=== PATIENT | female | born 1995 | race Hispanic/Latino ===

== ENCOUNTER 2018-10-31 13:48 | Emergency (ER) | payer OTHER ==
--- NOTE | 2018-10-31 16:04 | RAD REPORT ---
EXAM DESCRIPTION: Jett Gonzales (2 Views)10/31/2018 3:57 pm CLINICAL HISTORY: Cough COMPARISON: None FINDINGS: The lungs appear clear of acute infiltrate. The heart is normal size IMPRESSION: No acute abnormalities displayed
--- NOTE | 2018-10-31 16:14 | ER ---
Nurse's Notes [facility] Name: Angel Leonardo Age: 23 yrs Sex: Female : 1995 Arrival Date: 10/31/2018 Time: 13:52 Bed 24 Private MD: None, None Diagnosis: Cough Presentation: 10/31 14:05 Presenting complaint: Patient states: Pain with cough x 3 weeks. Pain is worse at night hb when supine. Denies fever. Transition of care: patient was not received from another setting of care. Onset of symptoms is unknown. Risk Assessment: Do you want to hurt yourself or someone else? Patient reports no desire to harm self or others. Care prior to arrival: None. 14:05 Method Of Arrival: Ambulatory hb 14:05 Acuity: AURELIO 4 hb 16:23 Initial Sepsis Screen: Does the patient meet any 2 criteria? Yes Does the patient have ls4 a suspected source of infection? No. Patient's initial sepsis screen is negative. Triage Assessment: 15:10 General: Appears in no apparent distress. Behavior is calm, cooperative. Pain: ls4 Complains of pain in chest Pain currently is 6 out of 10 on a pain scale. Neuro: No deficits noted. Cardiovascular: No deficits noted. Respiratory: No deficits noted. GI: No deficits noted. : No deficits noted. 15:10 Musculoskeletal: No deficits noted. 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 - Social history:: Smoking status: Patient/guardian denies using tobacco. - Ebola Screening: : No symptoms or risks identified at this time. Screenin:33 Abuse screen: Denies threats or abuse. Denies injuries from another. Nutritional ls4 screening: No deficits noted. Tuberculosis screening: No symptoms or risk factors identified. Fall Risk None identified. Vital Signs: 14:06 BP 131 / 79; Pulse 93; Resp 18; Temp 97.4; Pulse Ox 99% on R/A; Pain 6/10; hb 15:10 BP 128 / 74; Pulse 78; Resp 16; Temp 98.4(O); Pulse Ox 99% on R/A; Pain 4/10; ls4 ED Course: 13:52 Patient arrived in ED. sb2 13:52 None, None is Private Physician. sb2 14:06 Triage completed. hb 14:06 Arm band placed on right wrist. hb 14:10 Patient has correct armband on for positive identification. Bed in low position. Side ls4 rails up X 1. Warm blanket given. 15:11 Lisa Albert FNP-C is [facility]. kb 15:11 Lion Sarmiento MD is Attending Physician. kb 15:27 Cece Saleh, RN is Primary Nurse. ls4 15:55 Chest Pa And Lat (2 Views) XRAY In Process Unspecified. EDMS 16:08 EKG done, by gyroscope technician. reviewed by Lisa HOUSE. sm3 16:23 No provider procedures requiring assistance completed. Patient did not have IV access ls4 during this emergency room visit. Administered Medications: No medications were administered Point of Care Testing: Urine : 15:28 hCG Reading: Negative; ls4 Outcome: 16:13 Discharge ordered by . kb 16:24 Discharged to home ambulatory, with family. ls4 16:24 Condition: good 16:24 Discharge instructions given to patient, family, Instructed on discharge instructions, follow up and referral plans. safety practices, Demonstrated understanding of instructions, follow-up care, medications. 16:32 Patient left the ED. ls4 Signatures: Dispatcher [employer] EDMA Lisa Albert FNP-C FNP-Ckb Baxter, Heather, RN RN Elsy Mora sb2 Syl Sanchez 3 Cece Saleh, RN RN ls4
--- NOTE | 2018-10-31 16:14 | EDPHYS ---
Physician Documentation [facility] Name: Angel Leonardo Age: 23 yrs Sex: Female : 1995 Arrival Date: 10/31/2018 Time: 13:52 Bed 24 Private MD: None, None ED Physician Lion Sarmiento HPI: 10/31 15:27 This 23 yrs old Female presents to ER via Ambulatory with complaints of kb Painful Cough. 15:27 The patient or guardian reports cough, that is intermittent, described as moderate, kb with no sputum, difficulty breathing. Onset: The symptoms/episode began/occurred 3 week(s) ago. Severity of symptoms: At their worst the symptoms were mild, moderate, in the emergency department the symptoms are unchanged. Modifying factors: The symptoms are alleviated by nothing, the symptoms are aggravated by nothing. Associated signs and symptoms: Pertinent positives: chest pain, Pertinent negatives: diarrhea, ear ache, fever, nausea, rhinorrhea, sore throat, vomiting. The patient has not experienced similar symptoms in the past. The patient has not recently seen a physician. Pt reports chest pain, shortness of breath and cough every night for the past 3 weeks. Denies fever. States she coughs up phlem in the mornings. . 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 - Social history:: Smoking status: Patient/guardian denies using tobacco. - Ebola Screening: : No symptoms or risks identified at this time. ROS: 15:24 Constitutional: Negative for fever, chills, and weight loss, ENT: Negative for injury, kb pain, and discharge, Neck: Negative for injury, pain, and swelling, Abdomen/GI: Negative for abdominal pain, nausea, vomiting, diarrhea, and constipation, Back: Negative for injury and pain, MS/Extremity: Negative for injury and deformity, Skin: Negative for injury, rash, and discoloration, Neuro: Negative for headache, weakness, numbness, tingling, and seizure. 15:24 Cardiovascular: Positive for chest pain, Negative for edema, orthopnea, palpitations, paroxysmal nocturnal dyspnea. 15:24 Respiratory: Positive for cough, with no reported sputum, shortness of breath, Negative for dyspnea on exertion, hemoptysis, orthopnea, pleurisy, sputum production, wheezing. Exam: 15:27 Constitutional: This is a well developed, well nourished patient who is awake, alert, kb and in no acute distress. Head/Face: Normocephalic, atraumatic. ENT: Nares patent. No nasal discharge, no septal abnormalities noted. Tympanic membranes are normal and external auditory canals are clear. Oropharynx with no redness, swelling, or masses, exudates, or evidence of obstruction, uvula midline. Mucous membranes moist. Neck: Trachea midline, no thyromegaly or masses palpated, and no cervical lymphadenopathy. Supple, full range of motion without nuchal rigidity, or vertebral point tenderness. No Meningismus. Chest/axilla: Normal chest wall appearance and motion. Nontender with no deformity. No lesions are appreciated. Cardiovascular: Regular rate and rhythm with a normal S1 and S2. No gallops, murmurs, or rubs. Normal PMI, no JVD. No pulse deficits. Respiratory: Lungs have equal breath sounds bilaterally, clear to auscultation and percussion. No rales, rhonchi or wheezes noted. No increased work of breathing, no retractions or nasal flaring. Abdomen/GI: Soft, non-tender, with normal bowel sounds. No distension or tympany. No guarding or rebound. No evidence of tenderness throughout. Skin: Warm, dry with normal turgor. Normal color with no rashes, no lesions, and no evidence of cellulitis. MS/ Extremity: Pulses equal, no cyanosis. Neurovascular intact. Full, normal range of motion. Neuro: Awake and alert, GCS 15, oriented to person, place, time, and situation. Cranial nerves II-XII grossly intact. Motor strength 5/5 in all extremities. Sensory grossly intact. Cerebellar exam normal. Normal gait. Vital Signs: 14:06 BP 131 / 79; Pulse 93; Resp 18; Temp 97.4; Pulse Ox 99% on R/A; Pain 6/10; hb 15:10 BP 128 / 74; Pulse 78; Resp 16; Temp 98.4(O); Pulse Ox 99% on R/A; Pain 4/10; ls4 MDM: 15:14 Patient medically screened. kb 15:23 Data reviewed: vital signs, nurses notes. Data interpreted: Pulse oximetry: on room air kb is 99 %. Interpretation: normal. 16:10 Counseling: I had a detailed discussion with the patient and/or guardian regarding: the kb historical points, exam findings, and any diagnostic results supporting the discharge/admit diagnosis, radiology results, the need for outpatient follow up, a family practitioner, to return to the emergency department if symptoms worsen or persist or if there are any questions or concerns that arise at home. 10/31 15:20 Order name: Chest Pa And Lat (2 Views) XRAY; Complete Time: 16:10 kb 10/31 15:20 Order name: EKG; Complete Time: 15:21 kb 10/31 15:20 Order name: EKG - Nurse/Tech; Complete Time: 16:21 kb Administered Medications: No medications were administered Point of Care Testing: Urine : 15:28 hCG Reading: Negative; ls4 Disposition: 17:56 Co-signature as Attending Physician, Lion Sarmiento MD. rn Disposition: 10/31/18 16:13 Discharged to Home. Impression: Cough. - Condition is Stable. - Discharge Instructions: Cough, Adult, [id number]. - Prescriptions for Tessalon Perles 100 mg Oral Capsule - take 1 capsule by ORAL route every 8 hours As needed; 15 capsule. Albuterol Sulfate 90 mcg/actuation - inhale 1-2 puff by INHALATION route every 4-6 hours; 1 Inhaler. - Work release form, Medication Reconciliation Form, Thank You Letter, Antibiotic Education, Prescription Opioid Use form. - Follow up: Emergency Department; When: As needed; Reason: Worsening of condition. Follow up: Private Physician; When: 2 - 3 days; Reason: Recheck today's complaints, Continuance of care, Re-evaluation by your physician. Signatures: Dispatcher [employer] Lisa Delgado, ROLL FILLER-C ROLL FILLER-Ckb Lion Sarmiento MD MD rn Baxter, Heather, RN RN hb Stewart, Lisa, RN RN ls4 Corrections: (The following items were deleted from the chart) 16:32 16:13 10/31/2018 16:13 Discharged to Home. Impression: Cough. Condition is Stable. ls4 Discharge Instructions: Cough, Adult, [id number]. Prescriptions for Tessalon Perles 100 mg Oral Capsule - take 1 capsule by ORAL route every 8 hours As needed; 15 capsule, Albuterol Sulfate 90 mcg/actuation - inhale 1-2 puff by INHALATION route every 4-6 hours; 1 Inhaler. and Forms are Medication Reconciliation Form, Thank You Letter, Antibiotic Education, Prescription Opioid Use. Follow up: Emergency Department; When: As needed; Reason: Worsening of condition. Follow up: Private Physician; When: 2 - 3 days; Reason: Recheck today's complaints, Continuance of care, Re-evaluation by your physician. kb
--- NOTE | 2018-10-31 23:12 | EKG ---
Test Date: 2018-10-31 Test Time: 15:59:45 Meat Packager: SHANNA MEASUREMENT RESULTS: Intervals: Rate: 66 [place]: 154 QRSD: 84 QT: 370 QTc: 387 [place]: P: 59 [place]: 154 QRS: 84 T: 59 INTERPRETIVE STATEMENTS: Normal sinus rhythm Possible Left atrial enlargement Borderline ECG No previous ECG available for comparison Electronically Signed On 10-31-18 23:12:02 MANAGER STRATEGY & ACCOUNT by Leonel Loyd
== END 2018-10-31 16:32 | disposition home or self-care (01) ==
LOC: ER 13:48
DX: R05 Cough (principal)
CPT/HCPCS: 71046; 93005; 99283

== ENCOUNTER 2019-03-12 07:40 | Emergency (ER) | payer OTHER, SELFPAY ==
[2019-03-12 08:34] LABS: Absolute Lymphocytes (CBC) 1.9 K/uL (0.7-4.9); Absolute Monocytes 0.5 K/uL (0.1-1.3); Absolute Neutrophil 3.9 K/uL (1.8-8.0); Basophils % 0.9 % (0-1.3); Eosinophils % 7.3 % (0-4.4); Hematocrit 32.1 % (36.0-45.0); Lymphocytes % 28.1 % (15.3-44.8); MPV 9.3 fL (7.6-11.3); Monocytes % 7.1 % (3.3-12.3); RBC Red Blood Cell Count 4.34 M/uL (3.86-4.86)
[2019-03-12] MEDS ORDERED: NA CHLORIDE 0.9% 1,000 ML ONE (08:36)
[2019-03-12 08:53] LABS: ALT/SGPT 19 U/L (12-78); AST/SGOT 10 U/L (15-37); Albumin 3.3 g/dL (3.4-5.0); Alkaline Phosphatase 77 U/L (45-117); BUN Blood Urea Nitrogen 11 mg/dL (7-18); Bicarbonate 26 mmol/L (21-32); Bilirubin Direct < 0.1 mg/dL (0-0.2); Bilirubin Total 0.2 mg/dL (0.2-1.0); Glucose Level 77 mg/dL (74-106); Lipase 98 U/L (73-393); Potassium 3.8 mmol/L (3.5-5.1); Protein, Total 6.6 g/dL (6.4-8.2); Sodium Level 141 mmol/L (136-145)
[2019-03-12 09:02] LABS: HCG, Quantitative < 1 mIU/mL (1-3)
--- NOTE | 2019-03-12 09:02 | RAD REPORT ---
EXAM DESCRIPTION: US - Abdomen Exam Limited - 03/12/2019 8:39 am CLINICAL HISTORY: Abdominal pain COMPARISON: None. FINDINGS: Multiple small sub centimeter mobile gallstones are present layering along the dependent p ortion of the gallbladder. There is no wall thickening or pericholecystic fluid. No common duct stone or biliary tree dilatation identified. IMPRESSION: Numerous sub centimeter mobile gallstones are present. No wall thickening or pericholecystic fluid. No duct stone or biliary tree dilatation.
--- NOTE | 2019-03-12 09:36 | EDPHYS ---
Physician Documentation [facility] Name: Angel Leonardo Age: 23 yrs Sex: Female : 1995 Arrival Date: 03/12/2019 Time: 07:43 Bed 13 Private MD: ED Physician Sergio Samuel HPI: 03/12 08:16 This 23 yrs old Female presents to ER via Ambulatory with complaints of rich Abdominal Cramping. 08:16 The patient presents to the emergency department with abdominal pain, of the epigastric rich area, right upper quadrant and left upper quadrant. 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 - Social history:: Smoking status: Patient/guardian denies using tobacco. - Ebola Screening: : No symptoms or risks identified at this time. ROS: 08:17 Constitutional: Negative for fever, chills, and weight loss, Eyes: Negative for injury, rich pain, redness, and discharge, ENT: Negative for injury, pain, and discharge, Neck: Negative for injury, pain, and swelling, Cardiovascular: Negative for chest pain, palpitations, and edema, Respiratory: Negative for shortness of breath, cough, wheezing, and pleuritic chest pain, Back: Negative for injury and pain, : Negative for injury, bleeding, discharge, and swelling, MS/Extremity: Negative for injury and deformity, Skin: Negative for injury, rash, and discoloration, Neuro: Negative for headache, weakness, numbness, tingling, and seizure, Psych: Negative for depression, anxiety, suicide ideation, homicidal ideation, and hallucinations, Allergy/Immunology: Negative for hives, rash, and allergies, Endocrine: Negative for neck swelling, polydipsia, polyuria, polyphagia, and marked weight changes, Hematologic/Lymphatic: Negative for swollen nodes, abnormal bleeding, and unusual bruising. 08:17 Abdomen/GI: Positive for abdominal pain, of the epigastric area, right upper quadrant and left upper quadrant. Exam: 08:17 Constitutional: This is a well developed, well nourished patient who is awake, alert, rich and in no acute distress. Head/Face: Normocephalic, atraumatic. Eyes: Pupils equal round and reactive to light, extra-ocular motions intact. Lids and lashes normal. Conjunctiva and sclera are non-icteric and not injected. Cornea within normal limits. Periorbital areas with no swelling, redness, or edema. ENT: Nares patent. No nasal discharge, no septal abnormalities noted. Tympanic membranes are normal and external auditory canals are clear. Oropharynx with no redness, swelling, or masses, exudates, or evidence of obstruction, uvula midline. Mucous membranes moist. Neck: Trachea midline, no thyromegaly or masses palpated, and no cervical lymphadenopathy. Supple, full range of motion without nuchal rigidity, or vertebral point tenderness. No Meningismus. Chest/axilla: Normal chest wall appearance and motion. Nontender with no deformity. No lesions are appreciated. Cardiovascular: Regular rate and rhythm with a normal S1 and S2. No gallops, murmurs, or rubs. Normal PMI, no JVD. No pulse deficits. Respiratory: Lungs have equal breath sounds bilaterally, clear to auscultation and percussion. No rales, rhonchi or wheezes noted. No increased work of breathing, no retractions or nasal flaring. Back: No spinal tenderness. No costovertebral tenderness. Full range of motion. Skin: Warm, dry with normal turgor. Normal color with no rashes, no lesions, and no evidence of cellulitis. MS/ Extremity: Pulses equal, no cyanosis. Neurovascular intact. Full, normal range of motion. Neuro: Awake and alert, GCS 15, oriented to person, place, time, and situation. Cranial nerves II-XII grossly intact. Motor strength 5/5 in all extremities. Sensory grossly intact. Cerebellar exam normal. Normal gait. Psych: Awake, alert, with orientation to person, place and time. Behavior, mood, and affect are within normal limits. 08:17 Abdomen/GI: Inspection: abdomen appears normal, Bowel sounds: normal, Palpation: abdomen is soft and non-tender, Liver: no appreciated palpable abnormalities, Hernia: not appreciated. Vital Signs: 07:47 BP 113 / 87; Pulse 79; Resp 16; Temp 97.4(TE); Pulse Ox 100% on R/A; Weight 53.52 kg; hb Height 5 ft. 5 in. (165.10 cm); Pain 6/10; 09:59 BP 122 / 78; Pulse 70; Resp 16; Pulse Ox 100% on R/A; ae4 07:47 Body Mass Index 19.64 (53.52 kg, 165.10 cm) hb MDM: 07:43 Patient medically screened. [facility] 08:17 Data reviewed: vital signs, nurses notes, lab test result(s), radiologic studies, [facility] ultrasound. 03/12 08:16 Order name: Basic Metabolic Panel; Complete Time: 09:19 [facility] 03/12 08:16 Order name: CBC with Diff; Complete Time: 09:19 [facility] 03/12 08:16 Order name: Creatinine for Radiology; Complete Time: 09:19 [facility] 03/12 08:16 Order name: Hepatic Function; Complete Time: 09:19 [facility] 03/12 08:16 Order name: Lipase; Complete Time: 09:19 [facility] 03/12 08:16 Order name: HCG-Quantitative; Complete Time: 09:19 [facility] 03/12 08:16 Order name: IV Saline Lock; Complete Time: 08:28 [facility] 03/12 08:16 Order name: US Abdomen Limited; Complete Time: 09:19 [facility] 03/12 09:20 Order name: Urine Culture [facility] 03/12 09:25 Order name: Urine Dipstick--Ancillary (enter results) 03/12 09:25 Order name: Urine --Ancillary (enter results) 03/12 08:16 Order name: Labs collected and sent; Complete Time: 08:29 [facility] 03/12 08:16 Order name: Urine Dipstick-Ancillary (obtain specimen); Complete Time: 09:13 [facility] 03/12 08:16 Order name: Urine Test (obtain specimen); Complete Time: 09:13 [facility] Administered Medications: 08:28 Drug: NS 0.9% 1000 ml Route: IV; Rate: 1 bolus; Site: right antecubital; hb 09:30 Follow up: IV Status: Completed infusion ae4 09:48 Not Given (Ordering, and administering protocol): Rocephin - (cefTRIAXone) 1 grams IVPB ae4 once over 30 mins; (mix in 50 mL NS) 09:50 Drug: Rocephin 1 grams Route: IV; Rate: calculated rate; Site: right antecubital; ae4 09:59 Follow up: IV Status: Completed infusion ae4 Disposition: 03/12/19 09:35 Discharged to Home. Impression: Cholelithiasis, Urinary tract infection, site not specified. - Condition is Stable. - Discharge Instructions: Urinary Tract Infection, Adult, Cholelithiasis, Cholelithiasis, [id number], Urinary Tract Infection, Adult, [id number]. - Prescriptions for Keflex 500 mg Oral Capsule - take 1 capsule by ORAL route every 6 hours for 7 days; 28 capsule. - Medication Reconciliation Form, Thank You Letter, Antibiotic Education, Prescription Opioid Use form. - Family Work Release (03/12/19 10:01). ae4 - Follow up: Private Physician; When: 2 - 3 days; Reason: Recheck today's complaints, Continuance of care, Re-evaluation by your physician. Follow up: Ronn Zamudio MD; When: 2 - 3 days; Reason: Recheck today's complaints, Continuance of care, Re-evaluation by your physician. - Problem is new. - Symptoms have improved. Signatures: Dispatcher [employer] EDID Sergio Samuel MD MD cha Baxter, Heather, CHINO RN Suhail Pierre RN RN ae4 Corrections: (The following items were deleted from the chart) 10:00 09:35 03/12/2019 09:35 Discharged to Home. Impression: Cholelithiasis; Urinary tract ae4 infection, site not specified. Condition is Stable. Forms are Medication Reconciliation Form, Thank You Letter, Antibiotic Education, Prescription Opioid Use. Follow up: Private Physician; When: 2 - 3 days; Reason: Recheck today's complaints, Continuance of care, Re-evaluation by your physician. Follow up: Ronn Zamudio; When: 2 - 3 days; Reason: Recheck today's complaints, Continuance of care, Re-evaluation by your physician. Problem is new. Symptoms have improved. rich
--- NOTE | 2019-03-12 09:36 | ER ---
Nurse's Notes [facility] Name: Angel Leonardo Age: 23 yrs Sex: Female : 1995 Arrival Date: 03/12/2019 Time: 07:43 Bed 13 Private MD: Diagnosis: Cholelithiasis;Urinary tract infection, site not specified Presentation: 03/12 07:48 Presenting complaint: Upper abdominal cramping x 2 days. Pt stated "I started my period hb 17 days late last week and it was very light and only lasted a couple days. The last time this happened I was but my hCG levels were too low to show up in a urine test.". Transition of care: patient was not received from another setting of care. Onset of symptoms was March 11, 2019. Risk Assessment: Do you want to hurt yourself or someone else? Patient reports no desire to harm self or others. Initial Sepsis Screen: Does the patient meet any 2 criteria? No. Patient's initial sepsis screen is negative. Does the patient have a suspected source of infection? No. Patient's initial sepsis screen is negative. Care prior to arrival: None. 07:48 Method Of Arrival: Ambulatory hb 07:48 Acuity: AURELIO 3 hb Triage Assessment: 07:51 General: Appears in no apparent distress. Behavior is calm, cooperative. Pain: Pain hb currently is 6 out of 10 on a pain scale. EENT: No signs and/or symptoms were reported regarding the EENT system. Neuro: Level of Consciousness is awake, alert, obeys commands, Oriented to person, place, time, situation. Cardiovascular: Reports Capillary refill < 3 seconds Patient's skin is warm and dry. Respiratory: Airway is patent Respiratory effort is even, unlabored, Respiratory pattern is regular, symmetrical. GI: Abdomen is non-distended, Reports upper abdominal pain. : No signs and/or symptoms were reported regarding the genitourinary system. Derm: Skin is intact, is healthy with good turgor. Musculoskeletal: No signs and/or symptoms reported regarding the musculoskeletal system. 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 - Social history:: Smoking status: Patient/guardian denies using tobacco. - Ebola Screening: : No symptoms or risks identified at this time. Screenin:52 Abuse screen: Denies threats or abuse. Denies injuries from another. Nutritional hb screening: No deficits noted. Tuberculosis screening: No symptoms or risk factors identified. Fall Risk None identified. Assessment: 07:52 General: see triage assessment. hb 08:55 Reassessment: Received bedside report from CHINO Vieira, patient is lying in bed with IV ae4 fluids running. Patient states she has to urinate at this time, urine sample collected. and child remain at bedside. Vital Signs: 07:47 BP 113 / 87; Pulse 79; Resp 16; Temp 97.4(TE); Pulse Ox 100% on R/A; Weight 53.52 kg; hb Height 5 ft. 5 in. (165.10 cm); Pain 6/10; 09:59 BP 122 / 78; Pulse 70; Resp 16; Pulse Ox 100% on R/A; ae4 07:47 Body Mass Index 19.64 (53.52 kg, 165.10 cm) hb ED Course: 07:43 Patient arrived in ED. as 07:43 Sergio Samuel MD is Attending Physician. rich 07:47 Isha Parikh, CHINO is Primary Nurse. hb 07:47 Arm band placed on. hb 07:50 Triage completed. hb 07:52 Patient has correct armband on for positive identification. Bed in low position. Call hb light in reach. Side rails up X 1. 08:28 Inserted saline lock: 20 gauge in right antecubital area, using aseptic technique. hb Blood collected. 08:39 US Abdomen Limited In Process Unspecified. EDMS 08:46 Ultrasound completed. Patient tolerated well. Patient moved back from ultrasound. aa4 09:33 Ronn Zamudio MD is Referral Physician. rich Administered Medications: 08:28 Drug: NS 0.9% 1000 ml Route: IV; Rate: 1 bolus; Site: right antecubital; hb 09:30 Follow up: IV Status: Completed infusion ae4 09:48 Not Given (Ordering, and administering protocol): Rocephin - (cefTRIAXone) 1 grams IVPB ae4 once over 30 mins; (mix in 50 mL NS) 09:50 Drug: Rocephin 1 grams Route: IV; Rate: calculated rate; Site: right antecubital; ae4 09:59 Follow up: IV Status: Completed infusion ae4 Outcome: 09:35 Discharge ordered by MD. villanueva 10:00 Patient left the ED. ae4 Signatures: Dispatcher [employer] EDMS Sergio Samuel MD MD cha Martinez, Amelia as Frazier, Amanda aa4 Isha Parikh RN RN Suhail Pierre RN RN ae4 Corrections: (The following items were deleted from the chart) 07:54 07:48 Presenting complaint: Upper abdominal cramping x 2 days. Pt stated "I started my hb period 17 days late last week and it was very light, last time this happened I was but my hCG levels were too low to show up in a urine test." hb
[2019-03-12] MEDS ORDERED: CEFTRIAXONE/SWI 1gm 1 GM/10 ML SYR ONE (10:07)
[2019-03-12 10:09] LABS: Urine Blood 1+ (NEG); Urine Glucose NEGATIVE (NEG); Urine Protein NEGATIVE (NEG)
== END 2019-03-12 10:00 | disposition home or self-care (01) ==
LOC: ER 07:40
DX: K80.20 Calculus of gallbladder without cholecystitis without obstruction (principal); N39.0 Urinary tract infection, site not specified
CPT/HCPCS: 36415; 76705; 80048; 80076; 81003; 81025; 83690; 84702; 85025; 87086; 87088; 96361; 96374; 99284; J0696; J7030

== ENCOUNTER 2019-05-18 19:23 | Emergency (ER) | payer SELFPAY ==
[2019-05-18 19:58] LABS: Urine Blood NEGATIVE (NEG); Urine Glucose NEGATIVE (NEG); Urine Protein NEGATIVE (NEG); Urine Specific Gravity 1.015 (1.005-1.030)
[2019-05-18 20:04] LABS: Hematocrit 33.2 % (36.0-45.0); Lymphocytes % 35.3 % (15.3-44.8); MPV 9.1 fL (7.6-11.3); RBC Red Blood Cell Count 4.12 M/uL (3.86-4.86)
[2019-05-18 20:06] LABS: Urine Amorphous Sediment 2+ /HPF (NONE SEEN); Urine Bacteria <20 /HPF (<20); Urine Culture Reflex Order NOT NEEDED; Urine RBC <5 /HPF (NONE SEEN)
[2019-05-18 20:22] LABS: BUN Blood Urea Nitrogen 13 mg/dL (7-18); Bicarbonate 28 mmol/L (21-32); Glucose Level 80 mg/dL (74-106); Lipase 131 U/L (73-393); Potassium 3.5 mmol/L (3.5-5.1); Sodium Level 146 mmol/L (136-145)
[2019-05-18 20:32] LABS: Blood Morphology Comment NOTED (NOT SEEN); Platelet Estimate ADEQ; Urine White Blood Cell Casts OK
[2019-05-18 20:33] LABS: Poikilocytosis 1+
[2019-05-18 20:48] LABS: HCG, Quantitative < 1 mIU/mL (1-3)
--- NOTE | 2019-05-18 21:47 | ER ---
Nurse's Notes [facility] Name: Angel Leonardo Age: 23 yrs Sex: Female : 1995 Arrival Date: 05/18/2019 Time: 19:27 Bed 19 Private MD: Diagnosis: Lower abdominal pain, unspecified Presentation: 05/18 19:29 Presenting complaint: Patient states: Lower abdominal cramping. Positive aj test. Transition of care: patient was not received from another setting of care. Onset of symptoms was May 18, 2019. Risk Assessment: Do you want to hurt yourself or someone else? Patient reports no desire to harm self or others. Initial Sepsis Screen: Does the patient meet any 2 criteria? No. Patient's initial sepsis screen is negative. Does the patient have a suspected source of infection? No. Patient's initial sepsis screen is negative. 19:29 Method Of Arrival: Ambulatory aj 19:29 Acuity: AURELIO 3 aj 19:50 Care prior to arrival: None. cc3 Triage Assessment: 19:30 General: Appears in no apparent distress. comfortable, Behavior is calm, cooperative, aj appropriate for age. Pain: Denies pain. Neuro: Level of Consciousness is awake, alert, obeys commands, Oriented to person, place, time, situation, Appropriate for age. Respiratory: Airway is patent Respiratory effort is even, unlabored, Respiratory pattern is regular, symmetrical. GI: Reports cramping. Derm: Skin is intact, is healthy with good turgor, Skin is pink, warm \T\ dry. normal. 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 - Social history:: Smoking status: Patient/guardian denies using tobacco. - Ebola Screening: : Patient negative for fever greater than or equal to 101.5 degrees Fahrenheit, and additional compatible Ebola Virus Disease symptoms Patient denies exposure to infectious person Patient denies travel to an Ebola-affected area in the 21 days before illness onset No symptoms or risks identified at this time. Screenin:50 Abuse screen: Denies threats or abuse. Denies injuries from another. Nutritional cc3 screening: No deficits noted. Tuberculosis screening: No symptoms or risk factors identified. Fall Risk Ambulatory Aid- None/Bed Rest/Nurse Assist (0 pts). Gait- Normal/Bed Rest/Wheelchair (0 pts) Mental Status- Oriented to own ability (0 pts). Assessment: 19:32 General: Appears in no apparent distress. comfortable, Behavior is calm, cooperative, cc3 appropriate for age. Pain: Complains of pain in lower abdomen Pain currently is 3 out of 10 on a pain scale. Neuro: Level of Consciousness is awake, alert, obeys commands, Oriented to person, place, time, situation, Appropriate for age. Cardiovascular: Denies chest pain, Capillary refill < 3 seconds Patient's skin is warm and dry. Respiratory: Airway is patent Respiratory effort is even, unlabored, Respiratory pattern is regular, symmetrical. GI: Bowel sounds present X 4 quads. Abd is soft and non tender X 4 quads. : No signs and/or symptoms were reported regarding the genitourinary system. EENT: No signs and/or symptoms were reported regarding the EENT system. Derm: Skin is intact, is healthy with good turgor, Skin is pink, warm \T\ dry. normal. Musculoskeletal: Circulation, motion, and sensation intact. Range of motion: intact in all extremities. 20:10 Reassessment: Patient appears in no apparent distress at this time. Patient and/or cc3 family updated on plan of care and expected duration. Pain level reassessed. Patient is alert, oriented x 3, equal unlabored respirations, skin warm/dry/pink. 21:14 Reassessment: Patient appears in no apparent distress at this time. Patient and/or cc3 family updated on plan of care and expected duration. Pain level reassessed. Patient is alert, oriented x 3, equal unlabored respirations, skin warm/dry/pink. 21:39 Reassessment: Ultrasound done by obstetrics technician bedside, awaiting result. cc3 22:05 Reassessment: Patient appears in no apparent distress at this time. Patient and/or cc3 family updated on plan of care and expected duration. Pain level reassessed. Patient is alert, oriented x 3, equal unlabored respirations, skin warm/dry/pink. PA Page discharged the patient home with prescription given. IV cannula removed and patient left ER vitally stable and ambulatory with her friend. No valuables left in the patient's room. Patient denies pain at this time. Patient states feeling better. Patient states symptoms have improved. Vital Signs: 19:30 BP 138 / 82; Pulse 78; Resp 16; Temp 98.4; Pulse Ox 99% on R/A; Weight 68.04 kg; Height aj 5 ft. 7 in. (170.18 cm); 20:45 BP 119 / 78; Pulse 81; Resp 17 S; Pulse Ox 100% on R/A; cc3 21:13 BP 111 / 72; Pulse 76; Resp 16 S; Pulse Ox 100% on R/A; cc3 22:00 BP 112 / 77; Pulse 75; Resp 16 S; Pulse Ox 100% on R/A; cc3 19:30 Body Mass Index 23.49 (68.04 kg, 170.18 cm) ED Course: 19:27 Patient arrived in ED. es 19:29 Triage completed. aj 19:30 Arm band placed on left wrist. Patient placed in an exam room. aj 19:31 Sergio Tran PA is PHCP. cp 19:31 Sergio Samuel MD is Attending Physician. cp 19:32 Suzie Javier is Primary Nurse. cc3 19:40 Urine collected: clean catch specimen, clear, travis colored. Patient maintains SpO2 jp3 saturation greater than 95% on room air. 19:49 Bed in low position. Call light in reach. Side rails up X 1. Verbal reassurance given. jp3 Pulse ox on. NIBP on. 19:54 Urine Microscopic Only Sent. jp3 19:54 Urine Dipstick--Ancillary (enter results) Sent. jp3 19:54 Urine --Ancillary (enter results) Sent. jp3 19:55 Inserted saline lock: 20 gauge in right antecubital area, using aseptic technique. cc3 Blood collected. 22:05 No provider procedures requiring assistance completed. IV discontinued, intact, cc3 bleeding controlled, No redness/swelling at site. Pressure dressing applied. 22:20 US Transvaginal Study (Probe) In Process Unspecified. EDMS Administered Medications: No medications were administered Outcome: 21:46 Discharge ordered by . cp 22:05 Patient left the ED. cc3 22:05 Discharged to home ambulatory, with friend. cc3 22:05 Condition: stable 22:05 Discharge instructions given to patient, Instructed on discharge instructions, follow up and referral plans. medication usage, Demonstrated understanding of instructions, follow-up care, medications, Prescriptions given X 1. Signatures: Dispatcher [employer] China Escamilla, Lilo Lr RN, Corey, PA PA cp Pisarski, Jacob jp3 Suzie Javier cc3
--- NOTE | 2019-05-18 21:47 | EDPHYS ---
Physician Documentation [facility] Name: Angel Leonardo Age: 23 yrs Sex: Female : 1995 Arrival Date: 05/18/2019 Time: 19:27 Bed 19 Private MD: ED Physician Sergio Saumel HPI: 05/18 19:55 This 23 yrs old Female presents to ER via Ambulatory with complaints of cp Abdominal Pain. 19:55 The patient presents with abdominal pain in the lower abdomen. cp 19:55 Onset: The symptoms/episode began/occurred today. The symptoms do not radiate. cp Associated signs and symptoms: Pertinent negatives: blood in stools, constipation, diarrhea, dysuria, fever, vaginal discharge, vaginal bleeding. The symptoms are described as waxing/waning. Severity of pain: in the emergency department the pain is a 3 / 10. Patient reports taking test times 2 with 1 test positive and 1 test negative. 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 - Social history:: Smoking status: Patient/guardian denies using tobacco. - Ebola Screening: : Patient negative for fever greater than or equal to 101.5 degrees Fahrenheit, and additional compatible Ebola Virus Disease symptoms Patient denies exposure to infectious person Patient denies travel to an Ebola-affected area in the 21 days before illness onset No symptoms or risks identified at this time. ROS: 20:00 Constitutional: Negative for body aches, chills, fever, poor PO intake. cp 20:00 Eyes: Negative for injury, pain, redness, and discharge. cp 20:00 ENT: Negative for drainage from ear(s), ear pain, sore throat, difficulty swallowing, difficulty handling secretions. 20:00 Respiratory: Negative for cough, shortness of breath, wheezing. 20:00 Abdomen/GI: Positive for abdominal pain, of the right lower quadrant and left lower quadrant, Negative for vomiting, diarrhea, constipation, anorexia, black/tarry stool, rectal bleeding. 20:00 Back: Negative for radiated pain. 20:00 : Negative for urinary symptoms, vaginal bleeding, vaginal discharge. 20:00 Skin: Negative for rash. 20:00 All other systems are negative. Exam: 20:10 Constitutional: The patient appears in no acute distress, alert, awake, non-toxic, well cp developed, well nourished. 20:10 Head/Face: Normocephalic, atraumatic. cp 20:10 Eyes: Periorbital structures: appear normal, Conjunctiva: normal, no exudate, no injection, Lids and lashes: appear normal, bilaterally. 20:10 ENT: External ear(s): are unremarkable, Nose: is normal, Mouth: Lips: moist, Oral mucosa: pink and intact, moist, Posterior pharynx: is normal, airway is patent, no erythema, no exudate. 20:10 Chest/axilla: Inspection: normal, Palpation: is normal, no crepitus, no tenderness. 20:10 Cardiovascular: Rate: normal, Rhythm: regular. 20:10 Respiratory: the patient does not display signs of respiratory distress, Respirations: normal, no use of accessory muscles, no retractions, no splinting, no tachypnea, labored breathing, is not present, Breath sounds: are clear throughout, no decreased breath sounds, no stridor, no wheezing. 20:10 Abdomen/GI: Inspection: abdomen appears normal, Bowel sounds: active, all quadrants, Palpation: soft, in all quadrants, mild abdominal tenderness, in the right lower quadrant and left lower quadrant, rebound tenderness, is not appreciated, voluntary guarding, is not appreciated, involuntary guarding, is not appreciated. 20:10 Back: pain, is absent, ROM is normal. 21:46 : Pelvic Exam: The exam is refused by the patient/guardian. The risks and cp consequences are understood by the patient. Vital Signs: 19:30 BP 138 / 82; Pulse 78; Resp 16; Temp 98.4; Pulse Ox 99% on R/A; Weight 68.04 kg; Height aj 5 ft. 7 in. (170.18 cm); 20:45 BP 119 / 78; Pulse 81; Resp 17 S; Pulse Ox 100% on R/A; cc3 21:13 BP 111 / 72; Pulse 76; Resp 16 S; Pulse Ox 100% on R/A; cc3 22:00 BP 112 / 77; Pulse 75; Resp 16 S; Pulse Ox 100% on R/A; cc3 19:30 Body Mass Index 23.49 (68.04 kg, 170.18 cm) aj MDM: 19:32 Patient medically screened. cp 20:00 Differential diagnosis: Ectopic , Ovarian Torsion, Pelvic Inflammatory cp Disease, Pyelonephritis, Ureterolithiasis, urinary tract infection. 21:45 Data reviewed: vital signs, nurses notes, lab test result(s), radiologic studies, cp ultrasound. 21:45 Counseling: I had a detailed discussion with the patient and/or guardian regarding: the cp historical points, exam findings, and any diagnostic results supporting the discharge/admit diagnosis, lab results, radiology results, to return to the emergency department if symptoms worsen or persist or if there are any questions or concerns that arise at home. Special discussion: Based on the patient's Hx, exam, and Dx evaluation, there is no indication for emergent surgery or inpatient Tx. It is understood by the patient/guardian that if the Sx's persist or worsen they need to return immediately for re-evaluation. 05/18 19:49 Order name: Quantitative Hcg; Complete Time: 20:59 cp 05/18 19:49 Order name: Basic Metabolic Panel; Complete Time: 20:59 cp 05/18 21:36 Interpretation: Normal except: NA 146; CL 111. cp 05/18 19:49 Order name: CBC with Diff; Complete Time: 20:59 cp 05/18 21:36 Interpretation: Normal except: HGB 10.9; HCT 33.2; MCV 80.7; MCH 26.4; RDW 20.8; cp EOSINOPHIL % 6.1. 05/18 19:49 Order name: Lipase; Complete Time: 20:59 cp 05/18 19:49 Order name: Urine Microscopic Only; Complete Time: 20:33 cp 05/18 19:50 Order name: Urine Dipstick--Ancillary (enter results); Complete Time: 20:33 ag4 05/18 21:36 Interpretation: Normal except: UPH 8.0; UESTR TRACE. cp 05/18 19:49 Order name: Urine Test (obtain specimen); Complete Time: 19:50 cp 05/18 19:49 Order name: IV Saline Lock; Complete Time: 19:54 cp 05/18 19:49 Order name: Labs collected and sent; Complete Time: 19:54 cp 05/18 19:49 Order name: NPO; Complete Time: 19:50 cp 05/18 19:49 Order name: Urine Dipstick-Ancillary (obtain specimen); Complete Time: 19:50 cp 05/18 19:50 Order name: Urine --Ancillary (enter results); Complete Time: 20:33 ag4 05/18 20:05 Order name: CBC Smear Scan; Complete Time: 20:59 EDMS 05/18 20:34 Order name: Transvaginal Study (Probe) cp Administered Medications: No medications were administered Disposition: 05/18/19 21:46 Discharged to Home. Impression: Lower abdominal pain, unspecified. - Condition is Stable. - Discharge Instructions: Abdominal Pain, Adult. - Prescriptions for Ibuprofen 800 mg Oral Tablet - take 1 tablet by ORAL route every 8 hours As needed take with food; 30 tablet. - Medication Reconciliation Form, Thank You Letter, Antibiotic Education, Prescription Opioid Use form. - Follow up: Private Physician; When: 1 - 2 days; Reason: Worsening of condition. - Problem is new. - Symptoms have improved. Addendum: 05/20/2019 09:21 Co-signature as Attending Physician, Sergio Samuel MD I agree with the assessment and c ko plan of care. Signatures: Dispatcher [employer] China Escamilla RN RN aj Anderson, Corey, MD MD cha Page, Corey PA PA cp Suzie Javier cc3 Corrections: (The following items were deleted from the chart) 05/18 22:05 21:46 05/18/2019 21:46 Discharged to Home. Impression: Lower abdominal pain, cc3 unspecified. Condition is Stable. Forms are Medication Reconciliation Form, Thank You Letter, Antibiotic Education, Prescription Opioid Use. Follow up: Private Physician; When: 1 - 2 days; Reason: Worsening of condition. Problem is new. Symptoms have improved. cp 05/19 21:00 05/17 19:55 This 23 yrs old Female presents to ER via Ambulatory with cp complaints of Abdominal Pain. cp
--- NOTE | 2019-05-19 12:41 | RAD REPORT ---
EXAM DESCRIPTION: US - Transvaginal Study Probe - 05/18/2019 10:20 pm CLINICAL HISTORY: Abdominal pain, pelvic pain Preliminary findings provided the time of the study. COMPARISON: None. TECHNIQUE: Endovaginal sonography was performed. FINDINGS: Nabothian cysts are present. Uterus is normal size with no myometrial mass identifiable. E ndometrium is 11 mm in thickness. Echogenicity is homogeneous. No endometrial mass or polyp. Small na bothian cysts are present. Both ovaries are identifiable. Doppler evaluation shows normal blood flow within the stroma. Patient has multiple small cysts and follicles. None show suspicious characteristics. No solid ovarian or adn exal abnormality. Physiologic quantity of free fluid is identified. IMPRESSION: Endovaginal pelvic ultrasound, as detailed above, showing no significant or suspicious f inding.
== END 2019-05-18 22:05 | disposition home or self-care (01) ==
LOC: ER 19:23
DX: R10.30 Lower abdominal pain, unspecified (principal)
CPT/HCPCS: 36415; 76830; 80048; 81003; 81015; 81025; 83690; 84702; 85025; 99284

== ENCOUNTER 2019-05-25 22:45 | Emergency (ER) | payer SELFPAY ==
[2019-05-25] MEDS ORDERED: LIDOCAINE 1% MPF 5 ML VIAL ONE (23:24)
--- NOTE | 2019-05-25 23:46 | EDPHYS ---
Physician Documentation [facility] Name: Angel Leonardo Age: 23 yrs Sex: Female : 1995 Arrival Date: 05/25/2019 Time: 22:46 Bed 19 Private MD: ED Physician Arnol Xiao HPI: 05/25 23:10 This 23 yrs old Female presents to ER via Ambulatory with complaints of pm1 Laceration To Arm. 23:10 The patient has a laceration related to: handling garbage, occurred at work. The pm1 laceration(s) is(are) located on the right arm. Onset: The symptoms/episode began/occurred just prior to arrival. Associated signs and symptoms: The patient has no apparent associated signs or symptoms. The patient has not experienced similar symptoms in the past. The patient has not recently seen a physician. Patient was taking out the garbage and cut her arm on unknown object. 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 - Social history:: Smoking status: Patient/guardian denies using tobacco. - Ebola Screening: : No symptoms or risks identified at this time. ROS: 23:10 Constitutional: Negative for fever, chills, and weight loss, Neck: Negative for injury, pm1 pain, and swelling, Cardiovascular: Negative for chest pain, palpitations, and edema, Respiratory: Negative for shortness of breath, cough, wheezing, and pleuritic chest pain, Abdomen/GI: Negative for abdominal pain, nausea, vomiting, diarrhea, and constipation, Back: Negative for injury and pain, MS/Extremity: Negative for injury and deformity. 23:10 Neuro: Negative for headache, weakness, numbness, tingling, and seizure. 23:10 Skin: Positive for laceration(s), of the right arm. Exam: 23:10 Constitutional: This is a well developed, well nourished patient who is awake, alert, pm1 and in no acute distress. Head/Face: Normocephalic, atraumatic. Neck: Trachea midline, no thyromegaly or masses palpated, and no cervical lymphadenopathy. Supple, full range of motion without nuchal rigidity, or vertebral point tenderness. No Meningismus. Chest/axilla: Normal chest wall appearance and motion. Nontender with no deformity. No lesions are appreciated. Cardiovascular: Regular rate and rhythm with a normal S1 and S2. No gallops, murmurs, or rubs. Normal PMI, no JVD. No pulse deficits. Respiratory: Lungs have equal breath sounds bilaterally, clear to auscultation and percussion. No rales, rhonchi or wheezes noted. No increased work of breathing, no retractions or nasal flaring. Abdomen/GI: Soft, non-tender, with normal bowel sounds. No distension or tympany. No guarding or rebound. No evidence of tenderness throughout. Back: No spinal tenderness. No costovertebral tenderness. Full range of motion. 23:10 MS/ Extremity: Pulses equal, no cyanosis. Neurovascular intact. Full, normal range of motion. 23:10 Skin: Appearance: normal except for affected area, injury, laceration(s), the wound is approximately 3 cm(s), of the dorsal aspect of right forearm. 23:10 Neuro: Orientation: is normal, Motor: is normal, moves all fours. Vital Signs: 22:57 BP 116 / 77; Pulse 80; Resp 16; Temp 97.2; Pulse Ox 99% on R/A; Weight 65.77 kg; Height aa1 5 ft. 7 in. (170.18 cm); Pain 7/10; 23:45 BP 103 / 73; Pulse 83; Resp 16; Pulse Ox 100% on R/A; tr5 22:57 Body Mass Index 22.71 (65.77 kg, 170.18 cm) aa1 Laceration: 23:42 Wound Repair of 3cm ( 1.2in ) subcutaneous laceration to dorsal aspect of right pm1 forearm. Linear shaped.. Distal neuro/vascular/tendon intact. Anesthesia: Local anesthetic administered with 3 mls of 1% lidocaine. Wound prep: Extensive cleansing with betadine by md, Wound irrigation with saline by md, Wound explored extensively, Copious irrigation. Skin closed with 5 4-0 Prolene using simple sutures and sterile technique. Dressed with 4x4's. Patient tolerated well. MDM: 23:10 Patient medically screened. pm1 23:42 Data reviewed: vital signs. Data interpreted: Pulse oximetry: on room air is 99 %. pm1 Interpretation: normal. Counseling: I had a detailed discussion with the patient and/or guardian regarding: the historical points, exam findings, and any diagnostic results supporting the discharge/admit diagnosis, the need for outpatient follow up, suture removal in 10-14 days, to return to the emergency department if symptoms worsen or persist or if there are any questions or concerns that arise at home. 05/25 23:42 Order name: Prolene, Sutures pm1 05/25 23:42 Order name: Dressing - Wound pm1 05/25 23:42 Order name: Gloves, Sterile pm1 05/25 23:42 Order name: Setup Suture Tray pm1 Administered Medications: 23:39 Drug: Lidocaine (1 %) 5 ml Volume: 5 ml; Route: Infiltration; tr5 23:59 Follow up: Response: No adverse reaction tr5 23:58 Drug: Tetanus-Diphtheria Toxoid Adult 0.5 ml {[employer] Exp: tr5 07/04/2020. Lot #: [id number]. } Route: IM; Site: right ventrogluteal; 05/26 00:10 Follow up: Response: No adverse reaction tr5 Disposition: 02:35 Co-signature as Attending Physician, Arnol Xiao MD. Disposition: 05/25/19 23:44 Discharged to Home. Impression: Laceration without foreign body of right forearm. - Condition is Stable. - Discharge Instructions: Laceration Care, Adult. - Prescriptions for Keflex 500 mg Oral Capsule - take 1 capsule by ORAL route every 6 hours for 10 days; 40 capsule. Bactrim DS 800- 160 mg Oral Tablet - take 1 tablet by ORAL route every 12 hours for 10 days; 20 tablet. - Work release form, Medication Reconciliation Form, Thank You Letter, Antibiotic Education, Prescription Opioid Use form. - Follow up: Emergency Department; When: As needed; Reason: Worsening of condition. Follow up: Private Physician; When: 10 - 14 days; Reason: Recheck today's complaints, Continuance of care, Staple/Suture removal, Re-evaluation by your physician. - Problem is new. - Symptoms have improved. Signatures: Ivory Vaughn RN RN aa1 Anand Singleton, [employer] pm1 Arnol Xiao MD MD gs Casey Lincoln RN RN tr5 Corrections: (The following items were deleted from the chart) 00:17 05/25 23:44 05/25/2019 23:44 Discharged to Home. Impression: Laceration without foreign tr5 body of right forearm. Condition is Stable. Forms are Medication Reconciliation Form, Thank You Letter, Antibiotic Education, Prescription Opioid Use. Follow up: Emergency Department; When: As needed; Reason: Worsening of condition. Follow up: Private Physician; When: 10 - 14 days; Reason: Recheck today's complaints, Continuance of care, Staple/Suture removal, Re-evaluation by your physician. Problem is new. Symptoms have improved. pm1
--- NOTE | 2019-05-25 23:46 | ER ---
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 Laceration noted to R forearm with bleeding controlled. Transition of care: patient was not received from another setting of care. Complicating Factors: There are no complicating factors for this patient. Onset of symptoms was May 25, 2019. Risk Assessment: Do you want to hurt yourself or someone else? Patient reports no desire to harm self or others. Initial Sepsis Screen: Does the patient meet any 2 criteria? No. Patient's initial sepsis screen is negative. Does the patient have a suspected source of infection? Yes: Skin breakdown/wound. Care prior to arrival: None. 22:54 Method Of Arrival: Ambulatory aa 22:54 Acuity: AURELIO 4 aa1 Triage Assessment: 22:57 General: Appears in no apparent distress. comfortable, Behavior is calm, cooperative, aa1 appropriate for age. 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 - Social history:: Smoking status: Patient/guardian denies using tobacco. - Ebola Screening: : No symptoms or risks identified at this time. Screenin:08 Abuse screen: Denies threats or abuse. Nutritional screening: No deficits noted. tr5 Tuberculosis screening: No symptoms or risk factors identified. Fall Risk None identified. Assessment: 23:06 General: Appears uncomfortable, Behavior is calm, cooperative, appropriate for age. tr5 Pain: Complains of pain in right arm Pain does not radiate. Quality of pain is described as aching. Neuro: Level of Consciousness is awake, alert, Oriented to person, place, time, Power Plant Manager are equal bilaterally Moves all extremities. Gait is steady. Cardiovascular: Heart tones present Bruits absent Capillary refill < 3 seconds Pulses are all present. Edema is absent. Respiratory: Airway is patent Trachea midline Respiratory effort is even, unlabored, Respiratory pattern is regular, symmetrical, Breath sounds are clear bilaterally. GI: No signs and/or symptoms were reported involving the gastrointestinal system. : No signs and/or symptoms were reported regarding the genitourinary system. EENT: No signs and/or symptoms were reported regarding the EENT system. Derm: Skin Laceration to R upper arm. Skin is dry. Musculoskeletal: Capillary refill < 3 seconds, Range of motion: intact in all extremities. Injury Description: Laceration sustained to right arm is clean, not bleeding, was sustained 1-2 hours ago. is bleeding a small amount. 05/26 00:00 Reassessment: Patient and/or family updated on plan of care and expected duration. Pain tr5 level reassessed. Patient is alert, oriented x 3, equal unlabored respirations, skin warm/dry/pink. Patient states symptoms have improved. Vital Signs: 08 22:57 BP 116 / 77; Pulse 80; Resp 16; Temp 97.2; Pulse Ox 99% on R/A; Weight 65.77 kg; Height aa1 5 ft. 7 in. (170.18 cm); Pain 7/10; 23:45 BP 103 / 73; Pulse 83; Resp 16; Pulse Ox 100% on R/A; tr5 22:57 Body Mass Index 22.71 (65.77 kg, 170.18 cm) aa1 ED Course: 22:46 Patient arrived in ED. ds1 22:48 Casey Lincoln, [place] is Primary Nurse. tr5 22:56 Triage completed. aa1 22:57 Arm band placed on right wrist. aa1 23:00 Anand Singleton NP is PHCP. pm1 23:00 Arnol Xiao MD is Attending Physician. pm1 23:08 Patient has correct armband on for positive identification. Bed in low position. Call tr5 light in reach. Side rails up X 1. Pulse ox on. NIBP on. Door closed. Noise minimized. Administered Medications: 23:39 Drug: Lidocaine (1 %) 5 ml Volume: 5 ml; Route: Infiltration; tr5 23:59 Follow up: Response: No adverse reaction tr5 23:58 Drug: Tetanus-Diphtheria Toxoid Adult 0.5 ml {Custom Shoe Designer And Maker: [facility]. Exp: tr5 07/04/2020. Lot #: [id number]. } Route: IM; Site: right ventrogluteal; 05/26 00:10 Follow up: Response: No adverse reaction tr5 Outcome: 05/25 23:44 Discharge ordered by MD. pm1 05/26 00:17 Patient left the ED. tr5 Signatures: Ivory Vaughn RN RN james1 Mellissa Rankin1 Anand Singleton NP MECHANICAL PRODUCT ENGINEER pm1 Casey Lincoln RN RN tr5
[2019-05-25] MEDS ORDERED: TETANUS & DIPHTHERIA TOX,ADULT 0.5 ML VIAL ONE (23:57)
== END 2019-05-26 00:17 | disposition home or self-care (01) ==
LOC: ER 22:45
PROC: 0JQG0ZZ Repair Right Lower Arm Subcutaneous Tissue and Fascia, Open Approach (ICD-10-PCS; principal; 2019-05-26)
DX: S51.811A Laceration without foreign body of right forearm, initial encounter (principal); W26.8XXA Contact with other sharp object(s), not elsewhere classified, initial encounter; Y93.89 Activity, other specified; Y92.89 Other specified places as the place of occurrence of the external cause; Y99.8 Other external cause status; Z23 Encounter for immunization
CPT/HCPCS: 90471; 90714; 99283

== ENCOUNTER 2019-07-07 00:49 | Emergency (ER) | payer SELFPAY ==
--- NOTE | 2019-07-07 01:56 | EDPHYS ---
Physician Documentation [facility] Name: Angel Leonardo Age: 23 yrs Sex: Female : 1995 Arrival Date: 07/07/2019 Time: 00:52 Bed 28 Private MD: ED Physician Henry Rubalcava HPI: 07/07 01:40 This 23 yrs old Female presents to ER via Ambulatory with complaints of Left pm1 Toe Pain. 01:40 The patient presents with Left great toe nail yellowing and abnormal growth. Patient pm1 presenting to the ER with a request to remove her great toe nail. Patient's right great toe nail does not hurt but would like the have it removed it possible too. Context: the patient can fully bear weight, the patient is able to ambulate, without difficulty. Onset: The symptoms/episode began/occurred Many years ago. Modifying factors: The symptoms are alleviated by nothing, the symptoms are aggravated by nothing. Associated signs and symptoms: The patient has no apparent associated signs or symptoms. Severity of symptoms: in the emergency department the symptoms are actually worse. The patient has not recently seen a physician. 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 - Social history:: Smoking status: Patient/guardian denies using tobacco, Patient uses alcohol, occasionally. Patient/guardian denies using street drugs. - Ebola Screening: : Patient negative for fever greater than or equal to 101.5 degrees Fahrenheit, and additional compatible Ebola Virus Disease symptoms Patient denies exposure to infectious person Patient denies travel to an Ebola-affected area in the 21 days before illness onset. ROS: 01:40 MS/extremity: Positive for pain, of the left first toe, Negative for decreased range of pm1 motion, deformity. 01:40 Constitutional: Negative for fever, chills, and weight loss, Cardiovascular: Negative for chest pain, palpitations, and edema, Respiratory: Negative for shortness of breath, cough, wheezing, and pleuritic chest pain, Skin: Negative for injury, rash, and discoloration, Neuro: Negative for headache, weakness, numbness, tingling, and seizure. 01:40 All other systems are negative. Exam: 01:40 Constitutional: This is a well developed, well nourished patient who is awake, alert, pm1 and in no acute distress. Head/Face: Normocephalic, atraumatic. Chest/axilla: Normal chest wall appearance and motion. Nontender with no deformity. No lesions are appreciated. Cardiovascular: Regular rate and rhythm with a normal S1 and S2. No gallops, murmurs, or rubs. Normal PMI, no JVD. No pulse deficits. Respiratory: Lungs have equal breath sounds bilaterally, clear to auscultation and percussion. No rales, rhonchi or wheezes noted. No increased work of breathing, no retractions or nasal flaring. Back: No spinal tenderness. No costovertebral tenderness. Full range of motion. MS/ Extremity: Pulses equal, no cyanosis. Neurovascular intact. Full, normal range of motion. 01:40 Skin: Appearance: normal except for affected area, onychomycosis present to bilateral great toes. 01:40 Neuro: Orientation: is normal, Motor: is normal, moves all fours, Gait: is steady, at a normal pace, without difficulty. Vital Signs: 01:20 BP 113 / 84; Pulse 76; Resp 18; Temp 97.8(O); Pulse Ox 99% on R/A; Weight 68.04 kg (R); fc Height 5 ft. 7 in. (170.18 cm) (R); Pain 9/10; 01:20 Body Mass Index 23.49 (68.04 kg, 170.18 cm) fc MDM: 01:52 Patient medically screened. pm1 01:52 Data reviewed: vital signs. Data interpreted: Pulse oximetry: on room air is 99 %. pm1 Interpretation: normal. Counseling: I had a detailed discussion with the patient and/or guardian regarding: the historical points, exam findings, and any diagnostic results supporting the discharge/admit diagnosis, the need for outpatient follow up, for definitive care, a transport driver. Administered Medications: No medications were administered Disposition: 08:59 Co-signature as Attending Physician, Henry Rubalcava MD I agree with the assessment and wa plan of care. Disposition: 07/07/19 01:55 Discharged to Home. Impression: Tinea unguium. - Condition is Stable. - Discharge Instructions: Fungal Nail Infection. - Medication Reconciliation Form, Thank You Letter, Antibiotic Education, Prescription Opioid Use form. - Follow up: Emergency Department; When: As needed; Reason: Worsening of condition. Follow up: Private Physician; When: 2 - 3 days; Reason: Recheck today's complaints, Continuance of care, Re-evaluation by your physician. - Problem is new. - Symptoms are unchanged. Signatures: Katerina Coombs RN RN Anand Monson NP OBEDIENCE TRAINER pm1 David Johnson Henry Rubalcava MD MD wa Corrections: (The following items were deleted from the chart) 02:10 01:55 07/07/2019 01:55 Discharged to Home. Impression: Tinea unguium. Condition is wh Stable. Forms are Medication Reconciliation Form, Thank You Letter, Antibiotic Education, Prescription Opioid Use. Follow up: Emergency Department; When: As needed; Reason: Worsening of condition. Follow up: Private Physician; When: 2 - 3 days; Reason: Recheck today's complaints, Continuance of care, Re-evaluation by your physician. Problem is new. Symptoms are unchanged. pm1
--- NOTE | 2019-07-07 01:56 | ER ---
Nurse's Notes [facility] Name: Angel Leonardo Age: 23 yrs Sex: Female : 1995 Arrival Date: 07/07/2019 Time: 00:52 Bed 28 Private MD: Diagnosis: Tinea unguium Presentation: 07/07 01:20 Presenting complaint: Patient states: that she is having severe pain to left great toe. fc Toe nail is coming off and has fungus. Transition of care: patient was not received from another setting of care. Onset of symptoms was July 06, 2019. Risk Assessment: Do you want to hurt yourself or someone else? Patient reports no desire to harm self or others. Initial Sepsis Screen: Does the patient meet any 2 criteria? No. Patient's initial sepsis screen is negative. Does the patient have a suspected source of infection? No. Patient's initial sepsis screen is negative. Care prior to arrival: None. 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 - Social history:: Smoking status: Patient/guardian denies using tobacco, Patient uses alcohol, occasionally. Patient/guardian denies using street drugs. - Ebola Screening: : Patient negative for fever greater than or equal to 101.5 degrees Fahrenheit, and additional compatible Ebola Virus Disease symptoms Patient denies exposure to infectious person Patient denies travel to an Ebola-affected area in the 21 days before illness onset. Screenin:35 Abuse screen: Denies threats or abuse. Nutritional screening: No deficits noted. fc Tuberculosis screening: No symptoms or risk factors identified. Fall Risk None identified. Assessment: 01:43 General: Appears in no apparent distress. Behavior is calm, cooperative, appropriate wh for age. Pain: Complains of pain in left great toe Pain does not radiate. Pain currently is 5 out of 10 on a pain scale. Quality of pain is described as aching. Neuro: Level of Consciousness is awake, alert, obeys commands. Cardiovascular: Capillary refill < 3 seconds. Respiratory: Airway is patent Respiratory effort is even, unlabored, Respiratory pattern is regular, symmetrical. GI: Abdomen is flat, non-distended. : No signs and/or symptoms were reported regarding the genitourinary system. EENT: No signs and/or symptoms were reported regarding the EENT system. Derm: Skin is intact, is healthy with good turgor, Skin is pink, warm \T\ dry. normal. Musculoskeletal: Circulation, motion, and sensation intact. Vital Signs: 01:20 BP 113 / 84; Pulse 76; Resp 18; Temp 97.8(O); Pulse Ox 99% on R/A; Weight 68.04 kg (R); Height 5 ft. 7 in. (170.18 cm) (R); Pain 9/10; 01:20 Body Mass Index 23.49 (68.04 kg, 170.18 cm) ED Course: 00:52 Patient arrived in ED. ds1 01:20 Arm band placed on Patient placed in an exam room, on a stretcher. 01:34 Triage completed. 01:35 Patient has correct armband on for positive identification. Bed in low position. Call fc light in reach. Pulse ox on. NIBP on. 01:35 No provider procedures requiring assistance completed. 01:39 Anand Singleton NP is PHCP. pm1 01:39 Henry Rubalcava MD is Attending Physician. pm1 01:43 David Johnson is Primary Nurse. 02:10 Patient did not have IV access during this emergency room visit. Administered Medications: No medications were administered Outcome: 01:55 Discharge ordered by . pm1 02:09 Discharged to home ambulatory. 02:09 Condition: good 02:09 Discharge instructions given to patient, Instructed on discharge instructions, follow up and referral plans. POC Fungal Nail Infection Demonstrated understanding of instructions, follow-up care, POC 02:10 Patient left the ED. Signatures: Katerina Coombs RN RN Mellissa Rankin ds1 Anand Singleton NP REGULATORY AND COMPLIANCE TECHNICIAN pm1 David Johnson
[2019-07-07 02:51] VITALS: BP 113/84; TEMP 97.8; O2SAT 99
== END 2019-07-07 02:10 | disposition home or self-care (01) ==
LOC: ER 00:49
DX: B35.1 Tinea unguium (principal)
CPT/HCPCS: 99283

== ENCOUNTER 2019-09-03 15:17 | Emergency (ER) | payer SELFPAY ==
--- OUTSIDE RECORDS SUMMARY | 2019-09-03 15:20 | XMS REPORT ---
:1995 [facility] Address [address] [place] [address] [place] [id number] Care Team Providers Name Role Phone Unavailable Unavailable Unavailable Problems This patient has no known problems. Allergies, Adverse Reactions, Alerts This patient has no known allergies or adverse reactions. Medications This patient has no known medications.
[2019-09-03] MEDS ORDERED: KETOROLAC 30 MG/ML INJ ONE (16:56)
[2019-09-03] MEDS ORDERED: NA CHLORIDE 0.9% 1,000 ML ONE (16:56)
[2019-09-03 17:12] LABS: Absolute Lymphocytes (CBC) 1.9 K/uL (0.7-4.9); Hematocrit 34.4 % (36.0-45.0); Lymphocytes % 24.5 % (15.3-44.8); MPV 9.3 fL (7.6-11.3); RBC Red Blood Cell Count 4.08 M/uL (3.86-4.86)
[2019-09-03 17:30] LABS: ALT/SGPT 18 U/L (12-78); AST/SGOT 10 U/L (15-37); Albumin 3.7 g/dL (3.4-5.0); Alkaline Phosphatase 61 U/L (45-117); BUN Blood Urea Nitrogen 8 mg/dL (7-18); Bicarbonate 25 mmol/L (21-32); Bilirubin Total 0.3 mg/dL (0.2-1.0); Glucose Level 90 mg/dL (74-106); Potassium 3.8 mmol/L (3.5-5.1); Sodium Level 138 mmol/L (136-145)
[2019-09-03 18:13] LABS: Urine Blood NEGATIVE (NEG); Urine Glucose NEGATIVE (NEG); Urine Protein NEGATIVE (NEG); Urine Specific Gravity 1.025 (1.005-1.030)
--- NOTE | 2019-09-03 18:56 | ER ---
Nurse's Notes [facility] Name: Angel Leonardo Age: 24 yrs Sex: Female : 1995 Arrival Date: 09/03/2019 Time: 15:20 Bed 30 Private MD: Diagnosis: Abdominal pain in ;1st trimester pregancy;Urinary tract infection, site not specified Presentation: 09/03 15:24 Presenting complaint: Diarrhea x 4 days, lower abdominal pain and nausea x 2 days. hb Denies fever. Transition of care: patient was not received from another setting of care. Onset of symptoms was August 30, 2019. Risk Assessment: Do you want to hurt yourself or someone else? Patient reports no desire to harm self or others. Initial Sepsis Screen: Does the patient meet any 2 criteria? No. Patient's initial sepsis screen is negative. Does the patient have a suspected source of infection? No. Patient's initial sepsis screen is negative. Care prior to arrival: None. 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 - Social history:: Smoking status: Patient/guardian denies using tobacco. - Ebola Screening: : No symptoms or risks identified at this time. Screenin:16 Abuse screen: Denies threats or abuse. Nutritional screening: No deficits noted. tw2 Tuberculosis screening: No symptoms or risk factors identified. Fall Risk None identified. Assessment: 16:20 General: Appears in no apparent distress. Behavior is calm, cooperative, appropriate tw2 for age. Pain: Complains of pain in abdomen. Neuro: Level of Consciousness is awake, alert, obeys commands, Oriented to person, place, time, situation. Cardiovascular: Heart tones S1 S2 Patient's skin is warm and dry. Respiratory: Airway is patent Respiratory effort is even, unlabored, Respiratory pattern is regular, symmetrical, Breath sounds are clear bilaterally. GI: Abdomen is flat, Bowel sounds present X 4 quads. Abd is soft and non tender X 4 quads. Reports lower abdominal pain, upper abdominal pain, diarrhea, nausea. : No signs and/or symptoms were reported regarding the genitourinary system. EENT: No signs and/or symptoms were reported regarding the EENT system. Derm: No signs and/or symptoms reported regarding the dermatologic system. Musculoskeletal: Range of motion: intact in all extremities. 17:14 Reassessment: Patient appears in no apparent distress at this time. No changes from tw2 previously documented assessment. Patient and/or family updated on plan of care and expected duration. Pain level reassessed. Patient is alert, oriented x 3, equal unlabored respirations, skin warm/dry/pink. 18:38 Reassessment: Patient appears in no apparent distress at this time. No changes from tw2 previously documented assessment. Patient and/or family updated on plan of care and expected duration. Pain level reassessed. Patient is alert, oriented x 3, equal unlabored respirations, skin warm/dry/pink. 19:12 Reassessment: No changes from previously documented assessment. Patient and/or family lc1 updated on plan of care and expected duration. Pain level reassessed. Patient is alert, oriented x 3, equal unlabored respirations, skin warm/dry/pink. Patient denies pain at this time. 20:00 Reassessment: No changes from previously documented assessment. Patient and/or family lc1 updated on plan of care and expected duration. Pain level reassessed. Patient is alert, oriented x 3, equal unlabored respirations, skin warm/dry/pink. Patient denies pain at this time. Patient states feeling better. Vital Signs: 15:26 BP 119 / 71; Pulse 93; Resp 16; Temp 98(TE); Pulse Ox 99% on R/A; Weight 68.04 kg; hb Height 5 ft. 7 in. (170.18 cm); Pain 5/10; 17:13 BP 106 / 72; Pulse 78; Resp 17; Pulse Ox 100% on R/A; tw2 18:38 BP 100 / 56; Pulse 83; Resp 17; Pulse Ox 100% on R/A; tw2 19:41 BP 111 / 70; Pulse 76; Resp 18; Pulse Ox 100% on R/A; Pain 0/10; lc1 20:20 BP 114 / 71; Pulse 81; Resp 18; Pulse Ox 100% on R/A; Pain 0/10; lc1 15:26 Body Mass Index 23.49 (68.04 kg, 170.18 cm) hb ED Course: 15:20 Patient arrived in ED. mr 15:26 Triage completed. hb 15:26 Arm band placed on. hb 16:16 Sherita Lambert, RN is Primary Nurse. tw2 16:17 Bed in low position. Call light in reach. tw2 16:19 Amadeo Foreman MD is Attending Physician. ps1 17:00 Inserted saline lock: 22 gauge in right antecubital area, using aseptic technique. tw2 Blood collected. 17:44 Radiology exam delayed due to test not completed at this time. is 18:20 Transvaginal OB US In Process Unspecified. EDMS 18:54 Urine Microscopic Only Sent. tw2 18:55 Maurice Erickson MD is Referral Physician. ps1 19:12 Report received from Sherita, patient resting in bed, friend at bedside. Warm blanket lc1 given. 19:23 Rowan Gallagher FNP-C is PHCP. snw 20:21 No provider procedures requiring assistance completed. IV discontinued, intact, lc1 bleeding controlled, Pressure dressing applied. Administered Medications: 17:00 Drug: NS 0.9% 1000 ml Route: IV; Rate: 1 bolus; Site: right antecubital; tw2 19:14 Follow up: Response: No adverse reaction; IV Status: Completed infusion lc1 17:00 Drug: TORadol - Ketorolac 15 mg Route: IVP; Site: right antecubital; tw2 19:14 Follow up: Response: Pain is decreased; RASS: Alert and Calm (0) lc1 Outcome: 18:56 Discharge ordered by . ps1 20:21 Discharged to home ambulatory. lc1 20:21 Condition: improved 20:21 Discharge instructions given to patient, Instructed on discharge instructions, follow up and referral plans. medication usage, Demonstrated understanding of instructions, follow-up care, medications, Prescriptions given X 2. 20:22 Patient left the ED. lc1 Signatures: Dispatcher [employer] EDMS Rowan Gallagher FNP-C [facility]-[place] Nguyễn Lisa lc1 Isha Parikh RN RN Sherita Lambert RN RN tw2 Foreman, Amadeo, MD MD ps1 Villagran, Diana is
--- NOTE | 2019-09-03 18:57 | EDPHYS ---
Physician Documentation [facility] Name: Angel Leonardo Age: 24 yrs Sex: Female : 1995 Arrival Date: 09/03/2019 Time: 15:20 Bed 30 Private MD: ED Physician Amadeo Foreman HPI: 09/03 18:49 This 24 yrs old Female presents to ER via Ambulatory with complaints of ps1 Abdominal Pain. 18:49 with non-specific lower abdominal pain. Has no idea last menstrual cycle 2/2 ps1 abnormal periods. States that she has had intermittent nausea. Non-localizing pain. Sexually active with no protection. No fever, no VB. . 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 - Social history:: Smoking status: Patient/guardian denies using tobacco. - Ebola Screening: : No symptoms or risks identified at this time. ROS: 18:49 Constitutional: Negative for fever, chills, and weight loss, Eyes: Negative for injury, ps1 pain, redness, and discharge, Cardiovascular: Negative for chest pain, palpitations, and edema, Respiratory: Negative for shortness of breath, cough, wheezing, and pleuritic chest pain, : Negative for injury, bleeding, discharge, and swelling, MS/Extremity: Negative for injury and deformity, Skin: Negative for injury, rash, and discoloration, Neuro: Negative for headache, weakness, numbness, tingling, and seizure. 18:49 Abdomen/GI: Positive for abdominal pain, nausea. Exam: 18:49 Constitutional: This is a well developed, well nourished patient who is awake, alert, ps1 and in no acute distress. Head/Face: Normocephalic, atraumatic. Eyes: Pupils equal round and reactive to light, extra-ocular motions intact. Lids and lashes normal. Conjunctiva and sclera are non-icteric and not injected. Cardiovascular: Regular rate and rhythm. No gallops, murmurs, or rubs. Normal PMI, no JVD. No pulse deficits. Respiratory: Lungs have equal breath sounds bilaterally, clear to auscultation and percussion. No rales, rhonchi or wheezes noted. No increased work of breathing, no retractions or nasal flaring. Skin: Warm, dry with normal turgor. Normal color with no rashes, no lesions, and no evidence of cellulitis. MS/ Extremity: Pulses equal, no cyanosis. Neurovascular intact. Full, normal range of motion. 18:49 Abdomen/GI: Inspection: abdomen appears normal, Bowel sounds: normal, Palpation: abdomen is soft and non-tender, mild abdominal tenderness, in the right lower quadrant and left lower quadrant. Vital Signs: 15:26 BP 119 / 71; Pulse 93; Resp 16; Temp 98(TE); Pulse Ox 99% on R/A; Weight 68.04 kg; hb Height 5 ft. 7 in. (170.18 cm); Pain 5/10; 17:13 BP 106 / 72; Pulse 78; Resp 17; Pulse Ox 100% on R/A; tw2 18:38 BP 100 / 56; Pulse 83; Resp 17; Pulse Ox 100% on R/A; tw2 19:41 BP 111 / 70; Pulse 76; Resp 18; Pulse Ox 100% on R/A; Pain 0/10; lc1 20:20 BP 114 / 71; Pulse 81; Resp 18; Pulse Ox 100% on R/A; Pain 0/10; lc1 15:26 Body Mass Index 23.49 (68.04 kg, 170.18 cm) hb MDM: 17:02 Patient medically screened. ps1 18:49 Differential diagnosis: ectopic , normal IUP, UTI. Data reviewed: vital signs, ps1 nurses notes, lab test result(s), radiologic studies, ultrasound. Counseling: I had a detailed discussion with the patient and/or guardian regarding: the historical points, exam findings, and any diagnostic results supporting the discharge/admit diagnosis, lab results, radiology results, the need for outpatient follow up, an OB/Gyne specialist, to return to the emergency department if symptoms worsen or persist or if there are any questions or concerns that arise at home. ED course: TVUS with IUP 7w6d. FHT 165. Final report per rads. . ED course: Pt to follow up with Dr. Erickson. 09/03 16:49 Order name: CBC with Diff; Complete Time: 17:16 ps1 09/03 16:49 Order name: CMP; Complete Time: 17:45 ps1 09/03 17:15 Order name: Urine Dipstick--Ancillary (enter results); Complete Time: 18:23 bd 09/03 17:15 Order name: Urine --Ancillary (enter results); Complete Time: 18:23 bd 09/03 17:16 Order name: Beta hcg; Complete Time: 18:47 [facility] 09/03 17:16 Order name: Abo/rh Typing; Complete Time: 18:23 [facility] 09/03 16:49 Order name: Urine Dipstick-Ancillary (obtain specimen); Complete Time: 17:07 [facility] 09/03 16:49 Order name: Urine Test (obtain specimen); Complete Time: 17:07 [facility] 09/03 17:16 Order name: Transvaginal OB US; Complete Time: 19:23 [facility] 09/03 18:24 Order name: Urine Microscopic Only; Complete Time: 19:57 [facility] 09/03 18:26 Order name: ABO/RH no charge; Complete Time: 18:35 [facility] 09/03 19:56 Order name: Urine Culture [facility] 09/03 16:54 Order name: IV Start; Complete Time: 17:07 tw2 Administered Medications: 17:00 Drug: NS 0.9% 1000 ml Route: IV; Rate: 1 bolus; Site: right antecubital; tw2 19:14 Follow up: Response: No adverse reaction; IV Status: Completed infusion 1 17:00 Drug: TORadol - Ketorolac 15 mg Route: IVP; Site: right antecubital; tw2 19:14 Follow up: Response: Pain is decreased; RASS: Alert and Calm (0) lc1 Disposition: 09/03/19 18:56 Discharged to Home. Impression: Abdominal pain in , 1st trimester pregancy, Urinary tract infection, site not specified. - Condition is Stable. - Discharge Instructions: and Urinary Tract Infection, Abdominal Pain During , First Trimester of . - Prescriptions for Vitamin 27- 0.8 mg Oral Tablet - take 1 tablet by ORAL route once daily; 60 tablet. Macrobid 100 mg Oral Capsule - take 1 capsule by ORAL route every 12 hours for 10 days; 20 capsule. - Work release form, Medication Reconciliation Form, Thank You Letter, Antibiotic Education, Prescription Opioid Use form. - Follow up: Maurice Erickson MD; When: 48 Hours; Reason: Further diagnostic work-up, Recheck today's complaints, Continuance of care, Re-evaluation by your physician. - Problem is new. - Symptoms are unchanged. Signatures: Dispatcher [employer] EDMS Rowan Gallagher, LEGAL ASSOCIATE-C LEGAL ASSOCIATE-Csnw Cece Rodriguez lc1 Isha Parikh, RN RN Sherita Lambert RN RN tw2 Amadeo Foreman MD MD ps1 Corrections: (The following items were deleted from the chart) 19:57 18:56 09/03/2019 18:56 Discharged to Home. Impression: Abdominal pain in ; 1st snw trimester pregancy. Condition is Stable. Forms are Work release form, Medication Reconciliation Form, Thank You Letter, Antibiotic Education, Prescription Opioid Use. Follow up: Maurice Erickson; When: 48 Hours; Reason: Further diagnostic work-up, Recheck today's complaints, Continuance of care, Re-evaluation by your physician. Problem is new. Symptoms are unchanged. ps1 20:22 19:57 09/03/2019 18:56 Discharged to Home. Impression: Abdominal pain in ; 1st lc1 trimester pregancy; Urinary tract infection, site not specified. Condition is Stable. Discharge Instructions: Abdominal Pain During , First Trimester of . Forms are Work release form, Medication Reconciliation Form, Thank You Letter, Antibiotic Education, Prescription Opioid Use. Follow up: Maurice Erickson; When: 48 Hours; Reason: Further diagnostic work-up, Recheck today's complaints, Continuance of care, Re-evaluation by your physician. Problem is new. Symptoms are unchanged. snw
--- NOTE | 2019-09-03 19:16 | RAD REPORT ---
EXAM DESCRIPTION: US - Transvaginal OB - 09/03/2019 6:20 pm CLINICAL HISTORY: , abdominal and pelvic pain COMPARISON: None. FINDINGS: Single normal shaped gestational sac is identified. Yolk sac and pole are seen. No i ntrauterine mass or hematoma seen. heart rate is 165 BPM. Cerulean-rump length corresponds to a 7 week 6 day age. Calculated PAUL is 04/15/2020. Small amount of free fluid is present in the cul de sac. Neither ovary was identifiable, obscured by bowel, with no adnexal mass seen. IMPRESSION: Single 7 week 6 day IUP with an PAUL of 04/15/2020. heart rate is 165 BPM with no intrauterine hematoma, mass or suspicious finding. Neither ovary was identifiable but no adnexal seen.
[2019-09-03 19:55] LABS: Urine Bacteria 20-50 /HPF (<20); Urine Culture Reflex Order REFLEXED; Urine Mucus 3+ /HPF (NONE SEEN); Urine RBC <5 /HPF (NONE SEEN)
[2019-09-03 20:38] VITALS: TEMP 98
[2019-09-03 20:39] VITALS: O2SAT 100
[2019-09-03 20:43] VITALS: BP 114/71
== END 2019-09-03 20:22 | disposition home or self-care (01) ==
LOC: ER 15:17
DX: O23.41 Unspecified infection of urinary tract in pregnancy, first trimester (principal); Z3A.01 Less than 8 weeks gestation of pregnancy
CPT/HCPCS: 36415; 76817; 80053; 81003; 81015; 81025; 84702; 85025; 86900; 86901; 87086; 87088; 96361; 96374; 99284; J7030

== ENCOUNTER 2021-07-20 06:19 | Emergency (ER) | payer OTHER ==
--- NOTE | 2021-07-20 07:09 | RAD REPORT ---
EXAM DESCRIPTION: RAD - Chest Single View - 07/20/2021 6:49 am CLINICAL HISTORY: Cough;Congestion COMPARISON: Chest Pa And Lat (2 Views) dated 10/31/2018 FINDINGS: Lines: None. Lungs: No evidence of edema or pneumonia. Pleural: No significant pleural effusions or pneumothorax. Cardiac: The heart size is within normal limits. Bones: No acute fractures. Other: IMPRESSION: No acute cardiopulmonary disease.
--- NOTE | 2021-07-20 07:54 | ER ---
Nurse's Notes [facility] Name: Angel Leonardo Age: 26 yrs Sex: Female : 1995 Arrival Date: 07/20/2021 Time: 06:24 Bed 12 Private MD: Diagnosis: Acute upper respiratory infection, unspecified Presentation: 07/20 06:32 Chief complaint: Patient states: Woke up with a heaviness in her chest this AM. Has wg been coughing and sneezing a lot since yesterday. Family member has a URI. Denies fever. Took Dayquil 0530 this AM. Coronavirus screen: Vaccine status: Patient reports receiving the 2nd dose of the covid vaccine. Date July 13, 2021 [employer]. Coronavirus screen: Client presents with at least one sign or symptom that may indicate coronavirus-19. Ebola Screen: Patient negative for fever greater than or equal to 101.5 degrees Fahrenheit, and additional compatible Ebola Virus Disease symptoms Patient denies exposure to infectious person. Patient denies travel to an Ebola-affected area in the 21 days before illness onset. Initial Sepsis Screen: Does the patient meet any 2 criteria? No. Patient's initial sepsis screen is negative. Does the patient have a suspected source of infection? No. Patient's initial sepsis screen is negative. Risk Assessment: Do you want to hurt yourself or someone else? Patient reports no desire to harm self or others. Onset of symptoms was July 19, 2021. 06:32 Method Of Arrival: Ambulatory 06:32 Acuity: AURELIO 3 Triage Assessment: 06:35 General: Appears uncomfortable, well groomed, Behavior is calm, cooperative, wg appropriate for age. Pain: Complains of pain in chest Pain does not radiate. Respiratory: Reports shortness of breath cough that is Onset: The symptoms/episode began/occurred yesterday, the patient has mild shortness of breath. 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 - Social history:: Smoking status: Patient denies any tobacco usage or history of. Screenin:27 Abuse screen: Denies threats or abuse. Nutritional screening: No deficits noted. oh Tuberculosis screening: No symptoms or risk factors identified. Fall Risk None identified. Assessment: 07:27 Respiratory: Reports shortness of breath cough that is yellow sputum. oh 07:28 Respiratory: Airway is patent Respiratory effort is even. oh 07:31 Cardiovascular: Rhythm is sinus rhythm with sinus arrythmia. oh 07:31 Reassessment: receive pt from previous shift, pt awaiting xray results. oh Vital Signs: 06:32 BP 121 / 85; Pulse 86; Resp 18; Temp 96.4; Pulse Ox 99% on R/A; Weight 72.57 kg; Height wg 5 ft. 7 in. (170.18 cm); Pain 5/10; 07:33 BP 121 / 78; Pulse 75; Resp 17; Temp 98.6(O); Pulse Ox 100% on R/A; oh 06:32 Body Mass Index 25.06 (72.57 kg, 170.18 cm) ED Course: 06:24 Patient arrived in ED. 06:34 Lisa Albert FNP-C is PHCP. kb 06:34 Sergio Samuel MD is Attending Physician. kb 06:35 Triage completed. wg 06:35 Arm band placed on right wrist. wg 06:49 Chest Single View XRAY In Process Unspecified. EDMS 07:01 Ivy Vasquez, [place] is Primary Nurse. oh 07:29 Bed in low position. Call light in reach. oh 07:32 Pulse ox on. NIBP on. oh 07:39 Attending Physician role handed off by Sergio Samuel MD rn 07:39 Lion Sarmiento MD is Attending Physician. rn 07:57 No provider procedures requiring assistance completed. oh 07:58 Patient did not have IV access during this emergency room visit. oh Administered Medications: No medications were administered Outcome: 07:53 Discharge ordered by . kb 07:58 Discharged to home ambulatory. oh 07:58 Condition: stable 07:58 Discharge instructions given to patient. 08:00 Patient left the ED. oh Signatures: Dispatcher [employer] EDMS Lisa Albert FNP-C FNP-Lion Novak MD MD rn Marsh, Wendy Ramon Sloan RN Christina, [place], RN RN oh Corrections: (The following items were deleted from the chart) 07:30 06:35 PMHx: None; wg oh 07:31 07:27 Respiratory: Reports shortness of breath cough that is oh oh 07:36 07:31 Cardiovascular: Rhythm is oh oh 07:59 07:33 BP 121 / 78; Pulse 75bpm; Resp 17bpm; Pulse Ox 100% RA; oh oh
--- NOTE | 2021-07-20 07:54 | EDPHYS ---
Physician Documentation [facility] Name: Angel Leonardo Age: 26 yrs Sex: Female : 1995 Arrival Date: 07/20/2021 Time: 06:24 Bed 12 Private MD: ED Physician Lion aSrmiento HPI: 07/20 06:52 This 26 yrs old Female presents to ER via Ambulatory with complaints of kb Breathing Difficulty. 06:52 The patient or guardian reports cough, that is intermittent, described as moderate, kb difficulty breathing. Onset: The symptoms/episode began/occurred yesterday. Severity of symptoms: At their worst the symptoms were mild, in the emergency department the symptoms are unchanged. Modifying factors: The symptoms are alleviated by nothing, the symptoms are aggravated by nothing. Associated signs and symptoms: Pertinent positives: chest pain. The patient has not experienced similar symptoms in the past. The patient has not recently seen a physician. Pt reports her was recently diagnosed with a URI. States she started sneezing and coughing a lot yesterday, this morning woke up with chest heaviness and shortness of breath. 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 - Social history:: Smoking status: Patient denies any tobacco usage or history of. ROS: 06:52 Constitutional: Negative for fever, chills, and weight loss. kb 06:52 ENT: Positive for "sneezing a lot". 06:52 Cardiovascular: Positive for heaviness. 06:52 Respiratory: Positive for cough, shortness of breath, Negative for dyspnea on exertion, hemoptysis, orthopnea, pleurisy, sputum production, wheezing. 06:52 All other systems are negative. Exam: 06:52 Constitutional: This is a well developed, well nourished patient who is awake, alert, kb and in no acute distress. Head/Face: Normocephalic, atraumatic. ENT: Moist Mucous membranes Cardiovascular: Regular rate and rhythm with a normal S1 and S2. No gallops, murmurs, or rubs. No pulse deficits. Respiratory: Respirations even and unlabored. No increased work of breathing, no retractions or nasal flaring. Abdomen/GI: Soft, non-tender. No distention Skin: Warm, dry with normal turgor. Normal color. MS/ Extremity: Pulses equal, no cyanosis. Neurovascular intact. Full, normal range of motion. Neuro: Awake and alert, GCS 15, oriented to person, place, time, and situation. Moves all extremities. Normal gait. Psych: Awake, alert, with orientation to person, place and time. Behavior, mood, and affect are within normal limits. 06:53 ECG was reviewed by the Attending Physician. kb Vital Signs: 06:32 BP 121 / 85; Pulse 86; Resp 18; Temp 96.4; Pulse Ox 99% on R/A; Weight 72.57 kg; Height wg 5 ft. 7 in. (170.18 cm); Pain 5/10; 07:33 BP 121 / 78; Pulse 75; Resp 17; Temp 98.6(O); Pulse Ox 100% on R/A; oh 06:32 Body Mass Index 25.06 (72.57 kg, 170.18 cm) MDM: 06:34 Patient medically screened. kb 06:51 Data reviewed: vital signs, nurses notes. Data interpreted: Pulse oximetry: on room air kb is 99 %. Interpretation: normal. 07:52 Counseling: I had a detailed discussion with the patient and/or guardian regarding: the kb historical points, exam findings, and any diagnostic results supporting the discharge/admit diagnosis, lab results, radiology results, the need for outpatient follow up, a family practitioner, to return to the emergency department if symptoms worsen or persist or if there are any questions or concerns that arise at home. 07/20 06:35 Order name: Flu; Complete Time: 07:30 kb 07/20 06:35 Order name: Chest Single View XRAY; Complete Time: 07:10 kb 07/20 06:35 Order name: EKG; Complete Time: 06:36 kb 07/20 06:35 Order name: EKG - Nurse/Tech; Complete Time: 06:56 kb 07/20 07:46 Order name: SARS-COV-2 RT PCR; Complete Time: 07:52 EDMS EC:53 Rate is 76 beats/min. Rhythm is regular. QRS [place] is Normal. [place] interval is normal at kb 136 msec. QRS interval is normal at 86 msec. QT interval is normal at 360 msec. Administered Medications: No medications were administered Disposition: 08:17 Co-signature as Attending Physician, Lion Sarmiento MD. rn Disposition Summary: 07/20/21 07:53 Discharge Ordered Location: Home kb Condition: Stable kb Diagnosis - Acute upper respiratory infection, unspecified kb Followup: kb - With: Emergency Department - When: As needed - Reason: Worsening of condition Followup: kb - With: Private Physician - When: 2 - 3 days - Reason: Recheck today's complaints, Continuance of care, Re-evaluation by your physician Discharge Instructions: - Discharge Summary Sheet kb - Upper Respiratory Infection, Adult, [id number] kb - Viral Respiratory Infection, [id number] kb Forms: - Medication Reconciliation Form kb - Thank You Letter kb - Antibiotic Education kb - Prescription Opioid Use kb Signatures: Dispatcher [employer] EDMS Lisa Albert, DESKTOP MANAGER-C DESKTOP MANAGER-[place] Lion Sarmiento MD MD rn Ramon Sloan, RN Ivy Mcpherson RN RN oh Corrections: (The following items were deleted from the chart) 06:52 06:36 CORONAVIRUS+LAB.BRZ ordered. EDKS EDMS 07:30 06:35 PMHx: None; ej oh
[2021-07-20 08:07] VITALS: BP 121/78; TEMP 98.6; O2SAT 100
--- NOTE | 2021-07-20 18:07 | EKG ---
Test Date: 2021-07-20 Test Time: 06:50:17 Armor Senior Sergeant: XAVIER MEASUREMENT RESULTS: Intervals: Rate: 0 [place]: QRSD: 0 QT: 0 QTc: 0 [place]: P: [place]: QRS: 0 T: 0 INTERPRETIVE STATEMENTS: No QRS complexes found, no ECG analysis possible Compared to ECG 10/31/2018 15:59:45 Sinus rhythm no longer present Electronically Signed On 07-20-21 18:05:33 CDT by Gilmer Diaz
--- NOTE | 2021-07-21 16:47 | EKG ---
Test Date: 2021-07-20 Test Time: 06:47:29 Transition Mgr: XAVIER MEASUREMENT RESULTS: Intervals: Rate: 76 NE: 136 QRSD: 86 QT: 360 QTc: 405 [place]: P: 47 NE: 136 QRS: 79 T: 45 INTERPRETIVE STATEMENTS: Normal sinus rhythm with sinus arrhythmia Normal ECG Compared to ECG 10/31/2018 15:59:45 No significant changes Electronically Signed On 07-21-21 16:43:09 CDT by Gilmer Diaz
== END 2021-07-20 08:00 | disposition home or self-care (01) ==
LOC: ER 06:19
DX: J06.9 Acute upper respiratory infection, unspecified (principal); Z20.822 Contact with and (suspected) exposure to COVID-19
CPT/HCPCS: 93005 ×2; 87804 ×2; 71045; 99284; U0003

== ENCOUNTER 2021-12-08 04:16 | Emergency (ER) | payer OTHER ==
--- OUTSIDE RECORDS SUMMARY | 2021-12-08 04:18 | XMS REPORT | Continuity of Care Document ---
:1995 Author Organization [facility] t Address [address] [place] [address] Care Team Providers Name Role Phone Rayshawn ARSHAD C Primary Care Physician Nancy SWAIN, N Attending Clinician Carrillo CRUZ Attending Clinician Unavailable Payers Payer Name Policy Type Policy Number Effective Date Expiration Date S ource Advance Directives Directive Decision Effective Termination Comments Source Date Date Healthcare Agents on N/A Univ ersity FileNameRelationshipHealthcare of [place] Agent Medical RelationshipCommunicationDavid Branch NunezOtherHealth Care [phone] (Mobile) Meena CardenasOtherFirst Alternate [facility] [phone] (Mobile) Problems Condition Condition Condition Status Onset Resolution Last Treating Co mments Source Name Details Category Date Date Treatment Clinician Date Need for Need for Disease Active 2019-0 Unive rs HPV HPV 8-03 ity of vaccine vaccine 00:00: [place] 00 Medical Branch History of History of Disease Active 2018-10 Overview : Univers lupus lupus 2-20 Formattin ity of 00:00: g of this [place] 00 note Medical might be Branch different from the original. Reports dx in 2016, but did not follow up Allergies, Adverse Reactions, Alerts Allergy Allergy Status Severity Reaction(s) Onset Inactive Treating Comm ents Source Name Type Date Date Clinician NO KNOWN Drug Active Univers ALLERGIE Class ity of S [facility] Social History Social Habit Start Date Stop Date Quantity Comments Source Exposure to Not sure University SARS-CoV-2 [place] [facility] (event) Branch History SDOH University o f Alcohol Frequency [facility] edical Branch History SDOH University o f Alcohol Std [place] [facility] Drinks Branch History SDOH University o f Alcohol Binge [place] [facility] Branch Alcohol intake 2021-10-05 2021-10-05 Current drinker of Un iversity of 00:00:00 00:00:00 alcohol (finding) [facility] edical Branch Alcohol Comment 2017-02-22 2017-02-22 occasionally Univers ity of 00:00:00 00:00:00 [facility] Tobacco use and 2017-02-22 2017-02-22 Never used Universit y of exposure 00:00:00 00:00:00 [facility] Sex Ass[birth year] Universit y of 00:00:00 00:00:00 [facility] Smoking Status Start Date Stop Date Source Never smoker [facility] Medications Ordered Filled Start Stop Current Ordering Indication Dosage Frequency Signature Comments Components Source Medication Medication Date Date Medication? Clinician (SIG) Name Name estradioL 2 2020-10- Yes [id number] 2mg Take 1 Univers mg tablet 12-06 tablet by ity of 00:00: 05:59 mouth [place] 00 :00 daily for Medical 21 days. Branch estradioL 2 2020-10- Yes [id number] 2mg Take 1 Univers mg tablet 12-06 tablet by ity of 00:00: 05:59 mouth [place] 00 :00 daily for Medical 21 days. Branch estradioL 2 2020-10- Yes [id number] 2mg Take 1 Univers mg tablet 12-06 tablet by ity of 00:00: 05:59 mouth [place] 00 :00 daily for Medical 21 days. Branch medroxyPROG 2021- No [id number] 150mg Univers ESTERone 07-13 ity of (DEPO-PROVE 19:45: 19:44 [place] RA) 00 :00 Medical injection Branch 150 mg medroxyPROG 2021- No [id number] 150mg 150 mg, Univers ESTERone 07-13 Intramuscu ity of (DEPO-PROVE 19:45: 19:44 lar, [place] RA) 00 :00 [id number], Medical injection 4 doses, Branch 150 mg First dose on Mon07/13/21 at 1445, Last dose on Mon03/22/22 at 1445, Routine medroxyPROG 2020-0 2021- No [id number] 150mg Univers ESTERone 07-13 ity of (DEPO-PROVE 19:45: 19:44 [place] RA) 00 :00 Medical injection Branch 150 mg medroxyPROG 2020-0 2- No [id number] 150mg 150 mg, Univers ESTERone 07-13 Intramuscu ity of (DEPO-PROVE 19:45: 19:44 [facility], [place] RA) 00 :00 [id number], Medical injection 4 doses, Branch 150 mg First dose on Mon07/13/21 at 1445, Last dose on Mon03/22/22 at 1445, Routine medroxyPROG 2020-0 2- No [id number] 150mg Univers ESTERone 07-13 ity of (DEPO-PROVE 19:45: 19:[address] [facility]) 00 :00 Medical injection Branch 150 mg Immunizations Ordered Immunization Filled Immunization Date Status Commen ts Source Name Name [facility] 2021-10-05 Completed University of 00:00:00 [facility] HPV9 2021-10-05 Completed University of 00:00:00 [facility] HPV9 2021-10-05 Completed University of 00:00:00 [facility] Influenza Virus 2020-08-26 Completed Universit y of Vaccine Quad .5 mL IM 00:00:00 [facility] as Medical 6+ MO Branch Influenza Virus 2020-08-26 Completed Universit y of Vaccine Quad .5 mL IM 00:00:00 Daniel as Medical 6+ MO Branch Influenza Virus 2020-08-26 Completed Universit y of Vaccine Quad .5 mL IM 00:00:00 Daniel as Medical 6+ MO Branch HPV9 2020-05-18 Completed University of 00:00:00 [facility] HPV9 2020-05-18 Completed University of 00:00:00 [facility] HPV9 2020-05-18 Completed University of 00:00:00 [facility] HPV9 2020-04-06 Completed University of 00:00:00 [facility] MMR 2020-04-06 Completed University of 00:00: [place] [facility] HPV9 2020-04-06 Completed University of 00:00:00 [place] [facility] MMR 2020-04-06 Completed University of 00:00:00 [place] [facility] HPV9 2020-04-06 Completed University of 00:00:00 [place] [facility] MMR 2020-04-06 Completed University of 00:00:[address] [facility] Branch TDAP 2020-01-31 Completed University of 00:00: [place] [facility] TDAP 2020-01-31 Completed University of 00:00:00 [place] [facility] TDAP 2020-01-31 Completed University of 00:00:00 [facility] Influenza Virus 2019-10-04 Completed Universit y of Vaccine Quad .5 mL IM 00:00:00 [facility] as Medical 6+ MO Branch Influenza Virus 2019-10-04 Completed Universit y of Vaccine Quad .5 mL IM 00:00:00 [facility] as Medical 6+ MO Branch Influenza Virus 2019-10-04 Completed Universit y of Vaccine Quad .5 mL IM 00:00:00 [facility] as Medical 6+ MO Branch Meningococcal 2010-05-25 Completed University of Polysaccharide 00:00:00 [place] [facility]i teena (groups A, C, Y and Branc h W-135) conjugate vaccine (MCV4P) Meningococcal 2010-05-25 Completed University of Polysaccharide 00:00:00 [place] Medi teena (groups A, C, Y and Branc h W-135) conjugate vaccine (MCV4P) Meningococcal 2010-05-25 Completed University of Polysaccharide 00:00:00 [place] Medi teena (groups A, C, Y and Branc h W-135) conjugate vaccine (MCV4P) Vital Signs Vital Name Observation Time Observation Value Comments Source Systolic blood 2021-10-05 20:28:00 125 mm[Hg] Univer sity of pressure [facility] Diastolic blood 2021-10-05 20:28:00 84 mm[Hg] Unive rsity of pressure [facility] Heart rate 2021-10-05 20:28:00 90 /[facility] Body temperature 2021-10-05 20:28:00 36.28 [facility] 2021-10-05 20:28:00 16 /min [facility] Body height 2021-10-05 20:28:00 170.2 cm [facility] Body weight 2021-10-05 20:28:00 73.143 kg [facility] BMI 2021-10-05 20:28:00 25.26 kg/m2 [facility] Procedures Procedure Date / Time Performed Performing [facility]ician [facility] 9 (HPV 9V) 2021-10-05 20:40:47 Nya Cruz [facility] Encounters Start End Encounter Admission Attending Care Care Encounter Source Date/Time Date/Time Type Type Clinicians Facility Department ID 2021-10-23 2021-10-23 Refill Nancy [facility] [id number] Univers 00:00:00 00:00:00 Nya Vizcaino STERILIZATION SPECIALIST [id number] it y of REGIONAL [id number] Daniel as MATERNAL [id number] [facility] & [address] 2021-10-05 2021-10-05 Office Nancy VAAYESHA [id number] [facility] 14:30:00 14:49:24 Visit Nya Vizcaino STERILIZATION SPECIALIST [id number] it y of REGIONAL [id number] Daniel as MATERNAL [id number] [facility] & [address] 2021-10-05 2021-10-05 Outpatient R NANCY VAAYESHA [facility] [id number] Univers 14:30:00 14:49:24 YNA tello [place] [facility] Results This patient has no known results.
[2021-12-08 05:22] LABS: SARS-COV-2 RT PCR NEGATIVE (NEGATIVE)
--- NOTE | 2021-12-08 06:18 | EDPHYS ---
Physician Documentation [facility] Name: Angel Leonardo Age: 26 yrs Sex: Female : 1995 Arrival Date: 12/08/2021 Time: 04:20 Bed 14 Private MD: ED Physician Elliott Mart HPI: 12/08 05:05 This 26 yrs old Female presents to ER via Ambulatory with complaints of Cough, mh7 Congestion. 05:05 The patient or guardian reports cough, that is intermittent, described as mild, with mh7 productive sputum, that is white, Nasal congestion, runny nose, sore throat. Onset: The symptoms/episode began/occurred 2 day(s) ago. Severity of symptoms: At their worst the symptoms were moderate, yesterday, in the emergency department the symptoms have improved, moderately. Modifying factors: The symptoms are alleviated by nothing, the symptoms are aggravated by nothing. Associated signs and symptoms: Pertinent positives: rhinorrhea, sore throat, Pertinent negatives: chest pain, diarrhea, ear ache, fever, nausea, vomiting. 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 - Social history:: Smoking status: Patient denies any tobacco usage or history of. ROS: 05:05 Constitutional: Negative for fever, chills, and weight loss, Eyes: Negative for injury, mh7 pain, redness, and discharge, Neck: Negative for injury, pain, and swelling, Cardiovascular: Negative for chest pain, palpitations, and edema, Abdomen/GI: Negative for abdominal pain, nausea, vomiting, diarrhea, and constipation, Back: Negative for injury and pain, : Negative for injury, bleeding, discharge, and swelling, MS/Extremity: Negative for injury and deformity, Skin: Negative for injury, rash, and discoloration, Neuro: Negative for headache, weakness, numbness, tingling, and seizure, Psych: Negative for depression, anxiety, suicide ideation, homicidal ideation, and hallucinations, Allergy/Immunology: Negative for hives, rash, and allergies, Endocrine: Negative for neck swelling, polydipsia, polyuria, polyphagia, and marked weight changes, Hematologic/Lymphatic: Negative for swollen nodes, abnormal bleeding, and unusual bruising. Exam: 05:05 Constitutional: This is a well developed, well nourished patient who is awake, alert, mh7 and in no acute distress. Head/Face: Normocephalic, atraumatic. Eyes: Pupils equal round and reactive to light, extra-ocular motions intact. Lids and lashes normal. Conjunctiva and sclera are non-icteric and not injected. Cornea within normal limits. Periorbital areas with no swelling, redness, or edema. ENT: Nares patent. No nasal discharge, no septal abnormalities noted. Tympanic membranes are normal and external auditory canals are clear. Oropharynx with no redness, swelling, or masses, exudates, or evidence of obstruction, uvula midline. Mucous membranes moist. Neck: Trachea midline, no thyromegaly or masses palpated, and no cervical lymphadenopathy. Supple, full range of motion without nuchal rigidity, or vertebral point tenderness. No Meningismus. Chest/axilla: Normal chest wall appearance and motion. Nontender with no deformity. No lesions are appreciated. Cardiovascular: Regular rate and rhythm with a normal S1 and S2. No gallops, murmurs, or rubs. Normal PMI, no JVD. No pulse deficits. Respiratory: Lungs have equal breath sounds bilaterally, clear to auscultation and percussion. No rales, rhonchi or wheezes noted. No increased work of breathing, no retractions or nasal flaring. Abdomen/GI: Soft, non-tender, with normal bowel sounds. No distension or tympany. No guarding or rebound. No evidence of tenderness throughout. Back: No spinal tenderness. No costovertebral tenderness. Full range of motion. Skin: Warm, dry with normal turgor. Normal color with no rashes, no lesions, and no evidence of cellulitis. MS/ Extremity: Pulses equal, no cyanosis. Neurovascular intact. Full, normal range of motion. Neuro: Awake and alert, GCS 15, oriented to person, place, time, and situation. Cranial nerves II-XII grossly intact. Motor strength 5/5 in all extremities. Sensory grossly intact. Cerebellar exam normal. Normal gait. Psych: Awake, alert, with orientation to person, place and time. Behavior, mood, and affect are within normal limits. Vital Signs: 04:34 BP 115 / 76; Pulse 77; Resp 18; Temp 98.2; Pulse Ox 100% ; Weight 72.57 kg; Height 5 al4 ft. 7 in. (170.18 cm); Pain 5/10; 05:11 BP 110 / 69 RA Supine (auto/lg); Pulse 75 MON; Resp 18 S; Pulse Ox 100% on R/A; tk1 05:11 Pain 5/10; tk1 06:00 BP 105 / 69 RA Supine (auto/reg); Pulse 69 MON; Resp 18 S; Temp 98(O); Pulse Ox 100% ; tk1 04:34 Body Mass Index 25.06 (72.57 kg, 170.18 cm) al4 MDM: 06:15 Differential Diagnosis: Bronchitis Influenza Upper Respiratory Infection Pharyngitis mh7 Allergic Rhinitis Viral Syndrome Pneumonia. Data reviewed: vital signs, nurses notes, old medical records, lab test result(s), Flu: negative Covid negative, strep negative. Data interpreted: Pulse oximetry: on room air is 100 %. Interpretation: normal. Counseling: I had a detailed discussion with the patient and/or guardian regarding: the historical points, exam findings, and any diagnostic results supporting the discharge/admit diagnosis, lab results, radiology results, the need for outpatient follow up, to return to the emergency department if symptoms worsen or persist or if there are any questions or concerns that arise at home. Response to treatment: the patient's symptoms have markedly improved after treatment. 06:17 Patient medically screened. [facility] 12/08 04:29 Order name: Strep; Complete Time: 06:10 mw2 12/08 04:29 Order name: COVID-19/FLU A+B (Document "Date of Onset" if Symptomatic); Complete Time: mw2 06:10 12/08 04:56 Order name: Chest Pa And Lat (2 Views) XRAY tk1 12/08 05:22 Order name: Throat Culture EDMS Administered Medications: No medications were administered Disposition Summary: 12/08/21 06:17 Discharge Ordered Location: Home [facility] Problem: new [facility] Symptoms: have improved [facility] Condition: Stable [facility] Diagnosis - Viral syndrome [facility] Followup: [facility] - With: Private Physician - When: 1 - 2 days - Reason: Worsening of condition, Recheck today's complaints, Continuance of care, Re-evaluation by your physician Discharge Instructions: - Discharge Summary Sheet [facility] - Viral Respiratory Infection, [id number] [facility] Forms: - Medication Reconciliation Form [facility] - Thank You Letter [facility] - Antibiotic Education [facility] - Prescription Opioid Use [facility] Prescriptions: - albuterol sulfate 90 mcg/actuation Inhalation HFA aerosol inhaler - inhale 1 puff by INHALATION route every 6 hours As needed; 1 Inhaler; Refills: [facility] 0, Product Selection Permitted - Tessalon Perles 100 mg Oral Capsule - take 1 capsule by ORAL route every 8 hours As needed; 15 capsule; Refills: 0, mh7 Product Selection Permitted Signatures: Dispatcher [employer] Elliott Jarquin MD MD [facility] Bk Polanco
--- NOTE | 2021-12-08 06:18 | ER ---
Nurse's Notes [facility] Name: Angel Leonardo Age: 26 yrs Sex: Female : 1995 Arrival Date: 12/08/2021 Time: 04:20 Bed 14 Private MD: Diagnosis: Viral syndrome Presentation: 12/08 04:34 Chief complaint: Patient states: nasal and chest congestion that started one day ago. al4 Coronavirus screen: Vaccine status: Patient reports receiving the 2nd dose of the covid vaccine. [employer]. Ebola Screen: No symptoms or risks identified at this time. Initial Sepsis Screen: Does the patient meet any 2 criteria? No. Patient's initial sepsis screen is negative. Does the patient have a suspected source of infection? No. Patient's initial sepsis screen is negative. Risk Assessment: Do you want to hurt yourself or someone else? Patient reports no desire to harm self or others. Onset of symptoms was December 07, 2021. 04:34 Method Of Arrival: Ambulatory al4 04:34 Acuity: AURELIO 4 al4 Triage Assessment: 04:36 General: Appears in no apparent distress. comfortable, Behavior is calm, cooperative, al4 appropriate for age. Neuro: Level of Consciousness is awake, alert, obeys commands, Oriented to person, place, time, situation. Cardiovascular: Capillary refill < 3 seconds Patient's skin is warm and dry. Respiratory: Airway is patent Respiratory effort is unlabored, Respiratory pattern is regular. Musculoskeletal: Range of motion: intact in all extremities. 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 - Social history:: Smoking status: Patient denies any tobacco usage or history of. Screenin:11 Abuse screen: Denies threats or abuse. Denies injuries from another. Nutritional tk1 screening: No deficits noted. Tuberculosis screening: No symptoms or risk factors identified. Fall Risk None identified. Assessment: 05:08 General: Appears in no apparent distress. well groomed, well developed, well nourished, tk1 Behavior is calm, cooperative, appropriate for age. 05:08 Pain:. Pain: Complains of pain in throat Pain does not radiate. Pain currently is 5 out tk1 of 10 on a pain scale. Quality of pain is described as burning, Pain began 1 day ago. Is intermittent. Neuro: Level of Consciousness is awake, alert, obeys commands, Oriented to person, place, time, situation, Appropriate for age Collection Analyst are equal bilaterally Moves all extremities. Gait is steady, Speech is normal, Facial symmetry appears normal, Pupils are PERRLA. Cardiovascular: Capillary refill < 3 seconds is brisk in bilateral fingers Clubbing of nail beds is absent. Respiratory: Reports cough that is non-productive, persistent Airway is patent Trachea midline Respiratory effort is even, unlabored, Breath sounds are clear bilaterally. the patient has moderate shortness of breath. GI: No deficits noted. No signs and/or symptoms were reported involving the gastrointestinal system. : No deficits noted. No signs and/or symptoms were reported regarding the genitourinary system. EENT: Throat is reddened Reports nasal congestion since 12/05/21 nasal discharge that is yellow. Derm: No deficits noted. No signs and/or symptoms reported regarding the dermatologic system. Musculoskeletal: No deficits noted. No signs and/or symptoms reported regarding the musculoskeletal system. 06:00 Reassessment: No changes from previously documented assessment. Patient and/or family tk1 updated on plan of care and expected duration. Pain level reassessed. Patient is alert, oriented x 3, equal unlabored respirations, skin warm/dry/pink. Pain: Complains of pain in throat Pain does not radiate. Pain currently is 3 out of 10 on a pain scale. 06:00 Reassessment: D/C per MD order. Discharge/Prescription instructions given to patient. tk1 Verbalized understanding. Vital Signs: 04:34 BP 115 / 76; Pulse 77; Resp 18; Temp 98.2; Pulse Ox 100% ; Weight 72.57 kg; Height 5 al4 ft. 7 in. (170.18 cm); Pain 5/10; 05:11 BP 110 / 69 RA Supine (auto/lg); Pulse 75 MON; Resp 18 S; Pulse Ox 100% on R/A; tk1 05:11 Pain 5/10; tk1 06:00 BP 105 / 69 RA Supine (auto/reg); Pulse 69 MON; Resp 18 S; Temp 98(O); Pulse Ox 100% ; tk1 04:34 Body Mass Index 25.06 (72.57 kg, 170.18 cm) al4 ED Course: 04:20 Patient arrived in ED. ja2 04:32 COVID-19/FLU A+B (Document "Date of Onset" if Symptomatic) Sent. al4 04:32 Strep Sent. al4 04:36 Triage completed. al4 04:36 Elliott Mart MD is Attending Physician. mh7 04:36 Arm band placed on. al4 04:53 Mita Mendoza is Primary Nurse. tk1 05:11 No provider procedures requiring assistance completed. Patient did not have IV access tk1 during this emergency room visit. 05:11 Patient has correct armband on for positive identification. Bed in low position. Call tk1 light in reach. Side rails up X2. Warm blanket given. 05:14 Chest Pa And Lat (2 Views) XRAY In Process Unspecified. EDMS 05:36 Throat Culture Sent. tk1 Administered Medications: No medications were administered Outcome: 06:00 Discharged to home ambulatory. tk1 06:00 Condition: stable 06:00 Discharge instructions given to patient, Instructed on discharge instructions, follow up and referral plans. medication usage, Demonstrated understanding of instructions, follow-up care, medications, Prescriptions given X 3. 06:17 Discharge ordered by . 7 06:28 Patient left the ED. tk1 Signatures: Dispatcher [employer] Elliott Jarquin MD MD 7 Brenda Nayak Alexis al Mita Mendoza tk1
[2021-12-08 06:36] VITALS: O2SAT 100
[2021-12-08 06:39] VITALS: BP 105/69; TEMP 98
--- NOTE | 2021-12-08 07:13 | RAD REPORT ---
EXAM DESCRIPTION: RAD - Chest Pa And Lat (2 Views) - 12/08/2021 5:14 am CLINICAL HISTORY: COUGH COMPARISON: Portable 07/20/2021 TECHNIQUE: Frontal and lateral views of the chest were obtained. FINDINGS: The lungs are clear. Heart size is normal and central vasculature is within normal limit s. No pleural effusion or pneumothorax seen. No acute bony finding noted. No aortic abnormality. No significant change from comparison. IMPRESSION: No acute cardiopulmonary process.
== END 2021-12-08 06:28 | disposition home or self-care (01) ==
LOC: ER 04:16
DX: B34.9 Viral infection, unspecified (principal); Z20.822 Contact with and (suspected) exposure to COVID-19
CPT/HCPCS: 87070; 87081; 0240U; 71046; 99283

== ENCOUNTER 2022-05-30 09:36 | Emergency (ER) | payer OTHER ==
--- OUTSIDE RECORDS SUMMARY | 2022-05-30 09:39 | XMS REPORT | Continuity of Care Document ---
:1995 Author Organization [facility] t Address [address] [place] [address] Care Team Providers Name Role Phone Elyse Alfonso Primary Care Physician [phone] Elyse Alfonso Attending Clinician [phone] Payers Payer Name Policy Type Policy Number Effective Date Expiration Date S ource Problems Condition Condition Condition Status Onset Resolution Last Treating Co mments Source Name Details Category Date Date Treatment Clinician Date Need for Need for Disease Active Unive rs HPV HPV 8-03 ity of vaccine vaccine 00:00: [place] 00 Medical Branch History of History of Disease Active 2018-10 Overview : Univers lupus lupus 2-20 Formattin ity of 00:00: g of this [place] 00 note Medical might be Branch different from the original. Reports dx in 2016, but did not follow up Allergies, Adverse Reactions, Alerts This patient has no known allergies or adverse reactions. Social History Social Habit Start Date Stop Date Quantity Comments Source History SDOH University o f Alcohol Frequency [place] [facility] History SDOH University o f Alcohol Std [place] [facility] Drinks [facility] History SDMO University o f Alcohol Binge [place] [facility] Exposure to 2022-02-12 2022-02-22 Not sure University of SARS-CoV-2 00:00:00 15:04:00 [place] [facility] (event) Branch Alcohol intake 2021-10-05 2021-10-05 Current drinker of Un iversity of 00:00:00 00:00:00 alcohol (finding) [facility] edical [place] Alcohol Comment 2017-02-22 2017-02-22 occasionally Univers ity of 00:00:00 00:00:00 [facility] Tobacco use and 2017-02-22 2017-02-22 Never used Universit y of exposure 00:00:00 00:00:00 [facility] Sex Ass[birth year] Universit y of 00:00:00 00:00:00 [facility] Smoking Status Start Date Stop Date Source Never smoker [facility] Medications Ordered Filled Start Stop Current Ordering Indication Dosage Frequency Signature Comments Components Source Medication Medication Date Date Medication? Clinician (SIG) Name Name fluconazole 2021- No [id number] 150mg Take 1 Univers (DIFLUCAN) 02-22 tablet by ity of 150 mg 00:00[place] 04:59 [place]00 now for 1 Medical dose. Branch medroxyPROG 2021- No [id number] 150mg Univers ESTERone 07-13 ity of (DEPO-PROVE 19:45: 19:44 [facility]) 00 :00 Medical injection Branch 150 mg Immunizations Ordered Immunization Filled Immunization Date Status Commen ts Source Name Name HPV9 2021-10-05 Completed University of 00:00:00 [facility] Influenza Virus 2020-08-26 Completed Universit y of Vaccine Quad .5 mL IM 00:00:00 [facility] as Medical 6+ [place] Branch HPV9 2020-05-18 Completed University of 00:00:00 [facility] HPV9 2020-04-06 Completed University of 00:00:00 [facility] MMR 2020-04-06 Completed University of 00:00:00 [facility] TDAP 2020-01-31 Completed University of 00:00:00 [facility] Influenza Virus 2019-10-04 Completed Universit y of Vaccine Quad .5 mL IM 00:00:00 [place] [facility] Medical 6+ [place] Branch Meningococcal 2010-05-25 Completed University of Polysaccharide 00:00:00 [facility] teena (groups A, C, Y and Branc h W-135) conjugate vaccine (MCV4P) Vital Signs Vital Name Observation Time Observation Value Comments Source Systolic blood 2022-02-22 20:03:00 113 mm[Hg] Univer sity of pressure [facility] Diastolic blood 2022-02-22 20:03:00 64 mm[Hg] Unive rsity of pressure [facility] Heart rate 2022-02-22 20:03:00 74 /min [facility] Body temperature 2022-02-22 20:03:00 36.78 Janneth [facility] Respiratory rate 2022-02-22 20:03:00 20 /min [facility] Body height 2022-02-22 20:03:00 170.2 cm [facility] Body weight 2022-02-22 20:03:00 79.198 kg [facility] BMI 2022-02-22 20:03:00 27.35 kg/m2 [facility] Procedures Procedure Date / Time Performed Performing Clinician Sourc e GC & CHLAMYDIA 2022-02-22 20:57:00 Elyse Tabares [facility] AMPLIFIED ASSAY [facility] GALV ONLY - VAGINAL 2022-02-22 20:57:00 Elyse Tabares [facility] [place] PATHOGENS BY [facility] ACID TESTING HIV 1/2 AG-AB WITH 2022-02-22 20:57:[address] [facility] REFLEX [facility] GALV ONLY - SYPHILIS 2022-02-22 20:57:00 [facility] [place] IGG/IGM [facility] POCT URINALYSIS W/O 2022-02-22 00:00:00 Elyse Tabraes [facility] [place] SPECIFIC GRAVITY [facility] Encounters Start End Encounter Admission Attending Care Care Encounter Source Date/Time Date/Time Type Type Clinicians Facility Department ID 2022-02-22 2022-02-22 Office ROGELIO Tabares [id number] [facility] 14:45:00 15:58:43 Visit Elyse Blake GEOLOGICAL E LOGGER [id number] ity [facility] [id number] Daniel as MATERNAL [id number] [facility] ical & CHILD [address] [place] [address] Results Test Description Test Time Test Comments Results Result Comments Source GALV ONLY - SYPHILIS IGG/IGM 2022-02-23 14:53:09 Test Item Value Reference Range Interpretation Comme nts Syphilis IgG/IgM (test code = Non-reactive Non-reactive 27450-0) MINE (test code = MINE) Non-reactive - No serologic evidence of T. pallidum infection. Cannot exclude incubating or early syphilis. Submit a second specimen in 2-4 weeks if syphilis is clinically suspected. Equivocal - Further testing to follow. Reactive - Further testing to follow. Lab Interpretation (test code = Normal 04023-5) [facility] [id number] 05:57:16 Test Item Value Reference Range Interpretation Comments HIV Negative Negative Semi-quantitative (test code = 74645-6) MINE (test code = Non-reactive for HIV-1 MINE) antigen and HIV-1/HIV-2 antibodies. ?No laboratory evidence of HIV infection. ?Repeat in 2-4 weeks if acute HIV infection is suspected. [facility] SPECIFIC [id number] 20:10:00 Test Item Value Reference Range Interpretation Comments POCT PH U (test code = 3254) 5 mg/dl 5-8 POCT U LEUK EST (test code = trace Negative - Negative 3263) POCT U NIT (test code = 3262) negative Negative - Negative POCT U PROT (test code = 3259) 2+ Negative - Negative POCT U GLU (test code = 3256) normal Negative - Negative POCT U KETONE (test code = 3258) small Negative - Negative POCT U BLD (test code = 3257) large Negative - Negative [facility]
[2022-05-30 10:04] LABS: Urine Blood 3+ (Negative); Urine Glucose Negative (Negative); Urine Protein 2+ (Negative); Urine Specific Gravity 1.025 (1.005-1.030); Urine pH 6.5 (5.0-7.0)
[2022-05-30 10:31] LABS: Urine Specific Gravity/Preg 1.025 (1.005-1.030)
[2022-05-30 10:43] LABS: Hematocrit 29.6 % (36.0-45.0); MCV 72.5 fL (80-100); MPV 8.9 fL (7.6-11.3); RBC Red Blood Cell Count 4.08 M/uL (3.86-4.86)
--- NOTE | 2022-05-30 11:22 | ER ---
Nurse's Notes [facility] Name: Angel Leonardo Age: 26 yrs Sex: Female : 1995 Arrival Date: 05/30/2022 Time: 09:39 Bed 14 Private MD: Diagnosis: Abnormal uterine and vaginal bleeding, unspecified;Anemia, unspecified Presentation: 05/30 09:52 Chief complaint: Patient states: LMP 05/11/22, started bleeding heavily on 05/28/22, jl7 changing large pad hourly. Coronavirus screen: At this time, the client does not indicate any symptoms associated with coronavirus-19. Ebola Screen: No symptoms or risks identified at this time. Initial Sepsis Screen: Does the patient meet any 2 criteria? No. Patient's initial sepsis screen is negative. Does the patient have a suspected source of infection? No. Patient's initial sepsis screen is negative. Risk Assessment: Do you want to hurt yourself or someone else? Patient reports no desire to harm self or others. Onset of symptoms was May 28, 2022. 09:52 Method Of Arrival: Ambulatory 7 09:52 Acuity: AURELIO 3 jl7 Triage Assessment: 09:53 General: Appears in no apparent distress. uncomfortable, Behavior is calm, cooperative, jl7 appropriate for age. Pain: Complains of pain in right lower quadrant and left lower quadrant Pain currently is 7 out of 10 on a pain scale. : Reports vaginal bleeding that is heavy flow. [employer]FT [employer]: 09:53 LMP 05/11/2022 jl7 09:53 LMP 05/28/2022 jl7 10:15 2, Full Term 2, Premature 0, 0, Living 2, LMP 05/11/2022 ms3 Historical: - Allergies: 09:53 No Known Allergies; jl7 - Home Meds: 09:53 None [Active]; jl7 - PMHx: 09:53 Lupus; jl7 - PSHx: 09:53 None; jl7 - Immunization history:: Client reports receiving the 2nd dose of the Covid vaccine. - Social history:: Smoking status: Patient denies any tobacco usage or history of. Screenin:05 Abuse screen: Denies threats or abuse. Denies injuries from another. Nutritional jg9 screening: No deficits noted. Tuberculosis screening: No symptoms or risk factors identified. Fall Risk None identified. Assessment: 10:05 : Urine is blood tinged. jg9 11:00 Reassessment: No changes from previously documented assessment. Patient and/or family jg9 updated on plan of care and expected duration. Pain level reassessed. Patient is alert, oriented x 3, equal unlabored respirations, skin warm/dry/pink. Vital Signs: 09:52 BP 126 / 80; Pulse 74; Resp 17; Temp 97.5; Pulse Ox 100% ; Weight 77.11 kg; Height 5 jl7 ft. 7 in. (170.18 cm); Pain 7/10; 10:05 BP 107 / 73; Pulse 66; Resp 12 S; Pulse Ox 100% on R/A; Pain 6/10; jg9 10:30 BP 112 / 70; Pulse 74; Resp 14 S; Pulse Ox 100% on R/A; Pain 6/10; jg9 11:15 BP 118 / 80; Pulse 77; Resp 12 S; Pulse Ox 99% on R/A; Pain 6/10; jg9 09:52 Body Mass Index 26.63 (77.11 kg, 170.18 cm) jl7 ED Course: 09:39 Patient arrived in ED. mr 09:50 Venus Peters, [place] is Primary Nurse. jg9 09:50 Humberto Villagran DO is Attending Physician. ms3 09:53 Triage completed. jl7 09:53 Arm band placed on right wrist. jl7 10:05 Patient has correct armband on for positive identification. Bed in low position. Call jg9 light in reach. Side rails up X 1. 10:30 Inserted saline lock: 22 gauge in right antecubital area, using aseptic technique. jg9 Blood collected. 11:21 Maurice Erickson MD is Referral Physician. ms3 11:36 No provider procedures requiring assistance completed. jg9 11:36 IV discontinued. jg9 Administered Medications: No medications were administered Medication: 11:37 VIS not applicable for this client. jg9 Point of Care Testing: Urine : 10:04 hCG Reading: Negative; Control Reading: Positive; jg9 Outcome: 11:22 Discharge ordered by . ms3 11:36 Discharged to home ambulatory. jg9 11:36 Condition: stable 11:36 Discharge instructions given to patient, Instructed on discharge instructions, follow up and referral plans. Demonstrated understanding of instructions, follow-up care. 11:38 Patient left the ED. jg9 Signatures: Siobhan Nguyễn Jahala, RN RN jl7 Humberto Villagran DO DO ms3 Venus Peters RN RN jg9
--- NOTE | 2022-05-30 11:22 | EDPHYS ---
Physician Documentation [facility] Name: Angel Leonardo Age: 26 yrs Sex: Female : 1995 Arrival Date: 05/30/2022 Time: 09:39 Bed 14 Private MD: ED Physician Humberto Villagran HPI: 05/30 10:15 This 26 yrs old Female presents to ER via Ambulatory with complaints of ms3 Vaginal Bleeding. 10:15 The patient presents with vaginal bleeding that is heavy, reports using 5 pads or ms3 tampons per day. Onset: The symptoms/episode began/occurred 2 day(s) ago. Modifying factors: The symptoms are alleviated by nothing, the symptoms are aggravated by nothing. Associated signs and symptoms: Pertinent positives: cramping, Pertinent negatives: dysuria. Severity of symptoms: At their worst the symptoms were moderate, a " 7" out of "10", in the emergency department the symptoms are unchanged, a " 7" out of "10". The patient is sexually active, does not use protection during intercourse. 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 - Social history:: Smoking status: Patient denies any tobacco usage or history of. ROS: 10:15 Positive for vaginal bleeding. ms3 10:15 Constitutional: Negative for fever, and chills. Neck: Negative for injury, pain, and swelling, Cardiovascular: Negative for chest pain, and palpitations. Respiratory: Negative for shortness of breath, cough, wheezing, and pleuritic chest pain, Abdomen/GI: Negative for abdominal pain, nausea, vomiting, diarrhea, and constipation, MS/Extremity: Negative for injury and deformity. 10:15 All other systems are negative. Exam: 10:15 Constitutional: This is a well developed, well nourished patient who is awake, alert, ms3 and in no acute distress. Head/Face: Normocephalic, atraumatic. Neck: Trachea midline, no cervical lymphadenopathy. Supple, full range of motion without nuchal rigidity, or vertebral point tenderness. No Meningismus. Chest/axilla: Normal chest wall appearance and motion. Nontender with no deformity. Cardiovascular: Regular rate and rhythm with a normal S1 and S2. No gallops, murmurs, or rubs. Normal PMI, no JVD. No pulse deficits. Respiratory: Lungs have equal breath sounds bilaterally, clear to auscultation and percussion. No rales, rhonchi or wheezes noted. No increased work of breathing, no retractions or nasal flaring. 10:15 Back: No spinal tenderness. No costovertebral tenderness. Full range of motion. Skin: Warm, dry with normal turgor. Normal color with no rashes, no lesions, and no evidence of cellulitis. MS/ Extremity: Pulses equal, no cyanosis. Neurovascular intact. Full, normal range of motion. Psych: Awake, alert, with orientation to person, place and time. Behavior, mood, and affect are within normal limits. 10:15 Abdomen/GI: Inspection: abdomen appears normal, Bowel sounds: normal, Palpation: mild abdominal tenderness, in the suprapubic area. Vital Signs: 09:52 BP 126 / 80; Pulse 74; Resp 17; Temp 97.5; Pulse Ox 100% ; Weight 77.11 kg; Height 5 jl7 ft. 7 in. (170.18 cm); Pain 7/10; 10:05 BP 107 / 73; Pulse 66; Resp 12 S; Pulse Ox 100% on R/A; Pain 6/10; jg9 10:30 BP 112 / 70; Pulse 74; Resp 14 S; Pulse Ox 100% on R/A; Pain 6/10; jg9 11:15 BP 118 / 80; Pulse 77; Resp 12 S; Pulse Ox 99% on R/A; Pain 6/10; jg9 09:52 Body Mass Index 26.63 (77.11 kg, 170.18 cm) jl7 MDM: 10:12 Patient medically screened. ms3 10:15 Differential diagnosis: dysmenorrhea, ectopic , menometrorrhagia, threatened ms3 Ab, complete Ab, ruptured ectopic . 18:53 Data reviewed: vital signs, nurses notes, lab test result(s), and as a result, I will ms3 discharge patient. Counseling: I had a detailed discussion with the patient and/or guardian regarding: the historical points, exam findings, and any diagnostic results supporting the discharge/admit diagnosis, lab results, the need for outpatient follow up, to return to the emergency department if symptoms worsen or persist or if there are any questions or concerns that arise at home. Special discussion: I discussed with the patient/guardian in detail that at this point there is no indication for admission to the hospital. It is understood, however, that if the symptoms persist or worsen the patient needs to return immediately for re-evaluation. 05/30 10:05 Order name: Urine Dipstick-Ancillary; Complete Time: 10:15 EDMS 05/30 10:05 Order name: Urine --Ancillary (enter results); Complete Time: 11:07 bd 05/30 10:13 Order name: CBC w/o diff; Complete Time: 11:07 ms3 Administered Medications: No medications were administered Point of Care Testing: Urine : 10:04 hCG Reading: Negative; Control Reading: Positive; jg9 Disposition Summary: 05/30/22 11:22 Discharge Ordered Location: Home ms3 Condition: Stable ms3 Diagnosis - Abnormal uterine and vaginal bleeding, unspecified ms3 - Anemia, unspecified ms3 Followup: ms3 - With: Maurice Erickson MD - When: 2 - 3 days - Reason: Recheck today's complaints Discharge Instructions: - Discharge Summary Sheet ms3 - Anemia ms3 - Dysfunctional Uterine Bleeding ms3 Forms: - Medication Reconciliation Form ms3 - Thank You Letter ms3 - Antibiotic Education ms3 - Prescription Opioid Use ms3 Signatures: Dispatcher [employer] Enma Plata RN RN jl7 Humberto Villagran DO DO ms3 Corrections: (The following items were deleted from the chart) 18:54 18:53 Special discussion: Based on the history and exam findings, there is no ms3 indication for further emergent testing or inpatient evaluation. ms3
[2022-05-30 12:39] VITALS: TEMP 97.5
[2022-05-30 13:09] VITALS: BP 118/80; O2SAT 99
== END 2022-05-30 11:38 | disposition home or self-care (01) ==
LOC: ER 09:36
DX: N93.9 Abnormal uterine and vaginal bleeding, unspecified (principal); D64.9 Anemia, unspecified
CPT/HCPCS: 36415; 81003; 81025; 85027; 99283

== ENCOUNTER 2023-03-23 12:23 | Emergency (ER) | payer OTHER ==
--- OUTSIDE RECORDS SUMMARY | 2023-03-23 12:28 | XMS REPORT | Continuity of Care Document ---
:1995 Author Organization [facility] t Address [address] [place] [address] Care Team Providers Name Role Phone ELYSE TABARES Primary Care Physician Unavailable ANGELITA ALLEN Attending Clinician Unavailable ELYSE TABARES Attending Clinician Unavailable ZULAY MONTELONGO Attending Clinician Unavailable Zulay Montelongo CNM Attending Clinician Doctor Unassigned, [place] Attending Clinician Unavailable Elyse Alfonso Attending Clinician [phone] Provider, Jordan Temp Attending Clinician Unavailable NYA REYNA Attending Clinician Unavailable NYA REYNA Attending Clinician Unavailable Nya Moreland Attending Clinician NYA CRUZ Attending Clinician Unavailable Carlene, [facility] Nurse Attending Clinician Unavailable Benjamin Marcos DO Attending Clinician Jovana Bob Attending Clinician JOVANA HUGO Attending Clinician Unavailable Adriana Sanabria MD Attending Clinician [phone] Ultrasound, Ang-m Attending Clinician Unavailable Dank Benito MD Attending Clinician Venus Mack Attending Clinician Lab, Ang-Rmchp Attending Clinician Unavailable Daniele PEMBERTON, Adriana Harrison Admitting Clinician [phone] Payers Payer Name Policy Type Policy Number Effective Date Expiration Date Jake RANDLE [id number] 2019 HEALTH 00:00:00 Problems Condition Condition Condition Status Onset Resolution Last Treating Co mments Source Name Details Category Date Date Treatment Clinician Date Nausea and Nausea and Disease Active U nivers vomiting vomiting 5-16 ity of during during 00:00: [place] 00 [facility] Well woman Well woman Disease Active 2021-10 U nivers exam exam 2-27 ity of 00:00: [address] Iron Iron Disease Active 2021-10 Univers deficiency deficiency 1-10 it y of anemia anemia 00:00: [address] Oral Oral Disease Active 2021-10 Univers contracept contracept 1-10 it y of saadia pill saadia pill 00:00: [place] surveillan surveillan 00 Me dical ce ce Branch Need for Need for Disease Active Unive rs HPV HPV 8-03 ity of vaccine vaccine 00:00: [address] Branch Cramping Cramping Disease Active Unive rs affecting affecting 3-03 [place]y [place] ante[place] antepartum 00 Me dical Branch History of History of Disease Active 2018-10 Overview : Univers systemic systemic 2-20 Formattin ity of lupus lupus 00:00: g of this [place] erythemato erythemato 00 note Me dical sharmaine (SLE) sharmaine (SLE) might be Br anch different from the original. Reports dx in 2016, but did not follow up History of History of Disease Active 2018-10 Overview : Univers lupus lupus 2-20 Formattin ity of 00:00: g of this [place] 00 note Medical might be Branch different from the original. Reports dx in 2016, but did not follow up Allergies, Adverse Reactions, Alerts Allergy Allergy Status Severity Reaction(s) Onset Inactive Treating Comm ents Source Name Type Date Date Clinician NO KNOWN Drug Active Univers ALLERGIE Class ity of S [facility] Social History Social Habit Start Date Stop Date Quantity Comments Source ASSERTION 2023-02-05 University of 00:00:00 [place] [facility] History of Cigarette Smoker Universi ty of tobacco use [place] [facility] History [facility] University o f Alcohol Frequency [place] [facility] History SDOH University o f Alcohol Std [place] Medical Drinks Branch History [facility] University o f Alcohol Binge [place] [facility] al Branch Exposure to 2023-02-18 2023-02-28 Not sure University of SARS-CoV-2 00:00:00 14:24:00 [facility] (event) Branch Tobacco Comment 2023-02-28 2023-02-28 Stopped for Universi ty of 00:00:00 00:00:00 . Not an [facility] everyday smoker, Branch only social. Alcohol intake 2023-02-28 2023-02-28 Ex-drinker University of 00:00:00 00:00:00 (finding) [facility] Tobacco use and 2023-02-28 2023-02-28 Smokeless tobacco Un iversity of exposure 00:00:00 00:00:00 non-user [facility] Alcohol Comment 2017-02-22 2017-02-22 occasionally Univers ity of 00:00:00 00:00:00 [facility] Sex Assigned At [birth year] Universit y of 00:00:00 00:00:00 [facility] Smoking Status Start Date Stop Date Source Ex-smoker 2023-02-28 00:00:00 2023-02-28 00:00:00 Universi ty of [facility] Never smoked tobacco [facility] Medications Ordered Filled Start Stop Current Ordering Indication Dosage Frequency Signature Comments Components Source Medication Medication Date Date Medication? Clinician (SIG) Name Name raheem 2021-10 Yes [id number] 1{tbl} Take 1 Univers ne-e.estrad 0-05 tablet by ity of ioL-iron 00:00: mouth in [place] ( the Medical .03/14, morning. Branch 28,) 1.5 mg-30 mcg (21)/75 mg (7) per tablet norethindro 2021-10 Yes [id number] 1{tbl} Take 1 Univers ne-e.estrad 0-05 tablet by ity of ioL-iron 00:00: mouth in [place] ( the Medical .03/14, morning. Branch 28,) 1.5 mg-30 mcg (21)/75 mg (7) per tablet norethindro 2021-10 Yes [id number] 1{tbl} Take 1 Univers ne-e.estrad 0-05 tablet by ity of ioL-iron 00:00: mouth in [place] ( the Medical , morning. Branch 28,) 1.5 mg-30 mcg (21)/75 mg (7) per tablet norethindro 2021-10 Yes [id number] 1{tbl} Take 1 Univers ne-e.estrad 0-05 tablet by ity of ioL-iron 00:00: mouth in [place] ( the Medical , morning. Branch 28,) 1.5 mg-30 mcg (21)/75 mg (7) per tablet norethindro 2021-10 Yes [id number] 1{tbl} Take 1 Univers ne-e.estrad 0-05 tablet by ity of ioL-iron 00:00: mouth in [place] ( the Medical , morning. Branch 28,) 1.5 mg-30 mcg (21)/75 mg (7) per tablet norethindro 2021-10 Yes [id number] 1{tbl} Take 1 Univers ne-e.estrad 0-05 tablet by ity of ioL-iron 00:00: mouth in [place] ( the Medical , morning. Branch 28,) 1.5 mg-30 mcg (21)/75 mg (7) per tablet norethindro 2021-10 Yes [id number] 1{tbl} Take 1 Univers ne-e.estrad 0-05 tablet by ity of ioL-iron 00:00: mouth in [place] ( the Medical , morning. Branch 28,) 1.5 mg-30 mcg (21)/75 mg (7) per tablet norethindro 2021- [id number] 1{tbl} Take 1 Univers ne-e.estrad 0-05 05-16 tablet by it y of ioL-iron 00:00: 00:00 mouth in [facility] ( 00 : the Medical , morning. Branch 28,) 1.5 mg-30 mcg (21)/75 mg (7) per tablet metroNIDAZO 2021- No [id number] 500mg Take 1 Univers LE 500 mg 5-11 10-05 tablet by ity of tablet 00:00: 00:00 mouth 2 [place] 00 :00 (two) Medical times Branch daily. metroNIDAZO 2021- No [id number] 500mg Take 1 Univers LE 500 mg 5-11 10-05 tablet by ity of tablet 00:00: 00:00 mouth 2 [place] 00 :00 (two) Medical times Branch daily. fluconazole 2021- No [id number] 150mg Take 1 Univers (DIFLUCAN) 5-10 05-11 tablet by ity of 150 mg 00:00: 04:59 [place] tablet [place] :00 now for 1 Medical dose. Branch medroxyPROG 2021- No [id number] 150mg Univers ESTERone 07-13 08-30 ity of (DEPO-PROVE 19:45: 19:44 [facility]) 00 :00 Medical injection Branch 150 mg Immunizations Ordered Immunization Filled Immunization Date Status Commen ts Source Name Name Influenza Virus 2022-07-20 Completed Universit y of Vaccine [facility], 00:00:00 [place] Me dical Preserv and ABX Free Bran ch 6 MO-64 YRS Influenza Virus 2022-07-20 Completed Universit y of Vaccine [facility], 00:00:00 [place] Me dical Preserv and ABX Free Bran ch 6 MO-64 YRS Influenza Virus 2022-07-20 Completed Universit y of Vaccine [place] [facility], 00:00:00 [place] Me dical Preserv and ABX Free Bran ch 6 MO-64 YRS Influenza Virus 2022-07-20 Completed Universit y of Vaccine [place] [facility], 00:00:00 [place] Me dical Preserv and ABX Free Bran ch 6 MO-64 YRS Influenza Virus 2022-07-20 Completed Universit y of Vaccine [facility], 00:00:00 [place] Me dical Preserv and ABX Free Bran ch 6 MO-64 YRS Influenza Virus 2022-07-20 Completed Universit y of Vaccine [facility], 00:00:00 [place] Me dical Preserv and ABX Free Bran ch 6 MO-64 YRS Influenza Virus 2022-07-20 Completed Universit y of Vaccine [place] [facility], 00:00:00 [place] Me dical Preserv and ABX Free Bran ch 6 MO-64 YRS Influenza Virus 2022-07-20 Completed Universit y of Vaccine [facility], 00:00:00 [facility] dical Preserv and ABX Free Bran ch 6 MO-64 YRS HPV9 2021-10-05 Completed University of 00:00:00 [facility] HPV9 2021-10-05 Completed University of 00:00:00 [facility] HPV9 2021-10-05 Completed University of 00:00:00 [facility] HPV9 2021-10-05 Completed University of 00:00:00 [facility] HPV9 2021-10-05 Completed University of 00:00:00 [facility] HPV9 2021-10-05 Completed University of 00:00:00 [facility] HPV9 2021-10-05 Completed University of 00:00:00 [facility] HPV9 2021-10-05 Completed University of 00:00:00 [facility] HPV9 2021-10-05 Completed University of 00:00:00 [facility] SARS-COV-2 COVID-19 2021-07-31 Completed Unive rsity of PFIZER VACCINE 00:00:00 [facility] SARS-COV-2 COVID-19 2021-07-10 Completed Unive rsity of PFIZER VACCINE 00:00:00 [facility] Influenza Virus 2020-08-26 Completed Universit y of [...] Branch HPV9 2020-05-18 Completed University of 00:00:00 [facility] HPV9 2020-05-18 Completed University of 00:00:00 [facility] HPV9 2020-05-18 Completed University of 00:00:00 [facility] HPV9 2020-05-18 Completed University of 00:00:00 [facility] HPV9 2020-05-18 Completed University of 00:00:00 [facility] HPV9 2020-05-18 Completed University of 00:00:00 [facility] HPV9 2020-05-18 Completed University of 00:00:00 [facility] HPV9 2020-05-18 Completed University of 00:00:00 [facility] HPV9 2020-05-18 Completed University of 00:00:00 [facility] HPV9 2020-04-06 Completed University of 00:00:00 [facility] MMR 2020-04-06 Completed University of 00:00:00 [facility] HPV9 2020-04-06 Completed University of 00:00:00 [facility] MMR 2020-04-06 Completed University of 00:00:00 [facility] HPV9 2020-04-06 Completed University of 00:00:00 [facility] MMR 2020-04-06 Completed University of 00:00:00 [facility] HPV9 2020-04-06 Completed University of 00:00:00 [facility] MMR 2020-04-06 Completed University of 00:00:00 [facility] HPV9 2020-04-06 Completed University of 00:00:00 [facility] MMR 2020-04-06 Completed University of 00:00:00 [facility] HPV9 2020-04-06 Completed University of 00:00:00 [facility] MMR 2020-04-06 Completed University of 00:00:00 [facility] HPV9 2020-04-06 Completed University of 00:00:00 [facility] MMR 2020-04-06 Completed University of 00:00:00 [facility] HPV9 2020-04-06 Completed University of 00:00:00 [facility] MMR 2020-04-06 Completed University of 00:00:00 [facility] HPV9 2020-04-06 Completed University of 00:00:00 [facility] MMR 2020-04-06 Completed University of 00:00: [facility] TDAP 2020-01-31 Completed University of 00:00: [facility] TDAP 2020-01-31 Completed University of 00:00:00 [facility] TDAP 2020-01-31 Completed University of 00:00:00 [facility] TDAP 2020-01-31 Completed University of 00:00: [facility] TDAP 2020-01-31 Completed University of 00:00:00 [facility] TDAP 2020-01-31 Completed University of 00:00:00 [facility] TDAP 2020-01-31 Completed University of 00:00:00 [facility] TDAP 2020-01-31 Completed University of 00:00:00 [facility] TDAP 2020-01-31 Completed University of 00:00:00 [facility] Influenza Virus 2019-10-04 Completed Universit y of [...] Meningococcal 2010-05-25 Completed University of Polysaccharide 00:00:00 [facility] teena (groups A, C, Y and Branc h W-135) conjugate vaccine (MCV4P) Meningococcal 2010-05-25 Completed University of Polysaccharide 00:00:00 [place] [facility] [place] (groups A, C, Y and Branc h W-135) conjugate vaccine (MCV4P) Meningococcal 2010-05-25 Completed University of Polysaccharide 00:00:00 [place] [facility] [place]ena (groups A, C, Y and Branc h W-135) conjugate vaccine (MCV4P) Meningococcal 2010-05-25 Completed University of Polysaccharide 00:00:00 [place] [facility] [place]ena (groups A, C, Y and Branc h W-135) conjugate vaccine (MCV4P) Meningococcal 2010-05-25 Completed University of Polysaccharide 00:00:00 [place] [facility]ena (groups A, C, Y and Branc h W-135) conjugate vaccine (MCV4P) Meningococcal 2010-05-25 Completed University of Polysaccharide 00:00:00 [place] [facility] [place]ena (groups A, C, Y and Branc h W-135) conjugate vaccine (MCV4P) Meningococcal 2010-05-25 Completed University of Polysaccharide 00:00:00 [place] [facility] [place]ena (groups A, C, Y and Branc h W-135) conjugate vaccine (MCV4P) Meningococcal 2010-05-25 Completed University of Polysaccharide 00:00:00 [place] [facility] [place]ena (groups A, C, Y and Branc h W-135) conjugate vaccine (MCV4P) Meningococcal 2010-05-25 Completed University of Polysaccharide 00:00:00 [place] [facility] [place]ena (groups A, C, Y and Branc h W-135) conjugate vaccine (MCV4P) Vital Signs Vital Name Observation Time Observation Value Comments Source Systolic blood 2023-02-28 19:25:00 118 mm[Hg] Univer sity of pressure [facility] Diastolic blood 2023-02-28 19:25:00 80 mm[Hg] Unive [facility] Heart rate 2023-02-28 19:24:00 87 /min [facility] Body temperature 2023-02-28 19:24:00 36.33 Janneth [facility] Respiratory rate 2023-02-28 19:24:00 18 /min [facility] Body height 2023-02-28 19:24:00 170.2 cm [facility] Body weight 2023-02-28 19:24:00 69.003 kg Universi ty [facility] [place] [facility] BMI 2023-02-28 19:24:00 23.83 kg/m2 Universi ty [facility] [place] [facility] Systolic blood 2022-10-11 19:54:00 120 mm[Hg] Univer sity of pressure [place] [facility] Diastolic blood 2022-10-11 19:54:00 83 mm[Hg] Unive rsity of pressure [place] [facility] Heart rate 2022-10-11 19:54:00 79 /min Universi ty [facility] [place] [facility] Body temperature 2022-10-11 19:54:00 36.5 Janneth Univ ersity of [place] [facility] Respiratory rate 2022-10-11 19:54:00 18 /min Univ ersity of [place] [facility] Body height 2022-10-11 19:54:00 170.2 cm Universi ty [facility] [place] [facility] Body weight 2022-10-11 19:54:00 68.663 kg Universi ty [facility] [place] [facility] BMI 2022-10-11 19:54:00 23.71 kg/m2 [facility]i ty [facility] [place] [facility] Systolic blood 2022-08-25 15:40:00 125 mm[Hg] Univer sity of pressure [place] [facility] Diastolic blood 2022-08-25 15:40:00 79 mm[Hg] Unive rsity of pressure [place] [facility] Heart rate 2022-08-25 15:40:00 75 /min Universi ty [facility] [place] [facility] Body temperature 2022-08-25 15:40:00 36.61 Janneth Univ ersity of [place] [facility] Respiratory rate 2022-08-25 15:40:00 20 /min Univ ersity of [place] [facility] Body height 2022-08-25 15:40:00 170.2 cm [facility]i ty [facility] [place] [facility] Body weight 2022-08-25 15:40:00 72.122 kg [facility]i ty [facility] [place] [facility] BMI 2022-08-25 15:40:00 24.90 kg/m2 [facility]i ty [facility] [place] [facility] Systolic blood 2022-07-20 18:28:00 109 mm[Hg] Univer sity of pressure [place] [facility] Diastolic blood 2022-07-20 18:28:00 77 mm[Hg] Unive rsity of pressure [place] [facility] Heart rate 2022-07-20 18:28:00 80 /min Universi ty [facility] [place] [facility] Body temperature 2022-07-20 18:28:00 36.56 Janneth [facility] 2022-07-20 18:28:00 18 /min [facility] Body weight 2022-07-20 18:28:00 74.798 kg Universi [facility] BMI 2022-07-20 18:28:00 25.83 kg/m2 Universi ty [facility] Systolic blood 2022-02-22 20:03:00 113 mm[Hg] Univer sity of pressure [facility] Diastolic blood 2022-02-22 20:03:00 64 mm[Hg] Unive rsity of pressure [facility] Heart rate 2022-02-22 20:03:00 74 /min [facility] Body temperature 2022-02-22 20:03:00 36.78 Janneth [facility] Respiratory rate 2022-02-22 20:03:00 20 /min [facility] Body height 2022-02-22 20:03:00 170.2 cm [facility] Body weight 2022-02-22 20:03:00 79.198 [facility] BMI 2022-02-22 20:03:00 27.35 kg/m2 [facility] Procedures Procedure Date / Time Performed Performing Clinician Sourc e POCT URINALYSIS W/O 2023-02-28 19:23:00 Zulay Montelongo [facility] SPECIFIC GRAVITY [facility] POCT TEST 2023-02-28 19:22:00 Zulay Montelongo [facility] CONSENT/REFUSAL FOR 2023-02-28 18:31:38 [facility]igned, [facility] Name [facility] Branch TREATMENT POCT TEST 2022-10-11 20:02:00 Elyse Tabares [facility] FLU VACC (), 2022-07-20 18:53:48 Nya Reyna [facility] 6 MO-64 YRS, .5ML, IM, Medical B ranch QUAD (FLUCELVAX) POCT TEST 2022-07-20 18:42:00 [facility] CHLAMYDIA 2022-02-22 20:57:00 Elyse Tabares [facility] AMPLIFIED ASSAY [facility] GALV ONLY - VAGINAL 2022-02-22 20:57:00 Elyse Tabares Uni versity of [place] PATHOGENS BY [facility] Medical [facility] ACID TESTING HIV 1/2 AG-AB WITH 2022-02-22 20:57:00 Elyse Tabares [facility] REFLEX [facility] GALV ONLY - SYPHILIS 2022-02-22 20:57:00 [facility]IGM [facility] POCT URINALYSIS W/O 2022-02-22 00:00:00 Elyse Tabares Uni versity of [place] SPECIFIC GRAVITY [facility] Encounters Start End Encounter Admission Attending Care Care Encounter Source Date/Time Date/Time Type Type Clinicians Facility Department ID 2021-08-13 Outpatient [facility] [id number] Univers 01:59:49 [facility] 2023-04-24 2023-04-24 Outpatient P [facility] [id number] Univers 11:15:00 [facility]:15[facility] 2023-[facility]-30 2023-03-30 Outpatient R ALEJANDRO [facility] [id number] Univers 13:15:00 13:15:00 ANGELITA [facility] 2023-03-28 2023-03-28 Outpatient R RAYSHAWN [facility] [id number] Univers 14:15:00 14:15:00 ELYSE itagatha o f [facility] 2023-02-28 2023-02-28 [facility] [id number] Univers 14:15:00 15:12:30 ZULAY [facility] 2023-02-28 2023-02-28 Initial Jayda [facility] [id number] Univers 14:15:00 15:12:30 Zulay A MECHANICAL TECHNICIAN [id number] ity of Visit REGIONAL [id number] Daniel as MATERNAL [id number] [facility] ical & CHILD [address] [place] [address] 2023-02-28 2023-02-28 Orders Doctor BERYL [id number] Univers 00:00:00 00:00:00 Only Unassigned, LEATHA [id number] ity of [place] [facility] [id number] Daniel as [id number] [address] 2022-10-11 2022-10-11 Outpatient R RAYSHAWN [facility] [id number] Univers 13:30:00 14:37:39 ELYSE tello o f [facility] 2022-10-11 2022-10-11 Office Rayshawn [facility] [id number] [facility] 13:30:00 14:37:39 Visit Elyse Blake MECHANICAL TECHNICIAN [id number] ity [place] [id number] Daniel as MATERNAL [id number] [facility] & CHILD [address] [place] [address] 2022-08-25 2022-08-25 Outpatient R JAYDA [facility] [id number] Univers 09:45:00 10:41:13 ZULAY tello [facility] 2022-08-25 2022-08-25 Office Provider, Jordan [facility] [id number] Univers 09:45:00 10:41:13 Visit Zulay Montelongo MECHANICAL TECHNICIAN [id number] [place] [id number] Daniel as MATERNAL [id number] [facility] & CHILD [address] [place] [address] 2022-07-20 2022-07-20 Outpatient R NYA REYNA [facility] [id number] Univers 13:15:00 14:04:15 NYA REYNA [facility] 2022-07-20 2022-07-20 Office Provider, Jordan [facility] [id number] Univers 13:15:00 14:04:15 Visit Nya Reyna MECHANICAL TECHNICIAN [id number] ity of [facility] [id number] Daniel as MATERNAL [id number] [facility] & CHILD [address] [place] [address] 2022-07-11 2022-07-11 Outpatient R RAYSHAWN [facility] [id number] Univers 08:15:00 08:15:00 ELYSE tello o gildardo [facility] 2022-06-27 2022-06-27 Outpatient R RAYSHAWN, [facility] [id number] Univers 13:45:00 13:45:00 ELYSE tello o [facility] 2022-05-31 2022-05-31 Outpatient R RAYSHAWN, [facility] [id number] Univers 10:45:00 10:45:00 ELYSE tello o [facility] 2022-02-23 2022-02-23 Telephone [facility] [id number] Univers 00:00:00 00:00:00 Elyse Blake MECHANICAL TECHNICIAN [id number] ity of [facility] [id number] Daniel as MATERNAL [id number] [facility] & CHILD [address] [place] [address] 2022-02-22 2022-02-22 [facility] [id number] Univers 14:45:00 15:58:43 ELYSE bradagatha o [facility] 2022-02-22 2022-02-22 Office [facility] [id number] Univers 14:45:00 15:58:43 Visit Elyse Blake MECHANICAL TECHNICIAN [id number] ity of [facility] [id number] Daniel as MATERNAL [id number] [facility] & CHILD [address] [place] [address] 2022-02-22 2022-02-22 Orders Doctor CORDOBA [id number] Univers 00:00:00 00:00:00 Only Unassigned, LEATHA [id number] ity of [place] [facility] [id number] Daniel as [id number] [address] 2022-02-22 2022-02-22 Letter [facility] [id number] Univers 00:00:00 00:00:00 (Out) Elyse Blake MECHANICAL TECHNICIAN [id number] ity of [facility] [id number] Daniel as MATERNAL [id number] Med ical & CHILD [address] [facility] 2021-12-28 2021-12-28 Outpatient R [facility] [id number] Univers 15:00:00 15:00:00 ity of [facility] 2021-12-28 2021-12-28 Outpatient [facility] [id number] Univers 15:00:00 15:00:00 ELYSE tello o f [facility] 2021-10-23 2021-10-23 [facility] [id number] Univers 00:00:00 00:00:00 Nya Vizcaino MECHANICAL TECHNICIAN [id number] it y of [facility] [id number] Daniel as MATERNAL [id number] Med ical & CHILD [address] [place] [address] 2021-10-05 2021-10-05 Office [facility] 1.2.319.350 [id number] Univers 14:30:00 14:49:24 Visit Nya Vizcaino MECHANICAL TECHNICIAN 350.1.13.10 it y of [facility] 4.2.7.2.686 Daniel as MATERNAL [id number] Med ical & CHILD [address] [place] [address] 2021-10-05 2021-10-05 Outpatient tSevenson [facility] [id number] Univers 14:30:00 14:49:24 NYA tello [facility] 2021-10-05 2021-10-05 Outpatient R [facility] [id number] Univers 14:30:00 14:30:00 NYA tello [facility] 2021-07-13 2021-07-13 Office [facility] 1.2.065.328 [id number] Univers 14:11:12 15:00:50 Visit Elyse Blake MECHANICAL TECHNICIAN 350.1.13.10 ity of [facility] 4.2.7.2.686 Daniel as MATERNAL [id number] Med ical & CHILD [address] [place] [address] 2021-07-13 2021-07-13 Outpatient R RAYSHAWN [facility] [id number] Univers 14:15:00 14:15:00 ELYSE ity o f [facility] 2021-04-22 2021-04-22 Outpatient R [facility] [id number] Univers 15:30:00 15:30:00 ity [facility] 2021-04-20 2021-04-20 Nurse Visit, Jordan Nurse [facility] 1.2 .840.114 [id number] Univers 16:09:50 16:25:01 Visit Elyse Tabares MECHANICAL TECHNICIAN 350.1.13. 10 ity [facility] 4.2.7.2.686 Daniel as MATERNAL [id number] [facility] & CHILD [address] [place] [address] 2021-04-20 2021-04-20 Outpatient R [facility] [id number] Univers 16:00:00 16:00:00 ity [facility] 2021-02-23 2021-02-23 Office Rayshawn [facility] 1.2.022.766 [id number] Univers 14:03:58 15:26:49 Visit Elyse Blake MECHANICAL TECHNICIAN 350.1.13.10 ity [facility] 4.2.7.2.686 Daniel as MATERNAL [id number] [facility] & CHILD [address] [place] [address] 2021-02-23 2021-02-23 Outpatient R RAYSHAWN [facility] [id number] Univers 14:15:00 14:15:00 ELYSE tello o f [facility] 2021-02-23 2021-02-23 Telephone Rayshawn [facility] 1.2.840.114 [id number] Univers 00:00:00 00:00:00 Elyse Blake MECHANICAL TECHNICIAN 350.1.13.10 ity [facility] 4.2.7.2.686 Daniel as MATERNAL [id number] [facility] [address] [place] [address] 2021-01-27 2021-01-27 Nurse Visit, Jordan Nurse [facility] 1.2 .840.114 [id number] Univers 15:33:41 15:48:41 Visit Elyse Tabares MECHANICAL TECHNICIAN 350.1.13. 10 ity of [facility] 4.2.7.2.686 Daniel as MATERNAL [id number] [facility] [address] [place] [address] 2021-01-27 2021-01-27 Outpatient R [facility] [id number] Univers 15:30:00 15:30:00 ity of [facility] 2021-01-05 2021-01-05 Patient Hemant [facility] 1.2.840.114 [id number] Univers 00:00:00 00:00:00 Outreach Benjamin PRIMARY 350.1.13.10 i ty of [facility] 4.2.7.2.686 Sanjiv FORTUNE [id number] [address] 2020-11-04 2020-11-04 Nurse Visit, Jordan Nurse [facility] 1.2 .840.114 [id number] Univers 14:06:55 14:39:49 Visit Elyse Tabares MECHANICAL TECHNICIAN 350.1.13. 10 ity of [facility] 4.2.7.2.686 Daniel as MATERNAL [id number] [facility] & [address] 2020-11-04 2020-11-04 Outpatient R RAYSHAWN [facility] [id number] Univers 14:00:00 14:00:00 ELYSE tello o f [facility] 2020-10-21 2020-10-21 Outpatient R [facility] [id number] Univers 15:00:00 15:00:00 ity of [facility] 2020-10-13 2020-10-13 Outpatient R [facility] [id number] Univers 13:30:00 13:30:00 ity [facility] 2020-10-07 2020-10-07 Nurse Visit, Jordan Nurse [facility] 1.2 .840.114 [id number] Univers 14:55:00 15:17:32 Visit Elyse Tabares MECHANICAL TECHNICIAN 350.1.13. 10 ity of [facility] 4.2.7.2.686 Daniel as MATERNAL [id number] [facility] [address] [place] [address] 2020-10-07 2020-10-07 Outpatient R AKINSIPE, [facility] [id number] Univers 15:00:00 15:00:00 ELYSE tello o f [facility] 2020-10-07 2020-10-07 Orders Doctor BERYL 1.2.840.114 [id number] Univers 00:00:00 00:00:00 Only Unassigned, LEATHA 350.1.13.10 ity of [place] [facility] 4.2.7.2.686 Daniel as [id number] [address] 2020-09-29 2020-09-29 Office Akinsipe, [facility] 1.2.756.366 [id number] Univers 13:39:32 14:03:49 Visit Elyse Blake MECHANICAL TECHNICIAN 350.1.13.10 ity of [place] [id number] Daniel as MATERNAL [id number] [facility] [address] [place] [address] 2020-09-29 2020-09-29 Outpatient R AKINSIPE, [facility] [id number] Univers 13:30:00 13:30:00 ELYSE salinasy o f [facility] 2020-09-22 2020-09-22 Outpatient R AKINSIPE, [facility] [id number] Univers 15:15:00 15:15:00 ELYSE salinasy o f [facility] 2020-09-16 2020-09-16 Outpatient R AKINSIPE, [facility] [id number] Univers 14:45:00 14:45:00 ELYSE ity o f [facility] 2020-09-15 2020-09-15 Outpatient R AKINSIPE, [facility] [id number] Univers 10:30:00 10:30:00 ELYSE ity o [facility] 2020-08-26 2020-08-26 Office Akinsipe, [facility] 1.2.773.111 [id number] Univers 15:17:52 16:11:07 Visit Elyse Blake MECHANICAL TECHNICIAN 350.1.13.[address]686 Daniel as MATERNAL [id number] [facility] [address] [place] [address] 2020-08-26 2020-08-26 Outpatient R AKINSIPE, [facility] [id number] Univers 15:00:00 15:00:00 ELYSE tello o gildardo [facility] 2020-08-18 2020-08-18 Outpatient R [facility] [id number] Univers 15:15:00 15:15:00 ELYSE tello o gildardo [facility] 2020-05-18 2020-05-18 Office Anjumaheshminor Elyse Blake [facility] 1.2.8 40.114 [id number] Univers 15:19:27 16:23:06 Visit Jovana Hugo R MECHANICAL TECHNICIAN 350.1.13.10 ity of [facility] 4.2.7.2.686 Daniel as MATERNAL [id number] [facility] & [address] 2020-05-18 2020-05-18 Outpatient Stevenson [facility] [id number] Univers 15:15:00 15:15:00 JOVANA ewing [facility] 2020-04-27 2020-04-27 [facility]ine [facility] 1.2.840.114 [id number] Univers 09:14:53 09:45:07 Jovana R MECHANICAL TECHNICIAN 350.1.13.10 ity of Visit [facility] 4.2.7.2.686 Daniel as MATERNAL [id number] [facility] & [address] 2020-04-27 2020-04-27 Outpatient Stevenson HUGO [facility] [id number] Univers 09:30:00 09:30:00 BROOKEA omer ewing [facility] 2020-04-04 2020-04-06 [facility] BERYL Sanabria 1.2.840.114 [id number] Univers 20:05:00 19:30:00 Encounter Adriana ZHANG 350.1.13.10 ity of [facility] 4.2.7.2.686 [place] [id number] [address] 2020-04-06 2020-04-06 Abstract [facility] 1.2.840.114 [id number] Univers 00:00:00 00:00:00 Elyse Blake MECHANICAL TECHNICIAN 350.1.13.10 ity of [facility] 4.2.7.2.686 Daniel as MATERNAL [id number] [facility] [address] [place] [address] 2020-04-01 2020-04-01 Routine Oanh [facility] 1.2.840.114 [id number] Univers 15:28:59 15:57:53 Neymarbridget R MECHANICAL TECHNICIAN 350.1.13.10 ity of Visit [facility] 4.2.7.2.686 Daniel as MATERNAL [id number] [facility] [address] [place] [address] 2020-04-01 2020-04-01 Outpatient R OANH [facility] [id number] Univers 15:45:00 15:45:00 ROSNDA ity o f [facility] 2020-03-31 2020-03-31 Special Education Educational Assistant Ultrasound, Ana [facility] 1.2 .840.114 [id number] Univers 08:29:04 08:53:06 Visit Dank Benito MECHANICAL TECHNICIAN 350.1.13.10 ity of [facility] 4.2.7.2.686 Daniel as MATERNAL [id number] [facility] [address] [facility] 2020-03-31 2020-03-31 Outpatient P [facility] [id number] Univers 08:30:00 08:30:00 ity of [facility] 2020-03-26 2020-03-26 Routine Provider, Jordan [facility] 1 .2.840.114 [id number] Univers 14:56:31 15:35:28 Venus Marcum MECHANICAL TECHNICIAN 350.1.13.1 0 ity of Visit [facility] 4.2.7.2.686 Daniel as MATERNAL [id number] [facility] [address] [place] [address] 2020-03-26 2020-03-26 Outpatient R [facility] [id number] Univers 15:00:00 15:00:00 ity of [facility] 2020-03-20 2020-03-20 Telephone Rayshawn [facility] 1.2.840.114 [id number] Univers 00:00:00 00:00:00 Elyse Blake MECHANICAL TECHNICIAN 350.1.13.10 ity of [facility] 4.2.7.2.686 Daniel as MATERNAL [id number] [facility] [address] [place] [address] 2020-03-18 2020-03-18 Routine Provider, Ang-Rmchp Temp [facility] 1 .2.840.114 [id number] Univers 12:45:09 13:20:10 Venus Marcum MECHANICAL TECHNICIAN 350.1.13.1 0 ity of Visit REGIONAL 4.2.7.2.686 Daniel as MATERNAL [id number] [facility] & CHILD [address] [place] [address] 2020-03-18 2020-03-18 Outpatient R [facility] [id number] Univers 12:45:00 12:45:00 ity of [facility] 2020-03-13 2020-03-13 Telephone AnjuBanner 1.2.840.114 [id number] Univers 00:00:00 00:00:00 Elyse C MECHANICAL TECHNICIAN 350.1.13.10 ity of [facility] 4.2.7.2.686 Daniel as MATERNAL [id number] [facility] & CHILD [address] [place] [address] 2020-03-12 2020-03-12 Telephone [facility] 1.2.840.114 [id number] Univers 00:00:00 00:00:00 Elyse C MECHANICAL TECHNICIAN 350.1.13.10 ity of [facility] 4.2.7.2.686 Daniel as MATERNAL [id number] [address] 2020-03-11 2020-03-11 Routine [facility], [facility] 1.2.680.468 [id number] Univers 10:14:34 10:29:34 Elyse C MECHANICAL TECHNICIAN 350.1.13.10 ity of Visit REGIONAL 4.2.7.2.686 Daniel as MATERNAL [id number] [facility] & CHILD [address] [place] [address] 2020-03-11 2020-03-11 Outpatient R [facility] [id number] Univers 10:15:00 10:15:00 ELYSE ity o f [facility] 2020-02-26 2020-02-26 Telemedici [facility] 1.2.840.114 [id number] Univers 11:44:51 13:42:56 ne Visit Elyse C MECHANICAL TECHNICIAN 350.1.13.10 ity of [facility] 4.2.7.2.686 Daniel as MATERNAL [id number] [facility] & CHILD [address] [place] [address] 2020-02-26 2020-02-26 Outpatient R RAYSHAWN, [facility] [id number] Univers 12:45:00 12:45:00 ELYSE flannery [facility] 2020-02-20 2020-02-20 Nurse [facility] 1.2 .840.114 [id number] Univers 10:22:58 10:33:44 Visit Elyse Tabares MECHANICAL TECHNICIAN 350.1.13. 10 ity of [facility] 4.2.7.2.686 Daniel as MATERNAL [id number] [facility] & CHILD [address] [place] [address] 2020-02-20 2020-02-20 Outpatient R RAYSHAWN, [facility] [id number] Univers 10:00:00 10:00:00 ELYSE flannery [facility] 2020-02-20 2020-02-20 Orders Doctor BERYL 1.2.840.114 [id number] Univers 00:00:00 00:00:00 Only Unassigned, LEATHA 350.1.13.10 ity of [place] [facility] 4.2.7.2.686 Daniel as [id number] [address] 2020-02-19 2020-02-19 Tele[facility] 1.2.840.114 [id number] Univers 00:00:00 00:00:00 Elyse Blake MECHANICAL TECHNICIAN 350.1.13.10 ity of [facility] 4.2.7.2.686 Daniel as MATERNAL [id number] [facility] & CHILD [address] [place] [address] 2020-02-10 2020-02-10 Outpatient R AKINMARIZA, [facility] [id number] Univers 10:45:00 10:45:00 ELYSE ewing [facility] 2020-02-10 2020-02-10 Outpatient R AKINMARIZA, [facility] [id number] Univers 10:30:00 10:30:00 ELYSE flannery [facility] 2020-01-31 2020-01-[address] [facility] 1.2.659.140 [id number] Univers 14:06:08 14:54:35 Elyse C MECHANICAL TECHNICIAN 350.1.13.10 ity of Visit [facility]IONAL 4.2.7.2.686 Daniel as MATERNAL [id number] [facility] [address] [place] [address] 2020-01-31 2020-01-31 Outpatient [facility] [id number] Univers 14:00:00 14:00:00 ELYSE ity o f [facility] 2020-01-28 2020-01-28 [facility] [id number] Univers 15:00:00 15:00:00 ELYSE ity o f [facility] 2020-01-15 2020-01-[address] [facility] 1.2.840.114 [id number] Univers 00:00:00 00:00:00 Elyse C MECHANICAL TECHNICIAN 350.1.13.10 ity of [facility] 4.2.7.2.686 Daniel as MATERNAL [id number] [facility] [address] [place] [address] 2020-01-15 2020-01-[address] [facility] 1.2.840.114 [id number] Univers 00:00:00 00:00:00 Elyse C MECHANICAL TECHNICIAN 350.1.13.10 ity of [facility] 4.2.7.2.686 Daniel as MATERNAL [id number] [facility] & [address] 2020-01-14 2020-01-[address] [facility] 1.2.461.707 [id number] Univers 14:05:01 15:15:00 Elyse C MECHANICAL TECHNICIAN 350.1.13.10 ity of Visit REGIONAL 4.2.7.2.686 Daniel as MATERNAL [id number] [facility] & [address] 2020-01-14 2020-01-14 Out[facility] [id number] Univers 14:00:00 14:00:00 ELYSE ity o f [facility] 2019-12-31 2019-12-[address] [facility] 1.2.840.114 [id number] Univers 00:00:00 00:00:00 Elyse C MECHANICAL TECHNICIAN 350.1.13.10 ity of [facility] 4.2.7.2.686 Daniel as MATERNAL [id number] [facility] [address] [place] [address] 2019-12-30 2019-12-30 Outpatient R [facility] [id number] Univers 12:45:00 12:45:00 ELYSE ity o f [facility] 2019-12-17 2019-12-17 Routine Akinpe, [facility] 1.2.381.850 [id number] Univers 09:50:07 10:51:34 Elyse C MECHANICAL TECHNICIAN 350.1.13.10 ity of Visit REGIONAL 4.2.7.2.686 Daniel as MATERNAL [id number] [address] 2019-12-17 2019-12-17 Outpatient R [facility] [id number] Univers 09:30:00 09:30:00 ELYSE omer alma delia ewing [facility] 2019-12-06 2019-12-06 Abstract [facility], [facility] 1.2.840.114 [id number] Univers 00:00:00 00:00:00 Elyse C MECHANICAL TECHNICIAN 350.1.13.10 ity of [facility] 4.2.7.2.686 Daniel as MATERNAL [id number] [facility] & CHILD [address] [place] [address] 2019-12-05 2019-12-05 Special Education Educational Assistant [facility]tras[facility] 1.2 .840.114 [id number] Univers 12:57:02 13:27:02 Visit Dank Benito MECHANICAL TECHNICIAN 350.1.13.10 ity of [facility] 4.2.7.2.686 Daniel as MATERNAL [id number] [facility] [address] [facility] 2019-11-29 2019-11-29 Routine Akinsipe, [facility] 1.2.236.915 [id number] Univers 13:30:34 14:00:19 Elyse C MECHANICAL TECHNICIAN 350.1.13.10 ity of Visit REGIONAL 4.2.7.2.686 Daniel as MATERNAL [id number] Med ical & CHILD [address] [place] [address] 2019-11-01 2019-11-13 Routine Anjupe, [facility] 1.2.422.588 [id number] Univers 12:46:05 14:07:26 Elyse C MECHANICAL TECHNICIAN 350.1.13.10 ity of Visit [facility]IONAL 4.2.7.2.686 Daniel as MATERNAL [id number] [facility] [address] [place] [address] 2019-11-13 2019-11-13 Special Education Educational Assistant Lab, [facility] 1.2.840. 114 [id number] Univers 13:52:18 14:07:18 Visit Akinsiminor Elyse C MECHANICAL TECHNICIAN 350.1.13. 10 ity of [facility] 4.2.7.2.686 Daniel as MATERNAL [id number] [facility] [address] [place] [address] 2019-11-13 2019-11-13 Telephone [facility] 1.2.840.114 [id number] Univers 00:00:00 00:00:00 Elyse C MECHANICAL TECHNICIAN 350.1.13.10 ity of [facility] 4.2.7.2.686 Daniel as MATERNAL [id number] [facility] & CHILD [address] [place] [address] 2019-11-12 2019-11-12 Abstract [facility] 1.2.840.114 [id number] Univers 00:00:00 00:00:00 Elyse C MECHANICAL TECHNICIAN 350.1.13.10 ity of [facility] 4.2.7.2.686 Daniel as MATERNAL [id number] [facility] [address] [place] [address] 2019-11-12 2019-11-12 Telephone [facility]ju[facility] 1.2.840.114 [id number] Univers 00:00:00 00:00:00 Elyse C MECHANICAL TECHNICIAN 350.1.13.10 ity of [facility] 4.2.7.2.686 Daniel as MATERNAL [id number] [facility] [address] [place] [address] Results Test Description Test Time Test Comments Results Result Comments Source POCT TEST 2023-02-28 19:23:00 Test Item Value Reference Range Interpretation Comme nts POCT PREG (test code = 1605) Positive On board controls acceptable with C Line (test code = 3574) Yes POCT PREG LOT # (test code = 3575) POCT PREG TEST DATE (test code = 3576) [facility] URINALYSIS W/O SPECIFIC [id number] 19:23:00 Test Item Value Reference Range Interpretation Comments POCT PH U (test code = 3254) 6 mg/dl 5-8 POCT U LEUK EST (test code = 1+ Negative - Negative 3263) POCT U NIT (test code = 3262) Neg Negative - Negative POCT U PROT (test code = 3259) Trace Negative - Negative POCT U GLU (test code = 3256) Neg Negative - Negative POCT U KETONE (test code = 3258) None Negative - Negative POCT U BLD (test code = 3257) Trace Negative - Negative [facility] [id number] 20:02:00 Test Item Value Reference Range Interpretation Comments POCT PREG (test code = 1605) Negative On board controls acceptable with C Yes Line (test code = 3574) POCT PREG LOT # (test code = 3575) POCT PREG TEST DATE (test code = 3576) [facility] [id number] 20:02:00 Test Item Value Reference Range Interpretation Comments POCT PREG (test code = 1605) Negative On board controls acceptable with C Yes Line (test code = 3574) POCT PREG LOT # (test code = 3575) POCT PREG TEST DATE (test code = 3576) [facility] [id number] 18:42:00 Test Item Value Reference Range Interpretation Comments POCT PREG (test code = 1605) Negative On board controls acceptable with C Yes Line (test code = 3574) POCT PREG LOT # (test code = 3575) POCT PREG TEST DATE (test code = 3576) [facility] [id number] 18:42:00 Test Item Value Reference Range Interpretation Comments POCT PREG (test code = 1605) Negative On board controls acceptable with C Yes Line (test code = 3574) POCT PREG LOT # (test code = 3575) POCT PREG TEST DATE (test code = 3576) [id number] 14:53:09 Test Item Value Reference Range Interpretation Comments Syphilis IgG/IgM (test Non-reactive Non-reactive code = 72179-2) MINE (test code = MINE) Non-reactive - No serologic evidence of T. pallidum infection. Cannot exclude incubating or early syphilis. Submit a second specimen in 2-4 weeks if syphilis is clinically suspected. Equivocal - Further testing to follow. Reactive - Further testing to follow. Lab Interpretation (test Normal code = 92452-6) [facility]-AB WITH [id number] 05:57:16 Test Item Value Reference Range Interpretation Comments HIV Negative Negative Semi-quantitative (test code = 80607-8) MINE (test code = Non-reactive for HIV-1 MINE) antigen and HIV-1/HIV-2 antibodies. ?No laboratory evidence of HIV infection. ?Repeat in 2-4 weeks if acute HIV infection is suspected. [facility]/O SPECIFIC [id number] 20:10:00 Test Item Value Reference Range Interpretation [...] code = 3257) large Negative - Negative [facility]
[2023-03-23] MEDS ORDERED: ONDANSETRON 4 MG (ODT) TAB ONE (13:47)
[2023-03-23 15:12] LABS: Specific Gravity > 1.030 (1.005-1.030); Urine Bacteria 20-50 /HPF (<20); Urine Bilirubin NEGATIVE (Negative); Urine Blood Negative (Negative); Urine Clarity Extremely Turbid (Clear); Urine Color Yellow (Yellow); Urine Glucose NEGATIVE (Negative); Urine Mucus 4+ /HPF (None Seen); Urine Protein 1+ (Negative); Urine RBC <5 /HPF (None Seen); Urine Urobilinogen Normal (Normal)
--- NOTE | 2023-03-23 15:21 | ER ---
Nurse's Notes [facility] Name: Angel Leonardo Age: 27 yrs Sex: Female : 1995 Arrival Date: 03/23/2023 Time: 12:23 Bed IW1 Private MD: Diagnosis: Vomiting;UTI/ Urinary tract infection, site not specified;Diarrhea, unspecified Presentation: 03/23 12:46 Chief complaint: Patient states: N/V/D since Monday night. Approximately 8 weeks ll1 , G 3, P2. + YEAGER, fatigue, and weakness. Coronavirus screen: Vaccine status: Patient reports receiving the 2nd dose of the covid vaccine. Client denies travel out of the [place] in the last 14 days. At this time, the client does not indicate any symptoms associated with coronavirus-19. Ebola Screen: Patient denies travel to an Ebola-affected area in the 21 days before illness onset. Initial Sepsis Screen: Does the patient meet any 2 criteria? No. Patient's initial sepsis screen is negative. Does the patient have a suspected source of infection? Yes: Acute abdominal pain. Risk Assessment: Do you want to hurt yourself or someone else? Patient reports no desire to harm self or others. Onset of symptoms was March 21, 2023. 12:46 Method Of Arrival: Ambulatory ll1 12:46 Acuity: AURELIO 3 ll1 Triage Assessment: 12:46 General: Appears uncomfortable, ill, Behavior is calm, cooperative, appropriate for ll1 age. Pain: Complains of pain in head Quality of pain is described as aching. Neuro: Reports headache weakness. GI: Reports cramping, diarrhea, nausea, vomiting. 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 - Social history:: Smoking status: Patient denies any tobacco usage or history of. Screenin:41 [facility] ED Fall Risk Assessment (Adult) Score/Fall Risk Level 0 - 2 = Low Risk ll1 Oriented to surroundings, Maintained a safe environment, Educated pt \T\ family on fall prevention, incl call for assistance when getting out of bed, Hourly rounding (assess needs \T\ fall precautionary measures) done. Abuse screen: Denies threats or abuse. Nutritional screening: No deficits noted. Tuberculosis screening: No symptoms or risk factors identified. Assessment: 13:50 Reassessment: No changes from previously documented assessment. Patient and/or family ll1 updated on plan of care and expected duration. Pain level reassessed. Patient is alert, oriented x 3, equal unlabored respirations, skin warm/dry/pink. 14:38 Reassessment: No changes from previously documented assessment. Patient and/or family ll1 updated on plan of care and expected duration. Pain level reassessed. Patient is alert, oriented x 3, equal unlabored respirations, skin warm/dry/pink. 14:51 Reassessment: No changes from previously documented assessment. Given water to obtain ll1 UA. 15:38 GI: Abdomen is non-distended. bp Vital Signs: 12:46 BP 122 / 86; Pulse 96; Resp 16; Temp 98.8(O); Pulse Ox 100% ; Height 5 ft. 7 in. ; Pain ll1 7/10; 12:46 Pain Scale: Adult ll1 ED Course: 12:26 Patient arrived in ED. rg4 12:34 [facility] 12:34 Leo Mullins MD is Attending Physician. [facility] 12:46 Arm band placed on. ll1 12:48 Triage completed. ll1 13:46 Influenza Screen (a \T\ B) Sent. ll1 13:46 SARS-COV-2 RT PCR Sent. ll1 14:22 SARS-COV-2 RT PCR Sent. ll1 14:22 Influenza Screen (a \T\ B) Sent. ll1 14:41 Patient has correct armband on for positive identification. Bed in low position. Call ll1 light in reach. Cardiac monitoring not applicable on this patient. 14:41 No provider procedures requiring assistance completed. Patient did not have IV access ll1 during this emergency room visit. 15:03 Urinalysis w/ reflexes Sent. ll1 Administered Medications: 13:46 Drug: Ondansetron PO 4 mg Route: PO; ll1 14:38 Follow up: Response: No adverse reaction; Nausea is decreased; RASS: Alert and Calm (0) ll1 Medication: 14:41 VIS not applicable for this client. ll1 Outcome: 15:21 Discharge ordered by MD. ford 15:38 Discharged to home ambulatory. bp 15:38 Condition: stable 15:38 Discharge instructions given to patient, Instructed on discharge instructions, follow up and referral plans. medication usage, Demonstrated understanding of instructions, follow-up care, medications, Prescriptions given X 2. 15:39 Patient left the ED. bp Signatures: Eh Flores PA PA jmm Garcia, Rubi rg4 Ruben Holloway, RN RN Priyanka Augustine RN RN ll1
--- NOTE | 2023-03-23 15:21 | EDPHYS ---
Physician Documentation [facility] Name: Angel Leonardo Age: 27 yrs Sex: Female : 1995 Arrival Date: 03/23/2023 Time: 12:23 Bed IW1 Private MD: ED Physician Leo Mullins HPI: 03/23 12:53 This 27 yrs old Female presents to ER via Ambulatory with complaints of jmm Vomiting/Diarrhea. 12:53 The patient presents to the emergency department with nausea, vomiting, diarrhea. jmm Onset: The symptoms/episode began/occurred gradually, 3 day(s) ago. Possible causes: sick contacts, Boyfriend. This is a 27-year-old female currently 8 weeks that presents emerged part with complaints of both nausea and vomiting. Denies vaginal bleeding.. 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 - Social history:: Smoking status: Patient denies any tobacco usage or history of. ROS: 12:53 Cardiovascular: Negative for chest pain, palpitations, and edema, Respiratory: Negative jmm for shortness of breath, cough, wheezing, and pleuritic chest pain. 12:53 Constitutional: Positive for body aches. 12:53 Abdomen/GI: Positive for nausea and vomiting, diarrhea. 12:53 All other systems are negative. Exam: 12:53 Constitutional: This is a well developed, well nourished patient who is awake, alert, jmm and in no acute distress. Head/Face: atraumatic. Eyes: EOMI, no conjunctival erythema appreciated ENT: Moist Mucus Membranes Neck: Trachea midline, Supple Chest/axilla: Normal chest wall appearance and motion. Cardiovascular: Regular rate and rhythm. No edema appreciated Respiratory: Normal respirations, no respiratory distress appreciated Abdomen/GI: Non distended Back: Normal ROM Skin: General appearance color normal 12:53 Musculoskeletal/extremity: ROM: intact in all extremities. 12:53 Skin: Appearance: Color: normal in color. 12:53 Neuro: Motor: is normal. 12:53 Psych: Behavior/mood is pleasant, cooperative. Vital Signs: 12:46 BP 122 / 86; Pulse 96; Resp 16; Temp 98.8(O); Pulse Ox 100% ; Height 5 ft. 7 in. ; Pain ll1 7/10; 12:46 Pain Scale: Adult ll1 MDM: 12:53 Patient medically screened. [facility] 16:21 Differential diagnosis: Gastroenteritis, viral syndrome, cholecystitis, appendicitis. [facility] Data reviewed: vital signs, nurses notes, lab test result(s). I considered the following discharge prescriptions or medication management in the emergency department Medications were administered in the Emergency Department. See MAR. Counseling: I had a detailed discussion with the patient and/or guardian regarding: the historical points, exam findings, and any diagnostic results supporting the discharge/admit diagnosis, lab results, the need for outpatient follow up, to return to the emergency department if symptoms worsen or persist or if there are any questions or concerns that arise at home. ED course: Patient states feeling much better after administration of medication. Patient vies follow-up PCP and otherwise given strict return precautions. Patient understood and agrees plan of care.. 03/23 12:54 Order name: SARS-COV-2 RT PCR; Complete Time: 14:43 [facility] 03/23 12:54 Order name: Influenza Screen (a \T\ B); Complete Time: 14:48 [facility] 03/23 12:54 Order name: Urinalysis w/ reflexes; Complete Time: 15:15 [facility] 03/23 15:16 Order name: Urine Culture EDMS Administered Medications: 13:46 Drug: Ondansetron PO 4 mg Route: PO; ll1 14:38 Follow up: Response: No adverse reaction; Nausea is decreased; RASS: Alert and Calm (0) ll1 Disposition Summary: 03/23/23 15:21 Discharge Ordered Location: Home [facility] Condition: Stable [facility] Diagnosis - Vomiting m - UTI/ Urinary tract infection, site not specified jmm - Diarrhea, unspecified [facility] Followup: [facility] - With: Private Physician - When: 1 - 2 days - Reason: Recheck today's complaints, Continuance of care, Re-evaluation by your physician Discharge Instructions: - Discharge Summary Sheet [facility] - Food Choices to Help Relieve Diarrhea, Adult jm - and Urinary Tract Infection [facility] Forms: - Medication Reconciliation Form [facility] - Thank You Letter jmm - Antibiotic Education jmm - Prescription Opioid Use [facility] Prescriptions: - ondansetron 4 mg Oral Tablet,disintegrating - take 1 tablet by ORAL route every 4-6 hours As needed; 30 tablet; Refills: 0, [facility] Product Selection Permitted - Cephalexin 500 mg Oral Capsule - take 1 capsule by ORAL route every 8 hours for 10 days; 30 capsule; Refills: 0, [facility] Product Selection Permitted Signatures: Dispatcher [employer] Eh Almazan PA PA jmm Lewis, Lynsay, RN RN ll1
[2023-03-23 16:27] VITALS: BP 122/86; TEMP 98.8; O2SAT 100
== END 2023-03-23 15:39 | disposition home or self-care (01) ==
LOC: ER 12:23
DX: O23.41 Unspecified infection of urinary tract in pregnancy, first trimester (principal); N39.0 Urinary tract infection, site not specified; O99.611 Diseases of the digestive system complicating pregnancy, first trimester; R11.10 Vomiting, unspecified; R19.7 Diarrhea, unspecified; Z3A.08 8 weeks gestation of pregnancy; Z20.822 Contact with and (suspected) exposure to COVID-19
CPT/HCPCS: 87088; 81001; 87086; 87635; 87804 ×2; 99283; Q0162

== ENCOUNTER → 2023-11-12 | Emergency (ER) | payer OTHER ==
--- OUTSIDE RECORDS SUMMARY | 2023-11-12 15:39 | XMS REPORT | Continuity of Care Document ---
Author Name Unknown Address [address] [facility] [place] [address] [facility] thconnect Address [address] [facility] [address] [place] [address] Care Team Providers Care Pull Through Hooker Name Role Phone Pcp, Patient Does Not Have A Primary Care Physic negrito JAMAICA BATISTA Attending Clinician Unavailable Jamaica Batista MD Attending Clinician [phone] Zoya Marcos MD Attending Clinician [phone] Bam Severino DO Attending Clinician [phone] Hortencia Turpin MD Attending Clinician [phone] BERYL FAGAN Attending Clinician Unavailable Zulay Todd CNM Attending Clinician ZULAY TODD Attending Clinician Unavaila ble LARA TABARES Attending Clinician Unavail able Lara Alfonso Attending Clinician + Doctor Unassigned, Raven Attending Clinician U navailANGELITA Gilbert Attending Clinician Unavailable Jordan Peace-Np/High Attending Clinician Unav ailable Angelita Ramos Attending Clinician Jordan Ann Temp Attending Clinician Alisha robbie Georges WEATHER OBSERVERFrancie Attending Clinician THAO MCNEIL Attending Clinician Unamelvina ailignacio Ultrasound, [facility] Attending Clinician UnavailThao Hope MD Attending Clinician + Madyson Lynn Attending Clinician [phone] Lab, [facility] Attending Clinician Unavailable 1, [facility] Attending Clinician Unavailab Margie Magana Attending Clinician Unavailabl e Dallin, Ang-charyan Attending Clinician Unavailable MARGIE MARISCAL Attending Clinician Unavailable Margie Mariscal MD Attending Clinician [phone] JOVAN REYNA Attending Clinician Unavailabl JOVAN Costa Attending Clinician Unavailabl yamilex SWAIN, Jovan Vizcaino Attending Clinician [phone] JOVAN CRUZ Attending Clinician Unavailabl e Carlene, [facility] Nurse Attending Clinician Unava Benjamin Andrade DO Attending Clinician [phone] Jovana Bob Attending Clinician + [phone] JOVANA HUGO Attending Clinician Unavailab Adriana Diaz MD Attending Clinician + Dank Benito MD Attending Clinician [phone] Venus Mack Attending Clinician + [phone] JAMAICA BATISTA Admitting Clinician Unavailable Jamaica Batista MD Admitting Clinician [phone] Adriana Sanabria MD Admitting Clinician + Payers Payer Name Policy Type Policy Number Effective Date Expirati on Date Source [facility] [id number] 2019 00:00:00 Problems Condition Name Condition Details Condition Category Status Onset Date Resolution Date Last Treatment Date Treating Clinician Comments Source 39 weeks gestation of 39 weeks gestation of Disease Active 10-22 00:00: 00 [facility] Tubal ligation status Tubal ligation status Disease Active 2022-10-14 00:00: 00 [facility] Heartburn during in third trimester Heartburn during in third trimester Disease Active 2022-10 1-14 00:00: 00 [facility] History of asthma History of asthma Disease Active 0 7-21 00:00: 00 [facility] Nausea and vomiting during Nausea and vomiting during Disease Active 0 5-16 00:00: 00 [facility] Well woman exam Well woman exam Disease Active 2021-10 2-27 00:00: 00 [facility] Iron deficiency anemia Iron deficiency anemia Disease Active 2021-10 1-10 00:00: 00 [facility] Oral contracept saadia pill surveillan ce Oral contracept saadia pill surveillan ce Disease Active 2021-10 1- 00:00: 00 [facility] Declines flu vaccine Declines flu vaccine Disease Active 2019-0 8-03 00:00: 00 [facility] Need for HPV vaccine Need for HPV vaccine Disease Active 0 8-03 00:00: 00 [facility] Anemia, Anemia, Disease Active 0 6-21 00:00: 00 [facility] (normal spontaneou s vaginal delivery) (normal spontaneou s vaginal delivery) Disease Active 2020-0 6-21 00:00: 00 [facility] Single live Single live Disease Active 20200 6-21 00:00: 00 [facility] Anemia of mother in , antepartum Anemia of mother in , antepartum Disease Active 2020-0 4-01 00:00: 00 [facility] Cramping affecting , antepartum Cramping affecting , antepartum Disease Active 2020-0 3-03 00:00: 00 [facility] Pain of round ligament during Pain of round ligament during Disease Active 2020-0 3-03 00:00: 00 [facility] Rubella non-immune status, antepartum Rubella non-immune status, antepartum Disease Active 2018-10 2-23 00:00: 00 Overview: Formattin g of this note might be different from the original. Address pp [facility] History of systemic lupus erythemato sharmaine (SLE) History of systemic lupus erythemato sharmaine (SLE) Disease Active 2018-10 00:00: 00 Overview: Formattin g of this note might be different from the original. Reports dx in 2016, but did not follow up [facility] History of lupus History of lupus Disease Active 2018-10 00:00: 00 Overview: Formattin g of this note might be different from the original. Reports dx in 2016, but did not follow up [facility] History of depression History of depression Disease Active 02-22 00:00: 00 [facility] Allergies, Adverse Reactions, Alerts Allergy Name Allergy Type Status Severity Reaction(s) Onset Date Inactive Date Treating Clinician Comments Source NO KNOWN ALLERGIE S Drug Class Active [facility] Social History Social Habit Start Date Stop Date Quantity Comments Source ASSERTION 2023-02-05 00:00:00 [facility] History of tobacco use Cigarette Smoker [facility] Gender identity [facility] Sexual orientation U [facility] History SDOH Alcohol Frequency [facility] History SDOH Alcohol Std Drinks [facility] History SDOH Alcohol Binge [facility] Alcohol intake 2023-10-24 00:00:00 2023-10-24 00:00:00 Ex-drinker (finding) [facility] Exposure to SARS-CoV-2 (event) 2023-02-18 00:00:00 2023-02-28 14:24:00 Not sure [facility] Tobacco Comment 2023-02-28 00:00:00 2023-02-28 00:00:00 Stopped for . Not an everyday smoker, only social. [facility] History of Social function 2023-02-28 00:00:00 2023-02-28 00:00:00 [facility] Tobacco use and exposure 2023-02-28 00:00:00 2023-02-28 00:00:00 Smokeless tobacco non-user [facility] Alcohol Comment 2017-02-22 00:00:00 2017-02-22 00:00:00 occasionally [facility] Sex Assigned At 1995 00:00:00 1995 00:00:00 [facility] Smoking Status Start Date Stop Date Source Ex-smoker 2023-02-28 00:00:00 2023-02-28 00:00:00 U [facility] Never smoked tobacco [facility] Medications Ordered Medication Name Filled Medication Name Start Date Stop Date Current Medication? Ordering Clinician Indication Dosage Frequency Signature (SIG) Comments Components Source vitamin w/FA tablet 10-25 00:00: 00 Yes [id number] 1{tbl} Take 1 tablet by mouth in the morning. [facility] docusate 100 mg capsule 10-25 00:00: 00 Yes [id number] 200mg Take 2 capsules by mouth once daily as needed for Constipati on. [facility] ferrous sulfate 325 mg (65 mg iron) tablet 10-25 00:00: 00 Yes [id number] 325mg Take 1 tablet by mouth in the morning and 1 tablet in the evening. [facility] ibuprofen 600 mg tablet 10-25 00:00: 00 Yes [id number] 600mg Take 1 tablet by mouth every 6 (six) hours as needed (Pain). Take with food or milk. [facility] sodium citrate-cit lita acid (BICITRA) 500-334 mg/5 mL solution 30 mL 10-23 14:45: 00 10-23 14:01 :00 No 30mL 30 mL, Oral, ONCE, 1 dose, On Mon10/23/23 at 0845, Routine [facility] ketorolac (TORADOL) injection 15 mg 10-23 14:44: 32 10-28 05:59 :00 Yes 15mg 15 mg, Slow IV Push, Q6HPRN, 4 doses, Starting on Mon10/23/23 at 0844, Until Mon10/27/23 at 2359, Routine, Pain (scale 1-3) [facility] ketorolac (TORADOL) injection 15 mg 10-23 14:44: 32 10-28 05:59 :00 Yes 15mg 15 mg, Slow IV Push, Q6HPRN, 4 doses, Starting on Mon10/23/23 at 0844, Until Mon10/27/23 at 2359, Routine, Pain (scale 1-3) [facility] naloxone (NARCAN) injection 0.2 mg 10-23 14:43: 29 Yes .2mg 0.2 mg, Intramuscu lar, Q3HPRN, Starting on Mon10/23/23 at 0843, Until Discontinu ed, Routine, Itching [facility] diphenhydrA MINE (BENADRYL) tablet 25 mg 10-23 14:43: 29 Yes 25mg 25 mg, Oral, Q4HPRN, Starting on Mon10/23/23 at 0843, Until Discontinu ed, Routine, Itching [facility] naloxone (NARCAN) injection 0.2 mg 10-23 14:43: 29 Yes .2mg 0.2 mg, Intramuscu lar, Q3HPRN, Starting on Mon10/23/23 at 0843, Until Discontinu ed, Routine, Itching [facility] diphenhydrA MINE (BENADRYL) tablet 25 mg 10-23 14:43: 29 Yes 25mg 25 mg, Oral, Q4HPRN, Starting on Mon10/23/23 at 0843, Until Discontinu ed, Routine, Itching [facility] naloxone (NARCAN) injection 0.4 mg 10-23 14:43: 29 10-25 14:42 :29 Yes .4mg 0.4 mg, Slow IV Push, PRN - SEE INSTRUCTIO NS, Starting on Mon10/23/23 at 0843, Until Mon10/25/23 at 0842, Routine, Sedation/R espiratory Depression , Analgesia recovery [facility] HYDROcodone -acetaminop hen (NORCO 5) 5-325 mg tablet 2 tablet 10-23 14:06: 16 Yes 2{tbl} 2 tablet, Oral, Q6HPRN, Starting on Mon10/23/23 at 0806, Until Discontinu ed, Routine, Pain (scale 7-10) [facility] HYDROcodone -acetaminop hen (NORCO 5) 5-325 mg tablet 2 tablet 10-23 14:06: 16 Yes 2{tbl} 2 tablet, Oral, Q6HPRN, Starting on Mon10/23/23 at 0806, Until Discontinu ed, Routine, Pain (scale 7-10) [facility] HYDROcodone -acetaminop hen (NORCO 5) 5-325 mg tablet 1 tablet 10-23 14:06: 12 Yes 1{tbl} 1 tablet, Oral, Q6HPRN, Starting on Mon10/23/23 at 0806, Until Discontinu ed, Routine, Pain (scale 4-6) [facility] HYDROcodone -acetaminop hen (NORCO 5) 5-325 mg tablet 1 tablet 10-23 14:06: 12 Yes 1{tbl} 1 tablet, Oral, Q6HPRN, Starting on Mon10/23/23 at 0806, Until Discontinu ed, Routine, Pain (scale 4-6) [facility] rho(D) immune globulin (RHOGAM) syringe 300 mcg 10-23 11:33: 18 Yes 300ug 300 mcg, Intramuscu lar, ONCE, For 1 dose, Conditiona l, Routine [facility] rho(D) immune globulin (RHOGAM) syringe 300 mcg 10-23 11:33: 18 Yes 300ug 300 mcg, Intramuscu lar, ONCE, For 1 dose, Conditiona l, Routine [facility] ibuprofen (IBU) tablet 600 mg 10-23 11:33: 15 Yes 600mg 600 mg, Oral, Q6HPRN, Starting on Mon10/23/23 at 0533, Until Discontinu ed, Routine, Pain (scale 4-6) [facility] acetaminoph en (TYLENOL) tablet 650 mg 10-23 11:33: 15 Yes 650mg 650 mg, Oral, Q6HPRN, Starting on Mon10/23/23 at 0533, Until Discontinu ed, Routine, Pain (scale 1-3) [facility] diphenhydrA MINE (BENADRYL) tablet 25 mg 10-23 11:33: 15 Yes 25mg 25 mg, Oral, Q6HPRN, Starting on Mon10/23/23 at 0533, Until Discontinu ed, Routine, Sleep, Itching [facility] ondansetron (ZOFRAN (PF)) injection 4 mg 10-23 11:33: 15 Yes 4mg 4 mg, Slow IV Push, Q8HPRN, Starting on Mon10/23/23 at 0533, Until Discontinu ed, Routine, Nausea and Vomiting (N/V) [facility] simethicone (GAS RELIEF (SIMETHICON E)) chewable tablet 160 mg 10-23 11:33: 15 Yes 160mg 160 mg, Oral, PC+HSPRN, Starting on Mon10/23/23 at 0533, Until Discontinu ed, Routine, Gas [facility] docusate (COLACE) capsule 200 mg 10-23 11:33: 15 Yes 200mg 200 mg, Oral, QDAILYPRN, Starting on Mon10/23/23 at 0533, Until Discontinu ed, Routine, Constipati on [facility] magnesium hydroxide (MILK OF MAGNESIA) 400 mg/5 mL suspension 30 mL 10-23 11:33: 15 Yes 30mL 30 mL, Oral, QDAILYPRN, Starting on Mon10/23/23 at 0533, Until Discontinu ed, Routine, Constipati on [facility] benzocaine- menthol (DERMOPLAST ) 20-0.5 % topical spray 10-23 11:33: 15 Yes Topical, PRN, Starting on Mon10/23/23 at 0533, Until Discontinu ed, Routine, Perineum discomfort [facility] ibuprofen (IBU) tablet 600 mg 10-23 11:33: 15 Yes 600mg 600 mg, Oral, Q6HPRN, Starting on Mon10/23/23 at 0533, Until Discontinu ed, Routine, Pain (scale 4-6) [facility] acetaminoph en (TYLENOL) tablet 650 mg 10-23 11:33: 15 Yes 650mg 650 mg, Oral, Q6HPRN, Starting on Mon10/23/23 at 0533, Until Discontinu ed, Routine, Pain (scale 1-3) [facility] diphenhydrA MINE (BENADRYL) tablet 25 mg 10-23 11:33: 15 Yes 25mg 25 mg, Oral, Q6HPRN, Starting on Mon10/23/23 at 0533, Until Discontinu ed, Routine, Sleep, Itching [facility] ondansetron (ZOFRAN (PF)) injection 4 mg 10-23 11:33: 15 Yes 4mg 4 mg, Slow IV Push, Q8HPRN, Starting on Mon10/23/23 at 05, Until Discontinu ed, Routine, Nausea and Vomiting (N/V) [facility] simethicone (GAS RELIEF (SIMETHICON E)) chewable tablet 160 mg 10-23 11:33: 15 Yes 160mg 160 mg, Oral, PC+HSPRN, Starting on Mon10/23/23 at 0533, Until Discontinu ed, Routine, Gas [facility] docusate (COLACE) capsule 200 mg 10-23 11:33: 15 Yes 200mg 200 mg, Oral, QDAILYPRN, Starting on Mon10/23/23 at 0533, Until Discontinu ed, Routine, Constipati on [facility] magnesium hydroxide (MILK OF MAGNESIA) 400 mg/5 mL suspension 30 mL 10-23 11:33: 15 Yes 30mL 30 mL, Oral, QDAILYPRN, Starting on Mon10/23/23 at 0533, Until Discontinu ed, Routine, Constipati on [facility] benzocaine- menthol (DERMOPLAST ) 20-0.5 % topical spray 10-23 11:33: 15 Yes Topical, PRN, Starting on Mon10/23/23 at 0533, Until Discontinu ed, Routine, Perineum discomfort [facility] lactated ringers IV infusion 1,000 mL 10-23 08:00: 00 10-23 09:50 :37 No 1000mL at 125 mL/hr, 1,000 mL, IV Infusion, ONCE, 1 dose, On Mon10/23/23 at 0200, VIVEK [facility] ondansetron (ZOFRAN (PF)) injection 4 mg 10-23 03:30: 00 10-23 02:51 :00 No 4mg 4 mg, Slow IV Push, ONCE, On Mon10/22/23 at 2130, For 1 dose
Do ses of ondansetro n 16 mg and above need to be administer ed via IV piggyback. For Dose >=24mg ECG monitoring is advisable.
[facility] ropivacaine 0.2 % (NAROPIN (PF)) epidural infusion 10-23 02:01: 00 10-23 09:10 :54 No Epidural, CONTINUOUS PRN, Starting on Mon10/22/23 at 2000, Until Mon10/23/23 at 309, Routine, Intra-op [facility] lidocaine-e pinephrine (XYLOCAINE W/EPINEPHRI NE) 1.5 %-1:200,000 injection 10-23 02:00: 00 10-23 09:10 :54 No Epidural, ONCE INTRA PROCEDURE, Starting on Mon10/22/23 at 1999, Until Mon10/23/23 at 309, Routine, Intra-op [facility] lidocaine 1% (XYLOCAINE) 100 mg/10 mL (1 %) injection 10-23 01:58: 00 10-23 09:10 :54 No Infiltrati on, ONCE INTRA PROCEDURE, Starting on Mon10/22/23 at 1958, Until Mon10/23/23 at 031, Routine, Intra-op [facility] morpHINE (2 mg/mL) injection 4 mg 10-23 01:00: 00 10-23 00:15 :00 No 4mg 4 mg, Slow IV Push, ONCE, 1 dose, On Mon10/22/23 at 1900, Routine [facility] HYDROcodone -acetaminop hen 5-325 mg tablet 10-23 00:00: 00 10-31 05:59 :00 Yes [id number] 1{tbl} Take 1 tablet by mouth every 6 (six) hours as needed for Pain (scale 7-10) for up to 7 days. Indication s: acute pain [facility] HYDROcodone -acetaminop hen 5-325 mg tablet 10-23 00:00: 00 10-31 05:59 :00 Yes [id number] 1{tbl} Take 1 tablet by mouth every 6 (six) hours as needed for Pain (scale 7-10) for up to 7 days. Indication s: acute pain [facility] oxytocin (PITOCIN) 30 units in NS 500 mL IV infusion 10-22 19:37: 03 10-24 01:13 :41 No 2mU/min at 2-40 mL/hr, IV Infusion, TITRATE, Starting on Mon10/22/23 at 1337, Until Mon10/23/23 at 1913, VIVEK [facility] lactated ringers IV infusion 500 mL 10-22 19:36: 28 10-24 01:13 :41 No 500mL at 999 mL/hr, 500 mL, IV Infusion, PRN - SEE INSTRUCTIO NS, Starting on Mon10/22/23 at 1336, Until Mon10/23/23 at 1913, Routine [facility] D5W-LR IV infusion 1,000 mL 10-22 19:36: 28 10-24 01:13 :41 No 1000mL at 1-125 mL/hr, IV Infusion, TITRATE, Starting on Mon10/22/23 at 1336, Until Mon10/23/23 at 1913, Routine [facility] sodium citrate-cit lita acid (BICITRA) 500-334 mg/5 mL solution 30 mL 10-22 19:36: 28 10-23 01:58 :00 No 30mL 30 mL, Oral, PRE-PROCED URE ONCE, 1 dose, Starting on Mon10/22/23 at 1336, Until Discontinu ed, Routine, Surgery/Pr ocedure [facility] albuterol 90 mcg/actuati on inhaler 2022-10 00:00: 00 Yes [id number] 2{puff} Inhale 2 Puffs every 6 (six) hours as needed for Wheezing, Shortness of Breath or Chest tightness. [facility] albuterol 90 mcg/actuati on inhaler 2022-10 00:00: 00 Yes [id number] 2{puff} Inhale 2 Puffs every 6 (six) hours as needed for Wheezing, Shortness of Breath or Chest tightness. [facility] albuterol 90 mcg/actuati on inhaler 2022-10 00:00: 00 Yes [id number] 2{puff} Inhale 2 Puffs every 6 (six) hours as needed for Wheezing, Shortness of Breath or Chest tightness. [facility] albuterol 90 mcg/actuati on inhaler 2022-10 00:00: 00 Yes [id number] 2{puff} Inhale 2 Puffs every 6 (six) hours as needed for Wheezing, Shortness of Breath or Chest tightness. [facility] albuterol 90 mcg/actuati on inhaler 2022-10 00:00: 00 Yes [id number] 2{puff} Inhale 2 Puffs every 6 (six) hours as needed for Wheezing, Shortness of Breath or Chest tightness. [facility] albuterol 90 mcg/actuati on inhaler 2022-10 00:00: 00 Yes [id number] 2{puff} Inhale 2 Puffs every 6 (six) hours as needed for Wheezing, Shortness of Breath or Chest tightness. [facility] albuterol 90 mcg/actuati on inhaler 2022-10 00:00: 00 Yes [id number] 2{puff} Inhale 2 Puffs every 6 (six) hours as needed for Wheezing, Shortness of Breath or Chest tightness. [facility] albuterol 90 mcg/actuati on inhaler 2022-10 00:00: 00 Yes [id number] 2{puff} Inhale 2 Puffs every 6 (six) hours as needed for Wheezing, Shortness of Breath or Chest tightness. [facility] albuterol 90 mcg/actuati on inhaler 2022-10 2 00:00: 00 Yes [id number] 2{puff} Inhale 2 Puffs every 6 (six) hours as needed for Wheezing, Shortness of Breath or Chest tightness. [facility] albuterol 90 mcg/actuati on inhaler 2022-10 2 00:00: 00 Yes [id number] 2{puff} Inhale 2 Puffs every 6 (six) hours as needed for Wheezing, Shortness of Breath or Chest tightness. [facility] famotidine (PEPCID) 20 mg tablet 2022-10 00:00: 00 Yes [id number] 20mg Take 1 tablet by mouth in the morning and 1 tablet in the evening. [facility] famotidine (PEPCID) 20 mg tablet 2022-10 00:00: 00 Yes [id number] 20mg Take 1 tablet by mouth in the morning and 1 tablet in the evening. [facility] famotidine (PEPCID) 20 mg tablet 2022-10 00:00: 00 Yes [id number] 20mg Take 1 tablet by mouth in the morning and 1 tablet in the evening. [facility] famotidine (PEPCID) 20 mg tablet 2022-10 00:00: 00 Yes [id number] 20mg Take 1 tablet by mouth in the morning and 1 tablet in the evening. [facility] famotidine (PEPCID) 20 mg tablet 2022-10 00:00: 00 Yes [id number] 20mg Take 1 tablet by mouth in the morning and 1 tablet in the evening. [facility] famotidine (PEPCID) 20 mg tablet 2022-10 00:00: 00 Yes [id number] 20mg Take 1 tablet by mouth in the morning and 1 tablet in the evening. [facility] famotidine (PEPCID) 20 mg tablet 2022-10 00:00: 00 Yes [id number] 20mg Take 1 tablet by mouth in the morning and 1 tablet in the evening. [facility] famotidine (PEPCID) 20 mg tablet 2022-10 00:00: 00 Yes [id number] 20mg Take 1 tablet by mouth in the morning and 1 tablet in the evening. [facility] famotidine (PEPCID) 20 mg tablet 2022-10 0 00:00: 00 Yes [id number] 20mg Take 1 tablet by mouth in the morning and 1 tablet in the evening. [facility] famotidine (PEPCID) 20 mg tablet 2022-10 0 00:00: 00 Yes [id number] 20mg Take 1 tablet by mouth in the morning and 1 tablet in the evening. [facility] famotidine (PEPCID) 20 mg tablet 2022-10 0 00:00: 00 Yes [id number] 20mg Take 1 tablet by mouth in the morning and 1 tablet in the evening. [facility] famotidine (PEPCID) 20 mg tablet 2022-10 0 00:00: 00 Yes [id number] 20mg Take 1 tablet by mouth in the morning and 1 tablet in the evening. [facility] famotidine (PEPCID) 20 mg tablet 2022-10 00:00: 00 Yes [id number] 20mg Take 1 tablet by mouth in the morning and 1 tablet in the evening. [facility] famotidine (PEPCID) 20 mg tablet 2022-10 00:00: 00 Yes [id number] 20mg Take 1 tablet by mouth in the morning and 1 tablet in the evening. [facility] famotidine (PEPCID) 20 mg tablet 2022-10 0 00:00: 00 Yes [id number] 20mg Take 1 tablet by mouth in the morning and 1 tablet in the evening. [facility] Iron Fum & P-FA-Vit B & C No.9 (INTEGRA PLUS) 125 mg iron- 1 mg Cap 2022-10 0 00:00: 00 Yes [id number] 1{capsu le} Take 1 capsule by mouth in the morning. [facility] Iron Fum & P-FA-Vit B & C No.9 (INTEGRA PLUS) 125 mg iron- 1 mg Cap 2022-10 0 00:00: 00 Yes [id number] 1{capsu le} Take 1 capsule by mouth in the morning. [facility] Iron Fum & P-FA-Vit B & C No.9 (INTEGRA PLUS) 125 mg iron- 1 mg Cap 2023-1 0-13 00:00: 00 Yes [id number] 1{capsu le} Take 1 capsule by mouth in the morning. [facility] Iron Fum & P-FA-Vit B & C No.9 (INTEGRA PLUS) 125 mg iron- 1 mg Cap 2023-1 0-13 00:00: 00 Yes [id number] 1{capsu le} Take 1 capsule by mouth in the morning. [facility] Iron Fum & P-FA-Vit B & C No.9 (INTEGRA PLUS) 125 mg iron- 1 mg Cap 2023-1 0-13 00:00: 00 Yes [id number] 1{capsu le} Take 1 capsule by mouth in the morning. [facility] Iron Fum & P-FA-Vit B & C No.9 (INTEGRA PLUS) 125 mg iron- 1 mg Cap 2023-1 0-13 00:00: 00 Yes [id number] 1{capsu le} Take 1 capsule by mouth in the morning. [facility] Iron Fum & P-FA-Vit B & C No.9 (INTEGRA PLUS) 125 mg iron- 1 mg Cap 3-1 0-13 00:00: 00 Yes [id number] 1{capsu le} Take 1 capsule by mouth in the morning. [facility] Iron Fum & P-FA-Vit B & C No.9 (INTEGRA PLUS) 125 mg iron- 1 mg Cap 2023-1 0-13 00:00: 00 Yes [id number] 1{capsu le} Take 1 capsule by mouth in the morning. [facility] Iron Fum & P-FA-Vit B & C No.9 (INTEGRA PLUS) 125 mg iron- 1 mg Cap 2023-1 0-13 00:00: 00 Yes [id number] 1{capsu le} Take 1 capsule by mouth in the morning. [facility] Iron Fum & P-FA-Vit B & C No.9 (INTEGRA PLUS) 125 mg iron- 1 mg Cap 2023-1 0-13 00:00: 00 Yes [id number] 1{capsu le} Take 1 capsule by mouth in the morning. [facility] Iron Fum & P-FA-Vit B & C No.9 (INTEGRA PLUS) 125 mg iron- 1 mg Cap 2022-1 0-13 00:00: 00 Yes [id number] 1{capsu le} Take 1 capsule by mouth in the morning. [facility] Iron Fum & P-FA-Vit B & C No.9 (INTEGRA PLUS) 125 mg iron- 1 mg Cap 2022-1 0-13 00:00: 00 Yes [id number] 1{capsu le} Take 1 capsule by mouth in the morning. [facility] Iron Fum & P-FA-Vit B & C No.9 (INTEGRA PLUS) 125 mg iron- 1 mg Cap 2022-1 0-13 00:00: 00 Yes [id number] 1{capsu le} Take 1 capsule by mouth in the morning. [facility] Iron Fum & P-FA-Vit B & C No.9 (INTEGRA PLUS) 125 mg iron- 1 mg Cap 2022-1 0-13 00:00: 00 Yes [id number] 1{capsu le} Take 1 capsule by mouth in the morning. [facility] Iron Fum & P-FA-Vit B & C No.9 (INTEGRA PLUS) 125 mg iron- 1 mg Cap 2022-1 0-13 00:00: 00 Yes [id number] 1{capsu le} Take 1 capsule by mouth in the morning. [facility] Iron Fum & P-FA-Vit B & C No.9 (INTEGRA PLUS) 125 mg iron- 1 mg Cap 2022-1 0-13 00:00: 00 10-25 00:00 :00 No [id number] 1{capsu le} Take 1 capsule by mouth in the morning. [facility] PNV 67-iron ps-folate no.1-dha (VITAFOL ULTRA) 29 mg iron- 1 mg-200 mg Cap 2022-0 8-03 00:00: 00 11-15 05:59 :00 No [id number] 1{tbl} Take 1 tablet by mouth in the morning for 180 days. [facility] PNV 67-iron ps-folate no.1-dha (VITAFOL ULTRA) 29 mg iron- 1 mg-200 mg Cap 2022-0 8-03 00:00: 00 11-15 05:59 :00 No [id number] 1{tbl} Take 1 tablet by mouth in the morning for 180 days. [facility] PNV 67-iron ps-folate no.1-dha (VITAFOL ULTRA) 29 mg iron- 1 mg-200 mg Cap 2022-0 8-03 00:00: 00 11-15 05:59 :00 No [id number] 1{tbl} Take 1 tablet by mouth in the morning for 180 days. [facility] 67-iron ps-folate no.1-dha (VITAFOL ULTRA) 29 mg iron- 1 mg-200 mg Cap 2022-0 8-03 00:00: 00 11-15 05:59 :00 No [id number] 1{tbl} Take 1 tablet by mouth in the morning for 180 days. [facility] 67-iron ps-folate no.1-dha (VITAFOL ULTRA) 29 mg iron- 1 mg-200 mg Cap 2022-0 8-03 00:00: 00 11-15 05:59 :00 No [id number] 1{tbl} Take 1 tablet by mouth in the morning for 180 days. [facility] 67-iron ps-folate no.1-dha (VITAFOL ULTRA) 29 mg iron- 1 mg-200 mg Cap 2022-0 8-03 00:00: 00 11-15 05:59 :00 No [id number] 1{tbl} Take 1 tablet by mouth in the morning for 180 days. [facility] 67-iron ps-folate no.1-dha (VITAFOL ULTRA) 29 mg iron- 1 mg-200 mg Cap 3-0 8-03 00:00: 00 11-15 05:59 :00 No [id number] 1{tbl} Take 1 tablet by mouth in the morning for 180 days. [facility] 67-iron ps-folate no.1-dha (VITAFOL ULTRA) 29 mg iron- 1 mg-200 mg Cap 3-0 8-03 00:00: 00 11-15 05:59 :00 No [id number] 1{tbl} Take 1 tablet by mouth in the morning for 180 days. [facility] 67-iron ps-folate no.1-dha (VITAFOL ULTRA) 29 mg iron- 1 mg-200 mg Cap 2022-0 8-03 00:00: 00 11-15 05:59 :00 No [id number] 1{tbl} Take 1 tablet by mouth in the morning for 180 days. [facility] 67-iron ps-folate no.1-dha (VITAFOL ULTRA) 29 mg iron- 1 mg-200 mg Cap 2022-0 8-03 00:00: 00 11-15 05:59 :00 No [id number] 1{tbl} Take 1 tablet by mouth in the morning for 180 days. [facility] 67-iron ps-folate no.1-dha (VITAFOL ULTRA) 29 mg iron- 1 mg-200 mg Cap 2022-0 8-03 00:00: 00 11-15 05:59 :00 No [id number] 1{tbl} Take 1 tablet by mouth in the morning for 180 days. [facility] 67-iron ps-folate no.1-dha (VITAFOL ULTRA) 29 mg iron- 1 mg-200 mg Cap 2022-0 8-03 00:00: 00 11-15 05:59 :00 No [id number] 1{tbl} Take 1 tablet by mouth in the morning for 180 days. [facility] 67-iron ps-folate no.1-dha (VITAFOL ULTRA) 29 mg iron- 1 mg-200 mg Cap 3-0 8-03 00:00: 00 11-15 05:59 :00 No [id number] 1{tbl} Take 1 tablet by mouth in the morning for 180 days. [facility] 67-iron ps-folate no.1-dha (VITAFOL ULTRA) 29 mg iron- 1 mg-200 mg Cap 3-0 8-03 00:00: 00 11-15 05:59 :00 No [id number] 1{tbl} Take 1 tablet by mouth in the morning for 180 days. [facility] 67-iron ps-folate no.1-dha (VITAFOL ULTRA) 29 mg iron- 1 mg-200 mg Cap 3-0 8-03 00:00: 00 11-15 05:59 :00 No [id number] 1{tbl} Take 1 tablet by mouth in the morning for 180 days. [facility] 67-iron ps-folate no.1-dha (VITAFOL ULTRA) 29 mg iron- 1 mg-200 mg Cap 3-0 8-03 00:00: 00 11-15 05:59 :00 No [id number] 1{tbl} Take 1 tablet by mouth in the morning for 180 days. [facility] 67-iron ps-folate no.1-dha (VITAFOL ULTRA) 29 mg iron- 1 mg-200 mg Cap 3-0 8-03 00:00: 00 11-15 05:59 :00 No [id number] 1{tbl} Take 1 tablet by mouth in the morning for 180 days. [facility] 67-iron ps-folate no.1-dha (VITAFOL ULTRA) 29 mg iron- 1 mg-200 mg Cap 3-0 8-03 00:00: 00 11-15 05:59 :00 No [id number] 1{tbl} Take 1 tablet by mouth in the morning for 180 days. [facility] 67-iron ps-folate no.1-dha (VITAFOL ULTRA) 29 mg iron- 1 mg-200 mg Cap 3-0 8-03 00:00: 00 11-15 05:59 :00 No [id number] 1{tbl} Take 1 tablet by mouth in the morning for 180 days. [facility] 67-iron ps-folate no.1-dha (VITAFOL ULTRA) 29 mg iron- 1 mg-200 mg Cap 2023-0 8-03 00:00: 00 11-15 05:59 :00 No [id number] 1{tbl} Take 1 tablet by mouth in the morning for 180 days. [facility] 67-iron ps-folate no.1-dha (VITAFOL ULTRA) 29 mg iron- 1 mg-200 mg Cap 3-0 8-03 00:00: 00 11-15 05:59 :00 No [id number] 1{tbl} Take 1 tablet by mouth in the morning for 180 days. [facility] 67-iron ps-folate no.1-dha (VITAFOL ULTRA) 29 mg iron- 1 mg-200 mg Cap 2022-0 8-03 00:00: 00 11-15 05:59 :00 No [id number] 1{tbl} Take 1 tablet by mouth in the morning for [facility] days. [facility]-folate no.1-dha (VITAFOL ULTRA) 29 mg iron- 1 mg-200 mg Cap 2022-0 8-03 00:00: 00 11-15 05:59 :00 No [id number] 1{tbl} Take 1 tablet by mouth in the morning for 180 days. [facility] 67-iron ps-folate no.1-dha (VITAFOL ULTRA) 29 mg iron- 1 mg-200 mg Cap 2022-0 8-03 00:00: 00 11-15 05:59 :00 No [id number] 1{tbl} Take 1 tablet by mouth in the morning for 180 days. [facility] 67-iron ps-folate no.1-dha (VITAFOL ULTRA) 29 mg iron- 1 mg-200 mg Cap 3-0 8-03 00:00: 00 11-15 05:59 :00 No [id number] 1{tbl} Take 1 tablet by mouth in the morning for 180 days. [facility] 67-iron ps-folate no.1-dha (VITAFOL ULTRA) 29 mg iron- 1 mg-200 mg Cap 2022-0 8-03 00:00: 00 11-15 05:59 :00 No [id number] 1{tbl} Take 1 tablet by mouth in the morning for 180 days. [facility] 67-iron ps-folate no.1-dha (VITAFOL ULTRA) 29 mg iron- 1 mg-200 mg Cap 2023-0 8-03 00:00: 00 10-25 00:00 :00 No [id number] 1{tbl} Take 1 tablet by mouth in the morning for 180 days. [facility] 67-iron ps-folate no.1-dha (VITAFOL ULTRA) 29 mg iron- 1 mg-200 mg Cap 3-0 6-15 00:00: 00 04-30 04:59 :00 No [id number] 1{tbl} Take 1 tablet by mouth in the morning for 30 days. [facility] 67-iron ps-folate no.1-dha (VITAFOL ULTRA) 29 mg iron- 1 mg-200 mg Cap 2022-0 6-15 00:00: 00 04-30 04:59 :00 No [id number] 1{tbl} Take 1 tablet by mouth in the morning for 30 days. [facility] 67-iron ps-folate no.1-dha (VITAFOL ULTRA) 29 mg iron- 1 mg-200 mg Cap 3-0 6-15 00:00: 00 04-30 04:59 :00 No [id number] 1{tbl} Take 1 tablet by mouth in the morning for 30 days. [facility] 67-iron ps-folate no.1-dha (VITAFOL ULTRA) 29 mg iron- 1 mg-200 mg Cap 3-0 6-15 00:00: 00 04-30 04:59 :00 No [id number] 1{tbl} Take 1 tablet by mouth in the morning for 30 days. [facility] 67-iron ps-folate no.1-dha (VITAFOL ULTRA) 29 mg iron- 1 mg-200 mg Cap 3-0 6-15 00:00: 00 04-30 04:59 :00 No [id number] 1{tbl} Take 1 tablet by mouth in the morning for 30 days. [facility] 67-iron ps-folate no.1-dha (VITAFOL ULTRA) 29 mg iron- 1 mg-200 mg Cap 2022-0 6-15 00:00: 00 04-30 04:59 :00 No [id number] 1{tbl} Take 1 tablet by mouth in the morning for 30 days. [facility] 67-iron ps-folate no.1-dha (VITAFOL ULTRA) 29 mg iron- 1 mg-200 mg Cap 0 6-15 00:00: 00 04-30 04:59 :00 No [id number] 1{tbl} Take 1 tablet by mouth in the morning for 30 days. [facility] 67-iron ps-folate no.1-dha (VITAFOL ULTRA) 29 mg iron- 1 mg-200 mg Cap 0 03-30 00:00: 00 04-30 04:59 :00 No [id number] 1{tbl} Take 1 tablet by mouth in the morning for 30 days. [facility] 67-iron ps-folate no.1-dha (VITAFOL ULTRA) 29 mg iron- 1 mg-200 mg Cap -15 00:00: 00 04-30 04:59 :00 No [id number] 1{tbl} Take 1 tablet by mouth in the morning for 30 days. [facility] 67-iron ps-folate no.1-dha (VITAFOL ULTRA) 29 mg iron- 1 mg-200 mg Cap 2022-0 -15 00:00: 00 04-30 04:59 :00 No [id number] 1{tbl} Take 1 tablet by mouth in the morning for 30 days. [facility] raheem rabagoestrad ioL-iron (,) 1.5 mg-30 mcg (21)/75 mg (7) per tablet 2021-10 0-05 00:00: 00 Yes [id number] 1{tbl} Take 1 tablet by mouth in the morning. [facility] karlandro ne-e.estrad ioL-iron (JUNEL FE 1.03/14, 28,) 1.5 mg-30 mcg (21)/75 mg (7) per tablet 2021-10 0-05 00:00: 00 Yes [id number] 1{tbl} Take 1 tablet by mouth in the morning. [facility] ioL-iron (JUNEL FE 1.03/14, 28,) 1.5 mg-30 mcg (21)/75 mg (7) per tablet 2021-10 0-05 00:00: 00 Yes [id number] 1{tbl} Take 1 tablet by mouth in the morning. [facility] ioL-iron (JUNEL FE .03/14, ,) 1.5 mg-30 mcg (21)/75 mg (7) per tablet 2021-10 0-05 00:00: 00 Yes [id number] 1{tbl} Take 1 tablet by mouth in the morning. [facility] ioL-iron (MARCHL FE .03/14, 28,) 1.5 mg-30 mcg (21)/75 mg (7) per tablet 2021-10 0-05 00:00: 00 Yes [id number] 1{tbl} Take 1 tablet by mouth in the morning. [facility] ioL-iron (MARCHL FE .03/14, ,) 1.5 mg-30 mcg (21)/75 mg (7) per tablet 2021-10 0-05 00:00: 00 Yes [id number] 1{tbl} Take 1 tablet by mouth in the morning. [facility] norethindro ne-e.estrad ioL-iron (JUNEL FE .03/14, ,) 1.5 mg-30 mcg (21)/75 mg (7) per tablet 2021-10 0-05 00:00: 00 Yes [id number] 1{tbl} Take 1 tablet by mouth in the morning. [facility] ioL-iron (JUNEL FE 1.5/30, 28,) 1.5 mg-30 mcg (21)/75 mg (7) per tablet 2021-10 0 00:00: 00 02-28 00:00 :00 No [id number] 1{tbl} Take 1 tablet by mouth in the morning. [facility] metroNIDAZO LE 500 mg tablet 02-23 00:00: 00 07-20 00:00 :00 No [id number] 500mg Take 1 tablet by mouth 2 (two) times daily. [facility] metroNIDAZO LE 500 mg tablet 02-23 00:00: 00 07-20 00:00 :00 No [id number] 500mg Take 1 tablet by mouth 2 (two) times daily. [facility] fluconazole (DIFLUCAN) 150 mg tablet 02-22 00:00: 00 02-23 04:59 :00 No [id number] 150mg Take 1 tablet by mouth once now for 1 dose. [facility] medroxyPROG ESTERone (DEPO-PROVE RA) injection 150 mg 07-13 19:45: 00 06-14 19:44 :00 No [id number] 150mg [facility] Immunizations Ordered Immunization Name Filled Immunization Name Date Status Comments Source Influenza Virus Vaccine Quad IM, Preserv and ABX Free 6 MO-64 YRS 2022-07-20 00:00:00 Completed [facility] Influenza Virus Vaccine Quad IM, Preserv and ABX Free 6 MO-64 YRS 2022-07-20 00:00:00 Completed [facility] Influenza Virus Vaccine Quad IM, Preserv and ABX Free 6 MO-64 YRS 2022-07-20 00:00:00 Completed [facility] Influenza Virus Vaccine Quad IM, Preserv and ABX Free 6 MO-64 YRS 2022-07-20 00:00:00 Completed [facility] Influenza Virus Vaccine Quad IM, Preserv and ABX Free 6 MO-64 YRS 2022-07-20 00:00:00 Completed [facility] Influenza Virus Vaccine Quad IM, Preserv and ABX Free 6 MO-64 YRS 2022-07-20 00:00:00 Completed [facility] Influenza Virus Vaccine Quad IM, Preserv and ABX Free 6 MO-64 YRS 2022-07-20 00:00:00 Completed [facility] Influenza Virus Vaccine Quad IM, Preserv and ABX Free 6 MO-64 YRS 2022-07-20 00:00:00 Completed [facility] Influenza Virus Vaccine Quad IM, Preserv and ABX Free 6 MO-64 YRS 2022-07-20 00:00:00 Completed [facility] Influenza Virus Vaccine Quad IM, Preserv and ABX Free 6 MO-64 YRS 2022-07-20 00:00:00 Completed [facility] Influenza Virus Vaccine Quad IM, Preserv and ABX Free 6 MO-64 YRS 2022-07-20 00:00:00 Completed [facility] Influenza Virus Vaccine Quad IM, Preserv and ABX Free 6 MO-64 YRS 2022-07-20 00:00:00 Completed [facility] Influenza Virus Vaccine Quad IM, Preserv and ABX Free 6 MO-64 YRS 2022-07-20 00:00:00 Completed [facility] Influenza Virus Vaccine Quad IM, Preserv and ABX Free 6 MO-64 YRS 2022-07-20 00:00:00 Completed [facility] Influenza Virus Vaccine Quad IM, Preserv and ABX Free MO-64 2022-07-20 00:00:00 Completed [facility] Influenza Virus Vaccine Quad IM, Preserv and ABX Free 6 MO-64 YRS 2022-07-20 00:00:00 Completed [facility] Influenza Virus Vaccine Quad IM, Preserv and ABX Free 6 MO-64 2022-07-20 00:00:00 Completed [facility] Influenza Virus Vaccine Quad IM, Preserv and ABX Free 6 MO-64 YRS 2022-07-20 00:00:00 Completed [facility] Influenza Virus Vaccine Quad IM, Preserv and ABX Free 6 MO-64 2022-07-20 00:00:00 Completed [facility] Influenza Virus Vaccine Quad IM, Preserv and ABX Free 6 MO-64 2022-07-20 00:00:00 Completed [facility] Influenza Virus Vaccine Quad IM, Preserv and ABX Free 6 MO-64 YRS 2022-07-20 00:00:00 Completed [facility] Influenza Virus Vaccine Quad IM, Preserv and ABX Free 6 MO-64 YRS (FLUCELVAX) 2022-07-20 00:00:00 Completed [facility] Influenza Virus Vaccine Quad IM, Preserv and ABX Free 6 MO-64 YRS (FLUCELVAX) 2022-07-20 00:00:00 Completed [facility] Influenza Virus Vaccine Quad IM, Preserv and ABX Free 6 MO-64 YRS (FLUCELVAX) 2022-07-20 00:00:00 Completed [facility] Influenza Virus Vaccine Quad IM, Preserv and ABX Free 6 MO-64 YRS (FLUCELVAX) 2022-07-20 00:00:00 Completed [facility] Influenza Virus Vaccine Quad IM, Preserv and ABX Free 6 MO-64 YRS (FLUCELVAX) 2022-07-20 00:00:00 Completed [facility] HPV9 2021-10-05 00:00:00 Completed [facility] HPV9 2021-10-05 00:00:00 Completed [facility] HPV9 2021-10-05 00:00:00 Completed [facility] HPV9 2021-10-05 00:00:00 Completed [facility] HPV9 2021-10-05 00:00:00 Completed [facility] HPV9 2021-10-05 00:00:00 Completed [facility] HPV9 2021-10-05 00:00:00 Completed [facility] HPV9 2021-10-05 00:00:00 Completed [facility] HPV9 2021-10-05 00:00:00 Completed [facility] HPV9 2021-10-05 00:00:00 Completed [facility] HPV9 2021-10-05 00:00:00 Completed [facility] HPV9 2021-10-05 00:00:00 Completed [facility] HPV9 2021-10-05 00:00:00 Completed [facility] HPV9 2021-10-05 00:00:00 Completed [facility] HPV9 2021-10-05 00:00:00 Completed [facility] HPV9 2021-10-05 00:00:00 Completed [facility] HPV9 2021-10-05 00:00:00 Completed [facility] HPV9 2021-10-05 00:00:00 Completed [facility] HPV9 2021-10-05 00:00:00 Completed [facility] HPV9 2021-10-05 00:00:00 Completed [facility] HPV9 2021-10-05 00:00:00 Completed [facility] HPV9 2021-10-05 00:00:00 Completed [facility] HPV9 2021-10-05 00:00:00 Completed [facility] HPV9 2021-10-05 00:00:00 Completed [facility] HPV9 2021-10-05 00:00:00 Completed [facility] HPV9 2021-10-05 00:00:00 Completed [facility] HPV9 2021-10-05 00:00:00 Completed [facility] SARS-COV-2 COVID-19 PFIZER VACCINE 2021-07-31 00:00:00 Completed [facility] SARS-COV-2 COVID-19 PFIZER VACCINE 2021-07-31 00:00:00 Completed [facility] SARS-COV-2 COVID-19 PFIZER VACCINE 2021-07-31 00:00:00 Completed [facility] SARS-COV-2 COVID-19 PFIZER VACCINE 2021-07-31 00:00:00 Completed [facility] SARS-COV-2 COVID-19 PFIZER VACCINE 2021-07-31 00:00:00 Completed [facility] SARS-COV-2 COVID-19 PFIZER VACCINE 2021-07-31 00:00:00 Completed [facility] SARS-COV-2 COVID-19 PFIZER VACCINE 2021-07-31 00:00:00 Completed [facility] SARS-COV-2 COVID-19 PFIZER VACCINE 2021-07-31 00:00:00 Completed [facility] SARS-COV-2 COVID-19 PFIZER VACCINE 2021-07-31 00:00:00 Completed [facility] SARS-COV-2 COVID-19 PFIZER VACCINE 2021-07-31 00:00:00 Completed [facility] SARS-COV-2 COVID-19 PFIZER VACCINE 2021-07-31 00:00:00 Completed [facility] SARS-COV-2 COVID-19 PFIZER VACCINE 2021-07-31 00:00:00 Completed [facility] SARS-COV-2 COVID-19 PFIZER VACCINE 2021-07-31 00:00:00 Completed [facility] SARS-COV-2 COVID-19 PFIZER VACCINE 2021-07-31 00:00:00 Completed [facility] SARS-COV-2 COVID-19 PFIZER VACCINE 2021-07-31 00:00:00 Completed [facility] SARS-COV-2 COVID-19 PFIZER VACCINE 2021-07-31 00:00:00 Completed [facility] SARS-COV-2 COVID-19 PFIZER VACCINE 2021-07-31 00:00:00 Completed [facility] SARS-COV-2 COVID-19 PFIZER VACCINE 2021-07-31 00:00:00 Completed [facility] SARS-COV-2 COVID-19 PFIZER VACCINE 2021-07-31 00:00:00 Completed [facility] SARS-COV-2 COVID-19 PFIZER VACCINE 2021-07-10 00:00:00 Completed [facility] SARS-COV-2 COVID-19 PFIZER VACCINE 2021-07-10 00:00:00 Completed [facility] SARS-COV-2 COVID-19 PFIZER VACCINE 2021-07-10 00:00:00 Completed [facility] SARS-COV-2 COVID-19 PFIZER VACCINE 2021-07-10 00:00:00 Completed [facility] SARS-COV-2 COVID-19 PFIZER VACCINE 2021-07-10 00:00:00 Completed [facility] SARS-COV-2 COVID-19 PFIZER VACCINE 2021-07-10 00:00:00 Completed [facility] SARS-COV-2 COVID-19 PFIZER VACCINE 2021-07-10 00:00:00 Completed [facility] SARS-COV-2 COVID-19 PFIZER VACCINE 2021-07-10 00:00:00 Completed [facility] SARS-COV-2 COVID-19 PFIZER VACCINE 2021-07-10 00:00:00 Completed [facility] SARS-COV-2 COVID-19 PFIZER VACCINE 2021-07-10 00:00:00 Completed [facility] SARS-COV-2 COVID-19 PFIZER VACCINE 2021-07-10 00:00:00 Completed [facility] SARS-COV-2 COVID-19 PFIZER VACCINE 2021-07-10 00:00:00 Completed [facility] SARS-COV-2 COVID-19 PFIZER VACCINE 2021-07-10 00:00:00 Completed [facility] SARS-COV-2 COVID-19 PFIZER VACCINE 2021-07-10 00:00:00 Completed [facility] SARS-COV-2 COVID-19 PFIZER VACCINE 2021-07-10 00:00:00 Completed [facility] SARS-COV-2 COVID-19 PFIZER VACCINE 2021-07-10 00:00:00 Completed [facility] SARS-COV-2 COVID-19 PFIZER VACCINE 2021-07-10 00:00:00 Completed [facility] SARS-COV-2 COVID-19 PFIZER VACCINE 2021-07-10 00:00:00 Completed [facility] SARS-COV-2 COVID-19 PFIZER VACCINE 2021-07-10 00:00:00 Completed [facility] Influenza Virus Vaccine Quad .5 mL IM 6+ MO 2020-08-26 00:00:00 Completed [facility] Influenza Virus Vaccine Quad .5 mL IM 6+ MO 2020-08-26 00:00:00 Completed [facility] Influenza Virus Vaccine Quad .5 mL IM 6+ MO 2020-08-26 00:00:00 Completed [facility] Influenza Virus Vaccine Quad .5 mL IM 6+ MO 2020-08-26 00:00:00 Completed [facility] Influenza Virus Vaccine Quad .5 mL IM 6+ MO 2020-08-26 00:00:00 Completed [facility] Influenza Virus Vaccine Quad .5 mL IM 6+ MO 2020-08-26 00:00:00 Completed [facility] Influenza Virus Vaccine Quad .5 mL IM 6+ MO 2020-08-26 00:00:00 Completed [facility] Influenza Virus Vaccine Quad .5 mL IM 6+ MO 2020-08-26 00:00:00 Completed [facility] Influenza Virus Vaccine Quad .5 mL IM 6+ MO 2020-08-26 00:00:00 Completed [facility] Influenza Virus Vaccine Quad .5 mL IM 6+ MO 2020-08-26 00:00:00 Completed [facility] Influenza Virus Vaccine Quad .5 mL IM 6+ MO 2020-08-26 00:00:00 Completed [facility] Influenza Virus Vaccine Quad .5 mL IM 6+ MO 2020-08-26 00:00:00 Completed [facility] Influenza Virus Vaccine Quad .5 mL IM 6+ MO 2020-08-26 00:00:00 Completed [facility] Influenza Virus Vaccine Quad .5 mL IM 6+ MO 2020-08-26 00:00:00 Completed [facility] Influenza Virus Vaccine Quad .5 mL IM 6+ MO 2020-08-26 00:00:00 Completed [facility] Influenza Virus Vaccine Quad .5 mL IM 6+ MO 2020-08-26 00:00:00 Completed [facility] Influenza Virus Vaccine Quad .5 mL IM 6+ MO 2020-08-26 00:00:00 Completed [facility] Influenza Virus Vaccine Quad .5 mL IM 6+ MO 2020-08-26 00:00:00 Completed [facility] Influenza Virus Vaccine Quad .5 mL IM 6+ MO 2020-08-26 00:00:00 Completed [facility] Influenza Virus Vaccine Quad .5 mL IM 6+ MO 2020-08-26 00:00:00 Completed [facility] Influenza Virus Vaccine Quad .5 mL IM 6+ MO 2020-08-26 00:00:00 Completed [facility] Influenza Virus Vaccine Quad .5 mL IM 6+ MO 2020-08-26 00:00:00 Completed [facility] Influenza Virus Vaccine Quad .5 mL IM 6+ MO (FLUZONE/FLULAVAL/FL UARIX) 2020-08-26 00:00:00 Completed [facility] Influenza Virus Vaccine Quad .5 mL IM 6+ MO (FLUZONE/FLULAVAL/FL UARIX) 2020-08-26 00:00:00 Completed [facility] Influenza Virus Vaccine Quad .5 mL IM 6+ MO (FLUZONE/FLULAVAL/FL UARIX) 2020-08-26 00:00:00 Completed [facility] Influenza Virus Vaccine Quad .5 mL IM 6+ MO (FLUZONE/FLULAVAL/FL UARIX) 2020-08-26 00:00:00 Completed [facility] Influenza Virus Vaccine Quad .5 mL IM 6+ MO (FLUZONE/FLULAVAL/FL UARIX) 2020-08-26 00:00:00 Completed [facility] HPV9 2020-05-18 00:00:00 Completed [facility] HPV9 2020-05-18 00:00:00 Completed [facility] HPV9 2020-05-18 00:00:00 Completed [facility] HPV9 2020-05-18 00:00:00 Completed [facility] HPV9 2020-05-18 00:00:00 Completed [facility] HPV9 2020-05-18 00:00:00 Completed [facility] HPV9 2020-05-18 00:00:00 Completed [facility] HPV9 2020-05-18 00:00:00 Completed [facility] HPV9 2020-05-18 00:00:00 Completed [facility] HPV9 2020-05-18 00:00:00 Completed [facility] HPV9 2020-05-18 00:00:00 Completed [facility] HPV9 2020-05-18 00:00:00 Completed [facility] HPV9 2020-05-18 00:00:00 Completed [facility] HPV9 2020-05-18 00:00:00 Completed [facility] HPV9 2020-05-18 00:00:00 Completed [facility] HPV9 2020-05-18 00:00:00 Completed [facility] HPV9 2020-05-18 00:00:00 Completed [facility] HPV9 2020-05-18 00:00:00 Completed [facility] HPV9 2020-05-18 00:00:00 Completed [facility] HPV9 2020-05-18 00:00:00 Completed [facility] HPV9 2020-05-18 00:00:00 Completed [facility] HPV9 2020-05-18 00:00:00 Completed [facility] HPV9 2020-05-18 00:00:00 Completed [facility] HPV9 2020-05-18 00:00:00 Completed [facility] HPV9 2020-05-18 00:00:00 Completed [facility] HPV9 2020-05-18 00:00:00 Completed [facility] HPV9 2020-05-18 00:00:00 Completed [facility] HPV9 2020-04-06 00:00:00 Completed [facility] MMR 2020-04-06 00:00:00 Completed [facility] HPV9 2020-04-06 00:00:00 Completed [facility] MMR 2020-04-06 00:00:00 Completed [facility] HPV9 2020-04-06 00:00:00 Completed [facility] MMR 2020-04-06 00:00:00 Completed [facility] HPV9 2020-04-06 00:00:00 Completed [facility] MMR 2020-04-06 00:00:00 Completed [facility] HPV9 2020-04-06 00:00:00 Completed [facility] MMR 2020-04-06 00:00:00 Completed [facility] HPV9 2020-04-06 00:00:00 Completed [facility] MMR 2020-04-06 00:00:00 Completed [facility] HPV9 2020-04-06 00:00:00 Completed [facility] MMR 2020-04-06 00:00:00 Completed [facility] HPV9 2020-04-06 00:00:00 Completed [facility] MMR 2020-04-06 00:00:00 Completed [facility] HPV9 2020-04-06 00:00:00 Completed [facility] MMR 2020-04-06 00:00:00 Completed [facility] HPV9 2020-04-06 00:00:00 Completed [facility] MMR 2020-04-06 00:00:00 Completed [facility] HPV9 2020-04-06 00:00:00 Completed [facility] MMR 2020-04-06 00:00:00 Completed [facility] HPV9 2020-04-06 00:00:00 Completed [facility] MMR 2020-04-06 00:00:00 Completed [facility] HPV9 2020-04-06 00:00:00 Completed [facility] MMR 2020-04-06 00:00:00 Completed [facility] HPV9 2020-04-06 00:00:00 Completed [facility] MMR 2020-04-06 00:00:00 Completed [facility] HPV9 2020-04-06 00:00:00 Completed [facility] MMR 2020-04-06 00:00:00 Completed [facility] HPV9 2020-04-06 00:00:00 Completed [facility] MMR 2020-04-06 00:00:00 Completed [facility] HPV9 2020-04-06 00:00:00 Completed [facility] MMR 2020-04-06 00:00:00 Completed [facility] HPV9 2020-04-06 00:00:00 Completed [facility] MMR 2020-04-06 00:00:00 Completed [facility] HPV9 2020-04-06 00:00:00 Completed [facility] MMR 2020-04-06 00:00:00 Completed [facility] HPV9 2020-04-06 00:00:00 Completed [facility] MMR 2020-04-06 00:00:00 Completed [facility] HPV9 2020-04-06 00:00:00 Completed [facility] MMR 2020-04-06 00:00:00 Completed [facility] HPV9 2020-04-06 00:00:00 Completed [facility] MMR 2020-04-06 00:00:00 Completed [facility] HPV9 2020-04-06 00:00:00 Completed [facility] MMR 2020-04-06 00:00:00 Completed [facility] HPV9 2020-04-06 00:00:00 Completed [facility] MMR 2020-04-06 00:00:00 Completed [facility] HPV9 2020-04-06 00:00:00 Completed [facility] MMR 2020-04-06 00:00:00 Completed [facility] HPV9 2020-04-06 00:00:00 Completed [facility] MMR 2020-04-06 00:00:00 Completed [facility] HPV9 2020-04-06 00:00:00 Completed [facility] MMR 2020-04-06 00:00:00 Completed [facility] TDAP 2020-01-31 00:00:00 Completed [facility] TDAP 2020-01-31 00:00:00 Completed [facility] TDAP 2020-01-31 00:00:00 Completed [facility] TDAP 2020-01-31 00:00:00 Completed [facility] TDAP 2020-01-31 00:00:00 Completed [facility] TDAP 2020-01-31 00:00:00 Completed [facility] TDAP 2020-01-31 00:00:00 Completed [facility] TDAP 2020-01-31 00:00:00 Completed [facility] TDAP 2020-01-31 00:00:00 Completed [facility] TDAP 2020-01-31 00:00:00 Completed [facility] TDAP 2020-01-31 00:00:00 Completed [facility] TDAP 2020-01-31 00:00:00 Completed [facility] TDAP 2020-01-31 00:00:00 Completed [facility] TDAP 2020-01-31 00:00:00 Completed [facility] TDAP 2020-01-31 00:00:00 Completed [facility] TDAP 2020-01-31 00:00:00 Completed [facility] TDAP 2020-01-31 00:00:00 Completed [facility] TDAP 2020-01-31 00:00:00 Completed [facility] TDAP 2020-01-31 00:00:00 Completed [facility] TDAP 2020-01-31 00:00:00 Completed [facility] TDAP 2020-01-31 00:00:00 Completed [facility] TDAP 2020-01-31 00:00:00 Completed [facility] TDAP 2020-01-31 00:00:00 Completed [facility] TDAP 2020-01-31 00:00:00 Completed [facility] TDAP 2020-01-31 00:00:00 Completed [facility] TDAP 2020-01-31 00:00:00 Completed [facility] TDAP 2020-01-31 00:00:00 Completed [facility] Influenza Virus Vaccine Quad .5 mL IM 6+ MO 2019-10-04 00:00:00 Completed [facility] Influenza Virus Vaccine Quad .5 mL IM 6+ MO 2019-10-04 00:00:00 Completed [facility] Influenza Virus Vaccine Quad .5 mL IM 6+ MO 2019-10-04 00:00:00 Completed [facility] Influenza Virus Vaccine Quad .5 mL IM 6+ MO 2019-10-04 00:00:00 Completed [facility] Influenza Virus Vaccine Quad .5 mL IM 6+ MO 2019-10-04 00:00:00 Completed [facility] Influenza Virus Vaccine Quad .5 mL IM 6+ MO 2019-10-04 00:00:00 Completed [facility] Influenza Virus Vaccine Quad .5 mL IM 6+ MO 2019-10-04 00:00:00 Completed [facility] Influenza Virus Vaccine Quad .5 mL IM 6+ MO 2019-10-04 00:00:00 Completed [facility] Influenza Virus Vaccine Quad .5 mL IM 6+ MO 2019-10-04 00:00:00 Completed [facility] Influenza Virus Vaccine Quad .5 mL IM 6+ MO 2019-10-04 00:00:00 Completed [facility] Influenza Virus Vaccine Quad .5 mL IM 6+ MO 2019-10-04 00:00:00 Completed [facility] Influenza Virus Vaccine Quad .5 mL IM 6+ MO 2019-10-04 00:00:00 Completed [facility] Influenza Virus Vaccine Quad .5 mL IM 6+ MO 2019-10-04 00:00:00 Completed [facility] Influenza Virus Vaccine Quad .5 mL IM 6+ MO 2019-10-04 00:00:00 Completed [facility] Influenza Virus Vaccine Quad .5 mL IM 6+ MO 2019-10-04 00:00:00 Completed [facility] Influenza Virus Vaccine Quad .5 mL IM 6+ MO 2019-10-04 00:00:00 Completed [facility] Influenza Virus Vaccine Quad .5 mL IM 6+ MO 2019-10-04 00:00:00 Completed [facility] Influenza Virus Vaccine Quad .5 mL IM 6+ MO 2019-10-04 00:00:00 Completed [facility] Influenza Virus Vaccine Quad .5 mL IM 6+ MO 2019-10-04 00:00:00 Completed [facility] Influenza Virus Vaccine Quad .5 mL IM 6+ MO 2019-10-04 00:00:00 Completed [facility] Influenza Virus Vaccine Quad .5 mL IM 6+ MO 2019-10-04 00:00:00 Completed [facility] Influenza Virus Vaccine Quad .5 mL IM 6+ MO 2019-10-04 00:00:00 Completed [facility] Influenza Virus Vaccine Quad .5 mL IM 6+ MO (FLUZONE/FLULAVAL/FL UARIX) 2019-10-04 00:00:00 Completed [facility] Influenza Virus Vaccine Quad .5 mL IM 6+ MO (FLUZONE/FLULAVAL/FL UARIX) 2019-10-04 00:00:00 Completed [facility] Influenza Virus Vaccine Quad .5 mL IM 6+ MO (FLUZONE/FLULAVAL/FL UARIX) 2019-10-04 00:00:00 Completed [facility] Influenza Virus Vaccine Quad .5 mL IM 6+ MO (FLUZONE/FLULAVAL/FL UARIX) 2019-10-04 00:00:00 Completed [facility] Influenza Virus Vaccine Quad .5 mL IM 6+ MO (FLUZONE/FLULAVAL/FL UARIX) 2019-10-04 00:00:00 Completed [facility] Meningococcal Polysaccharide (groups A, C, Y and W-135) conjugate vaccine (MCV4P) 2010-05-25 00:00:00 Completed [facility] Meningococcal Polysaccharide (groups A, C, Y and W-135) conjugate vaccine (MCV4P) 2010-05-25 00:00:00 Completed [facility] Meningococcal Polysaccharide (groups A, C, Y and W-135) conjugate vaccine (MCV4P) 2010-05-25 00:00:00 Completed [facility] Meningococcal Polysaccharide (groups A, C, Y and W-135) conjugate vaccine (MCV4P) 2010-05-25 00:00:00 Completed [facility] Meningococcal Polysaccharide (groups A, C, Y and W-135) conjugate vaccine (MCV4P) 2010-05-25 00:00:00 Completed [facility] Meningococcal Polysaccharide (groups A, C, Y and W-135) conjugate vaccine (MCV4P) 2010-05-25 00:00:00 Completed [facility] Meningococcal Polysaccharide (groups A, C, Y and W-135) conjugate vaccine (MCV4P) 2010-05-25 00:00:00 Completed [facility] Meningococcal Polysaccharide (groups A, C, Y and W-135) conjugate vaccine (MCV4P) 2010-05-25 00:00:00 Completed [facility] Meningococcal Polysaccharide (groups A, C, Y and W-135) conjugate vaccine (MCV4P) 2010-05-25 00:00:00 Completed [facility] Meningococcal Polysaccharide (groups A, C, Y and W-135) conjugate vaccine (MCV4P) 2010-05-25 00:00:00 Completed [facility] Meningococcal Polysaccharide (groups A, C, Y and W-135) conjugate vaccine (MCV4P) 2010-05-25 00:00:00 Completed [facility] Meningococcal Polysaccharide (groups A, C, Y and W-135) conjugate vaccine (MCV4P) 2010-05-25 00:00:00 Completed [facility] Meningococcal Polysaccharide (groups A, C, Y and W-135) conjugate vaccine (MCV4P) 2010-05-25 00:00:00 Completed [facility] Meningococcal Polysaccharide (groups A, C, Y and W-135) conjugate vaccine (MCV4P) 2010-05-25 00:00:00 Completed [facility] Meningococcal Polysaccharide (groups A, C, Y and W-135) conjugate vaccine (MCV4P) 2010-05-25 00:00:00 Completed [facility] Meningococcal Polysaccharide (groups A, C, Y and W-135) conjugate vaccine (MCV4P) 2010-05-25 00:00:00 Completed [facility] Meningococcal Polysaccharide (groups A, C, Y and W-135) conjugate vaccine (MCV4P) 2010-05-25 00:00:00 Completed [facility] Meningococcal Polysaccharide (groups A, C, Y and W-135) conjugate vaccine (MCV4P) 2010-05-25 00:00:00 Completed [facility] Meningococcal Polysaccharide (groups A, C, Y and W-135) conjugate vaccine (MCV4P) 2010-05-25 00:00:00 Completed [facility] Meningococcal Polysaccharide (groups A, C, Y and W-135) conjugate vaccine (MCV4P) 2010-05-25 00:00:00 Completed [facility] Meningococcal Polysaccharide (groups A, C, Y and W-135) conjugate vaccine (MCV4P) 2010-05-25 00:00:00 Completed [facility] Meningococcal Polysaccharide (groups A, C, Y and W-135) conjugate vaccine (MCV4P) 2010-05-25 00:00:00 Completed [facility] Meningococcal Polysaccharide (groups A, C, Y and W-135) conjugate vaccine (MCV4P) 2010-05-25 00:00:00 Completed [facility] Meningococcal Polysaccharide (groups A, C, Y and W-135) conjugate vaccine (MCV4P) 2010-05-25 00:00:00 Completed [facility] Meningococcal Polysaccharide (groups A, C, Y and W-135) conjugate vaccine (MCV4P) 2010-05-25 00:00:00 Completed [facility] Meningococcal Polysaccharide (groups A, C, Y and W-135) conjugate vaccine (MCV4P) 2010-05-25 00:00:00 Completed [facility] Meningococcal Polysaccharide (groups A, C, Y and W-135) conjugate vaccine (MCV4P) 2010-05-25 00:00:00 Completed [facility] Influenza Virus Vaccine Quad .5 mL IM 6+ MO (FLUZONE/FLULAVAL/FL UARIX) Unknown Completed [facility] TDAP Unknown Completed [facility] HPV9 Unknown Completed [facility] MMR Unknown Completed [facility] HPV9 Unknown Completed [facility] Influenza Virus Vaccine Quad .5 mL IM 6+ MO (FLUZONE/FLULAVAL/FL UARIX) Unknown Completed [facility] Meningococcal Polysaccharide (groups A, C, Y and W-135) conjugate vaccine (MCV4P) Unknown Completed [facility] HPV9 Unknown Completed [facility] Influenza Virus Vaccine Quad IM, Preserv and ABX Free 6 MO-64 YRS (FLUCELVAX) Unknown Completed [facility] SARS-COV-2 COVID-19 PFIZER VACCINE Unknown Completed [facility] SARS-COV-2 COVID-19 PFIZER VACCINE Unknown Completed [facility] Influenza Virus Vaccine Quad .5 mL IM 6+ MO (FLUZONE/FLULAVAL/FL UARIX) Unknown Completed [facility] TDAP Unknown Completed [facility] HPV9 Unknown Completed [facility] MMR Unknown Completed [facility] HPV9 Unknown Completed [facility] Influenza Virus Vaccine Quad .5 mL IM 6+ MO (FLUZONE/FLULAVAL/FL UARIX) Unknown Completed [facility] Meningococcal Polysaccharide (groups A, C, Y and W-135) conjugate vaccine (MCV4P) Unknown Completed [facility] HPV9 Unknown Completed [facility] Influenza Virus Vaccine Quad IM, Preserv and ABX Free 6 MO-64 YRS (FLUCELVAX) Unknown Completed [facility] SARS-COV-2 COVID-19 PFIZER VACCINE Unknown Completed [facility] SARS-COV-2 COVID-19 PFIZER VACCINE Unknown Completed [facility] Influenza Virus Vaccine Quad .5 mL IM 6+ MO (FLUZONE/FLULAVAL/FL UARIX) Unknown Completed [facility] TDAP Unknown Completed [facility] HPV9 Unknown Completed [facility] MMR Unknown Completed [facility] HPV9 Unknown Completed [facility] Influenza Virus Vaccine Quad .5 mL IM 6+ MO (FLUZONE/FLULAVAL/FL UARIX) Unknown Completed [facility] Meningococcal Polysaccharide (groups A, C, Y and W-135) conjugate vaccine (MCV4P) Unknown Completed [facility] HPV9 Unknown Completed [facility] Influenza Virus Vaccine Quad IM, Preserv and ABX Free 6 MO-64 YRS (FLUCELVAX) Unknown Completed [facility] SARS-COV-2 COVID-19 PFIZER VACCINE Unknown Completed [facility] SARS-COV-2 COVID-19 PFIZER VACCINE Unknown Completed [facility] Influenza Virus Vaccine Quad .5 mL IM 6+ MO (FLUZONE/FLULAVAL/FL UARIX) Unknown Completed [facility] TDAP Unknown Completed [facility] HPV9 Unknown Completed [facility] MMR Unknown Completed [facility] HPV9 Unknown Completed [facility] Influenza Virus Vaccine Quad .5 mL IM 6+ MO (FLUZONE/FLULAVAL/FL UARIX) Unknown Completed [facility] Meningococcal Polysaccharide (groups A, C, Y and W-135) conjugate vaccine (MCV4P) Unknown Completed [facility] HPV9 Unknown Completed [facility] Influenza Virus Vaccine Quad IM, Preserv and ABX Free 6 MO-64 YRS (FLUCELVAX) Unknown Completed [facility] SARS-COV-2 COVID-19 PFIZER VACCINE Unknown Completed [facility] SARS-COV-2 COVID-19 PFIZER VACCINE Unknown Completed [facility] Influenza Virus Vaccine Quad IM, Preserv and ABX Free 6 MO-64 YRS (FLUCELVAX) Unknown Completed [facility] Influenza Virus Vaccine Quad .5 mL IM 6+ MO (FLUZONE/FLULAVAL/FL UARIX) Unknown Completed [facility] TDAP Unknown Completed [facility] HPV9 Unknown Completed [facility] MMR Unknown Completed [facility] HPV9 Unknown Completed [facility] Influenza Virus Vaccine Quad .5 mL IM 6+ MO (FLUZONE/FLULAVAL/FL UARIX) Unknown Completed [facility] Meningococcal Polysaccharide (groups A, C, Y and W-135) conjugate vaccine (MCV4P) Unknown Completed [facility] HPV9 Unknown Completed [facility] Influenza Virus Vaccine Quad IM, Preserv and ABX Free 6 MO-64 YRS (FLUCELVAX) Unknown Completed [facility] SARS-COV-2 COVID-19 PFIZER VACCINE Unknown Completed [facility] SARS-COV-2 COVID-19 PFIZER VACCINE Unknown Completed [facility] Influenza Virus Vaccine Quad IM, Preserv and ABX Free 6 MO-64 YRS (FLUCELVAX) Unknown Completed [facility] Influenza Virus Vaccine Quad .5 mL IM 6+ MO (FLUZONE/FLULAVAL/FL UARIX) Unknown Completed [facility] TDAP Unknown Completed [facility] HPV9 Unknown Completed [facility] MMR Unknown Completed [facility] HPV9 Unknown Completed [facility] Influenza Virus Vaccine Quad .5 mL IM 6+ MO (FLUZONE/FLULAVAL/FL UARIX) Unknown Completed [facility] Meningococcal Polysaccharide (groups A, C, Y and W-135) conjugate vaccine (MCV4P) Unknown Completed [facility] HPV9 Unknown Completed [facility] Influenza Virus Vaccine Quad IM, Preserv and ABX Free 6 MO-64 YRS (FLUCELVAX) Unknown Completed [facility] SARS-COV-2 COVID-19 PFIZER VACCINE Unknown Completed [facility] SARS-COV-2 COVID-19 PFIZER VACCINE Unknown Completed [facility] Influenza Virus Vaccine Quad IM, Preserv and ABX Free 6 MO-64 YRS (FLUCELVAX) Unknown Completed [facility] Influenza Virus Vaccine Quad .5 mL IM 6+ MO (FLUZONE/FLULAVAL/FL UARIX) Unknown Completed [facility] TDAP Unknown Completed [facility] HPV9 Unknown Completed [facility] MMR Unknown Completed [facility] HPV9 Unknown Completed [facility] Influenza Virus Vaccine Quad .5 mL IM 6+ MO (FLUZONE/FLULAVAL/FL UARIX) Unknown Completed [facility] Meningococcal Polysaccharide (groups A, C, Y and W-135) conjugate vaccine (MCV4P) Unknown Completed [facility] HPV9 Unknown Completed [facility] Influenza Virus Vaccine Quad IM, Preserv and ABX Free 6 MO-64 YRS (FLUCELVAX) Unknown Completed [facility] SARS-COV-2 COVID-19 PFIZER VACCINE Unknown Completed [facility] SARS-COV-2 COVID-19 PFIZER VACCINE Unknown Completed [facility] Influenza Virus Vaccine Quad IM, Preserv and ABX Free 6 MO-64 YRS (FLUCELVAX) Unknown Completed [facility] Influenza Virus Vaccine Quad .5 mL IM 6+ MO (FLUZONE/FLULAVAL/FL UARIX) Unknown Completed [facility] TDAP Unknown Completed [facility] HPV9 Unknown Completed [facility] MMR Unknown Completed [facility] HPV9 Unknown Completed [facility] Influenza Virus Vaccine Quad .5 mL IM 6+ MO (FLUZONE/FLULAVAL/FL UARIX) Unknown Completed [facility] Meningococcal Polysaccharide (groups A, C, Y and W-135) conjugate vaccine (MCV4P) Unknown Completed [facility] HPV9 Unknown Completed [facility] Influenza Virus Vaccine Quad IM, Preserv and ABX Free 6 MO-64 YRS (FLUCELVAX) Unknown Completed [facility] SARS-COV-2 COVID-19 PFIZER VACCINE Unknown Completed [facility] SARS-COV-2 COVID-19 PFIZER VACCINE Unknown Completed [facility] Influenza Virus Vaccine Quad IM, Preserv and ABX Free 6 MO-64 YRS (FLUCELVAX) Unknown Completed [facility] TDAP Unknown Completed [facility] Influenza Virus Vaccine Quad .5 mL IM 6+ MO (FLUZONE/FLULAVAL/FL UARIX) Unknown Completed [facility] TDAP Unknown Completed [facility] HPV9 Unknown Completed [facility] MMR Unknown Completed [facility] HPV9 Unknown Completed [facility] Influenza Virus Vaccine Quad .5 mL IM 6+ MO (FLUZONE/FLULAVAL/FL UARIX) Unknown Completed [facility] Meningococcal Polysaccharide (groups A, C, Y and W-135) conjugate vaccine (MCV4P) Unknown Completed [facility] HPV9 Unknown Completed [facility] Influenza Virus Vaccine Quad IM, Preserv and ABX Free 6 MO-64 YRS (FLUCELVAX) Unknown Completed [facility] SARS-COV-2 COVID-19 PFIZER VACCINE Unknown Completed [facility] SARS-COV-2 COVID-19 PFIZER VACCINE Unknown Completed [facility] Influenza Virus Vaccine Quad IM, Preserv and ABX Free 6 MO-64 YRS (FLUCELVAX) Unknown Completed [facility] TDAP Unknown Completed [facility] Influenza Virus Vaccine Quad .5 mL IM 6+ MO (FLUZONE/FLULAVAL/FL UARIX) Unknown Completed [facility] TDAP Unknown Completed [facility] HPV9 Unknown Completed [facility] MMR Unknown Completed [facility] HPV9 Unknown Completed [facility] Influenza Virus Vaccine Quad .5 mL IM 6+ MO (FLUZONE/FLULAVAL/FL UARIX) Unknown Completed [facility] Meningococcal Polysaccharide (groups A, C, Y and W-135) conjugate vaccine (MCV4P) Unknown Completed [facility] HPV9 Unknown Completed [facility] Influenza Virus Vaccine Quad IM, Preserv and ABX Free 6 MO-64 YRS (FLUCELVAX) Unknown Completed [facility] SARS-COV-2 COVID-19 PFIZER VACCINE Unknown Completed [facility] SARS-COV-2 COVID-19 PFIZER VACCINE Unknown Completed [facility] Influenza Virus Vaccine Quad IM, Preserv and ABX Free 6 MO-64 YRS (FLUCELVAX) Unknown Completed [facility] TDAP Unknown Completed [facility] Influenza Virus Vaccine Quad .5 mL IM 6+ MO (FLUZONE/FLULAVAL/FL UARIX) Unknown Completed [facility] TDAP Unknown Completed [facility] HPV9 Unknown Completed [facility] MMR Unknown Completed [facility] HPV9 Unknown Completed [facility] Influenza Virus Vaccine Quad .5 mL IM 6+ MO (FLUZONE/FLULAVAL/FL UARIX) Unknown Completed [facility] Meningococcal Polysaccharide (groups A, C, Y and W-135) conjugate vaccine (MCV4P) Unknown Completed [facility] HPV9 Unknown Completed [facility] Influenza Virus Vaccine Quad IM, Preserv and ABX Free 6 MO-64 YRS (FLUCELVAX) Unknown Completed [facility] SARS-COV-2 COVID-19 PFIZER VACCINE Unknown Completed [facility] SARS-COV-2 COVID-19 PFIZER VACCINE Unknown Completed [facility] Influenza Virus Vaccine Quad IM, Preserv and ABX Free 6 MO-64 YRS (FLUCELVAX) Unknown Completed [facility] TDAP Unknown Completed [facility] Influenza Virus Vaccine Quad .5 mL IM 6+ MO (FLUZONE/FLULAVAL/FL UARIX) Unknown Completed [facility] TDAP Unknown Completed [facility] HPV9 Unknown Completed [facility] MMR Unknown Completed [facility] HPV9 Unknown Completed [facility] Influenza Virus Vaccine Quad .5 mL IM 6+ MO (FLUZONE/FLULAVAL/FL UARIX) Unknown Completed [facility] Meningococcal Polysaccharide (groups A, C, Y and W-135) conjugate vaccine (MCV4P) Unknown Completed [facility] HPV9 Unknown Completed [facility] Influenza Virus Vaccine Quad IM, Preserv and ABX Free 6 MO-64 YRS (FLUCELVAX) Unknown Completed [facility] SARS-COV-2 COVID-19 PFIZER VACCINE Unknown Completed [facility] SARS-COV-2 COVID-19 PFIZER VACCINE Unknown Completed [facility] Influenza Virus Vaccine Quad IM, Preserv and ABX Free 6 MO-64 YRS (FLUCELVAX) Unknown Completed [facility] TDAP Unknown Completed [facility] Influenza Virus Vaccine Quad .5 mL IM 6+ MO (FLUZONE/FLULAVAL/FL UARIX) Unknown Completed [facility] TDAP Unknown Completed [facility] HPV9 Unknown Completed [facility] MMR Unknown Completed [facility] HPV9 Unknown Completed [facility] Influenza Virus Vaccine Quad .5 mL IM 6+ MO (FLUZONE/FLULAVAL/FL UARIX) Unknown Completed [facility] Meningococcal Polysaccharide (groups A, C, Y and W-135) conjugate vaccine (MCV4P) Unknown Completed [facility] HPV9 Unknown Completed [facility] Influenza Virus Vaccine Quad IM, Preserv and ABX Free 6 MO-64 YRS (FLUCELVAX) Unknown Completed [facility] SARS-COV-2 COVID-19 PFIZER VACCINE Unknown Completed [facility] SARS-COV-2 COVID-19 PFIZER VACCINE Unknown Completed [facility] Influenza Virus Vaccine Quad IM, Preserv and ABX Free 6 MO-64 YRS (FLUCELVAX) Unknown Completed [facility] TDAP Unknown Completed [facility] Influenza Virus Vaccine Quad .5 mL IM 6+ MO (FLUZONE/FLULAVAL/FL UARIX) Unknown Completed [facility] TDAP Unknown Completed [facility] HPV9 Unknown Completed [facility] MMR Unknown Completed [facility] HPV9 Unknown Completed [facility] Influenza Virus Vaccine Quad .5 mL IM 6+ MO (FLUZONE/FLULAVAL/FL UARIX) Unknown Completed [facility] Meningococcal Polysaccharide (groups A, C, Y and W-135) conjugate vaccine (MCV4P) Unknown Completed [facility] HPV9 Unknown Completed [facility] Influenza Virus Vaccine Quad IM, Preserv and ABX Free 6 MO-64 YRS (FLUCELVAX) Unknown Completed [facility] SARS-COV-2 COVID-19 PFIZER VACCINE Unknown Completed [facility] SARS-COV-2 COVID-19 PFIZER VACCINE Unknown Completed [facility] Influenza Virus Vaccine Quad IM, Preserv and ABX Free 6 MO-64 YRS (FLUCELVAX) Unknown Completed [facility] TDAP Unknown Completed [facility] Influenza Virus Vaccine Quad .5 mL IM 6+ MO (FLUZONE/FLULAVAL/FL UARIX) Unknown Completed [facility] TDAP Unknown Completed [facility] HPV9 Unknown Completed [facility] MMR Unknown Completed [facility] HPV9 Unknown Completed [facility] Influenza Virus Vaccine Quad .5 mL IM 6+ MO (FLUZONE/FLULAVAL/FL UARIX) Unknown Completed [facility] Meningococcal Polysaccharide (groups A, C, Y and W-135) conjugate vaccine (MCV4P) Unknown Completed [facility] HPV9 Unknown Completed [facility] Influenza Virus Vaccine Quad IM, Preserv and ABX Free 6 MO-64 YRS (FLUCELVAX) Unknown Completed [facility] SARS-COV-2 COVID-19 PFIZER VACCINE Unknown Completed [facility] SARS-COV-2 COVID-19 PFIZER VACCINE Unknown Completed [facility] Influenza Virus Vaccine Quad IM, Preserv and ABX Free 6 MO-64 YRS (FLUCELVAX) Unknown Completed [facility] TDAP Unknown Completed [facility] Influenza Virus Vaccine Quad .5 mL IM 6+ MO (FLUZONE/FLULAVAL/FL UARIX) Unknown Completed [facility] TDAP Unknown Completed [facility] HPV9 Unknown Completed [facility] MMR Unknown Completed [facility] HPV9 Unknown Completed [facility] Influenza Virus Vaccine Quad .5 mL IM 6+ MO (FLUZONE/FLULAVAL/FL UARIX) Unknown Completed [facility] Meningococcal Polysaccharide (groups A, C, Y and W-135) conjugate vaccine (MCV4P) Unknown Completed [facility] HPV9 Unknown Completed [facility] Influenza Virus Vaccine Quad IM, Preserv and ABX Free 6 MO-64 YRS (FLUCELVAX) Unknown Completed [facility] SARS-COV-2 COVID-19 PFIZER VACCINE Unknown Completed [facility] SARS-COV-2 COVID-19 PFIZER VACCINE Unknown Completed [facility] Influenza Virus Vaccine Quad IM, Preserv and ABX Free 6 MO-64 YRS (FLUCELVAX) Unknown Completed [facility] TDAP Unknown Completed [facility] Influenza Virus Vaccine Quad .5 mL IM 6+ MO (FLUZONE/FLULAVAL/FL UARIX) Unknown Completed [facility] TDAP Unknown Completed [facility] HPV9 Unknown Completed [facility] MMR Unknown Completed [facility] HPV9 Unknown Completed [facility] Influenza Virus Vaccine Quad .5 mL IM 6+ MO (FLUZONE/FLULAVAL/FL UARIX) Unknown Completed [facility] Meningococcal Polysaccharide (groups A, C, Y and W-135) conjugate vaccine (MCV4P) Unknown Completed [facility] HPV9 Unknown Completed [facility] Influenza Virus Vaccine Quad IM, Preserv and ABX Free 6 MO-64 YRS (FLUCELVAX) Unknown Completed [facility] SARS-COV-2 COVID-19 PFIZER VACCINE Unknown Completed [facility] SARS-COV-2 COVID-19 PFIZER VACCINE Unknown Completed [facility] Influenza Virus Vaccine Quad IM, Preserv and ABX Free 6 MO-64 YRS (FLUCELVAX) Unknown Completed [facility] TDAP Unknown Completed [facility] Influenza Virus Vaccine Quad .5 mL IM 6+ MO (FLUZONE/FLULAVAL/FL UARIX) Unknown Completed [facility] TDAP Unknown Completed [facility] HPV9 Unknown Completed [facility] MMR Unknown Completed [facility] HPV9 Unknown Completed [facility] Influenza Virus Vaccine Quad .5 mL IM 6+ MO (FLUZONE/FLULAVAL/FL UARIX) Unknown Completed [facility] Meningococcal Polysaccharide (groups A, C, Y and W-135) conjugate vaccine (MCV4P) Unknown Completed [facility] HPV9 Unknown Completed [facility] Influenza Virus Vaccine Quad IM, Preserv and ABX Free 6 MO-64 YRS (FLUCELVAX) Unknown Completed [facility] SARS-COV-2 COVID-19 PFIZER VACCINE Unknown Completed [facility] SARS-COV-2 COVID-19 PFIZER VACCINE Unknown Completed [facility] Influenza Virus Vaccine Quad IM, Preserv and ABX Free 6 MO-64 YRS (FLUCELVAX) Unknown Completed [facility] TDAP Unknown Completed [facility] Influenza Virus Vaccine Quad .5 mL IM 6+ MO (FLUZONE/FLULAVAL/FL UARIX) Unknown Completed [facility] TDAP Unknown Completed [facility] HPV9 Unknown Completed [facility] MMR Unknown Completed [facility] HPV9 Unknown Completed [facility] Influenza Virus Vaccine Quad .5 mL IM 6+ MO (FLUZONE/FLULAVAL/FL UARIX) Unknown Completed [facility] Meningococcal Polysaccharide (groups A, C, Y and W-135) conjugate vaccine (MCV4P) Unknown Completed [facility] HPV9 Unknown Completed [facility] Influenza Virus Vaccine Quad IM, Preserv and ABX Free 6 MO-64 YRS (FLUCELVAX) Unknown Completed [facility] SARS-COV-2 COVID-19 PFIZER VACCINE Unknown Completed [facility] SARS-COV-2 COVID-19 PFIZER VACCINE Unknown Completed [facility] Influenza Virus Vaccine Quad IM, Preserv and ABX Free 6 MO-64 YRS (FLUCELVAX) Unknown Completed [facility] TDAP Unknown Completed [facility] Influenza Virus Vaccine Quad .5 mL IM 6+ MO (FLUZONE/FLULAVAL/FL UARIX) Unknown Completed [facility] TDAP Unknown Completed [facility] HPV9 Unknown Completed [facility] MMR Unknown Completed [facility] HPV9 Unknown Completed [facility] Influenza Virus Vaccine Quad .5 mL IM 6+ MO (FLUZONE/FLULAVAL/FL UARIX) Unknown Completed [facility] Meningococcal Polysaccharide (groups A, C, Y and W-135) conjugate vaccine (MCV4P) Unknown Completed [facility] HPV9 Unknown Completed [facility] Influenza Virus Vaccine Quad IM, Preserv and ABX Free 6 MO-64 YRS (FLUCELVAX) Unknown Completed [facility] SARS-COV-2 COVID-19 PFIZER VACCINE Unknown Completed [facility] SARS-COV-2 COVID-19 PFIZER VACCINE Unknown Completed [facility] Influenza Virus Vaccine Quad IM, Preserv and ABX Free 6 MO-64 YRS (FLUCELVAX) Unknown Completed [facility] TDAP Unknown Completed [facility] Influenza Virus Vaccine Quad .5 mL IM 6+ MO (FLUZONE/FLULAVAL/FL UARIX) Unknown Completed [facility] TDAP Unknown Completed [facility] HPV9 Unknown Completed [facility] MMR Unknown Completed [facility] HPV9 Unknown Completed [facility] Influenza Virus Vaccine Quad .5 mL IM 6+ MO (FLUZONE/FLULAVAL/FL UARIX) Unknown Completed [facility] Meningococcal Polysaccharide (groups A, C, Y and W-135) conjugate vaccine (MCV4P) Unknown Completed [facility] HPV9 Unknown Completed [facility] Influenza Virus Vaccine Quad IM, Preserv and ABX Free 6 MO-64 YRS (FLUCELVAX) Unknown Completed [facility] SARS-COV-2 COVID-19 PFIZER VACCINE Unknown Completed [facility] SARS-COV-2 COVID-19 PFIZER VACCINE Unknown Completed [facility] Influenza Virus Vaccine Quad IM, Preserv and ABX Free 6 MO-64 YRS (FLUCELVAX) Unknown Completed [facility] TDAP Unknown Completed [facility] Influenza Virus Vaccine Quad .5 mL IM 6+ MO (FLUZONE/FLULAVAL/FL UARIX) Unknown Completed [facility] TDAP Unknown Completed [facility] HPV9 Unknown Completed [facility] MMR Unknown [facility]pleted [facility] HPV9 Unknown Completed [facility] Influenza Virus Vaccine Quad .5 mL IM 6+ MO (FLUZONE/FLULAVAL/FL UARIX) Unknown Completed [facility] Meningococcal Polysaccharide (groups A, C, Y and W-135) conjugate vaccine (MCV4P) Unknown Completed [facility] HPV9 Unknown Completed [facility] Influenza Virus Vaccine Quad IM, Preserv and ABX Free 6 MO-64 YRS (FLUCELVAX) Unknown Completed [facility] SARS-COV-2 COVID-19 PFIZER VACCINE Unknown Completed [facility] SARS-COV-2 COVID-19 PFIZER VACCINE Unknown Completed [facility] Influenza Virus Vaccine Quad IM, Preserv and ABX Free 6 MO-64 YRS (FLUCELVAX) Unknown Completed [facility] TDAP Unknown Completed [facility] Vital Signs Vital Name Observation Time Observation Value Comments S ource Systolic blood pressure 2023-10-25 13:50:00 100 mm[Hg] [facility] Diastolic blood pressure 2023-10-25 13:50:00 71 mm[Hg] [facility] Heart rate 2023-10-25 13:50:00 67 /min [facility] Body temperature 2023-10-25 13:50:00 36.61 Janneth [facility] Respiratory rate 2023-10-25 13:50:00 18 /min [facility] Oxygen saturation in Arterial blood by Pulse oximetry 2023-10-25 13:50:00 97 /min [facility] Body height 2023-10-22 19:08:00 170.2 cm [facility] Body weight 2023-10-22 19:08:00 79.924 kg [facility] BMI 2023-10-22 19:08:00 27.60 kg/m2 [facility] Systolic blood pressure 2023-10-23 15:15:00 107 mm[Hg] [facility] Diastolic blood pressure 2023-10-23 15:15:00 69 mm[Hg] [facility] Heart rate 2023-10-23 15:15:00 57 /min [facility] Respiratory rate 2023-10-23 15:15:00 19 /min [facility] Oxygen saturation in Arterial blood by Pulse oximetry 2023-10-23 15:15:00 97 /min [facility] Body temperature 2023-10-23 15:00:00 36.5 Janneth [facility] Body height 2023-10-22 19:08:00 170.2 cm [facility] Body weight 2023-10-22 19:08:00 79.924 kg [facility] BMI 2023-10-22 19:08:00 27.60 kg/m2 [facility] Systolic blood pressure 2023-10-19 18:53:00 120 mm[Hg] [facility] Diastolic blood pressure 2023-10-19 18:53:00 70 mm[Hg] [facility] Heart rate 2023-10-19 18:53:00 88 /min [facility] 2023-10-19 18:53:00 35.83 Janneth [facility] Respiratory rate 2023-10-19 18:53:00 18 /min [facility] Body height 2023-10-19 18:53:00 170.2 cm [facility] Body weight 2023-10-19 18:53:00 79.946 kg [facility] BMI 2023-10-19 18:53:00 27.60 kg/m2 [facility] Systolic blood pressure 2023-10-12 21:29:00 131 mm[Hg] [facility] Diastolic blood pressure 2023-10-12 21:29:00 68 mm[Hg] [facility] Heart rate 2023-10-12 21:29:00 100 /min [facility] Body temperature 2023-10-12 21:29:00 36.11 Janneth [facility] Respiratory rate 2023-10-12 21:29:00 18 /min [facility] Body height 2023-10-12 21:29:00 170.2 cm [facility] Body weight 2023-10-12 21:29:00 79.436 kg [facility] BMI 2023-10-12 21:29:00 27.43 kg/m2 [facility] Systolic blood pressure 2023-10-03 17:08:00 139 mm[Hg] [facility] Diastolic blood pressure 2023-10-03 17:08:00 64 mm[Hg] [facility] Heart rate 2023-10-03 17:08:00 84 /min [facility] Body temperature 2023-10-03 17:08:00 36.11 Janneth [facility] Respiratory rate 2023-10-03 17:08:00 18 /min [facility] Body height 2023-10-03 17:08:00 170.2 cm [facility] Body weight 2023-10-03 17:08:00 77.735 kg [facility] BMI 2023-10-03 17:08:00 26.84 kg/m2 [facility] Systolic blood pressure 2023-09-28 17:19:00 102 mm[Hg] [facility] Diastolic blood pressure 2023-09-28 17:19:00 65 mm[Hg] [facility] Heart rate 2023-09-28 17:19:00 85 /min [facility] Body temperature 2023-09-28 17:19:00 36.39 Janneth [facility] Respiratory rate 2023-09-28 17:19:00 18 /min [facility] Body weight 2023-09-28 17:19:00 78.654 kg [facility] BMI 2023-09-28 17:19:00 27.16 kg/m2 [facility] Systolic blood pressure 2023-09-15 14:55:00 127 mm[Hg] [facility] Diastolic blood pressure 2023-09-15 14:55:00 74 mm[Hg] [facility] Heart rate 2023-09-15 14:55:00 89 /min [facility] Body temperature 2023-09-15 14:55:00 36.33 Janneth [facility] Respiratory rate 2023-09-15 14:55:00 18 /min [facility] Body height 2023-09-15 14:55:00 170.2 cm [facility] Body weight 2023-09-15 14:55:00 78.382 kg [facility] BMI 2023-09-15 14:55:00 27.06 kg/m2 [facility] Systolic blood pressure 2023-08-29 22:17:00 128 mm[Hg] [facility] Diastolic blood pressure 2023-08-29 22:17:00 76 mm[Hg] [facility] Heart rate 2023-08-29 22:17:00 88 /min [facility] Body temperature 2023-08-29 22:17:00 36.28 Janneth [facility] Respiratory rate 2023-08-29 22:17:00 18 /min [facility] Body height 2023-08-29 22:17:00 170.2 cm [facility] Body weight 2023-08-29 22:17:00 78.586 kg [facility] BMI 2023-08-29 22:17:00 27.13 kg/m2 [facility] Systolic blood pressure 2023-08-15 21:14:00 122 mm[Hg] [facility] Diastolic blood pressure 2023-08-15 21:14:00 66 mm[Hg] [facility] Heart rate 2023-08-15 21:14:00 93 /min [facility] Body temperature 2023-08-15 21:14:00 36.22 Janneth [facility] Respiratory rate 2023-08-15 21:14:00 18 /min [facility] Body height 2023-08-15 21:14:00 170.2 cm [facility] Body weight 2023-08-15 21:14:00 77.31 kg [facility] BMI 2023-08-15 21:14:00 26.69 kg/m2 [facility] Systolic blood pressure 2023-07-27 14:50:00 112 mm[Hg] [facility] Diastolic blood pressure 2023-07-27 14:50:00 68 mm[Hg] [facility] Heart rate 2023-07-27 14:50:00 92 /min [facility] Body temperature 2023-07-27 14:50:00 36.72 Janneth [facility] Respiratory rate 2023-07-27 14:50:00 18 /min [facility] Body height 2023-07-27 14:50:00 170.2 cm [facility] Body weight 2023-07-27 14:50:00 75.751 kg [facility] BMI 2023-07-27 14:50:00 26.16 kg/m2 [facility] Systolic blood pressure 2023-07-13 13:15:00 104 mm[Hg] [facility] Diastolic blood pressure 2023-07-13 13:15:00 69 mm[Hg] [facility] Heart rate 2023-07-13 13:15:00 80 /min [facility] Body temperature 2023-07-13 13:15:00 36.67 Janneth [facility] Respiratory rate 2023-07-13 13:15:00 18 /min [facility] Body height 2023-07-13 13:15:00 170.2 cm [facility] Body weight 2023-07-13 13:15:00 74.532 kg [facility] BMI 2023-07-13 13:15:00 25.73 kg/m2 [facility] Systolic blood pressure 2023-06-26 15:03:00 118 mm[Hg] [facility] Diastolic blood pressure 2023-06-26 15:03:00 71 mm[Hg] [facility] Heart rate 2023-06-26 15:03:00 92 /min [facility] Body temperature 2023-06-26 15:03:00 36.17 Janneth [facility] Respiratory rate 2023-06-26 15:03:00 18 /min [facility] Body height 2023-06-26 15:03:00 170.2 cm [facility] Body weight 2023-06-26 15:03:00 72.802 kg [facility] BMI 2023-06-26 15:03:00 25.14 kg/m2 [facility] Systolic blood pressure 2023-06-15 17:55:00 101 mm[Hg] [facility] Diastolic blood pressure 2023-06-15 17:55:00 64 mm[Hg] [facility] Heart rate 2023-06-15 17:55:00 98 /min [facility] Body temperature 2023-06-15 17:55:00 36.06 Janneth [facility] Respiratory rate 2023-06-15 17:55:00 18 /min [facility] Body height 2023-06-15 17:55:00 170.2 cm [facility] Body weight 2023-06-15 17:55:00 72.848 kg [facility] BMI 2023-06-15 17:55:00 25.15 kg/m2 [facility] Systolic blood pressure 2023-05-18 18:21:00 112 mm[Hg] [facility] Diastolic blood pressure 2023-05-18 18:21:00 67 mm[Hg] [facility] Heart rate 2023-05-18 18:21:00 89 /min [facility] Body temperature 2023-05-18 18:21:00 36.5 Janneth [facility] Respiratory rate 2023-05-18 18:21:00 17 /min [facility] Body height 2023-05-18 18:21:00 170.2 cm [facility] Body weight 2023-05-18 18:21:00 69.536 kg [facility] BMI 2023-05-18 18:21:00 24.01 kg/m2 [facility] Systolic blood pressure 2023-05-05 13:38:00 113 mm[Hg] [facility] Diastolic blood pressure 2023-05-05 13:38:00 73 mm[Hg] [facility] Heart rate 2023-05-05 13:38:00 90 /min [facility] Body temperature 2023-05-05 13:38:00 36.33 Janneth [facility] Respiratory rate 2023-05-05 13:38:00 18 /min [facility] Body height 2023-05-05 13:38:00 170.2 cm [facility] Body weight 2023-05-05 13:38:00 68.72 kg [facility] BMI 2023-05-05 13:38:00 23.73 kg/m2 [facility] Systolic blood pressure 2023-03-30 20:08:00 116 mm[Hg] [facility] Diastolic blood pressure 2023-03-30 20:08:00 80 mm[Hg] [facility] Heart rate 2023-03-30 20:08:00 93 /min [facility] Body temperature 2023-03-30 20:08:00 36.28 Janneth [facility] Respiratory rate 2023-03-30 20:08:00 18 /min [facility] Body height 2023-03-30 20:08:00 170.2 cm [facility] Body weight 2023-03-30 20:08:00 67.302 kg [facility] BMI 2023-03-30 20:08:00 23.24 kg/m2 [facility] Systolic blood pressure 2023-02-28 19:25:00 118 mm[Hg] [facility] Diastolic blood pressure 2023-02-28 19:25:00 80 mm[Hg] [facility] Heart rate 2023-02-28 19:24:00 87 /min [facility] Body temperature 2023-02-28 19:24:00 36.33 Janneth [facility] Respiratory rate 2023-02-28 19:24:00 18 /min [facility] Body height 2023-02-28 19:24:00 170.2 cm [facility] Body weight 2023-02-28 19:24:00 69.003 kg [facility] BMI 2023-02-28 19:24:00 23.83 kg/m2 [facility] Systolic blood pressure 2022-10-11 19:54:00 120 mm[Hg] [facility] Diastolic blood pressure 2022-10-11 19:54:00 83 mm[Hg] [facility] Heart rate 2022-10-11 19:54:00 79 /min [facility] Body temperature 2022-10-11 19:54:00 36.5 Janneth [facility] Respiratory rate 2022-10-11 19:54:00 18 /min [facility] Body height 2022-10-11 19:54:00 170.2 cm [facility] Body weight 2022-10-11 19:54:00 68.663 kg [facility] BMI 2022-10-11 19:54:00 23.71 kg/m2 [facility] Systolic blood pressure 2022-08-25 15:40:00 125 mm[Hg] [facility] Diastolic blood pressure 2022-08-25 15:40:00 79 mm[Hg] [facility] Heart rate 2022-08-25 15:40:00 75 /min [facility] Body temperature 2022-08-25 15:40:00 36.61 Janneth [facility] Respiratory rate 2022-08-25 15:40:00 20 /min [facility] Body height 2022-08-25 15:40:00 170.2 cm [facility] Body weight 2022-08-25 15:40:00 72.122 kg [facility] BMI 2022-08-25 15:40:00 24.90 kg/m2 [facility] Systolic blood pressure 2022-07-20 18:28:00 109 mm[Hg] [facility] Diastolic blood pressure 2022-07-20 18:28:00 77 mm[Hg] [facility] Heart rate 2022-07-20 18:28:00 80 /min [facility] Body temperature 2022-07-20 18:28:00 36.56 Janneth [facility] Respiratory rate 2022-07-20 18:28:00 18 /min [facility] Body weight 2022-07-20 18:28:00 74.798 kg [facility] BMI 2022-07-20 18:28:00 25.83 kg/m2 [facility] Systolic blood pressure 2022-02-22 20:03:00 113 mm[Hg] [facility] Diastolic blood pressure 2022-02-22 20:03:00 64 mm[Hg] [facility] Heart rate 2022-02-22 20:03:00 74 /min [facility] Body temperature 2022-02-22 20:03:00 36.78 Janneth [facility] Respiratory rate 2022-02-22 20:03:00 20 /min [facility] Body height 2022-02-22 20:03:00 170.2 cm [facility] Body weight 2022-02-22 20:03:00 79.198 kg [facility] BMI 2022-02-22 20:03:00 27.35 kg/m2 [facility] Procedures Procedure Date / Time Performed Performing Clinician Source CBC WITH DIFF 2023-10-24 07:47:00 [facility] WITH DIFF 2023-10-24 07:47:00 [facility] TUBAL LIGATION 2023-10-23 13:50:00 [facility] 2023-10-23 13:50:00 Zoya Marcos Un [facility] VENOUS CORD GAS 2023-10-23 07:57:00 El-Eishy, Alfarooq Y [facility] VENOUS CORD GAS 2023-10-23 07:57:00 El-Eishy, Alfarooq Y [facility] CENTRAL NEURAXIAL BLOCK 2023-10-23 02:01:00 Bam Severino [facility] CBC WITH DIFF 2023-10-22 19:52:00 El-Eishy, Alfarooq Y [facility] HEPATITIS B SURFACE ANTIGEN 2023-10-22 19:52:00 El-Eishy, Alfarooq Y [facility] HB ABO GROUPING 2023-10-22 19:52:00 El-Eishy, Alfarooq Y [facility] RHO (D) IMMUNE GLOBULIN 2023-10-22 19:52:00 Yamilex Duke [facility] HIV 1/2 AG-AB WITH REFLEX 2023-10-22 19:52:00 El-Eishy , Alfarooq Y [facility] SYPHILIS IGG/IGM 2023-10-22 19:52:00 El-Eishy, Alfaroo q Y [facility] CBC WITH DIFF 2023-10-22 19:52:00 El-Eishy, Alfarooq Y [facility] HEPATITIS B SURFACE ANTIGEN 2023-10-22 19:52:00 El-Eishy, Alfarooq Y [facility] HB ABO GROUPING 2023-10-22 19:52:00 El-Eishy, Alfarooq Y [facility] RHO (D) IMMUNE GLOBULIN 2023-10-22 19:52:00 Yamilex [facility] HIV 1/2 AG-AB WITH REFLEX 2023-10-22 19:52:00 Watson Castanon [facility] SYPHILIS IGG/IGM 2023-10-22 19:52:00 Maribell Castanon Y [facility] POCT URINALYSIS 2023-10-12 21:35:00 Zulay Todd [facility] GC & CHLAMYDIA AMPLIFIED ASSAY 2023-10-03 17:38:00 Zulay Todd [facility] POCT URINALYSIS 2023-10-03 17:37:00 Zulay Todd [facility] CBC WITH DIFF 2023-10-03 17:31:00 Zulay Todd [facility] POCT URINALYSIS 2023-09-28 17:19:00 Zulay Todd [facility] POCT URINALYSIS 2023-09-15 14:58:00 Zulay Todd [facility] POCT URINALYSIS 2023-08-29 22:37:00 Zulay Todd [facility] HIV 1/2 AG-AB WITH REFLEX 2023-08-29 22:10:00 Zulay Nava [facility] POCT URINALYSIS 2023-08-15 21:18:00 Zulay Todd [facility] TDAP VACCINE, >11 YRS, IM 2023-08-15 21:15:47 Zulay Nava [facility] POCT URINALYSIS 2023-07-27 16:00:00 Zulay Todd [facility] STERILIZATION CONSENT FORM 2023-07-27 05:01:00 Doctor Unassigned, Raven [facility] POCT URINALYSIS 2023-07-13 13:30:00 Zulay Todd [facility] FLU VACC (), 6 MO-64 YRS, .5ML, IM, QUAD (FLUCELVAX) 2023-07-13 13:24:56 Angelita Wheeler [facility] POCT URINALYSIS 2023-07-13 13:18:00 Zulay Todd [facility] POCT URINALYSIS 2023-06-26 16:11:00 Zulay Todd [facility] POCT URINALYSIS 2023-06-15 18:32:00 Zulay Todd [facility] POCT MOLECULAR FLU 2023-06-15 18:28:00 Angelita Wheeler [facility] COVID-19 (MOLECULAR TESTING NUCLEIC ACID AMPLIFICATION) 2023-06-15 18:24:00 Angelita Wheeler [facility] LAB ONLY COVID INTERPRETATION 2023-06-15 18:24:00 Angelita Wheeler [facility] POCT MOLECULAR STREP 2023-06-15 18:23:00 Bryanna Wheeler [facility] SECOND AND THIRD TRIMESTER ULTRASOUND 2023-06-13 15:00:00 Zulay Todd [facility] SECOND AND THIRD TRIMESTER ULTRASOUND 2023-06-13 14:55:00 Zulay Todd [facility] POCT URINALYSIS 2023-05-18 00:00:00 Zulay Todd [facility] POCT URINALYSIS 2023-05-05 13:43:00 Zulay Todd [facility] MISCELLANEOUS SENDOUT TEST 2023-04-14 05:01:00 Doctor Unassigned, Raven [facility] POCT URINALYSIS 2023-03-30 20:11:00 Zulay Todd [facility] POCT URINALYSIS 2023-03-30 20:09:00 Zulay Todd [facility] POCT URINALYSIS W/O SPECIFIC GRAVITY 2023-02-28 19:23:00 Zulay Todd [facility] POCT TEST 2023-02-28 19:22:00 Altagracia Todd [facility] CONSENT/REFUSAL FOR DIAGNOSIS AND TREATMENT 2023-02-28 18:31:38 Doctor Unassigned, Raven [facility] POCT TEST 2022-10-11 20:02:00 Mati Tabares [facility] FLU VACC ([id number]), 6 MO-64 YRS, .5ML, IM, QUAD (FLUCELVAX) 2022-07-20 18:53:48 Jovan Reyna [facility] POCT TEST 2022-07-20 18:42:00 Jovan Reyna [facility] GC & CHLAMYDIA AMPLIFIED ASSAY 2022-02-22 20:57:00 Lara Tabares [facility] GALV ONLY - VAGINAL PATHOGENS BY NUCLEIC ACID TESTING 2022-02-22 20:57:00 Lara Tabares [facility] HIV 1/2 AG-AB WITH REFLEX 2022-02-22 20:57:00 Lara Tabares [facility] GALV ONLY - SYPHILIS IGG/IGM 2022-02-22 20:57:00 Lara Tabares [facility] POCT URINALYSIS W/O SPECIFIC GRAVITY 2022-02-22 00:00:00 Lara Tabares [facility] Encounters Start Date/Time End Date/Time Encounter Type Admission Type Attending Clinicians Care Facility Care Department Encounter ID Source 2021-08-13 01:59:49 Outpatient [facility] [id number] [facility] 2023-10-22 12:36:00 2023-10-25 13:33:00 Inpatient [place] [facility]UST DANIEL [id number] [facility] 2023-10-22 12:36:00 2023-10-25 13:33:00 Hospital [facility] 1.2.840.114 350.1.13.10 4.2.7.2.686 [id number] [facility] 2023-10-23 08:00:00 2023-10-23 09:26:00 Surgery Zoya Marcos [facility] 1.2.840.114 350.1.13.10 4.2.7.2.686 [id number] [facility] 2023-10-22 19:58:00 2023-10-23 03:08:00 Anesthesia Event Maycol Bametta Turpin, Hortencia [facility] 1.2840.114 350.1.13.10 4.2.7.2.686 [id number] [facility] 2023-10-19 13:00:00 2023-10-19 13:13:08 Routine Visit Zulay Todd [employer] [facility] 1.2.114 350.1.13.10 4.2.7.2.686 [id number] [facility] 2023-10-19 13:00:00 2023-10-19 13:13:08 Outpatient R ZULAY TODD [facility] [id number] [facility] 2023-10-12 15:45:00 2023-10-12 16:01:50 Outpatient R ZULAY TODD [facility] [id number] [facility] 2023-10-12 15:45:00 2023-10-12 16:01:50 Routine [facility] [employer] [employer] 1.840.114 350.1.13.10 4.2.7.2.686 [id number] [facility] 2023-10-05 00:00:00 2023-10-05 00:00:00 Telephone Zulay Todd [employer] [facility] 1.2840.114 350.1.13.10 4.2.7.2.686 [id number] [facility] 2023-10-03 10:45:00 2023-10-03 11:32:01 Outpatient R LARA TABARES [facility] [id number] [facility] 2023-10-03 10:45:00 2023-10-03 11:32:01 Routine Visit Lara Tabares [employer] [facility] 1.2.840.114 350.1.13.10 4.2.7.2.686 [id number] [facility] 2023-09-28 11:00:00 2023-09-28 12:02:40 Outpatient R ZULAY TODD [facility] [id number] [facility] 2023-09-28 11:00:00 2023-09-28 12:02:40 Routine Visit Zulay Todd [employer] [facility] 1.2.840.114 350.1.13.10 4.2.7.2.686 [id number] [facility] 2023-09-22 00:00:00 2023-09-22 00:00:00 Refill Lara Tabares [employer] [facility] 1.2.840.114 350.1.13.10 4.2.7.2.686 [id number] [facility] 2023-09-15 09:00:00 2023-09-15 09:29:23 Outpatient R LARA TABARES [facility] [id number] [facility] 2023-09-15 09:00:00 2023-09-15 09:29:23 Routine Visit Lara Tabares [employer] [facility] 1.2840.114 350.1.13.10 4.2.7.2.686 [id number] [facility] 2023-08-29 16:00:00 2023-08-29 16:36:17 Outpatient R ZULAY TODD [facility] [id number] [facility] 2023-08-29 16:00:00 2023-08-29 16:36:17 Routine Visit Zulay Todd [employer] [facility] [facility] 1.2.840.114 350.1.13.10 4.2.7.2.686 [id number] [facility] 2023-08-15 16:00:00 2023-08-15 16:39:11 Outpatient R ZULAY TODD [facility] [id number] [facility] 2023-08-15 16:00:00 2023-08-15 16:39:11 Routine Visit Zulay Todd [employer] [facility] 1.2.840.114 350.1.13.10 4.2.7.2.686 [id number] [facility] 2023-08-15 00:00:00 2023-08-15 00:00:00 Letter (Out) [facility]ulay Todd [facility] [employer] [facility]ILD [facility] 1.2.840.114 350.1.13.10 4.2.7.2.686 [id number] [facility] 2023-08-10 11:00:00 2023-08-10 11:00:00 Outpatient R ZULAY TODD [facility] [id number] [facility] 2023-07-28 00:00:00 2023-07-28 00:00:00 Case Management Zulay Todd [facility] [employer] [facility]ILD [facility] 1.2.840.114 350.1.13.10 4.2.7.2.686 [id number] [facility] 2023-07-27 09:45:00 2023-07-27 10:32:57 Outpatient R ZULAY TODD [facility] [id number] [facility] 2023-07-27 09:45:00 2023-07-27 10:32:57 Routine Visit Zulay Todd [employer] [facility] 1..840.114 350.1.13.10 4.2.7.2.686 [id number] [facility] 2023-07-27 00:00:00 2023-07-27 00:00:00 Orders Only Doctor Unassigned, Raven [facility] 1.84.114 350.1.13.10 4.2.7.2.686 [id number] [facility] 2023-07-13 08:15:00 2023-07-13 09:04:44 Outpatient ANGELITA STEELE [facility] [id number] [facility] 2023-07-13 08:15:00 2023-07-13 09:04:44 Routine Visit Risk, Jordan-N p/High Angelita Wheeler [employer] [facility]ILD [facility] 1..840.114 350.1.13.10 4.2.7.2.686 [id number] [facility] 2023-07-13 08:00:00 2023-07-13 08:00:00 Outpatient R [facility] [id number] [facility] [facility] 2023-06-26 09:30:00 2023-06-26 11:11:05 Outpatient R LARA TABARES [facility] [id number] [facility] 2023-06-26 09:30:00 2023-06-26 11:11:05 Routine Visit Provider, Lara Alaniz [employer] [facility] & CHILD [facility] 1..840.114 350.1.13.10 4.2.7.2.686 [id number] 107 [id number] [facility] 2023-06-26 00:00:00 2023-06-26 00:00:00 Letter (Out) Francie Georges [employer] [facility] & CHILD [facility] 1.2.840.114 350.1.13.10 4.2.7.2.686 [id number] 107 [id number] [facility] 2023-06-15 13:00:00 2023-06-15 13:30:17 Outpatient ANGELITA STEELE [facility] [id number] [facility] 2023-06-15 13:00:00 2023-06-15 13:30:17 Routine Visit Risk, Ang-Rmchp-N p/High Angelita Wheeler [employer] [facility] CHILD [facility] 1.2.840.114 350.1.13.10 4.2.7.2.686 [id number] 107 [id number] [facility] 2023-06-15 13:00:00 2023-06-15 13:00:00 Outpatient ANGELITA STEELE [facility] [id number] [facility] 2023-06-15 00:00:00 2023-06-15 00:00:00 Telephone [facility] CHILD [facility] 1.2.840.114 350.1.13.10 4.2.7.2.686 [id number] 107 [id number] [facility] 2023-06-14 00:00:00 2023-06-14 00:00:00 Case Management Zulay Todd [employer] [facility] 1.2.840.114 350.1.13.10 4.2.7.2.686 [id number] 107 [id number] [facility] 2023-06-13 09:00:00 2023-06-13 09:50:13 Outpatient P THAO GANT [facility] [id number] [facility] 2023-06-13 09:00:00 2023-06-13 09:50:13 Wet Pan Operator Visit Ultrasound, Ana Young mesfin Best [employer] [facility] 1.2.840.114 350.1.13.10 4.2.7.2.686 [id number] [facility] 2023-05-23 00:00:00 2023-05-23 00:00:00 Patient Secure Madyson Gama [employer] [facility] 1.2.840.114 350.1.13.10 4.2.7.2.686 [id number] [facility] 2023-05-18 13:00:00 2023-05-18 13:59:53 Outpatient ANGELITA STEELE [facility] [id number] [facility] 2023-05-18 13:00:00 2023-05-18 13:59:53 Routine Visit Risk, Bal-Rmchp-N p/High Angelita Wheeler [employer] [facility] 1.2.840.114 350.1.13.10 4.2.7.2.686 [id number] 107 [id number] [facility] 2023-05-05 11:00:00 2023-05-05 11:00:00 Routine Visit Zulay Todd [employer] [facility]ILD [facility] 1.2.840.114 350.1.13.10 4.2.7.2.686 [id number] 107 [id number] [facility] 2023-05-05 11:00:00 2023-05-05 08:58:51 Outpatient ZULAY PENA [facility] [id number] [facility] 2023-05-05 08:30:00 2023-05-05 08:30:00 Outpatient R LARA TABARES [facility] [id number] [facility] 2023-04-27 14:00:00 2023-04-27 14:00:00 Outpatient R [facility] [id number] [facility] 2023-04-24 13:00:00 2023-04-24 13:00:00 Wet Pan Operator Visit [facility] Thao toure [employer] [facility] & CHILD [facility] 1.0.114 350.1.13.10 4.2.7.2.686 [id number] [facility] 2023-04-24 11:15:00 2023-04-24 12:00:00 Wet Pan Operator Visit 1, [facility] Thao Gant [employer] [facility] CHILD [facility] 1..114 350.1.13.10 4.2.7.2.686 [id number] [facility] 2023-04-24 13:00:00 2023-04-24 11:53:53 Outpatient R THAO GANT [facility] [id number] [facility] 2023-04-24 00:00:00 2023-04-24 00:00:00 Case Management Zulay Todd [employer] [facility] CHILD [facility] ..114 350.1.13.10 4.2.7.2.686 [id number] 107 [id number] [facility] 2023-04-21 00:00:00 2023-04-21 00:00:00 Telephone Margie Robins [facility] ..114 350.1.13.10 4.2.7.2.686 [id number] [facility] 2023-04-21 00:00:00 2023-04-21 00:00:00 Patient Secure Msg Doctor Unassigned, Raven [employer] [facility] CHILD [facility] 1.0.114 350.1.13.10 4.2.7.2.686 [id number] 107 [id number] [facility] 2023-04-14 10:30:00 2023-04-14 11:20:33 Wet Pan Operator Visit Lab, PierreRmchp Lara Tabares [employer] [facility] CHILD [facility] 1.2840.114 350.1.13.10 4.2.7.2.686 [id number] 107 [id number] [facility] 2023-04-14 09:45:00 2023-04-14 10:29:41 Outpatient R MARGIE MARISCAL [facility] [id number] [facility] 2023-04-14 09:45:00 2023-04-14 10:29:41 Telemedici ne Visit Margie Robins Swetha [employer] [facility] CHILD [facility] 1.840.114 350.1.13.10 4.2.7.2.686 [id number] 107 [id number] [facility] 2023-04-14 00:00:00 2023-04-14 00:00:00 Orders Only Doctor Unassigned, Raven [facility] 1.84.114 350.1.13.10 4.2.7.2.686 [id number] [facility] 2023-04-13 08:30:00 2023-04-13 08:30:00 Outpatient R [facility] [id number] [facility] 2023-04-10 00:00:00 2023-04-10 00:00:00 Telephone Margie Robins [employer] [facility] 1..114 350.1.13.10 4.2.7.2.686 [id number] 107 [id number] [facility] 2023-04-10 00:00:00 2023-04-10 00:00:00 Patient Secure Msg Doctor Unassigned, Raven [employer] [facility] CHILD [facility] 1.0.114 350.1.13.10 4.2.7.2.686 [id number] 107 [id number] [facility] 2023-03-30 14:30:00 2023-03-30 15:36:58 Outpatient R ANGELITA WHEELER [facility] [id number] [facility] 2023-03-30 14:30:00 2023-03-30 15:36:58 Routine Visit Risk, Ang-Rmchp-N p/High Angelita Wheeler [employer] [facility] CHILD [facility] 1.114 350.1.13.10 4.2.7.2.686 [id number] 107 [id number] [facility] 2023-03-30 13:15:00 2023-03-30 13:15:00 Outpatient R ANGELITA WHEELER [facility] [id number] [facility] 2023-03-28 14:15:00 2023-03-28 14:15:00 Outpatient R LARA TABARES [facility] [id number] [facility] 2023-02-28 14:15:00 2023-02-28 15:12:30 Outpatient R ZULAY TODD [facility] [id number] [facility] 2023-02-28 14:15:00 2023-02-28 15:12:30 Initial Visit Zulay Todd [employer] [facility] CHILD [facility] 1..114 350.1.13.10 4.2.7.2.686 [id number] 107 [id number] [facility] 2023-02-28 00:00:00 2023-02-28 00:00:00 Orders Only Doctor Unassigned, Raven [facility] 1.0.114 350.1.13.10 4.2.7.2.686 [id number] [facility] 2022-10-11 13:30:00 2022-10-11 14:37:39 Outpatient R LARA TABARES [facility] [id number] [facility] 2022-10-11 13:30:00 2022-10-11 14:37:39 Office Visit Lara Tabares [employer] [facility]ILD [facility] 1..840.114 350.1.13.10 4.2.7.2.686 [id number] 107 [id number] [facility] 2022-08-25 09:45:00 2022-08-25 10:41:13 Outpatient R ZULAY TODD [facility] [id number] [facility] 2022-08-25 09:45:00 2022-08-25 10:41:13 Office Visit Provider, Zulay Crow [employer] [facility] CHILD [facility] 1..840.114 350.1.13.10 4.2.7.2.686 [id number] 107 [id number] [facility] 2022-07-20 13:15:00 2022-07-20 14:04:15 Outpatient R JOVAN REYNA EMILY [facility] [id number] [facility] 2022-07-20 13:15:00 2022-07-20 14:04:15 Office Visit Provider, Jovan Ladd [employer] [facility] CHILD [facility] 1..840.114 350.1.13.10 4.2.7.2.686 [id number] 107 [id number] [facility] 2022-07-11 08:15:00 2022-07-11 08:15:00 Outpatient R LARA TABARES [facility] [id number] [facility] 2022-06-27 13:45:00 2022-06-27 13:45:00 Outpatient R LARA TABARES [facility] [id number] [facility] 2022-05-31 10:45:00 2022-05-31 10:45:00 Outpatient R LARA TABARES [facility] [id number] [facility] 2022-02-23 00:00:00 2022-02-23 00:00:00 Telephone Lara Tabares [employer] [facility] CHILD [facility] 1.2.840.114 350.1.13.10 4.2.7.2.686 [id number] 107 [id number] [facility] 2022-02-22 14:45:00 2022-02-22 15:58:43 Outpatient R LARA TABARES [facility] [id number] [facility] 2022-02-22 14:45:00 2022-02-22 15:58:43 Office Visit Lara Tabares [employer] [facility] 1.2840.114 350.1.13.10 4.2.7.2.686 [id number] 107 [id number] [facility] 2022-02-22 00:00:00 2022-02-22 00:00:00 Orders Only Doctor Unassigned, Raven [facility] 1.2840.114 350.1.13.10 4.2.7.2.686 [id number] [facility] 2022-02-22 00:00:00 2022-02-22 00:00:00 Letter (Out) Lara Tabares [employer] [facility] 1.2840.114 350.1.13.10 4.2.7.2.686 [id number] 107 [id number] [facility] 2021-12-28 15:00:00 2021-12-28 15:00:00 Outpatient R [facility] [id number] [facility] 2021-12-28 15:00:00 2021-12-28 15:00:00 Outpatient R LARA TABARES [facility] [id number] [facility] 2021-10-23 00:00:00 2021-10-23 00:00:00 Refjulia Annette Cruzily Carrillo [employer] [facility] CHILD [facility] 1.2.840.114 350.1.13.10 4.2.7.2.686 [id number] 107 [id number] [facility] 2021-10-05 14:30:00 2021-10-05 14:49:24 Office Visit Jovan Cruz [employer] [facility] CHILD [facility] 1.2.840.114 350.1.13.10 4.2.7.2.686 [id number] 107 [id number] [facility] 2021-10-05 14:30:00 2021-10-05 14:49:24 Outpatient R JOVAN CRUZ [facility] [id number] [facility] 2021-10-05 14:30:00 2021-10-05 14:30:00 Outpatient R JOVAN CRUZ [facility] [id number] [facility] 2021-07-13 14:11:12 2021-07-13 15:00:50 Office Visit Lara Tabares [facility] 1.2.840.114 350.1.13.10 4.2.7.2.686 [id number] 107 [id number] [facility] 2021-07-13 14:15:00 2021-07-13 14:15:00 Outpatient R LARA TABARES [facility] [id number] [facility] 2021-04-22 15:30:00 2021-04-22 15:30:00 Outpatient R [facility] [id number] [facility] 2021-04-20 16:09:50 2021-04-20 16:25:01 Nurse Visit Visit, Bal-Rmchp Nurse Lara Tabares [employer] [facility] 1.840.114 350.1.13.10 4.2.7.2.686 [id number] 107 [id number] [facility] 2021-04-20 16:00:00 2021-04-20 16:00:00 Outpatient R [facility] [id number] [facility] 2021-02-23 14:03:58 2021-02-23 15:26:49 Office Visit Lara Tabares [employer] [facility] 1.840.114 350.1.13.10 4.2.7.2.686 [id number] 107 [id number] [facility] 2021-02-23 14:15:00 2021-02-23 14:15:00 Outpatient R LARA TABARES [facility] [id number] [facility] 2021-02-23 00:00:00 2021-02-23 00:00:00 Telephone Lara Tabares [employer] [facility] 1.840.114 350.1.13.10 4.2.7.2.686 [id number] 107 [id number] [facility] 2021-01-27 15:33:41 2021-01-27 15:48:41 Nurse Visit Visit, Ang-Rmchp Nurse Lara Tabares [employer] [facility] 1.840.114 350.1.13.10 4.2.7.2.686 [id number] 107 [id number] [facility] 2021-01-27 15:30:00 2021-01-27 15:30:00 Outpatient R [facility] [id number] [facility] 2021-01-05 00:00:00 2021-01-05 00:00:00 Patient Outreach Benjamin Marcos [facility] 1..840.114 350.1.13.10 4.2.7.2.686 [id number] [facility] 2020-11-04 14:06:55 2020-11-04 14:39:49 Nurse Visit Visit, Lara Shultz [employer] [facility] 1..114 350.1.13.10 4.2.7.2.686 [id number] 107 [id number] [facility] 2020-11-04 14:00:00 2020-11-04 14:00:00 Outpatient R LARA TABARES [facility] [id number] [facility] 2020-10-21 15:00:00 2020-10-21 15:00:00 Outpatient R [facility] [id number] [facility] 2020-10-13 13:30:00 2020-10-13 13:30:00 Outpatient R [facility] [id number] [facility] 2020-10-07 14:55:00 2020-10-07 15:17:32 Nurse Visit Visit, Lara Shultz [employer] [facility] CHILD [facility] 1.840.114 350.1.13.10 4.2.7.2.686 [id number] 107 [id number] [facility] 2020-10-07 15:00:00 2020-10-07 15:00:00 Outpatient R LARA TABARES [facility] [id number] [facility] 2020-10-07 00:00:00 2020-10-07 00:00:00 Orders Only Doctor Unassigned, Raven [facility] 1..114 350.1.13.10 4.2.7.2.686 [id number] [facility] 2020-09-29 13:39:32 2020-09-29 14:03:49 Office Visit Lara Tabares [employer] [facility] 1..840.114 350.1.13.10 4.2.7.2.686 [id number] 107 [id number] [facility] 2020-09-29 13:30:00 2020-09-29 13:30:00 Outpatient R ANJUMIRIANMINORLARA [facility] [id number] [facility] 2020-09-22 15:15:00 2020-09-22 15:15:00 Outpatient R SABRINA LARA [facility] [id number] [facility] 2020-09-16 14:45:00 2020-09-16 14:45:00 Outpatient R SABRINA LARA [facility] [id number] [facility] 2020-09-15 10:30:00 2020-09-15 10:30:00 Outpatient R SABRINA LARA [facility] [id number] [facility] 2020-08-26 15:17:52 2020-08-26 16:11:07 Office Visit Lara Tabares [employer] [facility] 1.840.114 350.1.13.10 4.2.7.2.686 [id number] 107 [id number] [facility] 2020-08-26 15:00:00 2020-08-26 15:00:00 Outpatient R LARA TABARES [facility] [id number] [facility] 2020-08-18 15:15:00 2020-08-18 15:15:00 Outpatient R LARA TABARES [facility] [id number] [facility] 2020-05-18 15:19:27 2020-05-18 16:23:06 Office Visit Lara Tabares Roshunda R [employer] [facility] 1..840.114 350.1.13.10 4.2.7.2.686 [id number] 107 [id number] [facility] 2020-05-18 15:15:00 2020-05-18 15:15:00 Outpatient JOVANA SMITH [facility] [id number] [facility] 2020-04-27 09:14:53 2020-04-27 09:45:07 Routine Visit Jovana Hugo [employer] [facility] 1.2.840.114 350.1.13.10 4.2.7.2.686 [id number] 107 [id number] [facility] 2020-04-27 09:30:00 2020-04-27 09:30:00 Outpatient JOVANA SMITH [facility] [id number] [facility] 2020-04-04 20:05:00 2020-04-06 19:30:00 Hospital Encounter Adriana Sanabria [facility] 1.2.840.114 350.1.13.10 4.2.7.2.686 [id number] [facility] 2020-04-06 00:00:00 2020-04-06 00:00:00 Abstract Lara Tabares [employer] [facility] 1.2.840.114 350.1.13.10 4.2.7.2.686 [id number] 107 [id number] [facility] 2020-04-01 15:28:59 2020-04-01 15:57:53 Routine Visit Jovana Hugo [employer] [facility] 1.2.840.114 350.1.13.10 4.2.7.2.686 [id number] 107 [id number] [facility] 2020-04-01 15:45:00 2020-04-01 15:45:00 Outpatient JOVANA SMITH [facility] [id number] [facility] 2020-03-31 08:29:04 2020-03-31 08:53:06 Wet Pan Operator Visit Ultrasound, Dank Mejia [employer] [facility] CH[facility] 1.2840.114 350.1.13.10 4.2.7.2.686 [id number] [facility] 2020-03-31 08:30:00 2020-03-31 08:30:00 Outpatient P [facility] [id number] [facility] 2020-03-26 14:56:31 2020-03-26 15:35:28 Routine Visit Provider, Venus Turcios [employer] [facility] 1.2840.114 350.1.13.10 4.2.7.2.686 [id number] 107 [id number] [facility] 2020-03-26 15:00:00 2020-03-26 15:00:00 Outpatient R [facility] [id number] [facility] 2020-03-20 00:00:00 2020-03-20 00:00:00 Telephone Lara Tabares [employer] [facility] 1.840.114 350.1.13.10 4.2.7.2.686 [id number] 107 [id number] [facility] 2020-03-18 12:45:09 2020-03-18 13:20:10 Routine Visit Provider, Venus Turcios [employer] [facility] 1.2840.114 350.1.13.10 4.2.7.2.686 [id number] 107 [id number] [facility] 2020-03-18 12:45:00 2020-03-18 12:45:00 Outpatient R [facility] [id number] [facility] 2020-03-13 00:00:00 2020-03-13 00:00:00 Telephone Lara Tabares [employer] [facility] 1.2840.114 350.1.13.10 4.2.7.2.686 [id number] 107 [id number] [facility] 2020-03-12 00:00:00 2020-03-12 00:00:00 Telephone WillieminorLara Lou [employer] [facility] 1.2.84.114 350.1.13.10 4.2.7.2.686 [id number] 107 [id number] [facility] 2020-03-11 10:14:34 2020-03-11 10:29:34 Routine Visit Lara Tabares [employer] [facility] 1.84.114 350.1.13.10 4.2.7.2.686 [id number] 107 [id number] [facility] 2020-03-11 10:15:00 2020-03-11 10:15:00 Outpatient R LARA TABARES [facility] [id number] [facility] 2020-02-26 11:44:51 2020-02-26 13:42:56 Telemedici ne Visit Lara Tabares [employer] [facility] 1..840.114 350.1.13.10 4.2.7.2.686 [id number] 107 [id number] [facility] 2020-02-26 12:45:00 2020-02-26 12:45:00 Outpatient R LARA TABARES [facility] [id number] [facility] 2020-02-20 10:22:58 2020-02-20 10:33:44 Nurse Visit Visit, Ang-Rmchp Nurse Lara Tabares [employer] [facility] 1.2.840.114 350.1.13.10 4.2.7.2.686 [id number] 107 [id number] [facility] 2020-02-20 10:00:00 2020-02-20 10:00:00 Outpatient R LARA TABARES [facility] [id number] [facility] 2020-02-20 00:00:00 2020-02-20 00:00:00 Orders Only Doctor Unassigned, Raven [facility] 1.114 350.1.13.10 4.2.7.2.686 [id number] [facility] 2020-02-19 00:00:00 2020-02-19 00:00:00 Telephone Lara Tabares [employer] [facility] 1.114 350.1.13.10 4.2.7.2.686 [id number] 107 [id number] [facility] 2020-02-10 10:45:00 2020-02-10 10:45:00 Outpatient R LARA TABARES [facility] [id number] [facility] 2020-02-10 10:30:00 2020-02-10 10:30:00 Outpatient R LARA TABARES [facility] [id number] [facility] 2020-01-31 14:06:08 2020-01-31 14:54:35 Routine Visit Lara Tabares [facility]AA[employer] [employer] [facility] 1.114 350.1.13.10 4.2.7.2.686 [id number] 107 [id number] [facility] 2020-01-31 14:00:00 2020-01-31 14:00:00 Outpatient R LARA TABARES [facility] [id number] [facility] 2020-01-28 15:00:00 2020-01-28 15:00:00 Outpatient R LARA TABARES [facility] [id number] [facility] 2020-01-15 00:00:00 2020-01-15 00:00:00 Telephone Lara Tabares [employer] [facility] 1.114 350.1.13.10 4.2.7.2.686 [id number] 107 [id number] [facility] 2020-01-15 00:00:00 2020-01-15 00:00:00 Telephone Lara Tabares [employer] [facility] & [facility] 1.2.840.114 350.1.13.10 4.2.7.2.686 [id number] 107 [id number] [facility] 2020-01-14 14:05:01 2020-01-14 15:15:00 Routine Visit Lara Tabares VAAYESHA [employer] [facility] & CHILD [facility] 1.2.840.114 350.1.13.10 4.2.7.2.686 [id number] 107 [id number] [facility] 2020-01-14 14:00:00 2020-01-14 14:00:00 Outpatient R WILLIEMINORLARA [facility] [id number] [facility] 2019-12-31 00:00:00 2019-12-31 00:00:00 Abstract Lara Tabares [employer] [facility] & [facility] 1.2.840.114 350.1.13.10 4.2.7.2.686 [id number] 107 [id number] [facility] 2019-12-30 12:45:00 2019-12-30 12:45:00 Outpatient R WILLIEAJIT JACKOLA [facility] [id number] [facility] 2019-12-17 09:50:07 2019-12-17 10:51:34 Routine Visit Lara Tabares [employer] [facility] & [facility]ILD [facility] 1.2.840.114 350.1.13.10 4.2.7.2.686 [id number] 107 [id number] [facility] 2019-12-17 09:30:00 2019-12-17 09:30:00 Outpatient R WILLIEMINORLARA [facility] [id number] [facility] 2019-12-06 00:00:00 2019-12-06 00:00:00 Abstract Lara Tabares [employer] [facility] & [facility] 1.2.840.114 350.1.13.10 4.2.7.2.686 [id number] 107 [id number] [facility] 2019-12-05 12:57:02 2019-12-05 13:27:02 Wet Pan Operator Visit Ultrasound, Dank Mejia [employer] [facility] 1.2.840.114 350.1.13.10 4.2.7.2.686 [id number] [facility] 2019-11-29 13:30:34 2019-11-29 14:00:19 Routine Visit Lara Tabares [employer] [facility] & [facility]ILD [facility] 1.2.840.114 350.1.13.10 4.2.7.2.686 [id number] 107 [id number] [facility] 2019-11-01 12:46:05 2019-11-13 14:07:26 Routine Visit Lara Tabares [employer] [facility] 1.2.840.114 350.1.13.10 4.2.7.2.686 [id number] 107 [id number] [facility] 2019-11-13 13:52:18 2019-11-13 14:07:18 Wet Pan Operator Visit Lab, PierreRmchp Lara Tabares [employer] [facility] 1.2.840.114 350.1.13.10 4.2.7.2.686 [id number] 107 [id number] [facility] 2019-11-13 00:00:00 2019-11-13 00:00:00 Telephone Lara Tabaers [employer] [facility] 1.2.840.114 350.1.13.10 4.2.7.2.686 [id number] 107 [id number] [facility] 2019-11-12 00:00:00 2019-11-12 00:00:00 Abstract Lara Tabares [employer] [facility] 1.2.840.114 350.1.13.10 4.2.7.2.686 [id number] 107 [id number] [facility] 2019-11-12 00:00:00 2019-11-12 00:00:00 Telephone Lara Tabares [employer] [facility] 1.2.840.114 350.1.13.10 4.2.7.2.686 [id number] 107 [id number] [facility] Results Test Description Test Time Test Comments Results Result Co mments Source [facility] SY[facility]IL[facility] IGG/[id number] 16:43:09* Test Item Value Reference Range Interpretation Comme nts Syphilis IgG/IgM (test code = 34022-2) Non-reactive Non-reactive MINE (test code = MINE) Non-reactive - No serologic evidence of T. pallidum infection. Cannot exclude incubating or early syphilis. Submit a second specimen in 2-4 weeks if syphilis is clinically suspected. Equivocal - Further testing to follow. Reactive - Further testing to follow. Lab Interpretation (test code = 89417-5) Normal [facility] (D) IMMUNE [id number] 11:37:48* Test Item Value Reference Range Interpretation Comme nts RHIG CANDIDATE? (test code = 5188) No- see comment Patient is not a candidate for RhIg- Patient is Rh Positive.Performed at [facility] Blood [address] Free: [phone] No. [id number] [facility] (D) IMMUNE [id number] 11:37:48* Test Item Value Reference Range Interpretation Comme nts RHIG CANDIDATE? (test code = 5188) No- see comment Patient is not a candidate for RhIg- Patient is Rh Positive.Performed at [facility] Blood [address] [place] [address] Free: [phone] No. [id number] [facility] Cord [id number] 08:09:06* Test Item Value Reference Range Interpretation Comme nts BASE EXCESS, CORD (test code = 7506317695) -2.3 mEq/L QUES AC PH, CORD (BEAKER) (test code = 1659929614) 7.32 7.18-7.38 PC02, CORD (test code = 2105322628) 48 See_Comment [Automated messa ge] The system which generated this result transmitted reference range: 32 - 66 mmHg. The reference range was not used to interpret this result as normal/abnormal. PO2, CORD (test code = 8701575804) 16 See_Comment [Automated messa ge] The system which generated this result transmitted reference range: 10 - 30 mmHg. The reference range was not used to interpret this result as normal/abnormal. BICARBONATE, CORD (test code = 0723680220) 24 See_Comment [Automated messa ge] The system which generated this result transmitted reference range: 17 - 27 mEq/L. The reference range was not used to interpret this result as normal/abnormal. [facility] Cord [id number] 08:09:06* Test Item Value Reference Range Interpretation Comme nts BASE EXCESS, CORD (test code = 6289683173) -2.3 mEq/L QUES AC PH, CORD (BEAKER) (test code = 6045223262) 7.32 7.18-7.38 PC02, CORD (test code = 6144729584) 48 See_Comment [Automated messa ge] The system which generated this result transmitted reference range: 32 - 66 mmHg. The reference range was not used to interpret this result as normal/abnormal. PO2, CORD (test code = 4759199908) 16 See_Comment [Automated messa ge] The system which generated this result transmitted reference range: 10 - 30 mmHg. The reference range was not used to interpret this result as normal/abnormal. BICARBONATE, CORD (test code = 4636613579) 24 See_Comment [Automated messa ge] The system which generated this result transmitted reference range: 17 - 27 mEq/L. The reference range was not used to interpret this result as normal/abnormal. [facility] Cord [id number] 08:08:35* Test Item Value Reference Range Interpretation Comme nts VENOUS BASE EXCESS, CORD (test code = 6102525708) 0.3 mEq/L VENOUS PH, CORD (test code = 4262285827) 7.43 7.25-7.45 VENOUS PC02, CORD (test code = 2207401698) 38 See_Comment [Automated messa ge] The system which generated this result transmitted reference range: 27 - 49 mmHg. The reference range was not used to interpret this result as normal/abnormal. VENOUS PO2, CORD (test code = 6181461222) 32 See_Comment [Automated me ssage] The system which generated this result transmitted reference range: 17 - 41 mmHg. The reference range was not used to interpret this result as normal/abnormal. VENOUS BICARBONATE, CORD (test code = 2378246868) 24 See_Comment QUES [Automated message] The system which generated this result transmitted reference range: 12 - 29 mEq/L. The reference range was not used to interpret this result as normal/abnormal. [facility] Cord [id number] 08:08:35* Test Item Value Reference Range Interpretation Comme nts VENOUS BASE EXCESS, CORD (test code = 7949003082) 0.3 mEq/L VENOUS PH, CORD (test code = 0705437966) 7.43 7.25-7.45 VENOUS PC02, CORD (test code = 5494083128) 38 See_Comment [Automated messa ge] The system which generated this result transmitted reference range: 27 - 49 mmHg. The reference range was not used to interpret this result as normal/abnormal. VENOUS PO2, CORD (test code = 8286725246) 32 See_Comment [Automated me ssage] The system which generated this result transmitted reference range: 17 - 41 mmHg. The reference range was not used to interpret this result as normal/abnormal. VENOUS BICARBONATE, CORD (test code = 2323799387) 24 See_Comment QUES [Automated message] The system which generated this result transmitted reference range: 12 - 29 mEq/L. The reference range was not used to interpret this result as normal/abnormal. [id number]00[facility]am Severino DO ? ? 10/22/2023 ?8:02 PM Central Neuraxial Block Date/Time: 10/22/2023 8:01 PM Performed by: Bam Severino, DOAuthorized by: Hortencia Turpin MD ?Patient Location: OBReason for Block: OB request, Patient request and Labor analgesiaStaff: ?Anesthesiologist: Hortencia Turpin MD ?Resident/DATA PROCESSING MANAGER: Zacarias Christie MD ?Performed by: resident/CRNAPreanesthetic Checklist: patient identified, IV checked, risks and benefits explained, monitors and equipment checked, timeout performed, pre-op evaluation, site marked and anesthesia consentProcedure: ?Type of Neuraxial: Epidural ?Epidural Description: 1st at [facility] ? Sterility Prep cap, drape, gloves, mask and hand hygiene ? ?Sedation Level no sedation ?Patient Position: sitting ?Prep: Betadine and patient draped ? ?Monitoring: heart rate, continuous pulse ox, heart rate / toco and NIBP ?Location: lumbar (1-5) ?Lumbar: L4-L5 ?Approach: midline ? ?Technique: catheter and MICHELLE saline ?Guidance with: landmark technique}Epidural/Spinal [place] and/or Catheter: ?Epidural/Spinal Kit: BBun ?Needle Type: Tuohy ?Needle Gauge: 17 G ?Needle Length: 3.5 in (8.89 cm) ?Needle Insertion Depth: 5 ?Catheter Type: multiport ? ?Catheter Size: 19 G ? ?Catheterat Skin Depth: 10 ?Number of Attempts: 1 ?Test Dose: lidocaine 1.5% with epinephrine 1-to-200,000 and negative ? ?Dose: 5 cc ? ?Catheter Securement Method: surgical tape, Tegaderm and liquid medical adhesiveAssessment: ?Procedure Assessment: patient tolerated procedure well with no complicationsNotes: ? [facility] WITH [id number] 21:51:35* Test Item Value Reference Range Interpretation Comme nts HIV Semi-quantitative (test code = 79955-2) 0.07 Negative MINE (test code = MINE) Non-reactive for HIV-1 antigen and HIV-1/HIV-2 antibodies. ?No laboratory evidence of HIV infection. ?Repeat in 2-4 weeks if acute HIV infection is suspected. [facility] 1/2 AG-AB WITH [id number] 21:51:35* Test Item Value Reference Range Interpretation Comme nts HIV Semi-quantitative (test code = 94673-5) 0.07 Negative MINE (test code = MINE) Non-reactive for HIV-1 antigen and HIV-1/HIV-2 antibodies. ?No laboratory evidence of HIV infection. ?Repeat in 2-4 weeks if acute HIV infection is suspected. [facility] B Surface [id number] 21:41:51 * Test Item Value Reference Range Interpretation Comme nts HBsAg Semi-Quantitative (vivien t code = 5195-3) 0.10 Negative [facility] B Surface [id number] 21:41:51 * Test Item Value Reference Range Interpretation Comme nts HBsAg Semi-Quantitative (vivien t code = 5195-3) 0.10 Negative [facility] [id number] 20:13:56* Test Item Value Reference Range Interpretation Comme nts WBC (test code = 6690-2) 8.89 See_Comment [Automated deeplocala ge] The system which generated this result transmitted reference range: 4.30 - 11.10 10*3/?L. The reference range was not used to interpret this result as normal/abnormal. RBC (test code = 789-8) 4.63 See_Comment [Automated deeplocala ge] The system which generated this result transmitted reference range: 3.93 - 5.25 10*6/?L. The reference range was not used to interpret this result as normal/abnormal. HGB (test code = 718-7) 9.4 g/dL 11.6-15.0 L HCT (test code = 4544-3) 33.2 % 35.7-45.2 L MCV (test code = 787-2) 71.7 fL 80.6-95.5 L MCH (test code = 785-6) 20.3 pg 25.9-32.8 L MCHC (test code = 786-4) 28.3 g/dL 31.6-35.1 L RDW-SD (test code = 20220-0) 65.0 fL 39.0-49.9 H RDW-CV (test code = 788-0) 28.1 % 12.0-15.5 H PLT (test code = 777-3) 321 See_Comment [Automated deeplocala ge] The system which generated this result transmitted reference range: 166 - 358 10*3/?L. The reference range was not used to interpret this result as normal/abnormal. MPV (test code = 31388-0) 11.3 fL 9.5-12.9 IPF % (test code = 2658976070) 7.3 % 1.3-7.7 Platelet count measured by fluorescence method. NRBC/100 WBC (test code = 6257540834) 0.2 See_Comment [Automated [employer] ssage] The system which generated this result transmitted reference range: 0.0 - 10.0 /100 WBCs. The reference range was not used to interpret this result as normal/abnormal. NRBC x10^3 (test code = 1871551110) 0.02 See_Comment [Automated deeplocala ge] The system which generated this result transmitted reference range: 10*3/?L. The reference range was not used to interpret this result as normal/abnormal. GRAN MAT (NEUT) % (test code = 770-8) 67.5 % IMM GRAN % (test code = 6242757973) 1.20 % LYMPH % (test code = 736-9) 22.8 % MONO % (test code = 5905-5) 5.1 % EOS % (test code = 713-8) 2.6 % BASO % (test code = 706-2) 0.8 % GRAN MAT x10^3(ANC) (test code = 1937809983) 6.00 10*3/uL 1.88-7.09 IMM GRAN x10^3 (test code = 7044645023) 0.11 10*3/uL 0.00-0.06 H LYMPH x10^3 (test code = 731-0) 2.03 10*3/uL 1.32-3.29 MONO x10^3 (test code = 742-7) 0.45 10*3/uL 0.33-0.92 EOS x10^3 (test code = 711-2) 0.23 10*3/uL 0.03-0.39 BASO x10^3 (test code = 704-7) 0.07 10*3/uL 0.01-0.07 Lab Interpretation (test code = 12622-9) Abnormal [facility] with Tvlvspveadyg5811-75-27 20:13:56* Test Item Value Reference Range Interpretation Comme nts WBC (test code = 6690-2) 8.89 See_Comment [Automated deeplocala ge] The system which generated this result transmitted reference range: 4.30 - 11.10 10*3/?L. The reference range was not used to interpret this result as normal/abnormal. RBC (test code = 789-8) 4.63 See_Comment [Automated deeplocala ge] The system which generated this result transmitted reference range: 3.93 - 5.25 10*6/?L. The reference range was not used to interpret this result as normal/abnormal. HGB (test code = 718-7) 9.4 g/dL 11.6-15.0 L HCT (test code = 4544-3) 33.2 % 35.7-45.2 L MCV (test code = 787-2) 71.7 fL 80.6-95.5 L MCH (test code = 785-6) 20.3 pg 25.9-32.8 L MCHC (test code = 786-4) 28.3 g/dL 31.6-35.1 L RDW-SD (test code = 60584-0) 65.0 fL 39.0-49.9 H RDW-CV (test code = 788-0) 28.1 % 12.0-15.5 H PLT (test code = 777-3) 321 See_Comment [Automated deeplocala ge] The system which generated this result transmitted reference range: 166 - 358 10*3/?L. The reference range was not used to interpret this result as normal/abnormal. MPV (test code = 04612-6) 11.3 fL 9.5-12.9 IPF % (test code = 7750605034) 7.3 % 1.3-7.7 Platelet count measured by fluorescence method. NRBC/100 WBC (test code = 9652451698) 0.2 See_Comment [Automated [employer] ssage] The system which generated this result transmitted reference range: 0.0 - 10.0 /100 WBCs. The reference range was not used to interpret this result as normal/abnormal. NRBC x10^3 (test code = 5811072532) 0.02 See_Comment [Automated messa ge] The system which generated this result transmitted reference range: 10*3/?L. The reference range was not used to interpret this result as normal/abnormal. GRAN MAT (NEUT) % (test code = 770-8) 67.5 % IMM GRAN % (test code = 1754382786) 1.20 % LYMPH % (test code = 736-9) 22.8 % MONO % (test code = 5905-5) 5.1 % EOS % (test code = 713-8) 2.6 % BASO % (test code = 706-2) 0.8 % GRAN MAT x10^3(ANC) (test code = 2682487440) 6.00 10*3/uL 1.88-7.09 IMM GRAN x10^3 (test code = 0275941423) 0.11 10*3/uL 0.00-0.06 H LYMPH x10^3 (test code = 731-0) 2.03 10*3/uL 1.32-3.29 MONO x10^3 (test code = 742-7) 0.45 10*3/uL 0.33-0.92 EOS x10^3 (test code = 711-2) 0.23 10*3/uL 0.03-0.39 BASO x10^3 (test code = 704-7) 0.07 10*3/uL 0.01-0.07 Lab Interpretation (test code = 65254-4) [facility]normal [facility] - ONCE [id number] 19:58:00 * Test Item Value Reference Range Interpretation Comme nts ABO & RH (test code = 20) O POSITIVE IAT (test code = 1185) Negative [facility] ON[facility] [id number] 19:58:00 * Test Item Value Reference Range Interpretation Comme nts ABO & RH (test code = 20) O POSITIVE IAT (test code = 1185) Negative [facility] SPECIFIC [id number] 21:35:00* Test Item Value Reference Range Interpretation Comme nts POCT U SP GRAV (test code = 3255) . 1.005-1.025 POCT PH U (test code = 3254) 6 mg/dl 5-8 POCT U LEUK EST (test code = 3263) 1+ Negative - Negative POCT U NIT (test code = 3262) Neg Negative - Negati ve POCT U PROT (test code = 3259) Trace Negative - Negat saadia POCT U GLU (test code = 3256) Nml Negative - Negati ve POCT U KETONE (test code = 3258) None Negative - Neg ative POCT U UROBILI (test code = 3260) . 0.2-1 POCT U BILI (test code = 3261) . Negative - Negat saadia POCT U BLD (test code = 3257) Trace Negative - Negati ve POCT U COLOR (test code = 3266) . POCT U APPEAR (test code = 3267) . [facility] URINALYSIS W SPECIFIC [id number] 17:37:00* Test Item Value Reference Range Interpretation Comme nts POCT U SP GRAV (test code = 3255) . 1.005-1.025 POCT PH U (test code = 3254) . 5-8 POCT U LEUK EST (test code = 3263) . Negative - N egative POCT U NIT (test code = 3262) . Negative - Negati ve POCT U PROT (test code = 3259) Trace Negative - Negat saadia POCT U GLU (test code = 3256) Nml Negative - Negati ve POCT U KETONE (test code = 3258) . Negative - Neg ative POCT U UROBILI (test code = 3260) . 0.2-1 POCT U BILI (test code = 3261) . Negative - Negat saadia POCT U BLD (test code = 3257) . Negative - Negati ve POCT U COLOR (test code = 3266) POCT U APPEAR (test code = 3267) [facility] URINALYSIS W SPECIFIC [id number] 17:19:00* Test Item Value Reference Range Interpretation Comme nts POCT U SP GRAV (test code = 3255) * 1.005-1.025 POCT PH U (test code = 3254) 7 mg/dl 5-8 POCT U LEUK EST (test code = 3263) trace Negative - Negative POCT U NIT (test code = 3262) negative Negative - Negati ve POCT U PROT (test code = 3259) trace Negative - Negat saadia POCT U GLU (test code = 3256) negative Negative - Negati ve POCT U KETONE (test code = 3258) negative Negative - Neg ative POCT U UROBILI (test code = 3260) * 0.2-1 POCT U BILI (test code = 3261) * Negative - Negat saadia POCT U BLD (test code = 3257) negative Negative - Negati ve POCT U COLOR (test code = 3266) * POCT U APPEAR (test code = 3267) * [facility] URINALYSIS W SPECIFIC [id number] 14:58:00* Test Item Value Reference Range Interpretation Comme nts POCT U SP GRAV (test code = 3255) . 1.005-1.025 POCT PH U (test code = 3254) . 5-8 POCT U LEUK EST (test code = 3263) . Negative - N egative POCT U NIT (test code = 3262) . Negative - Negati ve POCT U PROT (test code = 3259) TRACE Negative - Negat saadia POCT U GLU (test code = 3256) NEG Negative - Negati ve POCT U KETONE (test code = 3258) . Negative - Neg ative POCT U UROBILI (test code = 3260) . 0.2-1 POCT U BILI (test code = 3261) . Negative - Negat saadia POCT U BLD (test code = 3257) . Negative - Negati ve POCT U COLOR (test code = 3266) . POCT U APPEAR (test code = 3267) . [facility] WITH [id number] 08:47:47* Test Item Value Reference Range Interpretation Comme nts HIV Semi-quantitative (test code = 44047-0) 0.11 Negative MINE (test code = MINE) Non-reactive for HIV-1 antigen and HIV-1/HIV-2 antibodies. ?No laboratory evidence of HIV infection. ?Repeat in 2-4 weeks if acute HIV infection is suspected. [facility] URINALYSIS W SPECIFIC [id number] 22:37:00* Test Item Value Reference Range Interpretation Comme nts POCT U SP GRAV (test code = 3255) . 1.005-1.025 POCT PH U (test code = 3254) 6 mg/dl 5-8 POCT U LEUK EST (test code = 3263) Neg Negative - Negative POCT U NIT (test code = 3262) Neg Negative - Negati ve POCT U PROT (test code = 3259) Trace Negative - Negat saadia POCT U GLU (test code = 3256) Nml Negative - Negati ve POCT U KETONE (test code = 3258) None Negative - Neg ative POCT U UROBILI (test code = 3260) . 0.2-1 POCT U BILI (test code = 3261) . Negative - Negat saadia POCT U BLD (test code = 3257) Trace Negative - Negati ve POCT U COLOR (test code = 3266) . POCT U APPEAR (test code = 3267) . [facility] URINALYSIS W SPECIFIC [id number] 22:37:00* Test Item Value Reference Range Interpretation Comme nts POCT U SP GRAV (test code = 3255) . 1.005-1.025 POCT PH U (test code = 3254) 6 mg/dl 5-8 POCT U LEUK EST (test code = 3263) Neg Negative - Negative POCT U NIT (test code = 3262) Neg Negative - Negati ve POCT U PROT (test code = 3259) Trace Negative - Negat saadia POCT U GLU (test code = 3256) Nml Negative - Negati ve POCT U KETONE (test code = 3258) None Negative - Neg ative POCT U UROBILI (test code = 3260) . 0.2-1 POCT U BILI (test code = 3261) . Negative - Negat saadia POCT U BLD (test code = 3257) Trace Negative - Negati ve POCT U COLOR (test code = 3266) . POCT U APPEAR (test code = 3267) . [facility] URINALYSIS W SPECIFIC [id number] 22:37:00* Test Item Value Reference Range Interpretation Comme nts POCT U SP GRAV (test code = 3255) . 1.005-1.025 POCT PH U (test code = 3254) 6 mg/dl 5-8 POCT U LEUK EST (test code = 3263) Neg Negative - Negative POCT U NIT (test code = 3262) Neg Negative - Negati ve POCT U PROT (test code = 3259) Trace Negative - Negat saadia POCT U GLU (test code = 3256) Nml Negative - Negati ve POCT U KETONE (test code = 3258) None Negative - Neg ative POCT U UROBILI (test code = 3260) . 0.2-1 POCT U BILI (test code = 3261) . Negative - Negat saadia POCT U BLD (test code = 3257) Trace Negative - Negati ve POCT U COLOR (test code = 3266) . POCT U APPEAR (test code = 3267) . [facility] URINALYSIS W SPECIFIC [id number] 21:18:00* Test Item Value Reference Range Interpretation Comme nts POCT U SP GRAV (test code = 3255) . 1.005-1.025 POCT PH U (test code = 3254) 6 mg/dl 5-8 POCT U LEUK EST (test code = 3263) 1+ Negative - Negative POCT U NIT (test code = 3262) Neg Negative - Negati ve POCT U PROT (test code = 3259) Trace Negative - Negat saadia POCT U GLU (test code = 3256) Nml Negative - Negati ve POCT U KETONE (test code = 3258) None Negative - Neg ative POCT U UROBILI (test code = 3260) . 0.2-1 POCT U BILI (test code = 3261) . Negative - Negat saadia POCT U BLD (test code = 3257) Trace Negative - Negati ve POCT U COLOR (test code = 3266) POCT U APPEAR (test code = 3267) [facility] URINALYSIS W SPECIFIC [id number] 16:00:00* Test Item Value Reference Range Interpretation Comme nts POCT U SP GRAV (test code = 3255) . 1.005-1.025 POCT PH U (test code = 3254) 5 mg/dl 5-8 POCT U LEUK EST (test code = 3263) 1+ Negative - Negative POCT U NIT (test code = 3262) Neg Negative - Negati ve POCT U PROT (test code = 3259) 1+ Negative - Negat saadia POCT U GLU (test code = 3256) Trace Negative - Negati ve POCT U KETONE (test code = 3258) None Negative - Neg ative POCT U UROBILI (test code = 3260) . 0.2-1 POCT U BILI (test code = 3261) . Negative - Negat saadia POCT U BLD (test code = 3257) Trace Negative - Negati ve POCT U COLOR (test code = 3266) POCT U APPEAR (test code = 3267) [facility] URINALYSIS W SPECIFIC [id number] 13:31:00* Test Item Value Reference Range Interpretation Comme nts POCT U SP GRAV (test code = 3255) . 1.005-1.025 POCT PH U (test code = 3254) . 5-8 POCT U LEUK EST (test code = 3263) . Negative - N egative POCT U NIT (test code = 3262) . Negative - Negati ve POCT U PROT (test code = 3259) . Negative - Negat saadia POCT U GLU (test code = 3256) . Negative - Negati ve POCT U KETONE (test code = 3258) . Negative - Neg ative POCT U UROBILI (test code = 3260) . 0.2-1 POCT U BILI (test code = 3261) . Negative - Negat saadia POCT U BLD (test code = 3257) . Negative - Negati ve POCT U COLOR (test code = 3266) . POCT U APPEAR (test code = 3267) [facility] URINALYSIS W SPECIFIC [id number] 13:18:00* Test Item Value Reference Range Interpretation Comme nts POCT U SP GRAV (test code = 3255) . 1.005-1.025 POCT PH U (test code = 3254) 6 mg/dl 5-8 POCT U LEUK EST (test code = 3263) Neg Negative - Negative POCT U NIT (test code = 3262) Neg Negative - Negati ve POCT U PROT (test code = 3259) 1+ Negative - Negat saadia POCT U GLU (test code = 3256) Neg Negative - Negati ve POCT U KETONE (test code = 3258) None Negative - Neg ative POCT U UROBILI (test code = 3260) . 0.2-1 POCT U BILI (test code = 3261) . Negative - Negat saadia POCT U BLD (test code = 3257) Trace Negative - Negati ve POCT U COLOR (test code = 3266) POCT U APPEAR (test code = 3267) [facility] URINALYSIS W SPECIFIC [id number] 16:11:00* Test Item Value Reference Range Interpretation Comme nts POCT U SP GRAV (test code = 3255) . 1.005-1.025 POCT PH U (test code = 3254) . 5-8 POCT U LEUK EST (test code = 3263) . Negative - N egative POCT U NIT (test code = 3262) . Negative - Negati ve POCT U PROT (test code = 3259) Trace Negative - Negat saadia POCT U GLU (test code = 3256) Neg Negative - Negati ve POCT U KETONE (test code = 3258) . Negative - Neg ative POCT U UROBILI (test code = 3260) . 0.2-1 POCT U BILI (test code = 3261) . Negative - Negat saadia POCT U BLD (test code = 3257) . Negative - Negati ve POCT U COLOR (test code = 3266) POCT U APPEAR (test code = 3267) [facility] MOLECULAR [id number] 21:11:16* Test Item Value Reference Range Interpretation Comme nts POCT Molecular Strep (test c ode = 77064-7) Negative Negative Lab Interpretation (test cod e = 72630-7) Normal [facility] MOLECULAR [id number] 18:40:03* Test Item Value Reference Range Interpretation Comme nts POCT Molecular FluA (test co de = 96496-5) Negative Negative POCT Molecular FluB (test co de = 98987-6) Negative Negative Lab Interpretation (test cod e = 23235-2) Normal [facility] URINALYSIS W SPECIFIC [id number] 18:32:00* Test Item Value Reference Range Interpretation Comme nts POCT U SP GRAV (test code = 3255) * 1.005-1.025 POCT PH U (test code = 3254) 7 mg/dl 5-8 POCT U LEUK EST (test code = 3263) 1+ Negative - Negative POCT U NIT (test code = 3262) negative Negative - Negati ve POCT U PROT (test code = 3259) Trace Negative - Negat saadia POCT U GLU (test code = 3256) negative Negative - Negati ve POCT U KETONE (test code = 3258) negative Negative - Neg ative POCT U UROBILI (test code = 3260) * 0.2-1 POCT U BILI (test code = 3261) * Negative - Negat saadia POCT U BLD (test code = 3257) negative Negative - Negati ve POCT U COLOR (test code = 3266) yellow POCT U APPEAR (test code = 3267) clear [facility] URINALYSIS W SPECIFIC [id number] 18:24:00* Test Item Value Reference Range Interpretation Comme nts POCT U SP GRAV (test code = 3255) . 1.005-1.025 POCT PH U (test code = 3254) 5 mg/dl 5-8 POCT U LEUK EST (test code = 3263) negative Negative - Negative POCT U NIT (test code = 3262) negative Negative - Negati ve POCT U PROT (test code = 3259) trace Negative - Negat saadia POCT U GLU (test code = 3256) negative Negative - Negati ve POCT U KETONE (test code = 3258) negative Negative - Neg ative POCT U UROBILI (test code = 3260) . 0.2-1 POCT U BILI (test code = 3261) . Negative - Negat saadia POCT U BLD (test code = 3257) negative Negative - Negati ve POCT U COLOR (test code = 3266) . POCT U APPEAR (test code = 3267) . [facility] URINALYSIS W SPECIFIC [id number] 13:44:00* Test Item Value Reference Range Interpretation Comme nts POCT U SP GRAV (test code = 3255) . 1.005-1.025 POCT PH U (test code = 3254) 5 mg/dl 5-8 POCT U LEUK EST (test code = 3263) 2+ Negative - Negative POCT U NIT (test code = 3262) Neg Negative - Negati ve POCT U PROT (test code = 3259) Trace Negative - Negat saadia POCT U GLU (test code = 3256) Neg Negative - Negati ve POCT U KETONE (test code = 3258) None Negative - Neg ative POCT U UROBILI (test code = 3260) . 0.2-1 POCT U BILI (test code = 3261) . Negative - Negat saadia POCT U BLD (test code = 3257) Trace Negative - Negati ve POCT U COLOR (test code = 3266) POCT U APPEAR (test code = 3267) [facility] URINALYSIS W SPECIFIC [id number] 20:11:00* Test Item Value Reference Range Interpretation Comme nts POCT U SP GRAV (test code = 3255) . 1.005-1.025 POCT PH U (test code = 3254) 5 mg/dl 5-8 POCT U LEUK EST (test code = 3263) 1+ Negative - Negative POCT U NIT (test code = 3262) Neg Negative - Negati ve POCT U PROT (test code = 3259) Trace Negative - Negat saadia POCT U GLU (test code = 3256) Neg Negative - Negati ve POCT U KETONE (test code = 3258) None Negative - Neg ative POCT U UROBILI (test code = 3260) . 0.2-1 POCT U BILI (test code = 3261) . Negative - Negat saadia POCT U BLD (test code = 3257) Trace Negative - Negati ve POCT U COLOR (test code = 3266) . POCT U APPEAR (test code = 3267) . [facility] URINALYSIS W SPECIFIC [id number] 20:09:00* Test Item Value Reference Range Interpretation Comme nts POCT U SP GRAV (test code = 3255) . 1.005-1.025 POCT PH U (test code = 3254) . 5-8 POCT U LEUK EST (test code = 3263) . Negative - N egative POCT U NIT (test code = 3262) . Negative - Negati ve POCT U PROT (test code = 3259) . Negative - Negat saadia POCT U GLU (test code = 3256) . Negative - Negati ve POCT U KETONE (test code = 3258) . Negative - Neg ative POCT U UROBILI (test code = 3260) . 0.2-1 POCT U BILI (test code = 3261) . Negative - Negat saadia POCT U BLD (test code = 3257) . Negative - Negati ve POCT U COLOR (test code = 3266) POCT U APPEAR (test code = 3267) [facility] [id number] 19:23:00* Test Item Value Reference Range Interpretation Comme nts POCT PREG (test code = 1605) Positive On board controls acceptable with C Line (test code = 3574) Yes POCT PREG LOT # (test code = 3575) POCT PREG TEST DATE ( test code = 3576) [facility] URINALYSIS W/O SPECIFIC [id number] 19:23:00* Test Item Value Reference Range Interpretation Comme nts POCT PH U (test code = 3254) 6 mg/dl 5-8 POCT U LEUK EST (test code = 3263) 1+ Negative - Negative POCT U NIT (test code = 3262) Neg Negative - Negati ve POCT U PROT (test code = 3259) Trace Negative - Negat saadia POCT U GLU (test code = 3256) Neg Negative - Negati ve POCT U KETONE (test code = 3258) None Negative - Neg ative POCT U BLD (test code = 3257) Trace Negative - Negati ve [facility] [id number] 20:02:00* Test Item Value Reference Range Interpretation Comme nts POCT PREG (test code = 1605) Negative On board controls acceptable with C Line (test code = 3574) Yes POCT PREG LOT # (test code = 3575) POCT PREG TEST DATE ( test code = 3576) [facility] [id number] 20:02:00* Test Item Value Reference Range Interpretation Comme nts POCT PREG (test code = 1605) Negative On board controls acceptable with C Line (test code = 3574) Yes POCT PREG LOT # (test code = 3575) POCT PREG TEST DATE ( test code = 3576) [facility] [id number] 18:42:00* Test Item Value Reference Range Interpretation Comme nts POCT PREG (test code = 1605) Negative On board controls acceptable with C Line (test code = 3574) Yes POCT PREG LOT # (test code = 3575) POCT PREG TEST DATE ( test code = 3576) [facility] [id number] 18:42:00* Test Item Value Reference Range Interpretation Comme nts POCT PREG (test code = 1605) Negative On board controls acceptable with C Line (test code = 3574) Yes POCT PREG LOT # (test code = 3575) POCT PREG TEST DATE ( test code = 3576) [facility] ONLY - SYPHILIS IGG/[id number] 14:53:09* Test Item Value Reference Range Interpretation Comme nts Syphilis IgG/IgM (test code = 30736-8) Non-reactive Non-reactive MINE (test code = MINE) Non-reactive - No serologic evidence of T. pallidum infection. Cannot exclude incubating or early syphilis. Submit a second specimen in 2-4 weeks if syphilis is clinically suspected. Equivocal - Further testing to follow. Reactive - Further testing to follow. Lab Interpretation (test code = 01909-7) [facility] [id number] 05:57:16* Test Item Value Reference Range Interpretation Comme nts HIV Semi-quantitative (test code = 83400-0) Negative Negative MINE (test code = MINE) Non-reactive for HIV-1 antigen and HIV-1/HIV-2 antibodies. ?No laboratory evidence of HIV infection. ?Repeat in 2-4 weeks if acute HIV infection is suspected. [facility] URINALYSIS W/O SPECIFIC [id number] 20:10:00* Test Item Value Reference Range Interpretation Comme nts POCT PH U (test code = 3254) 5 mg/dl 5-8 POCT U LEUK EST (test code = 3263) trace Negative - Negative POCT U NIT (test code = 3262) negative Negative - Negati ve POCT U PROT (test code = 3259) 2+ Negative - Negat saadia POCT U GLU (test code = 3256) normal Negative - Negati ve POCT U KETONE (test code = 3258) small Negative - Neg ative POCT U BLD (test code = 3257) large Negative - Negati ve [facility] History and Physical Notes Date/Time Note Provider Source 2023-10-22 12:38:58 ZRrfna79q8+HPNSlEfWc eKyMu3Q56dUTpacjoscSPk /Fnt4WabadJ1MI61jlhwmX9841-89-28C38:38:58F ormatting of this note is different from the original.TRIAGE/L&D HISTORY & PHYSICALIDENTIFYING DATAAngel Leonardo is 28 year old, /White, 39w0d, female with PAUL 10/29/2023, by Last Menstrual Period.: 1995MRN: [id number] Care Physician: PATIENT DOES NOT HAVE A PCPCHIEF COMPLAINTIOLHISTORY OF PRESENT ILLNESSAngel Leonardo is a 28 year old at 39w0d who presents for IOL.Patient denies vaginal bleeding, denies leakage of fluid, denies contractions.Patient denies headache, denies nausea/vomiting, denies RUQ pain, denies visual abnormalities.Endorses normal movement.PAST OBSTETRIC HISTORYOB HistoryGravida Para Term AB Living3 2 2 2SAB IAB Ectopic Multiple Live Births0 2# Outcome Date GA Lbr Michele/2nd Weight Sex Delivery Anes PTL Lv3 Current2 Term 04/05/20 39w1d 2750 g F NORMAL SPONT EPI N LIV1 Term 09/28/17 39w0d 2920 g F NORMAL SPONT LIVPAST MEDICAL HISTORYProblem list:Patient Active Problem ListDiagnosis Date Noted39 weeks gestation of 10/22/2023Tubal ligation status 3Declines flu vaccine 05/18/2020Anemia of mother in , antepartum 01/15/2020Rubella non-immune status, antepartum 10/07/2019History of systemic lupus erythematosus (SLE) 10/04/2019Operations: No past surgical history on file.Past Medical History:Diagnosis DateAnemia of mother in , antepartum 01/15/2020unknown if resolved.Asthmaongoing since age 8. has rescue inhalerAutoimmune disorder 12/2015LupusBreakthrough bleeding on depo provera 1Chlamydia 2017treated per pt reportDepression, unspecified depression type 02/22/2017resolvedPapanicolaou smear of cervix with low grade squamous intraepithelial lesion (LGSIL) 02/27/2017STD (sexually transmitted disease)CURRENT HEALTH STATUSMedications:No current facility-administered medications for this encounter.Allergies and drug reactions: Patient has no known allergies.HOME MEDICATIONSMedications Prior to AdmissionMedication Sig Dispense Refill Last Dosealbuterol 90 mcg/actuation inhaler Inhale 2 Puffs every 6 (six) hours as needed for Wheezing, Shortness of Breath or Chest tightness. 8.5 g 0famotidine (PEPCID) 20 mg tablet Take 1 tablet by mouth in the morning and 1 tablet in the evening. 60 tablet 6Iron Fum & P-FA-Vit B & C No.9 (INTEGRA PLUS) 125 mg iron- 1 mg Cap Take 1 capsule by mouth in the morning. 30 capsule 6PNV 67-iron ps-folate no.1-dha (VITAFOL ULTRA) 29 mg iron- 1 mg-200 mg Cap Take 1 tablet by mouth in the morning for 180 days. 30 capsule 8SOCIAL HISTORYTobacco History:Social HistoryTobacco UseSmoking Status FormerTypes: CigarettesSmokeless Tobacco NeverTobacco CommentsStopped for . Not an everyday smoker, only social.Drug History:Social HistorySubstance and Sexual ActivityDrug Use Not CurrentlyComment: occasionalAlcohol History:Social HistorySubstance and Sexual ActivityAlcohol Use Not CurrentlyComment: occasionallyFAMILY HISTORYFamily HistoryProblem Relation Age of OnsetAutoimmune other MotherlupusNo Significant Medical Problems FatherAutoimmune other SisterlupusNo Significant Medical Problems BrotherAutoimmune other Maternal AuntlupusNo Significant Medical Problems Maternal UncleNo Significant Medical Problems Paternal AuntNo Significant Medical Problems Paternal UncleNo Significant Medical Problems Maternal GrandmotherDiabetes Paternal GrandmotherNo Significant Medical Problems Paternal GrandfatherREVIEW OF SYSTEMSGeneral: negativeSkin: negativeHEENT: negativeNeck: negativeHEME: negativeResp: negativeCardio: negativeGI: negativeGU: negativeEndo: negativeNeuro: negativeBack: negativeMSS: negativePsych: negativeVITAL SIGNSBP: (119)/(77)Temp: --Temp source: --Pulse: [82]Resp: [18]SpO2: [100 %]Height: [170.2 cm (5' 7")]Weight: [79.9 kg (176 lb 3.2 oz)]BMI (calculated): [27.6]PHYSICAL EXAMINATIONSGeneral: patient alert and in no acute distressHEENT: symmetric, negative for massesLungs: unlabored breathingCardiology: peripheral pulses intact and regularAbdomen: soft, non-tender, non-distended, no liver, spleen or abnormal masses palpated and GravidExtremities: no clubbing, cyanosis, or edemaNeuro: patient moving all extremities, no facial droopGU: REVIEW OF LABORATORY, PATHOLOGY, AND RADIOLOGY DATALab results:Type & ScreenLab ResultsComponent Value Date/TimeIABORH O POSITIVE 02/28/2023 03:10 PMIAT Negative 02/28/2023 03:10 PMSerologiesLab ResultsComponent Value Date/TimeVZVIGG Positive 02/28/2023 03:10 PMHIVMULTIPLEX Non-reactive 02/22/2017 03:16 PMRUBG Negative 02/28/2023 03:10 PMSYPIGG Non-reactive 08/29/2023 04:10 PMSYPIGG Non-reactive 01/31/2020 02:22 PMHBSAG Negative 02/28/2023 03:10 PMHBSAG 0.07 02/28/2023 03:10 PMChlamydiaLab ResultsComponent Value Date/TimeVCAA Negative 10/03/2023 11:38 AMGroup B StrepLab ResultsComponent Value Date/TimeCGB Negative 10/03/2023 11:38 AMGTTLab ResultsComponent Value Date/BvsmKDRJ4WD 104 (L) 07/27/2023 10:50 AMCBCLab ResultsComponent Value Date/TimeHGB 7.8 (L) 10/03/2023 11:31 AMHCT 28.4 (L) 10/03/2023 11:31 AMPLT 325 10/03/2023 11:31 AMActive Hospital ProblemsDiagnosis Date Noted39 weeks gestation of 4Tubal ligation status 3Anemia of mother in , antepartum 01/15/2020Rubella non-immune status, antepartum 10/07/2019Address ppHistory of systemic lupus erythematosus (SLE) 10/04/2019Reports dx in 2016, but did not follow upResolved Hospital ProblemsDiagnosis Date Noted Date Ddwvrlhw85 weeks gestation of 04/04/2020 4Present on Admission:History of systemic lupus erythematosus (SLE)Rubella non-immune status, antepartumAnemia of mother in , antepartumTubal ligation status(Resolved) 39 weeks gestation of qarrxxpxq93 weeks gestation of pregnancyPlacenta Accreta ScreeningPrior ? : NoPrior Uterine Surgery?: NoPlacenta low lying/previa in current ? : NoScreening outcome:A positive screening outcome indicates a history of prior delivery or prior uterine surgery, AND the presence of either a placenta low lying/previa or ultrasound suspicion of PASD in the current .Negative screening.ASSESSMENT AND PLANAdoalexandria Jorden is a 28 year old at 39w0d by d/u (13) who presents for IOL.IOL- Patient reports no LOF/VB/CTX. Normal FM.- SVE: 11/09/Floating- Contractions (number / 10 minute): 2Plan- Admit for IOL; cervical ripening with FB.SLE?- Diagnosed in 2016 based on positive MANPREET- Negative dsDNA, c3 comp, c4 comp- MFM consult placed, but not seen this - Reports no current rashes or joint pains, no flares this pregnancyPlan:- Continue to monitorDPS- Counseled regarding permanent sterilization and wishes to proceed.- BTL consents signed 07/27/23Hx asthma- Last rescue inhaler used last week. Uses it once every 2 weeks.- Denies any prior hospitalization or intubation.Antepartum course reviewed- 1 h 104, sero negative, Rnot immune, VZVimmune, HPV not immune, O positive/IAT negative, GBS negative, Pap NILM 10/11/22- H/H, plt: 7.8 / 28.4, 325 on 10/03/23- PP control plan: desires BTL- Pollock RMCHPFetus- Presentation on admission: cephalic- anterior placenta- EFW: 3134 g, 25%tile- FHT reactive and reassuring- Normal anatomy scan- NT negative, NIPT low risk, MSAFP wnlD/w Dr. Promise Castanon MD ssociated attestation - Jamaica Batista MD - 10/22/2023 3:29 PM CST I was the faculty on L&D on 10/22/[address] and I [address] with Dr. Castanon' assessment and plan.Jamaica Batista MD34117-2History and physical [id number], Faranak1.2.840.268570.1.13.104.2.7.2.21825 8LkhlwzVabivliJL5807-49-32Y56:29:09History and physical noteTXT1.2.840.964965.1.13.104.2.7.2.90259 9|[id number] for patient gagc08019-4Tvnkltx and physical noteLNNARRATIVEFormatted C-CDA narrative textUTMBUTMB - [address] Lc[id number] TCEHRSUQDSERPFFW7679-21-93X68:29:091.2.840 .594516.1.72.3.15|1.2.840.845176.1.13.104. 2.7.2.727879_[id number] [facility] Procedure Notes Date/Time Note Provider Source 2023-10-22 20:01:40 92KFp/CwIQcbEnmIK4x2 5AaxxhUAfMDdjv 7qnFuqJTGpz5qv1iX17A+KlGybZcl43932 -10-22T20:01:40Associated Order(s): Central Neuraxial Block Central Neuraxial BlockDate/Time: 10/22/2023 8:01 PMPerformed by: Bam Severino DOAuthorized by: Hortencia Turpin MDPatient Location: OBReason for Block: OB request, Patient request and Labor analgesiaStaff:Anesthesiologist: Hortencia Turpin, JANELesident/DATA PROCESSING MANAGER: Zacarias Christie, MDPerformed by: resident/CRNAPreanesthetic Checklist: patient identified, IV checked, risks and benefits explained, monitors and equipment checked, timeout performed, pre-op evaluation, site marked and anesthesia consentProcedure:Type of Neuraxial: EpiduralEpidural Description: 1st attemptSterility Prep cap, drape, gloves, mask and hand hygieneSedation Level no sedationPatient Position: sittingPrep: Betadine and patient drapedMonitoring: heart rate, continuous pulse ox, heart rate / toco and NIBPLocation: lumbar (1-5)Lumbar: L4-J9Csgysghp: midlineTechnique: catheter and MICHELLE salineGuidance with: landmark technique}Epidural/Spinal [place] and/or Catheter:Epidural/Spinal Kit: BBraunNeedle Type: TuohyNeedle Gauge: 17 GNeedle Length: 3.5 in (8.89 cm)Needle Insertion Depth: 5Catheter Type: multiportCatheter Size: 19 GCatheter at Skin Depth: 10Number of Attempts: 1Test Dose: lidocaine 1.5% with epinephrine 1-to-200,000 and negativeDose: 5 ccCatheter Securement Method: surgical tape, Tegaderm and liquid medical adhesiveAssessment:Procedure Assessment: patient tolerated procedure well with no complicationsNotes:Perpendicular entry 99390-9Ykhdgobvcnpptv procedure fufpSW7651-74-34Q46:02:05Anesthesi ology procedure noteTXT1.2.840.704732.1.13.104.2.7 .2.518530|[id number] for patient qscn80807-2Zrrlmdqo operation noteLNNARRATIVEFormatted C-CDA narrative mlrqYF-LIUXTPVVYMJMFHBW-GMLTZQDDRY [address] Hr[id number] 34XDLMQAZAVTQBXYUKHBJCEG3370-85-81 T20:02:051.2.840.267518.1.72.3.15| 1.2.840.300023.1.13.104.2.7.2.7278 79_[id number] AN-ANESTHESIOLOGY [facility] Notes Date/Time Note Provider Source 2023-10-25 10:14:50 MHXsjDIr+gA1gimU/Rq9OGqb6GJ8C2QmCcubmB XYREakKAPk373RDzlmMZDahIqr1772-48-48C9 0:14:50 Discharge instructions given to patient verbally and written. Patient was given date/time/location of PP follow up visit, a list of medication to stop/start taking and the pharmacy to pick them up at. Patient was educated on when to contact the physician, s/s of infection, s/s of pre-e and when to come to the hospital, s/s of depression and when to call the physician. Patient verbalized understanding. All questions answered. Patients IV was removed. Patient will be going home with family. 59743-7Orekf WmimBG8097-09-96A73:15:04Nurse NoteTXT1.2.840.187660.1.13.104.2.7.2.7 45155|[id number] for patient dcud70952-8GfwsKPSUYUDSJVJBibghunuk C-CDA narrative [id number] M Gossett RNUT[address] [id number] EIHGNWWONUVWPEKSIYXI5177-95-85D65:15:0 41.2.840.282488.1.72.3.15|1.2.840.1143 50.1.13.104.2.7.2.727879_[id number] Irene Dykes RN [facility] 2023-10-25 08:02:49 DNyarifjKU6BtIMY0BDqHlJH/Hj+JPzwKXqva5 OLGBI9LPyHxVd3iHw7DwanB83T8769-52-25D4 8:02:49 Problem: Falls, Risk ofGoal: Absence of fallsOutcome: Progressing as expectedProblem: Discharge Planning - PostpartumGoal: Adequate for dischargeOutcome: Progressing as expectedGoal: Mood stableOutcome: Progressing as expectedProblem: Infection RiskGoal: Absence of infectionOutcome: Progressing as expectedProblem: Discharge Planning - PostpartumGoal: Adequate for dischargeOutcome: Progressing as expectedGoal: Mood stableOutcome: Progressing as expectedProblem: Breast-feeding - IneffectiveGoal: Effective breast-feedingOutcome: Progressing as expected 70579-8Ichl of care wulwXP9133-61-41Q70:02:52Plan of care noteTXT1.2.840.441705.1.13.104.2.7.2.7 83878|[id number] for patient eeop31207-6JltiUKIWRWKPBOVZitkihuxd C-CDA narrative text[address] [id number] LMHIWYEICGGEYXVTXUYQ0353-81-46B86:02:5 21.2.840.825250.1.72.3.15|1.2.840.1143 50.1.13.104.2.7.2.727879_[id number] [facility] 2023-10-25 05:15:36 wHsFsbRa5B/Eha2LzHibZHS138+pyksvvuleE0 sOOXc+l8GHl6NmeDI+oeECQVNU4419-74-97I7 5:15:36 Problem: Falls, Risk ofGoal: Absence of fallsOutcome: Progressing as expectedProblem: Discharge Planning - PostpartumGoal: Adequate for dischargeOutcome: Progressing as expectedGoal: Mood stableOutcome: Progressing as expectedProblem: Infection RiskGoal: Absence of infectionOutcome: Progressing as expectedProblem: Discharge Planning - PostpartumGoal: Adequate for dischargeOutcome: Progressing as expectedGoal: Mood stableOutcome: Progressing as expectedProblem: Breast-feeding - IneffectiveGoal: Effective breast-feedingOutcome: Progressing as expected 44268-4Hucz of care lzeqAC2010-72-02H39:15:39Plan of care noteTXT1.2.840.801674.1.13.104.2.7.2.7 58345|[id number] for patient gkor84541-4UlfaHCKEVHJLVSYBacsfwypd C-CDA narrative [id number] Orellana RN[id number] QKHVCYNNBOEOPJILZWAG4598-42-01H75:15:3 91.2.840.978644.1.72.3.15|1.2.840.1143 50.1.13.104.2.7.2.727879_[id number] Nupur Baig RN [facility] 2023-10-24 15:46:13 X+19WTtuKw9rjHtFyUsI+oRntyX6Z3HkiCQjul ojtjtjUYaeqh/OzNIecj5mGdbU3484-18-59E2 5:46:13 Problem: Discharge Planning - PostpartumGoal: Adequate for dischargeOutcome: Progressing as expectedGoal: Mood stableOutcome: Progressing as expectedProblem: Discharge Planning - PostpartumGoal: Adequate for dischargeOutcome: Progressing as expectedGoal: Mood stableOutcome: Progressing as expected 74581-7Drgn of care rhzyKH4978-63-55Z80:46:17Plan of care noteTXT1.2.840.036613.1.13.104.2.7.2.7 94721|[id number] for patient ebql09211-4DjyhRKMWIVUJTVFTuiugwefa C-CDA narrative [id number] Kidd RN[id number] JFZEBONUZGFTXGOHBZGN9278-54-46D78:46:1 71.2.840.269231.1.72.3.15|1.2.840.1143 50.1.13.104.2.7.2.727879_[id number] Kyle White RN [facility] 2023-10-24 06:15:21 /tG04ikVjZFC5KqQJE45QahcGvrf8b5j395seJ XUelEjveemmARazTXh/I6llyIS3900-46-41P3 6:15:21 Problem: Falls, Risk ofGoal: Absence of fallsOutcome: Progressing as expectedProblem: Discharge Planning - PostpartumGoal: Adequate for dischargeOutcome: Progressing as expectedGoal: Mood stableOutcome: Progressing as expectedProblem: Infection RiskGoal: Absence of infectionOutcome: Progressing as expectedProblem: Discharge Planning - PostpartumGoal: Adequate for dischargeOutcome: Progressing as expectedGoal: Mood stableOutcome: Progressing as expectedProblem: Breast-feeding - IneffectiveGoal: Effective breast-feedingOutcome: Progressing as expected 03540-4Wldb of care xhcwZV0495-74-65S98:15:26Plan of care noteTXT1.2.840.945240.1.13.104.2.7.2.7 30448|[id number] for patient bfck29552-3GkjnWPETZJUKOSXYvoojndnc C-CDA narrative textUT[address] GscuS[id number] BPIXWIIBUEFOWFQMHNIT9963-67-96P26:15:2 61.2.840.697418.1.72.3.15|1.2.840.1143 50.1.13.104.2.7.2.727879_[id number] [facility] 2023-10-23 16:52:00 QnggBS/SzD1sfSyWtcFKXs9nY6V56cXTcXaRzA mVI4P9sCvndJrwEw/r/rjr7vU59523-55-81J6 6:52:00 Images from the original note were not included.This note was copied from a baby's chart. Assessment (most recent) Assessment - 10/23/23 1652General InformationVisit InitialNumber of voids last 24 hours- 2Number of stools last 24 hours- Infant 4Mom's age (years) 28 yearsGestational age 39 weeksGravida 3Parity 3Living Children 3Feeding plan BreastBreastfeed previously Yes Breastfed her 6 year old for 8 months and her 3 year old for 1 month. States her 3 year old struggled to latch and that caused her to have a low supply. plans 1 yearPlanned maternity leave Stay at home momFinancial Class MedicaidDelivery method ;BTLBirth Control BTLRisk factors AnemiaMental health history DepressionInfant Oral AssessmentDate of 10/23/23Time of 0147Infant location Mother Baby UnitBreast AssessmentBreast Assessment Deferred Mother having pain from her BTLLiterature ResourcesResources guideEducation 6 months exclusive , up to and beyond 1 year with complimentary foods;Infant hunger cues;On-demand feeds at least 8 or more over 24 hours;Diaper counts/color;Benefits of breastmilk;Benefits of skin to skin contact;Encouraged rooming-in;Waking techniques;Signs of an effective latch;Infant stomach size;Calming techniques;2nd day/growth spurt cluster feeds;Position changes;Breaking seal;LactogenesisHandouts given EnglishLactation Optics Technical Officer ObservationBreastfeeding Reported;Mom states infant latches well with no painFollow up Mom will call staffRecommended Feeding PlanRecommended feeding plan On-demand , 8-12 times in 24 hours not to exceed 6 hours between feeds;Frequent uaab-bm-rlvu time with parentsOTHER$ SERVICES Marlene Cyr MSN, RNC-MNN, IBCLC 44996-2Qtxwvuqtgh UvasCZ4616-73-05J94:12:47Obstetrics NoteTXT1.2.840.559135.1.13.104.2.7.2.7 99199|[id number] for patient nqed39154-6WppxAGIRHGQSRLIJtuqtvuxk C-CDA narrative [id number] Cyr RN[address] StreetGadwMofbtdrbbVwwwwdumyZWEJ8900525421UY GGPAHBVOAGPUVVXSSFMR9943-24-43A82:12:4 71.2.840.842429.1.72.3.15|1.2.840.1143 50.1.13.104.2.7.2.727879_[id number] Annika Cyr RN [facility] 2023-10-23 16:16:01 KHmcYrxhEJ7kE0SYdDu/U5FD14+nmIVwF9lJs5 wvlep0fBf2ipc7z+e8QaBBOI4k9588-63-55S8 6:16:01 Problem: Falls, Risk ofGoal: Absence of fallsOutcome: Progressing as expectedProblem: Discharge Planning - PostpartumGoal: Adequate for dischargeOutcome: Progressing as expectedGoal: Mood stableOutcome: Progressing as expectedProblem: Infection RiskGoal: Absence of infectionOutcome: Progressing as expected 51003-0Jkkp of care rajaVW6536-32-41Z19:16:03Plan of care noteTXT1.2.840.429457.1.13.104.2.7.2.7 26598|[id number] for patient vbvh63804-4QbymDRZHFAAICIQPkrdrxnvl C-CDA narrative [id number] [place] RNUT46 Doyle StreetZvubVpiliuavsExhzckqczNGHJ2339351725GI RBLBORPKQVYLLIMTHBUP0156-92-11D80:16:0 31.2.840.397562.1.72.3.15|1.2.840.1143 50.1.13.104.2.7.2.727879_[id number] Jovan Dang RN [facility] 2023-10-23 08:00:00 bvKt68aXc3GYz53n2Di9dHa2LHwlXj/Hf/DwsG rz9hOxHxf9KqU0SpQ7bxncaPQv1418-59-30K6 8:00:00 BILATERAL TUBAL LIGATION PROCEDURE NOTEDate: 4Preoperative Diagnosis: MPDPSPostoperative Diagnosis: MPDPSProcedure: Modified [place] bilateral tubal ligationSurgeon: MICAELA Alarcon Faculty: Zoya Marcos MDAnesthesia: Spinal AnesthesiaSpecimens: Right and left tubal segmentsFindings: Normal appearing bilateral fallopian tubesNarrative: After arrival to the operating room, she was placed in supine position after administration of spinal anesthesia. Two Allis clamps were used to grasp the skin and a transverse infraumbilical incision was made through the skin with a #10 scalpel. The incision extended sharply with scapel with assistance of Allis clamps through the subcutaneous tissue to level of fascia. The fascia was grasped with Allis clamps and entered into with #10 scalpel. The incision through the fascia was extended with scalpel. The peritoneum was entered bluntly digits. The patient was airplaned to the left by anesthesiologist. The skin incision was retracted with Appendicle retractor and a sponge stick was used to sweep the omentum and/to bowel out of field. The right fallopian tube was visualized directly. The fallopian tube was grasped with Ej forceps and followed out To distal end until the fimbria was visualized. A Dushore forcep was replaced at midportion of fallopian tube. The fallopian tube was ligated and resected with Modified Buxton technique - Dushore clamp was placed on fallopian tube and placed on gentle traction to create a loop. Two 0-plan gut sutures were used to ligate this loop and metzenbaum scissor was used to perforate the mesosalpinx bluntly. Each ligated portion of the tube was then transected individually. The transected ends of fallopian tube were examined to ensure the presence of fallopian lumen and good hemeostasis. The fallopian tube was replaced into abdomen. The patient was airplaned to right by anesthesiologist. The left fallopian tube was visualized directly. The fallopian tube was grasped with Ej forceps and followed out to distal end until the fimbria was visualized. A Ej forcep was placed at midportion of fallopian tube. The fallopian tube was ligated with 0-plain gut sutures times two with Modified Naty technique - Ej clamp was placed on fallopian tube and placed on gentle traction to create a loop. Two 0-plan gut sutures were used to ligate this loop and metzenbaum scissor was used to perforate the mesosalpinx bluntly. Each ligated portion of the tube was then transected individually. After ensuring good hemeostasis of the transected ends and the presence of fallopian lumen, the fallopian tube was replaced in the abdomen. The fascia was re-approximated with running 0-vicryl sutures with CT-1 needle. The skin was re-approximated with running subcutaneous 2-0 vicryl sutures with PS-1 needle. Steri strips dressing was placed.Condition of Patient after Surgery: GoodEstimated Blood Loss: 5 ccUrine Output: Not measuredComplications: NoneLuke MD MitaObstetrics and Gynecology, PGY39:06 AM ssociated attestation - Zoya Marcos MD - 10/24/2023 8:48 AM CST I was supervising [facility] faculty present for this procedure. I was present for all valdes portions of the procedure. I have attached an additional note if there were special circumstances during this procedure.81186-4Jcrfmwq Surgical operation [id number], Shannon M1.2.840.341142.1.13.104.2.7.2.772763W plcvIgzoiobYPT4650-99-00W43:48:08[facility] Surgical operation noteTXT1.2.840.007685.1.13.104.2.7.2.7 09818|[id number] for patient gogv51008-2WsezGKWIZPBKSHINexdwxdac C-CDA narrative text[id number] CTAEEFIWGEFIERQYAFMF7045-91-10Q80:48:0 81.2.840.465669.1.72.3.15|1.2.840.1143 50.1.13.104.2.7.2.727879_[id number] [facility] 2023-10-23 07:48:24 ANizcey53gQ8fvw07XxDMb4IBNxEmXuSKp5YSb nKrjV0LAjKqqO8qrV5o9Hg9kW56211-71-97Z8 7:48:24 Problem: Intrapartum process (including labor pain)Goal: Absence of or reduction of complications of laborOutcome: ResolvedGoal: Able to cope with painOutcome: ResolvedGoal: Adequate to move to next level of careOutcome: ResolvedGoal: Reduction in pain sensationOutcome: Resolved 47229-8Xjfu of care njzqZF3872-81-23S89:48:26Plan of care noteTXT1.2.840.157171.1.13.104.2.7.2.7 96217|[id number] for patient fwqh56167-2NnscBVVERDSYEAKYsoutuwge C-CDA narrative text[address] OmfmTncstuiitOlcwfkfdsGOGX7710317212HJ KHTVVDWDZNVQNPWTWJUP9253-67-48U79:48:2 61.2.840.451556.1.72.3.15|1.2.840.1143 50.1.13.104.2.7.2.727879_[id number] [facility] 2023-10-23 06:41:10 F35tsLqKK/riMwkK3nB26dbrP0gk6IxNkVZw1h j/ySKspamR5DFcC8ELSd4fRnHp1192-48-53L9 6:41:10 Patient: Angel LeonardoProramy SummaryDate: 10/22/23 Room / Location:Anesthesia Start: 1957 Anesthesia Stop: 10/23/23 0308Procedure: CENTRAL NEURAXIAL BLOCK Diagnosis:Scheduled Providers: Responsible Provider: Hortencia Turpin MDAnesthesia Type: Epidural ASA Status: 2Anesthesia Type: EpiduralThere were no known notable events for this encounter.Anesthesia Post EvaluationPatient location during evaluation: bedsidePatient participation: complete - patient participatedLevel of consciousness: awake and alertPain management: satisfactory to patientAirway patency: patentCardiovascular status: acceptable and blood pressure returned to baselineRespiratory status: acceptableHydration status: acceptable 72982-8Bkqnmseaiuwpeb Postoperative evaluation and management vxgiDF4253-68-07J83:41:19Anesthesiolog y Postoperative evaluation and management noteTXT1.2.840.813110.1.13.104.2.7.2.7 04715|[id number] for patient rqsy23997-7Wszxcojy operation noteLNNARRATIVEFormatted C-CDA narrative textAN-ANESTHESIOLOGY ANESTHESIOLOGISTAN-ANESTHESIOLOGY ANESTHESIOLOGIST[address] Ra[id number] ZMOFWHXDWMLBKIMMRNMM2338-80-83G79:41:1 91.2.840.082255.1.72.3.15|1.2.840.1143 50.1.13.104.2.7.2.727879_[id number] AN-ANESTHESIOLOGY ANESTHESIOLOGIST [facility] 2023-10-23 01:59:47 ufKDNL58hL718F6g+v0C48UTBX0lVWb45WxJlD A2ATAxCgcBFy0JvdFWdLWKi4Xy8564-20-89N6 1:59:47 DELIVERY BY SPONTANEOUS VAGINAL DELIVERYDelivery Date: 10/23/2023 Delivery Time: 1:47 AMDelivery SummaryThe patient was admitted to the Labor & Delivery unit for sIOL at 39 weeks.Delivery Physician: Jo Milligan MDTeaching Assist: Miesha Hall MDOB Faculty: LYNNE PEMBERTON, [employer] [employer] Hospitalpartum Anesthesia/Analgesia: EpiduralMode of Delivery: Delivery of castellon fetus with cephalic presentationFetusSpontaneous vaginal delivery of head with cephalic position, occipital anterior. As the head crowned and distended the perineum, no episiotomy was performed. A blue towel was used to protect the perineum as the head crowned and delivered. The other hand was used to exert pressure on the occiput to control the delivery of the head. The perineum was pushed with a towel-draped hand as the head and mouth was delivered over the perineum. The head was allowed to rotate externally to achieve natural body posture. Examination of neck revealed nuchal cord, which was Umbilical cord not reducted - body delivered through umbilical cord. The shoulder was delivered by gentle downward traction applied to head and downward traction for the delivery of anterior shoulder. This was followed by upward traction with delivery of posterior shoulder and body. After the delivery of infant, bulb suction was performed from ororpharynx and nostril with removal of clear amniotic fluid.A normal, male was delivered.The umbilical cord was double clamped, cut and the infant was handed off the field to the circulating nursePlacentaPlacenta was delivered spontaneously while the abdominal hand lifted the uterus cephalad and other hand keeping the umbilical cord slightly taut.LacerationLaceration Repair: No laceration repair needed.Fourth StageFourth stage of labor was managed by uterine massage with abdominal hand and infusion 30 units of pitocin mixed with intravenous fluid.EBL: 200 ccComplications: NoneWeight: 2870 g1 Minute 5 Minute 10 MinuteApgar Totals: 8 9Chrelenoa Sukhdeep Milligan MDObstetrics and Gynecology PGY-1 ssociated attestation - Jamaica Batista MD - 10/23/2023 9:10 AM CST I was present for delivery of a viable infant. No immediate complications noted. Mom and baby stable to RR.Jamaica Batista MD57057-2Labor and delivery summary xrdoWZ3467741Xdjdhd, Faranak1.2.840.359561.1.13.104.2.7.2.8 21228HfqizmSgwrakmQW2556-51-78L74:10:1 0Labor and delivery summary noteTXT1.2.840.695571.1.13.104.2.7.2.7 93209|[id number] for patient qkdv26136-6GcnxERKMEJPJHFBKzfmjctdg C-CDA narrative textOG-OBSTETRICS & GYNECOLOGYOG-OBSTETRICS & GYNECOLOGY[address] UvljRaypsrfjqQzjgesxfsIUUZ3709800594BO IPQJEOSAYRXMHXXULXJO3858-81-03K25:10:1 840.876832.1.72.3.15|1.840.1143 50.1.13.104.2.7.2.727879_[id number] OG-OBSTETRICS & GYNECOLOGY [facility] 2023-10-22 20:57:27 873wZ+MKeHt/EAJjNVTgg1BRqJrQF2esOsyF22 fJd0ySI8YAnMxEuYS4N3NAQ5tp3721-72-93B8 0:57:27 Problem: Intrapartum process (including labor pain)Goal: Absence of or reduction of complications of laborOutcome: Progressing as expectedGoal: Able to cope with painOutcome: Progressing as expectedGoal: Adequate to move to next level of careOutcome: Progressing as expectedGoal: Reduction in pain sensationOutcome: Progressing as expectedProblem: Falls, Risk ofGoal: Absence of fallsOutcome: Progressing as expected 86000-8Kiwk of care kkjvNC5099-45-39L92:57:30Plan of care noteTXT1.2.840.625878.1.13.104.2.7.2.7 25389|[id number] for patient diso36902-5JoptRPHLEBIWBQRTxqqreygz C-CDA narrative text[address] TegvNvzczjekeMatyqdeecZOGR0301946221CX FNTMNLAXAMFPJMGCXVHA8334-54-49W69:57:3 10.17.840.446492.1.72.3.15|1.2.840.1143 50.1.13.104.2.7.2.727879_[id number] [facility] 2023-10-22 20:45:38 vqcCLdcA2OPX6YZTIb4XbuohNxdhKAgj7P5PFs H0jl6DzS7xYmE3otDAfWD51B6u4421-97-14Q0 0:45:38 Intrapartum Progress Note10/22/2023 8:45 PMSubjective: Patient has no complaintsObjective:Vitals last 24 hours:Temp: [36.5 ?C (97.7 ?F)-36.9 ?C (98.5 ?F)] 36.9 ?C (98.5 ?F)Pulse: [68-93] 88Resp: [17-18] 17BP: (98-126)/(59-83) 115/68Intake/Output :No intake/output data recorded.No intake/output data recorded. AssessmentActive movement: YesMode: EFMUterine Activity:Mode: TocoContractions (number / 10 minute): 5Contraction duration (seconds): 50-70Resting tone: Soft;PalpationMembrane StatusMembrane status: ArtificialRupture date: 10/22/23Rupture time: mniotic fluid color: ClearCervical Exam5 / 50 % / -3Assessment/Plan:Angel Leonardo is a 28 year old at 34v3pWZ Assessment: IOL, MPDPS, asthmaOB Plan: s/p FB, Pit@1500Additional Comments/Detail: AROM moderate clear fluid. Pt comfortable with epidural.Ripening Agent: Bales bulbIntrapartum Plan: [place] [address]-4Nrfixpkz cyzbRC7701-08-18H84:45:42Progress noteTXT1.2.840.791032.1.13.104.2.7.2.7 46591|[id number] for patient ljgh64040-1UbquOTHMHVDINUMOhwnnphox C-CDA narrative textOG-OBSTETRICS & GYNECOLOGYOG-OBSTETRICS & GYNECOLOGY[address] FdipCitsvoenwEjfbnviorVZTY0848739556FK XSPAIREIQHFTBNNUBDHX8701-00-19Q20:45:4 21.2.840.226513.1.72.3.15|1.2.840.1143 50.1.13.104.2.7.2.727879_[id number] OG-OBSTETRICS & GYNECOLOGY [place] 476844-01-07 20:02:13 /K36yH6rjsoJUBlyHuGBMDVITJm7EZnG3TdHb0 GyN0J6i783NSEJ0gH8l0umUnyt5156-53-39F1 0:02:13 Name/ MRN / Age / Gender:Angel Leonardo, [id number] year old femaleBMI:Estimated body mass index is 27.6 kg/m? as calculated from the following:Height as of this encounter: 1.702 m (5' 7").Weight as of this encounter: 79.9 kg (176 lb 3.2 oz).Allergies:Patient has no known allergies.Last Vitals:BP Readings from Last 1 Encounters:10/22/23 111/64Pulse Readings from Last 1 Encounters:10/22/23 73SpO2 Readings from Last 1 Encounters:10/22/23 100%Date of Surgery: 10/22/2023Surgeon: * No surgeons listed *Procedure: CENTRAL NEURAXIAL BLOCKOR Location: [facility]HES[facility] OUT OF OR - OR LOCATIONAnesthesia Preop Eval (physical exam)Anesthesia Preop: Qjab-na-DojyIUV Status VerifiedClear Liquids: > 2 HoursSolid Food/Non-Clear Liquids: > 8 HoursPONV Risk Factors: femaleAnesthesia HistoryAnesthesia History NegativePrevious Anesthetics/AirwaysCardiovascularNegat saadia Cardiac ROSMETS: 5-6(-) Chest pain with 1-2 flights of stairs(-) HypertensionPulmonary(-) COPD(+) Asthma and inhaler/nebulizer useNeuro/MusculoskeletalNegative Neuro/Musculosketal ROS(-) CVA(-) SeizuresGI/HepaticNegative GI/Hepatic ROSHematologyNegative Hematology ROSComments: CBCWBC (10*3/?L)Date Value10/22/2023 8.89 RBC (10*6/?L)Date Value10/22/2023 4.63 PLT (10*3/?L)Date Value10/22/2023 321 HGB (g/dL)Date Value10/22/2023 9.4 (L) HCT (%)Date Value10/22/2023 33.2 (L) RenalNegative Renal ROSComments: BMPNA (mmol/L)Date Value04/04/2020 135 K (mmol/L)Date Value04/04/2020 4.4 CALCIUM (mg/dL)Date Value04/04/2020 9.6 CL (mmol/L)Date Value04/04/2020 108 BUN (mg/dL)Date Value04/04/2020 7 CREATININE (mg/dL)Date Value04/04/2020 0.48 (L) GLUCOSE (mg/dL)Date Value04/04/2020 75 CO2 TOTAL (mmol/L)Date Value04/04/2020 21 (L) SkinNegative Skin ROS(+) Current IV accessEndo/OtherComments: Lupus(-) Diabetes MellitusOtherOB/GYNComments: IOL- Patient reports no LOF/VB/CTX. Normal FM.- SVE: - Contractions (number / 10 minute): 2Plan- Admit for IOL; cervical ripening with FB.SLE?- Diagnosed in 2015 based on positive MANPREET- Negative dsDNA, c3 comp, c4 comp- MFM consult placed, but not seen this - Reports no current rashes or joint pains, no flares this pregnancyPlan:- Continue to monitorDPS- Counseled regarding permanent sterilization and wishes to proceed.- BTL consents signed 07/27/23Hx asthma- Last rescue inhaler used last week. Uses it once every 2 weeks.- Denies any prior hospitalization or intubation.Antepartum course reviewed- 1 h 104, sero negative, Rnot immune, VZVimmune, HPV not immune, O positive/IAT negative, GBS negative, Pap NILM 10/11/22- H/H, plt: 7.8 / 28.4, 325 on 10/03/23- PP control plan: desires BTL- Pollock RMCHPFetus- Presentation on admission: cephalic- anterior placenta- EFW: 3134 g, 25%tile- FHT reactive and reassuring- Normal anatomy scan- NT negative, NIPT low risk, MSAFP wnlPediatricNeonatalPreoperative Medication InstructionsContinue taking all prescribed medications except:EMANI inhibitors, ARBs, diuretics, all oral diabetes medicationsAnticoagulant Therapy: Defer to surgeonsInsulin: Take 1/2 dose the night prior to surgery. Hold on DOS.Phentermine: Alert [facility] anesthesiologistSGLT2 Inhibitors: "gliflozins" to be held for 3 days prior to elective surgeriesGLP1 Agonosit: stop 7 days prior to surgeryMAC Cases: Continue taking EMANI inhibitors and ARBsASA ClassificationASA: 2ASA Comments: Lupus, no kidney diseaseCurrent Medications:No outpatient medications have been marked as taking for the 10/22/23 encounter (Hospital Encounter).Previous Surgeries: No past surgical history on file.Anesthesia Physical ExamGeneralno apparent distress and alert and oriented x 3Neuro/PsychneurologicalDentalno notable dental hxAbdominalGI exam normal(+) gravidAirwayMallampati score:ITM distance:> 5 cmNeck ROM: fullMouth opening:normal(+) Normal faciesExtremityNormal extremityPulmonarypulmonary exam normal OtherCardiovascularcardiovascular exam normalAnesthesia PlanASA Status: 2Plan discussed during pre-op evaluation: General, Epidural, Spinal and CSEAnesthetic plan on DOS: EpiduralAnesthesia plan discussed with: patient or representativePost-Operative Analgesia: routine analgesia & antiemeticsRecovery Plan: LDRAdditional comments: 75435-6Tzjokrlthjvrjq Preoperative evaluation and management ooqeQU1621-98-20J69:47:00Anesthesiolog y Preoperative evaluation and management noteTXT1.2.840.932095.1.13.104.2.7.2.7 83499|[id number] for patient yzmi21219-0Heizebch operation noteLNNARRATIVEFormatted C-CDA narrative text52 [id number] YAQXDHDFABOFHFWYCGLW1682-85-00F91:47:0 01.2.840.800609.1.72.3.15|1.2.840.1143 50.1.13.104.2.7.2.727879_[id number] [facility] 2023-10-22 18:51:28 l/3aMwqaTo3hG2mXKOkntdzmJhewmQjcfdy0XM L/0oYQqJ7n0jl1FM9/h0hPhu7L0420-86-55G3 8:51:28 Problem: Intrapartum process (including labor pain)Goal: Absence of or reduction of complications of laborOutcome: Progressing as expectedGoal: Able to cope with painOutcome: Progressing as expectedGoal: Adequate to move to next level of careOutcome: Progressing as expectedGoal: Reduction in pain sensationOutcome: Progressing as expected 50595-0Ndsw of care zjqgQY1944-46-80P58:51:32Plan of care noteTXT1.2.840.222960.1.13.104.2.7.2.7 49061|[id number] for patient rdxq55139-9ItflGVMKBKWCAPUHozbtbsks C-CDA narrative fyyi881964755Kptlodh Bland RNUT66 [address] [id number] RIJCJVJTJDAXCPSPAJFK4622-66-16N16:51:3 21.2.840.545990.1.72.3.15|1.2.840.1143 50.1.13.104.2.7.2.727879_[id number] Lissette Davis RN [facility] 2023-10-05 09:18:46 ndKQIUFhgxbWmGkXLELETVcMH1+jnG95PA2FPa B1GvzEAM8kIrXUOv1fnIUTHYmz1800-31-39H2 9:18:46 Patient informed of results and importance of taking the iron supplement. Patient stated she will fiber picker medication from pharmacy and start taking it at bedtime. 12267-9Mszlxwmhq encounter QhcjGF8668-39-15D19:20:53Telephone encounter NoteTXT1.2.840.636947.1.13.104.2.7.2.7 27558|[id number] for patient leyn28661-7JawxVRWPTJBNAHIRdbnbgzru C-CDA narrative kely[address] StreetPgcxHseaechimTljduxdexDVLS8242488142YW IAEBAYALAXUVRAEUOKVP2557-13-79G39:20:5 31.2.840.877150.1.72.3.15|1.2.840.1143 50.1.13.104.2.7.2.727879_[id number] [facility] 2023-10-05 09:15:20 Iv31FeVN5bGWgZRA5QGg1OWhWWKbtsHM1dki8z ZQC6RTOrOqI3fwFE1Fo+j/aaTJ5798-11-98H9 9:15:20 Pt returning call, please call back [phone] (home) 29784-2Aehajskxr encounter LonfMS1466-50-22F30:15:49Telephone encounter NoteTXT1.2.840.008098.1.13.104.2.7.2.7 82530|[id number] for patient zkyl42134-2TubrYBFIKXWDOKBQoclijmvs C-CDA narrative pfqa5756414HQ [id number] XCCPCIHDDVXHIYAMUYVA5856-93-91E76:15:4 91.2.840.914607.1.72.3.15|1.2.840.1143 50.1.13.104.2.7.2.727879_[id number] JJ [facility] 2023-10-05 08:28:22 H3VlB4ULWp2/4hvfY7ROXR1V/FV5Q/obpGOtoY HALXCxxcLkBhU4qyrrkz2Y3DVb1926-12-95G0 8:28:22 Attempted to call patient, no answer, [place]. 41292-1Lchyiohqa encounter CueqVD3685-24-76U14:28:52Telephone encounter NoteTXT1.2.840.156717.1.13.104.2.7.2.7 17175|[id number] for patient jlhk79765-1JueuJDJGKUTJVYWRrrutmshl C-CDA narrative [id number] GOXZVCSOXQRBOWHLSEWB1192-12-98B06:28:5 21.2.840.083379.1.72.3.15|1.2.840.1143 50.1.13.104.2.7.2.727879_[id number] [facility] 2023-10-05 07:27:01 zr9l6BEeNt/In8VWtRDw3LQc10quHM1vgg0irC gfJPYFe76I6g1IEeia0Kwxjinr6184-02-81S0 7:27:01 Please call patient and let her know iron level is very low. She has not been taking iron supplement due to side effects but stress importance of taking. She can take them at night before she goes to bed. She has high risk of needing blood transfusion after delivery due to already low hgb level. I can try to get her iron infusion but she will need to go to [place] 3 days in row for any effect. 78636-9Zhbtzypij encounter GzicNJ3800-28-42H60:30:32Telephone encounter NoteTXT1.2.840.024735.1.13.104.2.7.2.7 44354|[id number] for patient ubos82246-4LlvgKBAPBKKXXOLPpztczwzs C-CDA [id number] ZDFSHQXKDJEUEWHBNLQH8174-82-22P14:30:3 21.2.840.204057.1.72.3.15|1.2.840.1143 50.1.13.104.2.7.2.727879_[id number] [facility] 2023-06-15 10:02:39 h4kQI1hL9XAzIEFqBY/K3leUPuymL52oEuSqqM k5/mr+vhXK/G4IrJ4AwkkSZ1740723-78-92M6 0:02:39 Advised patient she can still be seen in clinic and can be tested for symptoms, verbalized understanding. 03584-4Pluazcgtj encounter SuddXM1525-12-93B49:03:21Telephone encounter NoteTXT1.2.840.271348.1.13.104.2.7.2.7 13373|[id number] for patient krbg45805-7XeteFMQAEAQUCD[id number] XEOZPGXDIAVGLPYDYJZA6020-48-33C09:03:2 11.2.840.636081.1.72.3.15|1.2.840.1143 50.1.13.104.2.7.2.727879_[id number] [facility] 2023-06-15 09:48:15 f/YgSUAmd69yY4yyUjK2LMTAMNAGqDF8d0SA8C 2PE4xsF8G8pz1dn3rxJjSNtWKf5619-81-44V2 9:48:15 This patient called to reschedule her appt with High Risk due to having symptoms of:Cough, sore throat and stuffy nose.Please call patient to let her know what over the counter medications she can have while . 24780-9Nifrwqegb encounter YxhlYZ5201-98-80Y69:50:17Telephone encounter NoteTXT1.2.840.904168.1.13.104.2.7.2.7 48480|[id number] for patient bqcp73784-0LhqoFL334465777Hgztt L Smith[address] KunoBeojpypaoQqxbxslfrERRW5212100840QJ KQQXQCVROEIYMZKYUMMB5460-31-86E74:50:1 71.2.840.414777.1.72.3.15|1.2.840.1143 50.1.13.104.2.7.2.727879_[id number] Xiomara Georges [facility]
--- NOTE | 2023-11-12 16:37 | ER ---
Nurse's Notes [facility] Name: Angel Leonardo Age: 28 yrs Sex: Female : 1995 Arrival Date: 11/12/2023 Time: 15:31 Bed 17 Private MD: Diagnosis: Unspecified acute conjunctivitis, bilateral Presentation: 11/12 15:54 Chief complaint: Bilateral eye pain, redness, and itching after sleeping in eye makeup hb 3 nights ago. Coronavirus screen: At this time, the client does not indicate any symptoms associated with coronavirus-19. Ebola Screen: No symptoms or risks identified at this time. Initial Sepsis Screen: Does the patient meet any 2 criteria? No. Patient's initial sepsis screen is negative. Does the patient have a suspected source of infection? No. Patient's initial sepsis screen is negative. Risk Assessment: Do you want to hurt yourself or someone else? Patient reports no desire to harm self or others. Onset of symptoms was November 10, 2023. 15:54 Method Of Arrival: Ambulatory hb 15:54 Acuity: AURELIO 4 hb Historical: - Allergies: 15:56 No Known Allergies; hb - PMHx: 15:56 Lupus; hb Assessment: 17:02 General: Appears in no apparent distress. Behavior is calm, cooperative. Pain: Denies mb9 pain. Neuro: Level of Consciousness is awake, alert, obeys commands. Cardiovascular: Patient's skin is warm and dry. Respiratory: Airway is patent. GI: No signs and/or symptoms were reported involving the gastrointestinal system. : No signs and/or symptoms were reported regarding the genitourinary system. EENT: Sclera/Cornea are reddened in outer aspect of conjuctiva of right eye, inner aspect of conjuctiva of right eye, outer aspect of conjuctiva of left eye and inner aspect of conjunctiva of left eye. Derm: Skin is pink, warm \T\ dry. Musculoskeletal: Range of motion: intact in all extremities. Vital Signs: 15:54 BP 122 / 76; Pulse 75; Resp 16; Temp 98.5(O); Pulse Ox 100% on R/A; Weight 71.21 kg; hb Height 5 ft. 7 in. ; Pain 4/10; 15:54 Body Mass Index 24.59 (71.21 kg, 170.18 cm) hb 15:54 Pain Scale: Adult hb ED Course: 15:34 Patient arrived in ED. mr 15:51 Jay Shukla MD is Attending Physician. rt 15:56 Triage completed. hb 15:57 Arm band placed on. hb 16:04 Jo Red is Primary Nurse. cp4 17:03 No provider procedures requiring assistance completed. Patient did not have IV access mb9 during this emergency room visit. Administered Medications: No medications were administered Outcome: 16:36 Discharge ordered by MD. rt 17:03 Discharged to home ambulatory, mb9 17:03 Condition: stable 17:03 Discharge instructions given to patient, Instructed on discharge instructions, follow up and referral plans. Demonstrated understanding of instructions, follow-up care, medications, Prescriptions given X 1, 17:03 Patient left the ED. mb9 Signatures: Siobhan Nguyễn, Reg Reg ParikhIsha, RN RN Siobhan Lunsford, RN RN mb9 Jay Shukla MD MD rt Jo Red cp4
--- NOTE | 2023-11-12 16:37 | EDPHYS ---
Physician Documentation [facility] Name: Angel Leonardo Age: 28 yrs Sex: Female : 1995 Arrival Date: 11/12/2023 Time: 15:31 Bed 17 Private MD: ED Physician Jay Shukla HPI: 11/12 17:48 This 28 yrs old Female presents to ER via Ambulatory with complaints of Eye rt Problem. 17:48 Patient presents to the ED with bilateral eye redness. This occurred about 3 days ago, rt when she slept with make-up on. Initially started on the right eye, had discharge associated with that, that does seem to be modestly improving, the left eye now is somewhat involved. Denies foreign body sensation, discrete injury. Denies other acute complaints, symptoms are mild in severity, no other aggravating elevating factors.. Historical: - Allergies: 15:56 No Known Allergies; hb - PMHx: 15:56 Lupus; hb ROS: 17:48 Constitutional: Negative for fever, chills, and weight loss, Cardiovascular: Negative rt for chest pain, palpitations, and edema, Respiratory: Negative for shortness of breath, cough, wheezing, and pleuritic chest pain, Skin: Negative for injury, rash, and discoloration, Neuro: Negative for headache, weakness, numbness, tingling, and seizure, Psych: Negative for depression, anxiety, suicide ideation, homicidal ideation, and hallucinations, 17:48 Eyes: Positive for discharge, redness, Negative for blurry vision, Exam: 17:48 Constitutional: This is a well developed, well nourished patient who is awake, alert, rt and in no acute distress. Head/Face: Normocephalic, atraumatic. Chest/axilla: Normal chest wall appearance and motion. Nontender with no deformity. No lesions are appreciated. Cardiovascular: Regular rate and rhythm with a normal S1 and S2. No gallops, murmurs, or rubs. Normal PMI, no JVD. No pulse deficits. Respiratory: Lungs have equal breath sounds bilaterally, clear to auscultation and percussion. No rales, rhonchi or wheezes noted. No increased work of breathing, no retractions or nasal flaring. Abdomen/GI: Soft, non-tender, with normal bowel sounds. No distension or tympany. No guarding or rebound. No evidence of tenderness throughout. Skin: Warm, dry with normal turgor. Normal color with no rashes, no lesions, and no evidence of cellulitis. MS/ Extremity: Pulses equal, no cyanosis. Neurovascular intact. Full, normal range of motion. Neuro: Awake and alert, GCS 15, oriented to person, place, time, and situation. Cranial nerves II-XII grossly intact. Motor strength 5/5 in all extremities. Sensory grossly intact. Cerebellar exam normal. Normal gait. Psych: Awake, alert, with orientation to person, place and time. Behavior, mood, and affect are within normal limits. 17:48 Eyes: Conjunctival injection bilaterally, mild discharge noted, extraocular muscles are intact, pupils likely round reactive to light. Vital Signs: 15:54 BP 122 / 76; Pulse 75; Resp 16; Temp 98.5(O); Pulse Ox 100% on R/A; Weight 71.21 kg; hb Height 5 ft. 7 in. ; Pain 4/10; 15:54 Body Mass Index 24.59 (71.21 kg, 170.18 cm) hb 15:54 Pain Scale: Adult hb MDM: 16:31 Patient medically screened. rt 17:48 Differential diagnosis: Viral conjunctivitis, bacterial conjunctivitis, chemical rt conjunctivitis. Data reviewed: vital signs, nurses notes. Test considered but Not performed: Other Details Denies discrete trauma, obvious conjunctivitis on examination, fluorescein stain not indicated.. Counseling: I had a detailed discussion with the patient and/or guardian regarding the historical points, exam findings, and any diagnostic results supporting the discharge/admit diagnosis, the need for outpatient follow up, to return to the emergency department if symptoms worsen or persist or if there are any questions or concerns that arise at home. Administered Medications: No medications were administered Disposition Summary: 11/12/23 16:36 Discharge Ordered Notes: Location: Home rt Problem: new rt Symptoms: are unchanged rt Condition: Stable rt Diagnosis - Unspecified acute conjunctivitis, bilateral rt Followup: rt - With: Private Physician - When: 2 - 3 days - Reason: Discharge Instructions: - Discharge Summary Sheet rt - Bacterial Conjunctivitis, Adult rt Forms: - Work release form eb - Medication Reconciliation Form rt - Thank You Letter rt - Antibiotic Education rt - Prescription Opioid Use rt - Patient Portal Instructions rt - Leadership Thank You Letter rt Prescriptions: - Erythromycin 5 mg/gram (0.5 %) Ophthalmic ointment - apply 1 ribbon OPHTHALMIC route every 8 hours; 1 Each; Refills: 0, Product rt Selection Permitted Signatures: Isha Parikh, RN RN Jay Montes De Oca MD MD rt
[2023-11-12 18:51] VITALS: BP 122/76; TEMP 98.5; O2SAT 100
== END ==
LOC: ER 15:31
DX: H10.33 Unspecified acute conjunctivitis, bilateral (principal)

== ENCOUNTER → 2023-12-27 | Emergency (ER) | payer OTHER ==
[~2023-12-27] MED LIST: AZITHROMYCIN 250 MG TAB ONE; GUAIFENESIN/DM 5 ML UCUP ONE; IBUPROFEN 400 MG TAB ONE; ONDANSETRON 4 MG (ODT) TAB ONE
--- OUTSIDE RECORDS SUMMARY | 2023-12-27 05:03 | XMS REPORT | Continuity of Care Document ---
Author Name Unknown Address [address] [facility] [address] [place] [address] [facility] thconnect Address [address] [facility] [address] [place] [address] Care Team Providers Care Clipper And Turner Name Role Phone Pcp, Patient Does Not Have A Primary Care Physic negrito LARA TABARES Attending Clinician Unavail able Lara Alfonso Attending Clinician + JAMAICA BATISTA Attending Clinician Unavailable Jamaica Batista MD Attending Clinician [phone] Zoya Marcos MD Attending Clinician [phone] Bam Severino DO Attending Clinician [phone] Hortencia Turpin MD Attending Clinician [phone] BERYL FAGAN Attending Clinician Unavailable ZULAY TODD Attending Clinician UnavailZulay Welch CNM Attending Clinician [phone] Doctor Unassigned, [place] Attending Clinician U navailANGELITA Gilbert Attending Clinician Unavailable Jordan Peace-Np/High Attending Clinician Unav ailable Angelita Ramos Attending Clinician [phone] ProviderJordan Temp Attending Clinician Alisha Francie Yan NP Attending Clinician [phone] THAO MCNEIL Attending Clinician Unamelvina ailignacio Ultrasound, [facility] Attending Clinician UnavailThao Hope MD Attending Clinician + Madyson Lynn Attending Clinician [phone] Lab, [facility] Attending Clinician Unavailable 1, [facility] Attending Clinician Unavailab Margie Magana Attending Clinician Unavailabl e Dallin, [facility] Attending Clinician Unavailable MARGIE MARISCAL Attending Clinician Unavailable Margie Mariscal MD Attending Clinician [phone] JOVAN REYNA Attending Clinician Unavailabl JOVAN Costa Attending Clinician Unavailabl yamilex SWAIN, Jovan Vizcaino Attending Clinician [phone] JOVAN CRUZ Attending Clinician Unavailabl e Carlene, [facility] Nurse Attending Clinician Unava Benjamin Andrade DO Attending Clinician [phone] oJvana Bob Attending Clinician + [phone] JOVANA HUGO Attending Clinician Unavailab Adriana Diaz MD Attending Clinician + Dank Benito MD Attending Clinician [phone] Venus Mack Attending Clinician + [phone] JAMAICA BATISTA Admitting Clinician Unavailable Jamaica Batista MD Admitting Clinician [phone] Adriana Sanabria MD Admitting Clinician + Payers Payer Name Policy Type Policy Number Effective Date Expirati on Date Source [facility] [id number] 2019 00:00:00 Problems Condition Name Condition Details Condition Category Status Onset Date Resolution Date Last Treatment Date Treating Clinician Comments Source Well woman exam Well woman exam Disease Active 12-18 00:00: 00 [facility] Over weight Over weight Disease Active 12-18 00:00: 00 [facility] 39 weeks gestation of 39 weeks gestation of Disease Active 0 1-07 00:00: 00 [facility] History of tubal ligation History of tubal ligation Disease Active 2022-10 2-14 00:00: 00 [facility] Heartburn during in third trimester Heartburn during in third trimester Disease Active 2022-10 1-14 00:00: 00 [facility] History of asthma History of asthma Disease Active 0 7-21 00:00: 00 [facility] Nausea and vomiting during Nausea and vomiting during Disease Active 0 5-16 00:00: 00 [facility] Well woman exam Well woman exam Disease Active 2021-10 2-27 00:00: 00 [facility] Iron deficiency anemia Iron deficiency anemia Disease Active 2021-10 1-10 00:00: 00 [facility] Oral contracept saadia pill surveillan ce Oral contracept saadia pill surveillan ce Disease Active 2021-10 1-10 00:00: 00 [facility] Declines flu vaccine Declines flu vaccine Disease Active 2020-0 8-03 00:00: 00 [facility] Need for HPV vaccine Need for HPV vaccine Disease Active 2020-0 8-03 00:00: 00 [facility] Anemia, Anemia, Disease Active 2020-0 6-21 00:00: 00 [facility] (normal spontaneou s vaginal delivery) (normal spontaneou s vaginal delivery) Disease Active 2020-0 6-21 00:00: 00 [facility] Single live Single live Disease Active 2020-0 6-21 00:00: 00 [facility] Anemia of mother in , antepartum Anemia of mother in , antepartum Disease Active 2020-0 4-01 00:00: 00 [facility] Cramping affecting , antepartum Cramping affecting , antepartum Disease Active 2020-0 3-03 00:00: 00 [facility] Pain of round ligament during Pain of round ligament during Disease Active 2020-0 3-03 00:00: 00 [facility] Rubella non-immune status, antepartum Rubella non-immune status, antepartum Disease Active 2018-10 00:00: 00 Overview: Formattin g of this note might be different from the original. Address pp [facility] History of systemic lupus erythemato sharmaine (SLE) History of systemic lupus erythemato sharmaine (SLE) Disease Active 2018-10 00:00: 00 Overview: Formattin g of this note might be different from the original. Reports dx in 2016, but did not follow up [facility] History of lupus History of lupus Disease Active 2018-10 00:00: 00 Overview: Formattin g of this note might be different from the original. Reports dx in 2015, but did not follow up [facility] History of depression History of depression Disease Active 02-22 00:00: 00 [facility] Allergies, Adverse Reactions, Alerts Allergy Name Allergy Type Status Severity Reaction(s) Onset Date Inactive Date Treating Clinician Comments Source NO KNOWN ALLERGIE S Drug Class Active [facility] Social History Social Habit Start Date Stop Date Quantity Comments Source ASSERTION 2023-02-05 00:00:00 [facility] History of tobacco use Cigarette Smoker [facility] Gender identity [facility] Sexual orientation [facility] History SDOH Alcohol Frequency [facility] History SDOH Alcohol Std Drinks [facility] History SDOH Alcohol Binge [facility] History of Social function 2023-12-19 00:00:00 2023-12-19 00:00:00 [facility] Alcohol intake 2023-12-19 00:00:00 2023-12-19 00:00:00 Ex-drinker (finding) [facility] Exposure to SARS-CoV-2 (event) 2023-02-18 00:00:00 2023-02-28 14:24:00 Not sure [facility] Tobacco Comment 2023-02-28 00:00:00 2023-02-28 00:00:00 Stopped for . Not an everyday smoker, only social. [facility] Tobacco use and exposure 2023-02-28 00:00:00 2023-02-28 00:00:00 Smokeless tobacco non-user [facility] Alcohol Comment 2017-02-22 00:00:00 2017-02-22 00:00:00 occasionally [facility] Sex Assigned At 1995 00:00:00 1995 00:00:00 [facility] Smoking Status Start Date Stop Date Source Ex-smoker 2023-02-28 00:00:00 [facility]23[facility] Medications Ordered Medication Name Filled Medication Name Start Date Stop Date Current Medication? Ordering Clinician Indication Dosage Frequency Signature (SIG) Comments Components Source levonorgest rel-ethinyl estradiol (SRONYX) 0.1-20 mg-mcg per tablet 12-18 00:00: 00 Yes [id number] 1{tbl} Take 1 tablet by mouth in the morning. [facility] levonorgest rel-ethinyl estradiol (SRONYX) 0.1-20 mg-mcg per tablet 12-18 00:00: 00 Yes [id number] 1{tbl} Take 1 tablet by mouth in the morning. [facility] levonorgest rel-ethinyl estradiol (SRONYX) 0.1-20 mg-mcg per tablet 12-18 00:00: 00 Yes [id number] 1{tbl} Take 1 tablet by mouth in the morning. [facility] vitamin w/FA tablet 10-25 00:00: 00 Yes [id number] 1{tbl} Take 1 tablet by mouth in the morning. [facility] docusate 100 mg capsule 10-25 00:00: 00 Yes [id number] 200mg Take 2 capsules by mouth once daily as needed for Constipati on. [facility] ferrous sulfate 325 mg (65 mg iron) tablet 10-25 00:00: 00 Yes [id number] 325mg Take 1 tablet by mouth in the morning and 1 tablet in the evening. [facility] ibuprofen 600 mg tablet 10-25 00:00: 00 Yes [id number] 600mg Take 1 tablet by mouth every 6 (six) hours as needed (Pain). Take with food or milk. [facility] vitamin w/FA tablet 2023-0 10-25 00:00: 00 Yes [id number] 1{tbl} Take 1 tablet by mouth in the morning. [facility] docusate 100 mg capsule 0 10-25 00:00: 00 Yes [id number] 200mg Take 2 capsules by mouth once daily as needed for Constipati on. [facility] ferrous sulfate 325 mg (65 mg iron) tablet 0 10-25 00:00: 00 Yes [id number] 325mg Take 1 tablet by mouth in the morning and 1 tablet in the evening. [facility] ibuprofen 600 mg tablet 10-25 00:00: 00 Yes [id number] 600mg Take 1 tablet by mouth every 6 (six) hours as needed (Pain). Take with food or milk. [facility] vitamin w/FA tablet 10-25 00:00: 00 Yes [id number] 1{tbl} Take 1 tablet by mouth in the morning. [facility] docusate 100 mg capsule 10-25 00:00: 00 Yes [id number] 200mg Take 2 capsules by mouth once daily as needed for Constipati on. [facility] ferrous sulfate 325 mg (65 mg iron) tablet 0 10-25 00:00: 00 Yes [id number] 325mg Take 1 tablet by mouth in the morning and 1 tablet in the evening. [facility] ibuprofen 600 mg tablet 2023-0 10-25 00:00: 00 Yes [id number] 600mg Take 1 tablet by mouth every 6 (six) hours as needed (Pain). Take with food or milk. [facility] ferrous sulfate 325 mg (65 mg iron) tablet 2023-0 10-25 00:00: 00 Yes [id number] 325mg Take 1 tablet by mouth in the morning and 1 tablet in the evening. [facility] ibuprofen 600 mg tablet 2023-0 10-25 00:00: 00 Yes [id number] 600mg Take 1 tablet by mouth every 6 (six) hours as needed (Pain). Take with food or milk. [facility] ferrous sulfate 325 mg (65 mg iron) tablet 10-25 00:00: 00 Yes [id number] 325mg Take 1 tablet by mouth in the morning and 1 tablet in the evening. [facility] ibuprofen 600 mg tablet 10-25 00:00: 00 Yes [id number] 600mg Take 1 tablet by mouth every 6 (six) hours as needed (Pain). Take with food or milk. [facility] ferrous sulfate 325 mg (65 mg iron) tablet 10-25 00:00: 00 Yes [id number] 325mg Take 1 tablet by mouth in the morning and 1 tablet in the evening. [facility] ibuprofen 600 mg tablet 10-25 00:00: 00 Yes [id number] 600mg Take 1 tablet by mouth every 6 (six) hours as needed (Pain). Take with food or milk. [facility] vitamin w/FA tablet 10-25 00:00: 00 12-18 00:00 :00 No [id number] 1{tbl} Take 1 tablet by mouth in the morning. [facility] docusate 100 mg capsule 10-25 00:00: 00 12-18 00:00 :00 No [id number] 200mg Take 2 capsules by mouth once daily as needed for Constipati on. [facility] vitamin w/FA tablet 10-25 00:00: 00 12-18 00:00 :00 No [id number] 1{tbl} Take 1 tablet by mouth in the morning. [facility] docusate 100 mg capsule 2023-10-25 00:00: 00 12-18 00:00 :00 No [id number] 200mg Take 2 capsules by mouth once daily as needed for Constipati on. [facility] vitamin w/FA tablet 2023-0 10 00:00: 00 12-18 00:00 :00 No [id number] 1{tbl} Take 1 tablet by mouth in the morning. [facility] docusate 100 mg capsule 10-25 00:00: 00 12-18 00:00 :00 No [id number] 200mg Take 2 capsules by mouth once daily as needed for Constipati on. [facility] sodium citrate-cit lita acid (BICITRA) 500-334 mg/5 mL solution 30 mL 10-23 14:45: 00 10-23 14:01 :00 No 30mL 30 mL, Oral, ONCE, 1 dose, On Mon10/23/23 at 0845, Routine [facility] ketorolac (TORADOL) injection 15 mg 10-23 14:44: 32 10-28 05:59 :00 Yes 15mg 15 mg, Slow IV Push, Q6HPRN, 4 doses, Starting on Mon10/23/23 at 0844, Until Mon10/27/23 at 2359, Routine, Pain (scale 1-3) [facility] ketorolac (TORADOL) injection 15 mg 10-23 14:44: 32 10-28 05:59 :00 Yes 15mg 15 mg, Slow IV Push, Q6HPRN, 4 doses, Starting on Mon10/23/23 at 0844, Until Mon10/27/23 at 2359, Routine, Pain (scale 1-3) [facility] naloxone (NARCAN) injection 0.2 mg 10-23 14:43: 29 Yes .2mg 0.2 mg, Intramuscu lar, Q3HPRN, Starting on Mon10/23/23 at 0843, Until Discontinu ed, Routine, Itching [facility] diphenhydrA MINE (BENADRYL) tablet 25 mg 10-23 14:43: 29 Yes 25mg 25 mg, Oral, Q4HPRN, Starting on Mon10/23/23 at 0843, Until Discontinu ed, Routine, Itching [facility] naloxone (NARCAN) injection 0.2 mg 10-23 14:43: 29 Yes .2mg 0.2 mg, Intramuscu lar, Q3HPRN, Starting on Mon10/23/23 at 0843, Until Discontinu ed, Routine, Itching [facility] diphenhydrA MINE (BENADRYL) tablet 25 mg 10-23 14:43: 29 Yes 25mg 25 mg, Oral, Q4HPRN, Starting on Mon10/23/23 at 0843, Until Discontinu ed, Routine, Itching [facility] naloxone (NARCAN) injection 0.4 mg 10-23 14:43: 29 10-25 14:42 :29 Yes .4mg 0.4 mg, Slow IV Push, PRN - SEE INSTRUCTIO NS, Starting on Mon10/23/23 at 0843, Until Mon10/25/23 at 0842, Routine, Sedation/R espiratory Depression , Analgesia recovery [facility] HYDROcodone -acetaminop hen (NORCO 5) 5-325 mg tablet 2 tablet 10-23 14:06: 16 Yes 2{tbl} 2 tablet, Oral, Q6HPRN, Starting on Mon10/23/23 at 0806, Until Discontinu ed, Routine, Pain (scale 7-10) [facility] HYDROcodone -acetaminop hen (NORCO 5) 5-325 mg tablet 2 tablet 10-23 14:06: 16 Yes 2{tbl} 2 tablet, Oral, Q6HPRN, Starting on Mon10/23/23 at 0806, Until Discontinu ed, Routine, Pain (scale 7-10) [facility] HYDROcodone -acetaminop hen (NORCO 5) 5-325 mg tablet 1 tablet 10-23 14:06: 12 Yes 1{tbl} 1 tablet, Oral, Q6HPRN, Starting on Mon10/23/23 at 0806, Until Discontinu ed, Routine, Pain (scale 4-6) [facility] HYDROcodone -acetaminop hen (NORCO 5) 5-325 mg tablet 1 tablet 10-23 14:06: 12 Yes 1{tbl} 1 tablet, Oral, Q6HPRN, Starting on Mon10/23/23 at 0806, Until Discontinu ed, Routine, Pain (scale 4-6) [facility] rho(D) immune globulin (RHOGAM) syringe 300 mcg 10-23 11:33: 18 Yes 300ug 300 mcg, Intramuscu lar, ONCE, For 1 dose, Conditiona l, Routine [facility] rho(D) immune globulin (RHOGAM) syringe 300 mcg 10-23 11:33: 18 Yes 300ug 300 mcg, Intramuscu lar, ONCE, For 1 dose, Conditiona l, Routine [facility] ibuprofen (IBU) tablet 600 mg 10-23 11:33: 15 Yes 600mg 600 mg, Oral, Q6HPRN, Starting on Mon10/23/23 at 0533, Until Discontinu ed, Routine, Pain (scale 4-6) [facility] acetaminoph en (TYLENOL) tablet 650 mg 10-23 11:33: 15 Yes 650mg 650 mg, Oral, Q6HPRN, Starting on Mon10/23/23 at 0533, Until Discontinu ed, Routine, Pain (scale 1-3) [facility] diphenhydrA MINE (BENADRYL) tablet 25 mg 10-23 11:33: 15 Yes 25mg 25 mg, Oral, Q6HPRN, Starting on Mon10/23/23 at 0533, Until Discontinu ed, Routine, Sleep, Itching [facility] ondansetron (ZOFRAN (PF)) injection 4 mg 10-23 11:33: 15 Yes 4mg 4 mg, Slow IV Push, Q8HPRN, Starting on Mon10/23/23 at 0533, Until Discontinu ed, Routine, Nausea and Vomiting (N/V) [facility] simethicone (GAS RELIEF (SIMETHICON E)) chewable tablet 160 mg 10-23 11:33: 15 Yes 160mg 160 mg, Oral, PC+HSPRN, Starting on Mon10/23/23 at 0533, Until Discontinu ed, Routine, Gas [facility] docusate (COLACE) capsule 200 mg 10-23 11:33: 15 Yes 200mg 200 mg, Oral, QDAILYPRN, Starting on Mon10/23/23 at 0533, Until Discontinu ed, Routine, Constipati on [facility] magnesium hydroxide (MILK OF MAGNESIA) 400 mg/5 mL suspension 30 mL 10-23 11:33: 15 Yes 30mL 30 mL, Oral, QDAILYPRN, Starting on Mon10/23/23 at 0533, Until Discontinu ed, Routine, Constipati on [facility] benzocaine- menthol (DERMOPLAST ) 20-0.5 % topical spray 10-23 11:33: 15 Yes Topical, PRN, Starting on Mon10/23/23 at 0533, Until Discontinu ed, Routine, Perineum discomfort [facility] ibuprofen (IBU) tablet 600 mg 10-23 11:33: 15 Yes 600mg 600 mg, Oral, Q6HPRN, Starting on Mon10/23/23 at 0533, Until Discontinu ed, Routine, Pain (scale 4-6) [facility] acetaminoph en (TYLENOL) tablet 650 mg 10-23 11:33: 15 Yes 650mg 650 mg, Oral, Q6HPRN, Starting on Mon10/23/23 at 0533, Until Discontinu ed, Routine, Pain (scale 1-3) [facility] diphenhydrA MINE (BENADRYL) tablet 25 mg 10-23 11:33: 15 Yes 25mg 25 mg, Oral, Q6HPRN, Starting on Mon10/23/23 at 0533, Until Discontinu ed, Routine, Sleep, Itching [facility] ondansetron (ZOFRAN (PF)) injection 4 mg 10-23 11:33: 15 Yes 4mg 4 mg, Slow IV Push, Q8HPRN, Starting on Mon10/23/23 at 0533, Until Discontinu ed, Routine, Nausea and Vomiting (N/V) [facility] simethicone (GAS RELIEF (SIMETHICON E)) chewable tablet 160 mg 10-23 11:33: 15 Yes 160mg 160 mg, Oral, PC+HSPRN, Starting on Mon10/23/23 at 0533, Until Discontinu ed, Routine, Gas [facility] docusate (COLACE) capsule 200 mg 10-23 11:33: 15 Yes 200mg 200 mg, Oral, QDAILYPRN, Starting on Mon10/23/23 at 0533, Until Discontinu ed, Routine, Constipati on [facility] magnesium hydroxide (MILK OF MAGNESIA) 400 mg/5 mL suspension 30 mL 10-23 11:33: 15 Yes 30mL 30 mL, Oral, QDAILYPRN, Starting on Mon10/23/23 at 0533, Until Discontinu ed, Routine, Constipati on [facility] benzocaine- menthol (DERMOPLAST ) 20-0.5 % topical spray 10-23 11:33: 15 Yes Topical, PRN, Starting on Mon10/23/23 at 0533, Until Discontinu ed, Routine, Perineum discomfort [facility] lactated ringers IV infusion 1,000 mL 10-23 08:00: 00 10-23 09:50 :37 No 1000mL at 125 mL/hr, 1,000 mL, IV Infusion, ONCE, 1 dose, On Mon10/23/23 at 0200, VIVEK [facility] ondansetron (ZOFRAN (PF)) injection 4 mg 10-23 03:30: 00 10-23 02:51 :00 No 4mg 4 mg, Slow IV Push, ONCE, On Mon10/22/23 at 2130, For 1 dose
Do ses of ondansetro n 16 mg and above need to be administer ed via IV piggyback. For Dose >=24mg ECG monitoring is advisable.
[facility] ropivacaine 0.2 % (NAROPIN (PF)) epidural infusion 10-23 02:01: 00 10-23 09:10 :54 No Epidural, CONTINUOUS PRN, Starting on Mon10/22/23 at 2001, Until Mon10/23/23 at 0310, Routine, Intra-op [facility] lidocaine-e pinephrine (XYLOCAINE W/EPINEPHRI NE) 1.5 %-1:200,000 injection 10-23 02:00: 00 10-23 09:10 :54 No Epidural, ONCE INTRA PROCEDURE, Starting on Mon10/22/23 at 2000, Until Mon10/23/23 at 0310, Routine, Intra-op [facility] lidocaine 1% (XYLOCAINE) 100 mg/10 mL (1 %) injection 10-23 01:58: 00 10-23 09:10 :54 No Infiltrati on, ONCE INTRA PROCEDURE, Starting on Mon10/22/23 at 1958, Until Mon10/23/23 at 031, Routine, Intra-op [facility] morpHINE (2 mg/mL) injection 4 mg 10-23 01:00: 00 10-23 00:15 :00 No 4mg 4 mg, Slow IV Push, ONCE, 1 dose, On Mon10/22/23 at 1900, Routine [facility] HYDROcodone -acetaminop hen 5-325 mg tablet 10-23 00:00: 00 10-31 05:59 :00 Yes [id number] 1{tbl} Take 1 tablet by mouth every 6 (six) hours as needed for Pain (scale 7-10) for up to 7 days. Indication s: acute pain [facility] HYDROcodone -acetaminop hen 5-325 mg tablet 10-23 00:00: 00 10-31 05:59 :00 Yes [id number] 1{tbl} Take 1 tablet by mouth every 6 (six) hours as needed for Pain (scale 7-10) for up to 7 days. Indication s: acute pain [facility] oxytocin (PITOCIN) 30 units in NS 500 mL IV infusion 10-22 19:37: 03 10-24 01:13 :41 No 2mU/min at 2-40 mL/hr, IV Infusion, TITRATE, Starting on Mon10/22/23 at 1337, Until Mon10/23/23 at 1913, IVVEK [facility] lactated ringers IV infusion 500 mL 10-22 19:36: 28 10-24 01:13 :41 No 500mL at 999 mL/hr, 500 mL, IV Infusion, PRN - SEE INSTRUCTIO NS, Starting on 10/22/23 at 1336, Until 10/23/23 at 1913, Routine [facility] [id number]-LR IV infusion 1,000 mL 10-22 19:36: 28 10-24 01:13 :41 No 1000mL at 1-125 mL/hr, IV Infusion, TITRATE, Starting on 10/22/23 at 1336, Until 10/23/23 at 1913, Routine [facility] sodium citrate-cit lita acid (BICITRA) 500-334 mg/5 mL solution 30 mL 10-22 19:36: 28 10-23 01:58 :00 No 30mL 30 mL, Oral, PRE-PROCED URE ONCE, 1 dose, Starting on Mon10/22/23 at 1336, Until Discontinu ed, Routine, Surgery/Pr ocedure [facility] albuterol 90 mcg/actuati on inhaler 2022-10 00:00: 00 Yes [id number] 2{puff} Inhale 2 Puffs every 6 (six) hours as needed for Wheezing, Shortness of Breath or Chest tightness. [facility] albuterol 90 mcg/actuati on inhaler 2022-10 00:00: 00 Yes [id number] 2{puff} Inhale 2 Puffs every 6 (six) hours as needed for Wheezing, Shortness of Breath or Chest tightness. [facility] albuterol 90 mcg/actuati on inhaler 2022-10 00:00: 00 Yes [id number] 2{puff} Inhale 2 Puffs every 6 (six) hours as needed for Wheezing, Shortness of Breath or Chest tightness. [facility] albuterol 90 mcg/actuati on inhaler 2022-10 00:00: 00 Yes [id number] 2{puff} Inhale 2 Puffs every 6 (six) hours as needed for Wheezing, Shortness of Breath or Chest tightness. [facility] albuterol 90 mcg/actuati on inhaler 2022-10 00:00: 00 Yes [id number] 2{puff} Inhale 2 Puffs every 6 (six) hours as needed for Wheezing, Shortness of Breath or Chest tightness. [facility] albuterol 90 mcg/actuati on inhaler 2022-10 00:00: 00 Yes [id number] 2{puff} Inhale 2 Puffs every 6 (six) hours as needed for Wheezing, Shortness of Breath or Chest tightness. [facility] albuterol 90 mcg/actuati on inhaler 2022-10 00:00: 00 Yes [id number] 2{puff} Inhale 2 Puffs every 6 (six) hours as needed for Wheezing, Shortness of Breath or Chest tightness. [facility] albuterol 90 mcg/actuati on inhaler 2022-10 00:00: 00 Yes [id number] 2{puff} Inhale 2 Puffs every 6 (six) hours as needed for Wheezing, Shortness of Breath or Chest tightness. [facility] albuterol 90 mcg/actuati on inhaler 2022-10 00:00: 00 Yes [id number] 2{puff} Inhale 2 Puffs every 6 (six) hours as needed for Wheezing, Shortness of Breath or Chest tightness. [facility] albuterol 90 mcg/actuati on inhaler 2022-10 00:00: 00 Yes [id number] 2{puff} Inhale 2 Puffs every 6 (six) hours as needed for Wheezing, Shortness of Breath or Chest tightness. [facility] albuterol 90 mcg/actuati on inhaler 2022-10 00:00: 00 Yes [id number] 2{puff} Inhale 2 Puffs every 6 (six) hours as needed for Wheezing, Shortness of Breath or Chest tightness. [facility] albuterol 90 mcg/actuati on inhaler 2022-10 00:00: 00 Yes [id number] 2{puff} Inhale 2 Puffs every 6 (six) hours as needed for Wheezing, Shortness of Breath or Chest tightness. [facility] albuterol 90 mcg/actuati on inhaler 2022-10 00:00: 00 Yes [id number] 2{puff} Inhale 2 Puffs every 6 (six) hours as needed for Wheezing, Shortness of Breath or Chest tightness. [facility] albuterol 90 mcg/actuati on inhaler 2022-10 00:00: 00 Yes [id number] 2{puff} Inhale 2 Puffs every 6 (six) hours as needed for Wheezing, Shortness of Breath or Chest tightness. [facility] albuterol 90 mcg/actuati on inhaler 2022-10 00:00: 00 Yes [id number] 2{puff} Inhale 2 Puffs every 6 (six) hours as needed for Wheezing, Shortness of Breath or Chest tightness. [facility] famotidine (PEPCID) 20 mg tablet 2022-10 00:00: 00 Yes [id number] 20mg Take 1 tablet by mouth in the morning and 1 tablet in the evening. [facility] famotidine (PEPCID) 20 mg tablet 2022-10 00:00: 00 Yes [id number] 20mg Take 1 tablet by mouth in the morning and 1 tablet in the evening. [facility] famotidine (PEPCID) 20 mg tablet 2022-10 00:00: 00 Yes [id number] 20mg Take 1 tablet by mouth in the morning and 1 tablet in the evening. [facility] famotidine (PEPCID) 20 mg tablet 2022-10 0 00:00: 00 Yes [id number] 20mg Take 1 tablet by mouth in the morning and 1 tablet in the evening. [facility] famotidine (PEPCID) 20 mg tablet 2022-10 0 00:00: 00 Yes [id number] 20mg Take 1 tablet by mouth in the morning and 1 tablet in the evening. [facility] famotidine (PEPCID) 20 mg tablet 2022-10 0 00:00: 00 Yes [id number] 20mg Take 1 tablet by mouth in the morning and 1 tablet in the evening. [facility] famotidine (PEPCID) 20 mg tablet 2022-10 00:00: 00 Yes [id number] 20mg Take 1 tablet by mouth in the morning and 1 tablet in the evening. [facility] famotidine (PEPCID) 20 mg tablet 2022-10 0 00:00: 00 Yes [id number] 20mg Take 1 tablet by mouth in the morning and 1 tablet in the evening. [facility] famotidine (PEPCID) 20 mg tablet 2022-10 00:00: 00 Yes [id number] 20mg Take 1 tablet by mouth in the morning and 1 tablet in the evening. [facility] famotidine (PEPCID) 20 mg tablet 2022-10 00:00: 00 Yes [id number] 20mg Take 1 tablet by mouth in the morning and 1 tablet in the evening. [facility] famotidine (PEPCID) 20 mg tablet 2022-10 00:00: 00 Yes [id number] 20mg Take 1 tablet by mouth in the morning and 1 tablet in the evening. [facility] famotidine (PEPCID) 20 mg tablet 2022-10 00:00: 00 Yes [id number] 20mg Take 1 tablet by mouth in the morning and 1 tablet in the evening. [facility] famotidine (PEPCID) 20 mg tablet 2022-10 00:00: 00 Yes [id number] 20mg Take 1 tablet by mouth in the morning and 1 tablet in the evening. [facility] famotidine (PEPCID) 20 mg tablet 2022-10 00:00: 00 Yes [id number] 20mg Take 1 tablet by mouth in the morning and 1 tablet in the evening. [facility] famotidine (PEPCID) 20 mg tablet 2022-10 00:00: 00 Yes [id number] 20mg Take 1 tablet by mouth in the morning and 1 tablet in the evening. [facility] famotidine (PEPCID) 20 mg tablet 2022-10 0 00:00: 00 Yes [id number] 20mg Take 1 tablet by mouth in the morning and 1 tablet in the evening. [facility] famotidine (PEPCID) 20 mg tablet 2022-10 0 00:00: 00 Yes [id number] 20mg Take 1 tablet by mouth in the morning and 1 tablet in the evening. [facility] famotidine (PEPCID) 20 mg tablet 2022-10 0 00:00: 00 12-18 00:00 :00 No [id number] 20mg Take 1 tablet by mouth in the morning and 1 tablet in the evening. [facility] famotidine (PEPCID) 20 mg tablet 2022-10 00:00: 00 12-18 00:00 :00 No [id number] 20mg Take 1 tablet by mouth in the morning and 1 tablet in the evening. [facility] famotidine (PEPCID) 20 mg tablet 2022-10 0 00:00: 00 12-18 00:00 :00 No [id number] 20mg Take 1 tablet by mouth in the morning and 1 tablet in the evening. [facility] Iron Fum & P-FA-Vit B & C No.9 (INTEGRA PLUS) 125 mg iron- 1 mg Cap 2022-10 0 00:00: 00 Yes [id number] 1{capsu le} Take 1 capsule by mouth in the morning. [facility] Iron Fum & P-FA-Vit B & C No.9 (INTEGRA PLUS) 125 mg iron- 1 mg Cap 2022-10 0- 00:00: 00 Yes [id number] 1{capsu le} Take 1 capsule by mouth in the morning. [facility] Iron Fum & P-FA-Vit B & C No.9 (INTEGRA PLUS) 125 mg iron- 1 mg Cap 2022-10 0-13 00:00: 00 Yes [id number] 1{capsu le} Take 1 capsule by mouth in the morning. [facility] Iron Fum & P-FA-Vit B & C No.9 (INTEGRA PLUS) 125 mg iron- 1 mg Cap 2023-1 0-13 00:00: 00 Yes [id number] 1{capsu le} Take 1 capsule by mouth in the morning. [facility] Iron Fum & P-FA-Vit B & C No.9 (INTEGRA PLUS) 125 mg iron- 1 mg Cap 2023-1 0-13 00:00: 00 Yes [id number] 1{capsu le} Take 1 capsule by mouth in the morning. [facility] Iron Fum & P-FA-Vit B & C No.9 (INTEGRA PLUS) 125 mg iron- 1 mg Cap 2023-1 0-13 00:00: 00 Yes [id number] 1{capsu le} Take 1 capsule by mouth in the morning. [facility] Iron Fum & P-FA-Vit B & C No.9 (INTEGRA PLUS) 125 mg iron- 1 mg Cap 3-1 0-13 00:00: 00 Yes [id number] 1{capsu le} Take 1 capsule by mouth in the morning. [facility] Iron Fum & P-FA-Vit B & C No.9 (INTEGRA PLUS) 125 mg iron- 1 mg Cap 3-1 0-13 00:00: 00 Yes [id number] 1{capsu le} Take 1 capsule by mouth in the morning. [facility] Iron Fum & P-FA-Vit B & C No.9 (INTEGRA PLUS) 125 mg iron- 1 mg Cap 2023-1 0-13 00:00: 00 Yes [id number] 1{capsu le} Take 1 capsule by mouth in the morning. [facility] Iron Fum & P-FA-Vit B & C No.9 (INTEGRA PLUS) 125 mg iron- 1 mg Cap 2023-1 0-13 00:00: 00 Yes [id number] 1{capsu le} Take 1 capsule by mouth in the morning. [facility] Iron Fum & P-FA-Vit B & C No.9 (INTEGRA PLUS) 125 mg iron- 1 mg Cap 2023-1 0-13 00:00: 00 Yes [id number] 1{capsu le} Take 1 capsule by mouth in the morning. [facility] Iron Fum & P-FA-Vit B & C No.9 (INTEGRA PLUS) 125 mg iron- 1 mg Cap 3-1 0-13 00:00: 00 Yes [id number] 1{capsu le} Take 1 capsule by mouth in the morning. [facility] Iron Fum & P-FA-Vit B & C No.9 (INTEGRA PLUS) 125 mg iron- 1 mg Cap 3-1 0-13 00:00: 00 Yes [id number] 1{capsu le} Take 1 capsule by mouth in the morning. [facility] Iron Fum & P-FA-Vit B & C No.9 (INTEGRA PLUS) 125 mg iron- 1 mg Cap 3-1 0-13 00:00: 00 Yes [id number] 1{capsu le} Take 1 capsule by mouth in the morning. [facility] Iron Fum & P-FA-Vit B & C No.9 (INTEGRA PLUS) 125 mg iron- 1 mg Cap 3-1 0-13 00:00: 00 Yes [id number] 1{capsu le} Take 1 capsule by mouth in the morning. [facility] Iron Fum & P-FA-Vit B & C No.9 (INTEGRA PLUS) 125 mg iron- 1 mg Cap 2022-1 0-13 00:00: 00 10-25 00:00 :00 No [id number] 1{capsu le} Take 1 capsule by mouth in the morning. [facility] PNV 67-iron ps-folate no.1-dha (VITAFOL ULTRA) 29 mg iron- 1 mg-200 mg Cap 2022-0 8-03 00:00: 00 11-15 05:59 :00 No [id number] 1{tbl} Take 1 tablet by mouth in the morning for 180 days. [facility] PNV 67-iron ps-folate no.1-dha (VITAFOL ULTRA) 29 mg iron- 1 mg-200 mg Cap 3-0 8-03 00:00: 00 11-15 05:59 :00 No [id number] 1{tbl} Take 1 tablet by mouth in the morning for 180 days. [facility] PNV 67-iron ps-folate no.1-dha (VITAFOL ULTRA) 29 mg iron- 1 mg-200 mg Cap 3-0 8-03 00:00: 00 11-15 05:59 :00 No [id number] 1{tbl} Take 1 tablet by mouth in the morning for 180 days. [facility] 67-iron ps-folate no.1-dha (VITAFOL ULTRA) 29 mg iron- 1 mg-200 mg Cap 3-0 8-03 00:00: 00 11-15 05:59 :00 No [id number] 1{tbl} Take 1 tablet by mouth in the morning for 180 days. [facility] 67-iron ps-folate no.1-dha (VITAFOL ULTRA) 29 mg iron- 1 mg-200 mg Cap 3-0 8-03 00:00: 00 11-15 05:59 :00 No [id number] 1{tbl} Take 1 tablet by mouth in the morning for 180 days. [facility] 67-iron ps-folate no.1-dha (VITAFOL ULTRA) 29 mg iron- 1 mg-200 mg Cap 3-0 8-03 00:00: 00 11-15 05:59 :00 No [id number] 1{tbl} Take 1 tablet by mouth in the morning for 180 days. [facility] 67-iron ps-folate no.1-dha (VITAFOL ULTRA) 29 mg iron- 1 mg-200 mg Cap 3-0 8-03 00:00: 00 11-15 05:59 :00 No [id number] 1{tbl} Take 1 tablet by mouth in the morning for 180 days. [facility] 67-iron ps-folate no.1-dha (VITAFOL ULTRA) 29 mg iron- 1 mg-200 mg Cap 3-0 8-03 00:00: 00 11-15 05:59 :00 No [id number] 1{tbl} Take 1 tablet by mouth in the morning for 180 days. [facility] 67-iron ps-folate no.1-dha (VITAFOL ULTRA) 29 mg iron- 1 mg-200 mg Cap 3-0 8-03 00:00: 00 11-15 05:59 :00 No [id number] 1{tbl} Take 1 tablet by mouth in the morning for 180 days. [facility] PNV 67-iron ps-folate no.1-dha (VITAFOL ULTRA) 29 mg iron- 1 mg-200 mg Cap 3-0 8-03 00:00: 00 11-15 05:59 :00 No [id number] 1{tbl} Take 1 tablet by mouth in the morning for 180 days. [facility] PNV 67-iron ps-folate no.1-dha (VITAFOL ULTRA) 29 mg iron- 1 mg-200 mg Cap 2022-0 8-03 00:00: 00 11-15 05:59 :00 No [id number] 1{tbl} Take [facility] tablet [facility]VITAFOL ULTRA) 29 mg iron- 1 mg-200 mg Cap 2022-0 8-03 00:00: 00 11-15 05:59 :00 No [id number] 1{tbl} Take 1 tablet by mouth in the morning for 180 days. [facility] PNV 67-iron ps-folate no.1-dha (VITAFOL ULTRA) 29 mg iron- 1 mg-200 mg Cap 2022-0 8-03 00:00: 00 11-15 05:59 :00 No [id number] 1{tbl} Take 1 tablet by mouth in the morning for 180 days. [facility] PNV 67-iron ps-folate no.1-dha (VITAFOL ULTRA) 29 mg iron- 1 mg-200 mg Cap 3-0 8-03 00:00: 00 11-15 05:59 :00 No [id number] 1{tbl} Take 1 tablet by mouth in the morning for 180 days. [facility] PNV 67-iron ps-folate no.1-dha (VITAFOL ULTRA) 29 mg iron- 1 mg-200 mg Cap 3-0 8-03 00:00: 00 11-15 05:59 :00 No [id number] 1{tbl} Take 1 tablet by mouth in the morning for 180 days. [facility] PNV 67-iron ps-folate no.1-dha (VITAFOL ULTRA) 29 mg iron- 1 mg-200 mg Cap 3-0 8-03 00:00: 00 11-15 05:59 :00 No [id number] 1{tbl} Take 1 tablet by mouth in the morning for 180 days. [facility] PNV 67-iron ps-folate no.1-dha (VITAFOL ULTRA) 29 mg iron- 1 mg-200 mg Cap 2022-0 8-03 00:00: 00 11-15 05:59 :00 No [id number] 1{tbl} Take 1 tablet by mouth in the morning for 180 days. [facility] PNV 67-iron ps-folate no.1-dha (VITAFOL ULTRA) 29 mg iron- 1 mg-200 mg Cap 2022-0 8-03 00:00: 00 11-15 05:59 :00 No [id number] 1{tbl} Take 1 tablet by mouth in the morning for 180 days. [facility] PNV 67-iron ps-folate no.1-dha (VITAFOL ULTRA) 29 mg iron- 1 mg-200 mg Cap 3-0 8-03 00:00: 00 11-15 05:59 :00 No [id number] 1{tbl} Take 1 tablet by mouth in the morning for 180 days. [facility] PNV 67-iron ps-folate no.1-dha (VITAFOL ULTRA) 29 mg iron- 1 mg-200 mg Cap 3-0 8-03 00:00: 00 11-15 05:59 :00 No [id number] 1{tbl} Take 1 tablet by mouth in the morning for 180 days. [facility] PNV 67-iron ps-folate no.1-dha (VITAFOL ULTRA) 29 mg iron- 1 mg-200 mg Cap 3-0 8-03 00:00: 00 11-15 05:59 :00 No [id number] 1{tbl} Take 1 tablet by mouth in the morning for 180 days. [facility] PNV 67-iron ps-folate no.1-dha (VITAFOL ULTRA) 29 mg iron- 1 mg-200 mg Cap 3-0 8-03 00:00: 00 11-15 05:59 :00 No [id number] 1{tbl} Take 1 tablet by mouth in the morning for 180 days. [facility] PNV 67-iron ps-folate no.1-dha (VITAFOL ULTRA) 29 mg iron- 1 mg-200 mg Cap 3-0 8-03 00:00: 00 11-15 05:59 :00 No [id number] 1{tbl} Take 1 tablet by mouth in the morning for 180 days. [facility] PNV 67-iron ps-folate no.1-dha (VITAFOL ULTRA) 29 mg iron- 1 mg-200 mg Cap 2022-0 8-03 00:00: 00 11-15 05:59 :00 No [id number] 1{tbl} Take 1 tablet by mouth in the morning for 180 days. [facility] PNV 67-iron ps-folate no.1-dha (VITAFOL ULTRA) 29 mg iron- 1 mg-200 mg Cap 3-0 8-03 00:00: 00 11-15 05:59 :00 No [id number] 1{tbl} Take 1 tablet by mouth in the morning for 180 days. [facility] PNV 67-iron ps-folate no.1-dha (VITAFOL ULTRA) 29 mg iron- 1 mg-200 mg Cap 3-0 8-03 00:00: 00 11-15 05:59 :00 No [id number] 1{tbl} Take 1 tablet by mouth in the morning for 180 days. [facility] PNV 67-iron ps-folate no.1-dha (VITAFOL ULTRA) 29 mg iron- 1 mg-200 mg Cap 3-0 8-03 00:00: 00 10-25 00:00 :00 No [id number] 1{tbl} Take 1 tablet by mouth in the morning for 180 days. [facility] 67-iron ps-folate no.1-dha (VITAFOL ULTRA) 29 mg iron- 1 mg-200 mg Cap 3-0 6-15 00:00: 00 04-30 04:59 :00 No [id number] 1{tbl} Take 1 tablet by mouth in the morning for 30 days. [facility] P[facility] 67-iron ps-folate no.1-dha (VITAFOL ULTRA) 29 mg iron- 1 mg-200 mg Cap 3-0 6-15 00:00: 00 04-30 04:59 :00 No [id number] 1{tbl} Take 1 tablet by mouth in the morning for 30 days. [facility] 67-iron ps-folate no.1-dha (VITAFOL ULTRA) 29 mg iron- 1 mg-200 mg Cap 3-0 6-15 00:00: 00 04-30 04:59 :00 No [id number] 1{tbl} Take 1 tablet by mouth [facility]VITAFOL ULTRA) 29 mg iron- 1 mg-200 mg Cap 2022-0 6-15 00:00: 00 04-30 04:59 :00 No [id number] 1{tbl} Take 1 tablet by mouth in the morning for [facility] days[facility]-d[facility] (VITAFOL ULTRA) 29 mg iron- 1 mg-200 mg Cap 3-0 6-15 00:00: 00 04-30 04:59 :00 No [id number] 1{tbl} Take 1 tablet by mouth in the morning for 30 days. [facility] PNV 67-iron ps-folate no.1-dha (VITAFOL ULTRA) 29 mg iron- 1 mg-200 mg Cap 3-0 6-15 00:00: 00 04-30 04:59 :00 No [id number] 1{tbl} Take 1 tablet by mouth in the morning for 30 days. [facility] PNV 67-iron ps-folate no.1-dha (VITAFOL ULTRA) 29 mg iron- 1 mg-200 mg Cap 2022-0 6-15 00:00: 00 04-30 04:59 :00 No [id number] 1{tbl} Take 1 tablet by mouth in the morning for 30 days. [facility] PNV 67-iron ps-folate no.1-dha (VITAFOL ULTRA) 29 mg iron- 1 mg-200 mg Cap 2022-0 6-15 00:00: 00 04-30 04:59 :00 No [id number] 1{tbl} Take 1 tablet by mouth in the morning for 30 days. [facility] PNV 67-iron ps-folate no.1-dha (VITAFOL ULTRA) 29 mg iron- 1 mg-200 mg Cap 2022-0 6-15 00:00: 00 04-30 04:59 :00 No [id number] 1{tbl} Take 1 tablet by mouth in the morning for 30 days. [facility] PNV 67-iron ps-folate no.1-dha (VITAFOL ULTRA) 29 mg iron- 1 mg-200 mg Cap 2022-0 6-15 00:00: 00 04-30 04:59 :00 No [id number] 1{tbl} Take 1 tablet by mouth in the morning for 30 days. [facility] ( FE ,) 1.5 mg-30 mcg (21)/75 mg (7) per tablet 2021-10 005 00:00: 00 Yes [id number] 1{tbl} Take 1 tablet by mouth in the morning. [facility]th[facility] ne-e.estrad ioL-iron (MARCHL FE .,) 1.5 mg-30 mcg (21)/75 mg (7) per tablet 2021-10 0-05 00:00: 00 Yes [id number] 1{tbl} Take 1 tablet by mouth in the morning. [facility] norethindro ne-e.estrad ioL-iron (MARCHL FE .,) 1.5 mg-30 mcg (21)/75 mg (7) per tablet 2021-10 0-05 00:00: 00 Yes [id number] 1{tbl} Take 1 tablet by mouth in the morning. [facility] ne-e.estrad ioL-iron (MARCHL FE .03/14, 28,) 1.5 mg-30 mcg (21)/75 mg (7) per tablet 2021-10 005 00:00: 00 Yes [id number] 1{tbl} Take 1 tablet by mouth in the morning. [facility] (MARCHL FE .03/14, ,) 1.5 mg-30 mcg (21)/75 mg (7) per tablet 2021-10 005 00:00: 00 Yes [id number] 1{tbl} Take 1 tablet by mouth in the morning. [facility] ioL-iron (MARCHL FE .03/14, ,) 1.5 mg-30 mcg (21)/75 mg (7) per tablet 2021-10 005 00:00: 00 Yes [id number] 1{tbl} Take 1 tablet by mouth in the morning. [facility] ioL-iron (MARCHL FE .03/14, 28,) 1.5 mg-30 mcg (21)/75 mg (7) per tablet 2021-10 005 00:00: 00 Yes [id number] 1{tbl} Take 1 tablet by mouth in the morning. [facility] ne-e.estrad ioL-iron (MARCHL FE .03/14, 28,) 1.5 mg-30 mcg (21)/75 mg (7) per tablet 2021-10 005 00:00: 00 02-28 00:00 :00 No [id number] 1{tbl} Take 1 tablet by mouth in the morning. [facility] metroNIDAZO LE 500 mg tablet - 00:00: 00 07-20 00:00 :00 No [id number] 500mg Take 1 tablet by mouth 2 (two) times daily. [facility] metroNIDAZO LE 500 mg tablet 02-23 00:00: 00 07-20 00:00 :00 No [id number] 500mg Take 1 tablet by mouth 2 (two) times daily. [facility] fluconazole (DIFLUCAN) 150 mg tablet 02-22 00:00: 00 02-23 04:59 :00 No [id number] 150mg Take 1 tablet by mouth once now for 1 dose. [facility] medroxyPROG ESTERone (DEPO-PROVE RA) injection 150 mg 07-13 19:45: 00 06-14 19:44 :00 No [id number] 150mg [facility] Immunizations Ordered Immunization Name Filled Immunization Name Date Status Comments Source Influenza Virus Vaccine Quad IM, Preserv and ABX Free 6 MO-64 YRS 2022-07-20 00:00:00 Completed [facility] Influenza Virus Vaccine Quad IM, Preserv and ABX Free 6 MO-64 YRS 2022-07-20 00:00:00 Completed [facility] Influenza Virus Vaccine Quad IM, Preserv and ABX Free 6 MO-64 YRS 2022-07-20 00:00:00 Completed [facility] Influenza Virus Vaccine Quad IM, Preserv and ABX Free 6 MO-64 YRS 2022-07-20 00:00:00 Completed [facility] Influenza Virus Vaccine Quad IM, Preserv and ABX Free 6 MO-64 YRS 2022-07-20 00:00:00 Completed [facility] Influenza Virus Vaccine Quad IM, Preserv and ABX Free 6 MO-64 YRS 2022-07-20 00:00:00 Completed [facility] Influenza Virus Vaccine Quad IM, Preserv and ABX Free 6 MO-64 YRS 2022-07-20 00:00:00 Completed [facility] Influenza Virus Vaccine Quad IM, Preserv and ABX Free 6 MO-64 YRS 2022-07-20 00:00:00 Completed [facility] Influenza Virus Vaccine Quad IM, Preserv and ABX Free 6 MO-64 YRS 2022-07-20 00:00:00 Completed [facility] Influenza Virus Vaccine Quad IM, Preserv and ABX Free 6 MO-64 YRS 2022-07-20 00:00:00 Completed [facility] Influenza Virus Vaccine Quad IM, Preserv and ABX Free 6 MO-64 YRS 2022-07-20 00:00:00 Completed [facility] Influenza Virus Vaccine Quad IM, Preserv and ABX Free 6 MO-64 YRS 2022-07-20 00:00:00 Completed [facility] Influenza Virus Vaccine Quad IM, Preserv and ABX Free 6 MO-64 YRS 2022-07-20 00:00:00 Completed [facility] Influenza Virus Vaccine Quad IM, Preserv and ABX Free 6 MO-64 YRS 2022-07-20 00:00:00 Completed [facility] Influenza Virus Vaccine Quad IM, Preserv and ABX Free 6 MO-64 YRS 2022-07-20 00:00:00 Completed [facility] Influenza Virus Vaccine Quad IM, Preserv and ABX Free 6 MO-64 YRS 2022-07-20 00:00:00 Completed [facility] Influenza Virus Vaccine Quad IM, Preserv and ABX Free 6 MO-64 YRS 2022-07-20 00:00:00 Completed [facility] Influenza Virus Vaccine Quad IM, Preserv and ABX Free 6 MO-64 YRS 2022-07-20 00:00:00 Completed [facility] Influenza Virus Vaccine Quad IM, Preserv and ABX Free 6 MO-64 YRS 2022-07-20 00:00:00 Completed [facility] Influenza Virus Vaccine Quad IM, Preserv and ABX Free 6 MO-64 YRS 2022-07-20 00:00:00 Completed [facility] Influenza Virus Vaccine Quad IM, Preserv and ABX Free 6 MO-64 YRS 2022-07-20 00:00:00 Completed [facility] Influenza Virus Vaccine Quad IM, Preserv and ABX Free 6 MO-64 YRS (FLUCELVAX) 2022-07-20 00:00:00 Completed [facility] Influenza Virus Vaccine Quad IM, Preserv and ABX Free 6 MO-64 YRS (FLUCELVAX) 2022-07-20 00:00:00 Completed [facility] Influenza Virus Vaccine Quad IM, Preserv and ABX Free 6 MO-64 YRS (FLUCELVAX) 2022-07-20 00:00:00 Completed [facility] Influenza Virus Vaccine Quad IM, Preserv and ABX Free 6 MO-64 YRS (FLUCELVAX) 2022-07-20 00:00:00 Completed [facility] Influenza Virus Vaccine Quad IM, Preserv and ABX Free 6 MO-64 YRS (FLUCELVAX) 2022-07-20 00:00:00 Completed [facility] HPV9 2021-10-05 00:00:00 Completed [facility] HPV9 2021-10-05 00:00:00 Completed [facility] HPV9 2021-10-05 00:00:00 Completed [facility] HPV9 2021-10-05 00:00:00 Completed [facility] HPV9 2021-10-05 00:00:00 Completed [facility] HPV9 2021-10-05 00:00:00 Completed [facility] HPV9 2021-10-05 00:00:00 Completed [facility] HPV9 2021-10-05 00:00:00 Completed [facility] HPV9 2021-10-05 00:00:00 Completed [facility] HPV9 2021-10-05 00:00:00 Completed [facility] HPV9 2021-10-05 00:00:00 Completed [facility] HPV9 2021-10-05 00:00:00 Completed [facility] HPV9 2021-10-05 00:00:00 Completed [facility] HPV9 2021-10-05 00:00:00 Completed [facility] HPV9 2021-10-05 00:00:00 Completed [facility] HPV9 2021-10-05 00:00:00 Completed [facility] HPV9 2021-10-05 00:00:00 Completed [facility] HPV9 2021-10-05 00:00:00 Completed [facility] HPV9 2021-10-05 00:00:00 Completed [facility] HPV9 2021-10-05 00:00:00 Completed [facility] HPV9 2021-10-05 00:00:00 Completed [facility] HPV9 2021-10-05 00:00:00 Completed [facility] HPV9 2021-10-05 00:00:00 Completed [facility] HPV9 2021-10-05 00:00:00 Completed [facility] HPV9 2021-10-05 00:00:00 Completed [facility] HPV9 2021-10-05 00:00:00 Completed [facility] HPV9 2021-10-05 00:00:00 Completed [facility] SARS-COV-2 COVID-19 PFIZER VACCINE 2021-07-31 00:00:00 Completed [facility] SARS-COV-2 COVID-19 PFIZER VACCINE 2021-07-31 00:00:00 Completed [facility] SARS-COV-2 COVID-19 PFIZER VACCINE 2021-07-31 00:00:00 Completed [facility] SARS-COV-2 COVID-19 PFIZER VACCINE 2021-07-31 00:00:00 Completed [facility] SARS-COV-2 COVID-19 PFIZER VACCINE 2021-07-31 00:00:00 Completed [facility] SARS-COV-2 COVID-19 PFIZER VACCINE 2021-07-31 00:00:00 Completed [facility] SARS-COV-2 COVID-19 PFIZER VACCINE 2021-07-31 00:00:00 Completed [facility] SARS-COV-2 COVID-19 PFIZER VACCINE 2021-07-31 00:00:00 Completed [facility] SARS-COV-2 COVID-19 PFIZER VACCINE 2021-07-31 00:00:00 Completed [facility] SARS-COV-2 COVID-19 PFIZER VACCINE 2021-07-31 00:00:00 Completed [facility] SARS-COV-2 COVID-19 PFIZER VACCINE 2021-07-31 00:00:00 Completed [facility] SARS-COV-2 COVID-19 PFIZER VACCINE 2021-07-31 00:00:00 Completed [facility] SARS-COV-2 COVID-19 PFIZER VACCINE 2021-07-31 00:00:00 Completed [facility] SARS-COV-2 COVID-19 PFIZER VACCINE 2021-07-31 00:00:00 Completed [facility] SARS-COV-2 COVID-19 PFIZER VACCINE 2021-07-31 00:00:00 Completed [facility] SARS-COV-2 COVID-19 PFIZER VACCINE 2021-07-31 00:00:00 Completed [facility] SARS-COV-2 COVID-19 PFIZER VACCINE 2021-07-31 00:00:00 Completed [facility] SARS-COV-2 COVID-19 PFIZER VACCINE 2021-07-31 00:00:00 Completed [facility] SARS-COV-2 COVID-19 PFIZER VACCINE 2021-07-31 00:00:00 Completed [facility] SARS-COV-2 COVID-19 PFIZER VACCINE 2021-07-10 00:00:00 Completed [facility] SARS-COV-2 COVID-19 PFIZER VACCINE 2021-07-10 00:00:00 Completed [facility] SARS-COV-2 COVID-19 PFIZER VACCINE 2021-07-10 00:00:00 Completed [facility] SARS-COV-2 COVID-19 PFIZER VACCINE 2021-07-10 00:00:00 Completed [facility] SARS-COV-2 COVID-19 PFIZER VACCINE 2021-07-10 00:00:00 Completed [facility] SARS-COV-2 COVID-19 PFIZER VACCINE 2021-07-10 00:00:00 Completed [facility] SARS-COV-2 COVID-19 PFIZER VACCINE 2021-07-10 00:00:00 Completed [facility] SARS-COV-2 COVID-19 PFIZER VACCINE 2021-07-10 00:00:00 Completed [facility] SARS-COV-2 COVID-19 PFIZER VACCINE 2021-07-10 00:00:00 Completed [facility] SARS-COV-2 COVID-19 PFIZER VACCINE 2021-07-10 00:00:00 Completed [facility] SARS-COV-2 COVID-19 PFIZER VACCINE 2021-07-10 00:00:00 Completed [facility] SARS-COV-2 COVID-19 PFIZER VACCINE 2021-07-10 00:00:00 Completed [facility] SARS-COV-2 COVID-19 PFIZER VACCINE 2021-07-10 00:00:00 Completed [facility] SARS-COV-2 COVID-19 PFIZER VACCINE 2021-07-10 00:00:00 Completed [facility] SARS-COV-2 COVID-19 PFIZER VACCINE 2021-07-10 00:00:00 Completed [facility] SARS-COV-2 COVID-19 PFIZER VACCINE 2021-07-10 00:00:00 Completed [facility] SARS-COV-2 COVID-19 PFIZER VACCINE 2021-07-10 00:00:00 Completed [facility] SARS-COV-2 COVID-19 PFIZER VACCINE 2021-07-10 00:00:00 Completed [facility] SARS-COV-2 COVID-19 PFIZER VACCINE 2021-07-10 00:00:00 Completed [facility] Influenza Virus Vaccine Quad .5 mL IM 6+ MO 2020-08-26 00:00:00 Completed [facility] Influenza Virus Vaccine Quad .5 mL IM 6+ MO 2020-08-26 00:00:00 Completed [facility] Influenza Virus Vaccine Quad .5 mL IM 6+ MO 2020-08-26 00:00:00 Completed [facility] Influenza Virus Vaccine Quad .5 mL IM 6+ MO 2020-08-26 00:00:00 Completed [facility] Influenza Virus Vaccine Quad .5 mL IM 6+ MO 2020-08-26 00:00:00 Completed [facility] Influenza Virus Vaccine Quad .5 mL IM 6+ MO 2020-08-26 00:00:00 Completed [facility] Influenza Virus Vaccine Quad .5 mL IM 6+ MO 2020-08-26 00:00:00 Completed [facility] Influenza Virus Vaccine Quad .5 mL IM 6+ MO 2020-08-26 00:00:00 Completed [facility] Influenza Virus Vaccine Quad .5 mL IM 6+ MO 2020-08-26 00:00:00 Completed [facility] Influenza Virus Vaccine Quad .5 mL IM 6+ MO 2020-08-26 00:00:00 Completed [facility] Influenza Virus Vaccine Quad .5 mL IM 6+ MO 2020-08-26 00:00:00 Completed [facility] Influenza Virus Vaccine Quad .5 mL IM 6+ MO 2020-08-26 00:00:00 Completed [facility] Influenza Virus Vaccine Quad .5 mL IM 6+ MO 2020-08-26 00:00:00 Completed [facility] Influenza Virus Vaccine Quad .5 mL IM 6+ MO 2020-08-26 00:00:00 Completed [facility] Influenza Virus Vaccine Quad .5 mL IM 6+ MO 2020-08-26 00:00:00 Completed [facility] Influenza Virus Vaccine Quad .5 mL IM 6+ MO 2020-08-26 00:00:00 Completed [facility] Influenza Virus Vaccine Quad .5 mL IM 6+ MO 2020-08-26 00:00:00 Completed [facility] Influenza Virus Vaccine Quad .5 mL IM 6+ MO 2020-08-26 00:00:00 Completed [facility] Influenza Virus Vaccine Quad .5 mL IM 6+ MO 2020-08-26 00:00:00 Completed [facility] Influenza Virus Vaccine Quad .5 mL IM 6+ MO 2020-08-26 00:00:00 Completed [facility] Influenza Virus Vaccine Quad .5 mL IM 6+ MO 2020-08-26 00:00:00 Completed [facility] Influenza Virus Vaccine Quad .5 mL IM 6+ MO 2020-08-26 00:00:00 Completed [facility] Influenza Virus Vaccine Quad .5 mL IM 6+ MO (FLUZONE/FLULAVAL/FL UARIX) 2020-08-26 00:00:00 Completed [facility] Influenza Virus Vaccine Quad .5 mL IM 6+ MO (FLUZONE/FLULAVAL/FL UARIX) 2020-08-26 00:00:00 Completed [facility] Influenza Virus Vaccine Quad .5 mL IM 6+ MO (FLUZONE/FLULAVAL/FL UARIX) 2020-08-26 00:00:00 Completed [facility] Influenza Virus Vaccine Quad .5 mL IM 6+ MO (FLUZONE/FLULAVAL/FL UARIX) 2020-08-26 00:00:00 Completed [facility] Influenza Virus Vaccine Quad .5 mL IM 6+ MO (FLUZONE/FLULAVAL/FL UARIX) 2020-08-26 00:00:00 Completed [facility] HPV9 2020-05-18 00:00:00 Completed [facility] HPV9 2020-05-18 00:00:00 Completed [facility] HPV9 2020-05-18 00:00:00 Completed [facility] HPV9 2020-05-18 00:00:00 Completed [facility] HPV9 2020-05-18 00:00:00 Completed [facility] HPV9 2020-05-18 00:00:00 Completed [facility] HPV9 2020-05-18 00:00:00 Completed [facility] HPV9 2020-05-18 00:00:00 Completed [facility] HPV9 2020-05-18 00:00:00 Completed [facility] HPV9 2020-05-18 00:00:00 Completed [facility] HPV9 2020-05-18 00:00:00 Completed [facility] HPV9 2020-05-18 00:00:00 Completed [facility] HPV9 2020-05-18 00:00:00 Completed [facility] HPV9 2020-05-18 00:00:00 Completed [facility] HPV9 2020-05-18 00:00:00 Completed [facility] HPV9 2020-05-18 00:00:00 Completed [facility] HPV9 2020-05-18 00:00:00 Completed [facility] HPV9 2020-05-18 00:00:00 Completed [facility] HPV9 2020-05-18 00:00:00 Completed [facility] HPV9 2020-05-18 00:00:00 Completed [facility] HPV9 2020-05-18 00:00:00 Completed [facility] HPV9 2020-05-18 00:00:00 Completed [facility] HPV9 2020-05-18 00:00:00 Completed [facility] HPV9 2020-05-18 00:00:00 Completed [facility] HPV9 2020-05-18 00:00:00 Completed [facility] HPV9 2020-05-18 00:00:00 Completed [facility] HPV9 2020-05-18 00:00:00 Completed [facility] HPV9 2020-04-06 00:00:00 Completed [facility] MMR 2020-04-06 00:00:00 Completed [facility] HPV9 2020-04-06 00:00:00 Completed [facility] MMR 2020-04-06 00:00:00 Completed [facility] HPV9 2020-04-06 00:00:00 Completed [facility] MMR 2020-04-06 00:00:00 Completed [facility] HPV9 2020-04-06 00:00:00 Completed [facility] MMR 2020-04-06 00:00:00 Completed [facility] HPV9 2020-04-06 00:00:00 Completed [facility] MMR 2020-04-06 00:00:00 Completed [facility] HPV9 2020-04-06 00:00:00 Completed [facility] MMR 2020-04-06 00:00:00 Completed [facility] HPV9 2020-04-06 00:00:00 Completed [facility] MMR 2020-04-06 00:00:00 Completed [facility] HPV9 2020-04-06 00:00:00 Completed [facility] MMR 2020-04-06 00:00:00 Completed [facility] HPV9 2020-04-06 00:00:00 Completed [facility] MMR 2020-04-06 00:00:00 Completed [facility] HPV9 2020-04-06 00:00:00 Completed [facility] MMR 2020-04-06 00:00:00 Completed [facility] HPV9 2020-04-06 00:00:00 Completed [facility] MMR 2020-04-06 00:00:00 Completed [facility] HPV9 2020-04-06 00:00:00 Completed [facility] MMR 2020-04-06 00:00:00 Completed [facility] HPV9 2020-04-06 00:00:00 Completed [facility] MMR 2020-04-06 00:00:00 Completed [facility] HPV9 2020-04-06 00:00:00 Completed [facility] MMR 2020-04-06 00:00:00 Completed [facility] HPV9 2020-04-06 00:00:00 Completed [facility] MMR 2020-04-06 00:00:00 Completed [facility] HPV9 2020-04-06 00:00:00 Completed [facility] MMR 2020-04-06 00:00:00 Completed [facility] HPV9 2020-04-06 00:00:00 Completed [facility] MMR 2020-04-06 00:00:00 Completed [facility] HPV9 2020-04-06 00:00:00 Completed [facility] MMR 2020-04-06 00:00:00 Completed [facility] HPV9 2020-04-06 00:00:00 Completed [facility] MMR 2020-04-06 00:00:00 Completed [facility] HPV9 2020-04-06 00:00:00 Completed [facility] MMR 2020-04-06 00:00:00 Completed [facility] HPV9 2020-04-06 00:00:00 Completed [facility] MMR 2020-04-06 00:00:00 Completed [facility] HPV9 2020-04-06 00:00:00 Completed [facility] MMR 2020-04-06 00:00:00 Completed [facility] HPV9 2020-04-06 00:00:00 Completed [facility] MMR 2020-04-06 00:00:00 Completed [facility] HPV9 2020-04-06 00:00:00 Completed [facility] MMR 2020-04-06 00:00:00 Completed [facility] HPV9 2020-04-06 00:00:00 Completed [facility] MMR 2020-04-06 00:00:00 Completed [facility] HPV9 2020-04-06 00:00:00 Completed [facility] MMR 2020-04-06 00:00:00 Completed [facility] HPV9 2020-04-06 00:00:00 Completed [facility] MMR 2020-04-06 00:00:00 Completed [facility] TDAP 2020-01-31 00:00:00 Completed [facility] TDAP 2020-01-31 00:00:00 Completed [facility] TDAP 2020-01-31 00:00:00 Completed [facility] TDAP 2020-01-31 00:00:00 Completed [facility] TDAP 2020-01-31 00:00:00 Completed [facility] TDAP 2020-01-31 00:00:00 Completed [facility] TDAP 2020-01-31 00:00:00 Completed [facility] TDAP 2020-01-31 00:00:00 Completed [facility] TDAP 2020-01-31 00:00:00 Completed [facility] TDAP 2020-01-31 00:00:00 Completed [facility] TDAP 2020-01-31 00:00:00 Completed [facility] TDAP 2020-01-31 00:00:00 Completed [facility] TDAP 2020-01-31 00:00:00 Completed [facility] TDAP 2020-01-31 00:00:00 Completed [facility] TDAP 2020-01-31 00:00:00 Completed [facility] TDAP 2020-01-31 00:00:00 Completed [facility] TDAP 2020-01-31 00:00:00 Completed [facility] TDAP 2020-01-31 00:00:00 Completed [facility] TDAP 2020-01-31 00:00:00 Completed [facility] TDAP 2020-01-31 00:00:00 Completed [facility] TDAP 2020-01-31 00:00:00 Completed [facility] TDAP 2020-01-31 00:00:00 Completed [facility] TDAP 2020-01-31 00:00:00 Completed [facility] TDAP 2020-01-31 00:00:00 Completed [facility] TDAP 2020-01-31 00:00:00 Completed [facility] TDAP 2020-01-31 00:00:00 Completed [facility] TDAP 2020-01-31 00:00:00 Completed [facility] Influenza Virus Vaccine Quad .5 mL IM 6+ MO 2019-10-04 00:00:00 Completed [facility] Influenza Virus Vaccine Quad .5 mL IM 6+ MO 2019-10-04 00:00:00 Completed [facility] Influenza Virus Vaccine Quad .5 mL IM 6+ MO 2019-10-04 00:00:00 Completed [facility] Influenza Virus Vaccine Quad .5 mL IM 6+ MO 2019-10-04 00:00:00 Completed [facility] Influenza Virus Vaccine Quad .5 mL IM 6+ MO 2019-10-04 00:00:00 Completed [facility] Influenza Virus Vaccine Quad .5 mL IM 6+ MO 2019-10-04 00:00:00 Completed [facility] Influenza Virus Vaccine Quad .5 mL IM 6+ MO 2019-10-04 00:00:00 Completed [facility] Influenza Virus Vaccine Quad .5 mL IM 6+ MO 2019-10-04 00:00:00 Completed [facility] Influenza Virus Vaccine Quad .5 mL IM 6+ MO 2019-10-04 00:00:00 Completed [facility] Influenza Virus Vaccine Quad .5 mL IM 6+ MO 2019-10-04 00:00:00 Completed [facility] Influenza Virus Vaccine Quad .5 mL IM 6+ MO 2019-10-04 00:00:00 Completed [facility] Influenza Virus Vaccine Quad .5 mL IM 6+ MO 2019-10-04 00:00:00 Completed [facility] Influenza Virus Vaccine Quad .5 mL IM 6+ MO 2019-10-04 00:00:00 Completed [facility] Influenza Virus Vaccine Quad .5 mL IM 6+ MO 2019-10-04 00:00:00 Completed [facility] Influenza Virus Vaccine Quad .5 mL IM 6+ MO 2019-10-04 00:00:00 Completed [facility] Influenza Virus Vaccine Quad .5 mL IM 6+ MO 2019-10-04 00:00:00 Completed [facility] Influenza Virus Vaccine Quad .5 mL IM 6+ MO 2019-10-04 00:00:00 Completed [facility] Influenza Virus Vaccine Quad .5 mL IM 6+ MO 2019-10-04 00:00:00 Completed [facility] Influenza Virus Vaccine Quad .5 mL IM 6+ MO 2019-10-04 00:00:00 Completed [facility] Influenza Virus Vaccine Quad .5 mL IM 6+ MO 2019-10-04 00:00:00 Completed [facility] Influenza Virus Vaccine Quad .5 mL IM 6+ MO 2019-10-04 00:00:00 Completed [facility] Influenza Virus Vaccine Quad .5 mL IM 6+ MO 2019-10-04 00:00:00 Completed [facility] Influenza Virus Vaccine Quad .5 mL IM 6+ MO (FLUZONE/FLULAVAL/FL UARIX) 2019-10-04 00:00:00 Completed [facility] Influenza Virus Vaccine Quad .5 mL IM 6+ MO (FLUZONE/FLULAVAL/FL UARIX) 2019-10-04 00:00:00 Completed [facility] Influenza Virus Vaccine Quad .5 mL IM 6+ MO (FLUZONE/FLULAVAL/FL UARIX) 2019-10-04 00:00:00 Completed [facility] Influenza Virus Vaccine Quad .5 mL IM 6+ MO (FLUZONE/FLULAVAL/FL UARIX) 2019-10-04 00:00:00 Completed [facility] Influenza Virus Vaccine Quad .5 mL IM 6+ MO (FLUZONE/FLULAVAL/FL UARIX) 2019-10-04 00:00:00 Completed [facility] Meningococcal Polysaccharide (groups A, C, Y and W-135) conjugate vaccine (MCV4P) 2010-05-25 00:00:00 Completed [facility] Meningococcal Polysaccharide (groups A, C, Y and W-135) conjugate vaccine (MCV4P) 2010-05-25 00:00:00 Completed [facility] Meningococcal Polysaccharide (groups A, C, Y and W-135) conjugate vaccine (MCV4P) 2010-05-25 00:00:00 Completed [facility] Meningococcal Polysaccharide (groups A, C, Y and W-135) conjugate vaccine (MCV4P) 2010-05-25 00:00:00 Completed [facility] Meningococcal Polysaccharide (groups A, C, Y and W-135) conjugate vaccine (MCV4P) 2010-05-25 00:00:00 Completed [facility] Meningococcal Polysaccharide (groups A, C, Y and W-135) conjugate vaccine (MCV4P) 2010-05-25 00:00:00 Completed [facility] Meningococcal Polysaccharide (groups A, C, Y and W-135) conjugate vaccine (MCV4P) 2010-05-25 00:00:00 Completed [facility] Meningococcal Polysaccharide (groups A, C, Y and W-135) conjugate vaccine (MCV4P) 2010-05-25 00:00:00 Completed [facility] Meningococcal Polysaccharide (groups A, C, Y and W-135) conjugate vaccine (MCV4P) 2010-05-25 00:00:00 Completed [facility] Meningococcal Polysaccharide (groups A, C, Y and W-135) conjugate vaccine (MCV4P) 2010-05-25 00:00:00 Completed [facility] Meningococcal Polysaccharide (groups A, C, Y and W-135) conjugate vaccine (MCV4P) 2010-05-25 00:00:00 Completed [facility] Meningococcal Polysaccharide (groups A, C, Y and W-135) conjugate vaccine (MCV4P) 2010-05-25 00:00:00 Completed [facility] Meningococcal Polysaccharide (groups A, C, Y and W-135) conjugate vaccine (MCV4P) 2010-05-25 00:00:00 Completed [facility] Meningococcal Polysaccharide (groups A, C, Y and W-135) conjugate vaccine (MCV4P) 2010-05-25 00:00:00 Completed [facility] Meningococcal Polysaccharide (groups A, C, Y and W-135) conjugate vaccine (MCV4P) 2010-05-25 00:00:00 Completed [facility] Meningococcal Polysaccharide (groups A, C, Y and W-135) conjugate vaccine (MCV4P) 2010-05-25 00:00:00 Completed [facility] Meningococcal Polysaccharide (groups A, C, Y and W-135) conjugate vaccine (MCV4P) 2010-05-25 00:00:00 Completed [facility] Meningococcal Polysaccharide (groups A, C, Y and W-135) conjugate vaccine (MCV4P) 2010-05-25 00:00:00 Completed [facility] Meningococcal Polysaccharide (groups A, C, Y and W-135) conjugate vaccine (MCV4P) 2010-05-25 00:00:00 Completed [facility] Meningococcal Polysaccharide (groups A, C, Y and W-135) conjugate vaccine (MCV4P) 2010-05-25 00:00:00 Completed [facility] Meningococcal Polysaccharide (groups A, C, Y and W-135) conjugate vaccine (MCV4P) 2010-05-25 00:00:00 Completed [facility] Meningococcal Polysaccharide (groups A, C, Y and W-135) conjugate vaccine (MCV4P) 2010-05-25 00:00:00 Completed [facility] Meningococcal Polysaccharide (groups A, C, Y and W-135) conjugate vaccine (MCV4P) 2010-05-25 00:00:00 Completed [facility] Meningococcal Polysaccharide (groups A, C, Y and W-135) conjugate vaccine (MCV4P) 2010-05-25 00:00:00 Completed [facility] Meningococcal Polysaccharide (groups A, C, Y and W-135) conjugate vaccine (MCV4P) 2010-05-25 00:00:00 Completed [facility] Meningococcal Polysaccharide (groups A, C, Y and W-135) conjugate vaccine (MCV4P) 2010-05-25 00:00:00 Completed [facility] Meningococcal Polysaccharide (groups A, C, Y and W-135) conjugate vaccine (MCV4P) 2010-05-25 00:00:00 Completed [facility] Influenza Virus Vaccine Quad .5 mL IM 6+ MO (FLUZONE/FLULAVAL/FL UARIX) Unknown Completed [facility] TDAP Unknown Completed [facility] HPV9 Unknown Completed [facility] MMR Unknown Completed [facility] HPV9 Unknown Completed [facility] Influenza Virus Vaccine Quad .5 mL IM 6+ MO (FLUZONE/FLULAVAL/FL UARIX) Unknown Completed [facility] Meningococcal Polysaccharide (groups A, C, Y and W-135) conjugate vaccine (MCV4P) Unknown Completed [facility] HPV9 Unknown Completed [facility] Influenza Virus Vaccine Quad IM, Preserv and ABX Free 6 MO-64 YRS (FLUCELVAX) Unknown Completed [facility] SARS-COV-2 COVID-19 PFIZER VACCINE Unknown Completed [facility] SARS-COV-2 COVID-19 PFIZER VACCINE Unknown Completed [facility] Influenza Virus Vaccine Quad .5 mL IM 6+ MO (FLUZONE/FLULAVAL/FL UARIX) Unknown Completed [facility] TDAP Unknown Completed [facility] HPV9 Unknown Completed [facility] MMR Unknown Completed [facility] HPV9 Unknown Completed [facility] Influenza Virus Vaccine Quad .5 mL IM 6+ MO (FLUZONE/FLULAVAL/FL UARIX) Unknown Completed [facility] Meningococcal Polysaccharide (groups A, C, Y and W-135) conjugate vaccine (MCV4P) Unknown Completed [facility] HPV9 Unknown Completed [facility] Influenza Virus Vaccine Quad IM, Preserv and ABX Free 6 MO-64 YRS (FLUCELVAX) Unknown Completed [facility] SARS-COV-2 COVID-19 PFIZER VACCINE Unknown Completed [facility] SARS-COV-2 COVID-19 PFIZER VACCINE Unknown Completed [facility] Influenza Virus Vaccine Quad .5 mL IM 6+ MO (FLUZONE/FLULAVAL/FL UARIX) Unknown Completed [facility] TDAP Unknown Completed [facility] HPV9 Unknown Completed [facility] MMR Unknown Completed [facility] HPV9 Unknown Completed [facility] Influenza Virus Vaccine Quad .5 mL IM 6+ MO (FLUZONE/FLULAVAL/FL UARIX) Unknown Completed [facility] Meningococcal Polysaccharide (groups A, C, Y and W-135) conjugate vaccine (MCV4P) Unknown Completed [facility] HPV9 Unknown Completed [facility] Influenza Virus Vaccine Quad IM, Preserv and ABX Free 6 MO-64 YRS (FLUCELVAX) Unknown Completed [facility] SARS-COV-2 COVID-19 PFIZER VACCINE Unknown Completed [facility] SARS-COV-2 COVID-19 PFIZER VACCINE Unknown Completed [facility] Influenza Virus Vaccine Quad .5 mL IM 6+ MO (FLUZONE/FLULAVAL/FL UARIX) Unknown Completed [facility] TDAP Unknown Completed [facility] HPV9 Unknown Completed [facility] MMR Unknown Completed [facility] HPV9 Unknown Completed [facility] Influenza Virus Vaccine Quad .5 mL IM 6+ MO (FLUZONE/FLULAVAL/FL UARIX) Unknown Completed [facility] Meningococcal Polysaccharide (groups A, C, Y and W-135) conjugate vaccine (MCV4P) Unknown Completed [facility] HPV9 Unknown Completed [facility] Influenza Virus Vaccine Quad IM, Preserv and ABX Free 6 MO-64 YRS (FLUCELVAX) Unknown Completed [facility] SARS-COV-2 COVID-19 PFIZER VACCINE Unknown Completed [facility] SARS-COV-2 COVID-19 PFIZER VACCINE Unknown Completed [facility] Influenza Virus Vaccine Quad IM, Preserv and ABX Free 6 MO-64 YRS (FLUCELVAX) Unknown Completed [facility] Influenza Virus Vaccine Quad .5 mL IM 6+ MO (FLUZONE/FLULAVAL/FL UARIX) Unknown Completed [facility] TDAP Unknown Completed [facility] HPV9 Unknown Completed [facility] MMR Unknown Completed [facility] HPV9 Unknown Completed [facility] Influenza Virus Vaccine Quad .5 mL IM 6+ MO (FLUZONE/FLULAVAL/FL UARIX) Unknown Completed [facility] Meningococcal Polysaccharide (groups A, C, Y and W-135) conjugate vaccine (MCV4P) Unknown Completed [facility] HPV9 Unknown Completed [facility] Influenza Virus Vaccine Quad IM, Preserv and ABX Free 6 MO-64 YRS (FLUCELVAX) Unknown Completed [facility] SARS-COV-2 COVID-19 PFIZER VACCINE Unknown Completed [facility] SARS-COV-2 COVID-19 PFIZER VACCINE Unknown Completed [facility] Influenza Virus Vaccine Quad IM, Preserv and ABX Free 6 MO-64 YRS (FLUCELVAX) Unknown Completed [facility] Influenza Virus Vaccine Quad .5 mL IM 6+ MO (FLUZONE/FLULAVAL/FL UARIX) Unknown Completed [facility] TDAP Unknown Completed [facility] HPV9 Unknown Completed [facility] MMR Unknown Completed [facility] HPV9 Unknown Completed [facility] Influenza Virus Vaccine Quad .5 mL IM 6+ MO (FLUZONE/FLULAVAL/FL UARIX) Unknown Completed [facility] Meningococcal Polysaccharide (groups A, C, Y and W-135) conjugate vaccine (MCV4P) Unknown Completed [facility] HPV9 Unknown Completed [facility] Influenza Virus Vaccine Quad IM, Preserv and ABX Free 6 MO-64 YRS (FLUCELVAX) Unknown Completed [facility] SARS-COV-2 COVID-19 PFIZER VACCINE Unknown Completed [facility] SARS-COV-2 COVID-19 PFIZER VACCINE Unknown Completed [facility] Influenza Virus Vaccine Quad IM, Preserv and ABX Free 6 MO-64 YRS (FLUCELVAX) Unknown Completed [facility] Influenza Virus Vaccine Quad .5 mL IM 6+ MO (FLUZONE/FLULAVAL/FL UARIX) Unknown Completed [facility] TDAP Unknown Completed [facility] HPV9 Unknown Completed [facility] MMR Unknown Completed [facility] HPV9 Unknown Completed [facility] Influenza Virus Vaccine Quad .5 mL IM 6+ MO (FLUZONE/FLULAVAL/FL UARIX) Unknown Completed [facility] Meningococcal Polysaccharide (groups A, C, Y and W-135) conjugate vaccine (MCV4P) Unknown Completed [facility] HPV9 Unknown Completed [facility] Influenza Virus Vaccine Quad IM, Preserv and ABX Free 6 MO-64 YRS (FLUCELVAX) Unknown Completed [facility] SARS-COV-2 COVID-19 PFIZER VACCINE Unknown Completed [facility] SARS-COV-2 COVID-19 PFIZER VACCINE Unknown Completed [facility] Influenza Virus Vaccine Quad IM, Preserv and ABX Free 6 MO-64 YRS (FLUCELVAX) Unknown Completed [facility] Influenza Virus Vaccine Quad .5 mL IM 6+ MO (FLUZONE/FLULAVAL/FL UARIX) Unknown Completed [facility] TDAP Unknown Completed [facility] HPV9 Unknown Completed [facility] MMR Unknown Completed [facility] HPV9 Unknown Completed [facility] Influenza Virus Vaccine Quad .5 mL IM 6+ MO (FLUZONE/FLULAVAL/FL UARIX) Unknown Completed [facility] Meningococcal Polysaccharide (groups A, C, Y and W-135) conjugate vaccine (MCV4P) Unknown Completed [facility] HPV9 Unknown Completed [facility] Influenza Virus Vaccine Quad IM, Preserv and ABX Free 6 MO-64 YRS (FLUCELVAX) Unknown Completed [facility] SARS-COV-2 COVID-19 PFIZER VACCINE Unknown Completed [facility] SARS-COV-2 COVID-19 PFIZER VACCINE Unknown Completed [facility] Influenza Virus Vaccine Quad IM, Preserv and ABX Free 6 MO-64 YRS (FLUCELVAX) Unknown Completed [facility] TDAP Unknown Completed [facility] Influenza Virus Vaccine Quad .5 mL IM 6+ MO (FLUZONE/FLULAVAL/FL UARIX) Unknown Completed [facility] TDAP Unknown Completed [facility] HPV9 Unknown Completed [facility] MMR Unknown Completed [facility] HPV9 Unknown Completed [facility] Influenza Virus Vaccine Quad .5 mL IM 6+ MO (FLUZONE/FLULAVAL/FL UARIX) Unknown Completed [facility] Meningococcal Polysaccharide (groups A, C, Y and W-135) conjugate vaccine (MCV4P) Unknown Completed [facility] HPV9 Unknown Completed [facility] Influenza Virus Vaccine Quad IM, Preserv and ABX Free 6 MO-64 YRS (FLUCELVAX) Unknown Completed [facility] SARS-COV-2 COVID-19 PFIZER VACCINE Unknown Completed [facility] SARS-COV-2 COVID-19 PFIZER VACCINE Unknown Completed [facility] Influenza Virus Vaccine Quad IM, Preserv and ABX Free 6 MO-64 YRS (FLUCELVAX) Unknown Completed [facility] TDAP Unknown Completed [facility] Influenza Virus Vaccine Quad .5 mL IM 6+ MO (FLUZONE/FLULAVAL/FL UARIX) Unknown Completed [facility] TDAP Unknown Completed [facility] HPV9 Unknown Completed [facility] MMR Unknown Completed [facility] HPV9 Unknown Completed [facility] Influenza Virus Vaccine Quad .5 mL IM 6+ MO (FLUZONE/FLULAVAL/FL UARIX) Unknown Completed [facility] Meningococcal Polysaccharide (groups A, C, Y and W-135) conjugate vaccine (MCV4P) Unknown Completed [facility] HPV9 Unknown Completed [facility] Influenza Virus Vaccine Quad IM, Preserv and ABX Free 6 MO-64 YRS (FLUCELVAX) Unknown Completed [facility] SARS-COV-2 COVID-19 PFIZER VACCINE Unknown Completed [facility] SARS-COV-2 COVID-19 PFIZER VACCINE Unknown Completed [facility] Influenza Virus Vaccine Quad IM, Preserv and ABX Free 6 MO-64 YRS (FLUCELVAX) Unknown Completed [facility] TDAP Unknown Completed [facility] Influenza Virus Vaccine Quad .5 mL IM 6+ MO (FLUZONE/FLULAVAL/FL UARIX) Unknown Completed [facility] TDAP Unknown Completed [facility] HPV9 Unknown Completed [facility] MMR Unknown Completed [facility] HPV9 Unknown Completed [facility] Influenza Virus Vaccine Quad .5 mL IM 6+ MO (FLUZONE/FLULAVAL/FL UARIX) Unknown Completed [facility] Meningococcal Polysaccharide (groups A, C, Y and W-135) conjugate vaccine (MCV4P) Unknown Completed [facility] HPV9 Unknown Completed [facility] Influenza Virus Vaccine Quad IM, Preserv and ABX Free 6 MO-64 YRS (FLUCELVAX) Unknown Completed [facility] SARS-COV-2 COVID-19 PFIZER VACCINE Unknown Completed [facility] SARS-COV-2 COVID-19 PFIZER VACCINE Unknown Completed [facility] Influenza Virus Vaccine Quad IM, Preserv and ABX Free 6 MO-64 YRS (FLUCELVAX) Unknown Completed [facility] TDAP Unknown Completed [facility] Influenza Virus Vaccine Quad .5 mL IM 6+ MO (FLUZONE/FLULAVAL/FL UARIX) Unknown Completed [facility] TDAP Unknown Completed [facility] HPV9 Unknown Completed [facility] MMR Unknown Completed [facility] HPV9 Unknown Completed [facility] Influenza Virus Vaccine Quad .5 mL IM 6+ MO (FLUZONE/FLULAVAL/FL UARIX) Unknown Completed [facility] Meningococcal Polysaccharide (groups A, C, Y and W-135) conjugate vaccine (MCV4P) Unknown Completed [facility] HPV9 Unknown Completed [facility] Influenza Virus Vaccine Quad IM, Preserv and ABX Free 6 MO-64 YRS (FLUCELVAX) Unknown Completed [facility] SARS-COV-2 COVID-19 PFIZER VACCINE Unknown Completed [facility] SARS-COV-2 COVID-19 PFIZER VACCINE Unknown Completed [facility] Influenza Virus Vaccine Quad IM, Preserv and ABX Free 6 MO-64 YRS (FLUCELVAX) Unknown Completed [facility] TDAP Unknown Completed [facility] Influenza Virus Vaccine Quad .5 mL IM 6+ MO (FLUZONE/FLULAVAL/FL UARIX) Unknown Completed [facility] TDAP Unknown Completed [facility] HPV9 Unknown Completed [facility] MMR Unknown Completed [facility] HPV9 Unknown Completed [facility] Influenza Virus Vaccine Quad .5 mL IM 6+ MO (FLUZONE/FLULAVAL/FL UARIX) Unknown Completed [facility] Meningococcal Polysaccharide (groups A, C, Y and W-135) conjugate vaccine (MCV4P) Unknown Completed [facility] HPV9 Unknown Completed [facility] Influenza Virus Vaccine Quad IM, Preserv and ABX Free 6 MO-64 YRS (FLUCELVAX) Unknown Completed [facility] SARS-COV-2 COVID-19 PFIZER VACCINE Unknown Completed [facility] SARS-COV-2 COVID-19 PFIZER VACCINE Unknown Completed [facility] Influenza Virus Vaccine Quad IM, Preserv and ABX Free 6 MO-64 YRS (FLUCELVAX) Unknown Completed [facility] TDAP Unknown Completed [facility] Influenza Virus Vaccine Quad .5 mL IM 6+ MO (FLUZONE/FLULAVAL/FL UARIX) Unknown Completed [facility] TDAP Unknown Completed [facility] HPV9 Unknown Completed [facility] MMR Unknown Completed [facility] HPV9 Unknown Completed [facility] Influenza Virus Vaccine Quad .5 mL IM 6+ MO (FLUZONE/FLULAVAL/FL UARIX) Unknown Completed [facility] Meningococcal Polysaccharide (groups A, C, Y and W-135) conjugate vaccine (MCV4P) Unknown Completed [facility] HPV9 Unknown Completed [facility] Influenza Virus Vaccine Quad IM, Preserv and ABX Free 6 MO-64 YRS (FLUCELVAX) Unknown Completed [facility] SARS-COV-2 COVID-19 PFIZER VACCINE Unknown Completed [facility] SARS-COV-2 COVID-19 PFIZER VACCINE Unknown Completed [facility] Influenza Virus Vaccine Quad IM, Preserv and ABX Free 6 MO-64 YRS (FLUCELVAX) Unknown Completed [facility] TDAP Unknown Completed [facility] Influenza Virus Vaccine Quad .5 mL IM 6+ MO (FLUZONE/FLULAVAL/FL UARIX) Unknown Completed [facility] TDAP Unknown Completed [facility] HPV9 Unknown Completed [facility] MMR Unknown Completed [facility] HPV9 Unknown Completed [facility] Influenza Virus Vaccine Quad .5 mL IM 6+ MO (FLUZONE/FLULAVAL/FL UARIX) Unknown Completed [facility] Meningococcal Polysaccharide (groups A, C, Y and W-135) conjugate vaccine (MCV4P) Unknown Completed [facility] HPV9 Unknown Completed [facility] Influenza Virus Vaccine Quad IM, Preserv and ABX Free 6 MO-64 YRS (FLUCELVAX) Unknown Completed [facility] SARS-COV-2 COVID-19 PFIZER VACCINE Unknown Completed [facility] SARS-COV-2 COVID-19 PFIZER VACCINE Unknown Completed [facility] Influenza Virus Vaccine Quad IM, Preserv and ABX Free 6 MO-64 YRS (FLUCELVAX) Unknown Completed [facility] TDAP Unknown Completed [facility] Influenza Virus Vaccine Quad .5 mL IM 6+ MO (FLUZONE/FLULAVAL/FL UARIX) Unknown Completed [facility] TDAP Unknown Completed [facility] HPV9 Unknown Completed [facility] MMR Unknown Completed [facility] HPV9 Unknown Completed [facility] Influenza Virus Vaccine Quad .5 mL IM 6+ MO (FLUZONE/FLULAVAL/FL UARIX) Unknown Completed [facility] Meningococcal Polysaccharide (groups A, C, Y and W-135) conjugate vaccine (MCV4P) Unknown Completed [facility] HPV9 Unknown Completed [facility] Influenza Virus Vaccine Quad IM, Preserv and ABX Free 6 MO-64 YRS (FLUCELVAX) Unknown Completed [facility] SARS-COV-2 COVID-19 PFIZER VACCINE Unknown Completed [facility] SARS-COV-2 COVID-19 PFIZER VACCINE Unknown Completed [facility] Influenza Virus Vaccine Quad IM, Preserv and ABX Free 6 MO-64 YRS (FLUCELVAX) Unknown Completed [facility] TDAP Unknown Completed [facility] Influenza Virus Vaccine Quad .5 mL IM 6+ MO (FLUZONE/FLULAVAL/FL UARIX) Unknown Completed [facility] TDAP Unknown Completed [facility] HPV9 Unknown Completed [facility] MMR Unknown Completed [facility] HPV9 Unknown Completed [facility] Influenza Virus Vaccine Quad .5 mL IM 6+ MO (FLUZONE/FLULAVAL/FL UARIX) Unknown Completed [facility] Meningococcal Polysaccharide (groups A, C, Y and W-135) conjugate vaccine (MCV4P) Unknown Completed [facility] HPV9 Unknown Completed [facility] Influenza Virus Vaccine Quad IM, Preserv and ABX Free 6 MO-64 YRS (FLUCELVAX) Unknown Completed [facility] SARS-COV-2 COVID-19 PFIZER VACCINE Unknown Completed [facility] SARS-COV-2 COVID-19 PFIZER VACCINE Unknown Completed [facility] Influenza Virus Vaccine Quad IM, Preserv and ABX Free 6 MO-64 YRS (FLUCELVAX) Unknown Completed [facility] TDAP Unknown Completed [facility] Influenza Virus Vaccine Quad .5 mL IM 6+ MO (FLUZONE/FLULAVAL/FL UARIX) Unknown Completed [facility] TDAP Unknown Completed [facility] HPV9 Unknown Completed [facility] MMR Unknown Completed [facility] HPV9 Unknown Completed [facility] Influenza Virus Vaccine Quad .5 mL IM 6+ MO (FLUZONE/FLULAVAL/FL UARIX) Unknown Completed [facility] Meningococcal Polysaccharide (groups A, C, Y and W-135) conjugate vaccine (MCV4P) Unknown Completed [facility] HPV9 Unknown Completed [facility] Influenza Virus Vaccine Quad IM, Preserv and ABX Free 6 MO-64 YRS (FLUCELVAX) Unknown Completed [facility] SARS-COV-2 COVID-19 PFIZER VACCINE Unknown Completed [facility] SARS-COV-2 COVID-19 PFIZER VACCINE Unknown Completed [facility] Influenza Virus Vaccine Quad IM, Preserv and ABX Free 6 MO-64 YRS (FLUCELVAX) Unknown Completed [facility] TDAP Unknown Completed [facility] Influenza Virus Vaccine Quad .5 mL IM 6+ MO (FLUZONE/FLULAVAL/FL UARIX) Unknown Completed [facility] TDAP Unknown Completed [facility] HPV9 Unknown Completed [facility] MMR Unknown Completed [facility] HPV9 Unknown Completed [facility] Influenza Virus Vaccine Quad .5 mL IM 6+ MO (FLUZONE/FLULAVAL/FL UARIX) Unknown Completed [facility] Meningococcal Polysaccharide (groups A, C, Y and W-135) conjugate vaccine (MCV4P) Unknown Completed [facility] HPV9 Unknown Completed [facility] Influenza Virus Vaccine Quad IM, Preserv and ABX Free 6 MO-64 YRS (FLUCELVAX) Unknown Completed [facility] SARS-COV-2 COVID-19 PFIZER VACCINE Unknown Completed [facility] SARS-COV-2 COVID-19 PFIZER VACCINE Unknown Completed [facility] Influenza Virus Vaccine Quad IM, Preserv and ABX Free 6 MO-64 YRS (FLUCELVAX) Unknown Completed [facility] TDAP Unknown Completed [facility] Influenza Virus Vaccine Quad .5 mL IM 6+ MO (FLUZONE/FLULAVAL/FL UARIX) Unknown Completed [facility] TDAP Unknown Completed [facility] HPV9 Unknown Completed [facility] MMR Unknown Completed [facility] HPV9 Unknown Completed [facility] Influenza Virus Vaccine Quad .5 mL IM 6+ MO (FLUZONE/FLULAVAL/FL UARIX) Unknown Completed [facility] Meningococcal Polysaccharide (groups A, C, Y and W-135) conjugate vaccine (MCV4P) Unknown Completed [facility] HPV9 Unknown Completed [facility] Influenza Virus Vaccine Quad IM, Preserv and ABX Free 6 MO-64 YRS (FLUCELVAX) Unknown Completed [facility] SARS-COV-2 COVID-19 PFIZER VACCINE Unknown Completed [facility] SARS-COV-2 COVID-19 PFIZER VACCINE Unknown Completed [facility] Influenza Virus Vaccine Quad IM, Preserv and ABX Free 6 MO-64 YRS (FLUCELVAX) Unknown Completed [facility] TDAP Unknown Completed [facility] Influenza Virus Vaccine Quad .5 mL IM 6+ MO (FLUZONE/FLULAVAL/FL UARIX) Unknown Completed [facility] TDAP Unknown Completed [facility] HPV9 Unknown Completed [facility] MMR Unknown Completed [facility] HPV9 Unknown Completed [facility] Influenza Virus Vaccine Quad .5 mL IM 6+ MO (FLUZONE/FLULAVAL/FL UARIX) Unknown Completed [facility] Meningococcal Polysaccharide (groups A, C, Y and W-135) conjugate vaccine (MCV4P) Unknown Completed [facility] HPV9 Unknown Completed [facility] Influenza Virus Vaccine Quad IM, Preserv and ABX Free 6 MO-64 YRS (FLUCELVAX) Unknown Completed [facility] SARS-COV-2 COVID-19 PFIZER VACCINE Unknown Completed [facility] SARS-COV-2 COVID-19 PFIZER VACCINE Unknown Completed [facility] Influenza Virus Vaccine Quad IM, Preserv and ABX Free 6 MO-64 YRS (FLUCELVAX) Unknown Completed [facility] TDAP Unknown Completed [facility] Influenza Virus Vaccine Quad .5 mL IM 6+ MO (FLUZONE/FLULAVAL/FL UARIX) Unknown Completed [facility] TDAP Unknown Completed [facility] HPV9 Unknown Completed [facility] MMR Unknown Completed [facility] HPV9 Unknown Completed [facility] Influenza Virus Vaccine Quad .5 mL IM 6+ MO (FLUZONE/FLULAVAL/FL UARIX) Unknown Completed [facility] Meningococcal Polysaccharide (groups A, C, Y and W-135) conjugate vaccine (MCV4P) Unknown Completed [facility] HPV9 Unknown Completed [facility] Influenza Virus Vaccine Quad IM, Preserv and ABX Free 6 MO-64 YRS (FLUCELVAX) Unknown Completed [facility] SARS-COV-2 COVID-19 PFIZER VACCINE Unknown Completed [facility] SARS-COV-2 COVID-19 PFIZER VACCINE Unknown Completed [facility] Influenza Virus Vaccine Quad IM, Preserv and ABX Free 6 MO-64 YRS (FLUCELVAX) Unknown Completed [facility] TDAP Unknown Completed [facility] Influenza Virus Vaccine Quad .5 mL IM 6+ MO (FLUZONE/FLULAVAL/FL UARIX) Unknown Completed [facility] TDAP Unknown Completed [facility] HPV9 Unknown Completed [facility] MMR Unknown Completed [facility] HPV9 Unknown Completed [facility] Influenza Virus Vaccine Quad .5 mL IM 6+ MO (FLUZONE/FLULAVAL/FL UARIX) Unknown Completed [facility] Meningococcal Polysaccharide (groups A, C, Y and W-135) conjugate vaccine (MCV4P) Unknown Completed [facility] HPV9 Unknown Completed [facility] Influenza Virus Vaccine Quad IM, Preserv and ABX Free 6 MO-64 YRS (FLUCELVAX) Unknown Completed [facility] SARS-COV-2 COVID-19 PFIZER VACCINE Unknown Completed [facility] SARS-COV-2 COVID-19 PFIZER VACCINE Unknown Completed [facility] Influenza Virus Vaccine Quad IM, Preserv and ABX Free 6 MO-64 YRS (FLUCELVAX) Unknown Completed [facility] TDAP Unknown Completed [facility] Influenza Virus Vaccine Quad .5 mL IM 6+ MO (FLUZONE/FLULAVAL/FL UARIX) Unknown Completed [facility] TDAP Unknown Completed [facility] HPV9 Unknown Completed [facility] MMR Unknown Completed [facility] HPV9 Unknown Completed [facility] Influenza Virus Vaccine Quad .5 mL IM 6+ MO (FLUZONE/FLULAVAL/FL UARIX) Unknown Completed [facility] Meningococcal Polysaccharide (groups A, C, Y and W-135) conjugate vaccine (MCV4P) Unknown Completed [facility] HPV9 Unknown Completed [facility] Influenza Virus Vaccine Quad IM, Preserv and ABX Free 6 MO-64 YRS (FLUCELVAX) Unknown Completed [facility] SARS-COV-2 COVID-19 PFIZER VACCINE Unknown Completed [facility] SARS-COV-2 COVID-19 PFIZER VACCINE Unknown Completed [facility] Influenza Virus Vaccine Quad IM, Preserv and ABX Free 6 MO-64 YRS (FLUCELVAX) Unknown Completed [facility] TDAP Unknown Completed [facility] Influenza Virus Vaccine Quad .5 mL IM 6+ MO (FLUZONE/FLULAVAL/FL UARIX) Unknown Completed [facility] TDAP Unknown Completed [facility] HPV9 Unknown Completed [facility] MMR Unknown Completed [facility] HPV9 Unknown Completed [facility] Influenza Virus Vaccine Quad .5 mL IM 6+ MO (FLUZONE/FLULAVAL/FL UARIX) Unknown Completed [facility] Meningococcal Polysaccharide (groups A, C, Y and W-135) conjugate vaccine (MCV4P) Unknown Completed [facility] HPV9 Unknown Completed [facility] Influenza Virus Vaccine Quad IM, Preserv and ABX Free 6 MO-64 YRS (FLUCELVAX) Unknown Completed [facility] SARS-COV-2 COVID-19 PFIZER VACCINE Unknown Completed [facility] SARS-COV-2 COVID-19 PFIZER VACCINE Unknown Completed [facility] Influenza Virus Vaccine Quad IM, Preserv and ABX Free 6 MO-64 YRS (FLUCELVAX) Unknown Completed [facility] TDAP Unknown Completed [facility] Influenza Virus Vaccine Quad .5 mL IM 6+ MO (FLUZONE/FLULAVAL/FL UARIX) Unknown Completed [facility] TDAP Unknown Completed [facility] HPV9 Unknown Completed [facility] MMR Unknown Completed [facility] HPV9 Unknown Completed [facility] Influenza Virus Vaccine Quad .5 mL IM 6+ MO (FLUZONE/FLULAVAL/FL UARIX) Unknown Completed [facility] Meningococcal Polysaccharide (groups A, C, Y and W-135) conjugate vaccine (MCV4P) Unknown Completed [facility] HPV9 Unknown Completed [facility] Influenza Virus Vaccine Quad IM, Preserv and ABX Free 6 MO-64 YRS (FLUCELVAX) Unknown Completed [facility] SARS-COV-2 COVID-19 PFIZER VACCINE Unknown Completed [facility] SARS-COV-2 COVID-19 PFIZER VACCINE Unknown Completed [facility] Influenza Virus Vaccine Quad IM, Preserv and ABX Free 6 MO-64 YRS (FLUCELVAX) Unknown Completed [facility] TDAP Unknown Completed [facility] Influenza Virus Vaccine Quad .5 mL IM 6+ MO (FLUZONE/FLULAVAL/FL UARIX) Unknown Completed [facility] TDAP Unknown Completed [facility] HPV9 Unknown Completed [facility] MMR Unknown Completed [facility] HPV9 Unknown Completed [facility] Influenza Virus Vaccine Quad .5 mL IM 6+ MO (FLUZONE/FLULAVAL/FL UARIX) Unknown Completed [facility] Meningococcal Polysaccharide (groups A, C, Y and W-135) conjugate vaccine (MCV4P) Unknown Completed [facility] HPV9 Unknown Completed [facility] Influenza Virus Vaccine Quad IM, Preserv and ABX Free 6 MO-64 YRS (FLUCELVAX) Unknown Completed [facility] SARS-COV-2 COVID-19 PFIZER VACCINE Unknown Completed [facility] SARS-COV-2 COVID-19 PFIZER VACCINE Unknown Completed [facility] Influenza Virus Vaccine Quad IM, Preserv and ABX Free 6 MO-64 YRS (FLUCELVAX) Unknown Completed [facility] TDAP Unknown Completed [facility] Vital Signs Vital Name Observation Time Observation Value Comments S ource Systolic blood pressure 2023-12-19 15:48:00 112 mm[Hg] [facility] Diastolic blood pressure 2023-12-19 15:48:00 65 mm[Hg] [facility] Heart rate 2023-12-19 15:48:00 87 /min [facility] Body temperature 2023-12-19 15:48:00 36.56 Janneth [facility] Respiratory rate 2023-12-19 15:48:00 17 /min [facility] Body height 2023-12-19 15:48:00 170.2 cm [facility] Body weight 2023-12-19 15:48:00 72.621 kg [facility] BMI 2023-12-19 15:48:00 25.08 kg/m2 [facility] Systolic blood pressure 2023-11-20 16:25:00 110 mm[Hg] [facility] Diastolic blood pressure 2023-11-20 16:25:00 71 mm[Hg] [facility] Heart rate 2023-11-20 16:25:00 65 /min [facility] Body temperature 2023-11-20 16:25:00 36.11 Janneth [facility] Respiratory rate 2023-11-20 16:25:00 19 /min [facility] Body height 2023-11-20 16:25:00 170.2 cm [facility] Body weight 2023-11-20 16:25:00 72.031 kg [facility] BMI 2023-11-20 16:25:00 24.87 kg/m2 [facility] Systolic blood pressure 2023-10-25 13:50:00 100 mm[Hg] [facility] Diastolic blood pressure 2023-10-25 13:50:00 71 mm[Hg] [facility] Heart rate 2023-10-25 13:50:00 67 /min [facility] Body temperature 2023-10-25 13:50:00 36.61 Janneth [facility] Respiratory rate 2023-10-25 13:50:00 18 /min [facility] Oxygen saturation in Arterial blood by Pulse oximetry 2023-10-25 13:50:00 97 /min [facility] Body height 2023-10-22 19:08:00 170.2 cm [facility] Body weight 2023-10-22 19:08:00 79.924 kg [facility] BMI 2023-10-22 19:08:00 27.60 kg/m2 [facility] Systolic blood pressure 2023-10-23 15:15:00 107 mm[Hg] [facility] Diastolic blood pressure 2023-10-23 15:15:00 69 mm[Hg] [facility] Heart rate 2023-10-23 15:15:00 57 /min [facility] Respiratory rate 2023-10-23 15:15:00 19 /min [facility] Oxygen saturation in Arterial blood by Pulse oximetry 2023-10-23 15:15:00 97 /min [facility] Body temperature 2023-10-23 15:00:00 36.5 Janneth [facility] Body height 2023-10-22 19:08:00 170.2 cm [facility] Body weight 2023-10-22 19:08:00 79.924 kg [facility] BMI 2023-10-22 19:08:00 27.60 kg/m2 [facility] Systolic blood pressure 2023-10-19 18:53:00 120 mm[Hg] [facility] Diastolic blood pressure 2023-10-19 18:53:00 70 mm[Hg] [facility] Heart rate 2023-10-19 18:53:00 88 /min [facility] Body temperature 2023-10-19 18:53:00 35.83 Janneth [facility] Respiratory rate 2023-10-19 18:53:00 18 /min [facility] Body height 2023-10-19 18:53:00 170.2 cm [facility] Body weight 2023-10-19 18:53:00 79.946 kg [facility] BMI 2023-10-19 18:53:00 27.60 kg/m2 [facility] Systolic blood pressure 2023-10-12 21:29:00 131 mm[Hg] [facility] Diastolic blood pressure 2023-10-12 21:29:00 68 mm[Hg] [facility] Heart rate 2023-10-12 21:29:00 100 /min [facility] Body temperature 2023-10-12 21:29:00 36.11 Janneth [facility] Respiratory rate 2023-10-12 21:29:00 18 /min [facility] Body height 2023-10-12 21:29:00 170.2 cm [facility] Body weight 2023-10-12 21:29:00 79.436 kg [facility] BMI 2023-10-12 21:29:00 27.43 kg/m2 [facility] Systolic blood pressure 2023-10-03 17:08:00 139 mm[Hg] [facility] Diastolic blood pressure 2023-10-03 17:08:00 64 mm[Hg] [facility] Heart rate 2023-10-03 17:08:00 84 /min [facility] Body temperature 2023-10-03 17:08:00 36.11 Janneth [facility] Respiratory rate 2023-10-03 17:08:00 18 /min [facility] Body height 2023-10-03 17:08:00 170.2 cm [facility] Body weight 2023-10-03 17:08:00 77.735 kg [facility] BMI 2023-10-03 17:08:00 26.84 kg/m2 [facility] Systolic blood pressure 2023-09-28 17:19:00 102 mm[Hg] [facility] Diastolic blood pressure 2023-09-28 17:19:00 65 mm[Hg] [facility] Heart rate 2023-09-28 17:19:00 85 /min [facility] Body temperature 2023-09-28 17:19:00 36.39 Janneth [facility] Respiratory rate 2023-09-28 17:19:00 18 /min [facility] Body weight 2023-09-28 17:19:00 78.654 kg [facility] BMI 2023-09-28 17:19:00 27.16 kg/m2 [facility] Systolic blood pressure 2023-09-15 14:55:00 127 mm[Hg] [facility] Diastolic blood pressure 2023-09-15 14:55:00 74 mm[Hg] [facility] Heart rate 2023-09-15 14:55:00 89 /min [facility] Body temperature 2023-09-15 14:55:00 36.33 Janneth [facility] Respiratory rate 2023-09-15 14:55:00 18 /min [facility] Body height 2023-09-15 14:55:00 170.2 cm [facility] Body weight 2023-09-15 14:55:00 78.382 kg [facility] BMI 2023-09-15 14:55:00 27.06 kg/m2 [facility] Systolic blood pressure 2023-08-29 22:17:00 128 mm[Hg] [facility] Diastolic blood pressure 2023-08-29 22:17:00 76 mm[Hg] [facility] Heart rate 2023-08-29 22:17:00 88 /min [facility] Body temperature 2023-08-29 22:17:00 36.28 Janneth [facility] Respiratory rate 2023-08-29 22:17:00 18 /min [facility] Body height 2023-08-29 22:17:00 170.2 cm [facility] Body weight 2023-08-29 22:17:00 78.586 kg [facility] BMI 2023-08-29 22:17:00 27.13 kg/m2 [facility] Systolic blood pressure 2023-08-15 21:14:00 122 mm[Hg] [facility] Diastolic blood pressure 2023-08-15 21:14:00 66 mm[Hg] [facility] Heart rate 2023-08-15 21:14:00 93 /min [facility] Body temperature 2023-08-15 21:14:00 36.22 Janneth [facility] Respiratory rate 2023-08-15 21:14:00 18 /min [facility] Body height 2023-08-15 21:14:00 170.2 cm [facility] Body weight 2023-08-15 21:14:00 77.31 kg [facility] BMI 2023-08-15 21:14:00 26.69 kg/m2 [facility] Systolic blood pressure 2023-07-27 14:50:00 112 mm[Hg] [facility] Diastolic blood pressure 2023-07-27 14:50:00 68 mm[Hg] [facility] Heart rate 2023-07-27 14:50:00 92 /min [facility] Body temperature 2023-07-27 14:50:00 36.72 Janneth [facility] Respiratory rate 2023-07-27 14:50:00 18 /min [facility] Body height 2023-07-27 14:50:00 170.2 cm [facility] Body weight 2023-07-27 14:50:00 75.751 kg [facility] BMI 2023-07-27 14:50:00 26.16 kg/m2 [facility] Systolic blood pressure 2023-07-13 13:15:00 104 mm[Hg] [place] [facility] Diastolic blood pressure 2023-07-13 13:15:00 69 mm[Hg] [facility] Heart rate 2023-07-13 13:15:00 80 /min [facility] Body temperature 2023-07-13 13:15:00 36.67 Janneth [facility] Respiratory rate 2023-07-13 13:15:00 18 /min [facility] Body height 2023-07-13 13:15:00 170.2 cm [facility] Body weight 2023-07-13 13:15:00 74.532 kg [facility] BMI 2023-07-13 13:15:00 25.73 kg/m2 [facility] Systolic blood pressure 2023-06-26 15:03:00 118 mm[Hg] [facility] Diastolic blood pressure 2023-06-26 15:03:00 71 mm[Hg] [facility] Heart rate 2023-06-26 15:03:00 92 /min [facility] Body temperature 2023-06-26 15:03:00 36.17 Janneth [facility] Respiratory rate 2023-06-26 15:03:00 18 /min [facility] Body height 2023-06-26 15:03:00 170.2 cm [facility] Body weight 2023-06-26 15:03:00 72.802 kg [facility] BMI 2023-06-26 15:03:00 25.14 kg/m2 [facility] Systolic blood pressure 2023-06-15 17:55:00 101 mm[Hg] [facility] Diastolic blood pressure 2023-06-15 17:55:00 64 mm[Hg] [facility] Heart rate 2023-06-15 17:55:00 98 /min [facility] Body temperature 2023-06-15 17:55:00 36.06 Janneth [facility] Respiratory rate 2023-06-15 17:55:00 18 /min [facility] Body height 2023-06-15 17:55:00 170.2 cm [facility] Body weight 2023-06-15 17:55:00 72.848 kg [facility] BMI 2023-06-15 17:55:00 25.15 kg/m2 [facility] Systolic blood pressure 2023-05-18 18:21:00 112 mm[Hg] [facility] Diastolic blood pressure 2023-05-18 18:21:00 67 mm[Hg] [facility] Heart rate 2023-05-18 18:21:00 89 /min Un[facility] Body temperature 2023-05-18 18:21:00 36.5 Janneth [facility] Respiratory rate 2023-05-18 18:21:00 17 /min [facility] Body height 2023-05-18 18:21:00 170.2 cm [facility] Body weight 2023-05-18 18:21:00 69.536 kg [facility] BMI 2023-05-18 18:21:00 24.01 kg/m2 [facility] Systolic blood pressure 2023-05-05 13:38:00 113 mm[Hg] [facility] Diastolic blood pressure 2023-05-05 13:38:00 73 mm[Hg] [facility] Heart rate 2023-05-05 13:38:00 90 /min Un[facility] Body temperature 2023-05-05 13:38:00 36.33 Janneth [facility] Respiratory rate 2023-05-05 13:38:00 18 /min [facility] Body height 2023-05-05 13:38:00 170.2 cm [facility] Body weight 2023-05-05 13:38:00 68.72 kg [facility] BMI 2023-05-05 13:38:00 23.73 kg/m2 [facility] Systolic blood pressure 2023-03-30 20:08:00 116 mm[Hg] [facility] Diastolic blood pressure 2023-03-30 20:08:00 80 mm[Hg] [facility] Heart rate 2023-03-30 20:08:00 93 /min Un[facility] Body temperature 2023-03-30 20:08:00 36.28 Janneth [facility] Respiratory rate 2023-03-30 20:08:00 18 /min [facility] Body height 2023-03-30 20:08:00 170.2 cm [facility] 2023-03-30 20:08:00 67.302 kg [facility] BMI 2023-03-30 20:08:00 23.24 kg/m2 [facility] Systolic blood pressure 2023-02-28 19:25:00 118 mm[Hg] [facility] Diastolic blood pressure 2023-02-28 19:25:00 80 mm[Hg] [facility] BMI 2023-02-28 19:24:00 23.83 kg/m2 [facility] Heart [facility] 2023-02-28 19:24:00 87 /min Un[facility] Body temperature 2023-02-28 19:24:00 36.33 Janneth [facility] Respiratory rate 2023-02-28 19:24:00 18 /min [facility] Body height 2023-02-28 19:24:00 170.2 cm [facility] Body weight 2023-02-28 19:24:00 69.003 kg [facility] Systolic blood pressure 2022-10-11 19:54:00 120 mm[Hg] [facility] Diastolic blood pressure 2022-10-11 19:54:00 83 mm[Hg] [facility] Heart rate 2022-10-11 19:54:00 79 /min Un[facility] Body temperature 2022-10-11 19:54:00 36.5 Janneth [facility] Respiratory rate 2022-10-11 19:54:00 18 /min [facility] Body height 2022-10-11 19:54:00 170.2 cm [facility] Body weight 2022-10-11 19:54:00 68.663 kg [facility] BMI 2022-10-11 19:54:00 23.71 kg/m2 [facility] Systolic blood pressure 2022-08-25 15:40:00 125 mm[Hg] [facility] Diastolic blood pressure 2022-08-25 15:40:00 79 mm[Hg] [facility] Heart rate 2022-08-25 15:40:00 75 /min Un[facility] Body temperature 2022-08-25 15:40:00 36.61 Janneth [facility] Respiratory rate 2022-08-25 15:40:00 20 /min [facility] Body height 2022-08-25 15:40:00 170.2 cm [facility] Body weight 2022-08-25 15:40:00 72.122 kg [facility] BMI 2022-08-25 15:40:00 24.90 kg/m2 [facility] Systolic blood pressure 2022-07-20 18:28:00 109 mm[Hg] [facility] Diastolic blood pressure 2022-07-20 18:28:00 77 mm[Hg] [facility] Heart rate 2022-07-20 18:28:00 80 /min Un[facility] Body temperature 2022-07-20 18:28:00 36.56 Janneth [facility] Respiratory rate 2022-07-20 18:28:00 18 /min [facility] Body weight 2022-07-20 18:28:00 74.798 kg [facility] BMI 2022-07-20 18:28:00 25.83 kg/m2 [facility] Systolic blood pressure 2022-02-22 20:03:00 113 mm[Hg] [facility] Diastolic blood pressure 2022-02-22 20:03:00 64 mm[Hg] [facility] Heart rate 2022-02-22 20:03:00 74 /min Un[facility] Body temperature 2022-02-22 20:03:00 36.78 Janneth [facility] Respiratory rate 2022-02-22 20:03:00 20 /min [facility] Body height 2022-02-22 20:03:00 170.2 cm [facility] Body weight 2022-02-22 20:03:00 79.198 kg [facility] BMI 2022-02-22 20:03:00 27.35 kg/m2 [facility] Procedures Procedure Date / Time Performed Performing Clinician Source CBC WITH DIFF 2023-10-24 07:47:00 Ashley Duke [facility] [place] [facility] CBC WITH DIFF 2023-10-24 07:47:00 Ashley Duke [facility] [place] [facility] TUBAL LIGATION 2023-10-23 13:50:00 [facility] 2023-10-23 13:50:00 Zoya Marcos Un [facility] VENOUS CORD GAS 2023-10-23 07:57:00 El-Eishy, Alfarooq Y [facility] VENOUS CORD GAS 2023-10-23 07:57:00 El-Eishy, Alfarooq Y [facility] CENTRAL NEURAXIAL BLOCK 2023-10-23 02:01:00 Bma Severino [facility] CBC WITH DIFF 2023-10-22 19:52:00 El-Eishy, Alfarooq Y [facility] HEPATITIS B SURFACE ANTIGEN 2023-10-22 19:52:00 El-Eishy, Alfarooq Y [facility] HB ABO GROUPING 2023-10-22 19:52:00 El-Eishy, Alfarooq Y [facility] RHO (D) IMMUNE GLOBULIN 2023-10-22 19:52:00 Yamilex [facility] HIV 1/2 AG-AB WITH REFLEX 2023-10-22 19:52:00 El-Eishy , Alfarooq Y [facility] SYPHILIS IGG/IGM 2023-10-22 19:52:00 El-Eishy, Alfaroo q Y [facility] CBC WITH DIFF 2023-10-22 19:52:00 El-Eishy, Alfarooq Y [facility] HEPATITIS B SURFACE ANTIGEN 2023-10-22 19:52:00 El-Eishy, Alfarooq Y [facility] HB ABO GROUPING 2023-10-22 19:52:00 El-Eishy, Alfarooq Y [facility] RHO (D) IMMUNE GLOBULIN 2023-10-22 19:52:00 Yamilex [facility] HIV 1/2 AG-AB WITH REFLEX 2023-10-22 19:52:00 Watson Castanon Y [facility] SYPHILIS IGG/IGM 2023-10-22 19:52:00 Maribell Castanon Y [facility] POCT URINALYSIS 2023-10-12 21:35:00 Zulay Todd [facility] GC & CHLAMYDIA AMPLIFIED ASSAY 2023-10-03 17:38:00 Zulay Todd [facility] POCT URINALYSIS 2023-10-03 17:37:00 Zulay Todd [facility] CBC WITH DIFF 2023-10-03 17:31:00 Zulay Todd [facility] POCT URINALYSIS 2023-09-28 17:19:00 Zulay Todd [facility] POCT URINALYSIS 2023-09-15 14:58:00 Zulay Todd [facility] POCT URINALYSIS 2023-08-29 22:37:00 Zulay Todd [facility] HIV 1/2 AG-AB WITH REFLEX 2023-08-29 22:10:00 Zulay Nava [facility] POCT URINALYSIS 2023-08-15 21:18:00 Zulay Todd [facility] TDAP VACCINE, >11 YRS, IM 2023-08-15 21:15:47 Zulay Nava [facility] POCT URINALYSIS 2023-07-27 16:00:00 Zulay Todd [facility] STERILIZATION CONSENT FORM 2023-07-27 05:01:00 Doctor Unassigned, [place] [facility] POCT URINALYSIS 2023-07-13 13:30:00 Zulay Todd [facility] FLU VACC ([id number]), 6 MO-64 YRS, .5ML, IM, QUAD (FLUCELVAX) 2023-07-13 13:24:56 Angelita Wheeler [facility] POCT URINALYSIS 2023-07-13 13:18:00 Zulay Todd [facility] POCT URINALYSIS 2023-06-26 16:11:00 Zulay Todd [facility] POCT URINALYSIS 2023-06-15 18:32:00 Zulay Todd [facility] POCT MOLECULAR FLU 2023-06-15 18:28:00 Angelita Wheeler [facility] COVID-19 (MOLECULAR TESTING NUCLEIC ACID AMPLIFICATION) 2023-06-15 18:24:00 Angelita Wheeler [facility] LAB ONLY COVID INTERPRETATION 2023-06-15 18:24:00 Angelita Wheeler [facility] POCT MOLECULAR STREP 2023-06-15 18:23:00 Bryanna Wheeler [facility] SECOND AND THIRD TRIMESTER ULTRASOUND 2023-06-13 15:00:00 Zulay Todd [facility] SECOND AND THIRD TRIMESTER ULTRASOUND 2023-06-13 14:55:00 Zulay Todd [facility] POCT URINALYSIS 2023-05-18 00:00:00 Zulay Todd [facility] POCT URINALYSIS 2023-05-05 13:43:00 Zulay Todd [facility] MISCELLANEOUS SENDOUT TEST 2023-04-14 05:01:00 Doctor Unassigned, [place] [facility] POCT URINALYSIS 2023-03-30 20:11:00 Zulay Todd [facility] POCT URINALYSIS 2023-03-30 20:09:00 Zulay Todd [facility] POCT URINALYSIS W/O SPECIFIC GRAVITY 2023-02-28 19:23:00 Zulay Todd [facility] POCT TEST 2023-02-28 19:22:00 Altagracia Todd [facility] CONSENT/REFUSAL FOR DIAGNOSIS AND TREATMENT 2023-02-28 18:31:38 Doctor Unassigned, [place] [facility] POCT TEST 2022-10-11 20:02:00 Mati Tabares [facility] FLU VACC ([id number]), 6 MO-64 YRS, .5ML, IM, QUAD (FLUCELVAX) 2022-07-20 18:53:48 Jovan Reyna [facility] POCT TEST 2022-07-20 18:42:00 Jovan Reyna [facility] GC & CHLAMYDIA AMPLIFIED ASSAY 2022-02-22 20:57:00 Lara Tabares [facility] GALV ONLY - VAGINAL PATHOGENS BY NUCLEIC ACID TESTING 2022-02-22 20:57:00 Lara Tabares [facility] HIV 1/2 AG-AB WITH REFLEX 2022-02-22 20:57:00 Lara Tabares [facility] GALV ONLY - SYPHILIS IGG/IGM 2022-02-22 20:57:00 Lara Tabares [facility] POCT URINALYSIS W/O SPECIFIC GRAVITY 2022-02-22 00:00:00 Lara Tabares [facility] Encounters Start Date/Time End Date/Time Encounter Type Admission Type Attending [facility] Care Facility Care Department Encounter ID Source 2021-08-13 01:59:[address] [facility] [id number] [facility] 2023-12-19 09:45:00 2023-12-19 10:42:11 Outpatient R LARA TABARES [facility] [id number] [facility] 2023-12-19 09:45:00 2023-12-19 10:42:11 Office Visit Lara Tabares [facility]INTEND[facility] OF GENERATION [facility] 1.2.840.114 350.1.13.10 4.2.7.2.686 [id number] 107 [id number] [facility] 2023-12-12 10:30:00 2023-12-12 10:30:00 Outpatient R LARA TABARES [facility] [id number] [facility] 2023-11-20 10:15:00 2023-11-20 11:36:41 Outpatient R WILLIEGUERO LARA [facility] [id number] [facility] 2023-11-20 10:15:00 2023-11-20 11:36:41 Routine Visit Rayshawn Lara Blake [facility] SUPERINTENDENT OF GENERATION [facility] 1.2.840.114 350.1.13.10 4.2.7.2.686 [id number] 107 [id number] [facility] 2023-10-22 12:36:00 2023-10-25 13:33:00 Inpatient P ETIENNE BATISTAANAK [facility] [id number] [facility] 2023-10-22 12:36:00 2023-10-25 13:33:00 Hospital Encounter [facility] 1.2.840.114 350.1.13.10 4.2.7.2.686 [id number] [facility] 2023-10-23 08:00:00 2023-10-23 09:26:00 Surgery Zoya Marcos [facility] 1.2.840.114 350.1.13.10 4.2.7.2.686 [id number] [facility] 2023-10-22 19:58:00 2023-10-23 03:08:00 Anesthesia Event Bam Severino Brita [facility] 1.2.840.114 350.1.13.10 4.2.7.2.686 [id number] [facility] 2023-10-19 13:00:00 2023-10-19 13:13:08 Outpatient R ZULAY TODD [facility] [id number] [facility] 2023-10-19 13:00:00 2023-10-19 13:13:08 Routine Visit Zulay Todd [facility] SUPER[facility]END[facility] OF [facility] 1.2.840.114 350.1.13.10 4.2.7.2.686 [id number] [facility] 2023-10-12 15:45:00 2023-10-12 16:01:50 Outpatient R ZULAY TODD [facility] [id number] [facility] 2023-10-12 15:45:00 2023-10-12 16:01:50 Routine Visit Zulay Todd [facility] SUPERINTENDENT OF GENERATION [facility] 1.840.114 350.1.13.10 4.2.7.2.686 [id number] 107 [id number] [facility] 2023-10-05 00:00:00 2023-10-05 00:00:00 Telephone Zulay Todd [facility] SUPERINTEND[facility] OF GENER[facility] 1.84.114 350.1.13.10 4.2.7.2.686 [id number] [facility] 2023-10-03 10:45:00 2023-10-03 11:32:01 Outpatient R LARA TABARES [facility] [id number] [facility] 2023-10-03 10:45:00 2023-10-03 11:32:01 Routine Visit Lara Tabares [facility] .840.114 350.1.13.10 4.2.7.2.686 [id number] [facility] 2023-09-28 11:00:00 2023-09-28 12:02:40 Outpatient R ZULAY TODD [facility] [id number] [facility] 2023-09-28 11:00:00 2023-09-28 12:02:40 [facility] 1.84.114 350.1.13.10 4.2.7.2.686 [id number] 107 [id number] [facility] 2023-09-22 00:00:00 2023-09-22 00:00:00 Refill Lara Tabares [facility] SUPERINTENDENT OF [facility] 1.2840.114 350.1.13.10 4.2.7.2.686 [id number] [facility] 2023-09-15 09:00:00 2023-09-15 09:29:23 Outpatient R LARA TABARES [facility] [id number] [facility] 2023-09-15 09:00:00 2023-09-15 09:29:23 Routine Visit Lara Tabares [facility] 1.840.114 350.1.13.10 4.2.7.2.686 [id number] [facility] 2023-08-29 16:00:00 2023-08-29 16:36:17 Outpatient R ZULAY TODD [facility] [id number] [facility] 2023-08-29 16:00:00 2023-08-29 16:36:17 Routine Visit Zulay Todd [facility] SUPERINTEND[facility] OF [facility] 1.840.114 350.1.13.10 4.2.7.2.686 [id number] [facility] 2023-08-15 16:00:00 2023-08-15 16:39:11 Outpatient R ZULAY TODD [facility] [id number] [facility] 2023-08-15 16:00:00 2023-08-15 16:39:11 Routine Visit Zulay Todd [facility] SUPERINTENDENT OF [facility] 1.2840.114 350.1.13.10 4.2.7.2.686 [id number] [facility] 2023-08-15 00:00:00 2023-08-15 00:00:00 Letter (Out) Zulay Todd [facility] SUPERINTEND[facility] OF [facility] 1.2840.114 350.1.13.10 4.2.7.2.686 [id number] [facility] 2023-08-10 11:00:00 2023-08-10 11:00:00 Outpatient R ZULAY TODD [facility] [id number] [facility] 2023-07-28 00:00:00 2023-07-28 00:00:00 Case Management Zulay Todd [facility] 1.840.114 350.1.13.10 4.2.7.2.686 [id number] [facility] 2023-07-27 09:45:00 2023-07-27 10:32:57 Outpatient R ZULAY TODD [facility] [id number] [facility] 2023-07-27 09:45:00 2023-07-27 10:32:57 Routine Visit Zulay Todd [facility] 1.84.114 350.1.13.10 4.2.7.2.686 [id number] [facility] 2023-07-27 00:00:00 2023-07-27 00:00:00 Orders Only Doctor Unassigned, [place] [facility] 1..114 350.1.13.10 4.2.7.2.686 [id number] [facility] 2023-07-13 08:15:00 2023-07-13 09:04:44 Outpatient R ANGELITA WHEELER [facility] [id number] [facility] 2023-07-13 08:15:00 2023-07-13 09:04:44 Routine Visit Risk, Ang-Rmchp-N p/High Angelita Wheeler [facility] SUPERINTENDENT OF [facility] 1.840.114 350.1.13.10 4.2.7.2.686 [id number] [facility] 2023-07-13 08:00:00 2023-07-13 08:00:[address] [facility] [id number] [facility] 2023-06-26 09:30:00 2023-06-26 11:11:05 Outpatient R LARA TABARES [facility] [id number] [facility] 2023-06-26 09:30:00 2023-06-26 11:11:05 Routine Visit Provider, PierreRmchLara Hansen [facility] SUPERINTENDENT OF [facility] 1.84.114 350.1.13.10 4.2.7.2.686 [id number] [facility] 2023-06-26 00:00:00 2023-06-26 00:00:00 Letter (Out) Francie Georges [facility] SUPERINTEND[facility] OF [facility] 1..84.114 350.1.13.10 4.2.7.2.686 [id number] [facility] 2023-06-15 13:00:00 2023-06-15 13:30:17 Outpatient R ANGELITA WHEELER [facility] [id number] [facility] 2023-06-15 13:00:00 2023-06-15 13:30:17 Routine Visit Risk, Ang-Rmchp-N p/High Angelita Wheeler [facility] SUPERINTENDENT OF [facility] 1..840.114 350.1.13.10 4.2.7.2.686 [id number] [facility] 2023-06-15 13:00:00 2023-06-15 13:00:00 Outpatient R ANGELITA WHEELER [facility] [id number] [facility] 2023-06-15 00:00:00 2023-06-15 00:00:00 [facility] 1..840.114 350.1.13.10 4.2.7.2.686 [id number] [facility] 2023-06-14 00:00:00 2023-06-14 00:00:00 Case Management [facility] 1..840.114 350.1.13.10 4.2.7.2.686 [id number] [facility] 2023-06-13 09:00:00 2023-06-13 09:50:13 Outpatient P THAO GANT [facility] [id number] [facility] 2023-06-13 09:00:00 2023-06-13 09:50:13 Tooler Visit Ultrasound, Bal-Thao Ferraro [facility] SUPERINTENDENT OF GENER[facility] 1..840.114 350.1.13.10 4.2.7.2.686 [id number] [facility] 2023-05-23 00:00:00 2023-05-23 00:00:00 Patient Secure g Madyson Arnold [facility] SUPERINTENDENT OF GENERATION [facility] ELIZABETH CIFUENTES 1..840.114 350.1.13.10 4.2.7.2.686 [id number] [facility] 2023-05-18 13:00:00 2023-05-18 13:59:53 Out[address]ITA STEELE [facility] [id number] [facility] 2023-05-18 13:00:00 2023-05-18 13:59:53 Routine Visit Risk, Ang-Rmchp-N p/High Angelita Wheeler [facility] SUPERINTENDENT OF [facility] 1.2840.114 350.1.13.10 4.2.7.2.686 [id number] [facility] 2023-05-05 11:00:00 2023-05-05 11:00:00 Routine Visit Zulay Todd [facility] SUPERINTENDENT OF [facility] 1.840.114 350.1.13.10 4.2.7.2.686 [id number] [facility] 2023-05-05 11:00:00 2023-05-05 08:58:51 Outpatient R ZULAY TODD [facility] [id number] [facility] 2023-05-05 08:30:00 2023-05-05 08:30:00 Outpatient R LARA TABARES [facility] [id number] [facility] 2023-04-27 14:00:00 2023-04-27 14:00:[address] [facility] [id number] [facility] 2023-04-24 13:00:00 2023-04-24 13:00:00 Tooler Visit Lab, Zee-Rmchp Thao Gant [facility] SUPERINTENDENT OF GENER[facility] 1.2840.114 350.1.13.10 4.2.7.2.686 [id number] [facility] 2023-04-24 11:15:00 2023-04-24 12:00:00 Tooler Visit 1, [facility] Thao Gant [facility] SUPERINTENDENT OF GENERATION [facility] 1.2840.114 350.1.13.10 4.2.7.2.686 [id number] [facility] 2023-04-24 13:00:00 2023-04-24 11:53:[address]ONA [facility] [id number] [facility] 2023-04-24 00:00:00 2023-04-24 00:00:00 Case Management Zulay Todd [facility] SUPERINTENDENT OF GENER[facility] 1.2.840.114 350.1.13.10 4.2.7.2.686 [id number] [facility] 2023-04-21 00:00:00 2023-04-21 00:00:00 Telephone Margie Robins [facility] 1..840.114 350.1.13.10 4.2.7.2.686 [id number] [facility] 2023-04-21 00:00:00 2023-04-21 00:00:00 Patient Secure Msg Doctor Unassigned, [place] [facility] SUPERINTENDENT OF GENERATION [facility] CHILD [facility] 1.2.840.114 350.1.13.10 4.2.7.2.686 [id number] [facility] 2023-04-14 10:30:00 2023-04-14 11:20:33 Tooler Visit [facility] SUPERINTENDENT OF GENERATION [facility] CH[facility] 1..840.114 350.1.13.10 4.2.7.2.686 [id number] [facility] 2023-04-14 09:45:00 2023-04-14 10:29:[address] WEISS [facility] [id number] [facility] 2023-04-14 09:45:00 2023-04-14 10:29:41 Telemedici ne Visit Margie Robins Swetha [facility] SUPERINTENDENT OF GENER[facility] 1.840.114 350.1.13.10 4.2.7.2.686 [id number] [facility] 2023-04-14 00:00:00 2023-04-14 00:00:00 Orders Only Doctor Unassigned, [place] [facility] 1.840.114 350.1.13.10 4.2.7.2.686 [id number] [facility] 2023-04-13 08:30:00 2023-04-13 08:30:[address] [facility] [id number] [facility] 2023-04-10 00:00:00 2023-04-10 00:00:00 [facility] CH[facility] 1.0.114 350.1.13.10 4.2.7.2.686 [id number] [facility] 2023-04-10 00:00:00 2023-04-10 00:00:00 Patient Secure Msg Doctor Unassigned, [place] [facility] SUPERINTENDENT OF GENERATION [facility] CH[facility] 1.0.114 350.1.13.10 4.2.7.2.686 [id number] [facility] 2023-03-30 14:30:00 2023-03-30 15:36:58 Outpatient R ANGELITA WHEELER [facility] [id number] [facility] 2023-03-30 14:30:00 2023-03-30 15:36:58 Routine Visit Risk, Ang-Rmchp-N p/High Angelita Wheeler [facility] SUPERINTENDENT OF [facility] 1.2840.114 350.1.13.10 4.2.7.2.686 [id number] [facility] 2023-03-30 13:15:00 2023-03-30 13:15:00 Outpatient R ALEJANDROCANDYANGELITA [facility] [id number] [facility] 2023-03-28 14:15:00 2023-03-28 14:15:00 Outpatient R LARA TABARES [facility] [id number] [facility] 2023-02-28 14:15:00 2023-02-28 15:12:30 Outpatient R ZULAY TODD [facility] [id number] [facility] 2023-02-28 14:15:00 2023-02-28 15:12:30 Initial Visit Zulay Todd [facility] SUPERINTENDENT OF [facility]ATION [facility] 1..840.114 350.1.13.10 4.2.7.2.686 [id number] [facility] 2023-02-28 00:00:00 2023-02-28 00:00:00 Orders Only Doctor Unassigned, [place] [facility] 1..840.114 350.1.13.10 4.2.7.2.686 [id number] [facility] 2022-10-11 13:30:00 2022-10-11 14:37:39 Outpatient R LARA TABARES [facility] [id number] [facility] 2022-10-11 13:30:00 2022-10-11 14:37:39 Office Visit Lara Tabares [facility] SUPERINTENDENT OF [facility] ..840.114 350.1.13.10 4.2.7.2.686 [id number] 107 [id number] [facility] 2022-08-25 09:45:00 2022-08-25 10:41:13 Outpatient R ZULAY TODD [facility] [id number] [facility] 2022-08-25 09:45:00 2022-08-25 10:41:13 Office Visit Provider, PierreRmchZulay Aviles [facility] SUPERINTENDENT OF GENERATION [facility]ILD [facility] 1.2.840.114 350.1.13.10 4.2.7.2.686 [id number] [facility] 2022-07-20 13:15:00 2022-07-20 14:04:15 Outpatient R JOVAN ERYNA EMILY [facility] [id number] [facility] 2022-07-20 13:15:00 2022-07-20 14:04:15 Office Visit Provider, Jovan Ladd [facility] SUPERINTENDENT OF [facility] ..840.114 350.1.13.10 4.2.7.2.686 [id number] 107 [id number] [facility] 2022-07-11 08:15:00 2022-07-11 08:15:00 Outpatient R LARA TABARES [facility] [id number] [facility] 2022-06-27 13:45:00 2022-06-27 13:45:00 Outpatient R LARA TABARES [facility] [id number] [facility] 2022-05-31 10:45:00 2022-05-31 10:45:00 Outpatient R LARA TABARES [facility] [id number] [facility] 2022-02-23 00:00:00 2022-02-23 00:00:00 Telephone Lara Tabares [facility] SUPERINTENDENT OF [facility] ..840.114 350.1.13.10 4.2.7.2.686 [id number] 107 [id number] [facility] 2022-02-22 14:45:00 2022-02-22 15:58:43 Outpatient R LARA TABARES [facility] [id number] [facility] 2022-02-22 14:45:00 2022-02-22 15:58:43 Office Visit Lara Tabares [facility] SUPERINTENDENT OF [facility] 1.0.114 350.1.13.10 4.2.7.2.686 [id number] [facility] 2022-02-22 00:00:00 2022-02-22 00:00:00 Orders Only Doctor Unassigned, [place] [facility] 1.20.114 350.1.13.10 4.2.7.2.686 [id number] [facility] 2022-02-22 00:00:00 2022-02-22 00:00:00 Letter (Out) Lara Tabares [facility] SUPERINTENDENT OF GENERATION [facility] CHILD [facility] 1..114 350.1.13.10 4.2.7.2.686 [id number] 107 [id number] [facility] 2021-12-28 15:00:00 2021-12-28 15:00:[address] [facility] [id number] [facility] 2021-12-28 15:00:00 2021-12-28 15:00:00 Outpatient R LARA TABARES [facility] [id number] [facility] 2021-10-23 00:00:00 2021-10-23 00:00:00 Jovan Oseguera [facility] SUPERINTENDENT OF [facility] 1..114 350.1.13.10 4.2.7.2.686 [id number] 107 [id number] [facility] 2021-10-05 14:30:00 2021-10-05 14:49:24 Office Visit Jovan Cruz [facility] SUPERINTENDENT OF [facility] 1.840.114 350.1.13.10 4.2.7.2.686 [id number] 107 [id number] [facility] 2021-10-05 14:30:00 2021-10-05 14:49:24 Outpatient R JOVAN CRUZ [facility] [id number] [facility] 2021-10-05 14:30:00 2021-10-05 14:30:00 Outpatient R JOVAN CRUZ [facility] [id number] [facility] 2021-07-13 14:11:12 2021-07-13 15:00:50 Office Visit Lara Tabares [facility] SUPERINTENDENT OF [facility] ..840.114 350.1.13.10 4.2.7.2.686 [id number] 107 [id number] [facility] 2021-07-13 14:15:00 2021-07-13 14:15:00 Outpatient R LARA TABARES [facility] [id number] [facility] 2021-04-22 15:30:00 2021-04-22 15:30:[address] [facility] [id number] [facility] 2021-04-20 16:09:50 2021-04-20 16:25:01 Nurse Visit Visit, Bal-Rmchp Nurse Lara Tabares [facility] ..840.114 350.1.13.10 4.2.7.2.686 [id number] 107 [id number] [facility] 2021-04-20 16:00:00 2021-04-20 16:00:[address] [facility] [id number] [facility] 2021-02-23 14:03:58 2021-02-23 15:26:49 Office Visit Lara Tabares [facility] ..840.114 350.1.13.10 4.2.7.2.686 [id number] 107 [id number] [facility] 2021-02-23 14:15:00 2021-02-23 14:15:00 Outpatient R LARA TABARES [facility] [id number] [facility] 2021-02-23 00:00:00 2021-02-23 00:00:00 Telephone Lara Tabares [facility] SUPERINTENDENT OF [facility] 1.2.840.114 350.1.13.10 4.2.7.2.686 [id number] 107 [id number] [facility] 2021-01-27 15:33:41 2021-01-27 15:48:41 Nurse Visit Visit, MichelleLara Reveles [facility] SUPERINTENDENT OF GENERATION [facility] 1.2.840.114 350.1.13.10 4.2.7.2.686 [id number] 107 [id number] [facility] 2021-01-27 15:30:00 2021-01-27 15:30:[address] [facility] [id number] [facility] 2021-01-05 00:00:00 2021-01-05 00:00:00 Patient Outreach Benjamin Marcos [facility] 1.2.840.114 350.1.13.10 4.2.7.2.686 [id number] [facility] 2020-11-04 14:06:55 2020-11-04 14:39:49 Nurse Visit Visit, Lara Shultz [facility] 1.2.840.114 350.1.13.10 4.2.7.2.686 [id number] 107 [id number] [facility] 2020-11-04 14:00:00 2020-11-04 14:00:00 Outpatient R LARA TABARES [facility] [id number] [facility] 2020-10-21 15:00:00 2020-10-21 15:00:[address] [facility] [id number] [facility] 2020-10-13 13:30:00 2020-10-13 13:30:[address] [facility] [id number] [facility] 2020-10-07 14:55:00 2020-10-07 15:17:32 Nurse Visit Visit, Ang-Rmchp Nurse Lara Tabares [facility] SUPERINTENDENT OF GENERATION [facility]ILD [facility] 1..840.114 350.1.13.10 4.2.7.2.686 [id number] 107 [id number] [facility] 2020-10-07 15:00:00 2020-10-07 15:00:00 Outpatient [address] SHAH [facility] [id number] [facility] 2020-10-07 00:00:00 2020-10-07 00:00:00 Orders Only Doctor Unassigned, [place] [facility] 1..840.114 350.1.13.10 4.2.7.2.686 [id number] [facility] 2020-09-29 13:39:32 2020-09-29 14:03:49 Office Visit Lara Tabares [facility] SUPERINTENDENT OF [facility] 1..840.114 350.1.13.10 4.2.7.2.686 [id number] 107 [id number] [facility] 2020-09-29 13:30:00 2020-09-29 13:30:00 Outpatient R LARA TABARES [facility] [id number] [facility] 2020-09-22 15:15:00 2020-09-22 15:15:00 Outpatient R LARA TABARES [facility] [id number] [facility] 2020-09-16 14:45:00 2020-09-16 14:45:00 Outpatient R LARA TABARES [facility] [id number] [facility] 2020-09-15 10:30:00 2020-09-15 10:30:00 Outpatient R LARA TAABRES [facility] [id number] [facility] 2020-08-26 15:17:52 2020-08-26 16:11:07 Office Visit Lara Tabares [facility] SUPERINTENDENT OF [facility] 1.2.840.114 350.1.13.10 4.2.7.2.686 [id number] 107 [id number] [facility] 2020-08-26 15:00:00 2020-08-26 15:00:00 Outpatient R LAAR TABARES [facility] [id number] [facility] 2020-08-18 15:15:00 2020-08-18 15:15:00 Outpatient R ANJULARA DAWKINS [facility] [id number] [facility] 2020-05-18 15:19:27 2020-05-18 16:23:06 Office Visit Lara Tabares Roshunda [facility] SUPERINTENDENT OF [facility] 1.2.840.114 350.1.13.10 4.2.7.2.686 [id number] 107 [id number] [facility] 2020-05-18 15:15:00 2020-05-18 15:15:00 Outpatient R JOVANA HUGO [facility] [id number] [facility] 2020-04-27 09:14:53 2020-04-27 09:45:07 Routine Visit Jovana Hugo [facility] SUPERINTENDENT OF [facility] 1.2.840.114 350.1.13.10 4.2.7.2.686 [id number] [facility] 2020-04-27 09:30:00 2020-04-27 09:30:00 Outpatient R JOVANA HUGO [facility] [id number] [facility] 2020-04-04 20:05:00 2020-04-06 19:30:00 Hospital En[facility] 1.2.84.114 350.1.13.10 4.2.7.2.686 [id number] [facility] 2020-04-06 00:00:00 2020-04-06 00:00:00 Abstract Lara Tabares [facility] SUPERINTENDENT OF GENERATION [facility] 1..114 350.1.13.10 4.2.7.2.686 [id number] 107 [id number] [facility] 2020-04-01 15:28:59 2020-04-01 15:57:53 Routine Visit Jovana Hugo [facility] SUPERINTENDENT OF [facility] 1.84.114 350.1.13.10 4.2.7.2.686 [id number] 107 [id number] [facility] 2020-04-01 15:45:00 2020-04-01 15:45:00 Outpatient R JOVANA HUGO [facility] [id number] [facility] 2020-03-31 08:29:04 2020-03-31 08:53:06 Tooler Visit Ultrasound, Dank Mejia [facility] SUPERINTENDENT OF [facility] 1..114 350.1.13.10 4.2.7.2.686 [id number] [facility] 2020-03-31 08:30:00 2020-03-31 08:30:[address] [facility] [id number] [facility] 2020-03-26 14:56:31 2020-03-26 15:35:28 Routine Visit Provider, Venus Turcios [facility] SUPERINTENDENT OF [facility] 1..114 350.1.13.10 4.2.7.2.686 [id number] 107 [id number] [facility] 2020-03-26 15:00:00 2020-03-26 15:00:[address] [facility] [id number] [facility] 2020-03-20 00:00:00 2020-03-20 00:00:00 Telephone Lara Tabares [facility] SUPERINTENDENT OF [facility] 1.2.840.114 350.1.13.10 4.2.7.2.686 [id number] 107 [id number] [facility] 2020-03-18 12:45:09 2020-03-18 13:20:10 Routine Visit Provider, Venus Turcios [facility] SUPERINTENDENT OF [facility] 1.2.840.114 350.1.13.10 4.2.7.2.686 [id number] 107 [id number] [facility] 2020-03-18 12:45:00 2020-03-18 12:45:[address] [facility] [id number] [facility] 2020-03-13 00:00:00 2020-03-13 00:00:00 Telephone Lara Tabares [facility] SUPERINTENDENT OF GENERATION [facility] CHILD [facility] 1.2.840.114 350.1.13.10 4.2.7.2.686 [id number] [facility] 2020-03-12 00:00:00 2020-03-12 00:00:00 Telephone Lara Tabares [facility] SUPERINTENDENT OF [facility] 1.2.840.114 350.1.13.10 4.2.7.2.686 [id number] [facility] 2020-03-11 10:14:34 2020-03-11 10:29:34 Routine Visit Lara Tabares [facility] SUPERINTENDENT OF [facility] 1.2.840.114 350.1.13.10 4.2.7.2.686 [id number] 107 [id number] [facility] 2020-03-11 10:15:00 2020-03-11 10:15:00 [id number] 2020-02-26 11:44:51 2020-02-26 13:42:56 Telemedici ne Visit Lara Tabares SUPERINTENDENT OF GENERATION [facility] 1.2.840.114 350.1.13.10 4.2.7.2.686 [id number] 107 [id number] [facility] 2020-02-26 12:45:00 2020-02-26 12:45:00 Outpatient R LARA TABARES [facility] [id number] [facility] 2020-02-20 10:22:58 2020-02-20 10:33:44 Nurse Visit Visit, Ang-Rmchp Nurse Lara Tabares [facility] SUPERINTENDENT OF GENERATION [facility] CHILD [facility] 1.2840.114 350.1.13.10 4.2.7.2.686 [id number] [facility] 2020-02-20 10:00:00 2020-02-20 10:00:00 Outpatient R LARA TABARES [facility] [id number] [facility] 2020-02-20 00:00:00 2020-02-20 00:00:00 Orders Only Doctor Unassigned, [place] [facility] 1.840.114 350.1.13.10 4.2.7.2.686 [id number] [facility] 2020-02-19 00:00:00 2020-02-19 00:00:00 Telephone Lara Tabares [facility] SUPERINTENDENT OF GENERATION [facility] CH[facility] 1.20.114 350.1.13.10 4.2.7.2.686 [id number] [facility] 2020-02-10 10:45:00 2020-02-10 10:45:00 Outpatient R LARA TABARES [facility] [id number] [facility] 2020-02-10 10:30:00 2020-02-10 10:30:00 Outpatient R ANJUMIRIANGUEROJUANALARA [facility] [id number] [facility] 2020-01-31 14:06:08 2020-01-31 14:54:35 Routine Visit Lara Tabares NCAYESHA SUPERINTENDENT OF [facility]ATION [facility] 1.2.840.114 350.1.13.10 4.2.7.2.686 [id number] [facility] 2020-01-31 14:00:00 2020-01-31 14:00:00 Outpatient R LARA TABARES [facility] [id number] [facility] 2020-01-28 15:00:00 2020-01-28 15:00:00 Outpatient R LARA TABARES [facility] [id number] [facility] 2020-01-15 00:00:00 2020-01-15 00:00:00 Telephone Monica Tabaresola Lou [facility] SUPERINTENDENT OF [facility] 1.2.840.114 350.1.13.10 4.2.7.2.686 [id number] [facility] 2020-01-15 00:00:00 2020-01-15 00:00:00 Telephone Lara Tabares NCAYESHA SUPERINTENDENT OF [facility] 1.2.840.114 350.1.13.10 4.2.7.2.686 [id number] 107 [id number] [facility] 2020-01-14 14:05:01 2020-01-14 15:15:00 Routine Visit Lara Tabares [facility] SUPERINTENDENT OF [facility] 1.2.840.114 350.1.13.10 4.2.7.2.686 [id number] [facility] 2020-01-14 14:00:00 2020-01-14 14:00:00 Outpatient R AKINSIPE, LARA [facility] [id number] [facility] 2019-12-31 00:00:00 2019-12-31 00:00:00 Abstract Lara Tabares [facility] SUPERINTENDENT OF [facility] 1.2.840.114 350.1.13.10 4.2.7.2.686 [id number] [facility] 2019-12-30 12:45:00 2019-12-30 12:45:00 Outpatient R LARA TABARES [facility] [id number] [facility] 2019-12-17 09:50:07 2019-12-17 10:51:34 Routine Visit Lara Tabares [facility] SUPERINTENDENT OF [facility] 1.2.840.114 350.1.13.10 4.2.7.2.686 [id number] 107 [id number] [facility] 2019-12-17 09:30:00 2019-12-17 09:30:00 Outpatient R LARA TABARES [facility] [id number] [facility] 2019-12-06 00:00:00 2019-12-06 00:00:00 Abstract Lara Tabares [facility] SUPERINTENDENT OF [facility] 1.2.840.114 350.1.13.10 4.2.7.2.686 [id number] 107 [id number] [facility] 2019-12-05 12:57:02 2019-12-05 13:27:02 Tooler Visit Ultrasound, Dank Mejia [facility] SUPERINTENDENT OF [facility] 1.2840.114 350.1.13.10 4.2.7.2.686 [id number] [facility] 2019-11-29 13:30:34 2019-11-29 14:00:19 Routine Visit AnjuLara dawkins [facility] SUPERINTENDENT OF [facility] 1.2.840.114 350.1.13.10 4.2.7.2.686 [id number] [facility] 2019-11-01 12:46:05 2019-11-13 14:07:26 Routine Visit Lara Tabares [facility] SUPERINTENDENT OF [facility] 1.2.840.114 350.1.13.10 4.2.7.2.686 [id number] [facility] 2019-11-13 13:52:18 2019-11-13 14:07:18 Tooler Visit Lab, Bal-Rmchp Lara Tabares [facility] SUPERINTENDENT OF [facility] 1.2.840.114 350.1.13.10 4.2.7.2.686 [id number] [facility] 2019-11-13 00:00:00 2019-11-13 00:00:00 Telephone Lara Tabares [facility] SUPERINTENDENT OF GENERATION [facility] 1.2.840.114 350.1.13.10 4.2.7.2.686 [id number] [facility] 2019-11-12 00:00:00 2019-11-12 00:00:00 Abstract Lara Tabares [facility] SUPERINTENDENT OF [facility] 1.2.840.114 350.1.13.10 4.2.7.2.686 [id number] 107 [id number] [facility] 2019-11-12 00:00:00 2019-11-12 00:00:00 Telephone Lara Tabares [facility] SUPERINTENDENT OF [facility] 1.2.840.114 350.1.13.10 4.2.7.2.686 [id number] 107 [id number] [facility] Results Test Description Test Time Test Comments Results Result Co [facility] [id number] 16:43:09* Test Item Value Reference Range Interpretation Comme nts Syphilis IgG/IgM (test code = 49526-7) Non-reactive Non-reactive MINE (test code = MINE) Non-reactive - No serologic evidence of T. pallidum infection. Cannot exclude incubating or early syphilis. Submit a second specimen in 2-4 weeks if syphilis is clinically suspected. Equivocal - Further testing to follow. Reactive - Further testing to follow. Lab Interpretation (test code = 15852-6) Normal [facility] (D) IMMUNE [id number] 11:37:48* Test Item Value Reference Range Interpretation Comme nts RHIG CANDIDATE? (test code = 5188) No- see comment Patient is not a candidate for RhIg- Patient is Rh Positive.Performed at [facility] Laboratory Services [facility] Blood [address] Free: [phone] No. [id number] [facility] () IMMUNE [id number] 11:37:48* Test Item Value Reference Range Interpretation Comme nts RHIG CANDIDATE? (test code = 5188) No- see comment Patient is not a candidate for RhIg- Patient is Rh Positive.Performed at [facility] Laboratory Services [facility] Blood [address] Free: [phone] No. [id number] [facility] [id number] 08:09:06* Test Item Value Reference Range Interpretation Comme nts BASE EXCESS, CORD (test code = 4273406998) -2.3 mEq/L QUES AC PH, CORD (BEAKER) (test code = 7097705199) 7.32 7.18-7.38 PC02, CORD (test code = 2311487571) 48 See_Comment [Automated messa ge] The system which generated this result transmitted reference range: 32 - 66 mmHg. The reference range was not used to interpret this result as normal/abnormal. PO2, CORD (test code = 7767230426) 16 See_Comment [Automated messa ge] The system which generated this result transmitted reference range: 10 - 30 mmHg. The reference range was not used to interpret this result as normal/abnormal. BICARBONATE, CORD (test code = 5585277016) 24 See_Comment [Automated messa ge] The system which generated this result transmitted reference range: 17 - 27 mEq/L. The reference range was not used to interpret this result as normal/abnormal. [facility] Cord [id number] 08:09:06* Test Item Value Reference Range Interpretation Comme nts BASE EXCESS, CORD (test code = 2023348534) -2.3 mEq/L QUES AC PH, CORD (BEAKER) (test code = 1583283543) 7.32 7.18-7.38 PC02, CORD (test code = 5817600205) 48 See_Comment [Automated messa ge] The system which generated this result transmitted reference range: 32 - 66 mmHg. The reference range was not used to interpret this result as normal/abnormal. PO2, CORD (test code = 0256871084) 16 See_Comment [Automated messa ge] The system which generated this result transmitted reference range: 10 - 30 mmHg. The reference range was not used to interpret this result as normal/abnormal. BICARBONATE, CORD (test code = 6532334817) 24 See_Comment [Automated messa ge] The system which generated this result transmitted reference range: 17 - 27 mEq/L. The reference range was not used to interpret this result as normal/abnormal. [facility] Cord [id number] 08:08:35* Test Item Value Reference Range Interpretation Comme nts VENOUS BASE EXCESS, CORD (test code = 5737733234) 0.3 mEq/L VENOUS PH, CORD (test code = 7181418013) 7.43 7.25-7.45 VENOUS PC02, CORD (test code = 1923068448) 38 See_Comment [Automated messa ge] The system which generated this result transmitted reference range: 27 - 49 mmHg. The reference range was not used to interpret this result as normal/abnormal. VENOUS PO2, CORD (test code = 4170148008) 32 See_Comment [Automated me ssage] The system which generated this result transmitted reference range: 17 - 41 mmHg. The reference range was not used to interpret this result as normal/abnormal. VENOUS BICARBONATE, CORD (test code = 8394600982) 24 See_Comment QUES [Automated message] The system which generated this result transmitted reference range: 12 - 29 mEq/L. The reference range was not used to interpret this result as normal/abnormal. [facility] [id number] 08:08:35* Test Item Value Reference Range Interpretation Comme nts VENOUS BASE EXCESS, CORD (test code = 8247222162) 0.3 mEq/L VENOUS PH, CORD (test code = 9007691344) 7.43 7.25-7.45 VENOUS PC02, CORD (test code = 9273235460) 38 See_Comment [Automated messa ge] The system which generated this result transmitted reference range: 27 - 49 mmHg. The reference range was not used to interpret this result as normal/abnormal. VENOUS PO2, CORD (test code = 3766764018) 32 See_Comment [Automated me ssage] The system which generated this result transmitted reference range: 17 - 41 mmHg. The reference range was not used to interpret this result as normal/abnormal. VENOUS BICARBONATE, CORD (test code = 9156525224) 24 See_Comment QUES [Automated message] The system which generated this result transmitted reference range: 12 - 29 mEq/L. The reference range was not used to interpret this result as normal/abnormal. [id number] 02:01:00Bam Severino, DO ? ? 10/22/2023 ?8:02 PM Central Neuraxial Block Date/Time: 10/22/2023 8:01 PM Performed by: Bam Severino, DOAuthorized by: Hortencia Turpin MD ?Patient Location: OBReason for Block: OB request, Patient request and Labor analgesiaStaff: ?Anesthesiologist: Hortencia Turpin MD ?Resident/SMOKE JUMPER SUPERVISOR: Zacarias Christie MD ?Performed by: resident/CRNAPreanesthetic Checklist: [...] and MICHELLE saline ?Guidance with: landmark technique}Epidural/Spinal [place] and/or Catheter: ?Epidural/Spinal Kit: GIOVANIraun ?Needle Type: Tuohy ?Needle Gauge: 17 G [...] procedure well with no complicationsNotes: ? [facility] WITH [id number] 21:51:35* Test Item Value Reference Range Interpretation Comme [facility] HIV Semi-quantitative (test code = 52721-7) 0.07 Negative MINE (test code = MINE) Non-reactive for HIV-1 antigen and HIV-1/HIV-2 antibodies. ?No laboratory evidence of HIV infection. ?Repeat in 2-4 weeks if acute HIV infection is suspected. [facility] 1/2 AG-AB WITH [id number] 21:51:35* Test Item Value Reference Range Interpretation Comme [facility] HIV Semi-quantitative (test code = 70523-6) 0.07 Negative MINE (test code = MINE) Non-reactive for HIV-1 antigen and HIV-1/HIV-2 antibodies. ?No laboratory evidence of HIV infection. ?Repeat in 2-4 weeks if acute HIV infection is suspected. [facility] B Surface Ogsnktl6112-22-54 21:41:51 * Test Item Value Reference Range Interpretation Comme [facility] HBsAg Semi-Quantitative (vivien t code = 5195-3) 0.[address] [facility] B Surface Jjpxroo9076-96-10 21:41:51 * Test Item Value Reference Range Interpretation Comme [facility] HBsAg Semi-Quantitative (vivien t code = 5195-3) 0.10 Negative [facility] with Rkoxrofutcnx4224-73-68 20:13:56* Test Item Value Reference Range Interpretation Comme nts WBC (test code = 6690-2) 8.89 See_Comment [Automated Wikirina ge] The system which generated this result transmitted reference range: 4.30 - 11.10 10*3/?L. The reference range was not used to interpret this result as normal/abnormal. RBC (test code = 789-8) 4.63 See_Comment [Automated Wikirina ge] The system which generated this result [...] g/dL 31.6-35.1 L RDW-SD (test code = 73180-3) 65.0 fL 39.0-49.9 H RDW-CV (test code = 788-0) 28.1 % 12.0-15.5 H PLT (test code = 777-3) 321 See_Comment [Automated Wikirina ge] The system which generated this result transmitted reference range: 166 - 358 10*3/?L. The reference range was not used to interpret this result as normal/abnormal. MPV (test code = 67516-2) 11.3 fL 9.5-12.9 IPF % (test code = 3165740316) 7.3 % 1.3-7.7 Platelet count measured by fluorescence method. NRBC/100 WBC (test code = 1648493744) 0.2 See_Comment [Automated Tenlegs ssage] The system which generated this result transmitted reference range: 0.0 - 10.0 /100 WBCs. The reference range was not used to interpret this result as normal/abnormal. NRBC x10^3 (test code = 3324263929) 0.02 See_Comment [Automated Wikirina ge] The system which generated this result transmitted reference range: 10*3/?L. The reference range was not used to interpret this result as normal/abnormal. GRAN MAT (NEUT) % (test code = 770-8) 67.5 % IMM GRAN % (test code = 3480919697) 1.20 % LYMPH % (test code = 736-9) 22.8 % MONO % (test code = 5905-5) 5.1 % EOS % (test code = 713-8) 2.6 % BASO % (test code = 706-2) 0.8 % GRAN MAT x10^3(ANC) (test code = 7598843169) 6.00 10*3/uL 1.88-7.09 IMM GRAN x10^3 (test code = 3467572579) 0.11 10*3/uL 0.00-0.06 H LYMPH x10^3 (test code = 731-0) 2.03 10*3/uL 1.32-3.29 MONO x10^3 (test code = 742-7) 0.45 10*3/uL 0.33-0.92 EOS x10^3 (test code = 711-2) 0.23 10*3/uL 0.03-0.39 BASO x10^3 (test code = 704-7) 0.07 10*3/uL 0.01-0.07 Lab Interpretation (test code = 03587-6) Abnormal [facility] with Tlgwlxpwbspf1708-56-39 20:13:56* Test Item Value Reference Range Interpretation Comme nts WBC (test code = 6690-2) 8.89 See_Comment [Automated messa ge] The system which generated this result transmitted reference range: 4.30 - 11.10 10*3/?L. The reference range was not used to interpret this result as normal/abnormal. RBC (test code = 789-8) 4.63 See_Comment [Automated messa ge] The system which [...] g/dL 31.6-35.1 L RDW-SD (test code = 58565-5) 65.0 fL 39.0-49.9 H RDW-CV (test code = 788-0) 28.1 % 12.0-15.5 H PLT (test code = 777-3) 321 See_Comment [Automated Wikirina ge] The system which generated this result transmitted reference range: 166 - 358 10*3/?L. The reference range was not used to interpret this result as normal/abnormal. MPV (test code = 21006-1) 11.3 fL 9.5-12.9 IPF % (test code = 0749031864) 7.3 % 1.3-7.7 Platelet count measured by fluorescence method. NRBC/100 WBC (test code = 6667642796) 0.2 See_Comment [Automated Tenlegs ssage] The system which generated this result transmitted reference range: 0.0 - 10.0 /100 WBCs. The reference range was not used to interpret this result as normal/abnormal. NRBC x10^3 (test code = 6568136989) 0.02 See_Comment [Automated Wikirina ge] The system which generated this result transmitted reference range: 10*3/?L. The reference range was not used to interpret this result as normal/abnormal. GRAN MAT (NEUT) % (test code = 770-8) 67.5 % IMM GRAN % (test code = 4421979434) 1.20 % LYMPH % (test code = 736-9) 22.8 % MONO % (test code = 5905-5) 5.1 % EOS % (test code = 713-8) 2.6 % BASO % (test code = 706-2) 0.8 % GRAN MAT x10^3(ANC) (test code = 9595880740) 6.00 10*3/uL 1.88-7.09 IMM GRAN x10^3 (test code = 9987312550) 0.11 10*3/uL 0.00-0.06 H LYMPH x10^3 (test code = 731-0) 2.03 10*3/uL 1.32-3.29 MONO x10^3 (test code = 742-7) 0.45 10*3/uL 0.33-0.92 EOS x10^3 (test code = 711-2) 0.23 10*3/uL 0.03-0.39 BASO x10^3 (test code = 704-7) 0.07 10*3/uL 0.01-0.07 Lab Interpretation (test code = 03803-4) [facility] TZDE0998-98-87 19:58:00 * Test Item Value Reference Range Interpretation Comme nts ABO & RH (test code = 20) O POSITIVE IAT (test code = 1185) Negative [facility] and Screen - ONCE RZUS0016-69-19 19:58:00 * Test Item Value Reference Range Interpretation Comme nts ABO & RH (test code = 20) O POSITIVE IAT (test code = 1185) Negative [facility] URINALYSIS W SPECIFIC WPDZFVH4916-15-60 21:35:00* Test Item Value Reference Range Interpretation [...] U APPEAR (test code = 3267) . [facility] URINALYSIS W SPECIFIC YZNTJQV2070-68-97 17:37:00* Test Item Value Reference Range Interpretation [...] POCT U APPEAR (test code = 3267) [facility] URINALYSIS W SPECIFIC RVDQALB1720-75-81 17:19:00* Test Item Value Reference Range Interpretation [...] U APPEAR (test code = 3267) * [facility] URINALYSIS W SPECIFIC ZPGNEYN7654-84-20 14:58:00* Test Item Value Reference Range Interpretation [...] U APPEAR (test code = 3267) . [facility] WITH YLUOLD4387-47-25 08:47:47* Test Item Value Reference Range Interpretation Comme nts HIV Semi-quantitative (test code = 37516-1) 0.11 Negative MINE (test code = MINE) Non-reactive for HIV-1 antigen and HIV-1/HIV-2 antibodies. ?No laboratory evidence of HIV infection. ?Repeat in 2-4 weeks if acute HIV infection is suspected. [facility] DUQEUQR5262-74-86 22:37:00* Test Item Value Reference Range Interpretation [...] U APPEAR (test code = 3267) . [facility] URINALYSIS W SPECIFIC VQDKRNW9283-28-02 22:37:00* Test Item Value Reference Range Interpretation [...] U APPEAR (test code = 3267) . [facility] URINALYSIS W SPECIFIC WKFIKUN9768-63-20 22:37:00* Test Item Value Reference Range Interpretation [...] U APPEAR (test code = 3267) . [facility] URINALYSIS W SPECIFIC QOYFUZP3871-52-51 21:18:00* Test Item Value Reference Range Interpretation [...] POCT U APPEAR (test code = 3267) [facility] URINALYSIS W SPECIFIC DKIAHEV9458-05-44 16:00:00* Test Item Value Reference Range Interpretation [...] POCT U APPEAR (test code = 3267) [facility] URINALYSIS W SPECIFIC EIIRJKZ3326-51-43 13:31:00* Test Item Value Reference Range Interpretation [...] POCT U APPEAR (test code = 3267) [facility] URINALYSIS W SPECIFIC ZWVHWND1679-30-73 13:18:00* Test Item Value Reference Range Interpretation [...] POCT U APPEAR (test code = 3267) [facility] URINALYSIS W SPECIFIC ALLYAKM0175-61-26 16:11:00* Test Item Value Reference Range Interpretation [...] POCT U APPEAR (test code = 3267) [facility] MOLECULAR CUEPU1035-76-41 21:11:16* Test Item Value Reference Range Interpretation Comme nts POCT Molecular Strep (test c ode = 97760-9) Negative Negative Lab Interpretation (test cod e = 75189-9) Normal [facility] MOLECULAR QCK1740-87-69 18:40:03* Test Item Value Reference Range Interpretation Comme nts POCT Molecular FluA (test co de = 20438-2) Negative Negative POCT Molecular FluB (test co de = 54691-4) Negative Negative Lab Interpretation (test cod e = 95846-9) Normal [facility] URINALYSIS W SPECIFIC JQWMSNK4171-57-67 18:32:00* Test Item Value Reference Range Interpretation [...] U APPEAR (test code = 3267) clear [facility] URINALYSIS W SPECIFIC VZXSSWU3743-28-79 18:24:00* Test Item Value Reference Range Interpretation [...] U APPEAR (test code = 3267) . [facility] URINALYSIS W SPECIFIC PZFYAAB6417-37-90 13:44:00* Test Item Value Reference Range Interpretation [...] POCT U APPEAR (test code = 3267) [facility] URINALYSIS W SPECIFIC UMRAPKW8088-03-37 20:11:00* Test Item Value Reference Range Interpretation [...] code = 3261) . Negative - Negat saaida POCT U BLD (test code = 3257) Trace Negative - Negati ve POCT U COLOR (test code = 3266) . POCT U APPEAR (test code = 3267) . [facility] URINALYSIS W SPECIFIC VZDIJGS7316-13-15 20:09:00* Test Item Value Reference Range Interpretation [...] POCT U APPEAR (test code = 3267) [facility] UCAU2472-23-53 19:23:00* Test Item Value Reference Range Interpretation Comme nts POCT PREG (test code = 1605) Positive On board controls acceptable with C Line (test code = 3574) Yes POCT PREG LOT # (test code = 3575) POCT PREG TEST DATE ( test code = 3576) [facility] URINALYSIS W/O SPECIFIC KZQDPOZ5841-37-89 19:23:00* Test Item Value Reference Range Interpretation [...] = 3257) Trace Negative - Negati ve [facility] DQUP9280-15-63 20:02:00* Test Item Value Reference Range Interpretation Comme nts POCT PREG (test code = 1605) Negative On board controls acceptable with C Line (test code = 3574) Yes POCT PREG LOT # (test code = 3575) POCT PREG TEST DATE ( test code = 3576) [facility] DMJY0930-17-09 20:02:00* Test Item Value Reference Range Interpretation Comme nts POCT PREG (test code = 1605) Negative On board controls acceptable with C Line (test code = 3574) Yes POCT PREG LOT # (test code = 3575) POCT PREG TEST DATE ( test code = 3576) [facility] VEMT5486-44-14 18:42:00* Test Item Value Reference Range Interpretation Comme nts POCT PREG (test code = 1605) Negative On board controls acceptable with C Line (test code = 3574) Yes POCT PREG LOT # (test code = 3575) POCT PREG TEST DATE ( test code = 3576) [facility] WMWV2391-56-90 18:42:00* Test Item Value Reference Range Interpretation Comme nts POCT PREG (test code = 1605) Negative On board controls acceptable with C Line (test code = 3574) Yes POCT PREG LOT # (test code = 3575) POCT PREG TEST DATE ( test code = 3576) [facility] IGG/RDM8437-14-06 14:53:09* Test Item Value Reference Range Interpretation Comme nts Syphilis IgG/IgM (test code = 62030-7) Non-reactive Non-reactive MINE (test code = MINE) Non-reactive - No serologic evidence of T. pallidum infection. Cannot exclude incubating or early syphilis. Submit a second specimen in 2-4 weeks if syphilis is clinically suspected. Equivocal - Further testing to follow. Reactive - Further testing to follow. Lab Interpretation (test code = 99772-9) Normal [facility] WITH NINOTQ9969-48-20 05:57:16* Test Item Value Reference Range Interpretation Comme nts HIV Semi-quantitative (test code = 43463-3) Negative Negative MINE (test code = MINE) Non-reactive for HIV-1 antigen and HIV-1/HIV-2 antibodies. ?No laboratory evidence of HIV infection. ?Repeat in 2-4 weeks if acute HIV infection is suspected. [facility] EBODRPU8933-87-15 20:10:00* Test Item Value Reference Range Interpretation [...] = 3257) large Negative - Negati ve [facility] History and Physical Notes Date/Time Note Provider Source 2023-10-22 12:38:58 YPpufo11x2+HPNSlEfWc tMgKz6W89fJJfieetsbYNr /Wzr1EafqvC2FC46etzscM5650-04-14O90:38:58F ormatting of this note is different from the original.TRIAGE/L&D HISTORY & PHYSICALIDENTIFYING DATAAngel Leonardo is 28 year old, /White, 39w0d, female with PAUL 10/29/2023, by Last Menstrual Period.: 1995MRN: [id number] Care Physician: PATIENT DOES NOT HAVE A [...] Date/TimeCGB Negative 10/03/2023 11:38 AMGTTLab ResultsComponent Value Date/GsanKNMA8ER 104 (L) 07/27/2023 10:50 AMCBCLab ResultsComponent Value Date/TimeHGB 7.8 (L) 10/03/2023 11:31 AMHCT 28.4 (L) 10/03/2023 11:31 AMPLT 325 10/03/2023 11:31 AMActive Hospital ProblemsDiagnosis Date Noted39 weeks gestation of 10/22/2023Tubal ligation status 3Anemia of mother in , antepartum 01/15/2020Rubella non-immune status, antepartum 10/07/2019Address ppHistory of systemic lupus erythematosus (SLE) 10/04/2019Reports dx in 2016, but did not follow upResolved Hospital ProblemsDiagnosis Date Noted Date Jztjtrrw74 weeks gestation of 04/04/2020 4Present on Admission:History of systemic lupus erythematosus (SLE)Rubella non-immune status, antepartumAnemia of mother in , antepartumTubal ligation status(Resolved) 39 weeks gestation of pdcundkxw54 weeks gestation of pregnancyPlacenta Accreta ScreeningPrior ? : NoPrior Uterine Surgery?: NoPlacenta low lying/previa in current ? : NoScreening outcome:A positive screening outcome indicates a history of prior delivery or prior uterine surgery, AND the presence of either a placenta low lying/previa or ultrasound suspicion of PASD in the current .Negative screening.ASSESSMENT AND PLANAdoalexandria Leonardo is a 28 year old at 39w0d by d/u (13) who presents for IOL.IOL- Patient reports no LOF/VB/CTX. Normal FM.- SVE: 11/09/- Contractions (number / 10 minute): 2Plan- Admit [...] on 10/03/23- PP control plan: [place] B[place] RMCHPFetus- Presentation on admission: cephalic- anterior placenta- EFW: 3134 g, 25%tile- FHT reactive and reassuring- Normal anatomy scan- NT negative, NIPT low risk, MSAFP wnlD/w Dr. Promise Castanon MD ssociated attestation - Jamaica Batista MD - 10/22/2023 3:29 PM CST I was the faculty on L&D on 10/22/[address] and I [address] with Dr. Castanon' assessment and plan.Jamaica Batista MD34117-2History and physical [id number], Faranak1.2.840.304866.1.13.104.2.7.2.69416 3NyovfzKeigwsjJS3720-68-83B18:29:09History and physical noteTXT1.2.840.529608.1.13.104.2.7.2.42662 9|[id number] for patient mkfd70624-7Zqwisvs and physical noteLNNARRATIVEFormatted C-CDA narrative textUT[address] Ih[id number] QTMVCMDODFBLQZZE5224-81-49U80:29:091.2.840 .175551.1.72.3.15|1.2.840.586687.1.13.104. 2.7.2.727879_[id number] [facility] Procedure Notes Date/Time Note Provider Source 2023-10-22 20:01:40 92KFp/MpFSyhAlqDG1t5 5AaxxhUAfMDdjv 8fnHscJMIsp5be7qL65F+EeSliCvh49292 -01-07T20:01:40Associated Order(s): Central Neuraxial Block Central Neuraxial BlockDate/Time: 10/22/2023 8:01 PMPerformed by: Bam Severino, DOAuthorized by: Hortencia Turpin MDPatient Location: OBReason for Block: OB request, Patient request and Labor analgesiaStaff:Anesthesiologist: Hortencia Turpin, MDResident/SMOKE JUMPER SUPERVISOR: Shahnaz, Keyin, MDPerformed by: resident/CRNAPreanesthetic Checklist: patient identified, IV checked, risks and benefits explained, monitors and equipment checked, timeout performed, pre-op evaluation, site marked and anesthesia consentProcedure:Type of Neuraxial: EpiduralEpidural Description: 1st attemptSterility Prep cap, drape, gloves, mask and hand hygieneSedation Level no sedationPatient Position: sittingPrep: Betadine and patient drapedMonitoring: heart rate, continuous pulse ox, heart rate / toco and NIBPLocation: lumbar (1-5)Lumbar: L4-N0Wbwevits: midlineTechnique: catheter and MICHELLE salineGuidance with: landmark technique}Epidural/Spinal [place] and/or Catheter:Epidural/Spinal Kit: BBraunNeedle Type: TuohyNeedle Gauge: 17 GNeedle Length: 3.5 in (8.89 cm)Needle Insertion Depth: 5Catheter Type: multiportCatheter Size: 19 GCatheter at Skin Depth: 10Number of Attempts: 1Test Dose: lidocaine 1.5% with epinephrine 1-to-200,000 and negativeDose: 5 ccCatheter Securement Method: surgical tape, Tegaderm and liquid medical adhesiveAssessment:Procedure Assessment: patient tolerated procedure well with no complicationsNotes:Perpendicular entry 00779-6Tbnqzkwfkelqii procedure cekmZN6836-77-97Q36:02:05Anesthesi ology procedure noteTXT1.2.840.759105.1.13.104.2.7 .2.524130|[id number] for patient fzbn61557-7Ecgjmeyb operation noteLNNARRATIVEFormatted C-CDA narrative oetqJC-NEEQLSVGHLTRNNOL-NMUTHJXGOG [address][id number] 45ACHJWNSGTTJXJZUPNRBUZH2703-78-41 T20:02:051.2.840.047229.1.72.3.15| 1.2.840.842076.1.13.104.2.7.2.7278 79_[id number] AN-ANESTHESIOLOGY [facility] Notes Date/Time Note Provider Source 2023-10-25 10:14:50 MHXsjDIr+uN4jakQ/Rt4ZMfe9IV5H4EpJuiwyB VFGGwfUDOs057EJncsNUGriSww0857-51-79P2 0:14:50 Discharge instructions given to patient verbally [...] Patient will be going home with family. 36907-1Omalz HlufBX7080-68-63L65:15:04Nurse NoteTXT1.2.840.201713.1.13.104.2.7.2.7 43457|[id number] for patient hpbk97266-2PkkaSTVULQXPWZXSiusjaiqy C-CDA narrative [id number] M Gossett RN[address] ZhsdUiwirktwdUjajsfqewMCMR1357484266FY PVBDPJJGJYLSWBRADOCG6069-60-43F55:15:0 41.2.840.388591.1.72.3.15|1.2.840.1143 50.1.13.104.2.7.2.727879_[id number] Irene Dykes RN [facility] 2023-10-25 08:02:49 GFroyazjSU3KkKUF3XPbDnYO/Hj+JPzwKXqva5 URXER3VCnKeJn7jJi9NlicT09Z0544-52-19V9 8:02:49 Problem: Falls, Risk ofGoal: Absence of fallsOutcome: Progressing as expectedProblem: Discharge Planning - PostpartumGoal: Adequate for dischargeOutcome: Progressing as expectedGoal: Mood stableOutcome: Progressing as expectedProblem: Infection RiskGoal: Absence of infectionOutcome: Progressing as expectedProblem: Discharge Planning - PostpartumGoal: Adequate for dischargeOutcome: Progressing as expectedGoal: Mood stableOutcome: Progressing as expectedProblem: Breast-feeding - IneffectiveGoal: Effective breast-feedingOutcome: Progressing as expected 38182-6Kdww of care xnfdKJ7613-33-54J65:02:52Plan of care noteTXT1.2.840.532152.1.13.104.2.7.2.7 31311|[id number] for patient gqcc08995-3QubpACAFOCGINFGWrlxfgfqq C-CDA narrative [id number] XZDHRMUQOSZUBBAKKJVS8610-53-27O78:02:5 21.2.840.187432.1.72.3.15|1.2.840.1143 50.1.13.104.2.7.2.727879_[id number] [facility] 2023-10-25 05:15:36 xEbTgmHc7S/Hfg0UaXzuQCD629+pyksvvuleE0 sOOXc+c2GUi8GugYT+cmWYQQYL8717-10-64G5 5:15:36 Problem: Falls, Risk ofGoal: Absence of fallsOutcome: Progressing as expectedProblem: Discharge Planning - PostpartumGoal: Adequate for dischargeOutcome: Progressing as expectedGoal: Mood stableOutcome: Progressing as expectedProblem: Infection RiskGoal: Absence of infectionOutcome: Progressing as expectedProblem: Discharge Planning - PostpartumGoal: Adequate for dischargeOutcome: Progressing as expectedGoal: Mood stableOutcome: Progressing as expectedProblem: Breast-feeding - IneffectiveGoal: Effective breast-feedingOutcome: Progressing as expected 51456-0Nqxq of care phdtSK9536-36-60U05:15:39Plan of care noteTXT1.2.840.836622.1.13.104.2.7.2.7 54626|0844431337KLUewrelqgc for patient imlh34847-7YkmxJCPBCXSOVSFNmaymiydr C-CDA narrative [id number] Orellana RN[address] [id number] LNQSFFRFOPTPRSHQXNMV9878-16-24P72:15:3 91.2.840.249179.1.72.3.15|1.2.840.1143 50.1.13.104.2.7.2.727879_[id number] Nupur Baig RN [facility] 2023-10-24 15:46:13 X+17QSboNq3niMaNhBnQ+yDddkH4P7FgkGGgkk ojtjtjUYaeqh/JhMJroq1kXylU7985-96-26S0 5:46:13 Problem: Discharge Planning - PostpartumGoal: Adequate for dischargeOutcome: Progressing as expectedGoal: Mood stableOutcome: Progressing as expectedProblem: Discharge Planning - PostpartumGoal: Adequate for dischargeOutcome: Progressing as expectedGoal: Mood stableOutcome: Progressing as expected 17562-7Giky of care ozhcSC2160-42-35H04:46:17Plan of care noteTXT1.2.840.517410.1.13.104.2.7.2.7 87004|9922250254XVCvflsmvmi for patient gxod61186-3QxjcVDUQXOBOYISNyqpezanp C-CDA narrative iosp381965812Dpvillkt Kidd RNUT[id number] TANBDOZWRHOYHCPRLYXA0265-09-31T92:46:1 71.2.840.822888.1.72.3.15|1.2.840.1143 50.1.13.104.2.7.2.727879_[id number] Kyle Christopher MAGANA [facility] 2023-10-24 06:15:21 /uP50dqObHAC4SzNBD95QyqnEynw1o5p728ydT XUelEjveemmARazTXh/H9diqLI2881-95-25J6 6:15:21 Problem: Falls, Risk ofGoal: Absence of fallsOutcome: Progressing as expectedProblem: Discharge Planning - PostpartumGoal: Adequate for dischargeOutcome: Progressing as expectedGoal: Mood stableOutcome: Progressing as expectedProblem: Infection RiskGoal: Absence of infectionOutcome: Progressing as expectedProblem: Discharge Planning - PostpartumGoal: Adequate for dischargeOutcome: Progressing as expectedGoal: Mood stableOutcome: Progressing as expectedProblem: Breast-feeding - IneffectiveGoal: Effective breast-feedingOutcome: Progressing as expected 35485-2Eyhs of care frtbRB3606-57-37U41:15:26Plan of care noteTXT1.2.840.225805.1.13.104.2.7.2.7 47033|2545980309FOPyjsvfyei for patient iwlv26488-0YghySCFRVUHNVHKKsqgmfzdb C-CDA narrative text[address] StreetTXTX7755577555US TNDSANQKKAQGAVPJZBQI9588-11-18B66:15:2 61.2.840.962857.1.72.3.15|1.2.840.1143 50.1.13.104.2.7.2.727879_[id number] [facility] 2023-10-23 16:52:00 QnggBS/XyK4gfVyHedRKJh2rL8S07aBMkVpTnI wJQ3C5cKahlYlbWr/r/fva3eP74516-77-51A2 6:52:00 Images from the original note were not included.This note was copied from a baby's chart. Assessment (most recent) Assessment - 10/23/23 1652General InformationVisit InitialNumber of voids last 24 hours- Infant 2Number of stools last 24 hours- Infant [...] to and beyond 1 year with complimentary foods; hunger cues;On-demand feeds at least 8 or more over 24 hours;Diaper counts/color;Benefits of breastmilk;Benefits of skin to skin contact;Encouraged rooming-in;Waking techniques;Signs of an effective latch;Infant stomach size;Calming techniques;2nd day/growth spurt cluster feeds;Position changes;Breaking seal;LactogenesisHandouts given EnglishLactation Insert Operator ObservationBreastfeeding Reported;Mom states latches well with no painFollow up Mom will call staffRecommended Feeding PlanRecommended feeding plan On-demand , 8-12 times in 24 hours not to exceed 6 hours between feeds;Frequent shbd-zi-melb time with parentsOTHER$ SERVICES Marlene Cyr, MSN, RNC-MNN, IBCLC 44481-9Arshqewkxd GmleUQ6698-32-75A59:12:47Obstetrics NoteTXT1.2.840.268644.1.13.104.2.7.2.7 59767|[id number] for patient ucmq91923-9YeklJYCSTNAXHFSGxfurrgvo C-CDA narrative ktyd799873610Trqjo D Sheffield RN[id number] RQYAOUSPGFAOMFBVDPRV9021-30-03E04:12:4 71.2.840.250897.1.72.3.15|1.2.840.1143 50.1.13.104.2.7.2.727879_[id number] Annika Cyr [facility] 2023-10-23 16:16:01 USyyIimxAZ7nE3SXwYu/U5FD14+mnQHeW1xHu0 elgyf3kEg0fih5g+t0EcEJSU5z3852-50-91J5 6:16:01 Problem: Falls, Risk ofGoal: Absence of fallsOutcome: Progressing as expectedProblem: Discharge Planning - PostpartumGoal: Adequate for dischargeOutcome: Progressing as expectedGoal: Mood stableOutcome: Progressing as expectedProblem: Infection RiskGoal: Absence of infectionOutcome: Progressing as expected 65883-2Bsqb of care shnfDP4204-33-94Q24:16:03Plan of care noteTXT1.2.840.263349.1.13.104.2.7.2.7 43140|[id number] for patient blny05780-5HlwjISYBUPXTAQOXhwpveljp C-CDA narrative [id number] Dang RN[id number] FCSYGZJHPFVJVCHKCGZJ2279-29-79I59:16:0 31.2.840.096749.1.72.3.15|1.2.840.1143 50.1.13.104.2.7.2.727879_[id number] Jovan Dang CHINO [facility] 2023-10-23 08:00:00 ohAu93mCg9CJv63m4Ej7dVo6KIntOa/Hf/DwsG ro0pJxTvr0XwE1GsX6oknbyJNc4031-82-20Y5 8:00:00 BILATERAL TUBAL LIGATION PROCEDURE NOTEDate: 4Preoperative Diagnosis: MPDPSPostoperative Diagnosis: MPDPSProcedure: Modified [place] bilateral tubal ligationSurgeon: MICAELA Alarcon Faculty: Zoya [...] fimbria was visualized. A Ej forcep was replaced at midportion of fallopian tube. The fallopian tube was ligated and resected with Modified [place] technique - [place] clamp was placed on fallopian tube and [...] 0-plain gut sutures times two with Modified [place] technique - Ej clamp was placed on [...] 10/24/2023 8:48 AM CST I was supervising [facility] faculty present for this procedure. I was present for all valdes portions of the procedure. I have attached an additional note if there were special circumstances during this procedure.[id number] Surgical operation [id number], Shannon [id number] aeeyLuscsxzKDI3088-49-07H93:48:08Surge ry Surgical operation noteTXT1.2.840.208959.1.13.104.2.7.2.7 38668|[id number] for patient rivr19108-7SvjpMKSNCTZNHSWIvkxjisum C-CDA narrative text[id number] WGQBPMJSQXWQLZONQYJQ5807-54-58N55:48:0 81.2.840.137004.1.72.3.15|1.2.840.1143 50.1.13.104.2.7.2.727879_[id number] [facility] 2023-10-23 07:48:24 GXeuvqh88oG1ojt16JxORo7NRUlJcOeATb7QOh zJipF6ZHzQrdO7hkT7f8Kj7sS24210-07-40G9 7:48:24 Problem: Intrapartum process (including labor pain)Goal: Absence of or reduction of complications of laborOutcome: ResolvedGoal: Able to cope with painOutcome: ResolvedGoal: Adequate to move to next level of careOutcome: ResolvedGoal: Reduction in pain sensationOutcome: Resolved 72505-0Zmpn of care vbakRQ1146-07-21F79:48:26Plan of care noteTXT1.2.840.298376.1.13.104.2.7.2.7 14393|[id number] for patient xfoe58143-0YfveRTOTKYKFCUKKjsfvgblt C-CDA narrative text[id number] YXOPYKCATEBNOXQYELII9570-21-02V65:48:2 61.2.840.920646.1.72.3.15|1.2.840.1143 50.1.13.104.2.7.2.727879_[id number] [facility] 2023-10-23 06:41:10 I04cdUqHS/pnCeaN8rY88jhbU5xv5HySgQNf6e j/oCTtulfV0VUeS8AJSy0nGhYy6114-94-70O0 6:41:10 Patient: Angel LeonardoProramy SummaryDate: 10/22/23 Room [...] returned to baselineRespiratory status: acceptableHydration status: acceptable 35549-8Oodkkzuirblpns Postoperative evaluation and management eglaWN5809-55-78Z07:41:19Anesthesiolog y Postoperative evaluation and management noteTXT1.2.840.230618.1.13.104.2.7.2.7 53165|[id number] for patient ubed60769-5Pdicbiuv operation noteLNNARRATIVEFormatted C-CDA narrative textAN-ANESTHESIOLOGY ANESTHESIOLOGISTAN-ANESTHESIOLOGY ANESTHESIOLOGISTUT82 Hale StreetSk[id number] BBVOCVZUMFOTUTJPMREP6247-84-48D47:41:1 91.2.840.338364.1.72.3.15|1.2.840.1143 50.1.13.104.2.7.2.727879_[id number] AN-ANESTHESIOLOGY ANESTHESIOLOGIST [facility] 2023-10-23 01:59:47 chPOYT76jW574W8b+j5F32TARZ6zMCw70KrQuW G0TPYvLeqXIm1YjeRLnNAMx1Qe4632-19-30V8 1:59:47 DELIVERY BY SPONTANEOUS VAGINAL DELIVERYDelivery Date: 10/23/2023 Delivery Time: 1:47 AMDelivery SummaryThe patient was admitted to the Labor & Delivery unit for sIOL at 39 weeks.Delivery Physician: Jo Milligan MDTeaching Assist: Miesha Hall MDOB Faculty: LYNNE PEMBERTON, ETIENNEValleywise Health Medical Centerpartum Anesthesia/Analgesia: EpiduralMode of Delivery: Delivery of castellon [...] Minute 5 Minute 10 MinuteApgar Totals: 8 9Christina Sukhdeep Milligan MDObstetrics and Gynecology PGY-1 ssociated attestation - Jamaica Batista MD - 10/23/2023 9:10 AM CST I was present for delivery of a viable . No immediate complications noted. Mom and baby stable to RR.Jamaica Batista MD57057-2Labor and delivery summary [id number], Faranak1.2.840.541937.1.13.104.2.7.2.8 59554TyatnpMdmcuosVD7817-61-14M65:10:1 0Labor and delivery summary noteTXT1.2.840.217997.1.13.104.2.7.2.7 85167|[id number] for patient raos06122-2NgtfTOOCZMTPOZNRjusypiob C-CDA narrative textOG-OBSTETRICS & GYNECOLOGYOG-OBSTETRICS & GYNECOLOGY[address] Zq[id number] IAOYJFQCKHEEQSDYBYJL7763-03-71K99:10:1 01.2.840.905165.1.72.3.15|1..840.1143 50.1.13.104.2.7.2.727879_[id number] -OBSTETRICS & GYNECOLOGY [facility] 2023-10-22 20:57:27 873wZ+MKeHt/YWHqAMWjd6ITpMpWB4zxZthY72 lFt9xQJ4EYvTzBpBO0E3BMH9rp4346-68-92G5 0:57:27 Problem: Intrapartum process (including labor pain)Goal: Absence of or reduction of complications of laborOutcome: Progressing as expectedGoal: Able to cope with painOutcome: Progressing as expectedGoal: Adequate to move to next level of careOutcome: Progressing as expectedGoal: Reduction in pain sensationOutcome: Progressing as expectedProblem: Falls, Risk ofGoal: Absence of fallsOutcome: Progressing as expected 79365-2Mpqy of care gyhpBD5906-97-65I09:57:30Plan of care noteTXT1.2.840.797931.1.13.104.2.7.2.7 79062|[id number] for patient ikew18155-1KewzTMURYMDWROVTznhuxjrf C-CDA narrative textUT[address] Tbui[id number] ESWBAHYFYTYMKNPQERCG5793-03-24H42:57:3 01..840.510532.1.72.3.15|1..840.1143 50.1.13.104.2.7.2.727879_[id number] [facility] 2023-10-22 20:45:38 rmnDAavV6BFF1DKXSx1AbvbhJkxsHTrt5J7XIl D7vf2LnW8pRmA7tnVTuOV78Q7b6167-63-92A1 0:45:38 Intrapartum Progress Note10/22/2023 8:45 PMSubjective: Patient [...] Leonardo is a 28 year old at 21h9cEV Assessment: IOL, MPDPS, asthmaOB Plan: s/p FB, Pit@1500Additional Comments/Detail: AROM moderate clear fluid. Pt comfortable with epidural.Ripening Agent: Bales bulbIntrapartum Plan: [place] [address]-6Goajqukw ldxvCM9257-19-18N69:45:42Progress noteTXT1.2.840.670333.1.13.104.2.7.2.7 84360|[id number] for patient sipo35666-7MgvqPDBRTBDKTQJNyroiuxrw C-CDA narrative textOG-OBSTETRICS & GYNECOLOGYOG-OBSTETRICS & GYNECOLOGY[address] Ja[id number] OQPPXYWEEHPBFMYXTLHE6240-10-63I47:45:4 21.2.840.715904.1.72.3.15|1.2.840.1143 50.1.13.104.2.7.2.727879_[id number] -OBSTETRICS & GYNECOLOGY [facility] 2023-10-22 20:02:13 /Q63lV3ukgoVJXenScUQEEDZTNr3STfN2YfQk1 YoS6K5x706GAKQ8lV9b2kaYqfu0699-60-26R8 0:02:13 Name/ MRN / Age / Gender:Angel Leonardo, [id number] year old femaleBMI:Estimated body mass index is [...] surgeons listed *Procedure: CENTRAL NEURAXIAL BLOCKOR Location: [facility] OUT [facility] OR - OR LOCATIONAnesthesia Preop Eval (physical exam)Anesthesia Preop: Ymbq-bc-TvzhLDW Status VerifiedClear Liquids: > 2 HoursSolid Food/Non-Clear [...] 325 on 10/03/23- PP control plan: desires [facility]- Presentation on admission: cephalic- anterior placenta- EFW: 3134 g, 25%tile- FHT reactive and reassuring- Normal anatomy scan- NT negative, NIPT low risk, MSAFP wnlPediatricNeonatalPreoperative Medication InstructionsContinue taking all prescribed medications except:EMANI inhibitors, ARBs, diuretics, all oral diabetes medicationsAnticoagulant Therapy: Defer to surgeonsInsulin: Take 1/2 dose the night prior to surgery. Hold on DOS.Phentermine: Alert [facility] anesthesiologistSGLT2 Inhibitors: "gliflozins" to be held [...] routine analgesia & antiemeticsRecovery Plan: LDRAdditional comments: 19043-0Tjiqwxawlszagr Preoperative evaluation and management dzilTC6308-31-69E97:47:00Anesthesiolog y Preoperative evaluation and management noteTXT1..840.386364.1.13.104.2.7.2.7 57144|[id number] for patient ttpc79719-4Rxbhxfwn operation noteLNNARRATIVEFormatted C-CDA narrative textUT82 Hale StreetLj[id number] QCOXUYIXXHESMBQXMAUN6664-71-40J55:47:0 01.840.626182.1.72.3.15|1.2.840.1143 50.1.13.104.2.7.2.727879_[id number] [facility] 2023-10-22 18:51:28 l/8tWjrhFe9mW1mYTScswbjfBsfnlEkcwmd4VU L/6hOJzE6r4xg7SF9/r8yEcb1D8740-60-02X4 8:51:28 Problem: Intrapartum process (including labor pain)Goal: Absence of or reduction of complications of laborOutcome: Progressing as expectedGoal: Able to cope with painOutcome: Progressing as expectedGoal: Adequate to move to next level of careOutcome: Progressing as expectedGoal: Reduction in pain sensationOutcome: Progressing as expected 79362-5Qouu of care ardsFI1153-53-86Q34:51:32Plan of care noteTXT1.2.840.232032.1.13.104.2.7.2.7 84534|[id number] for patient ldwi91953-2WmgpBTKFDEBQQTZOsqthafic C-CDA narrative [id number] Bland RN[id number] RXYQPGVTRGWNMAYHNMAP6476-18-38U92:51:3 21.2.840.419344.1.72.3.15|1.2.840.1143 50.1.13.104.2.7.2.727879_[id number] Lissette Davis RN [facility] 2023-10-05 09:18:46 ndKQIUFhgxbWmGkXLELETVcMH1+rfI20OX4DCu V5EzzMLL4wBbHSVw7nvWQEQMpf5354-35-52C7 9:18:46 Patient informed of results and importance of taking the iron supplement. 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 36949-1Jnhpcqquj encounter UdjmXN9584-12-18G41:20:53Telephone encounter NoteTXT1.2.840.644378.1.13.104.2.7.2.7 30510|[id number] for patient gbhm51661-9BofyNXZPMPMQCPMPjlumsszy C-CDA narrative textUTMB[id number] VZGNPLQREIEMHXDZGAVJ9182-40-07C96:20:5 31.2.840.677298.1.72.3.15|1.2.840.1143 50.1.13.104.2.7.2.727879_[id number] [facility] 2023-10-05 09:15:20 Ob20GiHI3kMNxENG5ITe7EFaOLLsuqCV2mwd8s LHJ4NARpZiB9jhLT8Or+j/pgMW4538-74-50A2 9:15:20 Pt returning call, please call back [phone] (home) 75544-7Qpflklgpy encounter StqsBC6070-62-06F54:15:49Telephone encounter NoteTXT1.2.840.274840.1.13.104.2.7.2.7 83266|[id number] for patient jdzh16750-4DyjtCQTIEBKESUZYvgrnfdqb C-CDA narrative ocfr4026239QV [id number] NZGCKYMEGAOQEZLEODLR7590-15-37P36:15:4 91.2.840.680218.1.72.3.15|1.2.840.1143 50.1.13.104.2.7.2.727879_[id number] BLAKE Rincon [facility] 2023-10-05 08:28:22 W4FvC5VCJg2/2tidP9FKJA2M/FV5Q/obpGOtoY RHGTAikqPfSlQ0svbmas3R8TSw0411-30-66X0 8:28:22 Attempted to call patient, no answer, [place]. 76712-5Cwyrhhgqz encounter FexfWR4196-69-90J59:28:52Telephone encounter NoteTXT1.2.840.671964.1.13.104.2.7.2.7 49317|[id number] for patient wsyz78232-5OnssEFMPTXDYPGYRqdilwnuo C-CDA narrative [id number] YXSNUVCATODYOZJCZOEF5240-00-82Y78:28:5 21.2.840.666865.1.72.3.15|1.2.840.1143 50.1.13.104.2.7.2.727879_[id number] [facility] 2023-10-05 07:27:01 xv4l6HEuMb/Mk7PKcRCv5MGu12mvTP2dmh4fzR pkMJNLj84N1c0XYvpl6Ltstnny3427-81-51J8 7:27:01 Please call patient and let her [...] but she will need to go to [place] 3 days in row for any effect. 72103-5Zenwstcdj encounter YlgsUX2023-89-97L95:30:32Telephone encounter NoteTXT1.2.840.242995.1.13.104.2.7.2.7 29586|[id number] for patient owig97213-4HlthCXDAFWPJOOJNygcktapn C-CDA narrative text[id number] INIVBDXDSBAKZVFQOYBR8566-96-94A95:30:3 21.2.840.800627.1.72.3.15|1.2.840.1143 50.1.13.104.2.7.2.727879_[id number] [facility] 2023-06-15 10:02:39 d7jKV8tS1CGlBBOlZP/X1dsIBwmqB69dDzTbrS k5/mr+vhXK/G1BpY7RzvaOF5521314-88-22P8 0:02:39 Advised patient she can still be seen in clinic and can be tested for symptoms, verbalized understanding. 82305-4Rmurdnydv encounter QgrkIG2906-04-70W55:03:21Telephone encounter NoteTXT1.2.840.209961.1.13.104.2.7.2.7 48120|[id number] for patient sufp73885-4NmrrQFEGZEEXJQ[address] FfcgNtvbjgdqwZkheuhdsmDAWV7135114858GT ZGMDPQYUIYOHQOHNWSVN4339-10-85O85:03:2 11.2.840.845060.1.72.3.15|1.2.840.1143 50.1.13.104.2.7.2.727879_[id number] [facility] 2023-06-15 09:48:15 f/FtKIWku73hZ9ieXkJ7JSKLMWQJkDE6d5BF0Z 6SY6ssJ8E1yd0tz4ueFbZOnDKp2990-38-13H0 9:48:15 This patient called to reschedule her appt with High Risk due to having symptoms of:Cough, sore throat and stuffy nose.Please call patient to let her know what over the counter medications she can have while . 11196-6Fwqisrdco encounter QrnlPJ0521-86-49Z96:50:17Telephone encounter NoteTXT1.2.840.087138.1.13.104.2.7.2.7 19817|[id number] for patient hvap53307-7QxtdTM368962082Rhokz L [id number] AFDHLXLQYBAZMZNNWZRH9471-05-26F26:50:1 71.2.840.464665.1.72.3.15|1.2.840.1143 50.1.13.104.2.7.2.727879_[id number] Xiomara Georges [facility]
--- NOTE | 2023-12-27 05:44 | EDPHYS ---
Physician Documentation [facility] Name: Angel Leonardo Age: 28 yrs Sex: Female : 1995 Arrival Date: 12/27/2023 Time: 04:55 Bed IW1 Private MD: ED Physician Richard Adams HPI: 12/26 05:38 This 28 yrs old Female presents to ER via Ambulatory with complaints of Cough. sp4 05:50 Patient presents with 1 week of cough associated with yellow sputum. 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 - Social history:: Smoking status: Reported history of juuling and/or vaping. Patient uses alcohol, occasionally. Patient/guardian denies using street drugs. - Family history:: not pertinent. ROS: 05:50 Constitutional: Negative for fever, chills, and weight loss, positive cough positive sp4 yellow sputum 05:50 All other systems are negative, Exam: 05:50 Constitutional: This is a well developed, well nourished patient who is awake, alert, sp4 and in no acute distress. Head/Face: Normocephalic, atraumatic. Eyes: Pupils equal round and reactive to light, extra-ocular motions intact. Lids and lashes normal. Conjunctiva and sclera are not injected. Cornea within normal limits. Periorbital areas with no swelling, redness, or edema. ENT: Nares patent. No nasal discharge, no septal abnormalities noted. Tympanic membranes are normal and external auditory canals are clear. Oropharynx with no redness, swelling, or masses, exudates, or evidence of obstruction, uvula midline. Mucous membranes moist. Neck: Trachea midline, no thyromegaly or masses palpated, and no cervical lymphadenopathy. Supple, full range of motion without nuchal rigidity, or vertebral point tenderness. Chest/axilla: Normal chest wall appearance and motion. Nontender with no deformity. No lesions are appreciated. Cardiovascular: Regular rate and rhythm with a normal S1 and S2. No gallops, murmurs, or rubs. Normal PMI, no JVD. No pulse deficits. Respiratory: Lungs have equal breath sounds bilaterally, clear to auscultation and percussion. No rales, rhonchi or wheezes noted. No increased work of breathing, no retractions or nasal flaring. Abdomen/GI: Soft, with normal bowel sounds. No distension or tympany. No guarding or rebound. No evidence of tenderness throughout. Back: No spinal tenderness. No costovertebral tenderness. Skin: Warm, dry with normal turgor. Normal color with no rashes, no lesions, and no evidence of cellulitis. MS/ Extremity: Pulses equal, no cyanosis. Neurovascular intact. Full, normal range of motion. Neuro: Awake and alert, GCS 15, oriented to person, place, time, and situation. Cranial nerves II-XII grossly intact. Motor strength 5/5 in all extremities. Sensory grossly intact. Psych: Awake, alert, with orientation to person, place and time. Behavior, mood, and affect are within normal limits Vital Signs: 05:17 BP 124 / 85; Pulse 72; Resp 16 S; Temp 97.1(TE); Pulse Ox 100% on R/A; Weight 72.57 kg lg3 (R); Height 5 ft. 7 in. (R); 05:50 BP 124 / 81; Pulse 74; Resp 16 S; Temp 97.2(TE); Pulse Ox 100% on R/A; lg3 05:17 Body Mass Index 25.06 (72.57 kg, 170.18 cm) lg3 Easton Coma Score: 05:50 Eye Response: spontaneous(4). Motor Response: obeys commands(6). Verbal Response: sp4 oriented(5). Total: 15. MDM: 05:44 Patient medically screened. sp4 05:50 Differential Diagnosis: Bronchitis Influenza Upper Respiratory Infection Sinusitis sp4 Pharyngitis Otitis Media. Data reviewed: vital signs, nurses notes. Consideration of Admission/Observation Escalation of care including admission/observation considered. ED course: Patient will be discharged home with p.o. Zithromax for the next 5 days also cough suppressant. Otherwise stable to go home. Administered Medications: 05:48 Drug: Ondansetron PO 4 mg PO once Route: PO; lg3 05:49 Follow up: Response: No adverse reaction lg3 05:49 Drug: AZITHromycin PO 500 mg PO once Route: PO; lg3 05:49 Follow up: Response: No adverse reaction lg3 05:49 Drug: Dextromethorphan-Guaifenesin PO Liquid 10 mg-100 mg/5 mL 10 ml PO once Route: PO; lg3 05:49 Follow up: Response: No adverse reaction lg3 05:49 Drug: Ibuprofen PO 800 mg PO once Route: PO; lg3 05:49 Follow up: Response: No adverse reaction lg3 Disposition Summary: 12/27/23 05:44 Discharge Ordered Notes: Location: Home sp4 Problem: new sp4 Symptoms: have improved sp4 Condition: Stable sp4 Diagnosis - Acute bronchitis, unspecified sp4 Followup: sp4 - With: Private Physician - When: 7 - 10 days - Reason: Recheck today's complaints Discharge Instructions: - Discharge Summary Sheet sp4 - Acute Bronchitis, Adult sp4 Forms: - Patient Portal Instructions sp4 Prescriptions: - dextromethorphan-guaifenesin 10-200 mg Oral capsule - take 2 capsule ORAL route every 6 hours PRN cough; 42 capsule; Refills: 0, sp4 Product Selection Permitted - Ibuprofen 800 mg Oral Tablet - take 1 tablet ORAL route every 8 hours As needed take with food; 30 tablet; sp4 Refills: 0, Product Selection Permitted - Zithromax Z-Oliverio 250 mg Oral Tablet - take 1 tablet ORAL route as directed for 5 days Day 1 - take two (2) tablets sp4 one time. Day 2, 3, 4 , 5 take one (1) tablet once daily.; 6 tablet; Refills: 0, Product Selection Permitted Signatures: Pamela Ayala RN RN lg3 Richard Adams MD MD sp4
--- NOTE | 2023-12-27 05:44 | ER ---
Nurse's Notes [facility] Name: Angel Leonardo Age: 28 yrs Sex: Female : 1995 Arrival Date: 12/27/2023 Time: 04:55 Bed IW1 Private MD: Diagnosis: Acute bronchitis, unspecified Presentation: 12/26 05:17 Chief complaint: Patient states: cough X1 week with thick phlegm, mainly in the lg3 morning. im taking Mucinex and Tylenol cold and flu with no relief. Coronavirus screen: Client denies travel out of the [place] in the last 14 days. Client presents with at least one sign or symptom that may indicate coronavirus-19. Standard/surgical mask placed on the client. Ebola Screen: No symptoms or risks identified at this time. Initial Sepsis Screen: Does the patient meet any 2 criteria? No. Patient's initial sepsis screen is negative. Does the patient have a suspected source of infection? No. Patient's initial sepsis screen is negative. Risk Assessment: Do you want to hurt yourself or someone else? Patient reports no desire to harm self or others. Onset of symptoms is unknown. 05:17 Method Of Arrival: Ambulatory lg3 05:17 Acuity: AURELIO 4 lg3 Triage Assessment: 05:19 General: Appears in no apparent distress. comfortable, Behavior is calm, cooperative. lg3 Pain: Denies pain. EENT: No deficits noted. Reports nasal congestion nasal discharge. Neuro: No deficits noted. Noriega Agitation-Sedation Scale (RASS): 0 - Alert and Calm Level of Consciousness is awake, alert, obeys commands, Oriented to person, place, time, situation. Cardiovascular: No deficits noted. Denies chest pain, shortness of breath, Capillary refill < 3 seconds Clubbing of nail beds is absent JVD is absent Patient's skin is warm and dry. Respiratory: Reports cough that is productive, persistent Airway is patent Respiratory effort is even, unlabored, Respiratory pattern is regular, symmetrical, Breath sounds are clear bilaterally. GI: No deficits noted. No signs and/or symptoms were reported involving the gastrointestinal system. Abdomen is round non-distended. : No deficits noted. No signs and/or symptoms were reported regarding the genitourinary system. Derm: No deficits noted. No signs and/or symptoms reported regarding the dermatologic system. Skin is intact, is healthy with good turgor, Skin is dry, Skin is normal, Skin temperature is warm. Musculoskeletal: No deficits noted. No signs and/or symptoms reported regarding the musculoskeletal system. Circulation, motion, and sensation intact. Range of motion: intact in all extremities. 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 - Social history:: Smoking status: Reported history of juuling and/or vaping. Patient uses alcohol, occasionally. Patient/guardian denies using street drugs. - Family history:: not pertinent. Screenin:22 [facility] ED Fall Risk Assessment (Adult) History of falling in the last 3 months, lg3 including since admission No falls in past 3 months (0 pts). Abuse screen: Denies threats or abuse. Denies injuries from another. Nutritional screening: No deficits noted. Tuberculosis screening: No symptoms or risk factors identified. Assessment: 05:22 General: see triage assessment. lg3 05:49 Reassessment: Patient appears in no apparent distress at this time. No changes from lg3 previously documented assessment. Patient and/or family updated on plan of care and expected duration. Pain level reassessed. Patient is alert, oriented x 3, equal unlabored respirations, skin warm/dry/pink. Vital Signs: 05:17 BP 124 / 85; Pulse 72; Resp 16 S; Temp 97.1(TE); Pulse Ox 100% on R/A; Weight 72.57 kg lg3 (R); Height 5 ft. 7 in. (R); 05:50 BP 124 / 81; Pulse 74; Resp 16 S; Temp 97.2(TE); Pulse Ox 100% on R/A; lg3 05:17 Body Mass Index 25.06 (72.57 kg, 170.18 cm) lg3 Magdalena Coma Score: 05:50 Eye Response: spontaneous(4). Motor Response: obeys commands(6). Verbal Response: sp4 oriented(5). Total: 15. ED Course: 04:57 Patient arrived in ED. jj6 05:19 Triage completed. lg3 05:19 Arm band placed on right wrist. lg3 05:22 Patient has correct armband on for positive identification. lg3 05:22 Patient maintains SpO2 saturation greater than 95% on room air. lg3 05:38 Richard Adams MD is Attending Physician. sp4 05:48 Pamela Ayala RN is Primary Nurse. lg3 05:49 No provider procedures requiring assistance completed. Patient did not have IV access lg3 during this emergency room visit. Administered Medications: 05:48 Drug: Ondansetron PO 4 mg PO once Route: PO; lg3 05:49 Follow up: Response: No adverse reaction lg3 05:49 Drug: AZITHromycin PO 500 mg PO once Route: PO; lg3 05:49 Follow up: Response: No adverse reaction lg3 05:49 Drug: Dextromethorphan-Guaifenesin PO Liquid 10 mg-100 mg/5 mL 10 ml PO once Route: PO; lg3 05:49 Follow up: Response: No adverse reaction lg3 05:49 Drug: Ibuprofen PO 800 mg PO once Route: PO; lg3 05:49 Follow up: Response: No adverse reaction lg3 Medication: 05:22 VIS not applicable for this client. lg3 Outcome: 05:44 Discharge ordered by . sp4 05:52 Discharged to home ambulatory, lg3 05:52 Condition: stable 05:52 Discharge instructions given to patient, Instructed on discharge instructions, follow up and referral plans. medication usage, Demonstrated understanding of instructions, follow-up care, medications, Prescriptions given X 3, 05:52 Patient left the ED. lg3 Signatures: Pamela Ayala RN RN marlin3 Venus Garcia jj6 Richard Adams MD MD sp4
[2023-12-27 06:05] VITALS: BP 124/81; TEMP 97.2; O2SAT 100
== END ==
LOC: ER 04:55
DX: J20.9 Acute bronchitis, unspecified (principal)
CPT/HCPCS: Q0162

== ENCOUNTER 2024-01-11 18:53 | Emergency (ER) | payer OTHER ==
--- OUTSIDE RECORDS SUMMARY | 2024-01-11 19:01 | XMS REPORT | Continuity of Care Document ---
Author Name Unknown Address [address] [place] [address] [facility] thconnect Address [address] [place] [address] Care Team Providers Care Strategic Manager Name Role Phone Pcp, Patient Does Not Have A Primary Care Physic negrito LARA TABARES Attending Clinician Unavail able Lara Alfonso Attending Clinician + JAMAICA BATISTA Attending Clinician Unavailable Jamaica Batista MD Attending Clinician [phone] Zoya Marcos MD Attending Clinician [phone] Bam Severino DO Attending Clinician [phone] Hortencia Turpin MD Attending Clinician [phone] BERYL FAGAN Attending Clinician Unavailable ZULAY TODD Attending Clinician UnavailZulay Welch CNM Attending Clinician [phone] Doctor Unassigned, Speed Attending Clinician U navailANGELITA Gilbert Attending Clinician Unavailable Jordan Peace-Np/High Attending Clinician Unav ailable Angelita Ramos Attending Clinician ProviderJordan Temp Attending Clinician Alisha Francie Yan NP Attending Clinician [phone] THAO MCNEIL Attending Clinician Unamelvina ailignacio Ultrasound, [facility] Attending Clinician UnavailThao Hope MD Attending Clinician + Madyson Lynn Attending Clinician [phone] Lab, [facility] Attending Clinician Unavailable 1, [facility] Attending Clinician Unavailab Margie Magana Attending Clinician Unavailabl e Dallin, [facility] Attending Clinician Unavailable MARGIE MARISCAL Attending Clinician Unavailable Margie Mariscal MD Attending Clinician [phone] JOVAN REYNA Attending Clinician Unavailabl JOVAN Costa Attending Clinician Unavailabl yamilex SWAIN, Jovan Vizcaino Attending Clinician [phone] JOVAN CRUZ Attending Clinician Unavailabl e Carlene, [facility] Nurse Attending Clinician Unava Benjamin Andrade DO Attending Clinician [phone] Jovana Bob Attending Clinician + [phone] JOVANA HUGO Attending Clinician Unavailab Adriana Diaz MD Attending Clinician + Dank Benito MD Attending Clinician [phone] Venus Mack Attending Clinician + [phone] JAMAICA BATISTA Admitting Clinician Unavailable Jamaica Batista MD Admitting Clinician [phone] Adriana Sanabria MD Admitting Clinician + Payers Payer Name Policy Type Policy Number Effective Date Expirati on Date Source [facility] [id number] 2019 00:00:00 Problems Condition Name Condition Details Condition Category Status Onset Date Resolution Date Last Treatment Date Treating Clinician Comments Source Well woman exam Well woman exam Disease Active 12-18 00:00: 00 [facility] Over weight Over weight Disease Active 12-18 00:00: 00 [facility] 39 weeks gestation of 39 weeks gestation of Disease Active 0 1-07 00:00: 00 [facility] History of tubal ligation History of tubal ligation Disease Active 2022-10 2-14 00:00: 00 [facility] Heartburn during in third trimester Heartburn during in third trimester Disease Active 2022-10 1-14 00:00: 00 [facility] History of asthma History of asthma Disease Active 0 7-21 00:00: 00 [facility] Nausea and vomiting during Nausea and vomiting during Disease Active 0 5-16 00:00: 00 [facility] Well woman exam Well woman exam Disease Active 2021-10 2-27 00:00: 00 [facility] Iron deficiency anemia Iron deficiency anemia Disease Active 2021-10 1-10 00:00: 00 [facility] Oral contracept saadia pill surveillan ce Oral contracept saadia pill surveillan ce Disease Active 2021-10 1-10 00:00: 00 [facility] Declines flu vaccine Declines flu vaccine Disease Active 2020-0 8-03 00:00: 00 [facility] Need for HPV vaccine Need for HPV vaccine Disease Active 2020-0 8-03 00:00: 00 [facility] Anemia, Anemia, Disease Active 2020-0 6-21 00:00: 00 [facility] (normal spontaneou s vaginal delivery) (normal spontaneou s vaginal delivery) Disease Active 2020-0 6-21 00:00: 00 [facility] Single live Single live Disease Active 2020-0 6-21 00:00: 00 [facility] Anemia of mother in , antepartum Anemia of mother in , antepartum Disease Active 2020-0 4-01 00:00: 00 [facility] Cramping affecting , antepartum Cramping affecting , antepartum Disease Active 2020-0 3-03 00:00: 00 [facility] Pain of round ligament during Pain of round ligament during Disease Active 2020-0 3-03 00:00: 00 [facility] Rubella non-immune status, antepartum Rubella non-immune status, antepartum Disease Active 2018-10 00:00: 00 Overview: Formattin g of this note might be different from the original. Address pp [facility] History of systemic lupus erythemato sharmaine (SLE) History of systemic lupus erythemato sharmaine (SLE) Disease Active 2018-10 00:00: 00 Overview: Formattin g of this note might be different from the original. Reports dx in 2016, but did not follow up [facility] History of lupus History of lupus Disease Active 2018-10 00:00: 00 Overview: Formattin g of this note might be different from the original. Reports dx in 2015, but did not follow up [facility] History of depression History of depression Disease Active 02-22 00:00: 00 [facility] Allergies, Adverse Reactions, Alerts Allergy Name Allergy Type Status Severity Reaction(s) Onset Date Inactive Date Treating Clinician Comments Source NO KNOWN ALLERGIE S Drug Class Active [facility] Social History Social Habit Start Date Stop Date Quantity Comments Source ASSERTION 2023-02-05 00:00:00 [facility] History of tobacco use Cigarette Smoker [facility] Gender identity [facility] Sexual orientation [facility] History SDOH Alcohol Frequency [facility] History SDOH Alcohol Std Drinks [facility] History SDOH Alcohol Binge [facility] History of Social function 2023-12-19 00:00:00 2023-12-19 00:00:00 [facility] Alcohol intake 2023-12-19 00:00:00 2023-12-19 00:00:00 Ex-drinker (finding) [facility] Exposure to SARS-CoV-2 (event) 2023-02-18 00:00:00 2023-02-28 14:24:00 Not sure [facility] Tobacco Comment 2023-02-28 00:00:00 2023-02-28 00:00:00 Stopped for . Not an everyday smoker, only social. [facility] Tobacco use and exposure 2023-02-28 00:00:00 2023-02-28 00:00:00 Smokeless tobacco non-user [facility] Alcohol Comment 2017-02-22 00:00:00 2017-02-22 00:00:00 occasionally [facility] Sex Assigned At 1995 00:00:00 1995 00:00:00 [facility] Smoking Status Start Date Stop Date Source Ex-smoker 2023-02-28 00:00:00 [facility]23[facility] Medications Ordered Medication Name Filled Medication Name Start Date Stop Date Current Medication? Ordering Clinician Indication Dosage Frequency Signature (SIG) Comments Components Source levonorgest rel-ethinyl estradiol (SRONYX) 0.1-20 mg-mcg per tablet 12-18 00:00: 00 Yes [id number] 1{tbl} Take 1 tablet by mouth in the morning. [facility] levonorgest rel-ethinyl estradiol (SRONYX) 0.1-20 mg-mcg per tablet 12-18 00:00: 00 Yes [id number] 1{tbl} Take 1 tablet by mouth in the morning. [facility] levonorgest rel-ethinyl estradiol (SRONYX) 0.1-20 mg-mcg per tablet 12-18 00:00: 00 Yes [id number] 1{tbl} Take 1 tablet by mouth in the morning. [facility] vitamin w/FA tablet 10-25 00:00: 00 Yes [id number] 1{tbl} Take 1 tablet by mouth in the morning. [facility] docusate 100 mg capsule 10-25 00:00: 00 Yes [id number] 200mg Take 2 capsules by mouth once daily as needed for Constipati on. [facility] ferrous sulfate 325 mg (65 mg iron) tablet 10-25 00:00: 00 Yes [id number] 325mg Take 1 tablet by mouth in the morning and 1 tablet in the evening. [facility] ibuprofen 600 mg tablet 10-25 00:00: 00 Yes [id number] 600mg Take 1 tablet by mouth every 6 (six) hours as needed (Pain). Take with food or milk. [facility] vitamin w/FA tablet 2023-0 10-25 00:00: 00 Yes [id number] 1{tbl} Take 1 tablet by mouth in the morning. [facility] docusate 100 mg capsule 0 10-25 00:00: 00 Yes [id number] 200mg Take 2 capsules by mouth once daily as needed for Constipati on. [facility] ferrous sulfate 325 mg (65 mg iron) tablet 0 10-25 00:00: 00 Yes [id number] 325mg Take 1 tablet by mouth in the morning and 1 tablet in the evening. [facility] ibuprofen 600 mg tablet 10-25 00:00: 00 Yes [id number] 600mg Take 1 tablet by mouth every 6 (six) hours as needed (Pain). Take with food or milk. [facility] vitamin w/FA tablet 10-25 00:00: 00 Yes [id number] 1{tbl} Take 1 tablet by mouth in the morning. [facility] docusate 100 mg capsule 10-25 00:00: 00 Yes [id number] 200mg Take 2 capsules by mouth once daily as needed for Constipati on. [facility] ferrous sulfate 325 mg (65 mg iron) tablet 0 10-25 00:00: 00 Yes [id number] 325mg Take 1 tablet by mouth in the morning and 1 tablet in the evening. [facility] ibuprofen 600 mg tablet 2023-0 10-25 00:00: 00 Yes [id number] 600mg Take 1 tablet by mouth every 6 (six) hours as needed (Pain). Take with food or milk. [facility] ferrous sulfate 325 mg (65 mg iron) tablet 2023-0 10-25 00:00: 00 Yes [id number] 325mg Take 1 tablet by mouth in the morning and 1 tablet in the evening. [facility] ibuprofen 600 mg tablet 2023-0 10-25 00:00: 00 Yes [id number] 600mg Take 1 tablet by mouth every 6 (six) hours as needed (Pain). Take with food or milk. [facility] ferrous sulfate 325 mg (65 mg iron) tablet 10-25 00:00: 00 Yes [id number] 325mg Take 1 tablet by mouth in the morning and 1 tablet in the evening. [facility] ibuprofen 600 mg tablet 10-25 00:00: 00 Yes [id number] 600mg Take 1 tablet by mouth every 6 (six) hours as needed (Pain). Take with food or milk. [facility] ferrous sulfate 325 mg (65 mg iron) tablet 10-25 00:00: 00 Yes [id number] 325mg Take 1 tablet by mouth in the morning and 1 tablet in the evening. [facility] ibuprofen 600 mg tablet 10-25 00:00: 00 Yes [id number] 600mg Take 1 tablet by mouth every 6 (six) hours as needed (Pain). Take with food or milk. [facility] vitamin w/FA tablet 10-25 00:00: 00 12-18 00:00 :00 No [id number] 1{tbl} Take 1 tablet by mouth in the morning. [facility] docusate 100 mg capsule 10-25 00:00: 00 12-18 00:00 :00 No [id number] 200mg Take 2 capsules by mouth once daily as needed for Constipati on. [facility] vitamin w/FA tablet 10-25 00:00: 00 12-18 00:00 :00 No [id number] 1{tbl} Take 1 tablet by mouth in the morning. [facility] docusate 100 mg capsule 2023-10-25 00:00: 00 12-18 00:00 :00 No [id number] 200mg Take 2 capsules by mouth once daily as needed for Constipati on. [facility] vitamin w/FA tablet 2023-0 10 00:00: 00 12-18 00:00 :00 No [id number] 1{tbl} Take 1 tablet by mouth in the morning. [facility] docusate 100 mg capsule 10-25 00:00: 00 12-18 00:00 :00 No [id number] 200mg Take 2 capsules by mouth once daily as needed for Constipati on. [facility] sodium citrate-cit lita acid (BICITRA) 500-334 mg/5 mL solution 30 mL 10-23 14:45: 00 10-23 14:01 :00 No 30mL 30 mL, Oral, ONCE, 1 dose, On Mon10/23/23 at 0845, Routine [facility] ketorolac (TORADOL) injection 15 mg 10-23 14:44: 32 10-28 05:59 :00 Yes 15mg 15 mg, Slow IV Push, Q6HPRN, 4 doses, Starting on Mon10/23/23 at 0844, Until Mon10/27/23 at 2359, Routine, Pain (scale 1-3) [facility] ketorolac (TORADOL) injection 15 mg 10-23 14:44: 32 10-28 05:59 :00 Yes 15mg 15 mg, Slow IV Push, Q6HPRN, 4 doses, Starting on Mon10/23/23 at 0844, Until Mon10/27/23 at 2359, Routine, Pain (scale 1-3) [facility] naloxone (NARCAN) injection 0.2 mg 10-23 14:43: 29 Yes .2mg 0.2 mg, Intramuscu lar, Q3HPRN, Starting on Mon10/23/23 at 0843, Until Discontinu ed, Routine, Itching [facility] diphenhydrA MINE (BENADRYL) tablet 25 mg 10-23 14:43: 29 Yes 25mg 25 mg, Oral, Q4HPRN, Starting on Mon10/23/23 at 0843, Until Discontinu ed, Routine, Itching [facility] naloxone (NARCAN) injection 0.2 mg 10-23 14:43: 29 Yes .2mg 0.2 mg, Intramuscu lar, Q3HPRN, Starting on Mon10/23/23 at 0843, Until Discontinu ed, Routine, Itching [facility] diphenhydrA MINE (BENADRYL) tablet 25 mg 10-23 14:43: 29 Yes 25mg 25 mg, Oral, Q4HPRN, Starting on Mon10/23/23 at 0843, Until Discontinu ed, Routine, Itching [facility] naloxone (NARCAN) injection 0.4 mg 10-23 14:43: 29 10-25 14:42 :29 Yes .4mg 0.4 mg, Slow IV Push, PRN - SEE INSTRUCTIO NS, Starting on Mon10/23/23 at 0843, Until Mon10/25/23 at 0842, Routine, Sedation/R espiratory Depression , Analgesia recovery [facility] HYDROcodone -acetaminop hen (NORCO 5) 5-325 mg tablet 2 tablet 10-23 14:06: 16 Yes 2{tbl} 2 tablet, Oral, Q6HPRN, Starting on Mon10/23/23 at 0806, Until Discontinu ed, Routine, Pain (scale 7-10) [facility] HYDROcodone -acetaminop hen (NORCO 5) 5-325 mg tablet 2 tablet 10-23 14:06: 16 Yes 2{tbl} 2 tablet, Oral, Q6HPRN, Starting on Mon10/23/23 at 0806, Until Discontinu ed, Routine, Pain (scale 7-10) [facility] HYDROcodone -acetaminop hen (NORCO 5) 5-325 mg tablet 1 tablet 10-23 14:06: 12 Yes 1{tbl} 1 tablet, Oral, Q6HPRN, Starting on Mon10/23/23 at 0806, Until Discontinu ed, Routine, Pain (scale 4-6) [facility] HYDROcodone -acetaminop hen (NORCO 5) 5-325 mg tablet 1 tablet 10-23 14:06: 12 Yes 1{tbl} 1 tablet, Oral, Q6HPRN, Starting on Mon10/23/23 at 0806, Until Discontinu ed, Routine, Pain (scale 4-6) [facility] rho(D) immune globulin (RHOGAM) syringe 300 mcg 10-23 11:33: 18 Yes 300ug 300 mcg, Intramuscu lar, ONCE, For 1 dose, Conditiona l, Routine [facility] rho(D) immune globulin (RHOGAM) syringe 300 mcg 10-23 11:33: 18 Yes 300ug 300 mcg, Intramuscu lar, ONCE, For 1 dose, Conditiona l, Routine [facility] ibuprofen (IBU) tablet 600 mg 10-23 11:33: 15 Yes 600mg 600 mg, Oral, Q6HPRN, Starting on Mon10/23/23 at 0533, Until Discontinu ed, Routine, Pain (scale 4-6) [facility] acetaminoph en (TYLENOL) tablet 650 mg 10-23 11:33: 15 Yes 650mg 650 mg, Oral, Q6HPRN, Starting on Mon10/23/23 at 0533, Until Discontinu ed, Routine, Pain (scale 1-3) [facility] diphenhydrA MINE (BENADRYL) tablet 25 mg 10-23 11:33: 15 Yes 25mg 25 mg, Oral, Q6HPRN, Starting on Mon10/23/23 at 0533, Until Discontinu ed, Routine, Sleep, Itching [facility] ondansetron (ZOFRAN (PF)) injection 4 mg 10-23 11:33: 15 Yes 4mg 4 mg, Slow IV Push, Q8HPRN, Starting on Mon10/23/23 at 0533, Until Discontinu ed, Routine, Nausea and Vomiting (N/V) [facility] simethicone (GAS RELIEF (SIMETHICON E)) chewable tablet 160 mg 10-23 11:33: 15 Yes 160mg 160 mg, Oral, PC+HSPRN, Starting on Mon10/23/23 at 0533, Until Discontinu ed, Routine, Gas [facility] docusate (COLACE) capsule 200 mg 10-23 11:33: 15 Yes 200mg 200 mg, Oral, QDAILYPRN, Starting on Mon10/23/23 at 0533, Until Discontinu ed, Routine, Constipati on [facility] magnesium hydroxide (MILK OF MAGNESIA) 400 mg/5 mL suspension 30 mL 10-23 11:33: 15 Yes 30mL 30 mL, Oral, QDAILYPRN, Starting on Mon10/23/23 at 0533, Until Discontinu ed, Routine, Constipati on [facility] benzocaine- menthol (DERMOPLAST ) 20-0.5 % topical spray 10-23 11:33: 15 Yes Topical, PRN, Starting on Mon10/23/23 at 0533, Until Discontinu ed, Routine, Perineum discomfort [facility] ibuprofen (IBU) tablet 600 mg 10-23 11:33: 15 Yes 600mg 600 mg, Oral, Q6HPRN, Starting on Mon10/23/23 at 0533, Until Discontinu ed, Routine, Pain (scale 4-6) [facility] acetaminoph en (TYLENOL) tablet 650 mg 10-23 11:33: 15 Yes 650mg 650 mg, Oral, Q6HPRN, Starting on Mon10/23/23 at 0533, Until Discontinu ed, Routine, Pain (scale 1-3) [facility] diphenhydrA MINE (BENADRYL) tablet 25 mg 10-23 11:33: 15 Yes 25mg 25 mg, Oral, Q6HPRN, Starting on Mon10/23/23 at 0533, Until Discontinu ed, Routine, Sleep, Itching [facility] ondansetron (ZOFRAN (PF)) injection 4 mg 10-23 11:33: 15 Yes 4mg 4 mg, Slow IV Push, Q8HPRN, Starting on Mon10/23/23 at 0533, Until Discontinu ed, Routine, Nausea and Vomiting (N/V) [facility] simethicone (GAS RELIEF (SIMETHICON E)) chewable tablet 160 mg 10-23 11:33: 15 Yes 160mg 160 mg, Oral, PC+HSPRN, Starting on Mon10/23/23 at 0533, Until Discontinu ed, Routine, Gas [facility] docusate (COLACE) capsule 200 mg 10-23 11:33: 15 Yes 200mg 200 mg, Oral, QDAILYPRN, Starting on Mon10/23/23 at 0533, Until Discontinu ed, Routine, Constipati on [facility] magnesium hydroxide (MILK OF MAGNESIA) 400 mg/5 mL suspension 30 mL 10-23 11:33: 15 Yes 30mL 30 mL, Oral, QDAILYPRN, Starting on Mon10/23/23 at 0533, Until Discontinu ed, Routine, Constipati on [facility] benzocaine- menthol (DERMOPLAST ) 20-0.5 % topical spray 10-23 11:33: 15 Yes Topical, PRN, Starting on Mon10/23/23 at 0533, Until Discontinu ed, Routine, Perineum discomfort [facility] lactated ringers IV infusion 1,000 mL 10-23 08:00: 00 10-23 09:50 :37 No 1000mL at 125 mL/hr, 1,000 mL, IV Infusion, ONCE, 1 dose, On Mon10/23/23 at 0200, VIVEK [facility] ondansetron (ZOFRAN (PF)) injection 4 mg 10-23 03:30: 00 10-23 02:51 :00 No 4mg 4 mg, Slow IV Push, ONCE, On Mon10/22/23 at 2130, For 1 dose
Do ses of ondansetro n 16 mg and above need to be administer ed via IV piggyback. For Dose >=24mg ECG monitoring is advisable.
[facility] ropivacaine 0.2 % (NAROPIN (PF)) epidural infusion 10-23 02:01: 00 10-23 09:10 :54 No Epidural, CONTINUOUS PRN, Starting on Mon10/22/23 at 2001, Until Mon10/23/23 at 0310, Routine, [facility]-op [facility] lidocaine-e pinephrine (XYLOCAINE W/EPINEPHRI NE) 1.5 %-1:200,000 injection 10-23 02:00: 00 10-23 09:10 :54 No Epidural, ONCE INTRA PROCEDURE, Starting on Mon10/22/23 at 2000, Until Mon10/23/23 at 0310, Routine, Intra-op [facility] lidocaine 1% (XYLOCAINE) 100 mg/10 mL (1 %) injection 10-23 01:58: 00 10-23 09:10 :54 No Infiltrati on, ONCE INTRA PROCEDURE, Starting on Mon10/22/23 at 1958, Until Mon10/23/23 at 031, Routine, Intra-op [facility] morpHINE (2 mg/mL) injection 4 mg 10-23 01:00: 00 10-23 00:15 :00 No 4mg 4 mg, Slow IV Push, ONCE, 1 dose, On Mon10/22/23 at 1900, Routine [facility] HYDROcodone -acetaminop hen 5-325 mg tablet 10-23 00:00: 00 10-31 05:59 :00 Yes [id number] 1{tbl} Take 1 tablet by mouth every 6 (six) hours as needed for Pain (scale 7-10) for up to 7 days. Indication s: acute pain [facility] HYDROcodone -acetaminop hen 5-325 mg tablet 10-23 00:00: 00 10-31 05:59 :00 Yes [id number] 1{tbl} Take 1 tablet by mouth every 6 (six) hours as needed for Pain (scale 7-10) for up to 7 days. Indication s: acute pain [facility] oxytocin (PITOCIN) 30 units in NS 500 mL IV infusion 10-22 19:37: 03 10-24 01:13 :41 No 2mU/min at 2-40 mL/hr, IV Infusion, TITRATE, Starting on Mon10/22/23 at 1337, Until Mon10/23/23 at 1913, VIVEK [facility] lactated ringers IV infusion 500 mL 10-22 19:36: 28 10-24 01:13 :41 No 500mL at 999 mL/hr, 500 mL, IV Infusion, PRN - SEE INSTRUCTIO NS, Starting on 10/22/23 at 1336, Until 10/23/23 at 1913, Routine [facility] [id number] IV infusion 1,000 mL 10-22 19:36: 28 10-24 01:13 :41 No 1000mL at 1-125 mL/hr, IV Infusion, TITRATE, Starting on 10/22/23 at 1336, Until 10/23/23 at 1913, Routine [facility] sodium citrate-cit lita acid (BICITRA) 500-334 mg/5 mL solution 30 mL 10-22 19:36: 28 10-23 01:58 :00 No 30mL 30 mL, Oral, PRE-PROCED URE ONCE, 1 dose, Starting on Mon10/22/23 at 1336, Until Discontinu ed, Routine, Surgery/Pr ocedure [facility] albuterol 90 mcg/actuati on inhaler 2022-10 00:00: 00 Yes [id number] 2{puff} Inhale 2 Puffs every 6 (six) hours as needed for Wheezing, Shortness of Breath or Chest tightness. [facility] albuterol 90 mcg/actuati on inhaler 2022-10 00:00: 00 Yes [id number] 2{puff} Inhale 2 Puffs every 6 (six) hours as needed for Wheezing, Shortness of Breath or Chest tightness. [facility] albuterol 90 mcg/actuati on inhaler 2022-10 00:00: 00 Yes [id number] 2{puff} Inhale 2 Puffs every 6 (six) hours as needed for Wheezing, Shortness of Breath or Chest tightness. [facility] albuterol 90 mcg/actuati on inhaler 2022-10 00:00: 00 Yes [id number] 2{puff} Inhale 2 Puffs every 6 (six) hours as needed for Wheezing, Shortness of Breath or Chest tightness. [facility] albuterol 90 mcg/actuati on inhaler 2022-10 00:00: 00 Yes [id number] 2{puff} Inhale 2 Puffs every 6 (six) hours as needed for Wheezing, Shortness of Breath or Chest tightness. [facility] albuterol 90 mcg/actuati on inhaler 2022-10 00:00: 00 Yes [id number] 2{puff} Inhale 2 Puffs every 6 (six) hours as needed for Wheezing, Shortness of Breath or Chest tightness. [facility] albuterol 90 mcg/actuati on inhaler 2022-10 00:00: 00 Yes [id number] 2{puff} Inhale 2 Puffs every 6 (six) hours as needed for Wheezing, Shortness of Breath or Chest tightness. [facility] albuterol 90 mcg/actuati on inhaler 2022-10 00:00: 00 Yes [id number] 2{puff} Inhale 2 Puffs every 6 (six) hours as needed for Wheezing, Shortness of Breath or Chest tightness. [facility] albuterol 90 mcg/actuati on inhaler 2022-10 00:00: 00 Yes [id number] 2{puff} Inhale 2 Puffs every 6 (six) hours as needed for Wheezing, Shortness of Breath or Chest tightness. [facility] albuterol 90 mcg/actuati on inhaler 2022-10 00:00: 00 Yes [id number] 2{puff} Inhale 2 Puffs every 6 (six) hours as needed for Wheezing, Shortness of Breath or Chest tightness. [facility] albuterol 90 mcg/actuati on inhaler 2022-10 00:00: 00 Yes [id number] 2{puff} Inhale 2 Puffs every 6 (six) hours as needed for Wheezing, Shortness of Breath or Chest tightness. [facility] albuterol 90 mcg/actuati on inhaler 2022-10 00:00: 00 Yes [id number] 2{puff} Inhale 2 Puffs every 6 (six) hours as needed for Wheezing, Shortness of Breath or Chest tightness. [facility] albuterol 90 mcg/actuati on inhaler 2022-10 00:00: 00 Yes [id number] 2{puff} Inhale 2 Puffs every 6 (six) hours as needed for Wheezing, Shortness of Breath or Chest tightness. [facility] albuterol 90 mcg/actuati on inhaler 2022-10 00:00: 00 Yes [id number] 2{puff} Inhale 2 Puffs every 6 (six) hours as needed for Wheezing, Shortness of Breath or Chest tightness. [facility] albuterol 90 mcg/actuati on inhaler 2022-10 00:00: 00 Yes [id number] 2{puff} Inhale 2 Puffs every 6 (six) hours as needed for Wheezing, Shortness of Breath or Chest tightness. [facility] famotidine (PEPCID) 20 mg tablet 2022-10 00:00: 00 Yes [id number] 20mg Take 1 tablet by mouth in the morning and 1 tablet in the evening. [facility] famotidine (PEPCID) 20 mg tablet 2022-10 00:00: 00 Yes [id number] 20mg Take 1 tablet by mouth in the morning and 1 tablet in the evening. [facility] famotidine (PEPCID) 20 mg tablet 2022-10 00:00: 00 Yes [id number] 20mg Take 1 tablet by mouth in the morning and 1 tablet in the evening. [facility] famotidine (PEPCID) 20 mg tablet 2022-10 0 00:00: 00 Yes [id number] 20mg Take 1 tablet by mouth in the morning and 1 tablet in the evening. [facility] famotidine (PEPCID) 20 mg tablet 2022-10 0 00:00: 00 Yes [id number] 20mg Take 1 tablet by mouth in the morning and 1 tablet in the evening. [facility] famotidine (PEPCID) 20 mg tablet 2022-10 0 00:00: 00 Yes [id number] 20mg Take 1 tablet by mouth in the morning and 1 tablet in the evening. [facility] famotidine (PEPCID) 20 mg tablet 2022-10 00:00: 00 Yes [id number] 20mg Take 1 tablet by mouth in the morning and 1 tablet in the evening. [facility] famotidine (PEPCID) 20 mg tablet 2022-10 0 00:00: 00 Yes [id number] 20mg Take 1 tablet by mouth in the morning and 1 tablet in the evening. [facility] famotidine (PEPCID) 20 mg tablet 2022-10 00:00: 00 Yes [id number] 20mg Take 1 tablet by mouth in the morning and 1 tablet in the evening. [facility] famotidine (PEPCID) 20 mg tablet 2022-10 00:00: 00 Yes [id number] 20mg Take 1 tablet by mouth in the morning and 1 tablet in the evening. [facility] famotidine (PEPCID) 20 mg tablet 2022-10 00:00: 00 Yes [id number] 20mg Take 1 tablet by mouth in the morning and 1 tablet in the evening. [facility] famotidine (PEPCID) 20 mg tablet 2022-10 00:00: 00 Yes [id number] 20mg Take 1 tablet by mouth in the morning and 1 tablet in the evening. [facility] famotidine (PEPCID) 20 mg tablet 2022-10 00:00: 00 Yes [id number] 20mg Take 1 tablet by mouth in the morning and 1 tablet in the evening. [facility] famotidine (PEPCID) 20 mg tablet 2022-10 00:00: 00 Yes [id number] 20mg Take 1 tablet by mouth in the morning and 1 tablet in the evening. [facility] famotidine (PEPCID) 20 mg tablet 2022-10 00:00: 00 Yes [id number] 20mg Take 1 tablet by mouth in the morning and 1 tablet in the evening. [facility] famotidine (PEPCID) 20 mg tablet 2022-10 0 00:00: 00 Yes [id number] 20mg Take 1 tablet by mouth in the morning and 1 tablet in the evening. [facility] famotidine (PEPCID) 20 mg tablet 2022-10 0 00:00: 00 Yes [id number] 20mg Take 1 tablet by mouth in the morning and 1 tablet in the evening. [facility] famotidine (PEPCID) 20 mg tablet 2022-10 0 00:00: 00 12-18 00:00 :00 No [id number] 20mg Take 1 tablet by mouth in the morning and 1 tablet in the evening. [facility] famotidine (PEPCID) 20 mg tablet 2022-10 00:00: 00 12-18 00:00 :00 No [id number] 20mg Take 1 tablet by mouth in the morning and 1 tablet in the evening. [facility] famotidine (PEPCID) 20 mg tablet 2022-10 0 00:00: 00 12-18 00:00 :00 No [id number] 20mg Take 1 tablet by mouth in the morning and 1 tablet in the evening. [facility] Iron Fum & P-FA-Vit B & C No.9 (INTEGRA PLUS) 125 mg iron- 1 mg Cap 2022-10 0 00:00: 00 Yes [id number] 1{capsu le} Take 1 capsule by mouth in the morning. [facility] Iron Fum & P-FA-Vit B & C No.9 (INTEGRA PLUS) 125 mg iron- 1 mg Cap 2022-10 0- 00:00: 00 Yes [id number] 1{capsu le} Take 1 capsule by mouth in the morning. [facility] Iron Fum & P-FA-Vit B & C No.9 (INTEGRA PLUS) 125 mg iron- 1 mg Cap 2022-10 0-13 00:00: 00 Yes [id number] 1{capsu le} Take 1 capsule by mouth in the morning. [facility] Iron Fum & P-FA-Vit B & C No.9 (INTEGRA PLUS) 125 mg iron- 1 mg Cap 2023-1 0-13 00:00: 00 Yes [id number] 1{capsu le} Take 1 capsule by mouth in the morning. [facility] Iron Fum & P-FA-Vit B & C No.9 (INTEGRA PLUS) 125 mg iron- 1 mg Cap 2023-1 0-13 00:00: 00 Yes [id number] 1{capsu le} Take 1 capsule by mouth in the morning. [facility] Iron Fum & P-FA-Vit B & C No.9 (INTEGRA PLUS) 125 mg iron- 1 mg Cap 2023-1 0-13 00:00: 00 Yes [id number] 1{capsu le} Take 1 capsule by mouth in the morning. [facility] Iron Fum & P-FA-Vit B & C No.9 (INTEGRA PLUS) 125 mg iron- 1 mg Cap 3-1 0-13 00:00: 00 Yes [id number] 1{capsu le} Take 1 capsule by mouth in the morning. [facility] Iron Fum & P-FA-Vit B & C No.9 (INTEGRA PLUS) 125 mg iron- 1 mg Cap 3-1 0-13 00:00: 00 Yes [id number] 1{capsu le} Take 1 capsule by mouth in the morning. [facility] Iron Fum & P-FA-Vit B & C No.9 (INTEGRA PLUS) 125 mg iron- 1 mg Cap 2023-1 0-13 00:00: 00 Yes [id number] 1{capsu le} Take 1 capsule by mouth in the morning. [facility] Iron Fum & P-FA-Vit B & C No.9 (INTEGRA PLUS) 125 mg iron- 1 mg Cap 2023-1 0-13 00:00: 00 Yes [id number] 1{capsu le} Take 1 capsule by mouth in the morning. [facility] Iron Fum & P-FA-Vit B & C No.9 (INTEGRA PLUS) 125 mg iron- 1 mg Cap 2023-1 0-13 00:00: 00 Yes [id number] 1{capsu le} Take 1 capsule by mouth in the morning. [facility] Iron Fum & P-FA-Vit B & C No.9 (INTEGRA PLUS) 125 mg iron- 1 mg Cap 3-1 0-13 00:00: 00 Yes [id number] 1{capsu le} Take 1 capsule by mouth in the morning. [facility] Iron Fum & P-FA-Vit B & C No.9 (INTEGRA PLUS) 125 mg iron- 1 mg Cap 3-1 0-13 00:00: 00 Yes [id number] 1{capsu le} Take 1 capsule by mouth in the morning. [facility] Iron Fum & P-FA-Vit B & C No.9 (INTEGRA PLUS) 125 mg iron- 1 mg Cap 3-1 0-13 00:00: 00 Yes [id number] 1{capsu le} Take 1 capsule by mouth in the morning. [facility] Iron Fum & P-FA-Vit B & C No.9 (INTEGRA PLUS) 125 mg iron- 1 mg Cap 3-1 0-13 00:00: 00 Yes [id number] 1{capsu le} Take 1 capsule by mouth in the morning. [facility] Iron Fum & P-FA-Vit B & C No.9 (INTEGRA PLUS) 125 mg iron- 1 mg Cap 2022-1 0-13 00:00: 00 10-25 00:00 :00 No [id number] 1{capsu le} Take 1 capsule by mouth in the morning. [facility] PNV 67-iron ps-folate no.1-dha (VITAFOL ULTRA) 29 mg iron- 1 mg-200 mg Cap 2022-0 8-03 00:00: 00 11-15 05:59 :00 No [id number] 1{tbl} Take 1 tablet by mouth in the morning for 180 days. [facility] PNV 67-iron ps-folate no.1-dha (VITAFOL ULTRA) 29 mg iron- 1 mg-200 mg Cap 3-0 8-03 00:00: 00 11-15 05:59 :00 No [id number] 1{tbl} Take 1 tablet by mouth in the morning for 180 days. [facility] PNV 67-iron ps-folate no.1-dha (VITAFOL ULTRA) 29 mg iron- 1 mg-200 mg Cap 3-0 8-03 00:00: 00 11-15 05:59 :00 No [id number] 1{tbl} Take 1 tablet by mouth in the morning for 180 days. [facility] 67-iron ps-folate no.1-dha (VITAFOL ULTRA) 29 mg iron- 1 mg-200 mg Cap 3-0 8-03 00:00: 00 11-15 05:59 :00 No [id number] 1{tbl} Take 1 tablet by mouth in the morning for 180 days. [facility] 67-iron ps-folate no.1-dha (VITAFOL ULTRA) 29 mg iron- 1 mg-200 mg Cap 3-0 8-03 00:00: 00 11-15 05:59 :00 No [id number] 1{tbl} Take 1 tablet by mouth in the morning for 180 days. [facility] 67-iron ps-folate no.1-dha (VITAFOL ULTRA) 29 mg iron- 1 mg-200 mg Cap 3-0 8-03 00:00: 00 11-15 05:59 :00 No [id number] 1{tbl} Take 1 tablet by mouth in the morning for 180 days. [facility] 67-iron ps-folate no.1-dha (VITAFOL ULTRA) 29 mg iron- 1 mg-200 mg Cap 3-0 8-03 00:00: 00 11-15 05:59 :00 No [id number] 1{tbl} Take 1 tablet by mouth in the morning for 180 days. [facility] 67-iron ps-folate no.1-dha (VITAFOL ULTRA) 29 mg iron- 1 mg-200 mg Cap 3-0 8-03 00:00: 00 11-15 05:59 :00 No [id number] 1{tbl} Take 1 tablet by mouth in the morning for 180 days. [facility] 67-iron ps-folate no.1-dha (VITAFOL ULTRA) 29 mg iron- 1 mg-200 mg Cap 3-0 8-03 00:00: 00 11-15 05:59 :00 No [id number] 1{tbl} Take 1 tablet by mouth in the morning for 180 days. [facility] PNV 67-iron ps-folate no.1-dha (VITAFOL ULTRA) 29 mg iron- 1 mg-200 mg Cap 3-0 8-03 00:00: 00 11-15 05:59 :00 No [id number] 1{tbl} Take 1 tablet by mouth in the morning for 180 days. [facility] PNV 67-iron ps-folate no.1-dha (VITAFOL ULTRA) 29 mg iron- 1 mg-200 mg Cap 2022-0 8-03 00:00: 00 11-15 05:59 :00 No [id number] 1{tbl} Take 1 tablet by mouth in the morning for [facility] days[facility]-folate no.1-dha (VITAFOL ULTRA) 29 mg iron- 1 mg-200 mg Cap 2022-0 8-03 00:00: 00 11-15 05:59 :00 No [id number] 1{tbl} Take 1 tablet by mouth in the morning for 180 days. [facility] PNV 67-iron ps-folate no.1-dha (VITAFOL ULTRA) 29 mg iron- 1 mg-200 mg Cap 2022-0 8-03 00:00: 00 11-15 05:59 :00 No [id number] 1{tbl} Take 1 tablet by mouth in the morning for 180 days. [facility] PNV 67-iron ps-folate no.1-dha (VITAFOL ULTRA) 29 mg iron- 1 mg-200 mg Cap 3-0 8-03 00:00: 00 11-15 05:59 :00 No [id number] 1{tbl} Take 1 tablet by mouth in the morning for 180 days. [facility] PNV 67-iron ps-folate no.1-dha (VITAFOL ULTRA) 29 mg iron- 1 mg-200 mg Cap 3-0 8-03 00:00: 00 11-15 05:59 :00 No [id number] 1{tbl} Take 1 tablet by mouth in the morning for 180 days. [facility] PNV 67-iron ps-folate no.1-dha (VITAFOL ULTRA) 29 mg iron- 1 mg-200 mg Cap 3-0 8-03 00:00: 00 11-15 05:59 :00 No [id number] 1{tbl} Take 1 tablet by mouth in the morning for 180 days. [facility] PNV 67-iron ps-folate no.1-dha (VITAFOL ULTRA) 29 mg iron- 1 mg-200 mg Cap 2022-0 8-03 00:00: 00 11-15 05:59 :00 No [id number] 1{tbl} Take 1 tablet by mouth in the morning for 180 days. [facility] PNV 67-iron ps-folate no.1-dha (VITAFOL ULTRA) 29 mg iron- 1 mg-200 mg Cap 2022-0 8-03 00:00: 00 11-15 05:59 :00 No [id number] 1{tbl} Take 1 tablet by mouth in the morning for 180 days. [facility] PNV 67-iron ps-folate no.1-dha (VITAFOL ULTRA) 29 mg iron- 1 mg-200 mg Cap 3-0 8-03 00:00: 00 11-15 05:59 :00 No [id number] 1{tbl} Take 1 tablet by mouth in the morning for 180 days. [facility] PNV 67-iron ps-folate no.1-dha (VITAFOL ULTRA) 29 mg iron- 1 mg-200 mg Cap 3-0 8-03 00:00: 00 11-15 05:59 :00 No [id number] 1{tbl} Take 1 tablet by mouth in the morning for 180 days. [facility] PNV 67-iron ps-folate no.1-dha (VITAFOL ULTRA) 29 mg iron- 1 mg-200 mg Cap 3-0 8-03 00:00: 00 11-15 05:59 :00 No [id number] 1{tbl} Take 1 tablet by mouth in the morning for 180 days. [facility] PNV 67-iron ps-folate no.1-dha (VITAFOL ULTRA) 29 mg iron- 1 mg-200 mg Cap 3-0 8-03 00:00: 00 11-15 05:59 :00 No [id number] 1{tbl} Take 1 tablet by mouth in the morning for 180 days. [facility] PNV 67-iron ps-folate no.1-dha (VITAFOL ULTRA) 29 mg iron- 1 mg-200 mg Cap 3-0 8-03 00:00: 00 11-15 05:59 :00 No [id number] 1{tbl} Take 1 tablet by mouth in the morning for 180 days. [facility] PNV 67-iron ps-folate no.1-dha (VITAFOL ULTRA) 29 mg iron- 1 mg-200 mg Cap 2022-0 8-03 00:00: 00 11-15 05:59 :00 No [id number] 1{tbl} Take 1 tablet by mouth in the morning for 180 days. [facility] PNV 67-iron ps-folate no.1-dha (VITAFOL ULTRA) 29 mg iron- 1 mg-200 mg Cap 3-0 8-03 00:00: 00 11-15 05:59 :00 No [id number] 1{tbl} Take 1 tablet by mouth in the morning for 180 days. [facility] PNV 67-iron ps-folate no.1-dha (VITAFOL ULTRA) 29 mg iron- 1 mg-200 mg Cap 3-0 8-03 00:00: 00 11-15 05:59 :00 No [id number] 1{tbl} Take 1 tablet by mouth in the morning for 180 days. [facility] PNV 67-iron ps-folate no.1-dha (VITAFOL ULTRA) 29 mg iron- 1 mg-200 mg Cap 3-0 8-03 00:00: 00 10-25 00:00 :00 No [id number] 1{tbl} Take 1 tablet by mouth in the morning for 180 days. [facility] 67-iron ps-folate no.1-dha (VITAFOL ULTRA) 29 mg iron- 1 mg-200 mg Cap 3-0 6-15 00:00: 00 04-30 04:59 :00 No [id number] 1{tbl} Take 1 tablet by mouth in the morning for 30 days. [facility] PNV 67-iron ps-folate no.1-dha (VITAFOL ULTRA) 29 mg iron- 1 mg-200 mg Cap 3-0 6-15 00:00: 00 04-30 04:59 :00 No [id number] 1{tbl} Take 1 tablet by mouth in the morning for 30 days. [facility] PNV 67-iron ps-folate no.1-dha (VITAFOL ULTRA) 29 mg iron- 1 mg-200 mg Cap 3-0 6-15 00:00: 00 04-30 04:59 :00 No [id number] 1{tbl} Take 1 tablet by mouth in the morning for 30 days. [facility] ps-folate no.1-dha (VITAFOL ULTRA) 29 mg iron- 1 mg-200 mg Cap 2022-0 6-15 00:00: 00 04-30 04:59 :00 No [id number] 1{tbl} Take 1 tablet by mouth in the morning for 30 days. [facility] ps-folate no.1-dha (VITAFOL ULTRA) 29 mg iron- 1 mg-200 mg Cap 3-0 6-15 00:00: 00 04-30 04:59 :00 No [id number] 1{tbl} Take 1 tablet by mouth in the morning for 30 days. [facility] PNV 67-iron ps-folate no.1-dha (VITAFOL ULTRA) 29 mg iron- 1 mg-200 mg Cap 3-0 6-15 00:00: 00 04-30 04:59 :00 No [id number] 1{tbl} Take 1 tablet by mouth in the morning for 30 days. [facility] PNV 67-iron ps-folate no.1-dha (VITAFOL ULTRA) 29 mg iron- 1 mg-200 mg Cap 2022-0 6-15 00:00: 00 04-30 04:59 :00 No [id number] 1{tbl} Take 1 tablet by mouth in the morning for 30 days. [facility] PNV 67-iron ps-folate no.1-dha (VITAFOL ULTRA) 29 mg iron- 1 mg-200 mg Cap 2022-0 6-15 00:00: 00 04-30 04:59 :00 No [id number] 1{tbl} Take 1 tablet by mouth in the morning for 30 days. [facility] PNV 67-iron ps-folate no.1-dha (VITAFOL ULTRA) 29 mg iron- 1 mg-200 mg Cap 2022-0 6-15 00:00: 00 04-30 04:59 :00 No [id number] 1{tbl} Take 1 tablet by mouth in the morning for 30 days. [facility] PNV 67-iron ps-folate no.1-dha (VITAFOL ULTRA) 29 mg iron- 1 mg-200 mg Cap 2022-0 6-15 00:00: 00 04-30 04:59 :00 No [id number] 1{tbl} Take 1 tablet by mouth in the [facility] [address] [facility] ( FE ,) 1.5 mg-30 mcg (21)/75 mg (7) per tablet 2021-10 005 00:00: 00 Yes [id number] 1{tbl} Take 1 tablet by mouth in the morning. [facility] norethindro ne-e.estrad ioL-iron (MARCHL FE .,) 1.5 mg-30 mcg (21)/75 mg (7) per tablet 2021-10 0-05 00:00: 00 Yes [id number] 1{tbl} Take 1 tablet by mouth in the morning. [facility] norethindro ne-e.estrad ioL-iron (MARCHL FE .,) 1.5 mg-30 mcg (21)/75 mg (7) per tablet 2021-10 0-05 00:00: 00 Yes [id number] 1{tbl} Take 1 tablet by mouth in the morning. [facility] ne-e.estrad ioL-iron (MARCHL FE .03/14, 28,) 1.5 mg-30 mcg (21)/75 mg (7) per tablet 2021-10 005 00:00: 00 Yes [id number] 1{tbl} Take 1 tablet by mouth in the morning. [facility] ioL-iron (MARCHL FE .03/14, ,) 1.5 mg-30 mcg (21)/75 mg (7) per tablet 2021-10 005 00:00: 00 Yes [id number] 1{tbl} Take 1 tablet by mouth in the morning. [facility]-e.estrad ioL-iron (MARCHL FE .03/14, ,) 1.5 mg-30 mcg (21)/75 mg (7) per tablet 2021-10 005 00:00: 00 Yes [id number] 1{tbl} Take 1 tablet by mouth in the morning. [facility] ioL-iron (MARCHL FE .03/14, 28,) 1.5 mg-30 mcg (21)/75 mg (7) per tablet 2021-10 005 00:00: 00 Yes [id number] 1{tbl} Take 1 tablet by mouth in the morning. [facility] ne-e.estrad ioL-iron (MARCHL FE .03/14, 28,) 1.5 mg-30 mcg (21)/75 mg (7) per tablet 2021-10 005 00:00: 00 02-28 00:00 :00 No [id number] 1{tbl} Take 1 tablet by mouth in the morning. [facility] metroNIDAZO LE 500 mg tablet - 00:00: 00 07-20 00:00 :00 No [id number] 500mg Take 1 tablet by mouth 2 (two) times daily. [facility] metroNIDAZO LE 500 mg tablet 02-23 00:00: 00 07-20 00:00 :00 No [id number] 500mg Take 1 tablet by mouth 2 (two) times daily. [facility] fluconazole (DIFLUCAN) 150 mg tablet 02-22 00:00: 00 02-23 04:59 :00 No [id number] 150mg Take 1 tablet by mouth once now for 1 dose. [facility] medroxyPROG ESTERone (DEPO-PROVE RA) injection 150 mg 07-13 19:45: 00 06-14 19:44 :00 No [id number] 150mg [facility] Immunizations Ordered Immunization Name Filled Immunization Name Date Status Comments Source Influenza Virus Vaccine Quad IM, Preserv and ABX Free 6 MO-64 YRS 2022-07-20 00:00:00 Completed [facility] Influenza Virus Vaccine Quad IM, Preserv and ABX Free 6 MO-64 YRS 2022-07-20 00:00:00 Completed [facility] Influenza Virus Vaccine Quad IM, Preserv and ABX Free 6 MO-64 YRS 2022-07-20 00:00:00 Completed [facility] Influenza Virus Vaccine Quad IM, Preserv and ABX Free 6 MO-64 YRS 2022-07-20 00:00:00 Completed [facility] Influenza Virus Vaccine Quad IM, Preserv and ABX Free 6 MO-64 YRS 2022-07-20 00:00:00 Completed [facility] Influenza Virus Vaccine Quad IM, Preserv and ABX Free 6 MO-64 YRS 2022-07-20 00:00:00 Completed [facility] Influenza Virus Vaccine Quad IM, Preserv and ABX Free 6 MO-64 YRS 2022-07-20 00:00:00 Completed [facility] Influenza Virus Vaccine Quad IM, Preserv and ABX Free 6 MO-64 YRS 2022-07-20 00:00:00 Completed [facility] Influenza Virus Vaccine Quad IM, Preserv and ABX Free 6 MO-64 YRS 2022-07-20 00:00:00 Completed [facility] Influenza Virus Vaccine Quad IM, Preserv and ABX Free 6 MO-64 YRS 2022-07-20 00:00:00 Completed [facility] Influenza Virus Vaccine Quad IM, Preserv and ABX Free 6 MO-64 YRS 2022-07-20 00:00:00 Completed [facility] Influenza Virus Vaccine Quad IM, Preserv and ABX Free 6 MO-64 YRS 2022-07-20 00:00:00 Completed [facility] Influenza Virus Vaccine Quad IM, Preserv and ABX Free 6 MO-64 YRS 2022-07-20 00:00:00 Completed [facility] Influenza Virus Vaccine Quad IM, Preserv and ABX Free 6 MO-64 YRS 2022-07-20 00:00:00 Completed [facility] Influenza Virus Vaccine Quad IM, Preserv and ABX Free 6 MO-64 YRS 2022-07-20 00:00:00 Completed [facility] Influenza Virus Vaccine Quad IM, Preserv and ABX Free 6 MO-64 YRS 2022-07-20 00:00:00 Completed [facility] Influenza Virus Vaccine Quad IM, Preserv and ABX Free 6 MO-64 YRS 2022-07-20 00:00:00 Completed [facility] Influenza Virus Vaccine Quad IM, Preserv and ABX Free 6 MO-64 YRS 2022-07-20 00:00:00 Completed [facility] Influenza Virus Vaccine Quad IM, Preserv and ABX Free 6 MO-64 YRS 2022-07-20 00:00:00 Completed [facility] Influenza Virus Vaccine Quad IM, Preserv and ABX Free 6 MO-64 YRS 2022-07-20 00:00:00 Completed [facility] Influenza Virus Vaccine Quad IM, Preserv and ABX Free 6 MO-64 YRS 2022-07-20 00:00:00 Completed [facility] Influenza Virus Vaccine Quad IM, Preserv and ABX Free 6 MO-64 YRS (FLUCELVAX) 2022-07-20 00:00:00 Completed [facility] Influenza Virus Vaccine Quad IM, Preserv and ABX Free 6 MO-64 YRS (FLUCELVAX) 2022-07-20 00:00:00 Completed [facility] Influenza Virus Vaccine Quad IM, Preserv and ABX Free 6 MO-64 YRS (FLUCELVAX) 2022-07-20 00:00:00 Completed [facility] Influenza Virus Vaccine Quad IM, Preserv and ABX Free 6 MO-64 YRS (FLUCELVAX) 2022-07-20 00:00:00 Completed [facility] Influenza Virus Vaccine Quad IM, Preserv and ABX Free 6 MO-64 YRS (FLUCELVAX) 2022-07-20 00:00:00 Completed [facility] HPV9 2021-10-05 00:00:00 Completed [facility] HPV9 2021-10-05 00:00:00 Completed [facility] HPV9 2021-10-05 00:00:00 Completed [facility] HPV9 2021-10-05 00:00:00 Completed [facility] HPV9 2021-10-05 00:00:00 Completed [facility] HPV9 2021-10-05 00:00:00 Completed [facility] HPV9 2021-10-05 00:00:00 Completed [facility] HPV9 2021-10-05 00:00:00 Completed [facility] HPV9 2021-10-05 00:00:00 Completed [facility] HPV9 2021-10-05 00:00:00 Completed [facility] HPV9 2021-10-05 00:00:00 Completed [facility] HPV9 2021-10-05 00:00:00 Completed [facility] HPV9 2021-10-05 00:00:00 Completed [facility] HPV9 2021-10-05 00:00:00 Completed [facility] HPV9 2021-10-05 00:00:00 Completed [facility] HPV9 2021-10-05 00:00:00 Completed [facility] HPV9 2021-10-05 00:00:00 Completed [facility] HPV9 2021-10-05 00:00:00 Completed [facility] HPV9 2021-10-05 00:00:00 Completed [facility] HPV9 2021-10-05 00:00:00 Completed [facility] HPV9 2021-10-05 00:00:00 Completed [facility] HPV9 2021-10-05 00:00:00 Completed [facility] HPV9 2021-10-05 00:00:00 Completed [facility] HPV9 2021-10-05 00:00:00 Completed [facility] HPV9 2021-10-05 00:00:00 Completed [facility] HPV9 2021-10-05 00:00:00 Completed [facility] HPV9 2021-10-05 00:00:00 Completed [facility] SARS-COV-2 COVID-19 PFIZER VACCINE 2021-07-31 00:00:00 Completed [facility] SARS-COV-2 COVID-19 PFIZER VACCINE 2021-07-31 00:00:00 Completed [facility] SARS-COV-2 COVID-19 PFIZER VACCINE 2021-07-31 00:00:00 Completed [facility] SARS-COV-2 COVID-19 PFIZER VACCINE 2021-07-31 00:00:00 Completed [facility] SARS-COV-2 COVID-19 PFIZER VACCINE 2021-07-31 00:00:00 Completed [facility] SARS-COV-2 COVID-19 PFIZER VACCINE 2021-07-31 00:00:00 Completed [facility] SARS-COV-2 COVID-19 PFIZER VACCINE 2021-07-31 00:00:00 Completed [facility] SARS-COV-2 COVID-19 PFIZER VACCINE 2021-07-31 00:00:00 Completed [facility] SARS-COV-2 COVID-19 PFIZER VACCINE 2021-07-31 00:00:00 Completed [facility] SARS-COV-2 COVID-19 PFIZER VACCINE 2021-07-31 00:00:00 Completed [facility] SARS-COV-2 COVID-19 PFIZER VACCINE 2021-07-31 00:00:00 Completed [facility] SARS-COV-2 COVID-19 PFIZER VACCINE 2021-07-31 00:00:00 Completed [facility] SARS-COV-2 COVID-19 PFIZER VACCINE 2021-07-31 00:00:00 Completed [facility] SARS-COV-2 COVID-19 PFIZER VACCINE 2021-07-31 00:00:00 Completed [facility] SARS-COV-2 COVID-19 PFIZER VACCINE 2021-07-31 00:00:00 Completed [facility] SARS-COV-2 COVID-19 PFIZER VACCINE 2021-07-31 00:00:00 Completed [facility] SARS-COV-2 COVID-19 PFIZER VACCINE 2021-07-31 00:00:00 Completed [facility] SARS-COV-2 COVID-19 PFIZER VACCINE 2021-07-31 00:00:00 Completed [facility] SARS-COV-2 COVID-19 PFIZER VACCINE 2021-07-31 00:00:00 Completed [facility] SARS-COV-2 COVID-19 PFIZER VACCINE 2021-07-10 00:00:00 Completed [facility] SARS-COV-2 COVID-19 PFIZER VACCINE 2021-07-10 00:00:00 Completed [facility] SARS-COV-2 COVID-19 PFIZER VACCINE 2021-07-10 00:00:00 Completed [facility] SARS-COV-2 COVID-19 PFIZER VACCINE 2021-07-10 00:00:00 Completed [facility] SARS-COV-2 COVID-19 PFIZER VACCINE 2021-07-10 00:00:00 Completed [facility] SARS-COV-2 COVID-19 PFIZER VACCINE 2021-07-10 00:00:00 Completed [facility] SARS-COV-2 COVID-19 PFIZER VACCINE 2021-07-10 00:00:00 Completed [facility] SARS-COV-2 COVID-19 PFIZER VACCINE 2021-07-10 00:00:00 Completed [facility] SARS-COV-2 COVID-19 PFIZER VACCINE 2021-07-10 00:00:00 Completed [facility] SARS-COV-2 COVID-19 PFIZER VACCINE 2021-07-10 00:00:00 Completed [facility] SARS-COV-2 COVID-19 PFIZER VACCINE 2021-07-10 00:00:00 Completed [facility] SARS-COV-2 COVID-19 PFIZER VACCINE 2021-07-10 00:00:00 Completed [facility] SARS-COV-2 COVID-19 PFIZER VACCINE 2021-07-10 00:00:00 Completed [facility] SARS-COV-2 COVID-19 PFIZER VACCINE 2021-07-10 00:00:00 Completed [facility] SARS-COV-2 COVID-19 PFIZER VACCINE 2021-07-10 00:00:00 Completed [facility] SARS-COV-2 COVID-19 PFIZER VACCINE 2021-07-10 00:00:00 Completed [facility] SARS-COV-2 COVID-19 PFIZER VACCINE 2021-07-10 00:00:00 Completed [facility] SARS-COV-2 COVID-19 PFIZER VACCINE 2021-07-10 00:00:00 Completed [facility] SARS-COV-2 COVID-19 PFIZER VACCINE 2021-07-10 00:00:00 Completed [facility] Influenza Virus Vaccine Quad .5 mL IM 6+ MO 2020-08-26 00:00:00 Completed [facility] Influenza Virus Vaccine Quad .5 mL IM 6+ MO 2020-08-26 00:00:00 Completed [facility] Influenza Virus Vaccine Quad .5 mL IM 6+ MO 2020-08-26 00:00:00 Completed [facility] Influenza Virus Vaccine Quad .5 mL IM 6+ MO 2020-08-26 00:00:00 Completed [facility] Influenza Virus Vaccine Quad .5 mL IM 6+ MO 2020-08-26 00:00:00 Completed [facility] Influenza Virus Vaccine Quad .5 mL IM 6+ MO 2020-08-26 00:00:00 Completed [facility] Influenza Virus Vaccine Quad .5 mL IM 6+ MO 2020-08-26 00:00:00 Completed [facility] Influenza Virus Vaccine Quad .5 mL IM 6+ MO 2020-08-26 00:00:00 Completed [facility] Influenza Virus Vaccine Quad .5 mL IM 6+ MO 2020-08-26 00:00:00 Completed [facility] Influenza Virus Vaccine Quad .5 mL IM 6+ MO 2020-08-26 00:00:00 Completed [facility] Influenza Virus Vaccine Quad .5 mL IM 6+ MO 2020-08-26 00:00:00 Completed [facility] Influenza Virus Vaccine Quad .5 mL IM 6+ MO 2020-08-26 00:00:00 Completed [facility] Influenza Virus Vaccine Quad .5 mL IM 6+ MO 2020-08-26 00:00:00 Completed [facility] Influenza Virus Vaccine Quad .5 mL IM 6+ MO 2020-08-26 00:00:00 Completed [facility] Influenza Virus Vaccine Quad .5 mL IM 6+ MO 2020-08-26 00:00:00 Completed [facility] Influenza Virus Vaccine Quad .5 mL IM 6+ MO 2020-08-26 00:00:00 Completed [facility] Influenza Virus Vaccine Quad .5 mL IM 6+ MO 2020-08-26 00:00:00 Completed [facility] Influenza Virus Vaccine Quad .5 mL IM 6+ MO 2020-08-26 00:00:00 Completed [facility] Influenza Virus Vaccine Quad .5 mL IM 6+ MO 2020-08-26 00:00:00 Completed [facility] Influenza Virus Vaccine Quad .5 mL IM 6+ MO 2020-08-26 00:00:00 Completed [facility] Influenza Virus Vaccine Quad .5 mL IM 6+ MO 2020-08-26 00:00:00 Completed [facility] Influenza Virus Vaccine Quad .5 mL IM 6+ MO 2020-08-26 00:00:00 Completed [facility] Influenza Virus Vaccine Quad .5 mL IM 6+ MO (FLUZONE/FLULAVAL/FL UARIX) 2020-08-26 00:00:00 Completed [facility] Influenza Virus Vaccine Quad .5 mL IM 6+ MO (FLUZONE/FLULAVAL/FL UARIX) 2020-08-26 00:00:00 Completed [facility] Influenza Virus Vaccine Quad .5 mL IM 6+ MO (FLUZONE/FLULAVAL/FL UARIX) 2020-08-26 00:00:00 Completed [facility] Influenza Virus Vaccine Quad .5 mL IM 6+ MO (FLUZONE/FLULAVAL/FL UARIX) 2020-08-26 00:00:00 Completed [facility] Influenza Virus Vaccine Quad .5 mL IM 6+ MO (FLUZONE/FLULAVAL/FL UARIX) 2020-08-26 00:00:00 Completed [facility] HPV9 2020-05-18 00:00:00 Completed [facility] HPV9 2020-05-18 00:00:00 Completed [facility] HPV9 2020-05-18 00:00:00 Completed [facility] HPV9 2020-05-18 00:00:00 Completed [facility] HPV9 2020-05-18 00:00:00 Completed [facility] HPV9 2020-05-18 00:00:00 Completed [facility] HPV9 2020-05-18 00:00:00 Completed [facility] HPV9 2020-05-18 00:00:00 Completed [facility] HPV9 2020-05-18 00:00:00 Completed [facility] HPV9 2020-05-18 00:00:00 Completed [facility] HPV9 2020-05-18 00:00:00 Completed [facility] HPV9 2020-05-18 00:00:00 Completed [facility] HPV9 2020-05-18 00:00:00 Completed [facility] HPV9 2020-05-18 00:00:00 Completed [facility] HPV9 2020-05-18 00:00:00 Completed [facility] HPV9 2020-05-18 00:00:00 Completed [facility] HPV9 2020-05-18 00:00:00 Completed [facility] HPV9 2020-05-18 00:00:00 Completed [facility] HPV9 2020-05-18 00:00:00 Completed [facility] HPV9 2020-05-18 00:00:00 Completed [facility] HPV9 2020-05-18 00:00:00 Completed [facility] HPV9 2020-05-18 00:00:00 Completed [facility] HPV9 2020-05-18 00:00:00 Completed [facility] HPV9 2020-05-18 00:00:00 Completed [facility] HPV9 2020-05-18 00:00:00 Completed [facility] HPV9 2020-05-18 00:00:00 Completed [facility] HPV9 2020-05-18 00:00:00 Completed [facility] HPV9 2020-04-06 00:00:00 Completed [facility] MMR 2020-04-06 00:00:00 Completed [facility] HPV9 2020-04-06 00:00:00 Completed [facility] MMR 2020-04-06 00:00:00 Completed [facility] HPV9 2020-04-06 00:00:00 Completed [facility] MMR 2020-04-06 00:00:00 Completed [facility] HPV9 2020-04-06 00:00:00 Completed [facility] MMR 2020-04-06 00:00:00 Completed [facility] HPV9 2020-04-06 00:00:00 Completed [facility] MMR 2020-04-06 00:00:00 Completed [facility] HPV9 2020-04-06 00:00:00 Completed [facility] MMR 2020-04-06 00:00:00 Completed [facility] HPV9 2020-04-06 00:00:00 Completed [facility] MMR 2020-04-06 00:00:00 Completed [facility] HPV9 2020-04-06 00:00:00 Completed [facility] MMR 2020-04-06 00:00:00 Completed [facility] HPV9 2020-04-06 00:00:00 Completed [facility] MMR 2020-04-06 00:00:00 Completed [facility] HPV9 2020-04-06 00:00:00 Completed [facility] MMR 2020-04-06 00:00:00 Completed [facility] HPV9 2020-04-06 00:00:00 Completed [facility] MMR 2020-04-06 00:00:00 Completed [facility] HPV9 2020-04-06 00:00:00 Completed [facility] MMR 2020-04-06 00:00:00 Completed [facility] HPV9 2020-04-06 00:00:00 Completed [facility] MMR 2020-04-06 00:00:00 Completed [facility] HPV9 2020-04-06 00:00:00 Completed [facility] MMR 2020-04-06 00:00:00 Completed [facility] HPV9 2020-04-06 00:00:00 Completed [facility] MMR 2020-04-06 00:00:00 Completed [facility] HPV9 2020-04-06 00:00:00 Completed [facility] MMR 2020-04-06 00:00:00 Completed [facility] HPV9 2020-04-06 00:00:00 Completed [facility] MMR 2020-04-06 00:00:00 Completed [facility] HPV9 2020-04-06 00:00:00 Completed [facility] MMR 2020-04-06 00:00:00 Completed [facility] HPV9 2020-04-06 00:00:00 Completed [facility] MMR 2020-04-06 00:00:00 Completed [facility] HPV9 2020-04-06 00:00:00 Completed [facility] MMR 2020-04-06 00:00:00 Completed [facility] HPV9 2020-04-06 00:00:00 Completed [facility] MMR 2020-04-06 00:00:00 Completed [facility] HPV9 2020-04-06 00:00:00 Completed [facility] MMR 2020-04-06 00:00:00 Completed [facility] HPV9 2020-04-06 00:00:00 Completed [facility] MMR 2020-04-06 00:00:00 Completed [facility] HPV9 2020-04-06 00:00:00 Completed [facility] MMR 2020-04-06 00:00:00 Completed [facility] HPV9 2020-04-06 00:00:00 Completed [facility] MMR 2020-04-06 00:00:00 Completed [facility] HPV9 2020-04-06 00:00:00 Completed [facility] MMR 2020-04-06 00:00:00 Completed [facility] HPV9 2020-04-06 00:00:00 Completed [facility] MMR 2020-04-06 00:00:00 Completed [facility] TDAP 2020-01-31 00:00:00 Completed [facility] TDAP 2020-01-31 00:00:00 Completed [facility] TDAP 2020-01-31 00:00:00 Completed [facility] TDAP 2020-01-31 00:00:00 Completed [facility] TDAP 2020-01-31 00:00:00 Completed [facility] TDAP 2020-01-31 00:00:00 Completed [facility] TDAP 2020-01-31 00:00:00 Completed [facility] TDAP 2020-01-31 00:00:00 Completed [facility] TDAP 2020-01-31 00:00:00 Completed [facility] TDAP 2020-01-31 00:00:00 Completed [facility] TDAP 2020-01-31 00:00:00 Completed [facility] TDAP 2020-01-31 00:00:00 Completed [facility] TDAP 2020-01-31 00:00:00 Completed [facility] TDAP 2020-01-31 00:00:00 Completed [facility] TDAP 2020-01-31 00:00:00 Completed [facility] TDAP 2020-01-31 00:00:00 Completed [facility] TDAP 2020-01-31 00:00:00 Completed [facility] TDAP 2020-01-31 00:00:00 Completed [facility] TDAP 2020-01-31 00:00:00 Completed [facility] TDAP 2020-01-31 00:00:00 Completed [facility] TDAP 2020-01-31 00:00:00 Completed [facility] TDAP 2020-01-31 00:00:00 Completed [facility] TDAP 2020-01-31 00:00:00 Completed [facility] TDAP 2020-01-31 00:00:00 Completed [facility] TDAP 2020-01-31 00:00:00 Completed [facility] TDAP 2020-01-31 00:00:00 Completed [facility] TDAP 2020-01-31 00:00:00 Completed [facility] Influenza Virus Vaccine Quad .5 mL IM 6+ MO 2019-10-04 00:00:00 Completed [facility] Influenza Virus Vaccine Quad .5 mL IM 6+ MO 2019-10-04 00:00:00 Completed [facility] Influenza Virus Vaccine Quad .5 mL IM 6+ MO 2019-10-04 00:00:00 Completed [facility] Influenza Virus Vaccine Quad .5 mL IM 6+ MO 2019-10-04 00:00:00 Completed [facility] Influenza Virus Vaccine Quad .5 mL IM 6+ MO 2019-10-04 00:00:00 Completed [facility] Influenza Virus Vaccine Quad .5 mL IM 6+ MO 2019-10-04 00:00:00 Completed [facility] Influenza Virus Vaccine Quad .5 mL IM 6+ MO 2019-10-04 00:00:00 Completed [facility] Influenza Virus Vaccine Quad .5 mL IM 6+ MO 2019-10-04 00:00:00 Completed [facility] Influenza Virus Vaccine Quad .5 mL IM 6+ MO 2019-10-04 00:00:00 Completed [facility] Influenza Virus Vaccine Quad .5 mL IM 6+ MO 2019-10-04 00:00:00 Completed [facility] Influenza Virus Vaccine Quad .5 mL IM 6+ MO 2019-10-04 00:00:00 Completed [facility] Influenza Virus Vaccine Quad .5 mL IM 6+ MO 2019-10-04 00:00:00 Completed [facility] Influenza Virus Vaccine Quad .5 mL IM 6+ MO 2019-10-04 00:00:00 Completed [facility] Influenza Virus Vaccine Quad .5 mL IM 6+ MO 2019-10-04 00:00:00 Completed [facility] Influenza Virus Vaccine Quad .5 mL IM 6+ MO 2019-10-04 00:00:00 Completed [facility] Influenza Virus Vaccine Quad .5 mL IM 6+ MO 2019-10-04 00:00:00 Completed [facility] Influenza Virus Vaccine Quad .5 mL IM 6+ MO 2019-10-04 00:00:00 Completed [facility] Influenza Virus Vaccine Quad .5 mL IM 6+ MO 2019-10-04 00:00:00 Completed [facility] Influenza Virus Vaccine Quad .5 mL IM 6+ MO 2019-10-04 00:00:00 Completed [facility] Influenza Virus Vaccine Quad .5 mL IM 6+ MO 2019-10-04 00:00:00 Completed [facility] Influenza Virus Vaccine Quad .5 mL IM 6+ MO 2019-10-04 00:00:00 Completed [facility] Influenza Virus Vaccine Quad .5 mL IM 6+ MO 2019-10-04 00:00:00 Completed [facility] Influenza Virus Vaccine Quad .5 mL IM 6+ MO (FLUZONE/FLULAVAL/FL UARIX) 2019-10-04 00:00:00 Completed [facility] Influenza Virus Vaccine Quad .5 mL IM 6+ MO (FLUZONE/FLULAVAL/FL UARIX) 2019-10-04 00:00:00 Completed [facility] Influenza Virus Vaccine Quad .5 mL IM 6+ MO (FLUZONE/FLULAVAL/FL UARIX) 2019-10-04 00:00:00 Completed [facility] Influenza Virus Vaccine Quad .5 mL IM 6+ MO (FLUZONE/FLULAVAL/FL UARIX) 2019-10-04 00:00:00 Completed [facility] Influenza Virus Vaccine Quad .5 mL IM 6+ MO (FLUZONE/FLULAVAL/FL UARIX) 2019-10-04 00:00:00 Completed [facility] Meningococcal Polysaccharide (groups A, C, Y and W-135) conjugate vaccine (MCV4P) 2010-05-25 00:00:00 Completed [facility] Meningococcal Polysaccharide (groups A, C, Y and W-135) conjugate vaccine (MCV4P) 2010-05-25 00:00:00 Completed [facility] Meningococcal Polysaccharide (groups A, C, Y and W-135) conjugate vaccine (MCV4P) 2010-05-25 00:00:00 Completed [facility] Meningococcal Polysaccharide (groups A, C, Y and W-135) conjugate vaccine (MCV4P) 2010-05-25 00:00:00 Completed [facility] Meningococcal Polysaccharide (groups A, C, Y and W-135) conjugate vaccine (MCV4P) 2010-05-25 00:00:00 Completed [facility] Meningococcal Polysaccharide (groups A, C, Y and W-135) conjugate vaccine (MCV4P) 2010-05-25 00:00:00 Completed [facility] Meningococcal Polysaccharide (groups A, C, Y and W-135) conjugate vaccine (MCV4P) 2010-05-25 00:00:00 Completed [facility] Meningococcal Polysaccharide (groups A, C, Y and W-135) conjugate vaccine (MCV4P) 2010-05-25 00:00:00 Completed [facility] Meningococcal Polysaccharide (groups A, C, Y and W-135) conjugate vaccine (MCV4P) 2010-05-25 00:00:00 Completed [facility] Meningococcal Polysaccharide (groups A, C, Y and W-135) conjugate vaccine (MCV4P) 2010-05-25 00:00:00 Completed [facility] Meningococcal Polysaccharide (groups A, C, Y and W-135) conjugate vaccine (MCV4P) 2010-05-25 00:00:00 Completed [facility] Meningococcal Polysaccharide (groups A, C, Y and W-135) conjugate vaccine (MCV4P) 2010-05-25 00:00:00 Completed [facility] Meningococcal Polysaccharide (groups A, C, Y and W-135) conjugate vaccine (MCV4P) 2010-05-25 00:00:00 Completed [facility] Meningococcal Polysaccharide (groups A, C, Y and W-135) conjugate vaccine (MCV4P) 2010-05-25 00:00:00 Completed [facility] Meningococcal Polysaccharide (groups A, C, Y and W-135) conjugate vaccine (MCV4P) 2010-05-25 00:00:00 Completed [facility] Meningococcal Polysaccharide (groups A, C, Y and W-135) conjugate vaccine (MCV4P) 2010-05-25 00:00:00 Completed [facility] Meningococcal Polysaccharide (groups A, C, Y and W-135) conjugate vaccine (MCV4P) 2010-05-25 00:00:00 Completed [facility] Meningococcal Polysaccharide (groups A, C, Y and W-135) conjugate vaccine (MCV4P) 2010-05-25 00:00:00 Completed [facility] Meningococcal Polysaccharide (groups A, C, Y and W-135) conjugate vaccine (MCV4P) 2010-05-25 00:00:00 Completed [facility] Meningococcal Polysaccharide (groups A, C, Y and W-135) conjugate vaccine (MCV4P) 2010-05-25 00:00:00 Completed [facility] Meningococcal Polysaccharide (groups A, C, Y and W-135) conjugate vaccine (MCV4P) 2010-05-25 00:00:00 Completed [facility] Meningococcal Polysaccharide (groups A, C, Y and W-135) conjugate vaccine (MCV4P) 2010-05-25 00:00:00 Completed [facility] Meningococcal Polysaccharide (groups A, C, Y and W-135) conjugate vaccine (MCV4P) 2010-05-25 00:00:00 Completed [facility] Meningococcal Polysaccharide (groups A, C, Y and W-135) conjugate vaccine (MCV4P) 2010-05-25 00:00:00 Completed [facility] Meningococcal Polysaccharide (groups A, C, Y and W-135) conjugate vaccine (MCV4P) 2010-05-25 00:00:00 Completed [facility] Meningococcal Polysaccharide (groups A, C, Y and W-135) conjugate vaccine (MCV4P) 2010-05-25 00:00:00 Completed [facility] Meningococcal Polysaccharide (groups A, C, Y and W-135) conjugate vaccine (MCV4P) 2010-05-25 00:00:00 Completed [facility] Influenza Virus Vaccine Quad .5 mL IM 6+ MO (FLUZONE/FLULAVAL/FL UARIX) Unknown Completed [facility] TDAP Unknown Completed [facility] HPV9 Unknown Completed [facility] MMR Unknown Completed [facility] HPV9 Unknown Completed [facility] Influenza Virus Vaccine Quad .5 mL IM 6+ MO (FLUZONE/FLULAVAL/FL UARIX) Unknown Completed [facility] Meningococcal Polysaccharide (groups A, C, Y and W-135) conjugate vaccine (MCV4P) Unknown Completed [facility] HPV9 Unknown Completed [facility] Influenza Virus Vaccine Quad IM, Preserv and ABX Free 6 MO-64 YRS (FLUCELVAX) Unknown Completed [facility] SARS-COV-2 COVID-19 PFIZER VACCINE Unknown Completed [facility] SARS-COV-2 COVID-19 PFIZER VACCINE Unknown Completed [facility] Influenza Virus Vaccine Quad .5 mL IM 6+ MO (FLUZONE/FLULAVAL/FL UARIX) Unknown Completed [facility] TDAP Unknown Completed [facility] HPV9 Unknown Completed [facility] MMR Unknown Completed [facility] HPV9 Unknown Completed [facility] Influenza Virus Vaccine Quad .5 mL IM 6+ MO (FLUZONE/FLULAVAL/FL UARIX) Unknown Completed [facility] Meningococcal Polysaccharide (groups A, C, Y and W-135) conjugate vaccine (MCV4P) Unknown Completed [facility] HPV9 Unknown Completed [facility] Influenza Virus Vaccine Quad IM, Preserv and ABX Free 6 MO-64 YRS (FLUCELVAX) Unknown Completed [facility] SARS-COV-2 COVID-19 PFIZER VACCINE Unknown Completed [facility] SARS-COV-2 COVID-19 PFIZER VACCINE Unknown Completed [facility] Influenza Virus Vaccine Quad .5 mL IM 6+ MO (FLUZONE/FLULAVAL/FL UARIX) Unknown Completed [facility] TDAP Unknown Completed [facility] HPV9 Unknown Completed [facility] MMR Unknown Completed [facility] HPV9 Unknown Completed [facility] Influenza Virus Vaccine Quad .5 mL IM 6+ MO (FLUZONE/FLULAVAL/FL UARIX) Unknown Completed [facility] Meningococcal Polysaccharide (groups A, C, Y and W-135) conjugate vaccine (MCV4P) Unknown Completed [facility] HPV9 Unknown Completed [facility] Influenza Virus Vaccine Quad IM, Preserv and ABX Free 6 MO-64 YRS (FLUCELVAX) Unknown Completed [facility] SARS-COV-2 COVID-19 PFIZER VACCINE Unknown Completed [facility] SARS-COV-2 COVID-19 PFIZER VACCINE Unknown Completed [facility] Influenza Virus Vaccine Quad .5 mL IM 6+ MO (FLUZONE/FLULAVAL/FL UARIX) Unknown Completed [facility] TDAP Unknown Completed [facility] HPV9 Unknown Completed [facility] MMR Unknown Completed [facility] HPV9 Unknown Completed [facility] Influenza Virus Vaccine Quad .5 mL IM 6+ MO (FLUZONE/FLULAVAL/FL UARIX) Unknown Completed [facility] Meningococcal Polysaccharide (groups A, C, Y and W-135) conjugate vaccine (MCV4P) Unknown Completed [facility] HPV9 Unknown Completed [facility] Influenza Virus Vaccine Quad IM, Preserv and ABX Free 6 MO-64 YRS (FLUCELVAX) Unknown Completed [facility] SARS-COV-2 COVID-19 PFIZER VACCINE Unknown Completed [facility] SARS-COV-2 COVID-19 PFIZER VACCINE Unknown Completed [facility] Influenza Virus Vaccine Quad IM, Preserv and ABX Free 6 MO-64 YRS (FLUCELVAX) Unknown Completed [facility] Influenza Virus Vaccine Quad .5 mL IM 6+ MO (FLUZONE/FLULAVAL/FL UARIX) Unknown Completed [facility] TDAP Unknown Completed [facility] HPV9 Unknown Completed [facility] MMR Unknown Completed [facility] HPV9 Unknown Completed [facility] Influenza Virus Vaccine Quad .5 mL IM 6+ MO (FLUZONE/FLULAVAL/FL UARIX) Unknown Completed [facility] Meningococcal Polysaccharide (groups A, C, Y and W-135) conjugate vaccine (MCV4P) Unknown Completed [facility] HPV9 Unknown Completed [facility] Influenza Virus Vaccine Quad IM, Preserv and ABX Free 6 MO-64 YRS (FLUCELVAX) Unknown Completed [facility] SARS-COV-2 COVID-19 PFIZER VACCINE Unknown Completed [facility] SARS-COV-2 COVID-19 PFIZER VACCINE Unknown Completed [facility] Influenza Virus Vaccine Quad IM, Preserv and ABX Free 6 MO-64 YRS (FLUCELVAX) Unknown Completed [facility] Influenza Virus Vaccine Quad .5 mL IM 6+ MO (FLUZONE/FLULAVAL/FL UARIX) Unknown Completed [facility] TDAP Unknown Completed [facility] HPV9 Unknown Completed [facility] MMR Unknown Completed [facility] HPV9 Unknown Completed [facility] Influenza Virus Vaccine Quad .5 mL IM 6+ MO (FLUZONE/FLULAVAL/FL UARIX) Unknown Completed [facility] Meningococcal Polysaccharide (groups A, C, Y and W-135) conjugate vaccine (MCV4P) Unknown Completed [facility] HPV9 Unknown Completed [facility] Influenza Virus Vaccine Quad IM, Preserv and ABX Free 6 MO-64 YRS (FLUCELVAX) Unknown Completed [facility] SARS-COV-2 COVID-19 PFIZER VACCINE Unknown Completed [facility] SARS-COV-2 COVID-19 PFIZER VACCINE Unknown Completed [facility] Influenza Virus Vaccine Quad IM, Preserv and ABX Free 6 MO-64 YRS (FLUCELVAX) Unknown Completed [facility] Influenza Virus Vaccine Quad .5 mL IM 6+ MO (FLUZONE/FLULAVAL/FL UARIX) Unknown Completed [facility] TDAP Unknown Completed [facility] HPV9 Unknown Completed [facility] MMR Unknown Completed [facility] HPV9 Unknown Completed [facility] Influenza Virus Vaccine Quad .5 mL IM 6+ MO (FLUZONE/FLULAVAL/FL UARIX) Unknown Completed [facility] Meningococcal Polysaccharide (groups A, C, Y and W-135) conjugate vaccine (MCV4P) Unknown Completed [facility] HPV9 Unknown Completed [facility] Influenza Virus Vaccine Quad IM, Preserv and ABX Free 6 MO-64 YRS (FLUCELVAX) Unknown Completed [facility] SARS-COV-2 COVID-19 PFIZER VACCINE Unknown Completed [facility] SARS-COV-2 COVID-19 PFIZER VACCINE Unknown Completed [facility] Influenza Virus Vaccine Quad IM, Preserv and ABX Free 6 MO-64 YRS (FLUCELVAX) Unknown Completed [facility] Influenza Virus Vaccine Quad .5 mL IM 6+ MO (FLUZONE/FLULAVAL/FL UARIX) Unknown Completed [facility] TDAP Unknown Completed [facility] HPV9 Unknown Completed [facility] MMR Unknown Completed [facility] HPV9 Unknown Completed [facility] Influenza Virus Vaccine Quad .5 mL IM 6+ MO (FLUZONE/FLULAVAL/FL UARIX) Unknown Completed [facility] Meningococcal Polysaccharide (groups A, C, Y and W-135) conjugate vaccine (MCV4P) Unknown Completed [facility] HPV9 Unknown Completed [facility] Influenza Virus Vaccine Quad IM, Preserv and ABX Free 6 MO-64 YRS (FLUCELVAX) Unknown Completed [facility] SARS-COV-2 COVID-19 PFIZER VACCINE Unknown Completed [facility] SARS-COV-2 COVID-19 PFIZER VACCINE Unknown Completed [facility] Influenza Virus Vaccine Quad IM, Preserv and ABX Free 6 MO-64 YRS (FLUCELVAX) Unknown Completed [facility] TDAP Unknown Completed [facility] Influenza Virus Vaccine Quad .5 mL IM 6+ MO (FLUZONE/FLULAVAL/FL UARIX) Unknown Completed [facility] TDAP Unknown Completed [facility] HPV9 Unknown Completed [facility] MMR Unknown Completed [facility] HPV9 Unknown Completed [facility] Influenza Virus Vaccine Quad .5 mL IM 6+ MO (FLUZONE/FLULAVAL/FL UARIX) Unknown Completed [facility] Meningococcal Polysaccharide (groups A, C, Y and W-135) conjugate vaccine (MCV4P) Unknown Completed [facility] HPV9 Unknown Completed [facility] Influenza Virus Vaccine Quad IM, Preserv and ABX Free 6 MO-64 YRS (FLUCELVAX) Unknown Completed [facility] SARS-COV-2 COVID-19 PFIZER VACCINE Unknown Completed [facility] SARS-COV-2 COVID-19 PFIZER VACCINE Unknown Completed [facility] Influenza Virus Vaccine Quad IM, Preserv and ABX Free 6 MO-64 YRS (FLUCELVAX) Unknown Completed [facility] TDAP Unknown Completed [facility] Influenza Virus Vaccine Quad .5 mL IM 6+ MO (FLUZONE/FLULAVAL/FL UARIX) Unknown Completed [facility] TDAP Unknown Completed [facility] HPV9 Unknown Completed [facility] MMR Unknown Completed [facility] HPV9 Unknown Completed [facility] Influenza Virus Vaccine Quad .5 mL IM 6+ MO (FLUZONE/FLULAVAL/FL UARIX) Unknown Completed [facility] Meningococcal Polysaccharide (groups A, C, Y and W-135) conjugate vaccine (MCV4P) Unknown Completed [facility] HPV9 Unknown Completed [facility] Influenza Virus Vaccine Quad IM, Preserv and ABX Free 6 MO-64 YRS (FLUCELVAX) Unknown Completed [facility] SARS-COV-2 COVID-19 PFIZER VACCINE Unknown Completed [facility] SARS-COV-2 COVID-19 PFIZER VACCINE Unknown Completed [facility] Influenza Virus Vaccine Quad IM, Preserv and ABX Free 6 MO-64 YRS (FLUCELVAX) Unknown Completed [facility] TDAP Unknown Completed [facility] Influenza Virus Vaccine Quad .5 mL IM 6+ MO (FLUZONE/FLULAVAL/FL UARIX) Unknown Completed [facility] TDAP Unknown Completed [facility] HPV9 Unknown Completed [facility] MMR Unknown Completed [facility] HPV9 Unknown Completed [facility] Influenza Virus Vaccine Quad .5 mL IM 6+ MO (FLUZONE/FLULAVAL/FL UARIX) Unknown Completed [facility] Meningococcal Polysaccharide (groups A, C, Y and W-135) conjugate vaccine (MCV4P) Unknown Completed [facility] HPV9 Unknown Completed [facility] Influenza Virus Vaccine Quad IM, Preserv and ABX Free 6 MO-64 YRS (FLUCELVAX) Unknown Completed [facility] SARS-COV-2 COVID-19 PFIZER VACCINE Unknown Completed [facility] SARS-COV-2 COVID-19 PFIZER VACCINE Unknown Completed [facility] Influenza Virus Vaccine Quad IM, Preserv and ABX Free 6 MO-64 YRS (FLUCELVAX) Unknown Completed [facility] TDAP Unknown Completed [facility] Influenza Virus Vaccine Quad .5 mL IM 6+ MO (FLUZONE/FLULAVAL/FL UARIX) Unknown Completed [facility] TDAP Unknown Completed [facility] HPV9 Unknown Completed [facility] MMR Unknown Completed [facility] HPV9 Unknown Completed [facility] Influenza Virus Vaccine Quad .5 mL IM 6+ MO (FLUZONE/FLULAVAL/FL UARIX) Unknown Completed [facility] Meningococcal Polysaccharide (groups A, C, Y and W-135) conjugate vaccine (MCV4P) Unknown Completed [facility] HPV9 Unknown Completed [facility] Influenza Virus Vaccine Quad IM, Preserv and ABX Free 6 MO-64 YRS (FLUCELVAX) Unknown Completed [facility] SARS-COV-2 COVID-19 PFIZER VACCINE Unknown Completed [facility] SARS-COV-2 COVID-19 PFIZER VACCINE Unknown Completed [facility] Influenza Virus Vaccine Quad IM, Preserv and ABX Free 6 MO-64 YRS (FLUCELVAX) Unknown Completed [facility] TDAP Unknown Completed [facility] Influenza Virus Vaccine Quad .5 mL IM 6+ MO (FLUZONE/FLULAVAL/FL UARIX) Unknown Completed [facility] TDAP Unknown Completed [facility] HPV9 Unknown Completed [facility] MMR Unknown Completed [facility] HPV9 Unknown Completed [facility] Influenza Virus Vaccine Quad .5 mL IM 6+ MO (FLUZONE/FLULAVAL/FL UARIX) Unknown Completed [facility] Meningococcal Polysaccharide (groups A, C, Y and W-135) conjugate vaccine (MCV4P) Unknown Completed [facility] HPV9 Unknown Completed [facility] Influenza Virus Vaccine Quad IM, Preserv and ABX Free 6 MO-64 YRS (FLUCELVAX) Unknown Completed [facility] SARS-COV-2 COVID-19 PFIZER VACCINE Unknown Completed [facility] SARS-COV-2 COVID-19 PFIZER VACCINE Unknown Completed [facility] Influenza Virus Vaccine Quad IM, Preserv and ABX Free 6 MO-64 YRS (FLUCELVAX) Unknown Completed [facility] TDAP Unknown Completed [facility] Influenza Virus Vaccine Quad .5 mL IM 6+ MO (FLUZONE/FLULAVAL/FL UARIX) Unknown Completed [facility] TDAP Unknown Completed [facility] HPV9 Unknown Completed [facility] MMR Unknown Completed [facility] HPV9 Unknown Completed [facility] Influenza Virus Vaccine Quad .5 mL IM 6+ MO (FLUZONE/FLULAVAL/FL UARIX) Unknown Completed [facility] Meningococcal Polysaccharide (groups A, C, Y and W-135) conjugate vaccine (MCV4P) Unknown Completed [facility] HPV9 Unknown Completed [facility] Influenza Virus Vaccine Quad IM, Preserv and ABX Free 6 MO-64 YRS (FLUCELVAX) Unknown Completed [facility] SARS-COV-2 COVID-19 PFIZER VACCINE Unknown Completed [facility] SARS-COV-2 COVID-19 PFIZER VACCINE Unknown Completed [facility] Influenza Virus Vaccine Quad IM, Preserv and ABX Free 6 MO-64 YRS (FLUCELVAX) Unknown Completed [facility] TDAP Unknown Completed [facility] Influenza Virus Vaccine Quad .5 mL IM 6+ MO (FLUZONE/FLULAVAL/FL UARIX) Unknown Completed [facility] TDAP Unknown Completed [facility] HPV9 Unknown Completed [facility] MMR Unknown Completed [facility] HPV9 Unknown Completed [facility] Influenza Virus Vaccine Quad .5 mL IM 6+ MO (FLUZONE/FLULAVAL/FL UARIX) Unknown Completed [facility] Meningococcal Polysaccharide (groups A, C, Y and W-135) conjugate vaccine (MCV4P) Unknown Completed [facility] HPV9 Unknown Completed [facility] Influenza Virus Vaccine Quad IM, Preserv and ABX Free 6 MO-64 YRS (FLUCELVAX) Unknown Completed [facility] SARS-COV-2 COVID-19 PFIZER VACCINE Unknown Completed [facility] SARS-COV-2 COVID-19 PFIZER VACCINE Unknown Completed [facility] Influenza Virus Vaccine Quad IM, Preserv and ABX Free 6 MO-64 YRS (FLUCELVAX) Unknown Completed [facility] TDAP Unknown Completed [facility] Influenza Virus Vaccine Quad .5 mL IM 6+ MO (FLUZONE/FLULAVAL/FL UARIX) Unknown Completed [facility] TDAP Unknown Completed [facility] HPV9 Unknown Completed [facility] MMR Unknown Completed [facility] HPV9 Unknown Completed [facility] Influenza Virus Vaccine Quad .5 mL IM 6+ MO (FLUZONE/FLULAVAL/FL UARIX) Unknown Completed [facility] Meningococcal Polysaccharide (groups A, C, Y and W-135) conjugate vaccine (MCV4P) Unknown Completed [facility] HPV9 Unknown Completed [facility] Influenza Virus Vaccine Quad IM, Preserv and ABX Free 6 MO-64 YRS (FLUCELVAX) Unknown Completed [facility] SARS-COV-2 COVID-19 PFIZER VACCINE Unknown Completed [facility] SARS-COV-2 COVID-19 PFIZER VACCINE Unknown Completed [facility] Influenza Virus Vaccine Quad IM, Preserv and ABX Free 6 MO-64 YRS (FLUCELVAX) Unknown Completed [facility] TDAP Unknown Completed [facility] Influenza Virus Vaccine Quad .5 mL IM 6+ MO (FLUZONE/FLULAVAL/FL UARIX) Unknown Completed [facility] TDAP Unknown Completed [facility] HPV9 Unknown Completed [facility] MMR Unknown Completed [facility] HPV9 Unknown Completed [facility] Influenza Virus Vaccine Quad .5 mL IM 6+ MO (FLUZONE/FLULAVAL/FL UARIX) Unknown Completed [facility] Meningococcal Polysaccharide (groups A, C, Y and W-135) conjugate vaccine (MCV4P) Unknown Completed [facility] HPV9 Unknown Completed [facility] Influenza Virus Vaccine Quad IM, Preserv and ABX Free 6 MO-64 YRS (FLUCELVAX) Unknown Completed [facility] SARS-COV-2 COVID-19 PFIZER VACCINE Unknown Completed [facility] SARS-COV-2 COVID-19 PFIZER VACCINE Unknown Completed [facility] Influenza Virus Vaccine Quad IM, Preserv and ABX Free 6 MO-64 YRS (FLUCELVAX) Unknown Completed [facility] TDAP Unknown Completed [facility] Influenza Virus Vaccine Quad .5 mL IM 6+ MO (FLUZONE/FLULAVAL/FL UARIX) Unknown Completed [facility] TDAP Unknown Completed [facility] HPV9 Unknown Completed [facility] MMR Unknown Completed [facility] HPV9 Unknown Completed [facility] Influenza Virus Vaccine Quad .5 mL IM 6+ MO (FLUZONE/FLULAVAL/FL UARIX) Unknown Completed [facility] Meningococcal Polysaccharide (groups A, C, Y and W-135) conjugate vaccine (MCV4P) Unknown Completed [facility] HPV9 Unknown Completed [facility] Influenza Virus Vaccine Quad IM, Preserv and ABX Free 6 MO-64 YRS (FLUCELVAX) Unknown Completed [facility] SARS-COV-2 COVID-19 PFIZER VACCINE Unknown Completed [facility] SARS-COV-2 COVID-19 PFIZER VACCINE Unknown Completed [facility] Influenza Virus Vaccine Quad IM, Preserv and ABX Free 6 MO-64 YRS (FLUCELVAX) Unknown Completed [facility] TDAP Unknown Completed [facility] Influenza Virus Vaccine Quad .5 mL IM 6+ MO (FLUZONE/FLULAVAL/FL UARIX) Unknown Completed [facility] TDAP Unknown Completed [facility] HPV9 Unknown Completed [facility] MMR Unknown Completed [facility] HPV9 Unknown Completed [facility] Influenza Virus Vaccine Quad .5 mL IM 6+ MO (FLUZONE/FLULAVAL/FL UARIX) Unknown Completed [facility] Meningococcal Polysaccharide (groups A, C, Y and W-135) conjugate vaccine (MCV4P) Unknown Completed [facility] HPV9 Unknown Completed [facility] Influenza Virus Vaccine Quad IM, Preserv and ABX Free 6 MO-64 YRS (FLUCELVAX) Unknown Completed [facility] SARS-COV-2 COVID-19 PFIZER VACCINE Unknown Completed [facility] SARS-COV-2 COVID-19 PFIZER VACCINE Unknown Completed [facility] Influenza Virus Vaccine Quad IM, Preserv and ABX Free 6 MO-64 YRS (FLUCELVAX) Unknown Completed [facility] TDAP Unknown Completed [facility] Influenza Virus Vaccine Quad .5 mL IM 6+ MO (FLUZONE/FLULAVAL/FL UARIX) Unknown Completed [facility] TDAP Unknown Completed [facility] HPV9 Unknown Completed [facility] MMR Unknown Completed [facility] HPV9 Unknown Completed [facility] Influenza Virus Vaccine Quad .5 mL IM 6+ MO (FLUZONE/FLULAVAL/FL UARIX) Unknown Completed [facility] Meningococcal Polysaccharide (groups A, C, Y and W-135) conjugate vaccine (MCV4P) Unknown Completed [facility] HPV9 Unknown Completed [facility] Influenza Virus Vaccine Quad IM, Preserv and ABX Free 6 MO-64 YRS (FLUCELVAX) Unknown Completed [facility] SARS-COV-2 COVID-19 PFIZER VACCINE Unknown Completed [facility] SARS-COV-2 COVID-19 PFIZER VACCINE Unknown Completed [facility] Influenza Virus Vaccine Quad IM, Preserv and ABX Free 6 MO-64 YRS (FLUCELVAX) Unknown Completed [facility] TDAP Unknown Completed [facility] Influenza Virus Vaccine Quad .5 mL IM 6+ MO (FLUZONE/FLULAVAL/FL UARIX) Unknown Completed [facility] TDAP Unknown Completed [facility] HPV9 Unknown Completed [facility] MMR Unknown Completed [facility] HPV9 Unknown Completed [facility] Influenza Virus Vaccine Quad .5 mL IM 6+ MO (FLUZONE/FLULAVAL/FL UARIX) Unknown Completed [facility] Meningococcal Polysaccharide (groups A, C, Y and W-135) conjugate vaccine (MCV4P) Unknown Completed [facility] HPV9 Unknown Completed [facility] Influenza Virus Vaccine Quad IM, Preserv and ABX Free 6 MO-64 YRS (FLUCELVAX) Unknown Completed [facility] SARS-COV-2 COVID-19 PFIZER VACCINE Unknown Completed [facility] SARS-COV-2 COVID-19 PFIZER VACCINE Unknown Completed [facility] Influenza Virus Vaccine Quad IM, Preserv and ABX Free 6 MO-64 YRS (FLUCELVAX) Unknown Completed [facility] TDAP Unknown Completed [facility] Influenza Virus Vaccine Quad .5 mL IM 6+ MO (FLUZONE/FLULAVAL/FL UARIX) Unknown Completed [facility] TDAP Unknown Completed [facility] HPV9 Unknown Completed [facility] MMR Unknown Completed [facility] HPV9 Unknown Completed [facility] Influenza Virus Vaccine Quad .5 mL IM 6+ MO (FLUZONE/FLULAVAL/FL UARIX) Unknown Completed [facility] Meningococcal Polysaccharide (groups A, C, Y and W-135) conjugate vaccine (MCV4P) Unknown Completed [facility] HPV9 Unknown Completed [facility] Influenza Virus Vaccine Quad IM, Preserv and ABX Free 6 MO-64 YRS (FLUCELVAX) Unknown Completed [facility] SARS-COV-2 COVID-19 PFIZER VACCINE Unknown Completed [facility] SARS-COV-2 COVID-19 PFIZER VACCINE Unknown Completed [facility] Influenza Virus Vaccine Quad IM, Preserv and ABX Free 6 MO-64 YRS (FLUCELVAX) Unknown Completed [facility] TDAP Unknown Completed [facility] Influenza Virus Vaccine Quad .5 mL IM 6+ MO (FLUZONE/FLULAVAL/FL UARIX) Unknown Completed [facility] TDAP Unknown Completed [facility] HPV9 Unknown Completed [facility] MMR Unknown Completed [facility] HPV9 Unknown Completed [facility] Influenza Virus Vaccine Quad .5 mL IM 6+ MO (FLUZONE/FLULAVAL/FL UARIX) Unknown Completed [facility] Meningococcal Polysaccharide (groups A, C, Y and W-135) conjugate vaccine (MCV4P) Unknown Completed [facility] HPV9 Unknown Completed [facility] Influenza Virus Vaccine Quad IM, Preserv and ABX Free 6 MO-64 YRS (FLUCELVAX) Unknown Completed [facility] SARS-COV-2 COVID-19 PFIZER VACCINE Unknown Completed [facility] SARS-COV-2 COVID-19 PFIZER VACCINE Unknown Completed [facility] Influenza Virus Vaccine Quad IM, Preserv and ABX Free 6 MO-64 YRS (FLUCELVAX) Unknown Completed [facility] TDAP Unknown Completed [facility] Influenza Virus Vaccine Quad .5 mL IM 6+ MO (FLUZONE/FLULAVAL/FL UARIX) Unknown Completed [facility] TDAP Unknown Completed [facility] HPV9 Unknown Completed [facility] MMR Unknown Completed [facility] HPV9 Unknown Completed [facility] Influenza Virus Vaccine Quad .5 mL IM 6+ MO (FLUZONE/FLULAVAL/FL UARIX) Unknown Completed [facility] Meningococcal Polysaccharide (groups A, C, Y and W-135) conjugate vaccine (MCV4P) Unknown Completed [facility] HPV9 Unknown Completed [facility] Influenza Virus Vaccine Quad IM, Preserv and ABX Free 6 MO-64 YRS (FLUCELVAX) Unknown Completed [facility] SARS-COV-2 COVID-19 PFIZER VACCINE Unknown Completed [facility] SARS-COV-2 COVID-19 PFIZER VACCINE Unknown Completed [facility] Influenza Virus Vaccine Quad IM, Preserv and ABX Free 6 MO-64 YRS (FLUCELVAX) Unknown Completed [facility] TDAP Unknown Completed [facility] Influenza Virus Vaccine Quad .5 mL IM 6+ MO (FLUZONE/FLULAVAL/FL UARIX) Unknown Completed [facility] TDAP Unknown Completed [facility] HPV9 Unknown Completed [facility] MMR Unknown Completed [facility] HPV9 Unknown Completed [facility] Influenza Virus Vaccine Quad .5 mL IM 6+ MO (FLUZONE/FLULAVAL/FL UARIX) Unknown Completed [facility] Meningococcal Polysaccharide (groups A, C, Y and W-135) conjugate vaccine (MCV4P) Unknown Completed [facility] HPV9 Unknown Completed [facility] Influenza Virus Vaccine Quad IM, Preserv and ABX Free 6 MO-64 YRS (FLUCELVAX) Unknown Completed [facility] SARS-COV-2 COVID-19 PFIZER VACCINE Unknown Completed [facility] SARS-COV-2 COVID-19 PFIZER VACCINE Unknown Completed [facility] Influenza Virus Vaccine Quad IM, Preserv and ABX Free 6 MO-64 YRS (FLUCELVAX) Unknown Completed [facility] TDAP Unknown Completed [facility] Influenza Virus Vaccine Quad .5 mL IM 6+ MO (FLUZONE/FLULAVAL/FL UARIX) Unknown Completed [facility] TDAP Unknown Completed [facility] HPV9 Unknown Completed [facility] MMR Unknown Completed [facility] HPV9 Unknown Completed [facility] Influenza Virus Vaccine Quad .5 mL IM 6+ MO (FLUZONE/FLULAVAL/FL UARIX) Unknown Completed [facility] Meningococcal Polysaccharide (groups A, C, Y and W-135) conjugate vaccine (MCV4P) Unknown Completed [facility] HPV9 Unknown Completed [facility] Influenza Virus Vaccine Quad IM, Preserv and ABX Free 6 MO-64 YRS (FLUCELVAX) Unknown Completed [facility] SARS-COV-2 COVID-19 PFIZER VACCINE Unknown Completed [facility] SARS-COV-2 COVID-19 PFIZER VACCINE Unknown Completed [facility] Influenza Virus Vaccine Quad IM, Preserv and ABX Free 6 MO-64 YRS (FLUCELVAX) Unknown Completed [facility] TDAP Unknown Completed [facility] Influenza Virus Vaccine Quad .5 mL IM 6+ MO (FLUZONE/FLULAVAL/FL UARIX) Unknown Completed [facility] TDAP Unknown Completed [facility] HPV9 Unknown Completed [facility] MMR Unknown Completed [facility] HPV9 Unknown Completed [facility] Influenza Virus Vaccine Quad .5 mL IM 6+ MO (FLUZONE/FLULAVAL/FL UARIX) Unknown Completed [facility] Meningococcal Polysaccharide (groups A, C, Y and W-135) conjugate vaccine (MCV4P) Unknown Completed [facility] HPV9 Unknown Completed [facility] Influenza Virus Vaccine Quad IM, Preserv and ABX Free 6 MO-64 YRS (FLUCELVAX) Unknown Completed [facility] SARS-COV-2 COVID-19 PFIZER VACCINE Unknown Completed [facility] SARS-COV-2 COVID-19 PFIZER VACCINE Unknown Completed [facility] Influenza Virus Vaccine Quad IM, Preserv and ABX Free 6 MO-64 YRS (FLUCELVAX) Unknown Completed [facility] TDAP Unknown Completed [facility] Vital Signs Vital Name Observation Time Observation Value Comments S ource Systolic blood pressure 2023-12-19 15:48:00 112 mm[Hg] [facility] Diastolic blood pressure 2023-12-19 15:48:00 65 mm[Hg] [facility] Heart rate 2023-12-19 15:48:00 87 /min [facility] Body temperature 2023-12-19 15:48:00 36.56 Janneth [facility] Respiratory rate 2023-12-19 15:48:00 17 /min [facility] Body height 2023-12-19 15:48:00 170.2 cm [facility] Body weight 2023-12-19 15:48:00 72.621 kg [facility] BMI 2023-12-19 15:48:00 25.08 kg/m2 [facility] Systolic blood pressure 2023-11-20 16:25:00 110 mm[Hg] [facility] Diastolic blood pressure 2023-11-20 16:25:00 71 mm[Hg] [facility] Heart rate 2023-11-20 16:25:00 65 /min [facility] Body temperature 2023-11-20 16:25:00 36.11 Janneth [facility] Respiratory rate 2023-11-20 16:25:00 19 /min [facility] Body height 2023-11-20 16:25:00 170.2 cm [facility] Body weight 2023-11-20 16:25:00 72.031 kg [facility] BMI 2023-11-20 16:25:00 24.87 kg/m2 [facility] Systolic blood pressure 2023-10-25 13:50:00 100 mm[Hg] [facility] Diastolic blood pressure 2023-10-25 13:50:00 71 mm[Hg] [facility] Heart rate 2023-10-25 13:50:00 67 /min [facility] Body temperature 2023-10-25 13:50:00 36.61 Janneth [facility] Respiratory rate 2023-10-25 13:50:00 18 /min [facility] Oxygen saturation in Arterial blood by Pulse oximetry 2023-10-25 13:50:00 97 /min [facility] Body height 2023-10-22 19:08:00 170.2 cm [facility] Body weight 2023-10-22 19:08:00 79.924 kg [facility] BMI 2023-10-22 19:08:00 27.60 kg/m2 [facility] Systolic blood pressure 2023-10-23 15:15:00 107 mm[Hg] [facility] Diastolic blood pressure 2023-10-23 15:15:00 69 mm[Hg] [facility] Heart rate 2023-10-23 15:15:00 57 /min [facility] Respiratory rate 2023-10-23 15:15:00 19 /min [facility] Oxygen saturation in Arterial blood by Pulse oximetry 2023-10-23 15:15:00 97 /min [facility] Body temperature 2023-10-23 15:00:00 36.5 Janneth [facility] Body height 2023-10-22 19:08:00 170.2 cm [facility] Body weight 2023-10-22 19:08:00 79.924 kg [facility] BMI 2023-10-22 19:08:00 27.60 kg/m2 [facility] Systolic blood pressure 2023-10-19 18:53:00 120 mm[Hg] [facility] Diastolic blood pressure 2023-10-19 18:53:00 70 mm[Hg] [facility] Heart rate 2023-10-19 18:53:00 88 /min [facility] Body temperature 2023-10-19 18:53:00 35.83 Janneth [facility] Respiratory rate 2023-10-19 18:53:00 18 /min [facility] Body height 2023-10-19 18:53:[address] [facility] Body weight 2023-10-19 18:53:[address] [facility] BMI 2023-10-19 18:53:00 27.60 kg/m2 [facility] Systolic blood pressure 2023-10-12 21:29:00 131 mm[Hg] [facility] Diastolic blood pressure 2023-10-12 21:29:00 68 mm[Hg] [facility] Heart rate 2023-10-12 21:29:00 100 /min [facility] Body temperature 2023-10-12 21:29:00 36.11 Janneth [facility] Respiratory rate 2023-10-12 21:29:00 18 /min [facility] Body height 2023-10-12 21:29:[address] [facility] Body weight 2023-10-12 21:29:[address] [facility] BMI 2023-10-12 21:29:00 27.43 kg/m2 [facility] Systolic blood pressure 2023-10-03 17:08:00 139 mm[Hg] [facility] Diastolic blood pressure 2023-10-03 17:08:00 64 mm[Hg] [facility] Heart rate 2023-10-03 17:08:00 84 /min [facility] Body temperature 2023-10-03 17:08:00 36.11 Janneth [facility] Respiratory rate 2023-10-03 17:08:00 18 /min [facility] Body height 2023-10-03 17:08:[address] [facility] Body weight 2023-10-03 17:08:[address] [facility] BMI 2023-10-03 17:08:00 26.84 kg/m2 [facility] Systolic blood pressure 2023-09-28 17:19:00 102 mm[Hg] [facility] Diastolic blood pressure 2023-09-28 17:19:00 65 mm[Hg] [facility] Heart rate 2023-09-28 17:19:00 85 /min [facility] Body temperature 2023-09-28 17:19:00 36.39 Janneth [facility] Respiratory rate 2023-09-28 17:19:00 18 /min [facility] Body weight 2023-09-28 17:19:[address] [facility] BMI 2023-09-28 17:19:00 27.16 kg/m2 [facility] Systolic blood pressure 2023-09-15 14:55:00 127 mm[Hg] [facility] Diastolic blood pressure 2023-09-15 14:55:00 74 mm[Hg] [facility] Heart rate 2023-09-15 14:55:00 89 /min [facility] Body temperature 2023-09-15 14:55:00 36.33 Janneth [facility] Respiratory rate 2023-09-15 14:55:00 18 /min [facility] Body height 2023-09-15 14:55:00 170.2 cm [facility] Body weight 2023-09-15 14:55:00 78.382 kg [facility] BMI 2023-09-15 14:55:00 27.06 kg/m2 [facility] Systolic blood pressure 2023-08-29 22:17:00 128 mm[Hg] [facility] Diastolic blood pressure 2023-08-29 22:17:00 76 mm[Hg] [facility] Heart rate 2023-08-29 22:17:00 88 /min [facility] Body temperature 2023-08-29 22:17:00 36.28 Janneth [facility] Respiratory rate 2023-08-29 22:17:00 18 /min [facility] Body height 2023-08-29 22:17:[address] [facility] Body weight 2023-08-29 22:17:[address] [facility] BMI 2023-08-29 22:17:00 27.13 kg/m2 [facility] [facility] Systolic blood pressure 2023-08-15 21:14:00 122 mm[Hg] [facility] Diastolic blood pressure 2023-08-15 21:14:00 66 mm[Hg] [facility] Heart rate 2023-08-15 21:14:00 93 /min [facility] Body temperature 2023-08-15 21:14:00 36.22 Janneth [facility] Respiratory rate 2023-08-15 21:14:00 18 /min [facility] Body height 2023-08-15 21:14:00 170.2 cm [facility] Body weight 2023-08-15 21:14:00 77.31 kg [facility] BMI 2023-08-15 21:14:00 26.69 kg/m2 Univ [facility] Systolic blood pressure 2023-07-27 14:50:00 112 mm[Hg] [facility] Diastolic blood pressure 2023-07-27 14:50:00 68 mm[Hg] [facility] Heart rate 2023-07-27 14:50:00 92 /min [facility] Body temperature 2023-07-27 14:50:00 36.72 Janneth [facility] Respiratory rate 2023-07-27 14:50:00 18 /min [facility] Body height 2023-07-27 14:50:[address] [facility] Body weight 2023-07-27 14:50:00 75.751 kg [facility] BMI 2023-07-27 14:50:00 26.16 kg/m2 Univ [facility] Systolic blood pressure 2023-07-13 13:15:00 104 mm[Hg] [facility] Diastolic blood pressure 2023-07-13 13:15:00 69 mm[Hg] [facility] Heart rate 2023-07-13 13:15:00 80 /min [facility] Body temperature 2023-07-13 13:15:00 36.67 Janneth [facility] Respiratory rate 2023-07-13 13:15:00 18 /min [facility] Body height 2023-07-13 13:15:[address] [facility] Body weight 2023-07-13 13:15:[address] [facility] BMI 2023-07-13 13:15:00 25.73 kg/m2 Univ [facility] Systolic blood pressure 2023-06-26 15:03:00 118 mm[Hg] [facility] Diastolic blood pressure 2023-06-26 15:03:00 71 mm[Hg] [facility] Heart rate 2023-06-26 15:03:00 92 /min [facility] Body temperature 2023-06-26 15:03:00 36.17 Janneth [facility] Respiratory rate 2023-06-26 15:03:00 18 /min [facility] Body height 2023-06-26 15:03:[address] [facility] Body weight 2023-06-26 15:03:[address] [facility] BMI 2023-06-26 15:03:00 25.14 kg/m2 Univ [facility] Systolic blood pressure 2023-06-15 17:55:00 101 mm[Hg] [facility] Diastolic blood pressure 2023-06-15 17:55:00 64 mm[Hg] [facility] Heart rate 2023-06-15 17:55:00 98 /min [facility] Body temperature 2023-06-15 17:55:00 36.06 Janneth [facility] Respiratory rate 2023-06-15 17:55:00 18 /min [facility] Body height 2023-06-15 17:55:[address] [facility] Body weight 2023-06-15 17:55:00 72.848 kg [facility] BMI 2023-06-15 17:55:00 25.15 kg/m2 Univ [facility] Systolic blood pressure 2023-05-18 18:21:00 112 mm[Hg] [facility] Diastolic blood pressure 2023-05-18 18:21:00 67 mm[Hg] [facility] Heart rate 2023-05-18 18:21:00 89 /min [facility] Body temperature 2023-05-18 18:21:00 36.5 Janneth [facility] Respiratory rate 2023-05-18 18:21:00 17 /min [facility] Body height 2023-05-18 18:21:[address] [facility] Body weight 2023-05-18 18:21:00 69.536 kg [facility] BMI 2023-05-18 18:21:00 24.01 kg/m2 Univ [facility] Systolic blood pressure 2023-05-05 13:38:00 113 mm[Hg] [facility] Diastolic blood pressure 2023-05-05 13:38:00 73 mm[Hg] [facility] Heart rate 2023-05-05 13:38:00 90 /min [facility] Body temperature 2023-05-05 13:38:00 36.33 Janneth [facility] Respiratory rate 2023-05-05 13:38:00 18 /min [facility] Body height 2023-05-05 13:38:[address] [facility] Body weight 2023-05-05 13:38:00 68.72 kg [facility] BMI 2023-05-05 13:38:00 23.73 kg/m2 [facility] Systolic blood pressure 2023-03-30 20:08:00 116 mm[Hg] [facility] Diastolic blood pressure 2023-03-30 20:08:00 80 mm[Hg] [facility] Heart rate 2023-03-30 20:08:00 93 /min [facility] Body temperature 2023-03-30 20:08:00 36.28 Janneth [facility] Respiratory rate 2023-03-30 20:08:00 18 /min [facility] Body height 2023-03-30 20:08:00 [facility].2 [facility] 2023-03-30 20:08:00 67.302 kg [facility] BMI 2023-03-30 20:08:00 23.24 kg/m2 Univ [facility] Systolic blood pressure 2023-02-28 19:25:00 118 mm[Hg] [facility] Diastolic blood pressure 2023-02-28 19:25:00 80 mm[Hg] [facility] BMI 2023-02-28 19:24:00 23.83 kg/m2 [facility] Heart rate 2023-02-28 19:24:00 87 /min [facility] Body temperature 2023-02-28 19:24:00 36.33 Janneth [facility] Respiratory rate 2023-02-28 19:24:00 18 /min [facility] Body height 2023-02-28 19:24:[address] [facility] Body weight 2023-02-28 19:24:[address] [facility] Systolic blood pressure 2022-10-11 19:54:00 120 mm[Hg] [facility] Diastolic blood pressure 2022-10-11 19:54:00 83 mm[Hg] [facility] Heart rate 2022-10-11 19:54:00 79 /min [facility] Body temperature 2022-10-11 19:54:00 36.5 Janneth [facility] Respiratory rate 2022-10-11 19:54:00 18 /min [facility] Body height 2022-10-11 19:54:[address] [facility] Body weight 2022-10-11 19:54:[address] [facility] BMI 2022-10-11 19:54:00 23.71 kg/m2 Univ [facility] Systolic blood pressure 2022-08-25 15:40:00 125 mm[Hg] [facility] Diastolic blood pressure 2022-08-25 15:40:00 79 mm[Hg] [facility] Heart rate 2022-08-25 15:40:00 75 /min [facility] Body temperature 2022-08-25 15:40:00 36.61 Janneth [facility] Respiratory rate 2022-08-25 15:40:00 20 /min [facility] Body height 2022-08-25 15:40:[address] [facility] Body weight 2022-08-25 15:40:[address] [facility] BMI 2022-08-25 15:40:00 24.90 kg/m2 Univ [facility] Systolic blood pressure 2022-07-20 18:28:00 109 mm[Hg] [facility] Diastolic blood pressure 2022-07-20 18:28:00 77 mm[Hg] [facility] Heart rate 2022-07-20 18:28:00 80 /min [facility] Body temperature 2022-07-20 18:28:00 36.56 Janneth [facility] Respiratory rate 2022-07-20 18:28:00 18 /min [facility] Body weight 2022-07-20 18:28:[address] [facility] BMI 2022-07-20 18:28:00 25.83 kg/m2 [facility] Systolic blood pressure 2022-02-22 20:03:00 113 mm[Hg] [facility] Diastolic blood pressure 2022-02-22 20:03:00 64 mm[Hg] [facility] Heart rate 2022-02-22 20:03:00 74 /min [facility] Body temperature 2022-02-22 20:03:00 36.78 Janneth [facility] Respiratory rate 2022-02-22 20:03:00 20 /min [facility] Body height 2022-02-22 20:03:00 170.2 cm [facility] Body weight 2022-02-22 20:03:00 79.198 kg [facility] BMI 2022-02-22 20:03:00 27.35 kg/m2 [facility] Procedures Procedure Date / Time Performed Performing Clinician Source CBC WITH DIFF 2023-10-24 07:47:00 [facility] WITH DIFF 2023-10-24 07:47:00 [facility] TUBAL LIGATION 2023-10-23 13:50:[address] [facility] [facility] 2023-10-23 13:50:00 Zoya Marcos Un [facility] VENOUS CORD GAS 2023-10-23 07:57:00 El-Eishy, Alfarooq Y [facility] VENOUS CORD GAS 2023-10-23 07:57:00 El-Eishy, Alfarooq Y [facility] CENTRAL NEURAXIAL BLOCK 2023-10-23 02:01:00 Bam Severino [facility] CBC WITH DIFF 2023-10-22 19:52:00 El-Eishy, Alfarooq Y [facility] HEPATITIS B SURFACE ANTIGEN 2023-10-22 19:52:00 El-Eishy, Alfarooq Y [facility] HB ABO GROUPING 2023-10-22 19:52:00 El-Eishy, Alfarooq Y [facility] RHO (D) IMMUNE GLOBULIN 2023-10-22 19:52:00 Yamilex Duke [facility] HIV 1/2 AG-AB WITH REFLEX 2023-10-22 19:52:00 El-Eishy , Alfarooq Y [facility] SYPHILIS IGG/IGM 2023-10-22 19:52:00 El-Eishy, Alfaroo q Y [facility] CBC WITH DIFF 2023-10-22 19:52:00 El-Eishy, Alfarooq Y [facility] HEPATITIS B SURFACE ANTIGEN 2023-10-22 19:52:00 El-Eishy, Alfarooq Y [facility] HB ABO GROUPING 2023-10-22 19:52:00 El-Eishy, Alfarooq Y [facility] RHO (D) IMMUNE GLOBULIN 2023-10-22 19:52:00 Yamilex Duke [facility] HIV 1/2 AG-AB WITH REFLEX 2023-10-22 19:52:00 Watson Castanon Y [facility] SYPHILIS IGG/IGM 2023-10-22 19:52:00 Maribell Castanon Y [facility] POCT URINALYSIS 2023-10-12 21:35:00 Zulay Todd [facility] GC & CHLAMYDIA AMPLIFIED ASSAY 2023-10-03 17:38:00 Zulay Todd [facility] POCT URINALYSIS 2023-10-03 17:37:00 Zulay Todd [facility] CBC WITH DIFF 2023-10-03 17:31:00 Zulay Todd [facility] POCT URINALYSIS 2023-09-28 17:19:00 Zulay Todd [facility] POCT URINALYSIS 2023-09-15 14:58:00 Zulay Todd [facility] POCT URINALYSIS 2023-08-29 22:37:00 Zulay Todd [facility] HIV 1/2 AG-AB WITH REFLEX 2023-08-29 22:10:00 Zulay Nava [facility] POCT URINALYSIS 2023-08-15 21:18:00 Zulay Todd [facility] TDAP VACCINE, >11 YRS, IM 2023-08-15 21:15:47 Zulay Nava [facility] POCT URINALYSIS 2023-07-27 16:00:00 Zulay Todd [facility] STERILIZATION CONSENT FORM 2023-07-27 05:01:00 Doctor Unassigned, Speed [facility] POCT URINALYSIS 2023-07-13 13:30:00 Zulay Todd [facility] FLU VACC ([id number]), 6 MO-64 YRS, .5ML, IM, QUAD (FLUCELVAX) 2023-07-13 13:24:56 Angelita Wheeler [facility] POCT URINALYSIS 2023-07-13 13:18:00 Zulay Todd [facility] POCT URINALYSIS 2023-06-26 16:11:00 Zulay Todd [facility] POCT URINALYSIS 2023-06-15 18:32:00 Zulay Todd [facility] POCT MOLECULAR FLU 2023-06-15 18:28:00 Angelita Wheeler [facility] COVID-19 (MOLECULAR TESTING NUCLEIC ACID AMPLIFICATION) 2023-06-15 18:24:00 Angelita Wheeler [facility] LAB ONLY COVID INTERPRETATION 2023-06-15 18:24:00 Angelita Wheeler [facility] POCT MOLECULAR STREP 2023-06-15 18:23:00 Bryanna Wheeler [facility] SECOND AND THIRD TRIMESTER ULTRASOUND 2023-06-13 15:00:00 Zulay Todd [facility] SECOND AND THIRD TRIMESTER ULTRASOUND 2023-06-13 14:55:00 Zulay Todd [facility] POCT URINALYSIS 2023-05-18 00:00:00 Zulay Todd [facility] POCT URINALYSIS 2023-05-05 13:43:00 Zulay Todd [facility] MISCELLANEOUS SENDOUT TEST 2023-04-14 05:01:00 Doctor Unassigned, Speed [facility] POCT URINALYSIS 2023-03-30 20:11:00 Zulay Todd [facility] POCT URINALYSIS 2023-03-30 20:09:00 Zulay Todd [facility] POCT URINALYSIS W/O SPECIFIC GRAVITY 2023-02-28 19:23:00 Zulay Todd [facility] POCT TEST 2023-02-28 19:22:00 Altagracia Todd [facility] CONSENT/REFUSAL FOR DIAGNOSIS AND TREATMENT 2023-02-28 18:31:38 Doctor Unassigned, Speed [facility] POCT TEST 2022-10-11 20:02:00 Mati Tabares [facility] FLU VACC ([id number]), 6 MO-64 YRS, .5ML, IM, QUAD (FLUCELVAX) 2022-07-20 18:53:48 Jovan Reyna [facility] POCT TEST 2022-07-20 18:42:00 Jovan Reyna [facility] GC & CHLAMYDIA AMPLIFIED ASSAY 2022-02-22 20:57:00 Lara Tabares [facility] GALV ONLY - VAGINAL PATHOGENS BY NUCLEIC ACID TESTING 2022-02-22 20:57:00 Lara Tabares [facility] HIV 1/2 AG-AB WITH REFLEX 2022-02-22 20:57:00 Lara Tabares [facility] GALV ONLY - SYPHILIS IGG/IGM 2022-02-22 20:57:00 Lara Tabares [facility] POCT URINALYSIS W/O SPECIFIC GRAVITY 2022-02-22 00:00:00 Lara Tabares [facility] Encounters Start Date/Time End Date/Time Encounter Type Admission Type Attending [facility] Care Department Encounter ID Source 2021-08-13 01:59:49 Outpatient [facility] [id number] [facility] 2023-12-19 09:45:00 2023-12-19 10:42:11 Outpatient R LARA TABARES [facility] [id number] [facility] 2023-12-19 09:45:00 2023-12-19 10:42:11 Office Visit Lara Tabares [facility] [employer] [facility] 1.2.840.114 350.1.13.10 4.2.7.2.686 [id number] 107 [id number] [facility] 2023-12-12 10:30:00 2023-12-12 10:30:00 Outpatient R LARA TABARES [facility] [id number] [facility] 2023-11-20 10:15:00 2023-11-20 11:36:41 Outpatient R WILLIEGUERO LARA [facility] [id number] [facility] 2023-11-20 10:15:00 2023-11-20 11:36:41 Routine Visit Rayshawn Lara Blake [facility] HOT[employer]SE WORKER [facility] 1.2.840.114 350.1.13.10 4.2.7.2.686 [id number] 107 [id number] [facility] 2023-10-22 12:36:00 2023-10-25 13:33:00 Inpatient P ETIENNE BATISTAANAK [facility] [id number] [facility] 2023-10-22 12:36:00 2023-10-25 13:33:00 Hospital Encounter [facility] 1.2.840.114 350.1.13.10 4.2.7.2.686 [id number] [facility] 2023-10-23 08:00:00 2023-10-23 09:26:00 Surgery Zoya Marcos [facility] 1.2.840.114 350.1.13.10 4.2.7.2.686 [id number] [facility] 2023-10-22 19:58:00 2023-10-23 03:08:00 Anesthesia Event Bam Severino Brita [facility] 1.2.840.114 350.1.13.10 4.2.7.2.686 [id number] [facility] 2023-10-19 13:00:00 2023-10-19 13:13:08 Outpatient R ZULAY TODD [facility] [id number] [facility] 2023-10-19 13:00:00 2023-10-19 13:13:08 Routine Visit Zulay Todd [facility] [employer] WORKER [facility] 1.2.840.114 350.1.13.10 4.2.7.2.686 [id number] 107 [id number] [facility] 2023-10-12 15:45:00 2023-10-12 16:01:50 Outpatient R ZULAY TODD [facility] [id number] [facility] 2023-10-12 15:45:00 2023-10-12 16:01:50 Routine Visit Zulay Todd [facility] [employer]SE WORKER [facility] 1.840.114 350.1.13.10 4.2.7.2.686 [id number] 107 [id number] [facility] 2023-10-05 00:00:00 2023-10-05 00:00:00 Telephone Zulay Todd [facility] [employer] WORKER [facility] 1.84.114 350.1.13.10 4.2.7.2.686 [id number] 107 [id number] [facility] 2023-10-03 10:45:00 2023-10-03 11:32:01 Outpatient R LARA TABARES [facility] [id number] [facility] 2023-10-03 10:45:00 2023-10-03 11:32:01 Routine Visit Lara Tabares [facility] .840.114 350.1.13.10 4.2.7.2.686 [id number] 107 [id number] [facility] 2023-09-28 11:00:00 2023-09-28 12:02:40 Outpatient R ZULAY TODD [facility] [id number] [facility] 2023-09-28 11:00:00 2023-09-28 12:02:40 [facility] 1.84.114 350.1.13.10 4.2.7.2.686 [id number] 107 [id number] [facility] 2023-09-22 00:00:00 2023-09-22 00:00:00 Refill Lara Tabares [facility] [employer] WORKER [facility] 1.2840.114 350.1.13.10 4.2.7.2.686 [id number] 107 [id number] [facility] 2023-09-15 09:00:00 2023-09-15 09:29:23 Outpatient R LARA TABARES [facility] [id number] [facility] 2023-09-15 09:00:00 2023-09-15 09:29:23 Routine Visit Lara Tabares [facility] 1.840.114 350.1.13.10 4.2.7.2.686 [id number] 107 [id number] [facility] 2023-08-29 16:00:00 2023-08-29 16:36:17 Outpatient R ZULAY TODD [facility] [id number] [facility] 2023-08-29 16:00:00 2023-08-29 16:36:17 Routine Visit Zulay Todd [facility] [employer] WORKER [facility] 1.840.114 350.1.13.10 4.2.7.2.686 [id number] [facility] 2023-08-15 16:00:00 2023-08-15 16:39:11 Outpatient R ZULAY TODD [facility] [id number] [facility] 2023-08-15 16:00:00 2023-08-15 16:39:11 Routine Visit Zulay Todd [facility] [employer] WORKER [facility] 1.2840.114 350.1.13.10 4.2.7.2.686 [id number] 107 [id number] [facility] 2023-08-15 00:00:00 2023-08-15 00:00:00 Letter (Out) Zulay Todd [facility] [employer] WORKER [facility] 1.2840.114 350.1.13.10 4.2.7.2.686 [id number] [facility] 2023-08-10 11:00:00 2023-08-10 11:00:00 Outpatient R ZULAY TODD [facility] [id number] [facility] 2023-07-28 00:00:00 2023-07-28 00:00:00 Case Management Zulay Todd [facility] 1.840.114 350.1.13.10 4.2.7.2.686 [id number] [facility] 2023-07-27 09:45:00 2023-07-27 10:32:57 Outpatient R ZULAY TODD [facility] [id number] [facility] 2023-07-27 09:45:00 2023-07-27 10:32:57 Routine Visit Zulay Todd [facility] 1.84.114 350.1.13.10 4.2.7.2.686 [id number] 107 [id number] [facility] 2023-07-27 00:00:00 2023-07-27 00:00:00 Orders Only Doctor Unassigned, Speed [facility] 1..114 350.1.13.10 4.2.7.2.686 [id number] [facility] 2023-07-13 08:15:00 2023-07-13 09:04:44 Outpatient R ANGELITA WHEELER [facility] [id number] [facility] 2023-07-13 08:15:00 2023-07-13 09:04:44 Routine Visit Risk, Ang-Rmchp-N p/High Angelita Wheeler [facility] H[employer] WORKER [facility] 1.840.114 350.1.13.10 4.2.7.2.686 [id number] [facility] 2023-07-13 08:00:00 2023-07-13 08:00:00 Outpatient R [facility] [id number] [facility] 2023-06-26 09:30:00 2023-06-26 11:11:05 Outpatient R LARA TABARES [facility] [id number] [facility] 2023-06-26 09:30:00 2023-06-26 11:11:05 Routine Visit Provider, PierreRmchLara Hansen [facility] [employer] WORKER [facility] 1.84.114 350.1.13.10 4.2.7.2.686 [id number] 107 [id number] [facility] 2023-06-26 00:00:00 2023-06-26 00:00:00 Letter (Out) Franice Georges [facility] [employer] WORKER [facility] 1..84.114 350.1.13.10 4.2.7.2.686 [id number] 107 [id number] [facility] 2023-06-15 13:00:00 2023-06-15 13:30:17 Outpatient R ANGELITA WHEELER [facility] [id number] [facility] 2023-06-15 13:00:00 2023-06-15 13:30:17 Routine Visit Risk, Ang-Rmchp-N p/High Angelita Wheeler [facility] H[employer] WORKER [facility] 1..840.114 350.1.13.10 4.2.7.2.686 [id number] [facility] 2023-06-15 13:00:00 2023-06-15 13:00:00 Outpatient R ANGELITA WHEELER [facility] [id number] [facility] 2023-06-15 00:00:00 2023-06-15 00:00:00 [facility] 1..840.114 350.1.13.10 4.2.7.2.686 [id number] 107 [id number] [facility] 2023-06-14 00:00:00 2023-06-14 00:00:00 Case Management [facility] 1..840.114 350.1.13.10 4.2.7.2.686 [id number] [facility] 2023-06-13 09:00:00 2023-06-13 09:50:13 Outpatient P THAO GANT [facility] [id number] [facility] 2023-06-13 09:00:00 2023-06-13 09:50:13 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 Visit Ultrasound, Bal-Thao Ferraro [facility] [employer] WORKER [facility] 1..840.114 350.1.13.10 4.2.7.2.686 [id number] [facility] 2023-05-23 00:00:00 2023-05-23 00:00:00 Patient Secure g Madyson Arnold [facility] [employer] WORKER [facility] ELIZABETH CIFUENTES 1..840.114 350.1.13.10 4.2.7.2.686 [id number] [facility] 2023-05-18 13:00:00 2023-05-18 13:59:53 Outpatient ANGELITA STEELE [facility] [id number] [facility] 2023-05-18 13:00:00 2023-05-18 13:59:53 Routine Visit Risk, Ang-Rmchp-N p/High Angelita Wheeler [facility] [employer]OT[employer] WORKER [facility] & CHILD [facility] [id number] 350.1.13.10 [id number] [id number] [facility] 2023-05-05 11:00:00 2023-05-05 11:00:00 Routine Visit Zulay Todd [facility] [employer] WORKER [facility] & CHILD [facility] [id number] 350.1.13.10 [id number] [id number] [facility] 2023-05-05 11:00:00 2023-05-05 08:58:51 Outpatient R ZULAY TODD [facility] [id number] [facility] 2023-05-05 08:30:00 2023-05-05 08:30:00 Outpatient R LARA TABARES [facility] [id number] [facility] 2023-04-27 14:00:00 2023-04-27 14:00:00 Outpatient R [facility] [id number] [facility] 2023-04-24 13:00:00 2023-04-24 13:00:00 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 Visit Lab, Zee-Rmchp Thao Gant [facility] [employer] WORKER [facility] & CHILD [facility] [id number] 350.1.13.10 [id number] [id number] [facility] 2023-04-24 11:15:00 2023-04-24 12:00:00 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 Visit 1, [facility] CENTER HOTHOUSE WORKER [facility] CHILD [facility] 1.2840.114 350.1.13.10 4.2.7.2.686 [id number] [facility] 2023-04-24 13:00:00 2023-04-24 11:53:53 Outpatient THAO CARDONA [facility] [id number] [facility] 2023-04-24 00:00:00 2023-04-24 00:00:00 Case Management Zulay Todd [facility] HOTHOUSE WORKER [facility]ILD [facility] 1.2.840.114 350.1.13.10 4.2.7.2.686 [id number] 107 [id number] [facility] 2023-04-21 00:00:00 2023-04-21 00:00:00 Telephone Margie Robins [facility] [place] 1..840.114 350.1.13.10 4.2.7.2.686 [id number] [facility] 2023-04-21 00:00:00 2023-04-21 00:00:00 Patient Secure Msg Doctor Unassigned, Speed [facility] HOTHOUSE WORKER [facility] CHILD [facility] 1.2.840.114 350.1.13.10 4.2.7.2.686 [id number] 107 [id number] [facility] 2023-04-14 10:30:00 2023-04-14 11:20:33 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 Visit Lab[facility] HOTHOUSE WORKER [facility] CHILD [facility] 1..840.114 350.1.13.10 4.2.7.2.686 [id number] 107 [id number] [facility] 2023-04-14 09:45:00 2023-04-14 10:29:41 Outpatient MARGIE WEISS [facility] [id number] [facility] 2023-04-14 09:45:00 2023-04-14 10:29:41 Telemedici ne Visit Margie Robins Swetha [facility] HOTHOUSE WORKER [facility] CHILD [facility] 1.840.114 350.1.13.10 4.2.7.2.686 [id number] 107 [id number] [facility] 2023-04-14 00:00:00 2023-04-14 00:00:00 Orders Only Doctor Unassigned, Speed [facility] 1.840.114 350.1.13.10 4.2.7.2.686 [id number] [facility] 2023-04-13 08:30:00 2023-04-13 08:30:00 Outpatient R [facility] [id number] [facility] 2023-04-10 00:00:00 2023-04-10 00:00:00 [facility] 1.0.114 350.1.13.10 4.2.7.2.686 [id number] 107 [id number] [facility] 2023-04-10 00:00:00 2023-04-10 00:00:00 Patient Secure Msg Doctor Unassigned, Speed [facility] HOTHOUSE WORKER [facility] CH[facility] 1.0.114 350.1.13.10 4.2.7.2.686 [id number] 107 [id number] [facility] 2023-03-30 14:30:00 2023-03-30 15:36:58 Outpatient R ANGELITA WHEELER [facility] [id number] [facility] 2023-03-30 14:30:00 2023-03-30 15:36:58 Routine Visit Risk, Ang-Rmchp-N p/High Angelita Wheeler [facility] HOTHOUSE WORKER [facility] 1.2840.114 350.1.13.10 4.2.7.2.686 [id number] 107 [id number] [facility] 2023-03-30 13:15:00 2023-03-30 13:15:00 Outpatient R ALEJANDROCANDYANGELITA [facility] [id number] [facility] 2023-03-28 14:15:00 2023-03-28 14:15:00 Outpatient R LARA TABARES [facility] [id number] [facility] 2023-02-28 14:15:00 2023-02-28 15:12:30 Outpatient R ZULAY TODD [facility] [id number] [facility] 2023-02-28 14:15:00 2023-02-28 15:12:30 Initial Visit Zulay Todd [facility] HOTHOUSE WORKER [facility] 1..840.114 350.1.13.10 4.2.7.2.686 [id number] 107 [id number] [facility] 2023-02-28 00:00:00 2023-02-28 00:00:00 Orders Only Doctor Unassigned, Speed [facility] 1..840.114 350.1.13.10 4.2.7.2.686 [id number] [facility] 2022-10-11 13:30:00 2022-10-11 14:37:39 Outpatient R LARA TABARES [facility] [id number] [facility] 2022-10-11 13:30:00 2022-10-11 14:37:39 Office Visit Lara Tabares [facility] HOTHOUSE WORKER [facility] ..840.114 350.1.13.10 4.2.7.2.686 [id number] 107 [id number] [facility] 2022-08-25 09:45:00 2022-08-25 10:41:13 Outpatient R ZULAY TODD [facility] [id number] [facility] 2022-08-25 09:45:00 2022-08-25 10:41:13 Office Visit Provider, PierreRmchZulay Aviles [facility] HOTHOUSE WORKER [facility] 1.2.840.114 350.1.13.10 4.2.7.2.686 [id number] 107 [id number] [facility] 2022-07-20 13:15:00 2022-07-20 14:04:15 Outpatient R JOVAN REYNA EMILY [facility] [id number] [facility] 2022-07-20 13:15:00 2022-07-20 14:04:15 Office Visit Provider, Jovan Ladd [facility] HOTHOUSE WORKER [facility] ..840.114 350.1.13.10 4.2.7.2.686 [id number] 107 [id number] [facility] 2022-07-11 08:15:00 2022-07-11 08:15:00 Outpatient R LARA TABARES [facility] [id number] [facility] 2022-06-27 13:45:00 2022-06-27 13:45:00 Outpatient R LARA TABARES [facility] [id number] [facility] 2022-05-31 10:45:00 2022-05-31 10:45:00 Outpatient R LARA TABARES [facility] [id number] [facility] 2022-02-23 00:00:00 2022-02-23 00:00:00 Telephone Lara Tabares [facility] HOTHOUSE WORKER [facility] ..840.114 350.1.13.10 4.2.7.2.686 [id number] 107 [id number] [facility] 2022-02-22 14:45:00 2022-02-22 15:58:43 Outpatient R LARA TABARES [facility] [id number] [facility] 2022-02-22 14:45:00 2022-02-22 15:58:43 Office Visit Lara Tabares [facility] HOTHOUSE WORKER [facility] 1.0.114 350.1.13.10 4.2.7.2.686 [id number] 107 [id number] [facility] 2022-02-22 00:00:00 2022-02-22 00:00:00 Orders Only Doctor Unassigned, Speed [facility] 1.20.114 350.1.13.10 4.2.7.2.686 [id number] [facility] 2022-02-22 00:00:00 2022-02-22 00:00:00 Letter (Out) Lara Tabares [facility] HOTHOUSE WORKER [facility] CHILD [facility] 1..114 350.1.13.10 4.2.7.2.686 [id number] 107 [id number] [facility] 2021-12-28 15:00:00 2021-12-28 15:00:00 Outpatient R [facility] [id number] [facility] 2021-12-28 15:00:00 2021-12-28 15:00:00 Outpatient R LARA TABARES [facility] [id number] [facility] 2021-10-23 00:00:00 2021-10-23 00:00:00 Jovan Oseguera [facility] HOTHOUSE WORKER [facility] 1..114 350.1.13.10 4.2.7.2.686 [id number] 107 [id number] [facility] 2021-10-05 14:30:00 2021-10-05 14:49:24 Office Visit Jovan Cruz [facility] HOTHOUSE WORKER [facility] 1.840.114 350.1.13.10 4.2.7.2.686 [id number] 107 [id number] [facility] 2021-10-05 14:30:00 2021-10-05 14:49:24 Outpatient R JOVAN CRUZ [facility] [id number] [facility] 2021-10-05 14:30:00 2021-10-05 14:30:00 Outpatient R JOVAN CRUZ [facility] [id number] [facility] 2021-07-13 14:11:12 2021-07-13 15:00:50 Office Visit Lara Tabares [facility] HOTHOUSE WORKER [facility] ..840.114 350.1.13.10 4.2.7.2.686 [id number] 107 [id number] [facility] 2021-07-13 14:15:00 2021-07-13 14:15:00 Outpatient R LARA TABARES [facility] [id number] [facility] 2021-04-22 15:30:00 2021-04-22 15:30:00 Outpatient R [facility] [id number] [facility] 2021-04-20 16:09:50 2021-04-20 16:25:01 Nurse Visit Visit, Bal-Rmchp Nurse Lara Tabares [facility] ..840.114 350.1.13.10 4.2.7.2.686 [id number] 107 [id number] [facility] 2021-04-20 16:00:00 2021-04-20 16:00:00 Outpatient R [facility] [id number] [facility] 2021-02-23 14:03:58 2021-02-23 15:26:49 Office Visit Lara Tabares [facility] ..840.114 350.1.13.10 4.2.7.2.686 [id number] 107 [id number] [facility] 2021-02-23 14:15:00 2021-02-23 14:15:00 Outpatient R LARA TABARES [facility] [id number] [facility] 2021-02-23 00:00:00 2021-02-23 00:00:00 Telephone Lara Tabares [facility] HOTHOUSE WORKER [facility] 1.2.840.114 350.1.13.10 4.2.7.2.686 [id number] 107 [id number] [facility] 2021-01-27 15:33:41 2021-01-27 15:48:41 Nurse Visit Visit, MichelleLara Reveles [facility] HOTHOUSE WORKER [facility] 1.2.840.114 350.1.13.10 4.2.7.2.686 [id number] 107 [id number] [facility] 2021-01-27 15:30:00 2021-01-27 15:30:00 Outpatient R [facility] [id number] [facility] 2021-01-05 00:00:00 2021-01-05 00:00:00 Patient Outreach Benjamin Marcos [facility] 1.2.840.114 350.1.13.10 4.2.7.2.686 [id number] [facility] 2020-11-04 14:06:55 2020-11-04 14:39:49 Nurse Visit Visit, Lara Shultz [facility] 1.2.840.114 350.1.13.10 4.2.7.2.686 [id number] 107 [id number] [facility] 2020-11-04 14:00:00 2020-11-04 14:00:00 Outpatient R LARA TABARES [facility] [id number] [facility] 2020-10-21 15:00:00 2020-10-21 15:00:00 Outpatient R [facility] [id number] [facility] 2020-10-13 13:30:00 2020-10-13 13:30:00 Outpatient R [facility] [id number] [facility] 2020-10-07 14:55:00 2020-10-07 15:17:32 Nurse Visit Visit, Ang-Rmchp Nurse Lara Tabares [facility] HOTHOUSE WORKER [facility] 1..840.114 350.1.13.10 4.2.7.2.686 [id number] 107 [id number] [facility] 2020-10-07 15:00:00 2020-10-07 15:00:00 Outpatient LARA SHAH [facility] [id number] [facility] 2020-10-07 00:00:00 2020-10-07 00:00:00 Orders Only Doctor Unassigned, Speed [facility] 1..840.114 350.1.13.10 4.2.7.2.686 [id number] [facility] 2020-09-29 13:39:32 2020-09-29 14:03:49 Office Visit Lara Tabares [facility] HOTHOUSE WORKER [facility] 1..840.114 350.1.13.10 4.2.7.2.686 [id number] 107 [id number] [facility] 2020-09-29 13:30:00 2020-09-29 13:30:00 Outpatient R LARA TABARES [facility] [id number] [facility] 2020-09-22 15:15:00 2020-09-22 15:15:00 Outpatient R LARA TABARES [facility] [id number] [facility] 2020-09-16 14:45:00 2020-09-16 14:45:00 Outpatient R LARA TABARES [facility] [id number] [facility] 2020-09-15 10:30:00 2020-09-15 10:30:00 Outpatient R LARA TABARES [facility] [id number] [facility] 2020-08-26 15:17:52 2020-08-26 16:11:07 Office Visit Lara Tabares [facility] HOTHOUSE WORKER [facility] 1.2.840.114 350.1.13.10 4.2.7.2.686 [id number] 107 [id number] [facility] 2020-08-26 15:00:00 2020-08-26 15:00:00 Outpatient R LARA TABARES [facility] [id number] [facility] 2020-08-18 15:15:00 2020-08-18 15:15:00 Outpatient R ANJULARA DAWKINS [facility] [id number] [facility] 2020-05-18 15:19:27 2020-05-18 16:23:06 Office Visit Lara Tabares Rosh[facility] HOTHOUSE WORKER [facility] 1.2.840.114 350.1.13.10 4.2.7.2.686 [id number] 107 [id number] [facility] 2020-05-18 15:15:00 2020-05-18 15:15:00 Outpatient R JOVANA HUGO [facility] [id number] [facility] 2020-04-27 09:14:53 2020-04-27 09:45:07 Routine Visit Jovana Hugo [facility] HOTHOUSE WORKER [facility] 1.2.840.114 350.1.13.10 4.2.7.2.686 [id number] 107 [id number] [facility] 2020-04-27 09:30:00 2020-04-27 09:30:00 Outpatient R JOVANA HUGO [facility] [id number] [facility] 2020-04-04 20:05:00 2020-04-06 19:30:00 [facility] 1.2.84.114 350.1.13.10 4.2.7.2.686 [id number] [facility] 2020-04-06 00:00:00 2020-04-06 00:00:00 Abstract Lara Tabares [facility] HOTHOUSE WORKER [facility] 1..114 350.1.13.10 4.2.7.2.686 [id number] 107 [id number] [facility] 2020-04-01 15:28:59 2020-04-01 15:57:53 Routine Visit Jovana Hugo [facility] HOTHOUSE WORKER [facility] 1.84.114 350.1.13.10 4.2.7.2.686 [id number] 107 [id number] [facility] 2020-04-01 15:45:00 2020-04-01 15:45:00 Outpatient R JOVANA HUGO [facility] [id number] [facility] 2020-03-31 08:29:04 2020-03-31 08:53:06 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 Visit Ultrasound, Dank Mejia [facility] HOTHOUSE WORKER [facility] 1..114 350.1.13.10 4.2.7.2.686 [id number] [facility] 2020-03-31 08:30:00 2020-03-31 08:30:00 Outpatient P [facility] [id number] [facility] 2020-03-26 14:56:31 2020-03-26 15:35:28 Routine Visit Provider, Venus Turcios [facility] HOTHOUSE WORKER [facility] 1..114 350.1.13.10 4.2.7.2.686 [id number] 107 [id number] [facility] 2020-03-26 15:00:00 2020-03-26 15:00:00 Outpatient R [facility] [id number] [facility] 2020-03-20 00:00:00 2020-03-20 00:00:00 Telephone Lara Tabares [facility] HOTHOUSE WORKER [facility] 1.2.840.114 350.1.13.10 4.2.7.2.686 [id number] 107 [id number] [facility] 2020-03-18 12:45:09 2020-03-18 13:20:10 Routine Visit Provider, Venus Turcios [facility] HOTHOUSE WORKER [facility] 1.2.840.114 350.1.13.10 4.2.7.2.686 [id number] 107 [id number] [facility] 2020-03-18 12:45:00 2020-03-18 12:45:00 Outpatient R [facility] [id number] [facility] 2020-03-13 00:00:00 2020-03-13 00:00:00 Telephone Lara Tabares [facility] HOTHOUSE WORKER [facility] 1.2.840.114 350.1.13.10 4.2.7.2.686 [id number] 107 [id number] [facility] 2020-03-12 00:00:00 2020-03-12 00:00:00 Telephone Lara Tabares [facility] HOTHOUSE WORKER [facility] 1.2.840.114 350.1.13.10 4.2.7.2.686 [id number] 107 [id number] [facility] 2020-03-11 10:14:34 2020-03-11 10:29:34 Routine Visit Lara Tabares [facility] HOTHOUSE WORKER [facility] 1.2.840.114 350.1.13.10 4.2.7.2.686 [id number] 107 [id number] [facility] 2020-03-11 10:15:00 2020-03-11 10:15:00 [facility] [id number] [facility] 2020-02-26 11:44:51 2020-02-26 13:42:56 Telemedici ne Visit Lara Tabares HOTHOUSE WORKER [facility] 1.2.840.114 350.1.13.10 4.2.7.2.686 [id number] 107 [id number] [facility] 2020-02-26 12:45:00 2020-02-26 12:45:00 Outpatient R LARA TABARES [facility] [id number] [facility] 2020-02-20 10:22:58 2020-02-20 10:33:44 Nurse Visit Visit, Ang-Rmchp Nurse Lara Tabares [facility] HOTHOUSE WORKER [facility] 1.2840.114 350.1.13.10 4.2.7.2.686 [id number] 107 [id number] [facility] 2020-02-20 10:00:00 2020-02-20 10:00:00 Outpatient R LARA TABARES [facility] [id number] [facility] 2020-02-20 00:00:00 2020-02-20 00:00:00 Orders Only Doctor Unassigned, Speed [facility] 1.840.114 350.1.13.10 4.2.7.2.686 [id number] [facility] 2020-02-19 00:00:00 2020-02-19 00:00:00 Telephone Lara Tabares [facility] HOTHOUSE WORKER [facility] 1.20.114 350.1.13.10 4.2.7.2.686 [id number] 107 [id number] [facility] 2020-02-10 10:45:00 2020-02-10 10:45:00 Outpatient R LARA TABARES [facility] [id number] [facility] 2020-02-10 10:30:00 2020-02-10 10:30:00 Outpatient R ANJUMIRIANGUEROJUANALARA [facility] [id number] [facility] 2020-01-31 14:06:08 2020-01-31 14:54:35 Routine Visit Lara Tabares KSAYESHA HOTHOUSE WORKER [facility] 1.2.840.114 350.1.13.10 4.2.7.2.686 [id number] 107 [id number] [facility] 2020-01-31 14:00:00 2020-01-31 14:00:00 Outpatient R LARA TABARES [facility] [id number] [facility] 2020-01-28 15:00:00 2020-01-28 15:00:00 Outpatient R LARA TABARES [facility] [id number] [facility] 2020-01-15 00:00:00 2020-01-15 00:00:00 Telephone Monica Tabaresola Lou [facility] HOTHOUSE WORKER [facility] 1.2.840.114 350.1.13.10 4.2.7.2.686 [id number] 107 [id number] [facility] 2020-01-15 00:00:00 2020-01-15 00:00:00 Telephone Lara Tabares KSAYESHA HOTHOUSE WORKER [facility] 1.2.840.114 350.1.13.10 4.2.7.2.686 [id number] 107 [id number] [facility] 2020-01-14 14:05:01 2020-01-14 15:15:00 Routine Visit Lara Tabares [facility] HOTHOUSE WORKER [facility] 1.2.840.114 350.1.13.10 4.2.7.2.686 [id number] 107 [id number] [facility] 2020-01-14 14:00:00 2020-01-14 14:00:00 Outpatient R AKINSIPE, LARA [facility] [id number] [facility] 2019-12-31 00:00:00 2019-12-31 00:00:00 Abstract Lara Tabares [facility] HOTHOUSE WORKER [facility] 1.2.840.114 350.1.13.10 4.2.7.2.686 [id number] 107 [id number] [facility] 2019-12-30 12:45:00 2019-12-30 12:45:00 Outpatient R LARA TABARES [facility] [id number] [facility] 2019-12-17 09:50:07 2019-12-17 10:51:34 Routine Visit Lara Tabares [facility] HOTHOUSE WORKER [facility] 1.2.840.114 350.1.13.10 4.2.7.2.686 [id number] 107 [id number] [facility] 2019-12-17 09:30:00 2019-12-17 09:30:00 Outpatient R LARA TABARES [facility] [id number] [facility] 2019-12-06 00:00:00 2019-12-06 00:00:00 Abstract Lara Tabares [facility] HOTHOUSE WORKER [facility] 1.2.840.114 350.1.13.10 4.2.7.2.686 [id number] 107 [id number] [facility] 2019-12-05 12:57:02 2019-12-05 13:27:02 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 Visit Ultrasound, Dank Mejia [facility] HOTHOUSE WORKER [facility] 1.2840.114 350.1.13.10 4.2.7.2.686 [id number] [facility] 2019-11-29 13:30:34 2019-11-29 14:00:19 Routine Visit AnjuaLra dawkins [facility] HOTHOUSE WORKER [facility] 1.2.840.114 350.1.13.10 4.2.7.2.686 [id number] 107 [id number] [facility] 2019-11-01 12:46:05 2019-11-13 14:07:26 Routine Visit Lara Tabares [facility] [employer]OT[employer]SE WORKER [facility] & CHILD [facility] 1.2.840.114 350.1.13.10 4.2.7.2.686 [id number] [facility] 2019-11-13 13:52:18 2019-11-13 14:07:18 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 CHILD [facility] 1.2.840.114 350.1.13.10 4.2.7.2.686 [id number] [facility] 2019-11-12 00:00:00 2019-11-12 00:00:00 Abstract Lara Tabares [facility] H[employer] WORKER [facility]ILD [facility] 1.2.840.114 350.1.13.10 4.2.7.2.686 [id number] [facility] 2019-11-12 00:00:00 2019-11-12 00:00:00 Telephone Lara Tabares [facility] H[employer]HOU[employer] WORKER [facility]ILD [facility] 1.2.840.114 350.1.13.10 4.2.7.2.686 [id number] [facility] Results Test Description Test Time Test Comments Results Result [id number] 16:43:09* Test Item Value Reference Range Interpretation Comme nts Syphilis IgG/IgM (test code = 10063-0) Non-reactive Non-reactive MINE (test code = MINE) Non-reactive - No serologic evidence of T. pallidum infection. Cannot exclude incubating or early syphilis. Submit a second specimen in 2-4 weeks if syphilis is clinically suspected. Equivocal - Further testing to follow. Reactive - Further testing to follow. Lab Interpretation (test code = 68011-0) Normal [facility] (D) IMMUNE [id number] 11:37:48* Test Item Value Reference Range Interpretation Comme nts RHIG CANDIDATE? (test code = 5188) No- see comment Patient is not a candidate for RhIg- Patient is Rh Positive.Performed at [facility] Laboratory Services [facility] Blood [address] Free: [phone] No. [id number] [facility] () IMMUNE [id number] 11:37:48* Test Item Value Reference Range Interpretation Comme nts RHIG CANDIDATE? (test code = 5188) No- see comment Patient is not a candidate for RhIg- Patient is Rh Positive.Performed at [facility] Laboratory Services [facility] Blood [address] Free: [phone] No. [id number] [facility] [id number] 08:09:06* Test Item Value Reference Range Interpretation Comme nts BASE EXCESS, CORD (test code = 4694269403) -2.3 mEq/L QUES AC PH, CORD (BEAKER) (test code = 0567080384) 7.32 7.18-7.38 PC02, CORD (test code = 8532196557) 48 See_Comment [Automated messa ge] The system which generated this result transmitted reference range: 32 - 66 mmHg. The reference range was not used to interpret this result as normal/abnormal. PO2, CORD (test code = 8092641911) 16 See_Comment [Automated messa ge] The system which generated this result transmitted reference range: 10 - 30 mmHg. The reference range was not used to interpret this result as normal/abnormal. BICARBONATE, CORD (test code = 6017324422) 24 See_Comment [Automated messa ge] The system which generated this result transmitted reference range: 17 - 27 mEq/L. The reference range was not used to interpret this result as normal/abnormal. [facility] Cord Rkc9137-29-27 08:09:06* Test Item Value Reference Range Interpretation Comme nts BASE EXCESS, CORD (test code = 7240733748) -2.3 mEq/L QUES AC PH, CORD (BEAKER) (test code = 9963665342) 7.32 7.18-7.38 PC02, CORD (test code = 0242500648) 48 See_Comment [Automated messa ge] The system which generated this result transmitted reference range: 32 - 66 mmHg. The reference range was not used to interpret this result as normal/abnormal. PO2, CORD (test code = 4964378207) 16 See_Comment [Automated messa ge] The system which generated this result transmitted reference range: 10 - 30 mmHg. The reference range was not used to interpret this result as normal/abnormal. BICARBONATE, CORD (test code = 6026277294) 24 See_Comment [Automated messa ge] The system which generated this result transmitted reference range: 17 - 27 mEq/L. The reference range was not used to interpret this result as normal/abnormal. [facility] Cord Xoo0354-84-25 08:08:35* Test Item Value Reference Range Interpretation Comme nts VENOUS BASE EXCESS, CORD (test code = 1313267103) 0.3 mEq/L VENOUS PH, CORD (test code = 1721967601) 7.43 7.25-7.45 VENOUS PC02, CORD (test code = 7688871473) 38 See_Comment [Automated messa ge] The system which generated this result transmitted reference range: 27 - 49 mmHg. The reference range was not used to interpret this result as normal/abnormal. VENOUS PO2, CORD (test code = 9691609049) 32 See_Comment [Automated me ssage] The system which generated this result transmitted reference range: 17 - 41 mmHg. The reference range was not used to interpret this result as normal/abnormal. VENOUS BICARBONATE, CORD (test code = 2158776158) 24 See_Comment QUES [Automated message] The system which generated this result transmitted reference range: 12 - 29 mEq/L. The reference range was not used to interpret this result as normal/abnormal. [facility] Dus[facility]10[facility] 08:08:35* Test Item Value Reference Range Interpretation Comme nts VENOUS BASE EXCESS, CORD (test code = 9062328389) 0.3 mEq/L VENOUS PH, CORD (test code = 8401633605) 7.43 7.25-7.45 VENOUS PC02, CORD (test code = 5646003615) 38 See_Comment [Automated messa ge] The system which generated this result transmitted reference range: 27 - 49 mmHg. The reference range was not used to interpret this result as normal/abnormal. VENOUS PO2, CORD (test code = 2210224078) 32 See_Comment [Automated me ssage] The system which generated this result transmitted reference range: 17 - 41 mmHg. The reference range was not used to interpret this result as normal/abnormal. VENOUS BICARBONATE, CORD (test code = 7566799604) 24 See_Comment QUES [Automated message] The system which generated this result transmitted reference range: 12 - 29 mEq/L. The reference range was not used to interpret this result as normal/abnormal. [facility] Djstc6355-48-58 02:01:00Bam Severino, DO ? ? 10/22/2023 ?8:02 PM Central Neuraxial Block Date/Time: 10/22/2023 8:01 PM Performed by: Bam Severino, DOAuthorized by: Hortencia Turpin MD ?Patient Location: OBReason for Block: OB request, Patient request and Labor analgesiaStaff: ?Anesthesiologist: Hortencia Turpin MD ?Resident/BENCH WORKER: Zacarias Christie MD ?Performed by: resident/CRNAPreanesthetic Checklist: [...] and MICHELLE saline ?Guidance with: landmark technique}Epidural/Spinal [place]az[place]uddie and/or Catheter: ?Epidural/Spinal Kit: GIOVANIraun ?Needle Type: [...] procedure well with no complicationsNotes: ? [facility] WITH BEEWFG7943-05-47 21:51:35* Test Item Value Reference Range Interpretation [facility] Semi-quantitative (test code = 58090-5) 0.07 Negative MINE (test code = MINE) Non-reactive for HIV-1 antigen and HIV-1/HIV-2 antibodies. ?No laboratory evidence of HIV infection. ?Repeat in 2-4 weeks if acute HIV infection is suspected. [facility] 1/2 AG-AB WITH SIALOE6817-27-90 21:51:35* Test Item Value Reference Range Interpretation Comme [facility] Semi-quantitative (test code = 60666-0) 0.07 Negative MINE (test code = MINE) Non-reactive for HIV-1 antigen and HIV-1/HIV-2 antibodies. ?No laboratory evidence of HIV infection. ?Repeat in 2-4 weeks if acute HIV infection is suspected. [facility] Ftugpay6725-87-97 21:41:51 * Test Item Value Reference Range Interpretation Comme [facility] HBsAg Semi-Quantitative (vivien t code = 5195-3) 0.10 Negative [facility] B Surface Trcxdxv8101-16-91 21:41:51 * Test Item Value Reference Range Interpretation Com[facility] HBsAg Semi-Quantitative (vivien t code = 5195-3) 0.10 Negative [facility] with Mgjvzczsgdjo0982-20-57 20:13:56* Test Item Value Reference Range Interpretation Comme nts WBC (test code = 6690-2) 8.89 See_Comment [Automated Huy [place] ge] The system which generated this result transmitted reference range: 4.30 - 11.10 10*3/?L. The reference range was not used to interpret this result as normal/abnormal. RBC (test code = 789-8) 4.63 See_Comment [Automated Huy [place] ge] The system which generated this result [...] g/dL 31.6-35.1 L RDW-SD (test code = 68734-3) 65.0 fL 39.0-49.9 H RDW-CV (test code = 788-0) 28.1 % 12.0-15.5 H PLT (test code = 777-3) 321 See_Comment [Automated Huy Vietnama ge] The system which generated this result transmitted reference range: 166 - 358 10*3/?L. The reference range was not used to interpret this result as normal/abnormal. MPV (test code = 02471-5) 11.3 fL 9.5-12.9 IPF % (test code = 1728947314) 7.3 % 1.3-7.7 Platelet count measured by fluorescence method. NRBC/100 WBC (test code = 2472973812) 0.2 See_Comment [Automated Calpian ssage] The system which generated this result transmitted reference range: 0.0 - 10.0 /100 WBCs. The reference range was not used to interpret this result as normal/abnormal. NRBC x10^3 (test code = 3934260997) 0.02 See_Comment [Automated Huy [place] ge] The system which generated this result transmitted reference range: 10*3/?L. The reference range was not used to interpret this result as normal/abnormal. GRAN MAT (NEUT) % (test code = 770-8) 67.5 % IMM GRAN % (test code = 2115007068) 1.20 % LYMPH % (test code = 736-9) 22.8 % MONO % (test code = 5905-5) 5.1 % EOS % (test code = 713-8) 2.6 % BASO % (test code = 706-2) 0.8 % GRAN MAT x10^3(ANC) (test code = 4961007142) 6.00 10*3/uL 1.88-7.09 IMM GRAN x10^3 (test code = 3367303590) 0.11 10*3/uL 0.00-0.06 H LYMPH x10^3 (test code = 731-0) 2.03 10*3/uL 1.32-3.29 MONO x10^3 (test code = 742-7) 0.45 10*3/uL 0.33-0.92 EOS x10^3 (test code = 711-2) 0.23 10*3/uL 0.03-0.39 BASO x10^3 (test code = 704-7) 0.07 10*3/uL 0.01-0.07 Lab Interpretation (test code = 46024-1) Abnormal [facility] with Xlsisuzbmwvi0045-22-84 20:13:56* Test Item Value Reference Range Interpretation [...] g/dL 31.6-35.1 L RDW-SD (test code = 12432-6) 65.0 fL 39.0-49.9 H RDW-CV (test code = 788-0) 28.1 % 12.0-15.5 H PLT (test code = 777-3) 321 See_Comment [Automated Huy Vietnama ge] The system which generated this result transmitted reference range: 166 - 358 10*3/?L. The reference range was not used to interpret this result as normal/abnormal. MPV (test code = 76462-2) 11.3 fL 9.5-12.9 IPF % (test code = 6352575571) 7.3 % 1.3-7.7 Platelet count measured by fluorescence method. NRBC/100 WBC (test code = 5107307047) 0.2 See_Comment [Automated Calpian ssage] The system which generated this result transmitted reference range: 0.0 - 10.0 /100 WBCs. The reference range was not used to interpret this result as normal/abnormal. NRBC x10^3 (test code = 5607705154) 0.02 See_Comment [Automated Huy Vietnama ge] The system which generated this result transmitted reference range: 10*3/?L. The reference range was not used to interpret this result as normal/abnormal. GRAN MAT (NEUT) % (test code = 770-8) 67.5 % IMM GRAN % (test code = 0356150659) 1.20 % LYMPH % (test code = 736-9) 22.8 % MONO % (test code = 5905-5) 5.1 % EOS % (test code = 713-8) 2.6 % BASO % (test code = 706-2) 0.8 % GRAN MAT x10^3(ANC) (test code = 1871335378) 6.00 10*3/uL 1.88-7.09 IMM GRAN x10^3 (test code = 9746164453) 0.11 10*3/uL 0.00-0.06 H LYMPH x10^3 (test code = 731-0) 2.03 10*3/uL 1.32-3.29 MONO x10^3 (test code = 742-7) 0.45 10*3/uL 0.33-0.92 EOS x10^3 (test code = 711-2) 0.23 10*3/uL 0.03-0.39 BASO x10^3 (test code = 704-7) 0.07 10*3/uL 0.01-0.07 Lab Interpretation (test code = 98838-6) [facility]normal [facility] ZZQA1101-87-94 19:58:00 * Test Item Value Reference Range Interpretation Comme nts ABO & RH (test code = 20) O POSITIVE IAT (test code = 1185) Negative [facility] and Screen - ONCE UXZV1427-27-27 19:58:00 * Test Item Value Reference Range Interpretation Comme nts ABO & RH (test code = 20) O POSITIVE IAT (test code = 1185) Negative [facility] URINALYSIS W SPECIFIC SKBCKOP7569-56-15 21:35:00* Test Item Value Reference Range Interpretation [...] U APPEAR (test code = 3267) . [facility] URINALYSIS W SPECIFIC MDXGKVE5741-04-47 17:37:00* Test Item Value Reference Range Interpretation [...] POCT U APPEAR (test code = 3267) [facility] URINALYSIS W SPECIFIC GTMFKTK3598-76-00 17:19:00* Test Item Value Reference Range Interpretation [...] U APPEAR (test code = 3267) * [facility] URINALYSIS W SPECIFIC MTISMRD1495-59-86 14:58:00* Test Item Value Reference Range Interpretation [...] U APPEAR (test code = 3267) . [facility] MPBXII2062-76-86 08:47:47* Test Item Value Reference Range Interpretation Comme nts HIV Semi-quantitative (test code = 39291-8) 0.11 Negative MINE (test code = MINE) Non-reactive for HIV-1 antigen and HIV-1/HIV-2 antibodies. ?No laboratory evidence of HIV infection. ?Repeat in 2-4 weeks if acute HIV infection is suspected. [facility]IFIC BLPXTIF6315-96-04 22:37:00* Test Item Value Reference Range Interpretation [...] U APPEAR (test code = 3267) . [facility] URINALYSIS W SPECIFIC RGYUYSA9951-16-20 22:37:00* Test Item Value Reference Range Interpretation [...] U APPEAR (test code = 3267) . [facility] URINALYSIS W SPECIFIC OZFZDFG3131-73-50 22:37:00* Test Item Value Reference Range Interpretation [...] U APPEAR (test code = 3267) . [facility] URINALYSIS W SPECIFIC SVRGEKJ7114-47-81 21:18:00* Test Item Value Reference Range Interpretation [...] POCT U APPEAR (test code = 3267) [facility] URINALYSIS W SPECIFIC VBJHGND8269-22-57 16:00:00* Test Item Value Reference Range Interpretation [...] POCT U APPEAR (test code = 3267) [facility] URINALYSIS W SPECIFIC CCZWZQV1863-26-08 13:31:00* Test Item Value Reference Range Interpretation [...] POCT U APPEAR (test code = 3267) [facility] URINALYSIS W SPECIFIC ZHZTBJV0971-16-49 13:18:00* Test Item Value Reference Range Interpretation [...] POCT U APPEAR (test code = 3267) [facility] URINALYSIS W SPECIFIC TBZVJQW8888-29-03 16:11:00* Test Item Value Reference Range Interpretation [...] POCT U APPEAR (test code = 3267) [facility] MOLECULAR BWJON9312-03-52 21:11:16* Test Item Value Reference Range Interpretation Comme nts POCT Molecular Strep (test c ode = 28315-4) Negative Negative Lab Interpretation (test cod e = 58984-6) Normal [facility] MOLECULAR CIS8204-91-01 18:40:03* Test Item Value Reference Range Interpretation Comme nts POCT Molecular FluA (test co de = 30048-6) Negative Negative POCT Molecular FluB (test co de = 14225-4) Negative Negative Lab Interpretation (test cod e = 22176-9) Normal [facility] URINALYSIS W SPECIFIC WIEDPUL7473-83-39 18:32:00* Test Item Value Reference Range Interpretation [...] U APPEAR (test code = 3267) clear [facility] URINALYSIS W SPECIFIC BWYKJHI3185-48-49 18:24:00* Test Item Value Reference Range Interpretation [...] U APPEAR (test code = 3267) . [facility] URINALYSIS W SPECIFIC GLGJTEJ6870-36-66 13:44:00* Test Item Value Reference Range Interpretation [...] POCT U APPEAR (test code = 3267) [facility] URINALYSIS W SPECIFIC BRTFUWT7464-54-74 20:11:00* Test Item Value Reference Range Interpretation [...] U APPEAR (test code = 3267) . [facility] URINALYSIS W SPECIFIC SSRMDCR0833-03-21 20:09:00* Test Item Value Reference Range Interpretation [...] POCT U APPEAR (test code = 3267) [facility] NTEN7539-03-38 19:23:00* Test Item Value Reference Range Interpretation Comme nts POCT PREG (test code = 1605) Positive On board controls acceptable with C Line (test code = 3574) Yes POCT PREG LOT # (test code = 3575) POCT PREG TEST DATE ( test code = 3576) [facility] URINALYSIS W/O SPECIFIC [id number] 19:23:00* Test Item Value Reference Range Interpretation [...] = 3257) Trace Negative - Negati ve [facility] IAAH6323-36-40 20:02:00* Test Item Value Reference Range Interpretation Comme nts POCT PREG (test code = 1605) Negative On board controls acceptable with C Line (test code = 3574) Yes POCT PREG LOT # (test code = 3575) POCT PREG TEST DATE ( test code = 3576) [facility] NGZS8057-53-77 20:02:00* Test Item Value Reference Range Interpretation Comme nts POCT PREG (test code = 1605) Negative On board controls acceptable with C Line (test code = 3574) Yes POCT PREG LOT # (test code = 3575) POCT PREG TEST DATE ( test code = 3576) [facility] PMFW9647-29-34 18:42:00* Test Item Value Reference Range Interpretation Comme nts POCT PREG (test code = 1605) Negative On board controls acceptable with C Line (test code = 3574) Yes POCT PREG LOT # (test code = 3575) POCT PREG TEST DATE ( test code = 3576) [facility] TBEQ1160-27-80 18:42:00* Test Item Value Reference Range Interpretation Comme nts POCT PREG (test code = 1605) Negative On board controls acceptable with C Line (test code = 3574) Yes POCT PREG LOT # (test code = 3575) POCT PREG TEST DATE ( test code = 3576) [facility] SYPHILIS IGG/XIG1809-63-48 14:53:09* Test Item Value Reference Range Interpretation Comme nts Syphilis IgG/IgM (test code = 71259-4) Non-reactive Non-reactive MINE (test code = MINE) Non-reactive - No serologic evidence of T. pallidum infection. Cannot exclude incubating or early syphilis. Submit a second specimen in 2-4 weeks if syphilis is clinically suspected. Equivocal - Further testing to follow. Reactive - Further testing to follow. Lab Interpretation (test code = 97153-1) Normal [facility] WITH YMMDWX9615-26-65 05:57:16* Test Item Value Reference Range Interpretation Comme nts HIV Semi-quantitative (test code = 17605-9) Negative Negative MINE (test code = MINE) Non-reactive for HIV-1 antigen and HIV-1/HIV-2 antibodies. ?No laboratory evidence of HIV infection. ?Repeat in 2-4 weeks if acute HIV infection is suspected. [facility] W/O SPECIFIC TLHKTZA3615-09-30 20:10:00* Test Item Value Reference Range Interpretation [...] = 3257) large Negative - Negati ve [facility] History and Physical Notes Date/Time Note Provider Source 2023-10-22 12:38:58 QFnbgt38k7+HPNSlEfWc xFnOn2H92cTHvbjmgvuOTa /Jcl8GsebvQ4QE47pfsbfR2701-51-45Q17:38:58F ormatting of this note is different from the original.TRIAGE/L&D HISTORY & PHYSICALIDENTIFYING DATAAngel Leonardo is 28 year old, /White, 39w0d, female with PAUL 10/29/2023, by Last Menstrual Period.: 1995MRN: [id number] Care Physician: PATIENT DOES NOT HAVE A [...] Date/TimeCGB Negative 10/03/2023 11:38 AMGTTLab ResultsComponent Value Date/FaluFQJB4MR 104 (L) 07/27/2023 10:50 AMCBCLab ResultsComponent Value Date/TimeHGB 7.8 (L) 10/03/2023 11:31 AMHCT 28.4 (L) 10/03/2023 11:31 AMPLT 325 10/03/2023 11:31 AMActive Hospital ProblemsDiagnosis Date Noted39 weeks gestation of 10/22/2023Tubal ligation status 3Anemia of mother in , antepartum 01/15/2020Rubella non-immune status, antepartum 10/07/2019Address ppHistory of systemic lupus erythematosus (SLE) 10/04/2019Reports dx in 2016, but did not follow upResolved Hospital ProblemsDiagnosis Date Noted Date Vnbwfzqc04 weeks gestation of 04/04/2020 4Present on Admission:History of systemic lupus erythematosus (SLE)Rubella non-immune status, antepartumAnemia of mother in , antepartumTubal ligation status(Resolved) 39 weeks gestation of allinhtkx65 weeks gestation of pregnancyPlacenta Accreta ScreeningPrior ? [...] on 10/03/23- PP control plan: desires BTL- [place] RMCHPFetus- Presentation on admission: cephalic- anterior placenta- EFW: 3134 g, 25%tile- FHT reactive and reassuring- Normal anatomy scan- NT negative, NIPT low risk, MSAFP wnlD/w Dr. Promise Castanon MD ssociated attestation - Jamaica Batista MD - 10/22/2023 3:29 PM CST I was the faculty on L&D on 10/22/[address] and I [address] with Dr. Castanon' assessment and plan.Jamaica Batista MD34117-2History and physical [id number], Faranak1.2.840.503228.1.13.104.2.7.2.76273 2HcymkgMnjedmxEB5024-82-94Z14:29:09History and physical noteTXT1.2.840.327343.1.13.104.2.7.2.85902 9|[id number] for patient bwfw33256-9Luvdwgs and physical noteLNNARRATIVEFormatted C-CDA narrative textUT[address] RmcsZtfvtjkdvVkieecozhZYNZ3640481763JRVLDQ UPNDNZAPCQCEOPOG0591-30-08K98:29:091.2.840 .085639.1.72.3.15|1.2.840.890492.1.13.104. 2.7.2.727879_[id number] [facility] Procedure Notes Date/Time Note Provider Source 2023-10-22 20:01:40 92KFp/GpNRxlCirYI9q9 5AaxxhUAfMDdjv 1pjZtySMNqe0rl4jG87N+FjOqiWpu34135 -01-07T20:01:40Associated Order(s): Central Neuraxial Block Central Neuraxial BlockDate/Time: 10/22/2023 8:01 PMPerformed by: Bam Severino, DOAuthorized by: Hortencia Turpin MDPatient Location: OBReason for Block: OB request, Patient request and Labor analgesiaStaff:Anesthesiologist: Hortencia Turpin, MDResident/BENCH WORKER: Shahnaz, Keyin, MDPerformed by: resident/CRNAPreanesthetic Checklist: patient identified, IV checked, risks and benefits explained, monitors and equipment checked, timeout performed, pre-op evaluation, site marked and anesthesia consentProcedure:Type of Neuraxial: EpiduralEpidural Description: 1st attemptSterility Prep cap, drape, gloves, mask and hand hygieneSedation Level no sedationPatient Position: sittingPrep: Betadine and patient drapedMonitoring: heart rate, continuous pulse ox, heart rate / toco and NIBPLocation: lumbar (1-5)Lumbar: L4-A4Ypoggynz: midlineTechnique: catheter and MICHELEL salineGuidance with: landmark technique}Epidural/Spinal [place]udd[place] and/or Catheter:Epidural/Spinal Kit: BBraunNeedle Type: TuohyNeedle Gauge: 17 GNeedle Length: 3.5 in (8.89 cm)Needle Insertion Depth: 5Catheter Type: multiportCatheter Size: 19 GCatheter at Skin Depth: 10Number of Attempts: 1Test Dose: lidocaine 1.5% with epinephrine 1-to-200,000 and negativeDose: 5 ccCatheter Securement Method: surgical tape, Tegaderm and liquid medical adhesiveAssessment:Procedure Assessment: patient tolerated procedure well with no complicationsNotes:Perpendicular entry 19772-7Touaksipuqcbfu procedure bseoUA4918-75-33L87:02:05Anesthesi ology procedure noteTXT1.2.840.057883.1.13.104.2.7 .2.486696|[id number] for patient anzw39886-2Ovmdxliz operation noteLNNARRATIVEFormatted C-CDA narrative vtddLD-ZGARUYSHNYACXQOE-ONLYQTHILQ [address][id number] 47ABDPYRQQFTRIELLOZUZPHV7368-43-17 T20:02:051.2.840.951565.1.72.3.15| 1.2.840.722431.1.13.104.2.7.2.7278 [id number] AN-ANESTHESIOLOGY [facility] Notes Date/Time Note Provider Source 2023-10-25 10:14:50 MHXsjDIr+eG5gcbC/Vd9YNia3JV3U9WoQmypqL EXVCezJOSe303SAxkwFZYjiLoj4178-79-79V9 0:14:50 Discharge instructions given to patient verbally [...] Patient will be going home with family. 33551-8Lujxd WqjwPM5366-32-73K42:15:04Nurse NoteTXT1.2.840.891709.1.13.104.2.7.2.7 93882|[id number] for patient kzba71018-2KgnuUQREQTHLBRFBvjdonmrh C-CDA narrative [id number] M Gossett RN[address] HqtxTufa[id number] GAXPMQVKOJZPYPRYIMZE1204-87-08N68:15:0 41.2.840.659100.1.72.3.15|1.2.840.1143 50.1.13.104.2.7.2.727879_[id number] Irene Dykes RN [facility] 2023-10-25 08:02:49 ZQgqqklhZX3HmYNN0KSbKjOG/Hj+JPzwKXqva5 UXOFP8CXsTnKi6iQf2IqdkD29M0306-09-77Q1 8:02:49 Problem: Falls, Risk ofGoal: Absence of fallsOutcome: Progressing as expectedProblem: Discharge Planning - PostpartumGoal: Adequate for dischargeOutcome: Progressing as expectedGoal: Mood stableOutcome: Progressing as expectedProblem: Infection RiskGoal: Absence of infectionOutcome: Progressing as expectedProblem: Discharge Planning - PostpartumGoal: Adequate for dischargeOutcome: Progressing as expectedGoal: Mood stableOutcome: Progressing as expectedProblem: Breast-feeding - IneffectiveGoal: Effective breast-feedingOutcome: Progressing as expected 32573-2Jcen of care bekpBH5431-84-60V38:02:52Plan of care noteTXT1.2.840.676109.1.13.104.2.7.2.7 39307|[id number] for patient lbhn61666-2OadrXGMWTQLXBPYQgkgpwrgj C-CDA narrative [address][id number] IPRDEIAVELOUJHAVJGOR2020-55-13O30:02:5 21.2.840.759044.1.72.3.15|1.2.840.1143 50.1.13.104.2.7.2.727879_[id number] [facility] 2023-10-25 05:15:36 gGjLwgNx6J/Fqw0EeUscZWE193+pyksvvuleE0 sOOXc+l9AZg2WsfGH+ihDWBVMM0508-29-17Z3 5:15:36 Problem: Falls, Risk ofGoal: Absence of fallsOutcome: Progressing as expectedProblem: Discharge Planning - PostpartumGoal: Adequate for dischargeOutcome: Progressing as expectedGoal: Mood stableOutcome: Progressing as expectedProblem: Infection RiskGoal: Absence of infectionOutcome: Progressing as expectedProblem: Discharge Planning - PostpartumGoal: Adequate for dischargeOutcome: Progressing as expectedGoal: Mood stableOutcome: Progressing as expectedProblem: Breast-feeding - IneffectiveGoal: Effective breast-feedingOutcome: Progressing as expected 36852-1Pjng of care sqcbVE0361-40-14B92:15:39Plan of care noteTXT1.2.840.385071.1.13.104.2.7.2.7 79500|6291645380PBIwwinbaun for patient vhhp10894-7EsppYYFHFZLPWHTLhijljcno C-CDA narrative [id number] Orellana RN[id number] OPXEITQGVKXZWWTJAREH0944-04-69X40:15:3 91.2.840.246189.1.72.3.15|1.2.840.1143 50.1.13.104.2.7.2.727879_[id number] Nupur Baig RN [facility] 2023-10-24 15:46:13 X+85BYqtBr1uwOtRpIwF+kLdjlN1Q7JglHWfhc ojtjtjUYaeqh/GeMPcmk5wIgxT0688-75-41K4 5:46:13 Problem: Discharge Planning - PostpartumGoal: Adequate for dischargeOutcome: Progressing as expectedGoal: Mood stableOutcome: Progressing as expectedProblem: Discharge Planning - PostpartumGoal: Adequate for dischargeOutcome: Progressing as expectedGoal: Mood stableOutcome: Progressing as expected 10679-5Dqyf of care innpLK3520-05-16I91:46:17Plan of care noteTXT1.2.840.572011.1.13.104.2.7.2.7 17186|5208572788ZWOibkyxiax for patient slco00156-1DukvJWVUNLOGTSMGtjynqody C-CDA narrative [id number] Kidd RNUT[address] [id number] BSTISXJMSOTBVKUBVZPE4067-56-28K09:46:1 71.2.840.272554.1.72.3.15|1.2.840.1143 50.1.13.104.2.7.2.727879_[id number] Kyle Christopher [facility] 2023-10-24 06:15:21 /gY03ioPlKCO4AcABB39AaxaUzod5e3f394lxQ XUelEjveemmARazTXh/N8jxbXJ0009-77-82U0 6:15:21 Problem: Falls, Risk ofGoal: Absence of fallsOutcome: Progressing as expectedProblem: Discharge Planning - PostpartumGoal: Adequate for dischargeOutcome: Progressing as expectedGoal: Mood stableOutcome: Progressing as expectedProblem: Infection RiskGoal: Absence of infectionOutcome: Progressing as expectedProblem: Discharge Planning - PostpartumGoal: Adequate for dischargeOutcome: Progressing as expectedGoal: Mood stableOutcome: Progressing as expectedProblem: Breast-feeding - IneffectiveGoal: Effective breast-feedingOutcome: Progressing as expected 11422-9Hdcg of care viqaCA4419-08-13S25:15:26Plan of care noteTXT1.2.840.436166.1.13.104.2.7.2.7 65641|[id number] for patient apkv79328-1SsfmVMBLAXMUKHOBlrqczilk C-CDA narrative text[id number] GWUNJDLLTSQTDBVIUCKT1166-71-93N85:15:2 61.2.840.399598.1.72.3.15|1.2.840.1143 50.1.13.104.2.7.2.727879_[id number] [facility] 2023-10-23 16:52:00 QnggBS/RiH4gkQqRhdNMXs6dC1R05iZUyTiFfV jIH2B0eXztpGbpRr/r/rbj0oV56774-13-54S5 6:52:00 Images from the original note were [...] spurt cluster feeds;Position changes;Breaking seal;LactogenesisHandouts given EnglishLactation Tree Fruit [employer] Farmer ObservationBreastfeeding Reported;Mom states latches well with no painFollow up Mom will call staffRecommended Feeding PlanRecommended feeding plan On-demand , 8-12 times in 24 hours not to exceed 6 hours between feeds;Frequent fqpe-be-efdw time with parentsOTHER$ SERVICES Marlene Cyr, MSN, RNC-MNN, IBCLC 72997-7Vqgorrwjye PcsfEX5242-90-76A83:12:47Obstetrics NoteTXT1.2.840.094897.1.13.104.2.7.2.7 53965|[id number] for patient ohkf69230-8AskxAUEYYMGEGKCIvfursxfg C-CDA narrative [id number] D Sheffield RN[id number] MFJLHVRVQPFTXLVGBNVE5725-52-01O74:12:4 71.2.840.738996.1.72.3.15|1.2.840.1143 50.1.13.104.2.7.2.727879_[id number] Annika Cyr [facility] 2023-10-23 16:16:01 BXmmEsxtMD1uV0IStTj/U5FD14+egKMqT6vHs6 kfwzs7fPi9hfc8p+n1GxLZSL6a5162-79-57U0 6:16:01 Problem: Falls, Risk ofGoal: Absence of fallsOutcome: Progressing as expectedProblem: Discharge Planning - PostpartumGoal: Adequate for dischargeOutcome: Progressing as expectedGoal: Mood stableOutcome: Progressing as expectedProblem: Infection RiskGoal: Absence of infectionOutcome: Progressing as expected 62200-3Dhke of care gxmnRC4736-04-33P85:16:03Plan of care noteTXT1.2.840.375843.1.13.104.2.7.2.7 59292|[id number] for patient phfj62693-2XetsIMPVMIUIMNBRxshqadmh C-CDA narrative vqpk544404305TsmhpJovan Dang RN[id number] JTDQYGLSAIBGSTPOTUQA7870-69-03F98:16:0 31.2.840.505598.1.72.3.15|1.2.840.1143 50.1.13.104.2.7.2.727879_[id number] Jovan Dang [facility] 2023-10-23 08:00:00 ddGs97mYm1JOp19m6Dk2qWr8NYykSe/Hf/DwsG ee1zZyNsd0ZwN2AcV7xjkzrNYp5239-16-67R2 8:00:00 BILATERAL TUBAL LIGATION PROCEDURE NOTEDate: 4Preoperative Diagnosis: MPDPSPostoperative Diagnosis: MPDPSProcedure: Modified Warren bilateral tubal ligationSurgeon: MICAELA Alarcon Faculty: Zoya [...] tube was ligated and resected with Modified Warren technique - Beverly clamp was placed on fallopian tube and [...] 0-plain gut sutures times two with Modified Warren technique - Ej clamp was placed on [...] 10/24/2023 8:48 AM CST I was supervising [facility] faculty present for this procedure. I was present for all valdes portions of the procedure. I have attached an additional note if there were special circumstances during this procedure.42318-1Dhuqcmy Surgical operation [id number], Shannon M1.2.840.351541.1.13.104.2.7.2.776486K bodjIadldqzHHW0610-22-19D05:48:08Surge ry Surgical operation noteTXT1.2.840.256443.1.13.104.2.7.2.7 94704|[id number] for patient ortn80530-0PmskPURRIYUPHWXHwufxszsq C-CDA narrative text[id number] DJDIEHGWHSIKRQBSLQDY8132-08-09K80:48:0 81.2.840.665733.1.72.3.15|1.2.840.1143 50.1.13.104.2.7.2.727879_[id number] [facility] 2023-10-23 07:48:24 EZbztgn74oF5agb55IwDGi0RUMkFbBpIHl9XFq dMpdV1VWaGafC6muT1e8Zu5zU77931-27-42F5 7:48:24 Problem: Intrapartum process (including labor pain)Goal: Absence of or reduction of complications of laborOutcome: ResolvedGoal: Able to cope with painOutcome: ResolvedGoal: Adequate to move to next level of careOutcome: ResolvedGoal: Reduction in pain sensationOutcome: Resolved 82395-3Ofpq of care fdkgRL3565-98-96P30:48:26Plan of care noteTXT1.2.840.790205.1.13.104.2.7.2.7 74763|[id number] for patient rxgw66778-7EtytSIWAIFCLDJOChswphiaf C-CDA narrative text[id number] DQUFCQCBFUEBSXNENJAJ6301-67-29N05:48:2 61.2.840.556128.1.72.3.15|1.2.840.1143 50.1.13.104.2.7.2.727879_[id number] [facility] 2023-10-23 06:41:10 T91vzQwDK/cxFsjA2vF99vaoP1sn9SyThWHe3b j/yEHsfnpU2HCgU7FQZg8qQzKz1973-81-49C5 6:41:10 Patient: Angel LeonardoProramy SummaryDate: 10/22/23 Room [...] returned to baselineRespiratory status: acceptableHydration status: acceptable 67721-0Bkrzpqrcambduz Postoperative evaluation and management himmSL2549-00-80D57:41:19Anesthesiolog y Postoperative evaluation and management noteTXT1.2.840.044725.1.13.104.2.7.2.7 54550|[id number] for patient jppy83023-0Wwexpcdk operation noteLNNARRATIVEFormatted C-CDA narrative textAN-ANESTHESIOLOGY ANESTHESIOLOGISTAN-ANESTHESIOLOGY ANESTHESIOLOGISTUT[address] StreetUp[id number] WRIEPEUYAYHDEDKTQFZC2093-94-36B18:41:1 91.2.840.757703.1.72.3.15|1.2.840.1143 50.1.13.104.2.7.2.727879_[id number] AN-ANESTHESIOLOGY ANESTHESIOLOGIST [facility] 2023-10-23 01:59:47 xuPFRY40bI651N9l+v0U02QNLC6nJFe55JtChV B8PILhYbqZJo9RkhNRfZVBv3Zi0644-41-73G6 1:59:47 DELIVERY BY SPONTANEOUS VAGINAL DELIVERYDelivery Date: 10/23/2023 Delivery Time: 1:47 AMDelivery SummaryThe patient was admitted to the Labor & Delivery unit for sIOL at 39 weeks.Delivery Physician: Jo Milligan MDTeaching Assist: Miesha Hall MDOB Faculty: LYNNE PEMBERTON, ETIENNEAbrazo Central Campuspartum Anesthesia/Analgesia: EpiduralMode of Delivery: Delivery of castellon [...] to RR.Jamaica Batista MD57057-2Labor and delivery summary [id number], Faranak1.2.840.763083.1.13.104.2.7.2.8 43690WaeljvJjdgrsaIH1841-68-11Y41:10:1 0Labor and delivery summary noteTXT1.2.840.312937.1.13.104.2.7.2.7 64084|[id number] for patient zlrb31058-3WnazGUQVAPMYWBDLbppyxhbk C-CDA narrative textOG-OBSTETRICS & GYNECOLOGYOG-OBSTETRICS & GYNECOLOGY[address] QkziWerromscoBwngxqsskNJIX3239662252RG JITACDDTUYOFREIWAVWV5746-79-95F10:10:1 01.2.840.631264.1.72.3.15|1..840.1143 50.1.13.104.2.7.2.727879_[id number] -OBSTETRICS & GYNECOLOGY [facility] 2023-10-22 20:57:27 873wZ+MKeHt/IWKhTZCsr6SWzEcLJ1azKtvY90 oXp5vDH9XVxDmTuZM8E6VPS2jh0383-03-19L6 0:57:27 Problem: Intrapartum process (including labor pain)Goal: Absence of or reduction of complications of laborOutcome: Progressing as expectedGoal: Able to cope with painOutcome: Progressing as expectedGoal: Adequate to move to next level of careOutcome: Progressing as expectedGoal: Reduction in pain sensationOutcome: Progressing as expectedProblem: Falls, Risk ofGoal: Absence of fallsOutcome: Progressing as expected 49964-2Nobu of care tnaaRB1753-41-77W49:57:30Plan of care noteTXT1.2.840.950312.1.13.104.2.7.2.7 79940|[id number] for patient tdld74438-1XavnPUHJFTFXLWIHdslehfsu C-CDA narrative text[address] XhfxKmuuruqcqNmbocgthfPCUY5624749136UH DYBTHIRSPUHXSTTERCBC2967-58-59O57:57:3 01..840.377665.1.72.3.15|1..840.1143 50.1.13.104.2.7.2.727879_[id number] [facility] 2023-10-22 20:45:38 svaNTmjZ8PLC1YEYNv5KfiviZskeGQwi9Q4KUf V0cy5DeQ3zAvL6kvXMdTH21J5a7492-63-84W9 0:45:38 Intrapartum Progress Note10/22/2023 8:45 PMSubjective: Patient [...] Leonardo is a 28 year old at 28d6bOO Assessment: IOL, MPDPS, asthmaOB Plan: s/p FB, Pit@1500Additional Comments/Detail: AROM moderate clear fluid. Pt comfortable with epidural.Ripening Agent: Bales bulbIntrapartum Plan: [place] [address]-0Sqoheqic umcjPV2529-31-25J35:45:42Progress noteTXT1.2.840.916843.1.13.104.2.7.2.7 18215|[id number] for patient ovbr92829-8EvywRQUGRSOQVNTYojkffqyj C-CDA narrative textOG-OBSTETRICS & GYNECOLOGYOG-OBSTETRICS & GYNECOLOGY[address] RuzwXluf[id number] MBZFIGXZANCZFKPWBRUO9161-13-61X05:45:4 21.2.840.820986.1.72.3.15|1.2.840.1143 50.1.13.104.2.7.2.727879_[id number] -OBSTETRICS & GYNECOLOGY [facility] 2023-10-22 20:02:13 /X74bY1qptrARWqnHiBQLTXGCIx4KTvV5DbQb5 LfZ4Y8h637IIZZ0nN9h6rvPcxf5221-19-26G2 0:02:13 Name/ MRN / Age / Gender:Angel Leonardo, [id number] year old femaleBMI:Estimated body mass index is [...] surgeons listed *Procedure: CENTRAL NEURAXIAL BLOCKOR Location: [facility] ANESTHESIA OUT OF OR - OR LOCATIONAnesthesia Preop Eval (physical exam)Anesthesia Preop: Ussp-gf-NnmwUON Status VerifiedClear Liquids: > 2 HoursSolid Food/Non-Clear [...] 325 on 10/03/23- PP control plan: [facility] Presentation on admission: cephalic- anterior placenta- EFW: 3134 g, 25%tile- FHT reactive and reassuring- Normal anatomy scan- NT negative, NIPT low risk, MSAFP wnlPediatricNeonatalPreoperative Medication InstructionsContinue taking all prescribed medications except:EMANI inhibitors, ARBs, diuretics, all oral diabetes medicationsAnticoagulant Therapy: Defer to surgeonsInsulin: Take 1/2 dose the night prior to surgery. Hold on DOS.Phentermine: Alert [facility] anesthesiologistSGLT2 Inhibitors: "gliflozins" to be held for [...] routine analgesia & antiemeticsRecovery Plan: LDRAdditional comments: 05345-7Lrjczrcqauoeey Preoperative evaluation and management vnozHG8486-79-25H16:47:00Anesthesiolog y Preoperative evaluation and management noteTXT1..840.227209.1.13.104.2.7.2.7 83760|[id number] for patient lzdv69834-4Wesicwdl operation noteLNNARRATIVEFormatted C-CDA narrative textUT[address] StreetMd[id number] JJVZVDVTQREDYOUGQXJS2193-86-29J38:47:0 01.840.915656.1.72.3.15|1.2.840.1143 50.1.13.104.2.7.2.727879_[id number] [facility] 2023-10-22 18:51:28 l/5eEvpkVj5uH4lEQJagkyzsOvzurUsbjmi1KF L/8pGYyZ7f0ir2LU6/l0mRzo5Y7892-44-09Z2 8:51:28 Problem: Intrapartum process (including labor pain)Goal: Absence of or reduction of complications of laborOutcome: Progressing as expectedGoal: Able to cope with painOutcome: Progressing as expectedGoal: Adequate to move to next level of careOutcome: Progressing as expectedGoal: Reduction in pain sensationOutcome: Progressing as expected 13107-0Bgip of care hdteNI4723-21-47M94:51:32Plan of care noteTXT1.2.840.227438.1.13.104.2.7.2.7 50173|[id number] for patient zjqo30456-7KlhvYPKGMKDGCNKDxeocsvfh C-CDA narrative ucqm549945252Ohuznhz Bland RN[id number] WGJIUGMLXPVCWDMAXVSD7402-72-05Q48:51:3 21.2.840.509096.1.72.3.15|1.2.840.1143 50.1.13.104.2.7.2.727879_[id number] Lissette Davis RN [facility] 2023-10-05 09:18:46 ndKQIUFhgxbWmGkXLELETVcMH1+eyS83UN7XNu C9HinMLQ1aKkSRIt1ezYNLIZge4335-34-54R5 9:18:46 Patient informed of results and importance of taking the iron supplement. 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 49687-2Zhlzrkbrj encounter EfbjZM5439-10-70U03:20:53Telephone encounter NoteTXT1.2.840.186251.1.13.104.2.7.2.7 82629|[id number] for patient llvu75303-2KifzJZAJMZKGPWSCrtwrnfqd C-CDA narrative textUTMB55 [address] [id number] YXBICDZTGMQVKMJYUVCA1246-32-68Q82:20:5 31.2.840.845119.1.72.3.15|1.2.840.1143 50.1.13.104.2.7.2.727879_[id number] [facility] 2023-10-05 09:15:20 Qp59VoYN9qECzPXK9FVk3ZZhAVEvfmSA3azu1j TVK8DNWzFqI6nqLO3Cu+j/ftEZ5860-41-67R6 9:15:20 Pt returning call, please call back [phone] (home) 25251-7Feuskjzjf encounter ExiuOI8020-75-49Q14:15:49Telephone encounter NoteTXT1.2.840.792673.1.13.104.2.7.2.7 78013|[id number] for patient qpmq98248-5LbywEJPFEIRSOXEYoyhxqtyp C-CDA narrative dmbd3986397KX [id number] CCHXRSRKJYXLMFKXMZLZ2530-06-94C30:15:4 91.2.840.004972.1.72.3.15|1.2.840.1143 50.1.13.104.2.7.2.727879_[id number] BLAKE Rincon [facility] 2023-10-05 08:28:22 B6LxD5IGZu5/1hdgR4ZDBK1G/FV5Q/obpGOtoY CEOPFskuTfSnP0luozje8G1ZIi1910-53-68J6 8:28:22 Attempted to call patient, no answer, [place]. 13737-7Ilgssqxix encounter YphfUU4101-65-56J41:28:52Telephone encounter NoteTXT1.2.840.100301.1.13.104.2.7.2.7 81328|[id number] for patient sxdf09434-8CifmWHVTZVUSAXBLvctiquol C-CDA narrative [id number] OJNBVHDRVMMLWUJLUWWC1191-44-60V21:28:5 21.2.840.110804.1.72.3.15|1.2.840.1143 50.1.13.104.2.7.2.727879_[id number] [facility] 2023-10-05 07:27:01 sg9c5JZeWf/As2ZNxIIt8ULz47akHL2hag2grS fuXTNFq36F5r2BBqso0Iegtujp4867-19-42K0 7:27:01 Please call patient and let her [...] but she will need to go to [place] 3 days in row for any effect. 28021-3Oxgdexbxr encounter LxwsCB3250-76-73Y60:30:32Telephone encounter NoteTXT1.2.840.649958.1.13.104.2.7.2.7 79808|[id number] for patient oomr88094-8UzmyIBLNZYGXLPQDxfcthwov C-CDA narrative text[id number] QZGZGNFEMUCSRGBBVIVT0689-20-72T53:30:3 21.2.840.663210.1.72.3.15|1.2.840.1143 50.1.13.104.2.7.2.727879_[id number] [facility] 2023-06-15 10:02:39 l9dMQ5iI7SSfMWCgIH/F6siXCpucR42lJbOdwN k5/mr+vhXK/A4EtU8DjxoWX9458620-85-68P9 0:02:39 Advised patient she can still be seen in clinic and can be tested for symptoms, verbalized understanding. 64333-9Qivbmeaml encounter LktjTL7917-70-65C03:03:21Telephone encounter NoteTXT1.2.840.234264.1.13.104.2.7.2.7 05972|8240581003LKDgcwzzfww for patient lnpk17676-2YcacSBEFYYCMLV[address] IesuXhtqqlqdpOcbgvnoiwYXHS7486117899JZ IPRZRWFJCBIYZMFHWOMF4831-63-66Q74:03:2 11.2.840.453466.1.72.3.15|1.2.840.1143 50.1.13.104.2.7.2.727879_[id number] [facility] 2023-06-15 09:48:15 f/EzNSKsl03yJ5mrZdG3TOPDPZHIxXO1v6PB6T 1DW8fpA1Q2lx4hk4mmLvYTrNVz7805-70-29W3 9:48:15 This patient called to reschedule her appt with High Risk due to having symptoms of:Cough, sore throat and stuffy nose.Please call patient to let her know what over the counter medications she can have while . 47920-7Pthcxmspo encounter PpvhEN7047-99-85K22:50:17Telephone encounter NoteTXT1.2.840.678568.1.13.104.2.7.2.7 46779|[id number] for patient zsys58058-5HyolFB394315132Hhkds L [id number] JEUQNYTEOGEVIMSFNPHJ3148-71-14V48:50:1 71.2.840.475466.1.72.3.15|1.2.840.1143 50.1.13.104.2.7.2.727879_[id number] Xiomara Georges [facility]
[2024-01-11] MEDS ORDERED: KETOROLAC 30 MG/ML INJ ONE (19:25)
[2024-01-11] MEDS ORDERED: GABAPENTIN 300 MG CAP ONE (19:25)
--- NOTE | 2024-01-11 21:34 | RAD REPORT ---
EXAM DESCRIPTION: CT - Pelvis Wo Cont - 01/11/2024 8:25 pm CLINICAL HISTORY: right hip pain COMPARISON: No comparisons TECHNIQUE: Thin cut axial CT imaging of the pelvis was performed without IV contrast. Multiplanar re formats were generated and reviewed. All CT scans are performed using dose optimization technique as appropriate and may include automated exposure control or mA/KV adjustment according to patient size. FINDINGS: No acute osseous abnormality or suspicious osseous lesion. Pelvic ring is intact. Joint al ignment is maintained. No significant degenerative changes or erosions. No suspicious masses or adenopathy in the pelvis. Visualized bowel is unremarkable. No free air, free fluid, or suspicious fluid collections. Bulky appearance of the uterus, could indicate underlying sm all fibroids. Mild disc bulges at L4-5 and L5-S1. IMPRESSION: No acute osseous abnormality or suspicious osseous lesions. Incidental findings as above . .
[2024-01-11] MEDS ORDERED: HYDROCODONE/APAP 5/325 MG TAB ONE (22:01)
[2024-01-11] MEDS ORDERED: dexAMETHasone 10 MG/ML VIAL ONE (22:01)
[2024-01-11 22:24] LABS: Specific Gravity 1.014 (1.005-1.030); Urine Bacteria None Seen /HPF (<20); Urine Bilirubin NEGATIVE (Negative); Urine Blood Negative (Negative); Urine Clarity Extremely Turbid (Clear); Urine Color Light-Yellow (Yellow); Urine Culture Reflex Order NOT NEEDED; Urine Glucose NEGATIVE (Negative); Urine Ketones NEGATIVE (Negative); Urine Micro Reflex YN NO BILL MICROSCOPIC; Urine Mucus Slight /HPF (None Seen); Urine Nitrite NEGATIVE (Negative); Urine Protein NEGATIVE (Negative); Urine RBC <5 /HPF (None Seen); Urine Urobilinogen Normal (Normal); Urine pH 6.5 (5.0-7.0)
--- NOTE | 2024-01-11 22:24 | ER ---
Nurse's Notes [facility] Name: Angel Leonardo Age: 28 yrs Sex: Female : 1995 Arrival Date: 01/11/2024 Time: 18:53 Bed 11 Private MD: Diagnosis: Pain in right hip;Mononeuropathy, unspecified Presentation: 01/10 19:34 Chief complaint: EMS states: of right thigh and hip pain that started this morning. cp4 Patient reports no problems with urination or bowel movements. Coronavirus screen: Client denies travel out of the [place] in the last 14 days. At this time, the client does not indicate any symptoms associated with coronavirus-19. Ebola Screen: Patient negative for fever greater than or equal to 101.5 degrees Fahrenheit, and additional compatible Ebola Virus Disease symptoms. Initial Sepsis Screen: Does the patient meet any 2 criteria? No. Patient's initial sepsis screen is negative. Does the patient have a suspected source of infection? No. Patient's initial sepsis screen is negative. Risk Assessment: Do you want to hurt yourself or someone else? Patient reports no desire to harm self or others. Onset of symptoms was January 11, 2024. 19:34 Method Of Arrival: EMS: [facility] cp4 19:34 Acuity: AURELIO 4 cp4 Triage Assessment: 19:37 General: Appears uncomfortable, Behavior is calm, cooperative, appropriate for age. cp4 Pain: Pain currently is 10 out of 10 on a pain scale. Musculoskeletal: Reports. 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 - Social history:: Smoking status: Patient denies any tobacco usage or history of. Screenin:[address] [facility] ED Fall Risk Assessment (Adult) History of falling in the last 3 months, cp4 including since admission No falls in past 3 months (0 pts) Confusion or Disorientation No (0 pts) Intoxicated or Sedated No (0 pts) Impaired Gait No (0 pts) Mobility Assist Device Used No (0 pt) Altered Elimination No (0 pt) Score/Fall Risk Level 0 - 2 = Low Risk Oriented to surroundings, Maintained a safe environment, Assessed \T\ reinforced patient's understanding of fall precautions, Hourly rounding (assess needs \T\ fall precautionary measures) done. Abuse screen: Denies threats or abuse. Nutritional screening: No deficits noted. Tuberculosis screening: No symptoms or risk factors identified. Assessment: 19:38 Reassessment: No changes from previously documented assessment. cp4 22:37 General: Appears in no apparent distress. Behavior is calm, cooperative. Pain: kd3 Complains of pain in right hip. Neuro: Level of Consciousness is awake, alert, obeys commands, Oriented to person, place, time, situation. Cardiovascular: Patient's skin is warm and dry. Respiratory: Airway is patent Trachea midline Respiratory effort is even, unlabored, Respiratory pattern is regular, symmetrical. Vital Signs: 19:34 BP 113 / 96; Pulse 72; Resp 18; Temp 98; Pulse Ox 100% ; Weight 72.57 kg; Height 5 ft. cp4 7 in. ; Pain 10/10; 22:37 BP 126 / 95; Pulse 70; Resp 16; Pulse Ox 100% on R/A; kd3 19:34 Body Mass Index 25.06 (72.57 kg, 170.18 cm) cp4 19:34 Pain Scale: Adult cp4 ED Course: 19:00 Patient arrived in ED. rv1 19:05 María Donohue PA-C is PHCP. sb4 19:05 Sergio Samuel MD is Attending Physician. sb4 19:16 Radiology exam delayed due to test not completed at this time. nj 19:21 Jo Red is Primary Nurse. cp4 19:36 Triage completed. cp4 19:37 Arm band placed on right wrist. Patient placed in an exam room, on a stretcher. cp4 19:38 Bed in low position. Call light in reach. Side rails up X 1. cp4 19:38 No provider procedures requiring assistance completed. cp4 20:[address] In Process Unspecified. EDMS 22:09 UAM Sent. kd3 22:22 Preston Navarro MD is Referral Physician. sb4 22:38 Provided Education on: medication use. kd3 22:38 Patient did not have IV access during this emergency room visit. kd3 Administered Medications: 19:29 Drug: Ketorolac IM 30 mg IM once Route: IM; Site: right deltoid; cp4 22:39 Follow up: Response: No adverse reaction; Pain is decreased kd3 19:30 Drug: Gabapentin PO 300 mg PO once Route: PO; cp4 22:39 Follow up: Response: No adverse reaction; Pain is decreased kd3 22:08 Drug: HYDROcodone-acetaminophen PO 5 mg-325 mg 2 tabs PO once Route: PO; kd3 22:39 Follow up: Response: No adverse reaction; Pain is decreased kd3 22:09 Drug: Dexamethasone IM 10 mg IM once Route: IM; Site: right gluteus; kd3 22:39 Follow up: Response: No adverse reaction; Pain is decreased kd3 Medication: 19:38 VIS not applicable for this client. cp4 Outcome: 22:23 Discharge ordered by MD. sb4 22:38 Discharged to home ambulatory, kd3 22:38 Condition: stable 22:38 Discharge instructions given to patient, family, Instructed on discharge instructions, follow up and referral plans. medication usage, Demonstrated understanding of instructions, follow-up care, medications, Prescriptions given X 4, 22:40 Patient left the ED. kd3 Signatures: Dispatcher [employer] EDMS Eugenio Sanabria Kyli, RN RN kd3 María Donohue PA-C PA-C sb4 Sabra Vasquez Christina cp4
--- NOTE | 2024-01-11 22:24 | EDPHYS ---
Physician Documentation [facility] Name: Angel Leonardo Age: 28 yrs Sex: Female : 1995 Arrival Date: 01/11/2024 Time: 18:53 Bed 11 Private MD: ED Physician Sergio Samuel HPI: 01/10 19:19 This 28 yrs old Female presents to ER via Unassigned with complaints of Hip sb4 Pain. 19:19 The patient or guardian reports pain. Patient states that she started experiencing sb4 right hip pain early this morning. She states the pain is in her lateral right thigh and radiates to her hip and lower back. Took ibuprofen early this morning which improved her pain but has not taken anything since. She denies any injury or any prior incidences . 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 - Social history:: Smoking status: Patient denies any tobacco usage or history of. ROS: 19:19 Constitutional: Negative for fever, chills, and weight loss, sb4 19:19 MS/extremity: Positive for pain, of the right hip, 19:19 All other systems are negative, Exam: 19:19 Head/Face: Normocephalic, atraumatic. Eyes: Extra-ocular motions intact. Periorbital sb4 areas with no swelling, redness, or edema. ENT: Mucous membranes moist. Cardiovascular: Regular rate and rhythm with a normal S1 and S2. Respiratory: Lungs have equal breath sounds bilaterally, clear to auscultation and percussion. No rales, rhonchi or wheezes noted. No increased work of breathing, no retractions or nasal flaring. Abdomen/GI: Soft, non-tender, no distension. Skin: Warm, dry with normal turgor. Normal color with no rashes, no lesions, and no evidence of cellulitis. Neuro: Awake and alert, GCS 15, oriented to person, place, time, and situation. Motor strength 5/5 in all extremities. Sensory grossly intact. 19:19 Constitutional: The patient appears alert, awake, uncomfortable, Crying 19:19 Musculoskeletal/extremity: Tenderness to palpation right hip. Pain with ROM. no vertebral tenderness. Strength and sensation fully intact. Vital Signs: 19:34 BP 113 / 96; Pulse 72; Resp 18; Temp 98; Pulse Ox 100% ; Weight 72.57 kg; Height 5 ft. cp4 7 in. ; Pain 10/10; 22:37 BP 126 / 95; Pulse 70; Resp 16; Pulse Ox 100% on R/A; kd3 19:34 Body Mass Index 25.06 (72.57 kg, 170.18 cm) cp4 19:34 Pain Scale: Adult cp4 MDM: 19:05 Patient medically screened. sb4 22:22 Data reviewed: vital signs, nurses notes, lab test result(s), radiologic studies, and sb4 as a result, I will discharge patient. Historians other than the Patient: Parent: mother. Counseling: I had a detailed discussion with the patient and/or guardian regarding the historical points, exam findings, and any diagnostic results supporting the discharge/admit diagnosis, lab results, radiology results, to return to the emergency department if symptoms worsen or persist or if there are any questions or concerns that arise at home. 01/10 21:48 Order name: [facility]; Complete Time: 22:24 sb4 01/10 19:14 Order name: Pelvis Wo Cont CT; Complete Time: 21:35 sb4 Administered Medications: 19:29 Drug: Ketorolac IM 30 mg IM once Route: IM; Site: right deltoid; cp4 22:39 Follow up: Response: No adverse reaction; Pain is decreased kd3 19:30 Drug: Gabapentin PO 300 mg PO once Route: PO; cp4 22:39 Follow up: Response: No adverse reaction; Pain is decreased kd3 22:08 Drug: HYDROcodone-acetaminophen PO 5 mg-325 mg 2 tabs PO once Route: PO; kd3 22:39 Follow up: Response: No adverse reaction; Pain is decreased kd3 22:09 Drug: Dexamethasone IM 10 mg IM once Route: IM; Site: right gluteus; kd3 22:39 Follow up: Response: No adverse reaction; Pain is decreased kd3 Disposition Summary: 01/11/24 22:23 Discharge Ordered Notes: Location: Home sb4 Problem: new sb4 Symptoms: have improved sb4 Condition: Stable sb4 Diagnosis - Pain in right hip sb4 - Mononeuropathy, unspecified sb4 Followup: sb4 - With: Preston Navarro MD - When: As needed - Reason: Further diagnostic work-up, Recheck today's complaints, Re-evaluation by your physician Discharge Instructions: - Discharge Summary Sheet sb4 - Musculoskeletal Pain sb4 - Pinched Nerve sb4 Forms: - Thank You Letter sb4 - Patient Portal Instructions sb4 - Leadership Thank You Letter sb4 Prescriptions: - gabapentin 100 mg Oral capsule - take 2 capsule ORAL route every 8 hours; 20 capsule; Refills: 0, Product sb4 Selection Permitted - Diclofenac Sodium 75 mg Oral Tablet Sustained Release - take 1 tablet ORAL route 2 times per day; 30 tablet; Refills: 0, Product sb4 Selection Permitted - Medrol (Oliverio) 4 mg Oral Tablets, Dose Pack - take 1 tablet ORAL route as directed - follow package instructions; 1 packet; sb4 Refills: 0, Product Selection Permitted - Cyclobenzaprine 5 mg Oral Tablet - take 1 tablet ORAL route 3 times per day As needed; 15 tablet; Refills: 0, sb4 Product Selection Permitted Signatures: Dispatcher [employer] Maria Elena Mayers RN RN kd3 María Donohue PACalos PACalos sb4 Jo Red cp4
[2024-01-11 23:13] VITALS: TEMP 98; O2SAT 100
[2024-01-11 23:35] VITALS: BP 126/95
== END 2024-01-11 22:40 | disposition home or self-care (01) ==
LOC: ER 18:53
DX: G58.9 Mononeuropathy, unspecified (principal)
CPT/HCPCS: 81001; 72192; 96372; 99284; J1100